=== PATIENT | female | born 1950 | race Caucasian/White ===

== ENCOUNTER 2016-06-09 18:19 | Inpatient (IN) | payer OTHER ==
[~2016-06-09] VITALS: Ht 152.4 cm; Wt 96.3 kg
[~2016-06-09 18:19] MED LIST: AMLO5TAB2 PO; CTP/1 PO; FERR325T51 PO; FURO-85 PO; GABA-113 PO; INSUINJ7 SC; INSUINJ8 SC; LOVA20TA4 PO; METO25TA3 PO; MULT-506 PO; POLYSOL21 OPB; PRLSR20 PO
[2016-06-09] MEDS ORDERED: MECLIZINE HCL 12.5 MG TAB PO STA (19:18)
[2016-06-09] MEDS ORDERED: SODIUM CHLORIDE 0.9% 1000ML 250 ML IV STA (19:18)
[2016-06-09] MEDS ORDERED: ACETAMINOPHEN 500 MG TAB PO STA (19:18)
[2016-06-09 19:27] LABS: BASO % 0.3 %; BASO ABS # 0.03 K/uL (0-0.2); COMPLETE YES; EOS % 4.6 %; HEMATOCRIT 28.9 % (37-47); IG% 0.9 %; LYMPH % 15.9 %; MEAN CELL VOLUME 85.5 fL (80-100); MEAN CORPUSCULAR HEMOGLOBIN 28.7 pg (25-34); MEAN CORPUSCULAR HGB CONC 33.6 g/dl (32-36); MONO % 3.1 %; NEUT % 75.2 %; PLATELET COUNT 266 K/uL (130-400); RED BLOOD COUNT 3.38 M/uL (4.2-5.4); WHITE BLOOD COUNT 11.34 K/uL (4.8-10.8)
--- NOTE | 2016-06-09 19:29 | EMERGENCY ROOM VISIT NOTE ---
History Report prepared by Kwame: Clifton Singh Under the Supervision of: Dr. Abe Palencia M.D. First contact with patient: 19:08 Chief Complaint: DIZZY Stated Complaint: DIZZINESS History of Present Illness The patient is a 65 year old female who presents to the Emergency Room with complaints of persistent dizziness beginning twelve hours prior to arrival. She currently rates her discomfort as an 8/10 in severity. She associates a headache , difficulty focusing her vision, and right arm numbness with today's symptoms. The patient states her dizziness worsens with movement and improves with rest. She notes the vision has appeared blurry since she woke up this morning. The patient states she has a history of vertigo. She notes her right shoulder began feeling numb three hours ago, and she states a history of a right shoulder replacement, as well. The patient denies recent falls or injury to her right shoulder. She states she did not experience these symptoms yesterday, but she did have a headache yesterday before she went to bed that was an 8/10. The patient denies taking anything for her headache yesterday. She notes she has a history of a stroke in November 2014, in which, she has muffled hearing in her left ear. The patient states she takes Aspirin. She denies nausea, vomiting, urinary symptoms, bloody or black stool, fever, abdominal pain, chest pain, numbness in the face, and change in speech. 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 A total of 10 systems reviewed and were otherwise negative. Past Medical & Surgical Medical Problems: (1) Anxiety (2) CAD (coronary artery disease) (3) CKD (chronic kidney disease) stage 3, GFR 30-59 ml/min (4) Depression (5) Diabetes (6) GERD (gastroesophageal reflux disease) (7) Hyperlipidemia (8) Hypertension (9) Interstitial lung disease (10) KUSHAL (obstructive sleep apnea) Surgical Problems: (1) Hx of shoulder surgery (2) Hx of total knee replacement Family History Diabetes mellitus FHx: gallbladder disease Hypertension Kidney disease Social History Smoking Status: Never Smoker Alcohol Use: none Drug Use: none Marital Status: Housing Status: lives with family Current/Historical Medications Scheduled Amlodipine Besylate (Amlodipine Besylate), 10 MG PO DAILY Aspirin (Aspirin Ec), 81 MG PO DAILY Calcium/Vitamin D ([place] 500 Plus D), 1 TAB PO DAILY Cholecalciferol (Vitamin D3), 1 TAB PO DAILY Docusate Sodium (Docusate Sodium), 1 CAP PO BID Ferrous Sulfate (Ferrous Sulfate), 325 MG PO BID Furosemide (Furosemide), 20 MG PO DAILY Insulin Isophane (Human) (Novolin N Relion), 55 UNITS SC Q12 Insulin Regular (Human) (Novolin R Relion), SQ ACHS Magnesium Oxide (Mag-Ox), 400 MG PO DAILY Metoprolol Tartrate (Lopressor), 12.5 MG PO BID Nystatin (Topical) (Nystatin), 1 APPLN TOP TID Pantoprazole Sodium (Protonix), 20 MG PO DAILY Simvastatin (Simvastatin), 10 MG PO DAILY Sumatriptan Succinate (Imitrex), 25 MG PO PRN UD Scheduled PRN Acetaminophen Tab (Tylenol), 650 MG PO Q6 PRN for Pain Meclizine Hcl (Meclizine Hcl), 25 MG PO TID PRN for Dizziness or Vertigo Allergies Coded Allergies: Codeine (Verified Allergy, Intermediate, hives, 09/23/15) Morphine (Verified Allergy, Mild, 09/23/15) Pioglitazone (Verified Adverse Reaction, Intermediate, Rash/Fluid retention, 09/23/15) RETAINS FLUID Physical Exam Vital Signs Date Time Temp Pulse Resp B/P Pulse Ox O2 Delivery O2 Flow Rate FiO2 06/09/16 20:25 59 26 138/61 97 Room Air 06/09/16 19:43 Room Air 06/09/16 19:21 53 06/09/16 18:56 36.6 67 18 114/59 94 Room Air Physical Exam GENERAL: Patient is in no acute distress. HEENT: No nystagmus. No acute trauma, normocephalic atraumatic, mucous membranes moist, no nasal congestion, no scleral icterus. NECK: No stridor, no adenopathy, no meningismus, trachea is midline. LUNGS: Clear to auscultation bilaterally, no wheeze, no rhonchi, breath sounds equal. HEART: Bradycardic with a regular rhythm, no murmurs. ABDOMEN: Soft, nontender, bowel sounds positive, no hernias, no peritonitis. EXTREMITIES: Mild bilateral pedal edema. No cyanosis, no signs for acute trauma. NEUROLOGIC: No speech slur or facial droop. Oriented X 3 and awake. No deficits to the lower extremities. Right upper extremity testing impossible due to previous right shoulder injury. SKIN: No rash, no jaundice, no diaphoresis. Medical Decision & Procedures ER Provider Diagnostic Interpretation: X ray results and stated below per my interpretation and radiologist interpretation. Other radiology results and stated below per my review and radiologist interpretation: SINGLE VIEW CHEST CLINICAL HISTORY: Weakness. Change in mental status. FINDINGS: An AP, portable, upright chest radiograph is compared to study dated 07/17/2015. The examination is degraded by portable technique, large body habitus, apical lordotic positioning, and patient rotation. The heart is enlarged and there is atherosclerotic calcification of the thoracic aorta. The pulmonary vasculature is noncongested. Chronic interstitial thickening is similar to previous. The lungs and pleural spaces are clear. No pneumothorax is seen. The skeletal structures are osteopenic. The bony thorax is grossly intact. A right shoulder arthroplasty is in place. IMPRESSION: Cardiomegaly with no acute cardiopulmonary abnormality. Electronically signed by: Abe Tanner M.D. 06/09/2016 8:[address] SCAN OF THE BRAIN WITHOUT IV CONTRAST CLINICAL HISTORY: Change in mental status. Weakness. COMPARISON STUDY: CT of the brain dated 07/17/2015. TECHNIQUE: Unenhanced axial CT scan of the brain is performed from the vertex to the skull base. CT DOSE: 537.48 mGy.cm FINDINGS: Brain parenchyma: There are age-related involutional changes noting minimal subcortical and periventricular microangiopathic change. There is no hemorrhage, mass effect, or evidence of acute territorial ischemia by CT criteria. Dang-white matter is preserved. No extra-axial fluid collection is seen. Ventricles, sulci, cisterns: Prominent secondary to involutional change. Intracranial vasculature: There is atherosclerotic calcification of the cavernous carotid and vertebral arteries. Calvarium: Unremarkable. Sinuses and mastoids: A retention cyst is partially imaged in the left maxillary antrum. Minimal secretions are seen within the sphenoid sinuses. The remaining visualized paranasal sinuses are clear. The mastoid air cells are well pneumatized. Orbits: The bony orbits are grossly intact. There are bilateral ocular lens implants. IMPRESSION: There is no hemorrhage, mass effect, or evidence of acute territorial ischemia by CT criteria. Electronically signed by: Abe Tanner M.D. 06/09/2016 8:13 PM Laboratory Results 06/09/16 19:10 Red Blood Count 3.38, Mean Corpuscular Volume 85.5, Mean Corpuscular Hemoglobin 28.7, Mean Corpuscular Hemoglobin Concent 33.6, Mean Platelet Volume 10.0, Neutrophils (%) (Auto) 75.2, Lymphocytes (%) (Auto) 15.9, Monocytes (%) (Auto) 3.1, Eosinophils (%) (Auto) 4.6, Basophils (%) (Auto) 0.3, Neutrophils # (Auto) 8.54, Lymphocytes # (Auto) 1.80, Monocytes # (Auto) 0.35, Eosinophils # (Auto) 0.52, Basophils # (Auto) 0.03 06/09/16 19:10 Test 06/09/16 19:10 06/09/16 19:23 06/09/16 19:40 White Blood Count 11.34 K/uL (4.8-10.8) Red Blood Count 3.38 M/uL (4.2-5.4) Hemoglobin 9.7 g/dL (12.0-16.0) Hematocrit 28.9 % (37-47) Mean Corpuscular Volume 85.5 fL (80-100) Mean Corpuscular Hemoglobin 28.7 pg (25-34) Mean Corpuscular Hemoglobin Concent 33.6 g/dl (32-36) Platelet Count 266 K/uL (130-400) Mean Platelet Volume 10.0 fL (7.4-10.4) Neutrophils (%) (Auto) 75.2 % Lymphocytes (%) (Auto) 15.9 % Monocytes (%) (Auto) 3.1 % Eosinophils (%) (Auto) 4.6 % Basophils (%) (Auto) 0.3 % Neutrophils # (Auto) 8.54 K/uL (1.4-6.5) Lymphocytes # (Auto) 1.80 K/uL (1.2-3.4) Monocytes # (Auto) 0.35 K/uL (0.11-0.59) Eosinophils # (Auto) 0.52 K/uL (0-0.5) Basophils # (Auto) 0.03 K/uL (0-0.2) RDW Standard Deviation 43.8 fL (36.4-46.3) RDW Coefficient of Variation 14.2 % (11.5-14.5) Immature Granulocyte % (Auto) 0.9 % Immature Granulocyte # (Auto) 0.10 K/uL (0.00-0.02) Prothrombin Time 10.0 SECONDS (9.0-12.0) Prothromb Time International Ratio 0.9 (0.9-1.1) Activated Partial Thromboplast Time 26.8 SECONDS (21.0-31.0) Partial Thromboplastin Ratio 1.0 Anion Gap 8.0 mmol/L (3-11) Est Creatinine Clear Calc Drug Dose 18.2 ml/min Estimated GFR () 17.3 Estimated GFR (Non- 14.9 BUN/Creatinine Ratio 15.2 (10-20) Calcium Level 8.4 mg/dl (8.5-10.1) Total Bilirubin 0.2 mg/dl (0.2-1) Aspartate Amino Transf (AST/SGOT) 11 U/L (15-37) Alanine Aminotransferase (ALT/SGPT) 21 U/L (12-78) Alkaline Phosphatase 82 U/L (45-117) Troponin I 0.024 ng/ml (0-0.045) Total Protein 6.4 gm/dl (6.4-8.2) Albumin 2.7 gm/dl (3.4-5.0) Globulin 3.7 gm/dl (2.5-4.0) Albumin/Globulin Ratio 0.7 (0.9-2) Thyroid Stimulating Hormone (TSH) 2.560 uIu/ml (0.300-4.500) Hepatitis C Antibody Screen NEG (NEG) Urine Color DK YELLOW Urine Appearance TURBID (CLEAR) Urine pH 5.0 (4.5-7.5) Urine Specific [place] 1.029 (1.000-1.030) Urine Protein 4+ (NEG) Urine Glucose (UA) 1+ (NEG) Urine Ketones TRACE (NEG) Urine Occult Blood 3+ (NEG) Urine Nitrite POS (NEG) Urine Bilirubin NEG (NEG) Urine Urobilinogen NEG (NEG) Urine Leukocyte Esterase MODERATE (NEG) Urine WBC (Auto) >30 /hpf (0-5) Urine RBC (Auto) >30 /hpf (0-4) Urine Hyaline Casts (Auto) 10-30 /lpf (0-5) Urine Epithelial Cells (Auto) >30 /lpf (0-5) Urine Bacteria (Auto) 2+ (NEG) Urine Pathogenic Casts /lpf (0) Urine Yeast (Auto) PRESENT (NONE PRSENT) Laboratory results reviewed by me. Medications Administered Medications (Trade) Dose Ordered Sig/Aleks Route Start Time Stop Time Status Last Admin Dose Admin Sodium Chloride (Nss 1000ml) 250 ml @ 999 mls/hr Q16M STAT IV 06/09/16 19:18 06/09/16 19:33 DC 06/09/16 20:21 999 MLS/HR Meclizine HCl (Antivert Tab) 12.5 mg NOW STAT PO 06/09/16 19:18 06/09/16 19:20 DC 06/09/16 20:20 12.5 MG Acetaminophen 1000 mg 1,000 mg NOW STAT PO 06/09/16 19:18 06/09/16 19:20 DC 06/09/16 20:20 1,000 MG Sodium Chloride (Nss 1000ml) 1,000 ml @ 125 mls/hr Q8H STAT IV 06/09/16 19:47 06/09/16 23:21 DC 06/09/16 20:21 125 MLS/HR Ceftriaxone Sodium (Rocephin Inj) 1 gm NOW STAT IV 06/09/16 20:24 06/09/16 20:25 DC 06/09/16 20:34 1 GM ECG Indication: other (dizziness) Rate (beats per minute): 54 Rhythm: sinus bradycardia Findings: no acute ischemic change, no ectopy, other (old anterior infarct) ED Course 1910: The patient was evaluated in room C9. A complete history and physical exam was performed. 1917: Ordered Tylenol Tab 1,000 mg PO, Antivert Tab 12.5 mg PO, Sodium Chloride 250 ml @ 999 mls/hr IV. 2027: Reevaluated and updated the patient at this time. 1946: Ordered Sodium Chloride 1,000 ml @ 125 mls/hr IV. 2023: Ordered Rocephin Inj 1 gm IV. 2058: I spoke to Carola Walsh PA-C, [facility] (Hospitalist) about the patient' s case, and she will follow the patient for further evaluation. Medical Decision The differential diagnoses include but are not limited to: vertigo, intracranial bleeding, stroke, worsening renal failure, electrolyte imbalance, anemia, infection, UTI. There is a mild leukocytosis which would be consistent with infection. The patient is somewhat anemic but this is baseline looking back at previous testing. Renal panel testing shows acute renal failure. There was no hepatitis. Urinalysis shows significant infection, urine culture is pending. Chest x-ray does not show pneumonia or CHF. EKG shows a sinus bradycardia, no acute ischemia. Brain CT shows no acute bleed or mass effect. The patient received IV saline, IV ceftriaxone. She received oral meclizine and oral Tylenol. The patient does feel somewhat improved. She is in acute renal failure, she has an acute UTI and a leukocytosis. I do think admission/observation is warranted. I spoke to the patient and to case management. The on-call hospitalist was consulted. Consults Time Called: 2025 Consulting Physician: Carola Walsh PA-C, [facility] (Hospitalist) Returned Call: [id number] I spoke to Carola Walsh PA-C, [facility] (Hospitalist) about the patient's case , and she will follow the patient for further evaluation. Impression Primary Impression: Acute renal failure Additional Impressions: UTI (urinary tract infection) Dizziness Scribe Attestation The scribe's documentation has been prepared under my direction and personally reviewed by me in its entirety. I confirm that the note above accurately reflects all work, treatment, procedures, and medical decision making performed by me. Departure Information Dispostion Being Evaluated By Hospitalist Referrals Yanet Golden M.D. (PCP) Problem Qualifiers
[2016-06-09 19:37] LABS: INR 0.9 (0.9-1.1)
[2016-06-09 19:42] LABS: BUN/CREATININE RATIO 15.2 (10-20); CALCIUM 8.4 mg/dl (8.5-10.1); CREATININE 3.1 mg/dl (0.60-1.20); POTASSIUM 4.9 mmol/L (3.5-5.1)
[2016-06-09] MEDS ORDERED: SODIUM CHLORIDE 0.9% 1000ML 1,000 ML IV STA (19:47)
[2016-06-09 19:56] LABS: ALB/GLOB RATIO 0.7 (0.9-2); THYROID STIMULATING HORMONE 2.56 uIu/ml (0.300-4.500)
[2016-06-09 20:11] LABS: URINE APPEARANCE TURBID (CLEAR); URINE COLOR DK YELLOW; URINE EPITHELIAL CELL AUTO >30 /lpf (0-5); URINE NITRITE POS (NEG); URINE SPECIFIC GRAVITY 1.029 (1.000-1.030); UROBILINOGEN NEG (NEG); ZZURINE CULT IF INDIC CATH YES
--- NOTE | 2016-06-09 20:14 | DIAGNOSTIC IMAGING REPORT ---
CT SCAN OF THE BRAIN WITHOUT IV CONTRAST CLINICAL HISTORY: Change in mental status. Weakness. COMPARISON STUDY: CT of the brain dated 07/17/2015. TECHNIQUE: Unenhanced axial CT scan of the brain is performed from the vertex to the skull base. CT DOSE: 537.48 mGy.cm FINDINGS: Brain parenchyma: There are age-related involutional changes noting minimal subcortical and periventricular microangiopathic change. There is no hemorrhage, mass effect, or evidence of acute territorial ischemia by CT criteria. Dang-white matter is preserved. No extra-axial fluid collection is seen. Ventricles, sulci, cisterns: Prominent secondary to involutional change. Intracranial vasculature: There is atherosclerotic calcification of the cavernous carotid and vertebral arteries. Calvarium: Unremarkable. Sinuses and mastoids: A retention cyst is partially imaged in the left maxillary antrum. Minimal secretions are seen within the sphenoid sinuses. The remaining visualized paranasal sinuses are clear. The mastoid air cells are well pneumatized. Orbits: The bony orbits are grossly intact. There are bilateral ocular lens implants. IMPRESSION: There is no hemorrhage, mass effect, or evidence of acute territorial ischemia by CT criteria. Electronically signed by: Abe Tanner M.D. 06/09/2016 8:13 PM Dictated Date/Time: 06/09/2016 8:11 PM
[2016-06-09 20:15] LABS: MANUAL MICROSCOPIC REQUIRED? NO; REVIEW REQ? YES; URINE BILIRUBIN NEG (NEG)
--- NOTE | 2016-06-09 20:21 | DIAGNOSTIC IMAGING REPORT ---
SINGLE VIEW CHEST CLINICAL HISTORY: Weakness. Change in mental status. FINDINGS: An AP, portable, upright chest radiograph is compared to study dated 07/17/2015. The examination is degraded by portable technique, large body habitus, apical lordotic positioning, and patient rotation. The heart is enlarged and there is atherosclerotic calcification of the thoracic aorta. The pulmonary vasculature is noncongested. Chronic interstitial thickening is similar to previous. The lungs and pleural spaces are clear. No pneumothorax is seen. The skeletal structures are osteopenic. The bony thorax is grossly intact. A right shoulder arthroplasty is in place. IMPRESSION: Cardiomegaly with no acute cardiopulmonary abnormality. Electronically signed by: Abe Tanner M.D. 06/09/2016 8:20 PM Dictated Date/Time: 06/09/2016 8:19 PM
[2016-06-09] MEDS ORDERED: CEFTRIAXONE SOD INJ 1 GM ADDVIAL IV STA (20:24)
[2016-06-09] MEDS ORDERED: LPR25 PO (20:28)
[2016-06-09] MEDS ORDERED: LSX20 PO (20:28)
[2016-06-09] MEDS ORDERED: INSDGI SQ (20:28)
[2016-06-09] MEDS ORDERED: ONDANSETRON INJ 2 MG/ML 2 ML VIAL IV PRN (21:30)
[2016-06-09] MEDS ORDERED: ACETAMINOPHEN 325 MG TAB PO PRN (21:30)
[2016-06-09] MEDS ORDERED: GLUCAGON FOR INJ 1 MG VIAL SQ PRN (21:45)
[2016-06-09] MEDS ORDERED: DEXTROSE 50% 50 ML SYR IV PRN (21:45)
[2016-06-09] MEDS ORDERED: GLUCOSE 10 TABS/TUBE PO PRN (21:45)
[2016-06-09] MEDS ORDERED: MECLIZINE HCL 12.5 MG TAB PO PRN (21:45)
[2016-06-09] MEDS ORDERED: GLUCOSE 40% GEL 15 GM TUBE PO PRN (21:45)
--- NOTE | 2016-06-09 22:02 | History and Physical ---
History & Physical Date & Time of Service: June 09, 2016 at 21:43 Chief Complaint: Dizziness Primary Care Physician: Yanet Golden M.D. History of Present Illness Source: patient, clinic records, hospital records Patient seen and examined. 65 year old female with PMHx of IDDM, CKD stage IV, KUSHAL, HLD, HTN and history of CVA presents to the ED complaining of dizziness x 1 day. Patient reports she has felt dizzy all day. She states it is worse with movement and describes it as "just not feeling right" She has an associated sharp frontal headache that she rates as a 7/10. She also reports blurry vision. She states that she was going to just wait it out but when she went to the bathroom she was too off balance to walk down the ac. So she came to the ED for further evaluation. She states that she has some rhinorrhea that she attributes to allergies. She also reports her left ear feels clogged but that this ear was effect by her stroke. She took antivert at home with minimal relief. She denies fevers, chills, chest pain, SOB, nausea, vomiting, diarrhea, dysuria, calf pain and edema. She is on insulin for diabetes, BSG is usually between 200-500, she took her insulin today. In the ED VS are stable. CT head is negative, WBC count is mildly elevated at 11K, UA shows infection. Crea is 3.1 from baseline of 1.8. BSG is 64. She received Rocephin and IVFs, and Antivert. She is resting comfortably. She will be admitted for further workup and treatment. Past Medical/Surgical History Medical Problems: (1) Anxiety Status: Chronic (2) CAD (coronary artery disease) Status: Chronic (3) CKD (chronic kidney disease) stage 3, GFR 30-59 ml/min Status: Chronic (4) Depression Status: Chronic (5) Diabetes Status: Chronic (6) GERD (gastroesophageal reflux disease) Status: Chronic (7) Hyperlipidemia Status: Chronic (8) Hypertension Status: Chronic (9) Interstitial lung disease Status: Chronic (10) KUSHAL (obstructive sleep apnea) Permanent Comment: CPAP HS Status: Chronic Surgical Problems: (1) Hx of shoulder surgery Status: Resolved (2) Hx of total knee replacement Status: Resolved Family History Diabetes mellitus FHx: gallbladder disease Hypertension Kidney disease Social History Smoking Status: Never Smoker Alcohol Use: none Drug Use: none Marital Status: Housing status: lives with family Immunizations History of Influenza Vaccine: No History of Tetanus Vaccine?: utd Tetanus Immunization Date: Feb 19, 2006 History of Pneumococcal: Yes History of Hepatitis B Vaccine: No Allergies Coded Allergies: Codeine (Verified Allergy, Intermediate, hives, 09/23/15) Morphine (Verified Allergy, Mild, 09/23/15) Pioglitazone (Verified Adverse Reaction, Intermediate, Rash/Fluid retention, 09/23/15) RETAINS FLUID Home Medications Scheduled Amlodipine Besylate (Amlodipine Besylate), 10 MG PO DAILY Aspirin (Aspirin Ec), 81 MG PO DAILY Calcium/Vitamin D (Os-George 500 Plus D), 1 TAB PO DAILY Cholecalciferol (Vitamin D3), 1 TAB PO DAILY Docusate Sodium (Docusate Sodium), 1 CAP PO BID Ferrous Sulfate (Ferrous Sulfate), 325 MG PO BID Furosemide (Furosemide), 20 MG PO DAILY Insulin Isophane (Human) (Novolin N Relion), 55 UNITS SC Q12 Insulin Regular (Human) (Novolin R Relion), SQ ACHS Magnesium Oxide (Mag-Ox), 400 MG PO DAILY Metoprolol Tartrate (Lopressor), 12.5 MG PO BID Nystatin (Topical) (Nystatin), 1 APPLN TOP TID Pantoprazole Sodium (Protonix), 20 MG PO DAILY Simvastatin (Simvastatin), 10 MG PO DAILY Sumatriptan Succinate (Imitrex), 25 MG PO PRN UD Scheduled PRN Acetaminophen Tab (Tylenol), 650 MG PO Q6 PRN for Pain Meclizine Hcl (Meclizine Hcl), 25 MG PO TID PRN for Dizziness or Vertigo Review of Systems Constitutional: No chills, No fever Eyes: + worsening of vision ENT: + nasal symptoms Respiratory: No cough, No shortness of breath Cardiovascular: No chest pain, No edema, No palpitations Abdomen: No constipation, No diarrhea, No nausea, No pain, No vomiting Musculoskeletal: No calf pain, No swelling Genitourinary - Female: No dysuria Neurologic: No numbness/tingling, No vertigo Psychiatric: No depression symptoms Endocrine: No fatigue Hematologic / Lymphatic: No abnormal bleeding/bruising, No clotting problems Integumentary: No itch, No rash Allergic / Immunologic: No environmental allergies Physical Exam Vital Signs Date Time Temp Pulse Resp B/P Pulse Ox O2 Delivery O2 Flow Rate FiO2 06/09/16 20:25 59 26 138/61 97 Room Air 06/09/16 19:43 Room Air 06/09/16 19:21 53 06/09/16 18:56 36.6 67 18 114/59 94 Room Air General Appearance: + pertinent finding (Pleasant obese 65 year old female who appears older than stated age lying in bed in NAD ) Head: normocephalic, atraumatic Eyes: PERRL, EOMI, sclerae normal ENT: hearing grossly normal, TMs normal, pharynx normal Neck: supple, no JVD Respiratory/Chest: chest non-tender, lungs clear, normal breath sounds, no respiratory distress, no accessory muscle use Cardiovascular: regular rate, rhythm, no edema, no gallop, no JVD, no murmur, normal peripheral pulses Abdomen/GI: normal bowel sounds, non tender, soft Back: normal inspection, no CVA tenderness, no muscle spasm Extremities/Musculoskelatal: no calf tenderness, normal capillary refill, no pedal edema Neurologic/Psych: alert, oriented x 3, + pertinent finding (decrease strength right arm secondary to shoulder surgery, otherwise no focal deficits ) Skin: normal color, warm/dry, no rash Lymphatic: no adenopathy Diagnostics Laboratory Results Results Past 24 Hours Test 06/09/16 19:10 06/09/16 19:40 Range/Units White Blood Count 11.34 4.8-10.8 K/uL Red Blood Count 3.38 4.2-5.4 M/uL Hemoglobin 9.7 12.0-16.0 g/dL Hematocrit 28.9 37-47 % Mean Corpuscular Volume 85.5 80-100 fL Mean Corpuscular Hemoglobin 28.7 25-34 pg Mean Corpuscular Hemoglobin Concent 33.6 32-36 g/dl Platelet Count 266 130-400 K/uL Mean Platelet Volume 10.0 7.4-10.4 fL Neutrophils (%) (Auto) 75.2 % Lymphocytes (%) (Auto) 15.9 % Monocytes (%) (Auto) 3.1 % Eosinophils (%) (Auto) 4.6 % Basophils (%) (Auto) 0.3 % Neutrophils # (Auto) 8.54 1.4-6.5 K/uL Lymphocytes # (Auto) 1.80 1.2-3.4 K/uL Monocytes # (Auto) 0.35 0.11-0.59 K/uL Eosinophils # (Auto) 0.52 0-0.5 K/uL Basophils # (Auto) 0.03 0-0.2 K/uL RDW Standard Deviation 43.8 36.4-46.3 fL RDW Coefficient of Variation 14.2 11.5-14.5 % Immature Granulocyte % (Auto) 0.9 % Immature Granulocyte # (Auto) 0.10 0.00-0.02 K/uL Prothrombin Time 10.0 9.0-12.0 SECONDS Prothromb Time International Ratio 0.9 0.9-1.1 Activated Partial Thromboplast Time 26.8 21.0-31.0 SECONDS Partial Thromboplastin Ratio 1.0 Sodium Level 144 136-145 mmol/L Potassium Level 4.9 3.5-5.1 mmol/L Chloride Level 114 98-107 mmol/L Carbon Dioxide Level 22 21-32 mmol/L Anion Gap 8.0 3-11 mmol/L Blood Urea Nitrogen 47 7-18 mg/dl Creatinine 3.10 0.60-1.20 mg/dl Est Creatinine Clear Calc Drug Dose 18.2 ml/min Estimated GFR () 17.3 Estimated GFR (Non- 14.9 BUN/Creatinine Ratio 15.2 10-20 Random Glucose 64 70-99 mg/dl Calcium Level 8.4 8.5-10.1 mg/dl Total Bilirubin 0.2 0.2-1 mg/dl Aspartate Amino Transf (AST/SGOT) 11 15-37 U/L Alanine Aminotransferase (ALT/SGPT) 21 12-78 U/L Alkaline Phosphatase 82 45-117 U/L Troponin I 0.024 0-0.045 ng/ml Total Protein 6.4 6.4-8.2 gm/dl Albumin 2.7 3.4-5.0 gm/dl Globulin 3.7 2.5-4.0 gm/dl Albumin/Globulin Ratio 0.7 0.9-2 Thyroid Stimulating Hormone (TSH) 2.560 0.300-4.500 uIu/ml Urine Color DK YELLOW Urine Appearance TURBID CLEAR Urine pH 5.0 4.5-7.5 Urine Specific Telephone 1.029 1.000-1.030 Urine Protein 4+ NEG Urine Glucose (UA) 1+ NEG Urine Ketones TRACE NEG Urine Occult Blood 3+ NEG Urine Nitrite POS NEG Urine Bilirubin NEG NEG Urine Urobilinogen NEG NEG Urine Leukocyte Esterase MODERATE NEG Urine WBC (Auto) >30 0-5 /hpf Urine RBC (Auto) >30 0-4 /hpf Urine Hyaline Casts (Auto) 10-30 0-5 /lpf Urine Epithelial Cells (Auto) >30 0-5 /lpf Urine Bacteria (Auto) 2+ NEG Urine Pathogenic Casts 0 /lpf Urine Yeast (Auto) PRESENT NONE PRSENT Microbiology Results 06/09/16 Urine Culture, Received Pending Diagnostic Radiology CXR Per radiologist read: IMPRESSION: Cardiomegaly with no acute cardiopulmonary abnormality. CT HEAD Per radiologist read: IMPRESSION: There is no hemorrhage, mass effect, or evidence of acute territorial ischemia by CT criteria. EKG Sinus Bradycardia 54 BPM, QTc 443 Impression Assessment and Plan 65 year old female presents to the ED complaining of dizziness, vision changes. URINARY TRACT INFECTION -Admit to tele -WBC count 11K, afebrile, VSS -Previous urine culture with multidrug resistant e.coli -Will empirically treat with ertapenem, pharmacy consulted for dosing d/t poor crea clearance -Gentle IVFs -urine culture pending -CBC, PRP, Mg in AM VERTIGO,VISION CHANGES -? cause differential diagnosis to include, hypoglycemia, CVA, labyrinthitis in setting of allergic rhinitis and other etiologies -BSG much lower than baseline usually runs between 200-500 at home, was 64 on arrival, will give orange juice -CT head negative for acute changes -Check MRI head, to r/o intracranial events -check carotid dopplers -monitor BSGs closely, pharmacy consulted for glycemic control -Antivert prn vertigo -neuro checks -monitor in tele ACUTE RENAL FAILURE on CKD stage IV -Crea 3.1 baseline 1.8 -likely secondary to diuretic use -hold Lasix -gentle IVF hydration -avoid other nephrotoxic agents as able -follow PRP IDDM -With hypoglycemia, BSG 65-75. States glucose at home is 200-500 -? if this is cause of patient's symptoms -[place] juice given -hold home insulin -SSI coverage -update A1c -pharmacy consult for glycemic management -check BSG q4h -consistent carb diet KUSHAL -continue CPAP HTN -stable -continue BB -hold Lasix for GARETH H/O CVA -continue aspirin, statin GERD -continue PPI DVT PROPHYLAXIS: Sq heparin CODE STATUS:FULL CODE DISPO:In my clinical judgment this beneficiary meets acute admission criteria, established by [facility], that includes being hospitalized through two midnights. Patient seen in collaboration with Dr. Hall Attending Note: Patient is a 65 yr old female with multiple comorbidities presents with history of dizziness, having balance issues secondary to dizziness, frontal headache, RUE numbness since 1 day duration. Patient also states her blood sugar levels have been labile. Also reports blurry vision which is chronic per patient. She noticed her urine to have afoul smell but denies any other urinary symptoms. Took Antivert at home without much relief. CT head showed no acute process. Physical Exam: Vitals signs as noted above General Appearance:+ Obese, no apparent distress Head: normocephalic, Atraumatic Eyes: normal inspection, EOMI, PERRL Neck: supple, Trachea midline Respiratory/Chest: Normal breath sounds, CTA, No accessory muscle use Cardiovascular: S1, S2, No murmur Abdomen/GI:Soft, Non tender, Bowel sounds present Extremities/Musculoskelatal:normal inspection, Trace edema Neurologic/Psych:AAOX3, grossly no focal neurological deficits. RUE limited exam Skin:normal color,warm Assessment and Plan: UTI: H/O multidrug resistant E.coli Start Ertapenem IV fluids Follow up cultures Stroke like symptoms: CT head/Carotid Doppler:No acute process check MRI GARETH on CKD IV Likely prerenal IV fluids Monitor renal function I personally reviewed the record. Patient is interviewed and examined at bedside. Patient's care is coordinated with Carola Walsh. Please refer to the documentation above for details of patient's presentation and for discussion of other issues. VTE Prophylaxis VTE Risk Assessment Done? Y/N: Yes Risk Level: Moderate
[2016-06-09] MEDS ORDERED: INVANZ~PHARMACY CONSULT IN PROGRESS PRN (22:33)
--- NOTE | 2016-06-09 22:39 | DIAGNOSTIC IMAGING REPORT ---
ULTRASOUND OF THE CAROTID ARTERIES CLINICAL HISTORY: Dizziness. COMPARISON STUDY: Carotid artery ultrasound dated 11/23/2014. TECHNIQUE: Real-time, grayscale, and color Doppler sonography of the carotid arteries is performed. Images are reviewed in the transverse and longitudinal planes. FINDINGS: Blood pressures were not assessed due to the presence of IV catheters. The carotid arteries are patent bilaterally and demonstrate antegrade flow. There is no significant atherosclerotic plaque identified. Normal doppler arterial waveforms are seen throughout. Velocity measurements are listed below. Common carotid peak systolic velocity (cm/sec): RIGHT: 75 LEFT: 84 ICA proximal peak systolic velocity (cm/sec): RIGHT: 61 LEFT: 66 ICA mid peak systolic velocity (cm/sec): RIGHT: 84 LEFT: 84 ICA distal peak systolic velocity (cm/sec): RIGHT: 79 LEFT: 85 ICA/CC peak systolic ratio: RIGHT: 1.1 LEFT: 1.0 Antegrade flow was shown in the vertebral arteries. The external carotid arteries are patent. IMPRESSION: 1. There is no sonographic evidence of hemodynamically significant stenosis in the right or left carotid arterial system. 2. Antegrade flow is shown in the vertebral arteries. Electronically signed by: Abe Tanner M.D. 06/09/2016 10:37 PM Dictated Date/Time: 06/09/2016 10:34 PM
[2016-06-09] MEDS ORDERED: PHARMACY GLYCEMIC MGMT CONSULT PRN (22:47)
--- NOTE | 2016-06-09 22:53 | Pharmacy Progress Note ---
Glycemic: Assessment & Plan Date of Service June 09, 2016. Assessment & Plan ASSESSMENT: * 65 y/o type 2 diabetic female well known to the pharmacy glycemic service * BSGs currently low, no major stressors other than current infection * Will hold basal insulin for now and utilize Novolog w/ overnight accuchecks in case BSGs start to rise * Based on previous admissions when not on steroids, insulin requirements were minimal PLAN FOR INPATIENT GLYCEMIC CONTROL: * Basal insulin: Hold for now - glycemic pharmacist to f/u in AM * Correctional Insulin: Novolog Correction per scale ACHS + 00,04 Goal Range: Low 100 mg/dL - High 140 mg/dL Correction Factor: 15 mg/dL/unit * Prandial insulin: Per carb ratio of 1 unit per 5 grams CHO consumed Pharmacy will continue to monitor patient daily and write orders per [facility] inpatient glycemic control protocol. Thanks. * Please note that the plan above was derived based on current level of insulin resistance and hospital stress. These recommendations are appropriate for inpatient admission only. Plan of care upon discharge will need to be reassessed to avoid potential outpatient hypo/hyperglycemia.
[2016-06-09 23:17] VITALS: BP 127/74; PULSE 54; TEMP 36.5; O2SAT 97; BMI 40.1
[2016-06-10] VITALS (14 sets, daily range): BP systolic 103–188; BP diastolic 54–78; PULSE 50–64; TEMP 36.4–36.6; O2SAT 94–99; Ht 152.4 cm; Wt 96.3 kg
[2016-06-10] MEDS: ERTAPENEM IV 500 MG in SODIUM CHLORIDE 0.9% 50 ML IV SCH ×2 (00:16→22:25)
[2016-06-10] MEDS: SODIUM CHLORIDE 0.9% 1000ML 1,000 ML IV SCH ×3 (00:16→20:13)
[2016-06-10] MEDS: INSULIN ASPART 100 UNITS/ML 3 ML PEN SC SCH ×6 (04:00→21:40)
[2016-06-10] MEDS: HEPARIN SOD 5000 UNIT/0.5 ML CARP SQ SCH ×3 (06:11→21:47)
[2016-06-10 07:19] LABS: HEMATOCRIT 26.4 % (37-47); MEAN CELL VOLUME 85.7 fL (80-100); MEAN CORPUSCULAR HEMOGLOBIN 29.2 pg (25-34); MEAN CORPUSCULAR HGB CONC 34.1 g/dl (32-36); MEAN PLATELET VOLUME 9.7 fL (7.4-10.4); PLATELET COUNT 208 K/uL (130-400); RED BLOOD COUNT 3.08 M/uL (4.2-5.4)
[2016-06-10 07:54] LABS: BUN/CREATININE RATIO 15.1 (10-20); MAGNESIUM 1.9 mg/dl (1.8-2.4); POTASSIUM 4.3 mmol/L (3.5-5.1)
[2016-06-10] MEDS: AMLODIPINE BESYLATE 5 MG TAB PO SCH (08:06)
[2016-06-10] MEDS: CHOLECALCIFEROL 1000 INTER.UNIT TAB PO SCH (08:06)
[2016-06-10] MEDS: PANTOprazole SOD 40 MG TAB PO SCH (08:06)
[2016-06-10] MEDS: CALCIUM 600MG + VIT D 400 IU TAB PO SCH (08:07)
[2016-06-10] MEDS: ASPIRIN 81 MG ECTAB PO SCH (08:07)
[2016-06-10] MEDS: FERROUS SULFATE 325 MG TAB PO SCH ×2 (08:07→20:15)
[2016-06-10] MEDS: MAGNESIUM OXIDE 400 MG TAB PO SCH (08:07)
[2016-06-10] MEDS: METOPROLOL TARTRATE 25 MG TAB PO SCH ×2 (08:07→20:15)
[2016-06-10] MEDS: NYSTATIN POWDER 15GM BTL EXT SCH ×3 (08:07→20:13)
[2016-06-10] MEDS: DOCUSATE SODIUM 100 MG CAP PO SCH ×2 (08:07→20:14)
[2016-06-10 08:34] LABS: ESTIMATED AVERAGE GLUCOSE 209 mg/dl; HA1C FLAG Normal (Normal)
--- NOTE | 2016-06-10 12:03 | DIAGNOSTIC IMAGING REPORT ---
MRI OF THE BRAIN WITHOUT IV CONTRAST CLINICAL HISTORY: Dizziness. Visual changes. COMPARISON STUDY: CT of the brain dated 06/09/2016. MRI of the brain dated 07/17/2015. TECHNIQUE: MRI of the brain was performed utilizing various T1 and T2-weighted sequences in the axial, sagittal, and coronal planes. IV contrast was not administered for this examination. The examination is modestly degraded by motion artifact. FINDINGS: Brain parenchyma: There are age-related involutional changes noting mild to moderate subcortical and periventricular microangiopathic disease. There is no hemorrhage or mass effect. Chronic lacunar infarcts are identified in the left cerebellar hemisphere and the drea. There is no restricted diffusion to suggest acute ischemia. Dang-white matter differentiation is preserved. No extra-axial fluid collection is seen. The cerebellar tonsils are normal in configuration. Ventricles, sulci, and cisterns: Prominent secondary to involutional change. Pituitary and sella: Partially empty sella is incidentally noted. Intracranial vasculature: Normal flow voids are maintained at the skull base. Orbits: The bony orbits are grossly intact. Orbital contents are normal in appearance noting bilateral ocular lens implants. Sinuses and mastoids: A retention cyst is noted in the left maxillary antrum. There is mild mucosal thickening and fluid within the left sphenoid sinus. The remaining paranasal sinuses and the mastoid air cells are clear. Calvarium: Unremarkable. Cervical cord: Partially visualized cervical spinal cord is normal in morphology and signal intensity. IMPRESSION: No acute intracranial abnormality. Electronically signed by: Abe Tanner M.D. 06/10/2016 12:01 PM Dictated Date/Time: 06/10/2016 11:58 AM
--- NOTE | 2016-06-10 12:53 | Pharmacy Progress Note ---
Glycemic Control Intl Consult Date of Service June 10, 2016. Scope Glycemic Pharmacist consulted by Carola Walsh on 06/09/2016 for glycemic control and to write orders per [facility] inpatient glycemic control protocol Objective Weight (Kilograms): 93.200 Accuchecks BSG (last 24hrs): Test 06/09/16 19:10 06/09/16 21:45 06/10/16 00:05 06/10/16 04:00 Random Glucose 64 mg/dl (70-99) Bedside Glucose 72 mg/dl (70-90) 98 mg/dl (70-90) 99 mg/dl (70-90) Test 06/10/16 06:36 06/10/16 06:51 Bedside Glucose 80 mg/dl (70-90) Random Glucose 79 mg/dl (70-99) Laboratory Data (last 24hrs) Test 06/09/16 19:10 06/10/16 06:51 Anion Gap 8.0 mmol/L 9.0 mmol/L BUN/Creatinine Ratio 15.2 15.1 Blood Urea Nitrogen 47 mg/dl 45 mg/dl Creatinine 3.10 mg/dl 3.00 mg/dl Potassium Level 4.9 mmol/L 4.3 mmol/L Sodium Level 144 mmol/L 144 mmol/L White Blood Count 11.34 K/uL 8.50 K/uL Red Blood Count 3.38 M/uL Hemoglobin 9.7 g/dL Hematocrit 28.9 % Mean Corpuscular Volume 85.5 fL Mean Corpuscular Hemoglobin 28.7 pg Mean Corpuscular Hemoglobin Concent 33.6 g/dl Platelet Count 266 K/uL Mean Platelet Volume 10.0 fL Neutrophils (%) (Auto) 75.2 % Lymphocytes (%) (Auto) 15.9 % Monocytes (%) (Auto) 3.1 % Eosinophils (%) (Auto) 4.6 % Basophils (%) (Auto) 0.3 % Neutrophils # (Auto) 8.54 K/uL Lymphocytes # (Auto) 1.80 K/uL Monocytes # (Auto) 0.35 K/uL Eosinophils # (Auto) 0.52 K/uL Basophils # (Auto) 0.03 K/uL Hemoglobin A1c 8.9 % HbA1c Test 06/10/16 06:51 Hemoglobin A1c 8.9 % (4.5-5.6) H Recent Pertinent Medications Outpatient Anti-diabetic Regimen: * Novolin N 55 units q12 plus Novolin R sliding scale The patient is currently receiving: * Basal insulin: ON HOLD * Correctional Insulin: Novolog Correction per scale ACHS Goal Range: Low 100 mg/dL - High 140 mg/dL Correction Factor: 15 mg/dL/unit * Prandial insulin: Per carb ratio of 1 unit per 5 grams CHO consumed Risk Factors for Insulin Resistance: * Infection: UTI currently on Invanz * Diet: type 2 diet Assessment & Plan ASSESSMENT: * ADA & AACE recommend a goal blood sugar range 140-180 mg/dl for the majority of critically ill & non-critically ill patients. However, more stringent targets may be selected in individual cases. Will utilize more stringent goal of 100-140mg/dl based on patient age & comorbidities. Additionally, tighter glycemic control is warranted to facilitate wound/infection healing. * Ms Urrutia is a 65 y/o F who is known to the glycemic service admitted with a UTI. She last took her insulin 06/09/2016 in the morning and took Novolin R 23 units and NPH 55 units. One admission her blood sugar was well controlled with all readings below 100 mg/dL. This may be attributed to her lack of PO intake and GARETH with a serum creatinine of 3.0 mg/dL (baseline = 2.0 mg/dl). Conservative treatment will be initiated. * Previous inpatient data indicates with lower blood sugars the patient eventually required Lantus but at reduced doses. Previously without the GARETH, a dose of Lantus 10 units x 1 SQ for blood sugar of 167 mg/dL led to a blood sugar of 88 mg/dL the day after. Therefore with GARETH and continued low blood sugars, a one time dose will only be given if blood sugar greater than 180 mg/ dL. An Accucheck overnight will provide greater information about the patient. PLAN FOR INPATIENT GLYCEMIC CONTROL: * Basal insulin with LANTUS 10 units x 1 if blood sugar > 180 mg/dL * Correctional Insulin with NOVOLOG per scale ACHS * Goal Range: Low 100 mg/dL - High 140 mg/dL * Correction Factor: 15 mg/dL/unit * Nutritional / Prandial insulin per carb ratio of 1 unit per 5 grams CHO consumed * Please note that the plan above was derived based on current level of insulin resistance and hospital stress. These recommendations are appropriate for inpatient admission only. Plan of care upon discharge will need to be reassessed to avoid potential outpatient hypo/hyperglycemia. Thank you.
--- NOTE | 2016-06-10 19:32 | Progress Note ---
Internal Med Progress Note Date of Service: June 10, 2016. Provider Documentation: SUBJECTIVE: feels much better , no weakness or paresthesia no fever or chills OBJECTIVE: Vital Signs-as noted below Exam: General-no sign of distress Eyes-sclera non icteric Lungs-CTA Heart-regular S1/S2 Abdomen-soft, non tender Extremities-no lower ext edema , no rash or deformity Neuro-AAO x3, no focal deficit Lab data as noted below. ASSESSMENT & PLAN: 65 year old female presents to the ED complaining of dizziness, vision changes. URINARY TRACT INFECTION -WBC count 11K, afebrile, VSS -Previous urine culture with multidrug resistant e.coli -Will empirically treat with ertapenem, pharmacy consulted for dosing d/t poor crea clearance -urine culture ordered -plan to adjust Abx once culture report is available VERTIGO,VISION CHANGES -no evidence of CVA symptom has resolved , MRI of brain negative for CVA -CT head negative for acute changes -Antivert prn vertigo -neuro checks -pt mentions of having chronic vertigo , visual disturbance of left eye after last stoke -Neurology consult requested -ordered for PT/OT ACUTE RENAL FAILURE on CKD stage IV -Crea 3.1 baseline 1.8 -likely secondary to diuretic use -hold Lasix -gentle IVF hydration cr gradually improving -avoid other nephrotoxic agents as able -follow PRP IDDM -With hypoglycemia, BSG 65-75. States glucose at home is 200-500 -possible causing presenting symptom of dizzy spell -hold home insulin -SSI coverage -update A1c -pharmacy consult for glycemic management -check BSG q4h -consistent carb diet KUSHAL -continue CPAP HTN -stable -continue BB -hold Lasix for GARETH H/O CVA -continue aspirin, statin GERD -continue PPI DVT PROPHYLAXIS: Sq heparin CODE STATUS:FULL CODE DISPOSITION discharge home when medically stable Vital Signs: Date Time Temp Pulse Resp B/P Pulse Ox O2 Delivery O2 Flow Rate FiO2 06/11/16 15:12 36.4 58 18 174/79 99 Room Air 06/11/16 12:00 95 Room Air 06/11/16 11:55 36.5 56 18 171/76 96 Room Air 06/11/16 08:21 36.9 59 20 185/80 95 Room Air 62 154/70 64 167/79 0 06/11/16 08:00 95 Room Air 06/11/16 04:17 36.6 63 20 180/79 94 Room Air 06/11/16 04:00 Room Air 06/11/16 00:00 Room Air 06/10/16 23:20 64 177/70 06/10/16 23:19 60 159/78 06/10/16 23:18 36.6 60 17 188/72 96 Room Air 06/10/16 20:00 99 Room Air 06/10/16 19:12 36.4 57 18 164/57 99 Room Air Lab Results: Results Past 24 Hours Test 06/10/16 16:15 06/10/16 20:38 06/11/16 01:55 06/11/16 06:59 Range/Units Bedside Glucose 140 125 94 168 70-90 mg/dl Test 06/11/16 07:07 06/11/16 10:13 06/11/16 11:27 Range/Units Sodium Level 141 136-145 mmol/L Potassium Level 5.2 3.5-5.1 mmol/L Chloride Level 113 98-107 mmol/L Carbon Dioxide Level 18 21-32 mmol/L Anion Gap 10.0 3-11 mmol/L Blood Urea Nitrogen 48 7-18 mg/dl Creatinine 3.10 0.60-1.20 mg/dl Est Creatinine Clear Calc Drug Dose 18.5 ml/min Estimated GFR () 17.3 Estimated GFR (Non- 14.9 BUN/Creatinine Ratio 15.5 10-20 Random Glucose 164 70-99 mg/dl Calcium Level 8.0 8.5-10.1 mg/dl Bedside Glucose 176 70-90 mg/dl
[2016-06-10] MEDS: SIMVASTATIN 10 MG TAB PO SCH (20:14)
[2016-06-10] MEDS ORDERED: INSULIN GLARGINE SOLOSTAR 100 UNITS/ML 3 ML PEN SC SCH (21:00)
[2016-06-11] VITALS (12 sets, daily range): BP systolic 118–185; BP diastolic 67–84; PULSE 0–118; TEMP 36.4–36.9; O2SAT 90–99
[2016-06-11] MEDS ORDERED: CARVEDILOL 3.125 MG TAB PO ONE (00:38)
--- NOTE | 2016-06-11 00:40 | Progress Note ---
Internal Med Progress Note Date of Service: June 11, 2016. Provider Documentation: Made aware by RN of consistently elevated BP after 7 PM SBP 160-188 equivocal orthostatic BP (BP drop on sitting, BP increase on standing up) change home Lopressor to Coreg for now. continue home Norvasc Will relay to AM provider. Vital Signs: Date Time Temp Pulse Resp B/P Pulse Ox O2 Delivery O2 Flow Rate FiO2 06/11/16 04:17 36.6 63 20 180/79 94 Room Air 06/11/16 04:00 Room Air 06/11/16 00:00 Room Air 06/10/16 23:20 64 177/70 06/10/16 23:19 60 159/78 06/10/16 23:18 36.6 60 17 188/72 96 Room Air 06/10/16 20:00 99 Room Air 06/10/16 19:12 36.4 57 18 164/57 99 Room Air 06/10/16 16:00 Room Air 06/10/16 15:36 36.5 55 18 103/65 97 Room Air 06/10/16 12:00 95 Room Air 06/10/16 10:56 36.4 52 16 138/54 98 Room Air 06/10/16 09:45 55 16 164/63 97 Room Air Lab Results: Results Past 24 Hours Test 06/10/16 11:14 06/10/16 16:15 06/10/16 20:38 06/11/16 01:55 Range/Units Bedside Glucose 89 140 125 94 70-90 mg/dl Test 06/11/16 07:07 Range/Units
[2016-06-11] MEDS ORDERED: INSULIN ASPART 100 UNITS/ML 3 ML PEN SC SCH (02:00)
[2016-06-11] MEDS: SODIUM CHLORIDE 0.9% 1000ML 1,000 ML IV SCH ×3 (03:37→23:22)
[2016-06-11] MEDS: AMLODIPINE BESYLATE 5 MG TAB PO SCH (04:29)
[2016-06-11] MEDS: HEPARIN SOD 5000 UNIT/0.5 ML CARP SQ SCH ×3 (06:20→22:06)
[2016-06-11] MEDS: INSULIN ASPART 100 UNITS/ML 3 ML PEN SC SCH ×4 (07:58→20:39)
[2016-06-11] MEDS: DOCUSATE SODIUM 100 MG CAP PO SCH ×2 (08:39→20:00)
[2016-06-11] MEDS: NYSTATIN POWDER 15GM BTL EXT SCH ×3 (08:40→20:00)
[2016-06-11] MEDS: CALCIUM 600MG + VIT D 400 IU TAB PO SCH (08:40)
[2016-06-11] MEDS: FERROUS SULFATE 325 MG TAB PO SCH ×2 (08:40→20:36)
[2016-06-11] MEDS: CARVEDILOL 3.125 MG TAB PO SCH ×2 (08:40→20:34)
[2016-06-11] MEDS: ASPIRIN 81 MG ECTAB PO SCH (08:40)
[2016-06-11] MEDS: PANTOprazole SOD 40 MG TAB PO SCH (08:41)
[2016-06-11] MEDS: MAGNESIUM OXIDE 400 MG TAB PO SCH (08:41)
[2016-06-11] MEDS: CHOLECALCIFEROL 1000 INTER.UNIT TAB PO SCH (08:41)
[2016-06-11 09:49] LABS: BLOOD UREA NITROGEN 48 mg/dl (7-18); BUN/CREATININE RATIO 15.5 (10-20); CARBON DIOXIDE 18 mmol/L (21-32); CHLORIDE 113 mmol/L (98-107); GLUCOSE 164 mg/dl (70-99); SODIUM 141 mmol/L (136-145)
--- NOTE | 2016-06-11 10:01 | Pharmacy Progress Note ---
Glycemic Control: Progress Nt Date of Service June 11, 2016. Scope Glycemic Pharmacist consulted by Carola Walsh PA-C on 06/09/16 for glycemic control and to write orders per [facility] inpatient glycemic control protocol. Objective Accuchecks BSG (last 24hrs): Test 06/10/16 11:14 06/10/16 16:15 06/10/16 20:38 06/11/16 01:55 Bedside Glucose 89 mg/dl (70-90) 140 mg/dl (70-90) 125 mg/dl (70-90) 94 mg/dl (70-90) Test 06/11/16 07:07 Random Glucose 164 mg/dl (70-99) Laboratory Data (last 24hrs) Test 06/11/16 07:07 06/11/16 09:48 Anion Gap 10.0 mmol/L BUN/Creatinine Ratio 15.5 Blood Urea Nitrogen 48 mg/dl Creatinine 3.10 mg/dl Potassium Level mmol/L Sodium Level 141 mmol/L HbA1c: Test 06/10/16 06:51 Hemoglobin A1c 8.9 % (4.5-5.6) H Recent Pertinent Medications Outpatient Anti-diabetic Regimen: * Novolin N 55 units q12 plus Novolin R sliding scale The patient is currently receiving: * Basal insulin: Give Lantus 10 units if BSG >180 mg/dL * Correctional Insulin: Novolog Correction per scale ACHS Goal Range: Low 120 mg/dL - High 140 mg/dL Correction Factor: 15 mg/dL/unit * Prandial insulin: Per carb ratio of 1 unit per 5 grams CHO consumed Risk Factors for Insulin Resistance: * Infection: UTI currently on Invanz * Diet: type 2 diet Assessment & Plan ASSESSMENT: 06/11/16 * 65 y/o diabetic F who is known to the glycemic service from prior admissions, currently admitted with a UTI * Previous inpatient data indicates with lower blood sugars the patient eventually required Lantus but at reduced doses * Last night, Lantus was to be given if BSG >180 mg/dL; HS BSG 125 mg/dL so Lantus held * Fasting BSG this AM 168 mg/dL, Scr remains elevated * Plan will be to remain conservative with insulin and initiate basal insulin when BSG >180 mg/dL * ADA & AACE recommend a goal blood sugar range 140-180 mg/dl for the majority of critically ill & non-critically ill patients. However, more stringent targets may be selected in individual cases. Will utilize more stringent goal of 100-140mg/dl based on patient age & comorbidities. Additionally, tighter glycemic control is warranted to facilitate wound/infection healing. PLAN FOR INPATIENT GLYCEMIC CONTROL: * Lunch BSG ~180 mg/dL, Give Lantus 10 units X 1 now * Continue Lantus dosing based on BSG * If BSG <140 mg/dL: HOLD LANTUS * If BSG 141-180 mg/dL: Lantus 10 units * If BSG > 181 mg/dL: Lantus 20 units * Correctional Insulin with NOVOLOG per scale ACHS * Goal Range: Low 100 mg/dL - High 140 mg/dL * Correction Factor: 15 mg/dL/unit * Nutritional / Prandial insulin per carb ratio of 1 unit per 5 grams CHO consumed * Please note that the plan above was derived based on current level of insulin resistance and hospital stress. These recommendations are appropriate for inpatient admission only. Plan of care upon discharge will need to be reassessed to avoid potential outpatient hypo/hyperglycemia. Thank you.
--- NOTE | 2016-06-11 10:14 | NEPHROLOGY CONSULTATION ---
DATE OF CONSULTATION: 06/11/2016 DATE OF CONSULTATION: 06/11/2016. ATTENDING OF RECORD: Dr. Onofre. REASON FOR CONSULTATION: GARETH. HISTORY OF PRESENT ILLNESS: This is a 65-year-old female who follows with me in outpatient clinic for CKD stage IV with underlying diabetes and hypertension with history of stroke in the past who presents with elevated blood sugars, decreased appetite with upset stomach, diarrhea and odor to urine and found to have elevated white count of 11,000, urinary tract infection with a creatinine up to 3.1 from baseline of 1.8. The patient was started on IV fluids and antibiotics and creatinine has improved from 3.1 to 3 yesterday. Today's labs are still pending. The patient is tolerating the fluids well. Urine with less of an odor. Trying to control the blood sugars much better now. Denies any fevers or chills. At baseline does not have a great appetite. REVIEW OF SYSTEMS: No fevers or chills. No flank pain. Positive urine odor which is improving. Positive diarrhea. Positive anorexia. Positive GI upset. No itching. No chest pain. Positive shortness of breath with exertion. No blurry vision, no dysphagia. No rash, no ulcers. All other review of systems otherwise negative. PAST MEDICAL HISTORY: CKD stage III-IV with baseline creatinine close to 2, heart disease, depression, diabetes, GERD, hyperlipidemia, hypertension, obstructive sleep apnea on CPAP. PAST SURGICAL HISTORY: Knee replacement as well as shoulder surgery. FAMILY HISTORY: Significant for kidney disease. SOCIAL HISTORY: No smoking, no alcohol, no drugs. Lives at home with family. CURRENT MEDICATIONS: Coreg 3.125 p.o. b.i.d., Zocor 10 mg at night, aspirin 81 mg daily, Caltrate 1 tab daily, Colace 100 mg p.o. b.i.d., magnesium 400 mg daily, Norvasc 10 mg daily, vitamin D 5000 units daily, iron 325 mg p.o. b.i.d., Protonix 40 mg daily, heparin 5000 units subQ q. 8, normal saline at 100 mL an hour, ertapenem daily. PHYSICAL EXAMINATION: VITAL SIGNS: Temperature 36.6, pulse in the 60s, blood pressure 118/67 this morning, negative orthostasis, output 500 mL yesterday and 300 mL so far today. GENERAL: Awake, alert, oriented x3. EYES: No scleral icterus. EARS, NOSE, THROAT: Moist mucous membranes. NECK: Supple. PULMONARY: Clear to auscultation. CARDIAC: Regular rate and rhythm. ABDOMEN: Bowel sounds positive, soft, nontender. EXTREMITIES: Mild edema. NEUROLOGICALLY: Nonfocal. DERMATOLOGIC: No rash or ulcers noted. LABORATORIES: Pending for today, white count was 11,000 on admission, was 8.5 yesterday. H\T\H 9 and 26, platelet count 208. Yesterday's labs, sodium level 144, potassium 4.3, chloride is 114, bicarbonate is 21, BUN is 45, creatinine is 3. Hemoglobin A1c of 8.9. Calcium is 8, mag is 1.98. UA showed a pH of 5, specific gravity 1.029, 4+, protein 1+, glucose, 3+ blood, positive nitrite, moderate leukocyte esterase, greater than 30 WBCs, greater than 30 RBCs, hep C negative. Urine culture positive for E. coli. Chest x-ray shows cardiomegaly with no acute cardiopulmonary abnormality. IMPRESSION AND PLAN: Acute kidney injury. Nonoliguric with urine output of 500 mL yesterday with creatinine of 3.1 in the setting of volume depletion and urinary tract infection, likely significant enough to cause ATN. Creatinine is only improved from 3.1 to 3, however today's labs are pending. Hopefully, creatinine continues to eventually improve back down to baseline of 1.8 to 2, however, does have history of diabetes and hypertension with chronic kidney disease. The patient though seems to be clinically improving. Blood sugars appear better controlled and tolerating the IV fluids currently. Would continue the current IV fluids, monitor for signs of volume overload. No indication for emergent dialysis at this time. Will follow along. Appreciate consultation. BORIS
[2016-06-11] MEDS ORDERED: INSULIN GLARGINE SOLOSTAR 100 UNITS/ML 3 ML PEN SC ONE (14:00)
--- NOTE | 2016-06-11 14:16 | Neurology Consultation ---
Neurology Consultation Date of Consultation: June 11, 2016. Attending Physician: Syeda Onofre M.D. Primary Care Physician: Yanet Golden M.D. Reason for Consultation: vertigo History of Present Illness Source: patient Sepideh is a 65 year old female with PMH - IDDM, CKD stage IV, KUSHAL, HLD, HTN and history of CVA and vertigo presents to the ED complaining of dizziness x 1 day. She states it is worse with movement and describes it as "just not feeling right" She states that she was going to just wait it out but when she went to the bathroom she was too off balance to walk down the ac. She states that she has some rhinorrhea that she attributes to allergies. She also reports her left ear feels clogged but that this ear was effect by her stroke. She took antivert at home with minimal relief. She denies fevers, chills, chest pain, SOB , nausea, vomiting, diarrhea, dysuria, calf pain and edema. She is on insulin for diabetes, BSG is usually between 200-500, She had a negative CT head is negative, WBC count is mildly elevated at 11K, UA shows infection. Crea is 3.1 from baseline of 1.8. BSG is 64. She is currently receiving antibiotics and states the vertigo has calmed down. She is sleep when coming into room. She has no complaints at this time. denies CP, SOB, abdominal pain, one sided weakness, numbness tingling, N, V. She does report some nausea with the vertigo but no vomiting. She state the last time she had this she went to and they did maneuvers with her head that stopped the vertigo. Past Medical/Surgical History Medical Problems: (1) Acute kidney injury Status: Acute (2) Acute renal failure Status: Acute (3) Altered mental status Status: Acute (4) Dizziness Status: Acute (5) Hypercalcemia Status: Acute (6) Hyperglycemia Status: Acute (7) UTI (urinary tract infection) Status: Acute Family History Father: cancer Mother: diabetes, pertinent history of Sibling(s): coronary artery disease, heart disease, diabetes Social History Smoking Status: Never smoker Alcohol Use: none Drug Use: none Marital Status: Housing Status: lives with family Allergies Coded Allergies: Codeine (Verified Allergy, Intermediate, hives, 09/23/15) Morphine (Verified Allergy, Mild, 09/23/15) Pioglitazone (Verified Adverse Reaction, Intermediate, Rash/Fluid retention, 09/23/15) RETAINS FLUID Current Inpatient Medications Current Inpatient Medications Medications (Trade) Dose Ordered Sig/Aleks Route Start Time Stop Time Status Last Admin Dose Admin Heparin Sodium (Porcine) (Heparin Sq 5000 Unit/0.5ml) 5,000 unit Q8 SQ 06/10/16 06:00 07/10/16 05:59 06/11/16 13:19 5,000 UNIT Acetaminophen (Tylenol Tab) 650 mg Q4H PRN PO 06/09/16 21:30 07/09/16 21:29 Ondansetron HCl (Zofran Inj) 4 mg Q6H PRN IV 06/09/16 21:30 07/09/16 21:29 Miscellaneous Information 1 ea 1 ea DAILY PRN N/A 06/09/16 22:33 07/09/16 22:32 Sodium Chloride (Nss 1000ml) 1,000 ml @ 100 mls/hr Q10H IV 06/09/16 23:15 07/09/16 23:14 06/11/16 13:17 100 MLS/HR Aspirin (Ecotrin Tab) 81 mg DAILY PO 06/10/16 09:00 07/10/16 08:59 06/11/16 08:40 81 MG Calcium/Vitamin D (Caltrate Plus Tab) 1 tab DAILY PO 06/10/16 09:00 07/10/16 08:59 06/11/16 08:40 1 TAB Docusate Sodium (coLACE CAP) 100 mg BID PO 06/10/16 09:00 07/10/16 08:59 06/10/16 20:14 100 MG Magnesium Oxide (Mag-Ox Tab) 400 mg DAILY PO 06/10/16 09:00 07/10/16 08:59 06/11/16 08:41 400 MG Meclizine HCl (Antivert Tab) 25 mg TID PRN PO 06/09/16 21:45 07/09/16 21:44 Nystatin (Mycostatin Powder) 1 appln TID EXT 06/10/16 09:00 07/10/16 08:59 06/11/16 13:18 1 APPLN Simvastatin (Zocor Tab) 10 mg PM PO 06/10/16 21:00 07/10/16 20:59 06/10/16 20:14 10 MG Amlodipine Besylate (Norvasc Tab) 10 mg DAILY PO 06/10/16 09:00 07/10/16 08:59 06/11/16 04:29 10 MG Cholecalciferol (Vitamin D Tab) 5,000 inter.unit DAILY PO 06/10/16 09:00 07/10/16 08:59 06/11/16 08:41 5,000 INTER.UNIT Ferrous Sulfate (Feosol Tab) 325 mg BID PO 06/10/16 09:00 07/10/16 08:59 06/11/16 08:40 325 MG Pantoprazole Sodium (Protonix Tab) 40 mg DAILY PO 06/10/16 09:00 07/10/16 08:59 06/11/16 08:41 40 MG Insulin Aspart (novoLOG ASPART) SLIDING SCALE If C... ACHS SC 06/10/16 07:00 07/10/16 06:59 06/11/16 11:44 7 UNITS Glucose (Glucose 40% Gel) 15-30 GRAMS 15 GRAMS... UD PRN PO 06/09/16 21:45 07/09/16 21:44 Glucose (Glucose Chew Tab) 4-8 Tablets 4 Tabl... UD PRN PO 06/09/16 21:45 07/09/16 21:44 Dextrose (Dextrose 50% 50ML Syringe) 25-50ML OF 50% DW IV FOR... UD PRN IV 06/09/16 21:45 07/09/16 21:44 Glucagon (Glucagon Inj) 1 mg UD PRN SQ 06/09/16 21:45 07/09/16 21:44 Miscellaneous Information 1 ea 1 ea UD PRN N/A 06/09/16 22:47 07/09/16 22:46 Ertapenem/Sodium Chloride (Invanz Iv/Nss 50ml) 55 ml @ 110 mls/hr DAILY@2300 IV 06/09/16 23:00 06/19/16 22:59 06/10/16 22:25 110 MLS/HR Carvedilol (Coreg Tab) 3.125 mg BID PO 06/11/16 09:00 07/11/16 08:59 06/11/16 08:40 3.125 MG Insulin Glargine (Lantus Solostar Pen) SEE PROTOCOL QPM FL 06/11/16 21:00 07/11/16 20:59 Insulin Aspart (novoLOG ASPART) SLIDING SCALE If C... 0200 FL 06/12/16 02:00 07/12/16 01:59 Physical Exam Vital Signs (Past 24 Hrs): Date Time Temp Pulse Resp B/P Pulse Ox O2 Delivery O2 Flow Rate FiO2 06/11/16 12:00 95 Room Air 06/11/16 11:55 36.5 56 18 171/76 96 Room Air 06/11/16 08:21 36.9 59 20 185/80 95 Room Air 62 154/70 64 167/79 0 06/11/16 08:00 95 Room Air 06/11/16 04:17 36.6 63 20 180/79 94 Room Air 06/11/16 04:00 Room Air 06/11/16 00:00 Room Air 06/10/16 23:20 64 177/70 06/10/16 23:19 60 159/78 06/10/16 23:18 36.6 60 17 188/72 96 Room Air 06/10/16 20:00 99 Room Air 06/10/16 19:12 36.4 57 18 164/57 99 Room Air 06/10/16 16:00 Room Air 06/10/16 15:36 36.5 55 18 103/65 97 Room Air Physical Exam: Constitutional: appearance nourished, healthy and obese Ears, Nose, Mouth and Throat: mucous membranes moist, no injection and skin normal, eyes normal Cardiovascular: normal S-1 and S-2 and regular rate and rhythm Respiratory: clear to auscultation (CTA) and no rales, rhonchi or wheeze Musculoskeletal: none pitting peripheral edema Skin: no stigmata of neurocutaneous disease noted and normal and intact Eyes: extraocular muscles intact (EOMI) and pupils equal, round and reactive to light (PERRL) NEUROLOGIC EXAMINATION: Mental status: Alert and interactive Oriented [facility] and [facility], she know she live with her and granddaughter in [place] Oriented to person Speech fluent with no evidence of aphasia Cranial Nerves smile and eye brow raise symmetric, tongue midline Coordination: finger to nose without bipass but unable to lift right arm to midline due to previous shoulder surgery Gait/Stance: Posture normal. Kamilah bedside no nystagmus or symptoms evoked Motor: unable to lift right arm to midline Strength: biceps triceps, hand p d driver 5/5 bilaterally, hip flex plantar flex ext 5/5 bilaterally Laboratory Results Past 24 Hours: 06/11/16 07:07 06/11/16 10:13 Test 06/11/16 07:07 06/11/16 11:27 Anion Gap 10.0 mmol/L (3-11) Est Creatinine Clear Calc Drug Dose 18.5 ml/min Estimated GFR () 17.3 Estimated GFR (Non- 14.9 BUN/Creatinine Ratio 15.5 (10-20) Calcium Level 8.0 mg/dl (8.5-10.1) Bedside Glucose 176 mg/dl (70-90) Imaging MRI brain with and without- no acute intra cranial abnormalities carotid Doppler- There is no sonographic evidence of hemodynamically significant stenosis in the right or left carotid arterial system. Antegrade flow is shown in the vertebral arteries. Impression 65 year old female dizziness with a history of vertigo -presents with UTI , uncontrolled DM Plan 1. patient was helped with Kamilah maneuvers in the past ordered PT to try bedside 2. UTI and kidney function may be contributing to the vertigo symptoms 3. antivert prn 4. MRI with no new CVA old infarcts noted 5. orthostatic blood pressures done with negative for orthostasis 6. PT/OT for evaluation of gait and use of walker to minimize falls 7. carotid doppler with no significant stenosis 8. further recommendations to follow I have seen and discussed above patient with Dr Vincenzo Izaguirre, neurology Patient seen and discussed the above with Ashley Castellano Images reviewed along with orthostatics. History suggests recurrent BPPV as does exam which produces brief duration subjective vertigo with head rotation in either direction horizontally but not so muc in vertical axis pt hopefully will be able to assist and rx again with kamilah as meclizine often adds no significant benefit assisted will follow up tomorrow but for nwo no need for further neurological intervention or testing Vincenzo Izaguirre MD
[2016-06-11] MEDS ORDERED: CARVEDILOL 6.25 MG TAB PO SCH (20:00)
[2016-06-11] MEDS: SIMVASTATIN 10 MG TAB PO SCH (20:35)
--- NOTE | 2016-06-11 20:47 | Progress Note ---
Internal Med Progress Note Date of Service: June 11, 2016. Provider Documentation: SUBJECTIVE: OBJECTIVE: Vital Signs-as noted below Exam: General-no sign of distress Eyes-sclera non icteric Lungs-CTA Heart-regular S1/S2 Abdomen-soft, non tender Extremities-no lower ext edema , no rash or deformity Neuro-AAO x3, no focal deficit Lab data as noted below. ASSESSMENT & PLAN: 65 year old female presents to the ED complaining of dizziness, vision changes. URINARY TRACT INFECTION -WBC count 11K, afebrile, VSS -Previous urine culture with multidrug resistant e.coli -Will empirically treat with ertapenem, pharmacy consulted for dosing d/t poor crea clearance -urine culture shows E Coli , multidrug resistant , sensitive to Invanz -cont IV Invanz -ID consult requested for recommendation of appropriate IV antibiotic and duration of tx on discharge VERTIGO,VISION CHANGES /BPPPV -no evidence of CVA symptom has resolved , MRI of brain negative for CVA -CT head negative for acute changes -Antivert prn vertigo -pt mentions of having chronic vertigo , visual disturbance of left eye after last stoke -Neurology consult requested -appreciate input prior hx of BPPV symptom improved after Vinny maneuver done at [facility] ordered for PT to do Vinny at bedside Cont PRN Meclizine no further neurological testing or intervention needed ACUTE RENAL FAILURE on CKD stage IV -Crea 3.1 baseline 1.8 -due to vol depletion .dehydration in setting of UTI -hold Lasix -cont IVF hydration cr gradually improving ~3 -avoid other nephrotoxic agents as able -follow PRP -appreciate input form Nephrology HYPERKALEMIA: due to above K 5.2 not on any K supplement, no ACEI /ARB Kayexalate not ordered as pt is already dehydrated ordered for insulin and dextrose X 1 cont IVF repeat PRP in evening 2200 IDDM presented with hypoglycemia, BSG 65-75. States glucose at home is 200-500 -updated HB A1c 8.9 -pharmacy consult for glycemic management appreciate input pt's out pt diabetic regimen : Novolin N 55 U Q 12 plus Novolin R sliding scale due to presentation with hypoglycemia a more conservative regimen is being used Basal insulin Lantus to be given only when BSG > 180 insulin SSI HTN -BP elevated with no orthostatic change - BB changed form Lopressor to Coreg will increase the dose to 6.25 BID PRN IV Hydralazine for SBP > 160 -Lasix on hold for GARETH KUSHAL -continue CPAP H/O CVA -continue aspirin, statin GERD -continue PPI DVT PROPHYLAXIS: Sq heparin CODE STATUS:FULL CODE DISPOSITION PT/OT eval requested discharge home when medically stable will benefit form home health visiting nurse social service consulted for discharge planning Vital Signs: Date Time Temp Pulse Resp B/P Pulse Ox O2 Delivery O2 Flow Rate FiO2 06/14/16 14:49 36.7 69 20 171/71 97 Room Air 06/14/16 08:00 Room Air 06/14/16 06:52 36.9 76 18 193/71 92 Room Air 06/14/16 00:50 83 154/87 06/14/16 00:18 Room Air 06/13/16 23:50 78 180/63 06/13/16 22:40 36.9 88 16 182/76 96 Room Air 06/13/16 20:30 Room Air Lab Results: Results Past 24 Hours Test 06/13/16 19:58 06/14/16 05:50 06/14/16 07:29 06/14/16 11:24 Range/Units Bedside Glucose 161 200 174 70-90 mg/dl Sodium Level 144 136-145 mmol/L Potassium Level 4.7 3.5-5.1 mmol/L Chloride Level 115 98-107 mmol/L Carbon Dioxide Level 19 21-32 mmol/L Anion Gap 10.0 3-11 mmol/L Blood Urea Nitrogen 49 7-18 mg/dl Creatinine 3.00 0.60-1.20 mg/dl Est Creatinine Clear Calc Drug Dose 18.9 ml/min Estimated GFR () 17.9 Estimated GFR (Non- 15.4 BUN/Creatinine Ratio 16.3 10-20 Random Glucose 187 70-99 mg/dl Calcium Level 8.1 8.5-10.1 mg/dl Test 06/14/16 16:40 Range/Units Bedside Glucose 83 70-90 mg/dl
[2016-06-11] MEDS ORDERED: INSULIN GLARGINE SOLOSTAR 100 UNITS/ML 3 ML PEN SC SCH (21:00)
[2016-06-11] MEDS ORDERED: DEXTROSE 50% 50 ML SYR IV STA (21:05)
[2016-06-11] MEDS ORDERED: CARVEDILOL 3.125 MG TAB PO STA (21:09)
[2016-06-11] MEDS ORDERED: INSULIN HUMAN REGULAR PER UNIT 10 UNITS in SYRINGE 9.9 ML IV SCH (21:15)
[2016-06-11] MEDS: ERTAPENEM IV 500 MG in SODIUM CHLORIDE 0.9% 50 ML IV SCH (23:22)
[2016-06-12] VITALS (8 sets, daily range): BP systolic 120–192; BP diastolic 51–76; PULSE 65–79; TEMP 36.3–36.8; O2SAT 93–99
[2016-06-12 01:15] LABS: BUN/CREATININE RATIO 16.4 (10-20); CALCIUM 7.6 mg/dl (8.5-10.1); CREATININE 2.9 mg/dl (0.60-1.20); POTASSIUM 4.8 mmol/L (3.5-5.1)
[2016-06-12] MEDS ORDERED: INSULIN ASPART 100 UNITS/ML 3 ML PEN SC SCH (02:00)
[2016-06-12] MEDS: HEPARIN SOD 5000 UNIT/0.5 ML CARP SQ SCH ×3 (05:58→21:25)
[2016-06-12 07:03] LABS: BUN/CREATININE RATIO 15.6 (10-20); CALCIUM 7.9 mg/dl (8.5-10.1); CREATININE 2.8 mg/dl (0.60-1.20); POTASSIUM 5.1 mmol/L (3.5-5.1)
[2016-06-12] MEDS ORDERED: CARVEDILOL 3.125 MG TAB PO SCH (08:00)
[2016-06-12] MEDS: MAGNESIUM OXIDE 400 MG TAB PO SCH (08:10)
[2016-06-12] MEDS: DOCUSATE SODIUM 100 MG CAP PO SCH ×2 (08:10→21:13)
[2016-06-12] MEDS: CALCIUM 600MG + VIT D 400 IU TAB PO SCH (08:10)
[2016-06-12] MEDS: FERROUS SULFATE 325 MG TAB PO SCH ×2 (08:10→21:14)
[2016-06-12] MEDS: CHOLECALCIFEROL 1000 INTER.UNIT TAB PO SCH (08:10)
[2016-06-12] MEDS: PANTOprazole SOD 40 MG TAB PO SCH (08:10)
[2016-06-12] MEDS: CARVEDILOL 6.25 MG TAB PO SCH ×2 (08:10→21:14)
[2016-06-12] MEDS: AMLODIPINE BESYLATE 5 MG TAB PO SCH (08:11)
[2016-06-12] MEDS: HydrALAZINE HCL 20 MG/ML VIAL IV. PRN ×2 (08:11→16:42)
[2016-06-12] MEDS: ASPIRIN 81 MG ECTAB PO SCH (08:11)
[2016-06-12] MEDS: NYSTATIN POWDER 15GM BTL EXT SCH ×3 (08:17→21:08)
[2016-06-12] MEDS: INSULIN ASPART 100 UNITS/ML 3 ML PEN SC SCH ×4 (08:37→21:24)
[2016-06-12] MEDS: INSULIN GLARGINE SOLOSTAR 100 UNITS/ML 3 ML PEN SC SCH ×2 (08:38→21:26)
--- NOTE | 2016-06-12 09:39 | Medical Consult ---
Consultation Date of Consultation: June 12, 2016. Attending Physician: Syeda Onofre M.D. Reason for Consultation: Multi-drug resistant UTI History of Present Illness Patient is a 65-year-old obese female with diabetes, CKD, and history of CVA who presents to the emergency department with complaints of dizziness. The patient had been feeling dizzy all day, and overall had been feeling poorly. She states that she was not having any nausea, vomiting, diarrhea, urinary symptoms, or fever at home that she knew of. Since admission, the patient did have a urine culture which is growing ESBL producing E coli sensitive to carbapenems, aminoglycosides, and Zosyn, but is otherwise resistance. Her white blood cell count on admission was 11.34. Her creatinine was elevated at 3.10. She did have a CT of the head which showed no hemorrhage, mass effect, or evidence of acute ischemia. Chest x-ray showed no acute cardiopulmonary disease. The patient did also have an MRI her brain due to dizziness and visual changes which also showed no acute intracranial abnormality. Patient states that overall since admission she is feeling slightly improved. She is currently on IV ertapenem. Past Medical/Surgical History Medical Problems: (1) Acute kidney injury Status: Acute (2) Acute renal failure Status: Acute (3) Altered mental status Status: Acute (4) Dizziness Status: Acute (5) Hypercalcemia Status: Acute (6) Hyperglycemia Status: Acute (7) UTI (urinary tract infection) Status: Acute Medical Problems: (1) Anxiety (2) CAD (coronary artery disease) (3) CKD (chronic kidney disease) stage 3, GFR 30-59 ml/min (4) Depression (5) Diabetes (6) GERD (gastroesophageal reflux disease) (7) Hyperlipidemia (8) Hypertension (9) Interstitial lung disease (10) KUSHAL (obstructive sleep apnea) Surgical Problems: (1) Hx of shoulder surgery (2) Hx of total knee replacement Family History Diabetes mellitus FHx: gallbladder disease Hypertension Kidney disease Noncontributory Social History Smoking Status: Never Smoker Alcohol Use: none Drug Use: none Marital Status: Housing Status: lives with family Allergies Coded Allergies: Codeine (Verified Allergy, Intermediate, hives, 09/23/15) Morphine (Verified Allergy, Mild, 09/23/15) Pioglitazone (Verified Adverse Reaction, Intermediate, Rash/Fluid retention, 09/23/15) RETAINS FLUID Home Medications Reported Home Medications Medications Dose Route/Sig Max Daily Dose Days Date Category Dose Instructions Novolin R Relion (Insulin Regular (Human)) 100 Unit/Ml Inj SQ ACHS 06/09/16 Reported PLUS SLIDING SCALE Tylenol (Acetaminophen) 325 Mg Tab 650 Mg PO Q6 PRN 06/09/16 Reported Docusate Sodium 100 Mg Cap 1 Cap PO BID 7 06/09/16 Reported Novolin N Relion (Insulin Isophane (Human)) 100 Unit/Ml Inj 55 Units SC Q12 06/09/16 Reported PLUS SLIDING SCALE Imitrex (Sumatriptan Succinate) 25 Mg Tab 25 Mg PO PRN UD 06/09/16 Reported Protonix (Pantoprazole Sodium) 20 Mg Tab 20 Mg PO DAILY 06/09/16 Reported Simvastatin 10 Mg Tab 10 Mg PO DAILY 06/09/16 Reported Meclizine Hcl 25 Mg Tab 25 Mg PO TID PRN 06/09/16 Reported Lopressor (Metoprolol Tartrate) 25 Mg Tab 12.5 Mg PO BID 06/09/16 Reported Furosemide 20 Mg Tab 20 Mg PO DAILY 06/09/16 Reported Ferrous Sulfate 325 Mg Tab 325 Mg PO BID 06/09/16 Reported Amlodipine Besylate 10 Mg Tab 10 Mg PO DAILY 06/09/16 Reported Nystatin (Nystatin (Topical)) 100,000 Unit/Gm Pow 1 Appln TOP TID 06/09/16 Reported Aspirin Ec (Aspirin) 81 Mg Tab 81 Mg PO DAILY 05/10/15 Reported Os-George 500 Plus D (Calcium/Vitamin D) Tab 1 Tab PO DAILY 05/10/15 Reported Vitamin D3 (Cholecalciferol) 5,000 Unit Tab 1 Tab PO DAILY 05/10/15 Reported Mag-Ox (Magnesium Oxide) 400 Mg Tab 400 Mg PO DAILY 05/10/15 Reported Current Inpatient Medications Current Inpatient Medications Medications (Trade) Dose Ordered Sig/Aleks Route Start Time Stop Time Status Last Admin Dose Admin Heparin Sodium (Porcine) (Heparin Sq 5000 Unit/0.5ml) 5,000 unit Q8 SQ 06/10/16 06:00 07/10/16 05:59 06/12/16 05:58 5,000 UNIT Acetaminophen (Tylenol Tab) 650 mg Q4H PRN PO 06/09/16 21:30 07/09/16 21:29 06/11/16 20:35 650 MG Ondansetron HCl (Zofran Inj) 4 mg Q6H PRN IV 06/09/16 21:30 07/09/16 21:29 Miscellaneous Information 1 ea 1 ea DAILY PRN N/A 06/09/16 22:33 07/09/16 22:32 Sodium Chloride (Nss 1000ml) 1,000 ml @ 100 mls/hr Q10H IV 06/09/16 23:15 07/09/16 23:14 06/11/16 23:22 100 MLS/HR Aspirin (Ecotrin Tab) 81 mg DAILY PO 06/10/16 09:00 07/10/16 08:59 06/12/16 08:11 81 MG Calcium/Vitamin D (Caltrate Plus Tab) 1 tab DAILY PO 06/10/16 09:00 07/10/16 08:59 06/12/16 08:10 1 TAB Docusate Sodium (coLACE CAP) 100 mg BID PO 06/10/16 09:00 07/10/16 08:59 06/12/16 08:10 100 MG Magnesium Oxide (Mag-Ox Tab) 400 mg DAILY PO 06/10/16 09:00 07/10/16 08:59 06/12/16 08:10 400 MG Meclizine HCl (Antivert Tab) 25 mg TID PRN PO 06/09/16 21:45 07/09/16 21:44 Nystatin (Mycostatin Powder) 1 appln TID EXT 06/10/16 09:00 07/10/16 08:59 06/12/16 08:17 1 APPLN Simvastatin (Zocor Tab) 10 mg PM PO 06/10/16 21:00 07/10/16 20:59 06/11/16 20:35 10 MG Amlodipine Besylate (Norvasc Tab) 10 mg DAILY PO 06/10/16 09:00 07/10/16 08:59 06/12/16 08:11 10 MG Cholecalciferol (Vitamin D Tab) 5,000 inter.unit DAILY PO 06/10/16 09:00 07/10/16 08:59 06/12/16 08:10 5,000 INTER.UNIT Ferrous Sulfate (Feosol Tab) 325 mg BID PO 06/10/16 09:00 07/10/16 08:59 06/12/16 08:10 325 MG Pantoprazole Sodium (Protonix Tab) 40 mg DAILY PO 06/10/16 09:00 07/10/16 08:59 06/12/16 08:10 40 MG Insulin Aspart (novoLOG ASPART) SLIDING SCALE If C... ACHS SC 06/10/16 07:00 07/10/16 06:59 06/12/16 08:37 10 UNITS Glucose (Glucose 40% Gel) 15-30 GRAMS 15 GRAMS... UD PRN PO 06/09/16 21:45 07/09/16 21:44 Glucose (Glucose Chew Tab) 4-8 Tablets 4 Tabl... UD PRN PO 06/09/16 21:45 07/09/16 21:44 Dextrose (Dextrose 50% 50ML Syringe) 25-50ML OF 50% DW IV FOR... UD PRN IV 06/09/16 21:45 07/09/16 21:44 Glucagon (Glucagon Inj) 1 mg UD PRN SQ 06/09/16 21:45 07/09/16 21:44 Miscellaneous Information 1 ea 1 ea UD PRN N/A 06/09/16 22:47 07/09/16 22:46 Ertapenem/Sodium Chloride (Invanz Iv/Nss 50ml) 55 ml @ 110 mls/hr DAILY@2300 IV 06/09/16 23:00 06/19/16 22:59 06/11/16 23:22 110 MLS/HR Insulin Aspart (novoLOG ASPART) SLIDING SCALE If C... 0200 SC 06/12/16 02:00 07/12/16 01:59 Hydralazine HCl (HydrALAZINE INJ) 10 mg Q8 PRN IV. 06/11/16 21:00 07/11/16 20:59 06/12/16 08:11 10 MG Carvedilol (Coreg Tab) 6.25 mg BID PO 06/12/16 08:00 07/12/16 07:59 06/12/16 08:10 6.25 MG Insulin Glargine (Lantus Solostar Pen) 10 unit BID SC 06/12/16 08:00 07/12/16 07:59 06/12/16 08:38 10 UNIT Review of Systems Constitutional: + fatigue, No chills, No fever, No sweats Eyes: No worsening of vision ENT: No hearing loss Respiratory: + dyspnea on exertion, + shortness of breath, No cough Cardiovascular: No chest pain Abdomen: + nausea (in the mornings), No diarrhea (loose stools for multiple weeks), No pain, No vomiting Musculoskeletal: No joint pain, No swelling Genitourinary - Female: No dysuria, No urinary frequency Neurologic: + problem reported (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) Integumentary: No itch, No rash Physical Exam Date Time Temp Pulse Resp B/P Pulse Ox O2 Delivery O2 Flow Rate FiO2 06/12/16 09:22 75 120/70 06/12/16 07:25 36.7 75 18 192/71 93 Room Air 06/12/16 00:34 36.3 65 19 161/76 93 Room Air 06/12/16 00:00 96 Room Air 06/11/16 21:28 66 185/84 06/11/16 20:00 96 Room Air 06/11/16 18:15 36.8 86 18 180/76 96 Room Air 06/11/16 17:31 36.4 58 18 95 06/11/16 16:00 95 Room Air 06/11/16 15:12 36.4 58 18 174/79 99 Room Air 06/11/16 12:00 95 Room Air 06/11/16 11:55 36.5 56 18 171/76 96 Room Air General Appearance: no apparent distress, + obese Head: normocephalic, atraumatic Eyes: normal inspection, sclerae normal ENT: hearing grossly normal Neck: supple, trachea midline Respiratory/Chest: chest non-tender, lungs clear, normal breath sounds, no respiratory distress, no accessory muscle use Cardiovascular: regular rate, rhythm, no murmur Abdomen/GI: normal bowel sounds, + tenderness (epigastric- mild), + distended Extremities/Musculoskelatal: normal inspection, + pertinent finding (trace bilateral LE edema) Neurologic/Psych: alert, normal mood/affect Skin: normal color, warm/dry, no rash Laboratory Results MRI OF THE BRAIN WITHOUT IV CONTRAST CLINICAL HISTORY: Dizziness. Visual changes. COMPARISON STUDY: CT of the brain dated 06/09/2016. MRI of the brain dated 07/17/2015. TECHNIQUE: MRI of the brain was performed utilizing various T1 and T2-weighted sequences in the axial, sagittal, and coronal planes. IV contrast was not administered for this examination. The examination is modestly degraded by motion artifact. FINDINGS: Brain parenchyma: There are age-related involutional changes noting mild to moderate subcortical and periventricular microangiopathic disease. There is no hemorrhage or mass effect. Chronic lacunar infarcts are identified in the left cerebellar hemisphere and the drea. There is no restricted diffusion to suggest acute ischemia. Dang-white matter differentiation is preserved. No extra-axial fluid collection is seen. The cerebellar tonsils are normal in configuration. Ventricles, sulci, and cisterns: Prominent secondary to involutional change. Pituitary and sella: Partially empty sella is incidentally noted. Intracranial vasculature: Normal flow voids are maintained at the skull base. Orbits: The bony orbits are grossly intact. Orbital contents are normal in appearance noting bilateral ocular lens implants. Sinuses and mastoids: A retention cyst is noted in the left maxillary antrum. There is mild mucosal thickening and fluid within the left sphenoid sinus. The remaining paranasal sinuses and the mastoid air cells are clear. Calvarium: Unremarkable. Cervical cord: Partially visualized cervical spinal cord is normal in morphology and signal intensity. IMPRESSION: No acute intracranial abnormality. RUN DATE: 06/11/16 [facility] LAB PAGE 1 RUN TIME: 929 Specimen Inquiry PATIENT: EDDY ARANGO LOC: [facility] # : [id number] AGE/SX: 65/F ROOM: [address] : 06/09/[address]: Syeda Onofre M.D. : 1950 BED: 2 DIS : STATUS: ADM IN TLOC: SPEC #: [id number] MARK: 06/09/16 STATUS: COMP REQ #: [id number] RECD: 06/09/[address]: Abe Palencia M.D. SOURCE: URINE CATH ENTR: 06/09/16-[address]: Yanet Golden M.D. [facility]: ORDERED: CULTURE UR CATH Procedure Result Verified Site URINE CULTURE Final 06/11/16-929 Organism 1 ESCHERICHIA COLI COLONY COUNT >100,000 CFU/ml SENS SENSITIVITY TO FOLLOW SENSITIVITY RESULT INDICATES AN ORGANISM WITH AN EXTENDED SPECTRUM BETA LACTAMASE.THIS IS CONSIDERED A MULTIDRUG RESISTANT ORGANISM.PHONED TO TEMI KRAUS ON 06/11/16 AT 0856 BY Liliana Blancas. Results were verbalized back to ISSA. RESULTS WERE ALSO CALLED TO [facility] INFECTION CONTROL BRIANA HAMILTON ON 06/11/16 BY ISSA. 1. ESCHERICHIA COLI Target Route Dose RX AB Cost M.I.C. IQ ------ ----- ------ -- ------ -------- - ------ TRIMET/SULFA R >2/38 AMPICILLIN R >16 AMPICILLIN/SUL R >16/8 CEFAZOLIN R >16 CEFOTAXIME R >32 CEFTRIAXONE R >32 CEFEPIME R >16 CEFUROXIME R >16 IMIPENEM S <=1 GENTAMICIN S <=4 TOBRAMYCIN S <=4 AMIKACIN S <=16 CIPROFLOXACIN R >2 LEVOFLOXACIN R >4 ERTAPENEM S <=1 NITROFURANTOIN S <=32 PIP/TAZO S <=16 S = SENSITIVE I = INTERMEDIATE R = RESISTANT Item Value Date Time Urine Culture - Final Complete 06/09/160 Urine,Catheterized Escherichia Coli Last 24 Hours Test 06/11/16 10:13 06/11/16 11:27 06/11/16 16:03 06/11/16 20:26 Potassium Level 5.2 mmol/L Bedside Glucose 176 mg/dl 117 mg/dl 84 mg/dl Test 06/11/16 21:25 06/12/16 00:31 06/12/16 01:49 06/12/16 05:59 Bedside Glucose 109 mg/dl 135 mg/dl Sodium Level 144 mmol/L 143 mmol/L Potassium Level 4.8 mmol/L 5.1 mmol/L Chloride Level 115 mmol/L 116 mmol/L Carbon Dioxide Level 23 mmol/L 19 mmol/L Anion Gap 6.0 mmol/L 8.0 mmol/L Blood Urea Nitrogen 48 mg/dl 44 mg/dl Creatinine 2.90 mg/dl 2.80 mg/dl Est Creatinine Clear Calc Drug Dose 19.6 ml/min 20.3 ml/min Estimated GFR () 18.6 19.4 Estimated GFR (Non- 16.1 16.8 BUN/Creatinine Ratio 16.4 15.6 Random Glucose 135 mg/dl 152 mg/dl Calcium Level 7.6 mg/dl 7.9 mg/dl Assessment & Plan Patient with ESBL producing E. Coli UTI and GARETH. She does have history of this same organism in urine last year. Recommend Renal U/S to evaluate for hydronephrosis/renal stones. With GARETH, nausea, and complaint of right sided flank pain (semi-chronic), question whether this patient could also have pyelonephritis. Recommend continued treatment on IV Ertapenem. She likely will need at least 7 days of IV therapy, but pending renal U/S may need up to 14. We will follow. PROVIDER ADDENDUM: Patient examined and reviewed with Ms. Wilson. Agree with above assessment.
[2016-06-12] MEDS: SODIUM CHLORIDE 0.9% 1000ML 1,000 ML IV SCH ×2 (11:19→21:08)
--- NOTE | 2016-06-12 11:40 | Pharmacy Progress Note ---
Glycemic Control: Progress Nt Date of Service June 12, 2016. Scope Glycemic Pharmacist consulted by Carola Walsh PA-C on 06/09/16 for glycemic control and to write orders per [facility] inpatient glycemic control protocol. Objective Accuchecks BSG (last 24hrs): Test 06/11/16 16:03 06/11/16 20:26 06/11/16 21:25 06/12/16 00:31 Bedside Glucose 117 mg/dl (70-90) 84 mg/dl (70-90) 109 mg/dl (70-90) Random Glucose 135 mg/dl (70-99) Test 06/12/16 01:49 06/12/16 05:59 06/12/16 07:39 Bedside Glucose 135 mg/dl (70-90) 161 mg/dl (70-90) Random Glucose 152 mg/dl (70-99) Laboratory Data (last 24hrs) Test 06/12/16 00:31 06/12/16 05:59 Anion Gap 6.0 mmol/L 8.0 mmol/L BUN/Creatinine Ratio 16.4 15.6 Blood Urea Nitrogen 48 mg/dl 44 mg/dl Creatinine 2.90 mg/dl 2.80 mg/dl Potassium Level 4.8 mmol/L 5.1 mmol/L Sodium Level 144 mmol/L 143 mmol/L HbA1c: Test 06/10/16 06:51 Hemoglobin A1c 8.9 % (4.5-5.6) H Recent Pertinent Medications Outpatient Anti-diabetic Regimen: * Novolin N 55 units q12 plus Novolin R sliding scale Risk Factors for Insulin Resistance: * Infection: UTI currently on Invanz * Diet: type 2 diet Assessment & Plan ASSESSMENT: * 65 y/o diabetic F who is known to the glycemic service from prior admissions, currently admitted with a UTI * Previous inpatient data indicates with lower blood sugars the patient eventually required Lantus but at reduced doses * Patient received a total of 46 units of insulin over the past 24 hours * 10 units of basal * 36 units of bolus * Fasting BSG this AM 161 mg/dL, Scr remains elevated * Plan will be to remain conservative with basal insulin and initiate small dose of scheduled Lantus BID * Lunch BSG elevated >200 mg/dL--> tighten CF/CR * Patient may be trending up but it is hard to tell what her basal needs are right now * Add 00,04 checks incase scheduled Lantus not enough * ADA & AACE recommend a goal blood sugar range 140-180 mg/dl for the majority of critically ill & non-critically ill patients. However, more stringent targets may be selected in individual cases. Will utilize more stringent goal of 100-140mg/dl based on patient age & comorbidities. Additionally, tighter glycemic control is warranted to facilitate wound/infection healing. PLAN FOR INPATIENT GLYCEMIC CONTROL: * Basal insulin with Lantus 10 units BID * Hold for BSG <100 mg/dL * Correctional Insulin with NOVOLOG per scale ACHS * Goal Range: Low 100 mg/dL - High 140 mg/dL * Correction Factor: 10 mg/dL/unit * Nutritional / Prandial insulin per carb ratio of 1 unit per 4 grams CHO consumed * Please note that the plan above was derived based on current level of insulin resistance and hospital stress. These recommendations are appropriate for inpatient admission only. Plan of care upon discharge will need to be reassessed to avoid potential outpatient hypo/hyperglycemia. Thank you.
--- NOTE | 2016-06-12 15:13 | Neurology Progress Notes ---
Neurology Progress Note Date of Service June 12, 2016. Brittany Bunn is a 65 year old female with PMH - IDDM, CKD stage IV, KUSHAL, HLD, HTN and history of CVA and vertigo presents to the ED complaining of dizziness x 1 day. She states it is worse with movement and describes it as "just not feeling right" She states that she was going to just wait it out but when she went to the bathroom she was too off balance to walk down the ac. She states that she has some rhinorrhea that she attributes to allergies. She also reports her left ear feels clogged but that this ear was effect by her stroke. She took antivert at home with minimal relief. She denies fevers, chills, chest pain, SOB , nausea, vomiting, diarrhea, dysuria, calf pain and edema. She is on insulin for diabetes, BSG is usually between 200-500, She had a negative CT head is negative, WBC count is mildly elevated at 11K, UA shows infection. Crea is 3.1 from baseline of 1.8. BSG is 64. She is currently receiving antibiotics and states the vertigo has calmed down. She is sleep when coming into room. She has no complaints at this time. denies CP, SOB, abdominal pain, one sided weakness, numbness tingling, N, V. She does report some nausea with the vertigo but no vomiting. She state the last time she had this she went to and they did maneuvers with her head that stopped the vertigo. She is currently walking to the bathroom without difficulty. She state she is still having some vertigo but the Kamilah maneuver PT did earlier did help. She is currently having some double vision again but it comes and goes Objective Date Time Temp Pulse Resp B/P Pulse Ox O2 Delivery O2 Flow Rate FiO2 06/12/16 09:22 75 120/70 06/12/16 08:00 Room Air 06/12/16 07:25 36.7 75 18 192/71 93 Room Air 06/12/16 00:34 36.3 65 19 161/76 93 Room Air 06/12/16 00:00 96 Room Air 06/11/16 21:28 66 185/84 06/11/16 20:00 96 Room Air 06/11/16 18:15 36.8 86 18 180/76 96 Room Air 06/11/16 17:31 36.4 58 18 95 06/11/16 16:00 95 Room Air 06/11/16 15:12 36.4 58 18 174/79 99 Room Air Last 24 Hours Test 06/11/16 16:03 06/11/16 20:26 06/11/16 21:25 06/12/16 00:31 Bedside Glucose 117 mg/dl 84 mg/dl 109 mg/dl Sodium Level 144 mmol/L Potassium Level 4.8 mmol/L Chloride Level 115 mmol/L Carbon Dioxide Level 23 mmol/L Anion Gap 6.0 mmol/L Blood Urea Nitrogen 48 mg/dl Creatinine 2.90 mg/dl Est Creatinine Clear Calc Drug Dose 19.6 ml/min Estimated GFR () 18.6 Estimated GFR (Non- 16.1 BUN/Creatinine Ratio 16.4 Random Glucose 135 mg/dl Calcium Level 7.6 mg/dl Test 06/12/16 01:49 06/12/16 05:59 06/12/16 07:39 Bedside Glucose 135 mg/dl 161 mg/dl Sodium Level 143 mmol/L Potassium Level 5.1 mmol/L Chloride Level 116 mmol/L Carbon Dioxide Level 19 mmol/L Anion Gap 8.0 mmol/L Blood Urea Nitrogen 44 mg/dl Creatinine 2.80 mg/dl Est Creatinine Clear Calc Drug Dose 20.3 ml/min Estimated GFR () 19.4 Estimated GFR (Non- 16.8 BUN/Creatinine Ratio 15.6 Random Glucose 152 mg/dl Calcium Level 7.9 mg/dl Imaging: no new imaging Exam: Physical Exam: Constitutional: appearance nourished, healthy and obese Ears, Nose, Mouth and Throat: mucous membranes moist, no injection and skin normal, eyes normal Cardiovascular: normal S-1 and S-2 and regular rate and rhythm Respiratory: clear to auscultation (CTA) and no rales, rhonchi or wheeze Skin: no stigmata of neurocutaneous disease noted and normal and intact Eyes: extraocular muscles intact (EOMI) and pupils equal, round and reactive to light (PERRL) NEUROLOGIC EXAMINATION: Mental status: Alert and interactive Oriented to full date and location Oriented to person Speech fluent with no evidence of aphasia Cranial Nerves facial symmetry Gait/Stance: Posture walking to bathroom without difficulty Current Inpatient Medications Medications (Trade) Dose Ordered Sig/Aleks Route Start Time Stop Time Status Last Admin Dose Admin Heparin Sodium (Porcine) (Heparin Sq 5000 Unit/0.5ml) 5,000 unit Q8 SQ 06/10/16 06:00 07/10/16 05:59 06/12/16 14:13 5,000 UNIT Acetaminophen (Tylenol Tab) 650 mg Q4H PRN PO 06/09/16 21:30 07/09/16 21:29 06/11/16 20:35 650 MG Ondansetron HCl (Zofran Inj) 4 mg Q6H PRN IV 06/09/16 21:30 07/09/16 21:29 Miscellaneous Information 1 ea 1 ea DAILY PRN N/A 06/09/16 22:33 07/09/16 22:32 Sodium Chloride (Nss 1000ml) 1,000 ml @ 100 mls/hr Q10H IV 06/09/16 23:15 07/09/16 23:14 06/12/16 11:19 100 MLS/HR Aspirin (Ecotrin Tab) 81 mg DAILY PO 06/10/16 09:00 07/10/16 08:59 06/12/16 08:11 81 MG Calcium/Vitamin D (Caltrate Plus Tab) 1 tab DAILY PO 06/10/16 09:00 07/10/16 08:59 06/12/16 08:10 1 TAB Docusate Sodium (coLACE CAP) 100 mg BID PO 06/10/16 09:00 07/10/16 08:59 06/12/16 08:10 100 MG Magnesium Oxide (Mag-Ox Tab) 400 mg DAILY PO 06/10/16 09:00 07/10/16 08:59 06/12/16 08:10 400 MG Meclizine HCl (Antivert Tab) 25 mg TID PRN PO 06/09/16 21:45 07/09/16 21:44 Nystatin (Mycostatin Powder) 1 appln TID EXT 06/10/16 09:00 07/10/16 08:59 06/12/16 14:14 1 APPLN Simvastatin (Zocor Tab) 10 mg PM PO 06/10/16 21:00 07/10/16 20:59 06/11/16 20:35 10 MG Amlodipine Besylate (Norvasc Tab) 10 mg DAILY PO 06/10/16 09:00 07/10/16 08:59 06/12/16 08:11 10 MG Cholecalciferol (Vitamin D Tab) 5,000 inter.unit DAILY PO 06/10/16 09:00 07/10/16 08:59 06/12/16 08:10 5,000 INTER.UNIT Ferrous Sulfate (Feosol Tab) 325 mg BID PO 06/10/16 09:00 07/10/16 08:59 06/12/16 08:10 325 MG Pantoprazole Sodium (Protonix Tab) 40 mg DAILY PO 06/10/16 09:00 07/10/16 08:59 06/12/16 08:10 40 MG Insulin Aspart (novoLOG ASPART) SLIDING SCALE If C... ACHS SC 06/10/16 07:00 07/10/16 06:59 06/12/16 12:27 18 UNITS Glucose (Glucose 40% Gel) 15-30 GRAMS 15 GRAMS... UD PRN PO 06/09/16 21:45 07/09/16 21:44 Glucose (Glucose Chew Tab) 4-8 Tablets 4 Tabl... UD PRN PO 06/09/16 21:45 07/09/16 21:44 Dextrose (Dextrose 50% 50ML Syringe) 25-50ML OF 50% DW IV FOR... UD PRN IV 06/09/16 21:45 07/09/16 21:44 Glucagon (Glucagon Inj) 1 mg UD PRN SQ 06/09/16 21:45 07/09/16 21:44 Miscellaneous Information 1 ea 1 ea UD PRN N/A 06/09/16 22:47 07/09/16 22:46 Ertapenem/Sodium Chloride (Invanz Iv/Nss 50ml) 55 ml @ 110 mls/hr DAILY@2300 IV 06/09/16 23:00 06/19/16 22:59 06/11/16 23:22 110 MLS/HR Hydralazine HCl (HydrALAZINE INJ) 10 mg Q8 PRN IV. 06/11/16 21:00 07/11/16 20:59 06/12/16 08:11 10 MG Carvedilol (Coreg Tab) 6.25 mg BID PO 06/12/16 08:00 07/12/16 07:59 06/12/16 08:10 6.25 MG Insulin Glargine (Lantus Solostar Pen) 10 unit BID SC 06/12/16 08:00 07/12/16 07:59 06/12/16 08:38 10 UNIT Insulin Aspart (novoLOG ASPART) SLIDING SCALE If C... 0000,0400 SC 06/13/16 00:00 07/13/16 00:00 Impression 65 year old female dizziness with a history of vertigo -presents with UTI , uncontrolled DM Plan 1. patient was helped with Kamilah maneuvers in the past ordered PT to try bedside - repeat did improve symptoms 2. UTI and kidney function may be contributing to the vertigo symptoms 3. antivert prn 4. MRI with no new CVA old infarcts noted 5. orthostatic blood pressures done with negative for orthostasis 6. PT/OT for evaluation of gait and use of walker to minimize falls 7. carotid doppler with no significant stenosis 8. follow up with ophthalmology as out patient for transit double vision I have seen and discussed above patient with Dr Vincenzo Izaguirre, neurology reviewed and patient interviewed and examined vertigo a bit improved may need anothe attempt at kamilah if symptoms remain the diplopia is transient oblique in nature and has been attributed to her "sugar " by her radiocommunications technician and retinal fitter type bar and segment in the past - mechanism unclear and could be retinal or crystalline lens in origin as she has never established whether the diplopia is monocular or binocular I have suggested she try to establish this by covering one and then the other eye during the events. If monocular then could easily be of retinal origin or lens In the future if this continues may need antiachr receptor antibody titers but will hold off for now Neurolpogy will follow up tomorrow Vincenzo Izaguirre MD
--- NOTE | 2016-06-12 17:55 | Progress Note ---
Internal Med Progress Note Date of Service: June 12, 2016. Provider Documentation: SUBJECTIVE: feels fine had diplopia earlier ,now better No dizzy spell at present , mentions had episode of dizzy spell while trying to go to bathroom at afternoon no complain of SOB no fever or chills OBJECTIVE: Vital Signs-as noted below Exam: General-no sign of distress Eyes-sclera non icteric Lungs-CTA Heart-regular S1/S2 Abdomen-soft, non tender Extremities-no lower ext edema , no rash or deformity Neuro-AAO x3, no focal deficit Lab data as noted below. ASSESSMENT & PLAN: 65 year old female presents to the ED complaining of dizziness, vision changes. URINARY TRACT INFECTION /ESBL E.COLI -WBC count 11K, afebrile, VSS -no evidence of sepsis -Previous urine culture with multidrug resistant e.coli -on admission empirically treated with ertapenem, pharmacy consulted for dosing d/t poor crea clearance -urine culture shows E Coli , multidrug resistant , sensitive to Invanz -on IV Invanz day 3 4 -ID consult appreciated Recommend Renal U/S to evaluate for hydronephrosis/renal stones. . Recommend continued treatment on IV Ertapenem. She likely will need at least 7 days of IV therapy, but pending renal U/S may need up to 14. -ordered for PICC line -pt lives locally -willing to come to [facility] for daily IV antibiotic tx VERTIGO,VISION CHANGES /BPPPV -no evidence of CVA , MRI of brain negative for CVA -having intermittent symptom -CT head negative for acute changes -Antivert ordered prn for vertigo -pt mentions of having chronic vertigo , visual disturbance of left eye after last stoke -Neurology consult requested -appreciate input prior hx of BPPV symptom improved after [facility] maneuver [facility] ordered for PT to do Vinny at bedside Cont PRN Meclizine no further neurological testing or intervention needed ACUTE RENAL FAILURE on CKD stage IV -Crea 3.1 baseline 1.8 -due to vol depletion .dehydration in setting of UTI -hold Lasix cr gradually improving ~3 -> 2.8 IV D/rosa -avoid other nephrotoxic agents as able -follow PRP -appreciate input form Nephrology HYPERKALEMIA: due to above K improved not on any K supplement, no ACEI /ARB low k diet monitor PRP IDDM presented with hypoglycemia, BSG 65-75. States glucose at home is 200-500 -updated HB A1c 8.9 -pharmacy consult for glycemic management appreciate input pt's out pt diabetic regimen : Novolin N 55 U Q 12 plus Novolin R sliding scale due to presentation with hypoglycemia more conservative regimen is being used Basal insulin Lantus to be given only when BSG > 180 insulin SSI HTN -BP persistently elevated - BB changed form Lopressor to Coreg will increase the dose to 6.25 BID IVF D/rosa Hydralazine 25 mg PO BID ordered PRN IV Hydralazine for SBP > 160 -Lasix on hold for GARETH KUSHAL -continue CPAP at night H/O CVA -continue aspirin, statin GERD -continue PPI DVT PROPHYLAXIS: Sq heparin CODE STATUS:FULL CODE DISPOSITION PT/OT eval requested possible discharge home tomorrow if medically stable /BP remains controlled will benefit form home health visiting nurse will need IV Abx as out pt -home vs [facility] PICC Line ordered social service consulted for discharge planning Vital Signs: Date Time Temp Pulse Resp B/P Pulse Ox O2 Delivery O2 Flow Rate FiO2 06/12/16 18:49 77 178/70 06/12/16 16:10 99 Room Air 06/12/16 15:07 36.4 72 18 186/51 99 Room Air 06/12/16 09:22 75 120/70 06/12/16 08:00 Room Air 06/12/16 07:25 36.7 75 18 192/71 93 Room Air 06/12/16 00:34 36.3 65 19 161/76 93 Room Air 06/12/16 00:00 96 Room Air Lab Results: Results Past 24 Hours Test 06/12/16 00:31 06/12/16 01:49 06/12/16 05:59 06/12/16 07:39 Range/Units Sodium Level 144 143 136-145 mmol/L Potassium Level 4.8 5.1 3.5-5.1 mmol/L Chloride Level 115 116 98-107 mmol/L Carbon Dioxide Level 23 19 21-32 mmol/L Anion Gap 6.0 8.0 3-11 mmol/L Blood Urea Nitrogen 48 44 7-18 mg/dl Creatinine 2.90 2.80 0.60-1.20 mg/dl Est Creatinine Clear Calc Drug Dose 19.6 20.3 ml/min Estimated GFR () 18.6 19.4 Estimated GFR (Non- 16.1 16.8 BUN/Creatinine Ratio 16.4 15.6 10-20 Random Glucose 135 152 70-99 mg/dl Calcium Level 7.6 7.9 8.5-10.1 mg/dl Bedside Glucose 135 161 70-90 mg/dl Test 06/12/16 11:21 06/12/16 16:25 06/12/16 20:23 Range/Units Bedside Glucose 236 223 226 70-90 mg/dl
[2016-06-12] MEDS: ERTAPENEM IV 500 MG in SODIUM CHLORIDE 0.9% 50 ML IV SCH (21:08)
[2016-06-12] MEDS: SIMVASTATIN 10 MG TAB PO SCH (21:13)
[2016-06-12] MEDS ORDERED: NURSING VERBAL MED ORDER ONE (21:30)
[2016-06-12] MEDS ORDERED: FUROSEMIDE INJ 40 MG in SYRINGE 0 ML IV STA (22:04)
[2016-06-12] MEDS ORDERED: ZOLPIDEM TARTRATE 5 MG TAB PO PRN (22:15)
[2016-06-13] MEDS: INSULIN ASPART 100 UNITS/ML 3 ML PEN SC SCH ×6 (04:00→22:36)
[2016-06-13] MEDS: HEPARIN SOD 5000 UNIT/0.5 ML CARP SQ SCH ×3 (06:12→22:37)
[2016-06-13 07:13] VITALS: BP 193/77; PULSE 73; TEMP 36.8; O2SAT 96
[2016-06-13 07:30] LABS: BUN/CREATININE RATIO 16.1 (10-20); CALCIUM 8.5 mg/dl (8.5-10.1); CREATININE 2.8 mg/dl (0.60-1.20); POTASSIUM 5.2 mmol/L (3.5-5.1)
--- NOTE | 2016-06-13 07:46 | DIAGNOSTIC IMAGING REPORT ---
CHEST ONE VIEW PORTABLE CLINICAL HISTORY: Congestive heart failure. COMPARISON STUDY: Chest radiograph June 09, 2016. FINDINGS: A right shoulder arthroplasty is incidentally noted. Moderate cardiomegaly is unchanged. There is no pneumothorax. There is a possible small right pleural effusion. There is no evidence of pulmonary edema. Minimal bibasilar opacities are present. IMPRESSION: 1. No evidence of pulmonary edema. 2. Minimal bibasilar opacities. 3. Possible small right pleural effusion. Electronically signed by: Raghu Beasley M.D. 06/13/2016 7:43 AM Dictated Date/Time: 06/13/2016 7:41 AM
--- NOTE | 2016-06-13 08:03 | DIAGNOSTIC IMAGING REPORT ---
RENAL ULTRASOUND CLINICAL HISTORY: Acute renal failure. Urinary tract infection. Evaluate for pyelonephritis. COMPARISON STUDY: Renal ultrasound November 28, 2014. TECHNIQUE: Sonography of the kidneys and the urinary bladder was performed. FINDINGS: The left kidney is partially obscured on this exam. There is no hydronephrosis. The right kidney measures 12.8 x 5.2 x 5.7 cm and the left measures 10.9 x 5.2 x 5.1 cm. There is mild to moderate renal cortical thinning. Both ureteral jets are identified. IMPRESSION: 1. No hydronephrosis. 2. Mild to moderate renal cortical thinning. 3. Left kidney partially obscured on this exam due to suboptimal penetration. No renal fluid collection identified by sonography. Pyelonephritis is difficult to assess for by sonography. Electronically signed by: Raghu Beasley M.D. 06/13/2016 8:02 AM Dictated Date/Time: 06/13/2016 7:59 AM
[2016-06-13] MEDS: AMLODIPINE BESYLATE 5 MG TAB PO SCH (08:37)
[2016-06-13] MEDS: CARVEDILOL 6.25 MG TAB PO SCH ×2 (08:37→20:30)
[2016-06-13] MEDS: MAGNESIUM OXIDE 400 MG TAB PO SCH (08:37)
[2016-06-13] MEDS: DOCUSATE SODIUM 100 MG CAP PO SCH ×2 (08:37→20:30)
[2016-06-13] MEDS: FERROUS SULFATE 325 MG TAB PO SCH ×2 (08:37→20:29)
[2016-06-13] MEDS: PANTOprazole SOD 40 MG TAB PO SCH (08:37)
[2016-06-13] MEDS: ASPIRIN 81 MG ECTAB PO SCH (08:37)
[2016-06-13] MEDS: CHOLECALCIFEROL 1000 INTER.UNIT TAB PO SCH (08:37)
[2016-06-13] MEDS: NYSTATIN POWDER 15GM BTL EXT SCH ×3 (08:38→20:30)
[2016-06-13] MEDS: CALCIUM 600MG + VIT D 400 IU TAB PO SCH (08:38)
[2016-06-13] MEDS: INSULIN GLARGINE SOLOSTAR 100 UNITS/ML 3 ML PEN SC SCH (08:41)
--- NOTE | 2016-06-13 11:00 | Infectious Disease Progress Nt ---
Progress Note Date of Service June 13, 2016. Subjective Pt evaluation today including: conversation w/ patient, conversation w/ family , physical exam, chart review, lab review, review of studies, conversation w/ telecommunications consultant (Dr. Onofre), review of inpatient medication list The patient overall is feeling slightly improved. She does continue to some dizziness when standing. Her creatinine today was 2.80. She did have a left upper extremity PICC line placed. She is anticipating discharge home on IV ertapenem. A renal ultrasound showed no hydronephrosis and mild moderate renal cortical thinning. All Other Systems: Reviewed and Negative Medications Current Inpatient Medications Medications (Trade) Dose Ordered Sig/Aleks Route Start Time Stop Time Status Last Admin Dose Admin Heparin Sodium (Porcine) (Heparin Sq 5000 Unit/0.5ml) 5,000 unit Q8 SQ 06/10/16 06:00 07/10/16 05:59 06/13/16 14:00 5,000 UNIT Acetaminophen (Tylenol Tab) 650 mg Q4H PRN PO 06/09/16 21:30 07/09/16 21:29 06/11/16 20:35 650 MG Ondansetron HCl (Zofran Inj) 4 mg Q6H PRN IV 06/09/16 21:30 07/09/16 21:29 Miscellaneous Information 1 ea DAILY PRN N/A 06/09/16 22:33 07/09/16 22:32 Aspirin (Ecotrin Tab) 81 mg DAILY PO 06/10/16 09:00 07/10/16 08:59 06/13/16 08:37 81 MG Calcium/Vitamin D (Caltrate Plus Tab) 1 tab DAILY PO 06/10/16 09:00 07/10/16 08:59 06/13/16 08:38 1 TAB Docusate Sodium (coLACE CAP) 100 mg BID PO 06/10/16 09:00 07/10/16 08:59 06/13/16 08:37 100 MG Magnesium Oxide (Mag-Ox Tab) 400 mg DAILY PO 06/10/16 09:00 07/10/16 08:59 06/13/16 08:37 400 MG Meclizine HCl (Antivert Tab) 25 mg TID PRN PO 06/09/16 21:45 07/09/16 21:44 Nystatin (Mycostatin Powder) 1 appln TID EXT 06/10/16 09:00 07/10/16 08:59 06/13/16 13:59 1 APPLN Simvastatin (Zocor Tab) 10 mg PM PO 06/10/16 21:00 07/10/16 20:59 06/12/16 21:13 10 MG Amlodipine Besylate (Norvasc Tab) 10 mg DAILY PO 06/10/16 09:00 07/10/16 08:59 06/13/16 08:37 10 MG Cholecalciferol (Vitamin D Tab) 5,000 inter.unit DAILY PO 06/10/16 09:00 07/10/16 08:59 06/13/16 08:37 5,000 INTER.UNIT Ferrous Sulfate (Feosol Tab) 325 mg BID PO 06/10/16 09:00 07/10/16 08:59 06/13/16 08:37 325 MG Pantoprazole Sodium (Protonix Tab) 40 mg DAILY PO 06/10/16 09:00 07/10/16 08:59 06/13/16 08:37 40 MG Insulin Aspart (novoLOG ASPART) SLIDING SCALE If C... ACHS SC 06/10/16 07:00 07/10/16 06:59 06/13/16 12:31 8 UNITS Glucose (Glucose 40% Gel) 15-30 GRAMS 15 GRAMS... UD PRN PO 06/09/16 21:45 07/09/16 21:44 Glucose (Glucose Chew Tab) 4-8 Tablets 4 Tabl... UD PRN PO 06/09/16 21:45 07/09/16 21:44 Dextrose (Dextrose 50% 50ML Syringe) 25-50ML OF 50% DW IV FOR... UD PRN IV 06/09/16 21:45 07/09/16 21:44 Glucagon (Glucagon Inj) 1 mg UD PRN SQ 06/09/16 21:45 07/09/16 21:44 Miscellaneous Information 1 ea 1 ea UD PRN N/A 06/09/16 22:47 07/09/16 22:46 Ertapenem/Sodium Chloride (Invanz Iv/Nss 50ml) 55 ml @ 110 mls/hr DAILY@2300 IV 06/09/16 23:00 06/19/16 22:59 06/12/16 21:08 110 MLS/HR Hydralazine HCl (HydrALAZINE INJ) 10 mg Q8 PRN IV. 06/11/16 21:00 07/11/16 20:59 06/12/16 16:42 10 MG Carvedilol (Coreg Tab) 6.25 mg BID PO 06/12/16 08:00 07/12/16 07:59 06/13/16 08:37 6.25 MG Hydralazine HCl (Apresoline Tab) 25 mg BID PO 06/13/16 08:00 07/13/16 07:59 06/13/16 08:37 25 MG Zolpidem Tartrate (Ambien Tab) 5 mg HS PRN PO 06/12/16 22:15 07/12/16 22:14 Insulin Glargine (Lantus Solostar Pen) 20 unit BID SC 06/13/16 17:00 07/13/16 16:59 Objective Vital Signs Date Time Temp Pulse Resp B/P Pulse Ox O2 Delivery O2 Flow Rate FiO2 06/13/16 08:00 Room Air 06/13/16 07:13 36.8 73 20 193/77 96 Room Air 06/13/16 00:00 Room Air 06/12/16 23:59 36.8 79 20 167/74 96 Room Air 06/12/16 18:49 77 178/70 06/12/16 16:10 99 Room Air 06/12/16 15:07 36.4 72 18 186/51 99 Room Air Physical Exam General Appearance: no apparent distress, + obese Eyes: normal inspection, sclerae normal ENT: hearing grossly normal Neck: supple, trachea midline Respiratory/Chest: no respiratory distress, no accessory muscle use Cardiovascular: regular rate, rhythm Extremities: + pertinent finding (LUE PICC line, C/D/I) Neurologic/Psychiatric: alert, normal mood/affect Skin: normal color, warm/dry, no rash Laboratory Results RENAL ULTRASOUND CLINICAL HISTORY: Acute renal failure. Urinary tract infection. Evaluate for pyelonephritis. COMPARISON STUDY: Renal ultrasound November 28, 2014. TECHNIQUE: Sonography of the kidneys and the urinary bladder was performed. FINDINGS: The left kidney is partially obscured on this exam. There is no hydronephrosis. The right kidney measures 12.8 x 5.2 x 5.7 cm and the left measures 10.9 x 5.2 x 5.1 cm. There is mild to moderate renal cortical thinning. Both ureteral jets are identified. IMPRESSION: 1. No hydronephrosis. 2. Mild to moderate renal cortical thinning. 3. Left kidney partially obscured on this exam due to suboptimal penetration. No renal fluid collection identified by sonography. Pyelonephritis is difficult to assess for by sonography. Item Value Date Time Urine Culture - Final Complete 06/09/161939 Urine,Catheterized Escherichia Coli Last 24 Hours Test 06/12/16 11:21 06/12/16 16:25 06/12/16 20:23 06/13/16 06:30 Bedside Glucose 236 mg/dl 223 mg/dl 226 mg/dl Sodium Level 143 mmol/L Potassium Level 5.2 mmol/L Chloride Level 116 mmol/L Carbon Dioxide Level 20 mmol/L Anion Gap 7.0 mmol/L Blood Urea Nitrogen 45 mg/dl Creatinine 2.80 mg/dl Est Creatinine Clear Calc Drug Dose 20.3 ml/min Estimated GFR () 19.4 Estimated GFR (Non- 16.8 BUN/Creatinine Ratio 16.1 Random Glucose 199 mg/dl Calcium Level 8.5 mg/dl Test 06/13/16 08:06 Bedside Glucose 198 mg/dl Assessment and Plan Patient with ESBL producing E. Coli UTI and GARETH. Renal U/S showed no evidence of hydronephrosis. Patient has PICC line in place in RUE today. Recommend continued treatment with IV Ertapenem to complete 10 days. We will follow up as outpatient. OK for D/C from ID perspective otherwise. Thanks PROVIDER ADDENDUM: Patient reviewed with Ms. Wilson. Agree with above assessment.
--- NOTE | 2016-06-13 11:26 | Pharmacy Progress Note ---
Glycemic Control: Progress Nt Date of Service June 13, 2016. Scope Glycemic Pharmacist consulted by Carola Walsh PA-C on 06/09/16 for glycemic control and to write orders per [facility] inpatient glycemic control protocol. Objective Accuchecks BSG (last 24hrs): Test 06/12/16 11:21 06/12/16 16:25 06/12/16 20:23 06/13/16 06:30 Bedside Glucose 236 mg/dl (70-90) 223 mg/dl (70-90) 226 mg/dl (70-90) Random Glucose 199 mg/dl (70-99) Test 06/13/16 08:06 Bedside Glucose 198 mg/dl (70-90) Laboratory Data (last 24hrs) HbA1c: Test 06/10/16 06:51 Hemoglobin A1c 8.9 % (4.5-5.6) H Recent Pertinent Medications Outpatient Anti-diabetic Regimen: * Novolin NPH 55 units SQ Q12hrs * Novolin Regular insulin SSI * Total daily outpatient dose ~ 110 units/day The patient is currently receiving: * Basal insulin: Lantus 10 units every 12 hours * Correctional Insulin: Novolog Correction per scale ACHS Goal Range: Low 120 mg/dL - High 140 mg/dL Correction Factor: 10 mg/dL/unit * Prandial insulin: Per carb ratio of 1 unit per 4 grams CHO consumed Risk Factors for Insulin Resistance: * Infection * Diet * Baseline insulin resistance and large outpatient doses of insulin Assessment & Plan ASSESSMENT: * 65 y/o diabetic F who is known to the glycemic service from prior admissions, currently admitted with a UTI * Previous inpatient data illustrates that when admitted with "lower" BSGs pt requires very little basal insulin but eventually returns to her severe insulin resistant state quickly * Scr is elevated as compared to baseline --> pharmacodynamic changes occur with renal impairment which leads to increased response to given doses of insulin. This could be another contributing factor to why pt is requiring little insulin as compared to outpatient dosing * Total daily dose of insulin is increasing daily as renal function improves * 25 units on 06/10 --> 46 units on 06/11 --> 81 units on 06/12. * Expect total daily dose to continue to increase as this is consistent with previous admissions and Scr is improving to baseline. PO intake is adequate. OK to continue titrating insulin regimen. * Fasting BSG this AM 198 mg/dL, basal insulin needs increased * Will change regimen based on an estimated total daily dose of 100 units/day * ADA & AACE recommend a goal blood sugar range 140-180 mg/dl for the majority of critically ill & non-critically ill patients. However, more stringent targets may be selected in individual cases. Will utilize more stringent goal of 120-140mg/dl based on patient age & comorbidities. Additionally, tighter glycemic control is warranted to facilitate wound/infection healing. Higher "low " end of the goal range to help prevent hypoglycemia with changing insulin needs. PLAN FOR INPATIENT GLYCEMIC CONTROL: Change regimen based off of an estimated total daily dose of ~100 units/day * Basal insulin * Increase Lantus to 20 units SQ BID. Give first dose early with dinner and then resume BID @ tomorrow * Bolus Insulin * NovoLog per scale ACHS or Q6hrs while NPO * Goal Range: Low 120 mg/dL - High 140 mg/dL * Correction Factor: 10 mg/dL/unit --> will loosen to 15 once increased Lantus orders in effect * Nutritional / Prandial insulin per carb ratio of 1 unit per 4 grams CHO consumed --> will loosen to 5 once new Lantus orders in effect * Continue to titrate insulin regimen daily based on BSG trends and risk factors for: insulin resistance, hypoglycemia * Please note that the plan above was derived based on current level of insulin resistance and hospital stress. These recommendations are appropriate for inpatient admission only. Plan of care upon discharge will need to be reassessed to avoid potential outpatient hypo/hyperglycemia. Thank you.
[2016-06-13 14:22] VITALS: BP 160/64
--- NOTE | 2016-06-13 14:26 | Neurology Progress Notes ---
Neurology Progress Note Date of Service June 13, 2016. Brittany Bunn is a 65 year old female with PMH - IDDM, CKD stage IV, KUSHAL, HLD, HTN and history of CVA and vertigo presents to the ED complaining of dizziness x 1 day. She states it is worse with movement and describes it as "just not feeling right" She states that she was going to just wait it out but when she went to the bathroom she was too off balance to walk down the ac. She states that she has some rhinorrhea that she attributes to allergies. She also reports her left ear feels clogged but that this ear was effect by her stroke. She took antivert at home with minimal relief. She denies fevers, chills, chest pain, SOB , nausea, vomiting, diarrhea, dysuria, calf pain and edema. She is on insulin for diabetes, BSG is usually between 200-500, She had a negative CT head is negative, WBC count is mildly elevated at 11K, UA shows infection. Crea is 3.1 from baseline of 1.8. BSG is 64. She is currently receiving antibiotics and states the vertigo has calmed down. She is sleep when coming into room. She has no complaints at this time. denies CP, SOB, abdominal pain, one sided weakness, numbness tingling, N, V. She does report some nausea with the vertigo but no vomiting. She state the last time she had this she went to and they did maneuvers with her head that stopped the vertigo. She states she may go home today. Her vertigo is improved with Vinny and Antivert Objective Date Time Temp Pulse Resp B/P Pulse Ox O2 Delivery O2 Flow Rate FiO2 06/13/16 08:00 Room Air 06/13/16 07:13 36.8 73 20 193/77 96 Room Air 06/13/16 00:00 Room Air 06/12/16 23:59 36.8 79 20 167/74 96 Room Air 06/12/16 18:49 77 178/70 06/12/16 16:10 99 Room Air 06/12/16 15:07 36.4 72 18 186/51 99 Room Air Last 24 Hours Test 06/12/16 16:25 06/12/16 20:23 06/13/16 06:30 06/13/16 08:06 Bedside Glucose 223 mg/dl 226 mg/dl 198 mg/dl Sodium Level 143 mmol/L Potassium Level 5.2 mmol/L Chloride Level 116 mmol/L Carbon Dioxide Level 20 mmol/L Anion Gap 7.0 mmol/L Blood Urea Nitrogen 45 mg/dl Creatinine 2.80 mg/dl Est Creatinine Clear Calc Drug Dose 20.3 ml/min Estimated GFR () 19.4 Estimated GFR (Non- 16.8 BUN/Creatinine Ratio 16.1 Random Glucose 199 mg/dl Calcium Level 8.5 mg/dl Test 06/13/16 11:40 Bedside Glucose 94 mg/dl Imaging: no new imaging Exam: Physical Exam: Constitutional: appearance nourished, obese pale Ears, Nose, Mouth and Throat: mucous membranes moist, no injection and skin normal, eyes normal Cardiovascular: normal S-1 and S-2 and regular rate and rhythm Respiratory: normal respiratory effort Musculoskeletal: no peripheral edema and good distal pulses Skin: no stigmata of neurocutaneous disease noted and normal and intact Eyes: extraocular muscles intact (EOMI) and pupils equal, round and reactive to light (PERRL) NEUROLOGIC EXAMINATION: Mental status: Alert and interactive Oriented to person Speech fluent with no evidence of aphasia Cranial Nerves facial symmetric Coordination: heel to mckeon bilaterally intact Gait/Stance: Posture sitting up in bed Motor: Negative for pronator drift of out stretched arms with eyes closed. Strength: moving spontaneously and with direction Current Inpatient Medications Medications (Trade) Dose Ordered Sig/Aleks Route Start Time Stop Time Status Last Admin Dose Admin Heparin Sodium (Porcine) (Heparin Sq 5000 Unit/0.5ml) 5,000 unit Q8 SQ 06/10/16 06:00 07/10/16 05:59 06/13/16 14:00 5,000 UNIT Acetaminophen (Tylenol Tab) 650 mg Q4H PRN PO 06/09/16 21:30 07/09/16 21:29 06/11/16 20:35 650 MG Ondansetron HCl (Zofran Inj) 4 mg Q6H PRN IV 06/09/16 21:30 07/09/16 21:29 Miscellaneous Information 1 ea DAILY PRN N/A 06/09/16 22:33 07/09/16 22:32 Aspirin (Ecotrin Tab) 81 mg DAILY PO 06/10/16 09:00 07/10/16 08:59 06/13/16 08:37 81 MG Calcium/Vitamin D (Caltrate Plus Tab) 1 tab DAILY PO 06/10/16 09:00 07/10/16 08:59 06/13/16 08:38 1 TAB Docusate Sodium (coLACE CAP) 100 mg BID PO 06/10/16 09:00 07/10/16 08:59 06/13/16 08:37 100 MG Magnesium Oxide (Mag-Ox Tab) 400 mg DAILY PO 06/10/16 09:00 07/10/16 08:59 06/13/16 08:37 400 MG Meclizine HCl (Antivert Tab) 25 mg TID PRN PO 06/09/16 21:45 07/09/16 21:44 Nystatin (Mycostatin Powder) 1 appln TID EXT 06/10/16 09:00 07/10/16 08:59 06/13/16 13:59 1 APPLN Simvastatin (Zocor Tab) 10 mg PM PO 06/10/16 21:00 07/10/16 20:59 06/12/16 21:13 10 MG Amlodipine Besylate (Norvasc Tab) 10 mg DAILY PO 06/10/16 09:00 07/10/16 08:59 06/13/16 08:37 10 MG Cholecalciferol (Vitamin D Tab) 5,000 inter.unit DAILY PO 06/10/16 09:00 07/10/16 08:59 06/13/16 08:37 5,000 INTER.UNIT Ferrous Sulfate (Feosol Tab) 325 mg BID PO 06/10/16 09:00 07/10/16 08:59 06/13/16 08:37 325 MG Pantoprazole Sodium (Protonix Tab) 40 mg DAILY PO 06/10/16 09:00 07/10/16 08:59 06/13/16 08:37 40 MG Insulin Aspart (novoLOG ASPART) SLIDING SCALE If C... ACHS SC 06/10/16 07:00 07/10/16 06:59 06/13/16 12:31 8 UNITS Glucose (Glucose 40% Gel) 15-30 GRAMS 15 GRAMS... UD PRN PO 06/09/16 21:45 07/09/16 21:44 Glucose (Glucose Chew Tab) 4-8 Tablets 4 Tabl... UD PRN PO 06/09/16 21:45 07/09/16 21:44 Dextrose (Dextrose 50% 50ML Syringe) 25-50ML OF 50% DW IV FOR... UD PRN IV 06/09/16 21:45 07/09/16 21:44 Glucagon (Glucagon Inj) 1 mg UD PRN SQ 06/09/16 21:45 07/09/16 21:44 Miscellaneous Information 1 ea 1 ea UD PRN N/A 06/09/16 22:47 07/09/16 22:46 Ertapenem/Sodium Chloride (Invanz Iv/Nss 50ml) 55 ml @ 110 mls/hr DAILY@2300 IV 06/09/16 23:00 06/19/16 22:59 06/12/16 21:08 110 MLS/HR Hydralazine HCl (HydrALAZINE INJ) 10 mg Q8 PRN IV. 06/11/16 21:00 07/11/16 20:59 06/12/16 16:42 10 MG Carvedilol (Coreg Tab) 6.25 mg BID PO 06/12/16 08:00 07/12/16 07:59 06/13/16 08:37 6.25 MG Hydralazine HCl (Apresoline Tab) 25 mg BID PO 06/13/16 08:00 07/13/16 07:59 06/13/16 08:37 25 MG Zolpidem Tartrate (Ambien Tab) 5 mg HS PRN PO 06/12/16 22:15 07/12/16 22:14 Insulin Glargine (Lantus Solostar Pen) 20 unit BID SC 06/13/16 17:00 07/13/16 16:59 Impression 65 year old female dizziness with a history of vertigo -presents with UTI , uncontrolled DM Plan 1. patient was helped with Vinny maneuvers in the past ordered PT to try bedside - repeat did improve symptoms 2. UTI and kidney function may be contributing to the vertigo symptoms 3. antivert prn 4. MRI with no new CVA old infarcts noted 5. orthostatic blood pressures done with negative for orthostasis 6. PT/OT for evaluation of gait and use of walker to minimize falls 7. carotid doppler with no significant stenosis 8. follow up with ophthalmology as out patient for transit double vision I have seen and discussed above patient with Dr Ashley Ramos neurology Pt seen and discussed, likely peripheral vertigo given hx,and prior episodes. Will sign off, XIOMARA Ramos MD
[2016-06-13 14:51] VITALS: BP 148/65; PULSE 70; TEMP 36.7; O2SAT 96
[2016-06-13 16:10] VITALS: O2SAT 99
[2016-06-13] MEDS ORDERED: INSULIN GLARGINE SOLOSTAR 100 UNITS/ML 3 ML PEN SC SCH (17:00)
--- NOTE | 2016-06-13 19:10 | Progress Note ---
Internal Med Progress Note Date of Service: June 13, 2016. Provider Documentation: SUBJECTIVE: feels dizzy with movement of head , diplopia has improved, feels fine otherwise OBJECTIVE: Vital Signs-as noted below Exam: General-no sign of distress Eyes-sclera non icteric Lungs-CTA Heart-regular S1/S2 Abdomen-soft, non tender Extremities-no lower ext edema , no rash or deformity Neuro-AAO x3, no focal deficit Lab data as noted below. ASSESSMENT & PLAN: 65 year old female presents to the ED complaining of dizziness, vision changes. URINARY TRACT INFECTION /ESBL E.COLI -no evidence of sepsis -Previous urine culture with multidrug resistant e.coli -on admission empirically treated with ertapenem, pharmacy consulted for dosing d/t poor crea clearance -urine culture shows E Coli , multidrug resistant , sensitive to Invanz -on IV Invanz day # 5 -ID consult appreciated renal ultrasound showed no hydronephrosis and mild moderate renal cortical thinning. . Recommend continued treatment on IV Ertapenem. for total 10 IV therapy, -had PICC line placed -pt lives locally -willing to come [facility] for daily IV antibiotic tx follow up with ID as out patient -before completion of antibiotic tx VERTIGO,VISION CHANGES /BPPPV -no evidence of CVA , MRI of brain negative for CVA -having intermittent symptom -CT head negative for acute changes -Antivert ordered prn for vertigo -pt mentions of having chronic vertigo , visual disturbance of left eye after last stoke -Neurology consult requested -appreciate input prior hx of BPPV symptom improved after Vinny maneuver done at [facility] ordered for PT to do Vinny at bedside Cont PRN Meclizine no further neurological testing or intervention needed out pt ophthalmology follow up for transient diplopia ACUTE RENAL FAILURE on CKD stage IV -Crea 3.1 baseline 1.8 -due to vol depletion .dehydration in setting of UTI -hold Lasix cr gradually improving ~3 -> 2.8 off IVF -avoid other nephrotoxic agents as able -follow PRP -appreciate input form Nephrology HYPERKALEMIA: due to above K improved not on any K supplement, no ACEI /ARB low k diet monitor PRP IDDM presented with hypoglycemia, BSG 65-75. States glucose at home is 200-500 -updated HB A1c 8.9 -pharmacy consult for glycemic management appreciate input pt's out pt diabetic regimen : Novolin N 55 U Q 12 plus Novolin R sliding scale due to presentation with hypoglycemia more conservative regimen is being used Basal insulin Lantus to be given only when BSG > 180 insulin SSI HTN -BP persistently elevated - BB changed form Lopressor to Coreg will increase the dose to 6.25 BID IVF D/rosa Hydralazine 25 mg PO BID ordered PRN IV Hydralazine for SBP > 160 -Lasix on hold for GARETH KUSHAL -continue CPAP at night H/O CVA -continue aspirin, statin GERD -continue PPI DVT PROPHYLAXIS: Sq heparin CODE STATUS:FULL CODE DISPOSITION PT/OT eval requested possible discharge home will benefit form home health visiting nurse will need IV Abx as out pt -home vs [facility] pt is willing to come to [facility] daily for IV Abx PICC Line placed social service consulted for discharge planning Vital Signs: Date Time Temp Pulse Resp B/P Pulse Ox O2 Delivery O2 Flow Rate FiO2 06/13/16 16:10 99 Room Air 06/13/16 14:51 36.7 70 20 148/65 96 Room Air 06/13/16 14:22 160/64 06/13/16 08:00 Room Air 06/13/16 07:13 36.8 73 20 193/77 96 Room Air 06/13/16 00:00 Room Air 06/12/16 23:59 36.8 79 20 167/74 96 Room Air Lab Results: Results Past 24 Hours Test 06/13/16 06:30 06/13/16 08:06 06/13/16 11:40 06/13/16 16:27 Range/Units Sodium Level 143 136-145 mmol/L Potassium Level 5.2 3.5-5.1 mmol/L Chloride Level 116 98-107 mmol/L Carbon Dioxide Level 20 21-32 mmol/L Anion Gap 7.0 3-11 mmol/L Blood Urea Nitrogen 45 7-18 mg/dl Creatinine 2.80 0.60-1.20 mg/dl Est Creatinine Clear Calc Drug Dose 20.3 ml/min Estimated GFR () 19.4 Estimated GFR (Non- 16.8 BUN/Creatinine Ratio 16.1 10-20 Random Glucose 199 70-99 mg/dl Calcium Level 8.5 8.5-10.1 mg/dl Bedside Glucose 198 94 85 70-90 mg/dl Test 5/5/17 19:58 Range/Units Bedside Glucose 161 70-90 mg/dl
[2016-06-13] MEDS: SIMVASTATIN 10 MG TAB PO SCH (20:31)
[2016-06-13 22:40] VITALS: BP 182/76; PULSE 88; TEMP 36.9; O2SAT 96
[2016-06-13 23:50] VITALS: BP 180/63; PULSE 78
[2016-06-13] MEDS: ERTAPENEM IV 500 MG in SODIUM CHLORIDE 0.9% 50 ML IV SCH (23:57)
[2016-06-14] MEDS: HydrALAZINE HCL 20 MG/ML VIAL IV. PRN ×2 (00:01→22:40)
[2016-06-14 00:50] VITALS: BP 154/87; PULSE 83
[2016-06-14 06:36] LABS: BUN/CREATININE RATIO 16.3 (10-20); CALCIUM 8.1 mg/dl (8.5-10.1); POTASSIUM 4.7 mmol/L (3.5-5.1)
[2016-06-14] MEDS: HEPARIN SOD 5000 UNIT/0.5 ML CARP SQ SCH ×3 (06:38→22:14)
[2016-06-14 06:52] VITALS: BP 193/71; PULSE 76; TEMP 36.9; O2SAT 92
[2016-06-14] MEDS: MAGNESIUM OXIDE 400 MG TAB PO SCH (07:32)
[2016-06-14] MEDS: PANTOprazole SOD 40 MG TAB PO SCH (07:32)
[2016-06-14] MEDS: ASPIRIN 81 MG ECTAB PO SCH (07:32)
[2016-06-14] MEDS: CALCIUM 600MG + VIT D 400 IU TAB PO SCH (07:32)
[2016-06-14] MEDS: AMLODIPINE BESYLATE 5 MG TAB PO SCH (07:32)
[2016-06-14] MEDS: NYSTATIN POWDER 15GM BTL EXT SCH ×3 (07:33→21:58)
[2016-06-14] MEDS: DOCUSATE SODIUM 100 MG CAP PO SCH ×2 (07:33→21:54)
[2016-06-14] MEDS: CARVEDILOL 6.25 MG TAB PO SCH ×2 (07:33→21:54)
[2016-06-14] MEDS: FERROUS SULFATE 325 MG TAB PO SCH ×2 (07:33→21:54)
[2016-06-14] MEDS: CHOLECALCIFEROL 1000 INTER.UNIT TAB PO SCH (07:33)
[2016-06-14] MEDS: INSULIN ASPART 100 UNITS/ML 3 ML PEN SC SCH ×4 (08:55→22:15)
[2016-06-14] MEDS: INSULIN GLARGINE SOLOSTAR 100 UNITS/ML 3 ML PEN SC SCH ×2 (08:56→22:13)
--- NOTE | 2016-06-14 10:26 | Pharmacy Progress Note ---
Glycemic Control: Progress Nt Date of Service June 14, 2016. Scope Glycemic Pharmacist consulted by Carola Walsh PA-C on 06/09/16 for glycemic control and to write orders per [facility] inpatient glycemic control protocol. Objective Accuchecks BSG (last 24hrs): Test 06/13/16 11:40 06/13/16 16:27 06/13/16 19:58 06/14/16 05:50 Bedside Glucose 94 mg/dl (70-90) 85 mg/dl (70-90) 161 mg/dl (70-90) Random Glucose 187 mg/dl (70-99) Test 06/14/16 07:29 Bedside Glucose 200 mg/dl (70-90) Laboratory Data (last 24hrs) HbA1c: Test 06/10/16 06:51 Hemoglobin A1c 8.9 % (4.5-5.6) H Recent Pertinent Medications Outpatient Anti-diabetic Regimen: * Novolin NPH 55 units SQ Q12hrs * Novolin Regular insulin SSI * Total daily outpatient dose ~ 110 units/day The patient is currently receiving: * Basal insulin: Lantus 20 units every 12 hours * Correctional Insulin: Novolog Correction per scale ACHS Goal Range: Low 120 mg/dL - High 140 mg/dL Correction Factor: 15 mg/dL/unit * Prandial insulin: Per carb ratio of 1 unit per 5 grams CHO consumed Risk Factors for Insulin Resistance: * Infection * Diet * Baseline insulin resistance and large outpatient doses of insulin Assessment & Plan ASSESSMENT: Initial: * 65 y/o diabetic F who is known to the glycemic service from prior admissions, currently admitted with a UTI * Previous inpatient data illustrates that when admitted with "lower" BSGs pt requires very little basal insulin but eventually returns to her severe insulin resistant state quickly around day 4-5 of admission (Pt uses 100+ units/day per previous admissions glycemic data ) * Scr is elevated as compared to baseline --> pharmacodynamic changes occur with renal impairment which leads to increased response to given doses of insulin. This could be another contributing factor to why pt is requiring little insulin as compared to outpatient dosing 06/14/16: * Pt is following glycemic pattern consistent with previous admissions. Total daily dose of insulin is increasing daily as renal function & condition improves * 25 units on 06/10 --> 46 units on 06/11 --> 81 units on 06/12 --> 72 units on 06/13 {probably would have received more insulin on 06/13 but CHO coverage was "subtracted off" for lunch & dinner d/t below goal range BSGs} * Expect total daily dose to continue to increase as this is consistent with previous admissions and Scr is improving to baseline. PO intake is adequate. OK to continue titrating insulin regimen. Pt uses 100+ units/day per previous admissions glycemic data * Fasting BSG this AM 200 mg/dL, basal insulin needs increased * Will change regimen based on an estimated total daily dose of 100 units/day PLAN FOR INPATIENT GLYCEMIC CONTROL: Change regimen based off of an estimated total daily dose of ~100 units/day * Basal insulin * Increase Lantus to 25 units SQ BID * Bolus Insulin * NovoLog per scale ACHS or Q6hrs while NPO * Goal Range: Low 120 mg/dL - High 140 mg/dL (more stringent goal range based on age/co-morbidities & to facilitate infection healing) * Correction Factor: 15 mg/dL/unit * Nutritional / Prandial insulin per carb ratio of 1 unit per 5 grams CHO consumed * Continue to titrate insulin regimen daily based on BSG trends and risk factors for: insulin resistance, hypoglycemia * Please note that the plan above was derived based on current level of insulin resistance and hospital stress. These recommendations are appropriate for inpatient admission only. Plan of care upon discharge will need to be reassessed to avoid potential outpatient hypo/hyperglycemia. Thank you.
[2016-06-14 14:49] VITALS: BP 171/71; PULSE 69; TEMP 36.7; O2SAT 97
[2016-06-14 16:20] VITALS: O2SAT 99
--- NOTE | 2016-06-14 16:53 | Progress Note ---
Internal Med Progress Note Date of Service: June 14, 2016. Provider Documentation: SUBJECTIVE: Dizzy spell much better today no fever or chills BP remains persistently elevated no complain of SOB or chest discomfort OBJECTIVE: Vital Signs-as noted below Exam: General-no sign of distress Eyes-sclera non icteric Lungs-CTA Heart-regular S1/S2 Abdomen-soft, non tender Extremities-no lower ext edema , no rash or deformity Neuro-AAO x3, no focal deficit Lab data as noted below. ASSESSMENT & PLAN: 65 year old female presents to the ED complaining of dizziness, vision changes. URINARY TRACT INFECTION /ESBL E.COLI -no evidence of sepsis -Previous urine culture with multidrug resistant e.coli -on admission empirically treated with ertapenem, pharmacy consulted for dosing d/t poor crea clearance -urine culture shows E Coli , multidrug resistant , sensitive to Invanz -on IV Invanz day # 6 -ID consult appreciated renal ultrasound showed no hydronephrosis and mild moderate renal cortical thinning. . Recommend continued treatment on IV Ertapenem. for total 10 IV therapy, -had PICC line placed -pt lives locally -willing to come [facility] for daily IV antibiotic tx follow up with ID as out patient -before completion of antibiotic tx VERTIGO,VISION CHANGES /BPPPV -no evidence of CVA , MRI of brain negative for CVA -having intermittent symptom -CT head negative for acute changes -Antivert ordered prn for vertigo -pt mentions of having chronic vertigo , visual disturbance of left eye after last stoke -Neurology consult requested -appreciate input prior hx of BPPV symptom improved after Vinny maneuver done at [facility] ordered for PT to do Vinny at bedside Cont PRN Meclizine no further neurological testing or intervention needed out pt ophthalmology follow up for transient diplopia ACUTE RENAL FAILURE on CKD stage IV -Crea 3.1 baseline 1.8 -due to vol depletion .dehydration in setting of UTI -hold Lasix cr gradually improving ~3 -> 2.8 off IVF -avoid other nephrotoxic agents as able -follow PRP -appreciate input form Nephrology HYPERKALEMIA: due to above K improved not on any K supplement, no ACEI /ARB low k diet monitor PRP IDDM presented with hypoglycemia, BSG 65-75. States glucose at home is 200-500 -updated HB A1c 8.9 -pharmacy consult for glycemic management appreciate input pt's out pt diabetic regimen : Novolin N 55 U Q 12 plus Novolin R sliding scale due to presentation with hypoglycemia more conservative regimen is being used Basal insulin Lantus to be given only when BSG > 180 insulin SSI HTN -BP persistently elevated - BB changed form Lopressor to Coreg on Coreg to 6.25 BID Hydralazine dose increased 50 mg PO BID PRN IV Hydralazine for SBP > 160 -Lasix on hold for GARETH KUSHAL -continue CPAP at night H/O CVA -continue aspirin, statin GERD -continue PPI DVT PROPHYLAXIS: Sq heparin CODE STATUS:FULL CODE DISPOSITION possible discharge home tomorrow will need IV Abx for # 4 more days pt is willing to come [facility] daily for IV Abx PICC Line placed social service consulted for discharge planning Vital Signs: Date Time Temp Pulse Resp B/P Pulse Ox O2 Delivery O2 Flow Rate FiO2 06/14/16 21:48 36.8 79 18 193/77 93 Room Air 06/14/16 16:20 99 Room Air 06/14/16 14:49 36.7 69 20 171/71 97 Room Air 06/14/16 08:00 Room Air 06/14/16 06:52 36.9 76 18 193/71 92 Room Air 06/14/16 00:50 83 154/87 06/14/16 00:18 Room Air 06/13/16 23:50 78 180/63 06/13/16 22:40 36.9 88 16 182/76 96 Room Air Lab Results: Results Past 24 Hours Test 06/14/16 05:50 06/14/16 07:29 06/14/16 11:24 06/14/16 16:40 Range/Units Sodium Level 144 136-145 mmol/L Potassium Level 4.7 3.5-5.1 mmol/L Chloride Level 115 98-107 mmol/L Carbon Dioxide Level 19 21-32 mmol/L Anion Gap 10.0 3-11 mmol/L Blood Urea Nitrogen 49 7-18 mg/dl Creatinine 3.00 0.60-1.20 mg/dl Est Creatinine Clear Calc Drug Dose 18.9 ml/min Estimated GFR () 17.9 Estimated GFR (Non- 15.4 BUN/Creatinine Ratio 16.3 10-20 Random Glucose 187 70-99 mg/dl Calcium Level 8.1 8.5-10.1 mg/dl Bedside Glucose 200 174 83 70-90 mg/dl Test 06/14/16 20:09 Range/Units Bedside Glucose 170 70-90 mg/dl
[2016-06-14 21:48] VITALS: BP 193/77; PULSE 79; TEMP 36.8; O2SAT 93
[2016-06-14] MEDS: SIMVASTATIN 10 MG TAB PO SCH (21:57)
[2016-06-14] MEDS ORDERED: CRG625 PO (22:26)
[2016-06-14] MEDS ORDERED: AMB5 PO (22:26)
[2016-06-14] MEDS ORDERED: HYDR-4717 PO (22:27)
--- NOTE | 2016-06-14 22:28 | Discharge Instructions ---
Discharge Instructions Date of Service June 14, 2016. Admission Reason for Admission: Acute Renal Failure, Dizziness, Uti Discharge Discharge Diagnosis / Problem: ACUTE RENAL FAILURE /DIZZY SPELL /URINARY TRACT INFECTION Discharge Goals Goal(s): Decrease discomfort, Increase independence, Diagnostic testing, Therapeutic intervention Activity Recommendations Activity Limitations: resume your previous activity . Instructions / Follow-Up Instructions / Follow-Up HOSPITAL FOLLOW UP ON 06/19/2016 @ 2:[address] Yanet Golden MD General Internal Medicine [facility] LAB WORK : BASIC METABOLIC PANEL ON 06/19/16 FOLLOW UP WITH SLEEP MEDICINE ON 06/26/2016 @ 9:[address] Александр Fulelr MD Sleep Disorders, [facility] INFECTIOUS DISEASE FOLLOW UP IN A WEEK , AFTER COMPLETION OF IV ANTIBIOTIC PLEASE CALL OFFICE OF FREDERIC DOLAN PA-C TO SCHEDULE APPOINTMENT PLEASE FOLLOW UP WITH YOUR TRIM AND BURR OPERATOR FOR VISION PROBLEM DO NOT TAKE ADVIL , MOTRIN , ALEVE , IBUPROFEN , NAPROXEN -AVOID NSAID'S WILL CAUSE MORE DAMAGE TO YOUR KIDNEYS YOU NEED TO COME TO [facility] ) EVERY DAY FOR NEST 3 DAYS FOR IV ANTIBIOTIC FOR URINARY TRACT INFECTION YOU PICC LINE WILL BE REMOVED AFTER IV ANTIBIOTIC TREATMENT IS COMPLETED Current Hospital Diet Patient's current hospital diet: AHA Diet (Heart Healthy), Diabetes Type 2 Diet , Low Potassium Diet (2g K) Discharge Diet Recommended Diet: AHA Diet (Heart Healthy), Diabetes Type 2 Diet, Low Potassium Diet (2g K) Pending Studies Studies pending at discharge: yes List of pending studies: BASIC METABOLIC PANEL ON 06/19/16 Laboratory Results Hemoglobin A1c Test 06/10/16 06:51 Range/Units Estimated Average Glucose 209 mg/dl Hemoglobin A1c 8.9 H 4.5-5.6 % Medical Emergencies . Who to Call and When: Medical Emergencies: If at any time you feel your situation is an emergency, please call 911 immediately. . Non-Emergent Contact Non-Emergency issues call your: Primary Care Provider . . "Provider Documentation" section prepared by Syeda Onofre. . VTE Core Measure Inpt VTE Proph given/why not?: Enoxaparin (Lovenox)SQ
[2016-06-14 23:24] VITALS: BP 170/67; PULSE 78
[2016-06-14] MEDS: ERTAPENEM IV 500 MG in SODIUM CHLORIDE 0.9% 50 ML IV SCH (23:26)
[2016-06-15 00:12] VITALS: BP 164/64; PULSE 81
[2016-06-15 04:29] VITALS: BP 153/64; PULSE 74
[2016-06-15] MEDS: HEPARIN SOD 5000 UNIT/0.5 ML CARP SQ SCH ×2 (06:03→14:06)
[2016-06-15 06:36] LABS: CREATININE 3.1 mg/dl (0.60-1.20)
[2016-06-15 06:37] LABS: BUN/CREATININE RATIO 17.4 (10-20); CALCIUM 8.3 mg/dl (8.5-10.1); POTASSIUM 4.6 mmol/L (3.5-5.1)
[2016-06-15 06:48] VITALS: BP 168/52; PULSE 76; TEMP 36.9; O2SAT 94
[2016-06-15] MEDS: AMLODIPINE BESYLATE 5 MG TAB PO SCH (07:59)
[2016-06-15] MEDS: PANTOprazole SOD 40 MG TAB PO SCH (07:59)
[2016-06-15] MEDS: CHOLECALCIFEROL 1000 INTER.UNIT TAB PO SCH (07:59)
[2016-06-15] MEDS: MAGNESIUM OXIDE 400 MG TAB PO SCH (07:59)
[2016-06-15] MEDS: FERROUS SULFATE 325 MG TAB PO SCH (07:59)
[2016-06-15] MEDS: CALCIUM 600MG + VIT D 400 IU TAB PO SCH (07:59)
[2016-06-15] MEDS: DOCUSATE SODIUM 100 MG CAP PO SCH (07:59)
[2016-06-15] MEDS: CARVEDILOL 6.25 MG TAB PO SCH (07:59)
[2016-06-15] MEDS: NYSTATIN POWDER 15GM BTL EXT SCH ×2 (07:59→14:07)
[2016-06-15] MEDS: ASPIRIN 81 MG ECTAB PO SCH (07:59)
[2016-06-15] MEDS ORDERED: INSULIN GLARGINE SOLOSTAR 100 UNITS/ML 3 ML PEN SC SCH (08:00)
[2016-06-15] MEDS: INSULIN ASPART 100 UNITS/ML 3 ML PEN SC SCH ×2 (09:15→12:37)
[2016-06-15] MEDS ORDERED: ANT25 PO (14:56)
--- NOTE | 2016-06-15 14:56 | NEPHROLOGY PROGRESS NOTE ---
DATE: 06/15/2016 DATE: 06/15/2016. SUBJECTIVE: No new issues overnight. She denies any nausea, vomiting, chest pain, shortness of breath. She is eating and drinking perfectly normal. She is much less dizzy today than on admission. No fever, no chills. Blood pressure if anything is high. She is now without IV fluids. OBJECTIVE: VITAL SIGNS: Blood pressure 168/52 and 94% on room air, pulse rate 76 per minute, temperature 36.9. HEAD, EYES, EARS, NOSE, AND THROAT: Mucous membrane is moist. NECK: Supple. No jugular venous distention. CHEST: Bilateral clear to auscultation. CARDIOVASCULAR: Regular S1 and S2, distant heart sounds. ABDOMEN: Soft, nontender, obese. EXTREMITIES: Shows trace edema. NEUROLOGIC: Awake, alert, oriented x3, no focal deficit. LABORATORY TESTS: This morning hemoglobin is 9.0, WBC count 8.5, platelet count 208. Sodium 144, potassium 4.6, BUN 54, creatinine 3.1. ASSESSMENT AND PLAN: Acute kidney injury on chronic kidney disease stage IV, creatinine is 1.8 at baseline. She came in with a creatinine of 3.1, which seems to be stable. After 2 days of IV fluid I do not think she needs more IV fluid, but the creatinine is still around the same, but given her blood pressure and her completely normal oral intake of both solids and liquids I do not think she needs fluids. I did explain to her that her creatinine has not got better nor worse. She does not need dialysis at this time. Given her underlying chronic kidney disease stage IV and longstanding diabetes, renal function does not always recover right away. She will have to be seen by nephrology within 1 week of discharge to monitor her renal recovery. Here blood pressure is somewhat high, but given her acute renal failure and her acute illness I am not in a hurry to bring her blood pressure down further. Continue same. MTDD
[2016-06-15] MEDS ORDERED: ERTAPENEM IV 500 MG in SODIUM CHLORIDE 0.9% 50 ML IV ONE (15:15)
[2016-06-15 15:16] VITALS: BP 168/52; PULSE 76; TEMP 36.9; O2SAT 94
--- NOTE | 2016-06-15 15:38 | Discharge Summary ---
Discharge Summary Date of Service June 15, 2016. Discharge Summary Admission Date: June 09, 2016 at 21:31 Discharge Date: June 15, 2016 Discharge Disposition: Home with services Principal Diagnosis: ACUTE RENAL FAILURE /DIZZY SPELL /URINARY TRACT INFECTION Consultations: NEPHROLOGY DR HUANG NEUROLOGY ID Pending Studies/Follow-Up: LAB WORK : BASIC METABOLIC PANEL ON 06/19/16 Medication Reconciliation New Medications: Hydralazine Hcl (Apresoline) 50 Mg Tab 1 TAB PO BID for 60 Days, #120 TAB 3 Refills Meclizine HCl (Meclizine HCl) 25 Mg Tab 1 TAB PO TID PRN for Dizziness or Vertigo, #60 TABS 2 Refills Carvedilol (Carvedilol) 6.25 Mg Tab 6.25 MG PO BID for 30 Days, #60 TAB 1 Refill Zolpidem Tartrate (Zolpidem Tartrate) 5 Mg Tab 5 MG PO HS PRN for Sleep for 30 Days, #30 TAB Continued Medications: Acetaminophen Tab (Tylenol) 325 Mg Tab 650 MG PO Q6 PRN for Pain, TAB Amlodipine Besylate (Amlodipine Besylate) 10 Mg Tab 10 MG PO DAILY, #90 Aspirin (Aspirin Ec) 81 Mg Tab 81 MG PO DAILY Calcium/Vitamin D (Os-George 500 Plus D) Tab 1 TAB PO DAILY, TAB Cholecalciferol (Vitamin D3) 5,000 Unit Tab 1 TAB PO DAILY Docusate Sodium (Docusate Sodium) 100 Mg Cap 1 CAP PO BID for 7 Days, #14 CAP Ferrous Sulfate (Ferrous Sulfate) 325 Mg Tab 325 MG PO BID, #180 Insulin Isophane (Human) (Novolin N Relion) 100 Unit/Ml Inj 55 UNITS SC Q12, #20 PLUS SLIDING SCALE Insulin Regular (Human) (Novolin R Relion) 100 Unit/Ml Inj SQ ACHS, #20 PLUS SLIDING SCALE Magnesium Oxide (Mag-Ox) 400 Mg Tab 400 MG PO DAILY, TAB Meclizine Hcl (Meclizine Hcl) 25 Mg Tab 25 MG PO TID PRN for Dizziness or Vertigo, #180 Nystatin (Topical) (Nystatin) 100,000 Unit/Gm Pow 1 APPLN TOP TID, #60 Pantoprazole Sodium (Protonix) 20 Mg Tab 20 MG PO DAILY, #90 Simvastatin (Simvastatin) 10 Mg Tab 10 MG PO DAILY, #90 Sumatriptan Succinate (Imitrex) 25 Mg Tab 25 MG PO PRN UD, #18 Discontinued Medications: Furosemide (Furosemide) 20 Mg Tab 20 MG PO DAILY, #90 Metoprolol Tartrate (Lopressor) 25 Mg Tab 12.5 MG PO BID, #45 Referrals At Discharge Follow up Referrals: Infectious Disease - Within 1-2 Weeks with Layla Dolan .ANAM Admission Information HPI (per Admitting provider): Patient seen and examined. 65 year old female with PMHx of IDDM, CKD stage IV, KUSHAL, HLD, HTN and history of CVA presents to the ED complaining of dizziness x 1 day. Patient reports she has felt dizzy all day. She states it is worse with movement and describes it as "just not feeling right" She has an associated sharp frontal headache that she rates as a 7/10. She also reports blurry vision. She states that she was going to just wait it out but when she went to the bathroom she was too off balance to walk down the ac. So she came to the ED for further evaluation. She states that she has some rhinorrhea that she attributes to allergies. She also reports her left ear feels clogged but that this ear was effect by her stroke. She took antivert at home with minimal relief. She denies fevers, chills, chest pain, SOB, nausea, vomiting, diarrhea, dysuria, calf pain and edema. She is on insulin for diabetes, BSG is usually between 200-500, she took her insulin today. In the ED VS are stable. CT head is negative, WBC count is mildly elevated at 11K, UA shows infection. Crea is 3.1 from baseline of 1.8. BSG is 64. She received Rocephin and IVFs, and Antivert. She is resting comfortably. She will be admitted for further workup and treatment. Physical Exam (per Admitting): General Appearance: + pertinent finding (Pleasant obese 65 year old female who appears older than stated age lying in bed in NAD ) Head: normocephalic, atraumatic Eyes: PERRL, EOMI, sclerae normal ENT: hearing grossly normal, TMs normal, pharynx normal Neck: supple, no JVD Respiratory/Chest: chest non-tender, lungs clear, normal breath sounds, no respiratory distress, no accessory muscle use Cardiovascular: regular rate, rhythm, no edema, no gallop, no JVD, no murmur , normal peripheral pulses Abdomen/GI: normal bowel sounds, non tender, soft Back: normal inspection, no CVA tenderness, no muscle spasm Extremities/Musculoskelatal: no calf tenderness, normal capillary refill, no pedal edema Neurologic/Psych: alert, oriented x 3, + pertinent finding (decrease strength right arm secondary to shoulder surgery, otherwise no focal deficits ) Skin: normal color, warm/dry, no rash Lymphatic: no adenopathy Hospital Course 65 year old female presents to the ED complaining of dizziness, vision changes. feels fine today . dizzy spell has improved , no fever or chills feels well enough to be discharged home P/E: GEN ; no sign of distress HEENT ; sclera non icteric HT ; regular S1/S2 LUNGS; no rales or wheeze ABDOMEN: soft,non tender EXT : no rash or deformity NEURO: no focal deficit A.P URINARY TRACT INFECTION /ESBL E.COLI -no evidence of sepsis -Previous urine culture with multidrug resistant e.coli -on admission empirically treated with ertapenem, pharmacy consulted for dosing d/t poor crea clearance -urine culture shows E Coli , multidrug resistant , sensitive to Invanz -on IV Invanz day # 7 ( needs 3 more days of tx -at [facility]) -ID consult appreciated renal ultrasound showed no hydronephrosis and mild moderate renal cortical thinning. . Recommend continued treatment on IV Ertapenem. for total 10 IV therapy, -has PICC line placed -pt lives locally -willing to come to [facility] for daily IV antibiotic tx stable to be discharged home today follow up with ID as out patient VERTIGO,VISION CHANGES /BPPPV -no evidence of CVA , MRI of brain negative for CVA -having intermittent symptom -CT head negative for acute changes -Antivert ordered prn for vertigo -pt mentions of having chronic vertigo , visual disturbance of left eye after last stoke -Neurology consult requested -appreciate input prior hx of BPPV symptom improved after Vinny maneuver done at [facility] ordered for PT to do Vinny at bedside Cont PRN Meclizine no further neurological testing or intervention needed out pt ophthalmology follow up for transient diplopia ; pt has yearly diabetic eye exam coming up in few months with Dr Webster /Dr Acevedo at [facility] ophthalmology clinic ACUTE RENAL FAILURE on CKD stage IV -Crea 3.1 baseline 1.8 -due to vol depletion .dehydration in setting of UTI -hold Lasix cr gradually improving ~3 -> 2.8 -> 3 off IVF -avoid other nephrotoxic agents as able -follow PRP -appreciate input form Nephrology stable to be discharged home out pt follow up with Dr Huang in 1-2 weeks script given for lab work BMP check on 06/19/16 pt is asked not take Lasix till lab work is checked asked to avoid NSAID's for chronic pain HYPERKALEMIA: due to above K improved not on any K supplement, no ACEI /ARB low k diet out pt BMP ordered pt is given instruction for low K diet IDDM presented with hypoglycemia, BSG 65-75. States glucose at home is 200-500 -updated HB A1c 8.9 -pharmacy consult for glycemic management appreciate input pt's out pt diabetic regimen : Novolin N 55 U Q 12 plus Novolin R sliding scale due to presentation with hypoglycemia more conservative regimen is being used Basal insulin Lantus to be given only when BSG > 180 insulin SSI HTN -BP improved - BB changed form Lopressor to Coreg discharged on Coreg to 6.25 BID Hydralazine 50 mg PO BID -Lasix on hold for GARETH KUSHAL -continue CPAP at night have follow up appointment with sleep medicine on 06/26/16 H/O CVA -continue aspirin, statin GERD -continue PPI DVT PROPHYLAXIS: Sq heparin CODE STATUS:FULL CODE DISPOSITION possible discharge home today will need IV Abx for # 3 more days pt will come to [facility] form tomorrow for daily IV invanz dose script given to CM to schedule the time for infusion PICC line will be discontinued after IV Antibiotic is completed pt is requesting to have home health visiting nurse to assist her to arrange pills at home and also needs periodic blood pressure check sow manager updated Total time spent on discharge = 40 mins This includes examination of the patient, discharge planning, medication reconciliation, and communication with other providers. Discharge Instructions Discharge Instructions Date of Service June 14, 2016. Admission Reason for Admission: Acute Renal Failure, Dizziness, Uti Discharge Discharge Diagnosis / Problem: ACUTE RENAL FAILURE /DIZZY SPELL /URINARY TRACT INFECTION Discharge Goals Goal(s): Decrease discomfort, Increase independence, Diagnostic testing, Therapeutic intervention Activity Recommendations Activity Limitations: resume your previous activity . Instructions / Follow-Up Instructions / Follow-Up HOSPITAL FOLLOW UP ON 06/19/2016 @ 2:[address] Yanet Golden MD General Internal Medicine [facility] LAB WORK : BASIC METABOLIC PANEL ON 06/19/16 FOLLOW UP WITH SLEEP MEDICINE ON 06/26/2016 @ 9:[address] Александр Fuller MD Sleep Disorders, [facility] INFECTIOUS DISEASE FOLLOW UP IN A WEEK , AFTER COMPLETION OF IV ANTIBIOTIC PLEASE CALL OFFICE OF FREDERIC DOLAN PA-C TO SCHEDULE APPOINTMENT PLEASE FOLLOW UP WITH YOUR UNLOADING CHECKER FOR VISION PROBLEM DO NOT TAKE ADVIL , MOTRIN , ALEVE , IBUPROFEN , NAPROXEN -AVOID NSAID'S WILL CAUSE MORE DAMAGE TO YOUR KIDNEYS YOU NEED TO COME TO [facility] ( [facility] ) EVERY DAY FOR NEST 3 DAYS FOR IV ANTIBIOTIC FOR URINARY TRACT INFECTION YOU PICC LINE WILL BE REMOVED AFTER IV ANTIBIOTIC TREATMENT IS COMPLETED Current Hospital Diet Patient's current hospital diet: AHA Diet (Heart Healthy), Diabetes Type 2 Diet , Low Potassium Diet (2g K) Discharge Diet Recommended Diet: AHA Diet (Heart Healthy), Diabetes Type 2 Diet, Low Potassium Diet (2g K) Pending Studies Studies pending at discharge: yes List of pending studies: BASIC METABOLIC PANEL ON 06/19/16 Laboratory Results Hemoglobin A1c Test 06/10/16 06:51 Range/Units Estimated Average Glucose 209 mg/dl Hemoglobin A1c 8.9 H 4.5-5.6 % Medical Emergencies . Who to Call and When: Medical Emergencies: If at any time you feel your situation is an emergency, please call 911 immediately. . Non-Emergent Contact Non-Emergency issues call your: Primary Care Provider . . "Provider Documentation" section prepared by Syeda Onofre. . VTE Core Measure Inpt VTE Proph given/why not?: Enoxaparin (Lovenox)SQ Additional Copies To Yanet Golden M.D. Rukhsana Huang I., DO
[2016-08-08] MEDS ORDERED: NRV5 PO (11:54)
[2016-08-08] MEDS ORDERED: insulin N SQ (11:54)
[2016-08-08] MEDS ORDERED: INSULIN REG SC (11:54)
[2016-08-19] MEDS ORDERED: TRAM-10 PO (10:53)
[2016-09-08] MEDS ORDERED: PLV75 PO (12:26)
[2016-09-08] MEDS ORDERED: LSX40 PO (12:27)
[2016-09-08] MEDS ORDERED: LPT40 PO (12:27)
[2016-09-08] MEDS ORDERED: APR50 PO (12:27)
[2017-01-07] MEDS ORDERED: EPGI2M SQ (10:34)
[2017-01-07] MEDS ORDERED: AMLO2.5T PO (10:34)
[2017-01-07] MEDS ORDERED: MULT-506 PO (11:54)
[2017-01-07] MEDS ORDERED: CALC500C70 PO (17:41)
[2017-01-07] MEDS ORDERED: ASPI81TA28 PO (17:41)
[2017-01-07] MEDS ORDERED: MAGN400T6 PO (17:41)
== END 2016-06-15 16:40 | disposition home health service (06) | DRG 683 ==
LOC: ENRESERVDT → ENRESERVTM → C.EDB 18:20 → C.2T 21:31 → C.MS4W 06-11 17:53
PROVIDERS: ADMIT Internal Medicine; ATTEND Hospitalist
PROC: 05HY33Z Insertion of Infusion Device into Upper Vein, Percutaneous Approach (ICD-10-PCS; principal; 2016-06-13)
DX: N17.9 Acute kidney failure, unspecified (principal); N39.0 Urinary tract infection, site not specified; N18.4 Chronic kidney disease, stage 4 (severe); I12.9 Hypertensive chronic kidney disease with stage 1 through stage 4 chronic kidney disease, or unspecified chronic kidney disease; F41.9 Anxiety disorder, unspecified; I25.10 Atherosclerotic heart disease of native coronary artery without angina pectoris; K21.9 Gastro-esophageal reflux disease without esophagitis; E78.5 Hyperlipidemia, unspecified; G47.33 Obstructive sleep apnea (adult) (pediatric); Z96.653 Presence of artificial knee joint, bilateral; I51.7 Cardiomegaly; E11.649 Type 2 diabetes mellitus with hypoglycemia without coma; A49.8 Other bacterial infections of unspecified site; Z79.82 Long term (current) use of aspirin; Z79.4 Long term (current) use of insulin

== ENCOUNTER 2016-06-24 15:56 | Inpatient (IN) | payer OTHER ==
[~2016-06-24] VITALS: Ht 152.4 cm; Wt 95.8 kg
[~2016-06-24 15:56] MED LIST changes: +AMB5 PO; -AMLO5TAB2 PO; +CRG625 PO; -CTP/1 PO; -FERR325T51 PO; -FURO-85 PO; -GABA-113 PO; +HYDR-4717 PO; -INSUINJ7 SC; -INSUINJ8 SC; -LOVA20TA4 PO; -METO25TA3 PO; -MULT-506 PO; -POLYSOL21 OPB; -PRLSR20 PO
--- NOTE | 2016-06-24 16:24 | EMERGENCY ROOM VISIT NOTE ---
History Report prepared by Kwame: Jillian Beltre Under the Supervision of: Dr. Amy Nuñez M.D. First contact with patient: 16:06 Chief Complaint: SHORTNESS OF BREATH Stated Complaint: SOB, WHEEZING History of Present Illness The patient is a 66 year old female who presents to the Emergency Room with complaints of worsening shortness of breath beginning 2 days prior to arrival. She is experiencing trouble breathing and wheezing. She notes that exertion worsens her symptoms. The patient also notes swelling to her lower extremities but does states that she has been off her Lasix due to her kidney function. The patient is a diabetic. She denies known cardiac issues, prior blood clots, recent antibiotic use, or urinary symptoms. Source of History: patient Onset: [address] RECORDER Position: other (global) Quality: other (shortness of breath) Timing: worsening Modifying Factors (Worsening): exertion Associated Symptoms: No urinary symptoms Note: The patient is experiencing trouble breathing, wheezing and swelling to her lower extremities. Review of Systems See HPI for pertinent positives & negatives. A total of 10 systems reviewed and were otherwise negative. Past Medical & Surgical Medical Problems: (1) Anxiety (2) CAD (coronary artery disease) (3) CKD (chronic kidney disease) stage 3, GFR 30-59 ml/min (4) Depression (5) Diabetes (6) GERD (gastroesophageal reflux disease) (7) Hyperlipidemia (8) Hypertension (9) Interstitial lung disease (10) KUSHAL (obstructive sleep apnea) Surgical Problems: (1) Hx of shoulder surgery (2) Hx of total knee replacement Family History Diabetes mellitus FHx: gallbladder disease Hypertension Kidney disease Social History Smoking Status: Never Smoker Alcohol Use: none Drug Use: none Marital Status: Housing Status: lives with family Current/Historical Medications Scheduled Amlodipine Besylate (Amlodipine Besylate), 10 MG PO DAILY Aspirin (Aspirin Ec), 81 MG PO DAILY Calcium/Vitamin D (Os-George 500 Plus D), 1 TAB PO DAILY Carvedilol (Coreg), 6.25 MG PO BID Cholecalciferol (Vitamin D3), 1 TAB PO DAILY Docusate Sodium (Docusate Sodium), 1 CAP PO BID Ferrous Sulfate (Ferrous Sulfate), 325 MG PO BID Hydralazine Hcl (Apresoline), 50 MG PO BID Insulin Isophane (Human) (Novolin N Relion), 55 UNITS SC Q12 Insulin Regular (Human) (Novolin R Relion), SQ ACHS Magnesium Oxide (Mag-Ox), 400 MG PO DAILY Metoprolol Tartrate (Lopressor), 12.5 MG PO DAILY Nystatin (Topical) (Nystatin), 1 APPLN TOP TID Pantoprazole Sodium (Protonix), 20 MG PO DAILY Simvastatin (Simvastatin), 10 MG PO DAILY Sumatriptan Succinate (Imitrex), 25 MG PO PRN UD Scheduled PRN Acetaminophen Tab (Tylenol), 650 MG PO Q6 PRN for Pain Meclizine Hcl (Meclizine Hcl), 25 MG PO TID PRN for Dizziness or Vertigo Zolpidem Tartrate (Zolpidem Tartrate), 5 MG PO HS PRN for Sleep Allergies Coded Allergies: Codeine (Verified Allergy, Intermediate, hives, 06/24/16) Pioglitazone (Unverified Allergy, Intermediate, Rash/Fluid retention, 06/24) RETAINS FLUID Morphine (Verified Allergy, Mild, 06/24/16) Physical Exam Vital Signs Date Time Temp Pulse Resp B/P Pulse Ox O2 Delivery O2 Flow Rate FiO2 06/24/16 17:26 81 16 97 06/24/16 17:01 220/85 06/24/16 16:57 82 22 228/82 98 Room Air 06/24/16 16:56 83 19 99 06/24/16 16:52 87 06/24/16 16:49 228/82 06/24/16 16:11 98 Room Air 06/24/16 16:02 36.8 84 22 222/103 98 Room Air Physical Exam Vital signs reviewed. General: Well-appearing female, in no significant distress. HEENT: No scleral icterus, PERRLA, neck supple. Atraumatic. Cardiovascular: Regular rate and rhythm, no extra sounds. Pulmonary: Clear to auscultation bilaterally, increased work of breathing. Abdomen: Obese, soft, nontender, nondistended, positive bowel sounds. Musculoskeletal: Atraumatic,1-2+ pitting edema bilaterally to lower extremities. Neurologic: Patient awake alert and oriented x 3, full strength in all 4 extremities. Cranial nerves 2 through 12 grossly intact. Skin: Warm, dry, no rash. Medical Decision & Procedures ER Provider Diagnostic Interpretation: Radiology results as stated below per my review and radiologist interpretation: CHEST ONE VIEW PORTABLE CLINICAL HISTORY: SOB COMPARISON STUDY: 06/13/2016 FINDINGS: The heart is borderline enlarged. There are right basal airspace opacities. There is improving aeration the left lung base. There is a suspected tiny right pleural effusion. There is mild central vascular prominence without evidence of overt failure. There is a right shoulder arthroplasty.[ IMPRESSION: 1. Persistent right basilar airspace opacities. 2. Improving aeration left lower lobe 3. Suspected small right pleural effusion Electronically signed by: Zack Estrada M.D. 06/24/2016 4:41 PM Dictated Date/Time: 06/24/2016 4:40 PM ULTRASOUND VENOUS DOPPLER LWR EXT BILA CLINICAL HISTORY: Shortness of breath, bilateral lower extremity leg swelling. COMPARISON STUDY: 07/23/2015 FINDINGS: Real-time and color flow Doppler imaging were performed. Flow was seen within the femoral, popliteal and calf veins with no intraluminal thrombus demonstrated. The saphenous vein is patent. Evaluation of the calf veins was limited due to the patient's body habitus and lower extremity swelling. IMPRESSION: No evidence of lower extremity DVT. Electronically signed by: Zack Estrada M.D. 06/24/2016 6:38 PM Dictated Date/Time: 06/24/2016 6:37 PM Laboratory Results 06/24/16 16:30 Red Blood Count 3.02, Mean Corpuscular Volume 88.7, Mean Corpuscular Hemoglobin 28.1, Mean Corpuscular Hemoglobin Concent 31.7, Mean Platelet Volume 9.8, Neutrophils (%) (Auto) 70.9, Lymphocytes (%) (Auto) 17.4, Monocytes (%) (Auto) 5.4, Eosinophils (%) (Auto) 5.9, Basophils (%) (Auto) 0.2, Neutrophils # (Auto) 5.74, Lymphocytes # (Auto) 1.41, Monocytes # (Auto) 0.44, Eosinophils # (Auto) 0.48, Basophils # (Auto) 0.02 06/24/16 16:30 Test 06/24/16 16:30 06/24/16 16:38 06/24/16 16:50 White Blood Count 8.11 K/uL (4.8-10.8) Red Blood Count 3.02 M/uL (4.2-5.4) Hemoglobin 8.5 g/dL (12.0-16.0) Hematocrit 26.8 % (37-47) Mean Corpuscular Volume 88.7 fL (80-100) Mean Corpuscular Hemoglobin 28.1 pg (25-34) Mean Corpuscular Hemoglobin Concent 31.7 g/dl (32-36) Platelet Count 235 K/uL (130-400) Mean Platelet Volume 9.8 fL (7.4-10.4) Neutrophils (%) (Auto) 70.9 % Lymphocytes (%) (Auto) 17.4 % Monocytes (%) (Auto) 5.4 % Eosinophils (%) (Auto) 5.9 % Basophils (%) (Auto) 0.2 % Neutrophils # (Auto) 5.74 K/uL (1.4-6.5) Lymphocytes # (Auto) 1.41 K/uL (1.2-3.4) Monocytes # (Auto) 0.44 K/uL (0.11-0.59) Eosinophils # (Auto) 0.48 K/uL (0-0.5) Basophils # (Auto) 0.02 K/uL (0-0.2) RDW Standard Deviation 48.1 fL (36.4-46.3) RDW Coefficient of Variation 14.8 % (11.5-14.5) Immature Granulocyte % (Auto) 0.2 % Immature Granulocyte # (Auto) 0.02 K/uL (0.00-0.02) Red Blood Cell Morphology Unremarkable Anion Gap 7.0 mmol/L (3-11) Est Creatinine Clear Calc Drug Dose 19.8 ml/min Estimated GFR () 18.6 Estimated GFR (Non- 16.1 BUN/Creatinine Ratio 13.6 (10-20) Calcium Level 8.2 mg/dl (8.5-10.1) Total Bilirubin 0.2 mg/dl (0.2-1) Direct Bilirubin < 0.1 mg/dl (0-0.2) Aspartate Amino Transf (AST/SGOT) 17 U/L (15-37) Alanine Aminotransferase (ALT/SGPT) 44 U/L (12-78) Alkaline Phosphatase 101 U/L (45-117) Total Creatine Kinase 107 U/L (26-192) Creatine Kinase MB 3.7 ng/ml (0.5-3.6) Creatine Kinase MB Ratio 3.5 (0-3.0) Total Protein 6.9 gm/dl (6.4-8.2) Albumin 2.7 gm/dl (3.4-5.0) Bedside D-Dimer > 450 ng/mlFEU (0-450) Bedside Troponin I 0.000 ng/ml (0-0.045) ZD-Svo-S-Type Natriuretic Peptide 2544 pg/ml (0-900) Urine Color YELLOW Urine Appearance CLEAR (CLEAR) Urine pH 5.0 (4.5-7.5) Urine Specific [place] 1.018 (1.000-1.030) Urine Protein 3+ (NEG) Urine Glucose (UA) 1+ (NEG) Urine Ketones NEG (NEG) Urine Occult Blood NEG (NEG) Urine Nitrite NEG (NEG) Urine Bilirubin NEG (NEG) Urine Urobilinogen NEG (NEG) Urine Leukocyte Esterase NEG (NEG) Urine WBC (Auto) 1-5 /hpf (0-5) Urine RBC (Auto) 0-4 /hpf (0-4) Urine Hyaline Casts (Auto) 1-5 /lpf (0-5) Urine Epithelial Cells (Auto) >30 /lpf (0-5) Urine Bacteria (Auto) 1+ (NEG) Urine Renal Epithelial Cells /lpf (0-5) Laboratory results per my review. ECG Indication: SOB/dyspnea Rate (beats per minute): 83 Rhythm: normal sinus Findings: no acute ischemic change, no ectopy, other (previous inferior and anterior infarct) ED Course 161: Past medical records reviewed. The patient was evaluated in room B10. A complete history and physical examination was performed. 1810: Lasix Inj 40 mg IV. 1816: The patient was seen in the office today as saw the Cardiology PA. The PA wanted her admitted, Dr. Escoto also wanted her admitted. All think her diagnosis is diastolic heart failure. 1829: Hydralazine Inj 10 mg IV. 185: I reviewed the patient's case with Dr. Gurpreet Garcia. Dr Gurpreet Garcia will evaluate the patient for further management. Medical Decision The patient is a 66 year old female who presents to the ED with complaints of shortness of breath. Differentials include infections, reactive airway disease , pneumonia, pneumothorax, COPD, CHF, cardiac ischemia, pulmonary embolism, musculoskeletal, gastrointestinal, as well as others were entertained. This patient was evaluated and appeared to be in no significant distress. Patient is old piece but has a diffuse bilateral lower extremities. Lung sounds are generally clear. Chest x-ray was obtained and is significant for bilateral basilar opacities and a small pleural effusion. Laboratory work reveals negative cardiac enzymes, elevated d-dimer. Patient has chronic renal insufficiency. She was apparently seen by both cardiology and nephrology today. They have recommended IV diuresis for heart failure. The patient was given 40 mg of IV Lasix. Ultrasound of bilateral lower extremities are negative for DVT. The case has been discussed with the hospitalist service, Dr. Vázquez who will evaluate the patient for admission and further management. Consults Time Called: 1853 Consulting Physician: Dr. Gurpreet Garcia Returned Call: 1855 I reviewed the patient's case with Dr. Gurpreet Garcia. Dr Gurpreet Garcia will evaluate the patient for further management. Impression Primary Impression: Heart failure Additional Impressions: Fluid overload Chronic renal failure Scribe Attestation The scribe's documentation has been prepared under my direction and personally reviewed by me in its entirety. I confirm that the note above accurately reflects all work, treatment, procedures, and medical decision making performed by me. Departure Information Dispostion Being Evaluated By Hospitalist Referrals Yanet Golden M.D. (PCP) Problem Qualifiers
[2016-06-24] MEDS ORDERED: HYDR-4717 PO (16:33)
[2016-06-24] MEDS ORDERED: ZOLP5TAB6 PO (16:33)
[2016-06-24] MEDS ORDERED: CARV6.252 PO (16:33)
[2016-06-24] MEDS ORDERED: LPR25 PO (16:33)
[2016-06-24 16:41] LABS: BASO % 0.2 %; BASO ABS # 0.02 K/uL (0-0.2); EOS % 5.9 %; HEMATOCRIT 26.8 % (37-47); IG% 0.2 %; LYMPH % 17.4 %; LYMPH ABS # 1.41 K/uL (1.2-3.4); MEAN CELL VOLUME 88.7 fL (80-100); MEAN CORPUSCULAR HEMOGLOBIN 28.1 pg (25-34); MEAN CORPUSCULAR HGB CONC 31.7 g/dl (32-36); MEAN PLATELET VOLUME 9.8 fL (7.4-10.4); MONO % 5.4 %; NEUT % 70.9 %; PLATELET COUNT 235 K/uL (130-400); RED BLOOD COUNT 3.02 M/uL (4.2-5.4); WHITE BLOOD COUNT 8.11 K/uL (4.8-10.8)
--- NOTE | 2016-06-24 16:43 | DIAGNOSTIC IMAGING REPORT ---
CHEST ONE VIEW PORTABLE CLINICAL HISTORY: SOB COMPARISON STUDY: 06/13/2016 FINDINGS: The heart is borderline enlarged. There are right basal airspace opacities. There is improving aeration the left lung base. There is a suspected tiny right pleural effusion. There is mild central vascular prominence without evidence of overt failure. There is a right shoulder arthroplasty.[ IMPRESSION: 1. Persistent right basilar airspace opacities. 2. Improving aeration left lower lobe 3. Suspected small right pleural effusion Electronically signed by: Zack Estrada M.D. 06/24/2016 4:41 PM Dictated Date/Time: 06/24/2016 4:40 PM
[2016-06-24 16:59] LABS: ALT/SGPT 44 U/L (12-78); AST/SGOT 17 U/L (15-37); BLOOD UREA NITROGEN 39 mg/dl (7-18); BUN/CREATININE RATIO 13.6 (10-20); CALCIUM 8.2 mg/dl (8.5-10.1); CARBON DIOXIDE 21 mmol/L (21-32); CHLORIDE 119 mmol/L (98-107); GLUCOSE 203 mg/dl (70-99); POTASSIUM 5.1 mmol/L (3.5-5.1); SODIUM 147 mmol/L (136-145)
[2016-06-24 17:02] LABS: POINT OF CARE PRO-BNP 2544 pg/ml (0-900)
[2016-06-24 17:04] LABS: ALKALINE PHOSPHATASE 101 U/L (45-117); CKMB/CK RATIO 3.5 (0-3.0)
[2016-06-24 17:10] LABS: URINE APPEARANCE CLEAR (CLEAR); URINE BILIRUBIN NEG (NEG); URINE COLOR YELLOW; URINE EPITHELIAL CELL AUTO >30 /lpf (0-5); URINE NITRITE NEG (NEG); URINE SPECIFIC GRAVITY 1.018 (1.000-1.030); UROBILINOGEN NEG (NEG)
[2016-06-24 17:11] LABS: MANUAL MICROSCOPIC REQUIRED? NO; REVIEW REQ? YES
[2016-06-24 17:13] LABS: COMPLETE YES
[2016-06-24 17:20] LABS: ZZURINE CULT IF INDIC CATH YES
[2016-06-24] MEDS ORDERED: CHOL1TAB46 PO (17:41)
[2016-06-24] MEDS ORDERED: FUROSEMIDE 40 MG/4 ML VIAL IV STA (18:11)
[2016-06-24] MEDS ORDERED: HydrALAZINE HCL 20 MG/ML VIAL IV. STA (18:30)
--- NOTE | 2016-06-24 18:39 | DIAGNOSTIC IMAGING REPORT ---
ULTRASOUND VENOUS DOPPLER LWR EXT BILA CLINICAL HISTORY: Shortness of breath, bilateral lower extremity leg swelling. COMPARISON STUDY: 07/23/2015 FINDINGS: Real-time and color flow Doppler imaging were performed. Flow was seen within the femoral, popliteal and calf veins with no intraluminal thrombus demonstrated. The saphenous vein is patent. Evaluation of the calf veins was limited due to the patient's body habitus and lower extremity swelling. IMPRESSION: No evidence of lower extremity DVT. Electronically signed by: Zack Estrada M.D. 06/24/2016 6:38 PM Dictated Date/Time: 06/24/2016 6:37 PM
--- NOTE | 2016-06-24 19:26 | History and Physical ---
History & Physical Date & Time of Service: June 24, 2016 at 19:26 . Chief Complaint: shortness of breath . Primary Care Physician: Yanet Golden M.D. . History of Present Illness Source: patient, clinic records, hospital records 66 YO female followed by Dr. Yanet Golden for Internal Medicine and Dr. Escoto for Nephrology. History of hypertension, CKD IV, DM type 2, and other problems noted below. Hospitalized at [facility] 06/09/16 with acute kidney injury superimposed on CKD. Creatinine was 3.1 at the time of admission. Furosemide was held and IV fluids were administered. However, there was no improvement of renal function and creatinine day of discharge was 3.1. Patient was instructed to continue to hold furosemide. Experiencing increasing dyspnea on exertion over last 2 days. No fever. Rare nonproductive cough. Had an episode of chest pressure radiating to her back 2 days prior to admission ; none since. No pleuritic chest pain. No orthopnea. No change of chronic dependent edema. Seen in clinic and referred to ED for further management. . Past Medical/Surgical History Chronic and Resolved Medical Problems: (1) Anxiety Status: Chronic (2) CKD (chronic kidney disease), stage IV Status: Chronic (3) Depression Status: Chronic (4) Diabetes mellitus, type 2 Status: Chronic (5) GERD (gastroesophageal reflux disease) Status: Chronic (6) Hyperlipidemia Status: Chronic (7) Hypertension Status: Chronic (8) Interstitial lung disease Status: Chronic (9) KUSHAL (obstructive sleep apnea) Permanent Comment: CPAP HS Status: Chronic Surgical Problems: (1) Hx of shoulder surgery Status: Chronic (2) Hx of total knee replacement Status: Chronic . Family History FATHER Cancer (? gastric primary) MOTHER Kidney disease Dementia Diabetes mellitus BROTHER Diabetes mellitus Myocardial infarction BROTHER Diabetes mellitus Myocardial infarction Social History Smoking Status: Never Smoker Alcohol Use: none Drug Use: none Marital Status: Housing status: lives with family Immunizations History of Influenza Vaccine: Yes History of Tetanus Vaccine?: utd Tetanus Immunization Date: Feb 19, 2006 History of Pneumococcal: Yes History of Hepatitis B Vaccine: No Allergies Coded Allergies: Codeine (Verified Allergy, Intermediate, hives, 06/24/16) Pioglitazone (Unverified Allergy, Intermediate, Rash/Fluid retention, 06/24) RETAINS FLUID Morphine (Verified Allergy, Mild, 06/24/16) Home Medications Scheduled Amlodipine Besylate (Amlodipine Besylate), 10 MG PO DAILY Aspirin (Aspirin Ec), 81 MG PO DAILY Calcium/Vitamin D ([place]-George 500 Plus D), 1 TAB PO DAILY Carvedilol (Coreg), 6.25 MG PO BID Cholecalciferol (Vitamin D3), 1 TAB PO DAILY Docusate Sodium (Docusate Sodium), 1 CAP PO BID Ferrous Sulfate (Ferrous Sulfate), 325 MG PO BID Hydralazine Hcl (Apresoline), 50 MG PO BID Insulin Isophane (Human) (Novolin N Relion), 55 UNITS SC Q12 Insulin Regular (Human) (Novolin R Relion), SQ ACHS Magnesium Oxide (Mag-Ox), 400 MG PO DAILY Nystatin (Topical) (Nystatin), 1 APPLN TOP TID Pantoprazole Sodium (Protonix), 20 MG PO DAILY Simvastatin (Simvastatin), 10 MG PO DAILY Sumatriptan Succinate (Imitrex), 25 MG PO PRN UD Scheduled PRN Acetaminophen Tab (Tylenol), 650 MG PO Q6 PRN for Pain Meclizine Hcl (Meclizine Hcl), 25 MG PO TID PRN for Dizziness or Vertigo Zolpidem Tartrate (Zolpidem Tartrate), 5 MG PO HS PRN for Sleep Review of Systems Constitutional: No fever, No weight loss Eyes: + problem reported (intermittent blurred vision attributed to elevated blood sugars) ENT: + problem reported (chronic intermittent vertigo), + sore throat (mild), No hearing loss, No nasal symptoms Respiratory: + problem reported (as noted in HPI) Cardiovascular: + problem reported (as noted in HPI) Abdomen: + problem reported (dark stools), No diarrhea, No nausea, No pain, No vomiting Musculoskeletal: + joint pain (knees and hands) Genitourinary - Female: No dysuria, No hematuria Neurologic: + problem reported (occasional falls; chronic headaches) Endocrine: + fatigue, + problem reported (blood sugars fluctuate) Hematologic / Lymphatic: + abnormal bleeding/bruising Integumentary: No new/changing skin lesions, No rash Physical Exam Vital Signs Date Time Temp Pulse Resp B/P Pulse Ox O2 Delivery O2 Flow Rate FiO2 06/24/16 19:24 83 16 214/95 97 Room Air 06/24/16 17:26 81 16 97 06/24/16 17:01 220/85 06/24/16 16:57 82 22 228/82 98 Room Air 06/24/16 16:56 83 19 99 06/24/16 16:52 87 06/24/16 16:49 228/82 06/24/16 16:11 98 Room Air 06/24/16 16:02 36.8 84 22 222/103 98 Room Air General Appearance: WD/WN, no apparent distress Head: normocephalic, atraumatic Eyes: normal inspection, PERRL, EOMI, sclerae normal (conjunctivae pink) ENT: normal ENT inspection, hearing grossly normal, pharynx normal Neck: supple, no adenopathy, thyroid normal, no JVD, trachea midline Respiratory/Chest: lungs clear, no respiratory distress, no accessory muscle use Cardiovascular: regular rate, rhythm, normal peripheral pulses, + JVD, + systolic murmur (I/ sys murmur at base), + gallop/S4, + pertinent finding (1+ pretibial edema; capillary refill toes 1-2 sec) Abdomen/GI: normal bowel sounds, non tender, soft, no organomegaly, no pulsatile mass Extremities/Musculoskelatal: no calf tenderness, normal capillary refill, + swelling (1+ pretibial edema) Neurologic/Psych: 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 as tested (PERRL, EOMI, no facial palsy, no dysarthria), no motor/sensory deficits (motor strength upper and lower extremities 5/5), alert, normal mood/affect, oriented x 3 Skin: normal color, warm/dry, no rash Lymphatic: no adenopathy (cervical, axillary) Diagnostics Laboratory Results Results Past 24 Hours Test 06/24/16 16:30 06/24/16 16:38 06/24/16 16:50 Range/Units White Blood Count 8.11 4.8-10.8 K/uL Red Blood Count 3.02 4.2-5.4 M/uL Hemoglobin 8.5 12.0-16.0 g/dL Hematocrit 26.8 37-47 % Mean Corpuscular Volume 88.7 80-100 fL Mean Corpuscular Hemoglobin 28.1 25-34 pg Mean Corpuscular Hemoglobin Concent 31.7 32-36 g/dl Platelet Count 235 130-400 K/uL Mean Platelet Volume 9.8 7.4-10.4 fL Neutrophils (%) (Auto) 70.9 % Lymphocytes (%) (Auto) 17.4 % Monocytes (%) (Auto) 5.4 % Eosinophils (%) (Auto) 5.9 % Basophils (%) (Auto) 0.2 % Neutrophils # (Auto) 5.74 1.4-6.5 K/uL Lymphocytes # (Auto) 1.41 1.2-3.4 K/uL Monocytes # (Auto) 0.44 0.11-0.59 K/uL Eosinophils # (Auto) 0.48 0-0.5 K/uL Basophils # (Auto) 0.02 0-0.2 K/uL RDW Standard Deviation 48.1 36.4-46.3 fL RDW Coefficient of Variation 14.8 11.5-14.5 % Immature Granulocyte % (Auto) 0.2 % Immature Granulocyte # (Auto) 0.02 0.00-0.02 K/uL Red Blood Cell Morphology Unremarkable Sodium Level 147 136-145 mmol/L Potassium Level 5.1 3.5-5.1 mmol/L Chloride Level 119 98-107 mmol/L Carbon Dioxide Level 21 21-32 mmol/L Anion Gap 7.0 3-11 mmol/L Blood Urea Nitrogen 39 7-18 mg/dl Creatinine 2.90 0.60-1.20 mg/dl Est Creatinine Clear Calc Drug Dose 19.8 ml/min Estimated GFR () 18.6 Estimated GFR (Non- 16.1 BUN/Creatinine Ratio 13.6 10-20 Random Glucose 203 70-99 mg/dl Calcium Level 8.2 8.5-10.1 mg/dl Total Bilirubin 0.2 0.2-1 mg/dl Direct Bilirubin < 0.1 0-0.2 mg/dl Aspartate Amino Transf (AST/SGOT) 17 15-37 U/L Alanine Aminotransferase (ALT/SGPT) 44 12-78 U/L Alkaline Phosphatase 101 45-117 U/L Total Creatine Kinase 107 26-192 U/L Creatine Kinase MB 3.7 0.5-3.6 ng/ml Creatine Kinase MB Ratio 3.5 0-3.0 Total Protein 6.9 6.4-8.2 gm/dl Albumin 2.7 3.4-5.0 gm/dl Bedside D-Dimer > 450 0-450 ng/mlFEU Bedside Troponin I 0.000 0-0.045 ng/ml MU-Vmh-O-Type Natriuretic Peptide 2544 0-900 pg/ml Urine Color YELLOW Urine Appearance CLEAR CLEAR Urine pH 5.0 4.5-7.5 Urine Specific [place] 1.018 1.000-1.030 Urine Protein 3+ NEG Urine Glucose (UA) 1+ NEG Urine Ketones NEG NEG Urine Occult Blood NEG NEG Urine Nitrite NEG NEG Urine Bilirubin NEG NEG Urine Urobilinogen NEG NEG Urine Leukocyte Esterase NEG NEG Urine WBC (Auto) 1-5 0-5 /hpf Urine RBC (Auto) 0-4 0-4 /hpf Urine Hyaline Casts (Auto) 1-5 0-5 /lpf Urine Epithelial Cells (Auto) >30 0-5 /lpf Urine Bacteria (Auto) 1+ NEG Urine Renal Epithelial Cells 0-5 /lpf Microbiology Results 06/24/16 Urine Culture, Received Pending Diagnostic Radiology CHEST ONE VIEW PORTABLE FINDINGS: The heart is borderline enlarged. There are right basal airspace opacities. There is improving aeration the left lung base. There is a suspected tiny right pleural effusion. There is mild central vascular prominence without evidence of overt failure. There is a right shoulder arthroplasty.[ IMPRESSION: 1. Persistent right basilar airspace opacities. 2. Improving aeration left lower lobe 3. Suspected small right pleural effusion Electronically signed by: Zack Estrada M.D. 06/24/2016 4:41 PM Dictated Date/Time: 06/24/2016 4:40 PM ULTRASOUND VENOUS DOPPLER LWR EXT BILA FINDINGS: Real-time and color flow Doppler imaging were performed. Flow was seen within the femoral, popliteal and calf veins with no intraluminal thrombus demonstrated. The saphenous vein is patent. Evaluation of the calf veins was limited due to the patient's body habitus and lower extremity swelling. IMPRESSION: No evidence of lower extremity DVT. Electronically signed by: Zack Estrada M.D. 06/24/2016 6:38 PM Dictated Date/Time: 06/24/2016 6:37 PM . EKG EKG performed at 16:12 reviewed and demonstrated NSR at 83 / minute, baseline artifact, poor R-wave progression, no acute ST or T-wave abnormalities. No significant change compared to 06/11/16. . Impression Assessment and Plan CHF Furosemide recently held due to worsening renal function. Probable acute on chronic left ventricular diastolic heart failure. BNP elevated. Chest x-ray does not show overt pulmonary edema, but pulmonary vasculature is prominent and small right pleural effusion noted. Echo 11/23/14 demonstrated LVEF 55-60%, no segmental wall motion abnormalities. Resume furosemide. Consult Cardiology. ELEVATED D-DIMER At risk for VTE due to recent hospitalization. D-dimer in ED elevated. Venous duplex negative for DVT. Cannot do CTA because of CKD. Check V/Q. HYPERTENSION BP elevated in ED. Continue carvedilol, amlodipine, hydralazine. Follow and titrate Rx. CKD IV Serum creatinine 2.9 compared to 3.1 last week. Follow labs, volume status. Avoid potential nephrotoxins when able. DM TYPE 2 Continue usual dose of Novolin N. Substitute Novolin R with NovoLog during hospital stay. REPORTED DARK STOOLS May be secondary to Fe. Check stools for OB. VTE PROPHYLAXIS Moderate risk for VTE. SQ heparin. Ambulate. RESUSCITATION STATUS Discussed with patient. She does not have a living will, but has discussed her wishes with her spouse. She would like resuscitation attempted in the event of a cardiopulmonary arrest if there is a reasonable chance of a meaningful recovery, but does not want prolonged extraordinary measures if prognosis is poor. Therefore, code status = "Level 1" (full resuscitation). DISPOSITION Admit to Telemetry Unit. Expected discharge to home. Internal Medicine follow-up with Dr. Yanet Golden. Cardiology follow-up with Radha Harden PA-C. Nephrology follow-up with Dr. Escoto. . VTE Prophylaxis Risk Level: Moderate Given or contraindicated: Unfractionated heparin SQ
[2016-06-24] MEDS ORDERED: ACETAMINOPHEN 325 MG TAB PO PRN ×2 (19:30→21:00)
[2016-06-24] MEDS ORDERED: NITROGLYCERIN 0.4 MG SL PER TAB CHARGE SL PRN (19:30)
[2016-06-24 19:45] LABS: INR 0.9 (0.9-1.1); PARTIAL THROMBOPLASTIN RATIO 1.1
[2016-06-24] MEDS ORDERED: INSU0.01 SC (20:28)
[2016-06-24] MEDS ORDERED: SIMV-150 PO (20:28)
[2016-06-24] MEDS ORDERED: DOCU100C31 PO (20:28)
[2016-06-24] MEDS ORDERED: FERR1TAB62 PO (20:28)
[2016-06-24] MEDS ORDERED: NRV/10 PO (20:28)
[2016-06-24] MEDS ORDERED: ZOLPIDEM TARTRATE 5 MG TAB PO PRN (21:00)
[2016-06-24] MEDS ORDERED: MECLIZINE HCL 25 MG TAB PO PRN (21:00)
[2016-06-24] MEDS ORDERED: INSU1INJ16 SQ (21:05)
[2016-06-24 21:07] VITALS: BP_SYST 203; BP_SYST 217; BP_DIAS 73; BP_DIAS 74; PULSE 91; TEMP 36.7; O2SAT 96; BMI 42.0
[2016-06-24] MEDS: CARVEDILOL 6.25 MG TAB PO SCH (21:46)
[2016-06-24] MEDS: DOCUSATE SODIUM 100 MG CAP PO SCH (22:06)
[2016-06-24] MEDS: INSULIN ASPART 100 UNITS/ML 3 ML PEN SC SCH (22:16)
[2016-06-24] MEDS: INSULIN HUMAN NPH SC SCH (22:16)
[2016-06-24] MEDS: HEPARIN SOD 5000 UNIT/0.5 ML CARP SQ SCH (22:17)
[2016-06-24 23:41] VITALS: BP 153/69; PULSE 87; TEMP 36.9; O2SAT 94
[2016-06-25] VITALS (9 sets, daily range): BP systolic 132–185; BP diastolic 63–72; PULSE 68–72; TEMP 36.7–37; O2SAT 93–95
[2016-06-25] MEDS: INSULIN ASPART 100 UNITS/ML 3 ML PEN SC SCH ×4 (07:00→20:24)
[2016-06-25] MEDS: CALCIUM 600MG + VIT D 400 IU TAB PO SCH (09:17)
[2016-06-25] MEDS: AMLODIPINE BESYLATE 5 MG TAB PO SCH (09:17)
[2016-06-25] MEDS: ASPIRIN 81 MG ECTAB PO SCH (09:18)
[2016-06-25] MEDS: MAGNESIUM OXIDE 400 MG TAB PO SCH (09:18)
[2016-06-25] MEDS: PANTOprazole SOD 40 MG TAB PO SCH (09:19)
[2016-06-25] MEDS: SIMVASTATIN 10 MG TAB PO SCH (09:19)
[2016-06-25] MEDS: DOCUSATE SODIUM 100 MG CAP PO SCH ×2 (09:20→20:29)
[2016-06-25] MEDS: CARVEDILOL 6.25 MG TAB PO SCH ×2 (09:24→20:34)
[2016-06-25] MEDS: INSULIN HUMAN NPH SC SCH ×2 (09:27→20:31)
[2016-06-25] MEDS: HEPARIN SOD 5000 UNIT/0.5 ML CARP SQ SCH ×2 (09:28→20:32)
--- NOTE | 2016-06-25 10:09 | NEPHROLOGY CONSULTATION ---
DATE OF CONSULTATION: 06/25/2016 ATTENDING OF RECORD: Dr. Vázquez. REASON FOR CONSULTATION: Volume overload and CKD. HISTORY OF PRESENT ILLNESS: This is a 66-year-old female, followed by me in my outpatient clinic for CKD stage IV with underlying diabetes and hypertension. The patient was recently in the hospital, in the beginning of June, for GARETH on CKD, where we held Lasix and gave fluids and was discharged off diuretics. The patient, though, has had worsening shortness of breath over the last several days and was brought back into the Emergency Room and subsequently admitted. The patient was given a dose of Lasix last night, still having difficulty with breathing with exertion, is tired, has a decreased appetite and is noticing worsening abdominal distention. PAST MEDICAL HISTORY: CKD stage IV, type 2 diabetes, hyperlipidemia, hypertension, obstructive sleep apnea, on CPAP. PAST SURGICAL HISTORY: A knee replacement in the past. FAMILY HISTORY: Significant for kidney disease in mother. SOCIAL HISTORY: No smoking, no alcohol, no drugs. Lives at home with . CURRENT MEDICATIONS: Aspirin 81 mg a day, Caltrate 1 tab daily, magnesium 400 mg daily, Zocor 10 mg daily, Norvasc 10 mg daily, Protonix 40 mg daily, heparin 5,000 units subQ q.12h., Coreg 6.25 mg p.o. b.i.d., Colace 100 mg p.o. b.i.d., hydralazine 50 mg p.o. b.i.d., NPH 55 units subQ q. 12h., sliding scale insulin. REVIEW OF SYSTEMS: Denies any fevers or chills. Does suffer from chronic headaches. Does have blurry vision when having blood sugar issues. No dysphagia. No chest pain. No nausea, vomiting, no diarrhea or constipation, no dysuria or hematuria. Does have shortness of breath with exertion as well as worsening abdominal distention. No rash or itching. All other review of systems, otherwise, negative. PHYSICAL EXAMINATION: VITAL SIGNS: Temperature 36.7, pulse 70, respiratory rate 19, blood pressure 146/63, satting 93% on room air. I's and O's 400 in, 1000 out. GENERAL: Awake, alert, oriented x3, obese. EYES: No scleral icterus. ENT: Moist mucous membranes. NECK: Supple. PULMONARY: Clear to auscultation. CARDIAC: Distant heart sounds. ABDOMEN: Distended; however, still soft, nontender, good bowel sounds. EXTREMITIES: No significant clubbing, cyanosis or edema. NEUROLOGICALLY: Nonfocal. DERM: No rash or ulcers noted. LABORATORY DATA: Sodium was 147, potassium 5.1, chloride is 19, bicarbonate is 21, BUN is 39, creatinine is 2.9, glucose 203, calcium is 8.2. ProBNP elevated at 2544, albumin is 2.7. White count is 8.1, H\T\H 8.5 and 26.8, platelet count is 235. INR is 0.9. UA with pH of 5, specific gravity 1.018, 3+ protein, 1+ glucose. Urine culture is pending. Chest x-ray showed a small right pleural effusion, persistent right basilar airspace opacities and venous Dopplers were negative. ASSESSMENT AND PLAN: Acute kidney injury on chronic kidney disease stage IV. Baseline creatinine was in the low 2s and presented during last hospitalization in the low 3s and is still in the low 3s, despite holding diuretics. It appears to be at a new baseline. The patient does have underlying diabetes and hypertension; however, no tobacco, no NSAIDs. Renal ultrasound from 2013 showed a right kidney of 13.2 cm and left kidney of 11.3 cm with normal size and echogenicity. A renal ultrasound done this month showed a right kidney of 12.8 cm, a left kidney of 10.9 cm with [id number] renal cortical thinning. The patient did have an echo in 2014. I feel worthwhile to repeat the echo screening for pulmonary hypertension. Does have obstructive sleep apnea, on CPAP already and has been noticing worsening abdominal distention, which I feel is contributing to patient's shortness of breath. The patient's albumin levels are below 3 and hemoglobin levels are below 10, both of which could be dilutional in nature. I feel worthwhile to repeat the echo and continue albumin with Lasix to try to help mobilize the third space fluid. Given the patient's obesity, one should always be concerned for nonalcoholic steatohepatitis and we will follow liver enzymes. For now, would continue diuretics and follow kidney function. No role for emergent dialysis at this time. The patient's potassium levels are elevated and we will make sure patient is on a renal diet and hopefully, with the Lasix, potassium levels start to trend down. Appreciate consultation. BORIS
--- NOTE | 2016-06-25 10:41 | ECHOCARDIOGRAM REPORT ---
*NOTICE TO RECEIVING [employer] This information is strictly Confidential and protected under [place] law. [place] law prohibits you from making any further disclosure of this information unless further disclosure is expressly permitted by the written consent of the person to whom it pertains or is authorized by law. A general authorization for the release of medical or other information is not sufficient for this purpose. Hospital accepts no responsibility if the information is made available to any other person, INCLUDING THE PATIENT. Interpretation Summary * Name: EDDY ARANGO Study Date: 06/25/2016 09:09 AM BP: 146/63 mmHg * Patient Location: C.2T\S\S244\S\1 HR: 71 * : 1950 (M/d/yyyy) Gender: Female Height: 60 in * Age: 66 yrs Ethnicity: CA Weight: 213 lb * Ordering Physician: Rukhsana Escoto * Referring Physician: Rukhsana Escoto I. * Performed By: Rina Finn RCS * * Reason For Study: CHF / SCREEN FOR PULMONARY HTN * BSA: 1.9 m2 * -- Conclusions -- * Normal LV chamber size with moderate concentric LVH. * Normal LV systolic function, EF 60-65%. * No segmental left ventricular wall motion abnormalities are noted. * Grade I diastolic dysfunction. * Aortic valve sclerosis mild, without significant aortic valvular stenosis. * Calcified mitral apparatus. There is severe mitral annular calcification. There is no mitral regurgitation noted. * There is no mitral valve stenosis. * MIld tricuspid regurgitation. * Pulmonary hypertension is present with a PASP of 44 mmHg assuming a RA pressure of 3 mmHg. * Moderate left atrial enlargement. Procedure Details * A complete two-dimensional transthoracic echocardiogram was performed (2D, M-mode, Doppler and color flow Doppler). Left Ventricle * The left ventricle is normal in size. * There is moderate concentric left ventricular hypertrophy. * Ejection Fraction = 60-65%. * Left ventricular systolic function is normal. * No segmental left ventricular wall motion abnormalities are noted. * The left ventricular wall motion is normal. Right Ventricle * The right ventricular cavity size is normal (basal dimension <4.2 cm in right ventricular apical 4-chamber view). * The right ventricular systolic function is normal as assessed by tricuspid annular plane systolic excursion (TAPSE) (normal >1.5 cm). Atria * The left atrium is moderately dilated. * Right atrial size is normal. * No ASD detected; PFO is not assessed. Mitral Valve * Calcified mitral apparatus. * There is severe mitral annular calcification. * There is no mitral valve stenosis. * There is no mitral regurgitation noted. Tricuspid Valve * The tricuspid valve anatomy is normal. * There is no tricuspid stenosis. * There is mild tricuspid regurgitation. Aortic Valve * The aortic valve is trileaflet. * Aortic valve sclerosis mild, without significant aortic valvular stenosis. * No hemodynamically significant valvular aortic stenosis. * There is no significant aortic regurgitation. Pulmonic Valve * The pulmonary valve is not well seen, but the Doppler examination is normal without significant regurgitation or stenosis. Great Vessels * The aortic root is normal size. Pericardium/Pleural * There is no pericardial effusion. Left Ventricular Diastolic Function * Grade I diastolic dysfunction, (abnormal relaxation pattern). MMode 2D Measurements and Calculations IVSd 1.6 cm IVSs 1.7 cm LVIDd 5.1 cm LVIDs 3.4 cm LVPWd 1.4 cm LVPWs 1.9 cm IVS/LVPW 1.1 FS 34.0 % EDV(Teich) 125.4 ml ESV(Teich) 46.9 ml EF(Teich) 62.6 % EDV(cubed) 134.8 ml ESV(cubed) 38.8 ml EF(cubed) 71.2 % % IVS thick 1.3 % % LVPW thick 28.5 % LV mass(C)d 350.6 grams LV mass(C)dI 182.9 grams/m\S\2 LV mass(C)s 243.0 grams LV mass(C)sI 126.8 grams/m\S\2 SV(Teich) 78.4 ml SI(Teich) 40.9 ml/m\S\2 SV(cubed) 96.0 ml SI(cubed) 50.1 ml/m\S\2 Ao root diam 2.9 cm Ao root area 6.7 cm\S\2 ACS 1.7 cm LA dimension 3.8 cm LA/Ao 1.3 LVAd ap4 25.6 cm\S\2 LVLd ap4 7.5 cm EDV(MOD-sp4) 70.9 ml EDV(sp4-el) 73.5 ml LVAs ap4 16.5 cm\S\2 LVLs ap4 6.8 cm ESV(MOD-sp4) 33.7 ml ESV(sp4-el) 34.1 ml EF(MOD-sp4) 52.5 % EF(sp4-el) 53.7 % LVAd ap2 29.2 cm\S\2 LVLd ap2 7.4 cm EDV(MOD-sp2) 91.1 ml EDV(sp2-el) 97.4 ml LVAs ap2 18.7 cm\S\2 LVLs ap2 6.3 cm ESV(MOD-sp2) 44.6 ml ESV(sp2-el) 47.0 ml EF(MOD-sp2) 51.1 % EF(sp2-el) 51.8 % LVLd %diff -1.54 % EDV(MOD-bp) 80.6 ml LVLs %diff -7.48 % ESV(MOD-bp) 37.0 ml EF(MOD-bp) 54.1 % SV(MOD-sp4) 37.2 ml SI(MOD-sp4) 19.4 ml/m\S\2 SV(MOD-sp2) 46.6 ml SI(MOD-sp2) 24.3 ml/m\S\2 SV(MOD-bp) 43.6 ml SI(MOD-bp) 22.8 ml/m\S\2 SV(sp4-el) 39.4 ml SI(sp4-el) 20.6 ml/m\S\2 SV(sp2-el) 50.4 ml SI(sp2-el) 26.3 ml/m\S\2 Doppler Measurements and Calculations MV E max janet 134.8 cm/sec MV A max janet 165.0 cm/sec MV E/A 0.82 MV P1/2t max janet 147.1 cm/sec MV P1/2t 68.3 msec MVA(P1/2t) 3.2 cm\S\2 MV dec slope 630.5 cm/sec\S\2 MV dec time 0.24 sec Ao V2 max 216.6 cm/sec Ao max PG 18.8 mmHg Ao max PG (full) 10.0 mmHg LV V1 max PG 8.7 mmHg LV V1 max 147.8 cm/sec PA V2 max 127.1 cm/sec PA max PG 6.5 mmHg TR max janet 320.2 cm/sec
[2016-06-25 12:09] LABS: HEMATOCRIT 24.7 % (37-47); MEAN CELL VOLUME 88.5 fL (80-100); MEAN CORPUSCULAR HEMOGLOBIN 29.7 pg (25-34); MEAN CORPUSCULAR HGB CONC 33.6 g/dl (32-36); MEAN PLATELET VOLUME 10.1 fL (7.4-10.4); PLATELET COUNT 222 K/uL (130-400); RED BLOOD COUNT 2.79 M/uL (4.2-5.4); WHITE BLOOD COUNT 7.75 K/uL (4.8-10.8)
[2016-06-25] MEDS: ALBUMIN 25% 50 ML with FUROSEMIDE INJ 40 MG IV SCH ×4 (12:26→20:33)
[2016-06-25 12:51] LABS: BUN/CREATININE RATIO 15.3 (10-20); CALCIUM 8.2 mg/dl (8.5-10.1); CREATININE 2.6 mg/dl (0.60-1.20); POTASSIUM 5.2 mmol/L (3.5-5.1)
--- NOTE | 2016-06-25 16:14 | CARDIOLOGY CONSULTATION ---
DATE OF CONSULTATION: 06/25/2016 CONSULTATION REQUESTED BY: Dr. Vázquez. REASON FOR CONSULTATION: Volume overload. HISTORY OF PRESENT ILLNESS: Ms. Urrutia is a very pleasant 66-year-old woman who presented to [facility] on 06/24/2016 with a complain of dyspnea on exertion. The patient states that for the last 2 days, she has been getting very winded even with the most minimal exertion. She states that with walking across the floor to the bathroom would make her very short of breath and she would feel herself start to wheeze. She has also noticed some increase in abdominal girth and she notes a 5-pound weight gain in the last 2 days. Upon presentation, she was given IV diuretics with significant diuresis. Of note, the patient does have a longstanding history of chronic kidney disease and her standard diuretic regimen was recently held after urinary tract infection caused acute on chronic renal failure. PAST SURGICAL HISTORY: 1. Bilateral total knee replacements. 2. . 3. Multiple colonoscopies. 4. Eye injections. 5. Cataract surgeries. 6. Shoulder surgery. 7. Hysterectomy. 8. Laparoscopic cholecystectomy. MEDICAL ILLNESSES: 1. Stage IV chronic kidney disease. 2. Obesity. 3. Obstructive sleep apnea. 4. Diabetes. 5. Interstitial lung disease. 6. Hypertension. FAMILY HISTORY: Noncontributory. SOCIAL HISTORY: The patient denies any alcohol, tobacco or recreational drug use. She lives at home with her . REVIEW OF SYSTEMS: As per HPI, all other review of systems were reviewed and negative at this time. ALLERGIES: 1. MORPHINE. 2. CODEINE COUGH SYRUP. 3. ACTOS. MEDICATIONS AN OUTPATIENT: 1. Aspirin 81 mg daily. 2. Zocor 10 mg daily. 3. Lasix 20 mg as needed. 4. Amlodipine 10 mg daily. 5. Hydralazine 50 mg three times a day. 6. Magnesium oxide daily. 7. Insulin as directed. 8. Protonix daily. 9. Iron daily. 10. Imitrex as needed. 11. Coreg 6.25 mg p.o. b.i.d. PHYSICAL EXAMINATION: VITALS: Temperature 37, pulse 72, respiratory rate 12, and blood pressure 166/72. GENERAL: Awake, alert, and oriented x3, in no acute distress. HEENT: Normocephalic and atraumatic. Pupils equal, round, and reactive to light and accommodation. Extraocular muscles are intact. Anicteric sclerae. Moist mucous membranes. NECK: No JVD and no bruit. CARDIOVASCULAR: Regular, but distant. Unable to appreciate murmurs, rubs or gallops. PULMONARY: Clear to auscultation bilaterally. No rales, rhonchi, or wheezing. ABDOMEN: Distended, bowel sounds x4. No rebound, guarding, or tenderness. No organomegaly. EXTREMITIES: No clubbing, cyanosis or edema. +2 pedal pulses bilaterally. SKIN: Warm and dry. TEST RESULTS: 2D echocardiogram performed today, was read as normal LV chamber size with moderate concentric LVH, normal LV systolic function, EF 60%-65%. No segmental left ventricular wall motion abnormalities were noted. Grade 1 diastolic dysfunction, mild aortic valve sclerosis without stenosis, calcified mitral apparatus, severe mitral annular calcification without stenosis or regurgitation, mild tricuspid regurgitation, pulmonary hypertension is present with a pulmonary artery systolic pressure of 44 mmHg assuming a right atrial pressure of 3 mmHg, and moderate left atrial enlargement. IMPRESSION: 1. Volume overload. 2. Diastolic dysfunction. 3. Stage IV chronic kidney disease. 4. Obesity. 5. Pulmonary hypertension with likely obesity hypoventilation. 6. Obstructive sleep apnea. 7. Hypertension. 8. Calcified valvular heart disease. RECOMMENDATIONS: It was my pleasure to see Mrs. Urrutia in consultation today. Given the patient is volume overload, I believe it is most likely due to her being off her diuretics for a while, but there could also be a diastolic component to it. I believe the most prudent course of action is for aggressive diuresis, which has been undertaken by our nephrology colleagues and I will actually leave this to their discretion. Otherwise, should her shortness of breath not improve with diuresis, then we could consider inpatient ischemic evaluation; however, should it resolve, then I believe an outpatient 2-day Lexiscan nuclear stress test would be appropriate given her multiple risk factors for coronary artery disease. Otherwise, no other medication changes will be made at this time. Thank you very much for allowing me to participate in the care of your patient. BORIS
--- NOTE | 2016-06-25 22:54 | Progress Note ---
Internal Med Progress Note Date of Service: June 25, 2016. Provider Documentation: SUBJECTIVE: on CPAP mention of having continued SOB and MENDOZA today symptom mildly improved since yesterday OBJECTIVE: Vital Signs-as noted below Exam: General-no sign of distress, pleasant ENT-on CPAP Lungs-diminished, rales at base Heart-regular S1/S2 Abdomen-soft, non tender Extremities-+ 1 bilateral lower ext edema Neuro-AAO x3, no focal deficit Lab data as noted below. ASSESSMENT & PLAN: ACUTE CHF WITH DIASTOLIC DYSFUNCTION -presented with SOB , MENDOZA , evidence of vol overload Lasix was recently held due to worsening renal function. Probable acute on chronic left ventricular diastolic heart failure. BNP elevated. repeat ECHO : Normal LV chamber size with moderate concentric LVH. * Normal LV systolic function, EF 60-65%. * No segmental left ventricular wall motion abnormalities are noted. * Grade I diastolic dysfunction. symptom improved with IV Lasix Cardiology input appreciated HYPERTENSION Continue carvedilol, amlodipine, hydralazine. getting IV Lasix Follow and titrate Rx. CKD IV Serum creatinine 2.9 compared to 3.1 last week. monitor PRP closely while getting diuresis nephrology consulted DM TYPE 2 Continue usual dose of Novolin N. Substitute Novolin R with NovoLog during hospital stay. recent hb A1c 8.9 VTE PROPHYLAXIS Moderate risk for VTE. SQ heparin. Ambulate. RESUSCITATION STATUS , code status = "Level 1" (full resuscitation). DISPOSITION Expected discharge to home. PT/OT eval prior to discharge home Internal Medicine follow-up with Dr. Yanet Gloden. Cardiology follow-up with Radha Harden PA-C. Nephrology follow-up with Dr. Escoto. DVT PROPHYLAXIS [] DISPOSITION [] Vital Signs: Date Time Temp Pulse Resp B/P Pulse Ox O2 Delivery O2 Flow Rate FiO2 06/26/16 19:54 36.7 70 20 171/77 95 Room Air 06/26/16 16:00 Room Air 06/26/16 16:00 36.6 64 20 152/70 96 Room Air 06/26/16 12:00 97 Room Air 21 06/26/16 11:20 36.5 59 20 149/66 96 Room Air 06/26/16 08:00 97 Room Air 21 06/26/16 07:47 36.8 65 20 172/73 97 Room Air 06/26/16 04:00 CPAP 06/26/16 03:40 36.8 62 20 152/73 95 CPAP 06/26/16 00:00 Room Air 06/25/16 23:10 72 95 21 06/25/16 22:59 36.9 70 18 159/68 93 Room Air Lab Results: Results Past 24 Hours Test 06/26/16 00:00 06/26/16 05:50 06/26/16 06:44 06/26/16 11:20 Range/Units Stool Occult Blood NEGATIVE NEGATIVE White Blood Count 7.75 4.8-10.8 K/uL Red Blood Count 2.71 4.2-5.4 M/uL Hemoglobin 8.0 12.0-16.0 g/dL Hematocrit 24.0 37-47 % Mean Corpuscular Volume 88.6 80-100 fL Mean Corpuscular Hemoglobin 29.5 25-34 pg Mean Corpuscular Hemoglobin Concent 33.3 32-36 g/dl RDW Standard Deviation 47.7 36.4-46.3 fL RDW Coefficient of Variation 14.9 11.5-14.5 % Platelet Count 242 130-400 K/uL Mean Platelet Volume 9.9 7.4-10.4 fL Sodium Level 145 136-145 mmol/L Potassium Level 4.7 3.5-5.1 mmol/L Chloride Level 115 98-107 mmol/L Carbon Dioxide Level 21 21-32 mmol/L Anion Gap 9.0 3-11 mmol/L Blood Urea Nitrogen 43 7-18 mg/dl Creatinine 3.10 0.60-1.20 mg/dl Est Creatinine Clear Calc Drug Dose 18.4 ml/min Estimated GFR () 17.2 Estimated GFR (Non- 14.8 BUN/Creatinine Ratio 13.9 10-20 Random Glucose 80 70-99 mg/dl Calcium Level 8.3 8.5-10.1 mg/dl Bedside Glucose 73 54 70-90 mg/dl Test 06/26/16 12:44 06/26/16 16:40 06/26/16 20:07 Range/Units Bedside Glucose 83 98 110 70-90 mg/dl
[2016-06-26] VITALS (7 sets, daily range): BP systolic 149–172; BP diastolic 66–77; PULSE 59–70; TEMP 36.5–36.8; O2SAT 95–97; BMI 41.8
[2016-06-26 06:25] LABS: MEAN CELL VOLUME 88.6 fL (80-100); MEAN CORPUSCULAR HEMOGLOBIN 29.5 pg (25-34); MEAN CORPUSCULAR HGB CONC 33.3 g/dl (32-36); MEAN PLATELET VOLUME 9.9 fL (7.4-10.4); PLATELET COUNT 242 K/uL (130-400); RED BLOOD COUNT 2.71 M/uL (4.2-5.4); WHITE BLOOD COUNT 7.75 K/uL (4.8-10.8)
[2016-06-26 06:55] LABS: BUN/CREATININE RATIO 13.9 (10-20); CALCIUM 8.3 mg/dl (8.5-10.1); CREATININE 3.1 mg/dl (0.60-1.20); POTASSIUM 4.7 mmol/L (3.5-5.1)
[2016-06-26] MEDS: INSULIN ASPART 100 UNITS/ML 3 ML PEN SC SCH ×4 (07:00→21:00)
[2016-06-26] MEDS: ASPIRIN 81 MG ECTAB PO SCH (08:29)
[2016-06-26] MEDS: CARVEDILOL 6.25 MG TAB PO SCH ×2 (08:29→20:03)
[2016-06-26] MEDS: AMLODIPINE BESYLATE 5 MG TAB PO SCH (08:29)
[2016-06-26] MEDS: DOCUSATE SODIUM 100 MG CAP PO SCH ×2 (08:30→20:03)
[2016-06-26] MEDS: MAGNESIUM OXIDE 400 MG TAB PO SCH (08:30)
[2016-06-26] MEDS: PANTOprazole SOD 40 MG TAB PO SCH (08:31)
[2016-06-26] MEDS: SIMVASTATIN 10 MG TAB PO SCH (08:31)
[2016-06-26] MEDS: CALCIUM 600MG + VIT D 400 IU TAB PO SCH (08:31)
[2016-06-26] MEDS: HEPARIN SOD 5000 UNIT/0.5 ML CARP SQ SCH ×2 (08:38→21:14)
[2016-06-26] MEDS: INSULIN HUMAN NPH SC SCH (08:39)
[2016-06-26] MEDS: ALBUMIN 25% 50 ML with FUROSEMIDE INJ 40 MG IV SCH ×4 (08:40→21:10)
[2016-06-26] MEDS ORDERED: ISOSORBIDE MONONITRATE 30 MG TABCR PO ONE (09:15)
[2016-06-26] MEDS ORDERED: PHARMACY GLYCEMIC MGMT CONSULT PRN (12:44)
--- NOTE | 2016-06-26 13:50 | Pharmacy Progress Note ---
Glycemic Control Intl Consult Date of Service June 26, 2016. Scope Glycemic Pharmacist consulted for glycemic control and to write orders per [facility] inpatient glycemic control protocol Objective Weight (Kilograms): 97.100 Accuchecks BSG (last 24hrs): Test 06/25/16 16:08 06/25/16 20:14 06/26/16 05:50 06/26/16 06:44 Bedside Glucose 91 mg/dl (70-90) 139 mg/dl (70-90) 73 mg/dl (70-90) Random Glucose 80 mg/dl (70-99) Test 06/26/16 11:20 06/26/16 12:44 Bedside Glucose 54 mg/dl (70-90) 83 mg/dl (70-90) Laboratory Data (last 24hrs) Test 06/26/16 05:50 Anion Gap 9.0 mmol/L BUN/Creatinine Ratio 13.9 Blood Urea Nitrogen 43 mg/dl Creatinine 3.10 mg/dl Potassium Level 4.7 mmol/L Sodium Level 145 mmol/L White Blood Count 7.75 K/uL Recent Pertinent Medications Outpatient Anti-diabetic Regimen: * Novolin N 55 units SC q12 * Novolin R ACHS * A1c = 8.9 % on 06/10/16 The patient is currently receiving: * Basal insulin: NPH 55 units every 12 hours * Correctional Insulin: Novolog Correction per scale ACHS Goal Range: Low 140 mg/dL - High 180 mg/dL Correction Factor: 20 mg/dL/unit * Prandial insulin: Per carb ratio of 1 unit per 10 grams CHO consumed Risk Factors for Insulin Resistance: * Diet: T2DM/renal Assessment & Plan ASSESSMENT: * ADA & AACE recommend a goal blood sugar range 140-180 mg/dl for the majority of critically ill & non-critically ill patients. However, more stringent targets may be selected in individual cases. 06/26/16 * 66 yo F well-known to our service admitted 06/24 for CHF exacerbation. Pharmacy consulted for glycemic management 06/26 2nd hypoglycemia. * Hypoglycemia due to regimen weighted heavily towards basal. Minimal Novolog administered while inpatient. None since 06/25 with dinner. * NPH also not best for inpatient management. Multiple previous admissions where patient has been on Lantus instead. * Will significantly decrease basal (starting tonight) and switch from NPH to Lantus * Will significantly tighten CHO ratio (starting tomorrow) to compensate for less basal insulin PLAN FOR INPATIENT GLYCEMIC CONTROL: * Basal insulin with LANTUS 25 units SQ BID (15 units for BSG < 100 mg/dL) * Correctional Insulin with NOVOLOG per scale ACHS or Q6hrs while NPO * Goal Range: Low 120 mg/dL - High 150 mg/dL * Correction Factor: 15 mg/dL/unit * Nutritional / Prandial insulin per carb ratio of 1 unit per 5 grams CHO consumed * Please note that the plan above was derived based on current level of insulin resistance and hospital stress. These recommendations are appropriate for inpatient admission only. Plan of care upon discharge will need to be reassessed to avoid potential outpatient hypo/hyperglycemia. Thank you.
[2016-06-26] MEDS: INSULIN GLARGINE SOLOSTAR 100 UNITS/ML 3 ML PEN SC SCH (21:13)
--- NOTE | 2016-06-26 21:59 | Progress Note ---
Internal Med Progress Note Date of Service: June 26, 2016. Provider Documentation: SUBJECTIVE: feels much better today minimum SOB /MENDOZA , no orthopnea bilat lower ext edema improved OBJECTIVE: Vital Signs-as noted below Exam: General-no sign of distress, pleasant ENT-on CPAP Lungs-diminished, rales at base Heart-regular S1/S2 Abdomen-soft, non tender Extremities-+ 1 bilateral lower ext edema Neuro-AAO x3, no focal deficit Lab data as noted below. ASSESSMENT & PLAN: ACUTE CHF WITH DIASTOLIC DYSFUNCTION -improved after Diuresis with IV Lasix pt is negative balance of approx ~2 L -presented with SOB , MENDOZA , evidence of vol overload Lasix was recently held due to worsening renal function. acute on chronic left ventricular diastolic heart failure. BNP elevated. repeat ECHO : Normal LV chamber size with moderate concentric LVH. * Normal LV systolic function, EF 60-65%. * No segmental left ventricular wall motion abnormalities are noted. * Grade I diastolic dysfunction. symptom improved with IV Lasix Cardiology input appreciated pt will be continued with Lasix plan to transition to PO tomorrow need to be discharged on Oral Lasix out pt follow up with Cardiology and possible Lexiscan Nc stress test to assess for CAD HYPERTENSION Continue carvedilol, amlodipine, hydralazine. getting IV Lasix Follow and titrate Rx. CKD IV Cr remains in ~3 possible baseline monitor PRP closely while getting diuresis nephrology consulted -appreciate input DM TYPE 2 having episodes of hypoglycemia in AM appreciate Pharmacy consult for glycemic control NPH changed to Lantus for better titration Basal dose reduced to prevent AM hypoglycemia cont to monitor BSG on insulin SSI recent hb A1c 8.9 VTE PROPHYLAXIS Moderate risk for VTE. SQ heparin. Ambulate. RESUSCITATION STATUS , code status = "Level 1" (full resuscitation). DISPOSITION possible discharge home tomorrow after cardiology and Nephrology eval . already has home health arrangement through [facility] Internal Medicine follow-up with Dr. Yanet Golden. Cardiology follow-up with Radha Harden PA-C. Nephrology follow-up with Dr. Escoto. Vital Signs: Date Time Temp Pulse Resp B/P Pulse Ox O2 Delivery O2 Flow Rate FiO2 06/26/16 19:54 36.7 70 20 171/77 95 Room Air 06/26/16 16:00 Room Air 06/26/16 16:00 36.6 64 20 152/70 96 Room Air 06/26/16 12:00 97 Room Air 21 06/26/16 11:20 36.5 59 20 149/66 96 Room Air 06/26/16 08:00 97 Room Air 21 06/26/16 07:47 36.8 65 20 172/73 97 Room Air 06/26/16 04:00 CPAP 06/26/16 03:40 36.8 62 20 152/73 95 CPAP 06/26/16 00:00 Room Air 06/25/16 23:10 72 95 21 06/25/16 22:59 36.9 70 18 159/68 93 Room Air Lab Results: Results Past 24 Hours Test 06/26/16 00:00 06/26/16 05:50 06/26/16 06:44 06/26/16 11:20 Range/Units Stool Occult Blood NEGATIVE NEGATIVE White Blood Count 7.75 4.8-10.8 K/uL Red Blood Count 2.71 4.2-5.4 M/uL Hemoglobin 8.0 12.0-16.0 g/dL Hematocrit 24.0 37-47 % Mean Corpuscular Volume 88.6 80-100 fL Mean Corpuscular Hemoglobin 29.5 25-34 pg Mean Corpuscular Hemoglobin Concent 33.3 32-36 g/dl RDW Standard Deviation 47.7 36.4-46.3 fL RDW Coefficient of Variation 14.9 11.5-14.5 % Platelet Count 242 130-400 K/uL Mean Platelet Volume 9.9 7.4-10.4 fL Sodium Level 145 136-145 mmol/L Potassium Level 4.7 3.5-5.1 mmol/L Chloride Level 115 98-107 mmol/L Carbon Dioxide Level 21 21-32 mmol/L Anion Gap 9.0 3-11 mmol/L Blood Urea Nitrogen 43 7-18 mg/dl Creatinine 3.10 0.60-1.20 mg/dl Est Creatinine Clear Calc Drug Dose 18.4 ml/min Estimated GFR () 17.2 Estimated GFR (Non- 14.8 BUN/Creatinine Ratio 13.9 10-20 Random Glucose 80 70-99 mg/dl Calcium Level 8.3 8.5-10.1 mg/dl Bedside Glucose 73 54 70-90 mg/dl Test 06/26/16 12:44 06/26/16 16:40 06/26/16 20:07 Range/Units Bedside Glucose 83 98 110 70-90 mg/dl
--- NOTE | 2016-06-26 22:02 | Discharge Instructions ---
Discharge Instructions Date of Service June 26, 2016. Admission Reason for Admission: Diastolic Chf, Acute On Chronic Discharge Discharge Diagnosis / Problem: ACUTE ON CHRONIC DIASTOLIC HEART FAILURE /CKD STAGE 4 Discharge Goals Goal(s): Decrease discomfort, Increase independence, Diagnostic testing, Therapeutic intervention Activity Recommendations Activity Limitations: resume your previous activity . Instructions / Follow-Up Instructions / Follow-Up HOSPITAL FOLLOW UP ON 07/03/2016 @ 11:[address] Yanet Golden MD General Internal Medicine [facility] NEPHROLOGY FOLLOW UP ON 07/17/2016 @ 1:[address] Rukhsana Escoto DO Nephrology, [facility] CARDIOLOGY FOLLOW UP ON 07/01/2016 @ 12:45 PM WITH Radha Harden PA-C Cardiology, [facility] WILL NEED TO HAVE 2 DAYS LEXISCAN /CARDIAC NUCLEAR STRESS TEST , CARDIOLOGY OFFICE WILL SCHEDULE YOU ARE STARTED ON LASIX 40 MG TWICE DAILY . INSULIN DOSE : YOUR INSULIN HAS BEEN CHANGED DO NOT TAKE NPH YOU ARE STARTED ON INSULIN LANTUS SOLOSTAR PEN TAKE 10 UNITS TWICE DAILY ( IN MORNING BEFORE BREAKFAST AND BEFORE DINNER ) PLEASE CHECK YOU BLOOD SUGAR AT 4 TIMES DAILY FASTING ( BEFORE BREAKFAST ) /BEFORE LUNCH /BEFORE DINNER /BEFORE BEDTIME DO NOT GIVE YOURSELF INSULIN IF BLOOD SUGAR LESS THAN 100 KEEP LOG AND BRING IT WITH YOUR NEXT PHYSICIAN APPOINTMENT Call your Primary Care doctor if any of the following symptoms or problems start or get worse: * Shortness of breath or difficulty breathing * Wake up at night short of breath * Chest pain * Cough * Swelling of your hands, feet, or legs * More fatigued or tired with your normal activity * Palpitations - sudden fast heart beats WEIGHT * Weigh yourself every morning after using the bathroom. * Use the same scale. * Wear the same amount of clothing. * Write your weight down on a chart. * Call your Primary Care doctor if you gain more than 2-3 pounds in 1-2 days. MEDICATIONS * Use this discharge instruction sheet for medication instructions. * Take your medications at the time your doctor ordered. * Do not skip a dose of your medicines. * If you miss a dose of medicine, take it as soon as possible, but DO NOT DOUBLE A DOSE. * Read your medicine information when you get home. * Know all of the side effects of your medicine. If in doubt, ask your pharmacist * Call your Primary Care doctor's office if you have any side effects. * Be sure all of your doctors know what medicine and herbs you take (including cold, flu, and herbal medicine). Take the following with you to your follow-up doctor appointments: * Weight Chart * Medication List * List of questions Do not drink excessive alcohol, beer or wine. Current Hospital Diet Patient's current hospital diet: Renal Diet, Diabetes Type 2 Diet Discharge Diet Recommended Diet: AHA Diet (Heart Healthy), Diabetes Type 2 Diet Pending Studies Studies pending at discharge: yes List of pending studies: BASIC METABOLIC PANEL ON Thursday07/01/16 Laboratory Results Hemoglobin A1c Test 06/10/16 06:51 Range/Units Estimated Average Glucose 209 mg/dl Hemoglobin A1c 8.9 H 4.5-5.6 % Medical Emergencies . Who to Call and When: Call 911 or go to the Emergency Room if: * If at any time you feel your situation is an emergency * You have tightness or pain in your chest that does not go away with rest or Nitroglycerin * You are very short of breath even with rest . Non-Emergent Contact Non-Emergency issues call your: Primary Care Provider . . "Provider Documentation" section prepared by Syeda Onofre. . VTE Core Measure Inpt VTE Proph given/why not?: Unfractionated heparin SQ [place] Drug Monitoring Program Search Results: no issues identified
[2016-06-26] MEDS ORDERED: FURO40TA3 PO (22:03)
[2016-06-27] VITALS (9 sets, daily range): BP systolic 126–165; BP diastolic 55–99; PULSE 64–66; TEMP 36.2–36.8; O2SAT 94–98; Ht 152.4 cm; Wt 95.8 kg
[2016-06-27] MEDS: INSULIN ASPART 100 UNITS/ML 3 ML PEN SC SCH ×3 (07:00→17:27)
[2016-06-27 07:05] LABS: HEMATOCRIT 23.6 % (37-47); MEAN CELL VOLUME 87.4 fL (80-100); MEAN CORPUSCULAR HEMOGLOBIN 28.9 pg (25-34); MEAN CORPUSCULAR HGB CONC 33.1 g/dl (32-36); MEAN PLATELET VOLUME 9.8 fL (7.4-10.4); PLATELET COUNT 233 K/uL (130-400); WHITE BLOOD COUNT 8.82 K/uL (4.8-10.8)
[2016-06-27 07:42] LABS: BUN/CREATININE RATIO 15.2 (10-20); CALCIUM 8.1 mg/dl (8.5-10.1); CREATININE 3.6 mg/dl (0.60-1.20); POTASSIUM 4.5 mmol/L (3.5-5.1)
[2016-06-27] MEDS: SIMVASTATIN 10 MG TAB PO SCH (08:47)
[2016-06-27] MEDS: DOCUSATE SODIUM 100 MG CAP PO SCH (08:47)
[2016-06-27] MEDS: CARVEDILOL 6.25 MG TAB PO SCH (08:48)
[2016-06-27] MEDS: MAGNESIUM OXIDE 400 MG TAB PO SCH (08:48)
[2016-06-27] MEDS: ASPIRIN 81 MG ECTAB PO SCH (08:48)
[2016-06-27] MEDS: AMLODIPINE BESYLATE 5 MG TAB PO SCH (08:48)
--- NOTE | 2016-06-27 08:48 | Cardiology Follow-Up ---
Subjective Subjective Date of Service: June 27, 2016. Pt evaluation today including: conversation w/ patient, physical exam, chart review, lab review, review of studies, review of inpatient medication list Additional Details: Pt seen and examined, states that she's breathing better. Denies cp, palpitations, lightheadedness or dizziness. tele reviewed: sinus rhythm without arrhythmia. Problem List Medical Problems: (1) Acute kidney injury Status: Acute (2) Acute renal failure Status: Acute (3) Altered mental status Status: Acute (4) Chronic renal failure Status: Acute (5) Dizziness Status: Acute (6) Fluid overload Status: Acute (7) Heart failure Status: Acute (8) Hypercalcemia Status: Acute (9) Hyperglycemia Status: Acute (10) UTI (urinary tract infection) Status: Acute Review of Systems Respiratory: No cough, No dyspnea at rest, No dyspnea on exertion, No hemoptysis, No problem reported, No see HPI, No shortness of breath, No sputum, No wheezing Cardiac: No PND, No chest pain, No claudication, No edema, No orthopnea, No palpitations, No problem reported, No see HPI Objective Vital Signs Last Vital Signs Documentation Date Time Temp Pulse Resp B/P Pulse Ox O2 Delivery O2 Flow Rate FiO2 06/27/16 04:33 36.8 66 22 155/64 94 Room Air 06/26/16 12:00 21 Physical Exam: General Appearance: no apparent distress, + obese Eyes: bilateral eyes EOMI, bilateral eyes PERRL, bilateral eyes normal inspection ENT: normal ENT inspection, hearing grossly normal, pharynx normal Neck: supple, no adenopathy, thyroid normal, no JVD, no carotid bruits, trachea midline Respiratory/Chest: chest non-tender, lungs clear, normal breath sounds, no respiratory distress, no accessory muscle use Cardiovascular: regular rate, rhythm, + pertinent finding (regular but distant) Abdomen: normal bowel sounds, non tender, no organomegaly, no pulsatile mass, + distended Extremities: normal range of motion, non-tender, normal inspection, no pedal edema, no calf tenderness, + pertinent finding Neurologic/Psychiatric: trim die maker II-XII nml as tested, no motor/sensory deficits, alert, normal mood/affect, oriented x 3 Skin: normal color, warm/dry, no rash Lymphatic: no adenopathy Assessment and Plan 1. sob secondary to volume overload and abdominal bloating lungs clear echocardiogram with normal wall motion and pulmonary hypertension, likely secondary to obesity hypoventilation and glory agree with diuretics as per our nephrology colleagues no further cardiac testing or intervention would perform 2 day Lexiscan nuclear stress as outpatient for completeness sake 2. HTN improved with addition of long acting nitrates to hydralazine ok to d/c from cardiac standpoint.
[2016-06-27] MEDS: PANTOprazole SOD 40 MG TAB PO SCH (08:50)
[2016-06-27] MEDS: CALCIUM 600MG + VIT D 400 IU TAB PO SCH (08:50)
[2016-06-27] MEDS ORDERED: ISOSORBIDE MONONITRATE 30 MG TABCR PO SCH (09:00)
[2016-06-27] MEDS: INSULIN GLARGINE SOLOSTAR 100 UNITS/ML 3 ML PEN SC SCH (09:12)
[2016-06-27] MEDS: HEPARIN SOD 5000 UNIT/0.5 ML CARP SQ SCH (09:12)
[2016-06-27] MEDS: ALBUMIN 25% 50 ML with FUROSEMIDE INJ 40 MG IV SCH ×2 (09:17)
--- NOTE | 2016-06-27 10:08 | Pharmacy Progress Note ---
Glycemic Control: Progress Nt Date of Service June 27, 2016. Scope Glycemic Pharmacist consulted for glycemic control and to write orders per [facility] inpatient glycemic control protocol. Objective Accuchecks BSG (last 24hrs): Test 06/26/16 11:20 06/26/16 12:04 06/26/16 12:44 06/26/16 16:40 Bedside Glucose 54 mg/dl (70-90) 69 mg/dl (70-90) 83 mg/dl (70-90) 98 mg/dl (70-90) Test 06/26/16 20:07 06/27/16 00:32 06/27/16 00:49 06/27/16 01:07 Bedside Glucose 110 mg/dl (70-90) 51 mg/dl (70-90) 55 mg/dl (70-90) 75 mg/dl (70-90) Test 06/27/16 06:43 06/27/16 06:44 Random Glucose 77 mg/dl (70-99) Bedside Glucose 79 mg/dl (70-90) Laboratory Data (last 24hrs) Test 06/27/16 06:43 Anion Gap 10.0 mmol/L BUN/Creatinine Ratio 15.2 Blood Urea Nitrogen 55 mg/dl Creatinine 3.60 mg/dl Potassium Level 4.5 mmol/L Sodium Level 142 mmol/L White Blood Count 8.82 K/uL Recent Pertinent Medications Outpatient Anti-diabetic Regimen: * Novolin N 55 units SC q12 * Novolin R ACHS * A1c = 8.9 % on 06/10/16 The patient is currently receiving: * Basal insulin: Lantus 25 units every 12 hours (15 units for BSG < 100 mg/dL) * Correctional Insulin: Novolog Correction per scale ACHS Goal Range: Low 140 mg/dL - High 180 mg/dL Correction Factor: 20 mg/dL/unit * Prandial insulin: Per carb ratio of 1 unit per 10 grams CHO consumed Risk Factors for Insulin Resistance: * Diet: T2DM/renal Assessment & Plan ASSESSMENT: * ADA & AACE recommend a goal blood sugar range 140-180 mg/dl for the majority of critically ill & non-critically ill patients. However, more stringent targets may be selected in individual cases. 06/26/16 * 66 yo F well-known to our service admitted 06/24 for CHF exacerbation. Pharmacy consulted for glycemic management 06/26 2nd hypoglycemia. * Hypoglycemia due to regimen weighted heavily towards basal. Minimal Novolog administered while inpatient. None since 06/25 with dinner. * NPH also not best for inpatient management. Multiple previous admissions where patient has been on Lantus instead. * Will significantly decrease basal (starting tonight) and switch from NPH to Lantus * Will significantly tighten CHO ratio (starting tomorrow) to compensate for less basal insulin 06/27/16 * Persistent hypoglycemia despite significantly less aggressive regimen as compared to previous admissions. Etiology is likely increased insulin sensitivity 2nd GARETH * AM fasting BSG slightly low today. Will decrease Lantus. * Lunch BSG also low. Will decrease PM Lantus further * Will adjust Novolog sliding scale by increasing goal range and loosening both CF and CR PLAN FOR INPATIENT GLYCEMIC CONTROL: * Basal insulin with LANTUS 10 units SQ BID (0 units for BSG < 100 mg/dL, 5 units for BSG 100-119mg/dL) * Correctional Insulin with NOVOLOG per scale ACHS or Q6hrs while NPO * Goal Range: Low 140 mg/dL - High 180 mg/dL * Correction Factor: 25 mg/dL/unit * Nutritional / Prandial insulin per carb ratio of 1 unit per 10 grams CHO consumed * Please note that the plan above was derived based on current level of insulin resistance and hospital stress. These recommendations are appropriate for inpatient admission only. Plan of care upon discharge will need to be reassessed to avoid potential outpatient hypo/hyperglycemia. Thank you.
[2016-06-27] MEDS ORDERED: INSDGIPEN SC (17:53)
--- NOTE | 2016-06-27 18:09 | Progress Note ---
Internal Med Progress Note Date of Service: June 27, 2016. Provider Documentation: SUBJECTIVE: no complain of SOB , or MENDOZA, no cough able to walk in room with out any discomfort lower ext edema has improved no orthopnea evaluated by cardiology earlier pt diuresed > 4 L since hospitalization stable to be discharged today with PO Lasix 40 mg twice daily OBJECTIVE: Vital Signs-as noted below Exam: General-no sign of distress, pleasant ENT-on CPAP Lungs-diminished, rales at base Heart-regular S1/S2 Abdomen-soft, non tender Extremities-improved lower ext edema Neuro-AAO x3, no focal deficit Lab data as noted below. ASSESSMENT & PLAN: ACUTE CHF WITH DIASTOLIC DYSFUNCTION -improved after Diuresis with IV Lasix pt is negative balance of approx ~4 L -presented with SOB , MENDOZA , evidence of vol overload Lasix was recently held due to worsening renal function. acute on chronic left ventricular diastolic heart failure. BNP elevated. repeat ECHO : Normal LV chamber size with moderate concentric LVH. * Normal LV systolic function, EF 60-65%. * No segmental left ventricular wall motion abnormalities are noted. * Grade I diastolic dysfunction. Cardiology input appreciated pt will be continued with Lasix 40 mg PO BID lab work BMP on 07/01/16 have Cardiology follow up scheduled on Thursday07/01/16 out pt follow up with Cardiology and possible Lexiscan Nc stress test to assess for CAD HYPERTENSION Continue carvedilol, amlodipine, hydralazine. added PO Lasix 40 BID Follow and titrate Rx. CKD IV Cr remains in ~3 possible baseline nephrology consulted -appreciate input pt will be discharged with PO Lasix 40 mg BID repeat BMP next week pt is asked to avoid -Motrin, Aleve, naproxen , Advil DM TYPE 2 having episodes of hypoglycemia in AM appreciate Pharmacy consult for glycemic control NPH changed to Lantus for better titration Basal dose reduced to prevent AM hypoglycemia cont to monitor BSG on insulin SSI recent hb A1c 8.9 pt will be discharged with Lower dose of basal insulin Lantus 10 U bid prior insulin regimen NPH 55 U BID D/rosa pt is asked to check BSG at home 4 Xtimes and keep log will need continued follow up with Family physician VTE PROPHYLAXIS Moderate risk for VTE. SQ heparin. Ambulate. RESUSCITATION STATUS , code status = "Level 1" (full resuscitation). DISPOSITION discharge home today already has home health arrangement through [facility] Internal Medicine follow-up with Dr. Yanet Golden on 07/03/16 Cardiology follow-up with Radha Harden PA-C on 07/01/16 Nephrology follow-up with Dr. Escoto on 07/17/16 Vital Signs: Date Time Temp Pulse Resp B/P Pulse Ox O2 Delivery O2 Flow Rate FiO2 06/27/16 16:00 Room Air 06/27/16 15:58 36.5 64 20 126/61 96 Room Air 06/27/16 13:54 66 98 06/27/16 12:15 36.2 66 20 148/99 98 Room Air 06/27/16 12:00 98 Room Air 06/27/16 08:42 36.6 65 18 165/70 96 Room Air 06/27/16 08:00 94 Room Air 06/27/16 04:33 36.8 66 22 155/64 94 Room Air 06/27/16 04:00 Room Air 06/27/16 00:05 36.8 65 18 137/55 95 CPAP 06/26/16 23:59 Room Air 06/26/16 20:00 Room Air 06/26/16 19:54 36.7 70 20 171/77 95 Room Air Lab Results: Results Past 24 Hours Test 06/26/16 20:07 06/27/16 00:32 06/27/16 00:49 06/27/16 01:07 Range/Units Bedside Glucose 110 51 55 75 70-90 mg/dl Test 06/27/16 06:43 06/27/16 06:44 06/27/16 11:54 06/27/16 12:25 Range/Units White Blood Count 8.82 4.8-10.8 K/uL Red Blood Count 2.70 4.2-5.4 M/uL Hemoglobin 7.8 12.0-16.0 g/dL Hematocrit 23.6 37-47 % Mean Corpuscular Volume 87.4 80-100 fL Mean Corpuscular Hemoglobin 28.9 25-34 pg Mean Corpuscular Hemoglobin Concent 33.1 32-36 g/dl RDW Standard Deviation 46.3 36.4-46.3 fL RDW Coefficient of Variation 14.6 11.5-14.5 % Platelet Count 233 130-400 K/uL Mean Platelet Volume 9.8 7.4-10.4 fL Sodium Level 142 136-145 mmol/L Potassium Level 4.5 3.5-5.1 mmol/L Chloride Level 111 98-107 mmol/L Carbon Dioxide Level 21 21-32 mmol/L Anion Gap 10.0 3-11 mmol/L Blood Urea Nitrogen 55 7-18 mg/dl Creatinine 3.60 0.60-1.20 mg/dl Est Creatinine Clear Calc Drug Dose 15.7 ml/min Estimated GFR () 14.3 Estimated GFR (Non- 12.4 BUN/Creatinine Ratio 15.2 10-20 Random Glucose 77 70-99 mg/dl Calcium Level 8.1 8.5-10.1 mg/dl Bedside Glucose 79 50 85 70-90 mg/dl Test 06/27/16 16:29 Range/Units Bedside Glucose 146 70-90 mg/dl
--- NOTE | 2016-06-27 18:12 | Discharge Summary ---
Discharge Summary Date of Service June 27, 2016. Discharge Summary Admission Date: June 24, 2016 at 19:28 Discharge Date: June 27, 2016 Discharge Disposition: Home with services Principal Diagnosis: ACUTE ON CHRONIC DIASTOLIC HEART FAILURE /CKD STAGE 4 Secondary Diagnoses/Problems: Medical Problems: (1) Anxiety Status: Chronic (2) CKD (chronic kidney disease), stage IV Status: Chronic (3) Depression Status: Chronic (4) Diabetes mellitus, type 2 Status: Chronic (5) GERD (gastroesophageal reflux disease) Status: Chronic (6) Hyperlipidemia Status: Chronic (7) Hypertension Status: Chronic (8) Interstitial lung disease Status: Chronic (9) KUSHAL (obstructive sleep apnea) Permanent Comment: CPAP HS Status: Chronic Surgical Problems: (1) Hx of shoulder surgery Status: Chronic (2) Hx of total knee replacement Status: Chronic Procedures: ECHO : * Normal LV chamber size with moderate concentric LVH. * Normal LV systolic function, EF 60-65%. * No segmental left ventricular wall motion abnormalities are noted. * Grade I diastolic dysfunction. * Aortic valve sclerosis mild, without significant aortic valvular stenosis. * Calcified mitral apparatus. There is severe mitral annular calcification. There is no mitral regurgitation noted. * There is no mitral valve stenosis. Consultations: [facility] DR SONNY CRAFT NEPHROLGY ONCSujey Medication Reconciliation New Medications: Furosemide (Lasix) 40 Mg Tab 40 MG PO BID for 30 Days, #60 TAB 2 Refills Insulin Glargine (Lantus Solostar) 100 Unit/Ml Inj 10 UNITS SC AMPM for 30 Days, #5 PEN 3 Refills Continued Medications: Acetaminophen Tab (Tylenol) 325 Mg Tab 650 MG PO Q6 PRN for Pain, TAB Amlodipine Besylate (Amlodipine Besylate) 10 Mg Tab 10 MG PO DAILY, #90 Aspirin (Aspirin Ec) 81 Mg Tab 81 MG PO DAILY Calcium/Vitamin D (Os-George 500 Plus D) Tab 1 TAB PO DAILY, TAB Carvedilol (Coreg) 6.25 Mg Tab 6.25 MG PO BID, TAB Cholecalciferol (Vitamin D3) 5,000 Unit Tab 1 TAB PO DAILY Docusate Sodium (Docusate Sodium) 100 Mg Cap 1 CAP PO BID for 7 Days, #14 CAP Ferrous Sulfate (Ferrous Sulfate) 325 Mg Tab 325 MG PO BID, #180 Hydralazine Hcl (Apresoline) 50 Mg Tab 50 MG PO BID, TAB Insulin Regular (Human) (Novolin R Relion) 100 Unit/Ml Inj SQ ACHS, #20 PLUS SLIDING SCALE Magnesium Oxide (Mag-Ox) 400 Mg Tab 400 MG PO DAILY, TAB Meclizine Hcl (Meclizine Hcl) 25 Mg Tab 25 MG PO TID PRN for Dizziness or Vertigo, #180 Nystatin (Topical) (Nystatin) 100,000 Unit/Gm Pow 1 APPLN TOP TID, #60 Pantoprazole Sodium (Protonix) 20 Mg Tab 20 MG PO DAILY, #90 Simvastatin (Simvastatin) 10 Mg Tab 10 MG PO DAILY, #90 Sumatriptan Succinate (Imitrex) 25 Mg Tab 25 MG PO PRN UD, #18 Zolpidem Tartrate (Zolpidem Tartrate) 5 Mg Tab 5 MG PO HS PRN for Sleep, #30 Discontinued Medications: Insulin Isophane (Human) (Novolin N Relion) 100 Unit/Ml Inj 55 UNITS SC Q12, #20 PLUS SLIDING SCALE Referrals At Discharge Follow up Referrals: [facility] Referral - 07/17/16 with Rukhsana Escoto I., DO Physician Referral - 07/03/16 with Yanet Golden M.D. Admission Information HPI (per Admitting provider): 66 YO female followed by Dr. Yanet Golden for Internal Medicine and Dr. Escoto for Nephrology. History of hypertension, CKD IV, DM type 2, and other problems noted below. Hospitalized at [facility] 06/09/16 with acute kidney injury superimposed on CKD. Creatinine was 3.1 at the time of admission. Furosemide was held and IV fluids were administered. However, there was no improvement of renal function and creatinine day of discharge was 3.1. Patient was instructed to continue to hold furosemide. Experiencing increasing dyspnea on exertion over last 2 days. No fever. Rare nonproductive cough. Had an episode of chest pressure radiating to her back 2 days prior to admission ; none since. No pleuritic chest pain. No orthopnea. No change of chronic dependent edema. Seen in clinic and referred to ED for further management. . Physical Exam (per Admitting): General Appearance: WD/WN, no apparent distress Head: normocephalic, atraumatic Eyes: normal inspection, PERRL, EOMI, sclerae normal (conjunctivae pink) ENT: normal ENT inspection, hearing grossly normal, pharynx normal Neck: supple, no adenopathy, thyroid normal, no JVD, trachea midline Respiratory/Chest: lungs clear, no respiratory distress, no accessory muscle use Cardiovascular: regular rate, rhythm, normal peripheral pulses, + JVD, + systolic murmur (I/ sys murmur at base), + gallop/S4, + pertinent finding (1+ pretibial edema; capillary refill toes 1-2 sec) Abdomen/GI: normal bowel sounds, non tender, soft, no organomegaly, no pulsatile mass Extremities/Musculoskelatal: no calf tenderness, normal capillary refill, + swelling (1+ pretibial edema) Neurologic/Psych: 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 acute on chronic left ventricular diastolic heart failure. BNP elevated. repeat ECHO : Normal LV chamber size with moderate concentric LVH. * Normal LV systolic function, EF 60-65%. * No segmental left ventricular wall motion abnormalities are noted. * Grade I diastolic dysfunction. Cardiology input appreciated pt will be continued with Lasix 40 mg PO BID lab work BMP on 07/01/16 have Cardiology follow up scheduled on Thursday07/01/16 out pt follow up with Cardiology and possible Lexiscan Nc stress test to assess for CAD HYPERTENSION Continue carvedilol, amlodipine, hydralazine. added PO Lasix 40 BID Follow and titrate Rx. CKD IV Cr remains in ~3 possible baseline nephrology consulted -appreciate input pt will be discharged with PO Lasix 40 mg BID repeat BMP next week pt is asked to avoid -Motrin, Aleve, naproxen , Advil DM TYPE 2 having episodes of hypoglycemia in AM appreciate Pharmacy consult for glycemic control NPH changed to Lantus for better titration Basal dose reduced to prevent AM hypoglycemia cont to monitor BSG on insulin SSI recent hb A1c 8.9 pt will be discharged with Lower dose of basal insulin Lantus 10 U bid prior insulin regimen NPH 55 U BID D/rosa pt is asked to check BSG at home 4 Xtimes and keep log will need continued follow up with Family physician VTE PROPHYLAXIS Moderate risk for VTE. SQ heparin. Ambulate. RESUSCITATION STATUS , code status = "Level 1" (full resuscitation). DISPOSITION discharge home today already has home health arrangement through [facility] Internal Medicine follow-up with Dr. Yanet Golden on 07/03/16 Cardiology follow-up with Radha Harden PA-C on 07/01/16 Nephrology follow-up with Dr. Escoto on 07/17/16 Total time spent on discharge = 40 mins This includes examination of the patient, discharge planning, medication reconciliation, and communication with other providers. Discharge Instructions Discharge Instructions Date of Service June 26, 2016. Admission Reason for Admission: Diastolic Chf, Acute On Chronic Discharge Discharge Diagnosis / Problem: ACUTE ON CHRONIC DIASTOLIC HEART FAILURE /CKD STAGE 4 Discharge Goals Goal(s): Decrease discomfort, Increase independence, Diagnostic testing, Therapeutic intervention Activity Recommendations Activity Limitations: resume your previous activity . Instructions / Follow-Up Instructions / Follow-Up HOSPITAL FOLLOW UP ON 07/03/2016 @ 11:[address] Yanet Golden MD General Internal Medicine [facility] NEPHROLOGY FOLLOW UP ON 07/17/2016 @ 1:[address] Rukhsana Escoto DO Nephrology, [facility] CARDIOLOGY FOLLOW UP ON 07/01/2016 @ 12:45 PM WITH Radha Harden PA-C Cardiology, [facility] WILL NEED TO HAVE 2 DAYS LEXISCAN /CARDIAC NUCLEAR STRESS TEST , CARDIOLOGY OFFICE WILL SCHEDULE YOU ARE STARTED ON LASIX 40 MG TWICE DAILY . INSULIN DOSE : YOUR INSULIN HAS BEEN CHANGED DO NOT TAKE NPH YOU ARE STARTED ON INSULIN LANTUS SOLOSTAR PEN TAKE 10 UNITS TWICE DAILY ( IN MORNING BEFORE BREAKFAST AND BEFORE DINNER ) PLEASE CHECK YOU BLOOD SUGAR AT 4 TIMES DAILY FASTING ( BEFORE BREAKFAST ) /BEFORE LUNCH /BEFORE DINNER /BEFORE BEDTIME DO NOT GIVE YOURSELF INSULIN IF BLOOD SUGAR LESS THAN 100 KEEP LOG AND BRING IT WITH YOUR NEXT PHYSICIAN APPOINTMENT Call your Primary Care doctor if any of the following symptoms or problems start or get worse: * Shortness of breath or difficulty breathing * Wake up at night short of breath * Chest pain * Cough * Swelling of your hands, feet, or legs * More fatigued or tired with your normal activity * Palpitations - sudden fast heart beats WEIGHT * Weigh yourself every morning after using the bathroom. * Use the same scale. * Wear the same amount of clothing. * Write your weight down on a chart. * Call your Primary Care doctor if you gain more than 2-3 pounds in 1-2 days. MEDICATIONS * Use this discharge instruction sheet for medication instructions. * Take your medications at the time your doctor ordered. * Do not skip a dose of your medicines. * If you miss a dose of medicine, take it as soon as possible, but DO NOT DOUBLE A DOSE. * Read your medicine information when you get home. * Know all of the side effects of your medicine. If in doubt, ask your pharmacist * Call your Primary Care doctor's office if you have any side effects. * Be sure all of your doctors know what medicine and herbs you take (including cold, flu, and herbal medicine). Take the following with you to your follow-up doctor appointments: * Weight Chart * Medication List * List of questions Do not drink excessive alcohol, beer or wine. Current Hospital Diet Patient's current hospital diet: Renal Diet, Diabetes Type 2 Diet Discharge Diet Recommended Diet: AHA Diet (Heart Healthy), Diabetes Type 2 Diet Pending Studies Studies pending at discharge: yes List of pending studies: BASIC METABOLIC PANEL ON Thursday07/01/16 Laboratory Results Hemoglobin A1c Test 06/10/16 06:51 Range/Units Estimated Average Glucose 209 mg/dl Hemoglobin A1c 8.9 H 4.5-5.6 % Medical Emergencies . Who to Call and When: Call 911 or go to the Emergency Room if: * If at any time you feel your situation is an emergency * You have tightness or pain in your chest that does not go away with rest or Nitroglycerin * You are very short of breath even with rest . Non-Emergent Contact Non-Emergency issues call your: Primary Care Provider . . "Provider Documentation" section prepared by Syeda Onofre. . VTE Core Measure Inpt VTE Proph given/why not?: Unfractionated heparin SQ [place] Drug Monitoring Program Search Results: no issues identified Additional Copies To Golden,YanetLeticia Gómez Kerim I., DO
[2016-06-27] MEDS ORDERED: HYDR-4717 PO (18:41)
[2016-06-27] MEDS ORDERED: CARV6.252 PO (18:41)
[2016-06-27] MEDS ORDERED: NRV/10 PO (18:46)
[2016-06-27] MEDS ORDERED: INSU0.01 SC (18:46)
[2016-08-08] MEDS ORDERED: INSULIN REG SC (11:54)
[2016-08-08] MEDS ORDERED: insulin N SQ (11:54)
[2016-08-08] MEDS ORDERED: NRV5 PO (11:54)
[2016-08-19] MEDS ORDERED: TRAM-10 PO (10:53)
[2016-09-08] MEDS ORDERED: PLV75 PO (12:26)
[2016-09-08] MEDS ORDERED: APR50 PO (12:27)
[2016-09-08] MEDS ORDERED: LSX40 PO (12:27)
[2016-09-08] MEDS ORDERED: LPT40 PO (12:27)
[2017-01-07] MEDS ORDERED: EPGI2M SQ (10:34)
[2017-01-07] MEDS ORDERED: AMLO2.5T PO (10:34)
[2017-01-07] MEDS ORDERED: MULT-506 PO (11:54)
[2017-01-07] MEDS ORDERED: CALC500C70 PO (17:41)
[2017-01-07] MEDS ORDERED: ASPI81TA28 PO (17:41)
[2017-01-07] MEDS ORDERED: MAGN400T6 PO (17:41)
== END 2016-06-27 19:27 | disposition home health service (06) | DRG 291 ==
LOC: ENRESERVTM → ENRESERVDT → C.EDB 15:58 → C.2T 19:28
PROVIDERS: ADMIT Hospitalist; ATTEND Hospitalist
DX: I13.0 Hypertensive heart and chronic kidney disease with heart failure and stage 1 through stage 4 chronic kidney disease, or unspecified chronic kidney disease (principal); I50.33 Acute on chronic diastolic (congestive) heart failure; N18.4 Chronic kidney disease, stage 4 (severe); Z68.41 Body mass index [BMI] 40.0-44.9, adult; N17.9 Acute kidney failure, unspecified; J84.9 Interstitial pulmonary disease, unspecified; E66.2 Morbid (severe) obesity with alveolar hypoventilation; I38 Endocarditis, valve unspecified; F41.9 Anxiety disorder, unspecified; F32.9 Major depressive disorder, single episode, unspecified; E11.22 Type 2 diabetes mellitus with diabetic chronic kidney disease; E11.649 Type 2 diabetes mellitus with hypoglycemia without coma; K21.9 Gastro-esophageal reflux disease without esophagitis; E78.5 Hyperlipidemia, unspecified; R79.1 Abnormal coagulation profile; I25.10 Atherosclerotic heart disease of native coronary artery without angina pectoris; Z96.653 Presence of artificial knee joint, bilateral; R79.89 Other specified abnormal findings of blood chemistry; E87.70 Fluid overload, unspecified; I27.2 Other secondary pulmonary hypertension; Z79.82 Long term (current) use of aspirin; Z79.4 Long term (current) use of insulin; Z99.89 Dependence on other enabling machines and devices; Z79.899 Other long term (current) drug therapy; Z84.1 Family history of disorders of kidney and ureter; Z82.49 Family history of ischemic heart disease and other diseases of the circulatory system

== ENCOUNTER 2016-08-19 07:48 | Day surgery (SDC) | payer OTHER ==
[2016-08-08 11:23] VITALS: BMI 40.0
--- NOTE | 2016-08-08 12:15 | PAT Medication Instructions ---
Service Date Aug 08, 2016. Current Home Medication List Acetaminophen Tab (Tylenol), 650 MG PO Q6 PRN for Pain Amlodipine Besylate (Amlodipine Besylate), 5 MG PO QAM Aspirin (Aspirin Ec), 81 MG PO QPM Calcium/Vitamin D (Os-George 500 Plus D), 1 TAB PO BID Carvedilol (Coreg), 6.25 MG PO BID Cholecalciferol (Vitamin D3), 1 TAB PO QAM Docusate Sodium (Docusate Sodium), 1 CAP PO BID PRN for Constipation Ferrous Sulfate (Ferrous Sulfate), 325 MG PO BID Furosemide (Lasix), 40 MG PO BID Hydralazine Hcl (Apresoline), 50 MG PO BID Magnesium Oxide (Mag-Ox), 400 MG PO QAM Meclizine Hcl (Meclizine Hcl), 25 MG PO TID PRN for Dizziness or Vertigo Multivitamin (Multivitamin), 1 TAB PO QAM Nystatin (Topical) (Nystatin), 1 APPLN TOP TID PRN for Affected Skin Folds Pantoprazole Sodium (Protonix), 20 MG PO QAM Simvastatin (Simvastatin), 10 MG PO QPM Sumatriptan Succinate (Imitrex), 25 MG PO PRN UD Zolpidem Tartrate (Zolpidem Tartrate), 5 MG PO HS PRN for Sleep [Insulin reg], 15 UNITS SC QID PRN for sliding scale [insulin N], 25 UNITS SQ QAM Medication Instructions For Your Scheduled Surgery - Hold the following medications 24 hours prior to surgery: Nystatin (Topical) (Nystatin), 1 APPLN TOP TID PRN for Affected Skin Folds - Hold the following medications the morning of surgery: Magnesium Oxide (Mag-Ox), 400 MG PO QAM Cholecalciferol (Vitamin D3), 1 TAB PO QAM Furosemide (Lasix), 40 MG PO BID [Insulin reg], 15 UNITS SC QID PRN for sliding scale Calcium/Vitamin D (Os-George 500 Plus D), 1 TAB PO BID Docusate Sodium (Docusate Sodium), 1 CAP PO BID PRN for Constipation Ferrous Sulfate (Ferrous Sulfate), 325 MG PO BID Multivitamin (Multivitamin), 1 TAB PO QAM - Take the following medications the morning of surgery with a sip of water OTHERWISE NOTHING TO EAT OR DRINK AFTER MIDNIGHT: Carvedilol (Coreg), 6.25 MG PO BID Hydralazine Hcl (Apresoline), 50 MG PO BID Meclizine Hcl (Meclizine Hcl), 25 MG PO TID PRN for Dizziness or Vertigo Pantoprazole Sodium (Protonix), 20 MG PO QAM Amlodipine Besylate (Amlodipine Besylate), 5 MG PO QAM Sumatriptan Succinate (Imitrex), 25 MG PO PRN UD (if needed) Acetaminophen Tab (Tylenol), 650 MG PO Q6 PRN for Pain (may take if needed up to 4 hours prior to surgery) - For Insulin Dependent Diabetic patients: Test blood sugar A.M. of surgery. - If Blood Sugar is GREATER THAN 150, take HALF of your regular dose of: [ insulin N] - If Blood Sugar is LESS THAN 150, do not take any: [insulin N] - Take the following medications as scheduled the night before surgery: Carvedilol (Coreg), 6.25 MG PO BID Aspirin (Aspirin Ec), 81 MG PO QPM Furosemide (Lasix), 40 MG PO BID Hydralazine Hcl (Apresoline), 50 MG PO BID [Insulin reg], 15 UNITS SC QID PRN for sliding scale Meclizine Hcl (Meclizine Hcl), 25 MG PO TID PRN for Dizziness or Vertigo Calcium/Vitamin D (Os-George 500 Plus D), 1 TAB PO BID Docusate Sodium (Docusate Sodium), 1 CAP PO BID PRN for Constipation Ferrous Sulfate (Ferrous Sulfate), 325 MG PO BID Simvastatin (Simvastatin), 10 MG PO QPM Zolpidem Tartrate (Zolpidem Tartrate), 5 MG PO HS PRN for Sleep Sumatriptan Succinate (Imitrex), 25 MG PO PRN UD (if needed) Acetaminophen Tab (Tylenol), 650 MG PO Q6 PRN for Pain If you have any questions please call us at [phone] or [phone] or [phone]
--- NOTE | 2016-08-08 12:38 | DIAGNOSTIC IMAGING REPORT ---
CHEST 2 VIEWS ROUTINE CLINICAL HISTORY: pat preoperative evaluation COMPARISON STUDY: 06/24/2016 FINDINGS: The bones soft tissues and hemidiaphragms are normal. The cardiomediastinal silhouette is normal. The lungs are clear. The pulmonary vasculature is normal. IMPRESSION: Negative chest. Electronically signed by: Ismael Hull M.D. 08/08/2016 12:37 PM Dictated Date/Time: 08/08/2016 12:36 PM
[2016-08-08 12:48] LABS: BASO % 0.3 %; BASO ABS # 0.02 K/uL (0-0.2); EOS % 4.9 %; HEMATOCRIT 26.4 % (37-47); IG% 0.3 %; LYMPH % 20.7 %; LYMPH ABS # 1.58 K/uL (1.2-3.4); MEAN CELL VOLUME 89.2 fL (80-100); MEAN CORPUSCULAR HEMOGLOBIN 28.7 pg (25-34); MEAN CORPUSCULAR HGB CONC 32.2 g/dl (32-36); MEAN PLATELET VOLUME 10.2 fL (7.4-10.4); MONO % 4.2 %; NEUT % 69.6 %; PLATELET COUNT 222 K/uL (130-400); RED BLOOD COUNT 2.96 M/uL (4.2-5.4); WHITE BLOOD COUNT 7.62 K/uL (4.8-10.8)
[2016-08-08 13:07] LABS: INR 0.9 (0.9-1.1); PROTHROMBIN TIME (PATIENT) 10.1 SECONDS (9.0-12.0)
[2016-08-08 13:10] LABS: BUN/CREATININE RATIO 21.1 (10-20); CALCIUM 8.9 mg/dl (8.5-10.1); CREATININE 3.2 mg/dl (0.60-1.20); POTASSIUM 4.6 mmol/L (3.5-5.1)
[2016-08-08 13:24] LABS: ANISOCYTOSIS PRESENT; COMPLETE YES; HYPOCHROMIA PRESENT
[~2016-08-19] VITALS: Ht 152.4 cm; Wt 92.8 kg
--- NOTE | 2016-08-19 06:27 | History and Physical ---
History & Physical Date of Service Aug 19, 2016. History & Physical CC: End stage renal disease HPI: Mrs. Urrutia is in chronic kidney disease, stage V, and will likely require hemodialysis at some point in the future. She had been recommended to undergo AV fistula creation and is in the office to discuss this today. She did have vein mapping prior to today's appointment, which demonstrates usable cephalic veins in her bilateral upper extremities. Patient denies any complaints at this time including headaches, fevers, chills, dizziness, chest pain, shortness breath, abdominal pain, nausea, vomiting, diarrhea, constipation , dysuria, hematuria, rest pain, claudication, nonhealing wounds or ulcers, or other complaints. HER ALLERGIES INCLUDE ACTOS, GG/CODEINE, MORPHINE SULFATE. Her home medications are reconciled in the chart and include the following: Amlodipine, aspirin, calcium gluconate, carvedilol, cholecalciferol, Colace, Feosol, furosemide, hydralazine, regular insulin, magnesium oxide, meclizine, multivitamin, Novolin N, nystatin, pantoprazole, simvastatin, sumatriptan, Tylenol, and zolpidem. 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 Her surgical history is positive for abdominal hysterectomy, section, breast biopsy, cholecystectomy, and right shoulder replacement. Her family history is positive for stomach cancer in her father, heart attack and kidney disease in her brother, hypertension and type 2 diabetes in her mother. Social history is negative for tobacco, alcohol, or drug use. Review of systems is negative for fatigue, fevers, sweats, weight loss, exercise intolerance, abnormal moles or rashes, vision changes or photophobia, ear pain, sinus problems, sore throat, cough, shortness of breath, hemoptysis, wheezing, chest pain, palpitations, or syncope. She does have trace edema of her lower extremities. She denies abdominal pain, nausea, vomiting, diarrhea, constipation, muscle weakness, headaches, dizziness, numbness, or seizures. She does admit inability to utilize her right shoulder since her right shoulder replacement, which was performed due to a severe dislocation and chronic shoulder pain. On physical exam, her vital signs today are as follows: Blood pressure 152/66 in the right arm, 156/62 in the left, heart rate of 71, oxygen saturation 97% on room air. Patient is 152 cm tall and weighs 94.2 kg. Constitutional: In general, patient is a chronically ill-appearing, middle-aged female, in no acute distress. She ambulates slowly. She is active, alert, and oriented x4 with normal recent and remote memory. Head is normocephalic and atraumatic. Eyes are EOMI. ENMT exam demonstrates no hearing loss, rhinorrhea, or pharyngeal erythema. Neck is supple, nontender with a midline trachea without masses or crepitus. Her lung exam demonstrates decreased breath sounds throughout, but clear. Cardiovascular exam demonstrates a nondisplaced apical impulse with a regular rate and rhythm, without any murmurs. Her peripheral pulses are full and equal. Specifically, there are normal carotid, brachial, radial, and femoral pulses. Her lower extremity distal pulses are +1. She has brisk capillary refill and no signs of distal ischemia. Abdomen is soft and nontender with normoactive bowel sounds in all 4 quadrants. No guarding or rebound. There is no flank or CVA tenderness. Musculoskeletal exam demonstrates normal tone and strength for age, although she does have decreased range of motion of her right shoulder. Neurologically, the patient has grossly intact cranial nerves and grossly intact sensation. ASSESSMENT: End-stage renal disease, not yet on hemodialysis. PLAN: Patient is admitted for a left upper extremity cephalic vein fistula creation. I have discussed the risks options and benefits of the procedure with the patient. The patient understands the risks options and benefits and agrees to the procedure.
[~2016-08-19 07:48] MED LIST changes: +ACET325T96 PO; -AMB5 PO; +ASPI81TA28 PO; +CALC500C70 PO; +CARV6.252 PO; +CEFAZOLIN 2000 MG/60 ML D5W 60 ML IV SCH; +CHOL1TAB46 PO; -CRG625 PO; +DOCU100C31 PO; +FERR325T PO; +FURO40TA3 PO; +INSULIN REG SC; +MAGN400T6 PO; +MECL1TAB42 PO; +MULT-506 PO; +NRV5 PO; +NYST100033 TOP; +PANT20TA PO; +SIMV-150 PO; +SODIUM CHLORIDE 0.9% 1000ML 1,000 ML IV SCH; +SUMA25TA12 PO; +ZOLP5TAB6 PO; +insulin N SQ
[2016-08-19] MEDS ORDERED: EpHEDrine SULFATE INJ 50 MG/ML AMP IV PRN (08:30)
[2016-08-19] MEDS ORDERED: ATROPINE SULFATE 0.1 MG/ML 5ML SYR IV PRN (08:30)
[2016-08-19] MEDS ORDERED: FENTANYL CITRATE INJ 50 MCG/1 ML 2 ML VIAL IV PRN (08:30)
[2016-08-19] MEDS ORDERED: ONDANSETRON INJ 2 MG/ML 2 ML VIAL IV PRN (08:30)
[2016-08-19 08:37] VITALS: BP 153/55; PULSE 68; TEMP 36.7; O2SAT 98; Ht 152.4 cm; Wt 92.8 kg
[2016-08-19] MEDS ORDERED: FENTANYL CITRATE INJ 50 MCG/1 ML 2 ML VIAL ONE (08:45)
[2016-08-19] MEDS ORDERED: MIDAZOLAM HCL 1 MG/ML 2ML VIAL ONE (08:45)
[2016-08-19] MEDS ORDERED: PROPOFOL IV EMULSION 10 MG/ML 20 ML VIAL IV ONE (08:45)
[2016-08-19] MEDS ORDERED: LIDOCAINE HCL 2% 2 ML VIAL (20MG/ML) ONE (08:45)
[2016-08-19 09:02] LABS: BUN/CREATININE RATIO 21.1 (10-20); CALCIUM 9.1 mg/dl (8.5-10.1); CREATININE 3.5 mg/dl (0.60-1.20); POTASSIUM 4.4 mmol/L (3.5-5.1)
[2016-08-19] MEDS ORDERED: THROMBIN FOR SOLN 20000 UNIT KIT ONE (09:36)
[2016-08-19] MEDS ORDERED: GELATIN SPONGE 12-7MM ONE (09:36)
[2016-08-19] MEDS ORDERED: LIDOCAINE HCL 1% 20 ML VIAL ONE (09:36)
[2016-08-19] MEDS ORDERED: HEPARIN SOD (PORCINE) 1000 UNIT/ML 10 ML VIAL ONE (09:37)
[2016-08-19] MEDS ORDERED: BUPIVACAINE/EPINEPHRINE 0.5% MPF 1:200,000 10 ML VIAL ONE (09:37)
--- NOTE | 2016-08-19 09:44 | History & Physical Bridge Note ---
H&P Re-Evaluation Bridge Note: I have examined the patient, reviewed the History & Physical and in the interval since the performance of the History & Physical I have noted the following changes of clinical significance: No changes noted
--- NOTE | 2016-08-19 10:48 | [facility] Post Operative Brief Note ---
Immediate Operative Summary Operative Date Aug 19, 2016. Pre-Operative Diagnosis End Stage Renal Disease Post-Operative Diagnosis same Procedure(s) Performed Left Upper Extremity Cephalic Vein Arteriovenous Fistula Surgeon Dr. Chambers Legal Administrative Assistant Surgeon(s) Jossie Florez PA-C Estimated Blood Loss 5 ML Findings good thrill Specimens none per surgeon Anesthesia MAC Complication(s) None Disposition Recovery Room / PACU
--- NOTE | 2016-08-19 10:52 | Discharge Instructions ---
Discharge Instructions Date of Service Aug 19, 2016. Visit Reason for Visit: End Stage Renal Disease Discharge Discharge Diagnosis / Problem: End stage renal disease Discharge Goals Goal(s): Therapeutic intervention Activity Recommendations Activity Limitations: per Instructions/Follow-up section Lifting Limitations: no more than 25 pounds Exercise/Sports Limitations: rest today, gradually increase as tolerated Shower/Bathe: tomorrow Driving or Machine Use: resume 3 days after discharge Anesthesia . Post Anesthesia Instructions: If you have had General Anesthesia or IV Sedation: * Do not drive today. * Resume driving when surgeon permits. * Do not make important decisions or sign legal documents today. * Call surgeon for: 1. Temperature elevations greater than 101 degrees F. 2. Uncontrollable pain. 3. Excessive bleeding. 4. Persistent nausea and vomiting. 5. Medication intolerance (nausea, vomiting or rash). * For nausea and vomiting use only clear liquids such as: tea, soda, bouillon until nausea subsides, then gradually increase diet as tolerated. * If you have any concerns or questions, call your surgeon's office. If physician is unavailable and it is an emergency, call 911 or go to the nearest emergency room. . Instructions / Follow-Up Instructions / Follow-Up Call [phone] to schedule a follow up appointment if one not already scheduled. ACTIVITY RECOMMENDATIONS: See Above SPECIAL CARE INSTRUCTIONS: Call your doctor if: * Temperature above 101 degrees * Pain not relieved by pain medicine ordered * There is increased drainage or redness from any incision * You have any unanswered questions or concerns. Diet Recommendations Recommended Home Diet: resume previous diet Procedures Procedures Performed: Left Upper Extremity Cephalic Vein Arteriovenous Fistula Pending Studies Studies pending at discharge: no Medical Emergencies . Who to Call and When: Medical Emergencies: If at any time you feel your situation is an emergency, please call 911 immediately. . Non-Emergent Contact Non-Emergency issues call your: Surgeon . . "Provider Documentation" section prepared by Gregory Chambers. .
[2016-08-19] MEDS ORDERED: TRAM-10 PO (10:53)
--- NOTE | 2016-08-19 11:09 | [facility] Operative Report ---
Operative Report Operative Date Aug 19, 2016. Pre-Operative Diagnosis End Stage Renal Disease Post-Operative Diagnosis same Procedure(s) Performed Left Upper Extremity Cephalic Vein Arteriovenous Fistula Surgeon Dr. Chambers Regulatory Compliance Manager Surgeon(s) Jossie Florez PA-C Estimated Blood Loss 5 ML Findings good thrill Specimens none per surgeon Anesthesia MAC Complication(s) None Disposition Recovery Room / PACU Indications This is a 66-year-old white female with renal failure in need of a permanent access for dialysis. a left antecubital cephalic vein fistula was recommende. She understood the risks options and benefits and agreed to go ahead with this procedure. Description of Procedure The patient was taken to the operating and placed in the supine position. After the left arm was prepped and draped in a sterile manner, local anesthetic was administered. A transverse incision was made just below the antecubital crease. Dissection was carried down until the brachial artery is identified. It was found to be of good caliber. It was dissected free proximally and distally to the bifurcation of the brachial artery into the RADIAL AND ULNAR ARTERIES. The CEPHALIC VEIN THAT WAS IDENTIFIED IN THE ANTECUBITAL FOSSA ALSO APPEARED TO BE OF GOOD CALIBER. THIS WAS FREED UP FOR A SHORT DISTANCE. IT WAS THEN LIGATED DISTALLY AND DIVIDED. THE BRACHIAL ARTERY WAS THEN CLAMPED PROXIMAL DISTALLY. A LONGITUDINAL ARTERIOTOMY WAS PERFORMED. THE SURFACE OF THE BRACHIAL ARTERY WAS SMOOTH WITHOUT ANY EVIDENCE OF ATHEROSCLEROTIC CHANGES. THE VEIN WAS THEN TRIMMED AND BEVELED. AN END-TO-SIDE ANASTOMOSIS WAS PERFORMED BETWEEN THE CEPHALIC VEIN AND THE BRACHIAL ARTERY USING A RUNNING 6-0 PROLENE SUTURE. THIS WAS DONE IN THE USUAL VASCULAR FASHION. PRIOR TO COMPLETING THE CLOSURE BACKBLEEDING AND FORE BLEEDING WAS ALLOWED TO OCCUR. THE FINAL FEW SUTURES WERE PLACED AND SECURELY TIED. CLAMPS WERE REMOVED OFF THE BRACHIAL ARTERY AND THE CEPHALIC VEIN. GOOD FLOW WAS SEEN IN THE CEPHALIC VEIN. A GOOD THRILL WAS FELT IN THE FISTULA THAT TIME.. THE WOUND WAS THEN CLOSED IN THE USUAL FASHION USING A RUNNING 3-0 VICRYL SUTURE FOR THE SUBCUTANEOUS LAYER. A 4-0 VICRYL SUBCUTICULAR SUTURE WAS USED FOR THE SKIN EDGES. DERMABOND WAS USED FOR A DRESSING. THERE WAS GOOD FLOW TO HER HANDS WITH QUICK BRISK CAPILLARY REFILL OF THE FINGERS. PATIENT LEFT THE OPERATING ROOM IN SATISFACTORY CONDITION AND TOLERATED PROCEDURE WELL. NEEDLE SPONGE AND INSTRUMENT COUNT WERE CORRECT AT THE END OF THE CASE. Jossie Florez Pac assisted due to lack of resident availability and was necessary for prepping, draping, retraction, wound closure defects, subQ and skin closure and was necessary for the case. I attest to the content of the Intraoperative Record and any orders documented therein. Any exceptions are noted below.
--- NOTE | 2016-08-19 11:30 | Anesthesiology Progress Note ---
Anesthesia Post Op Note Date & Time Aug 19, 2016 at 11:30 Vital Signs Pain Intensity: 0 Vital Signs Past 12 Hours Date Time Temp Pulse Resp B/P (MAP) Pulse Ox O2 Delivery O2 Flow Rate FiO2 08/19/16 11:22 62 16 100 08/19/16 11:22 62 16 08/19/16 11:21 173/74 08/19/16 11:17 62 17 99 08/19/16 11:17 63 17 08/19/16 11:16 152/72 08/19/16 11:12 62 17 100 08/19/16 11:12 61 17 08/19/16 11:11 166/64 08/19/16 11:07 62 14 171/70 98 08/19/16 11:07 36.5 61 16 171/70 100 Mask 10 08/19/16 11:07 58 14 08/19/16 08:37 36.7 68 20 153/55 (87) 98 Room Air Notes Mental Status: alert / awake / arousable, participated in evaluation Pt Amnestic to Procedure: Yes Nausea / Vomiting: adequately controlled Pain: adequately controlled Airway Patency, RR, SpO2: stable & adequate BP & HR: stable & adequate Hydration State: stable & adequate Anesthetic Complications: no major complications apparent
[2016-08-19 11:55] VITALS: BP 187/69; PULSE 63; TEMP 36.8; O2SAT 98
[2016-08-19 12:25] VITALS: BP 181/70; PULSE 62; O2SAT 98
[2016-08-19 12:55] VITALS: BP 192/78; PULSE 62; TEMP 36.8; O2SAT 98
--- NOTE | 2016-08-19 15:39 | Progress Note ---
Progress Note Date of Service Aug 19, 2016. Progress Note I assisted Dr Chambers with Sepideh Urrutia's Left Upper Extremity Cephalic Vein Arteriovenous Fistula on 08/19/16, d/t lack of resident availability.
[2016-09-08] MEDS ORDERED: PLV75 PO (12:26)
[2016-09-08] MEDS ORDERED: APR50 PO (12:27)
[2016-09-08] MEDS ORDERED: LSX40 PO (12:27)
[2016-09-08] MEDS ORDERED: LPT40 PO (12:27)
== END 2016-08-19 12:55 | disposition home or self-care (01) ==
LOC: C.ACU 07:48
PROVIDERS: ATTEND Surgery Vascular Surgery
DX: N18.6 End stage renal disease (principal); I50.32 Chronic diastolic (congestive) heart failure; I13.2 Hypertensive heart and chronic kidney disease with heart failure and with stage 5 chronic kidney disease, or end stage renal disease; D63.1 Anemia in chronic kidney disease; E78.5 Hyperlipidemia, unspecified; Z79.82 Long term (current) use of aspirin; E66.01 Morbid (severe) obesity due to excess calories; G47.33 Obstructive sleep apnea (adult) (pediatric); E11.9 Type 2 diabetes mellitus without complications; Z90.710 Acquired absence of both cervix and uterus; Z90.49 Acquired absence of other specified parts of digestive tract; Z82.49 Family history of ischemic heart disease and other diseases of the circulatory system; Z83.3 Family history of diabetes mellitus

== ENCOUNTER 2016-09-01 09:31 | Inpatient (IN) | payer OTHER ==
[~2016-09-01] VITALS: Ht 152.4 cm; Wt 90.4 kg
[~2016-09-01 09:31] MED LIST changes: -CEFAZOLIN 2000 MG/60 ML D5W 60 ML IV SCH; -SODIUM CHLORIDE 0.9% 1000ML 1,000 ML IV SCH; +TRAM-10 PO
--- NOTE | 2016-09-01 10:03 | EMERGENCY ROOM VISIT NOTE ---
History Report prepared by Kwame: Elvira Del Rosario Under the Supervision of: Dr. Tereso Perez M.D. First contact with patient: 09:45 Chief Complaint: CHEST PAIN Stated Complaint: HEAVINESS ON CHEST,WEAKNESS ON LEFT LEG AND ARM History of Present Illness The patient is a 66 year old female who presents to the Emergency Room with complaints of intermittent chest pain for the past two days. She describes her pain as a heaviness and states that it is located in the center of her chest. She reports, "It feels like someone is sitting on my chest." The patient rates her pain as a 2/10 in severity. She also notes shortness of breath that is worsened with exertion. When she woke up this morning, she felt very weak on the left side of her body. She was unable to sit up and her had to help her. The patient recently had surgery to place a catheter for dialysis. Dr. Chambers performed this surgery. She has not been scheduled to start dialysis yet. Source of History: patient Onset: two days ago Position: chest Symptom Intensity: 2/10 Quality: other (heaviness) Timing: intermittent Modifying Factors (Worsening): exertion Associated Symptoms: + SOB, + weakness (left sided) Review of Systems See HPI for pertinent positives & negatives. A total of 10 systems reviewed and were otherwise negative. Past Medical & Surgical Medical Problems: (1) Anxiety (2) Chronic anemia (3) CKD (chronic kidney disease), stage IV (4) Depression (5) Diabetes mellitus, type 2 (6) Diastolic CHF (7) GERD (gastroesophageal reflux disease) (8) Hx of migraines (9) Hyperlipidemia (10) Hypertension (11) Interstitial lung disease (12) KUSHAL (obstructive sleep apnea) Surgical Problems: (1) Hx of shoulder surgery (2) Hx of total knee replacement Family History Cancer FATHER (? gastric primary) Dementia MOTHER Diabetes mellitus MOTHER BROTHER BROTHER Kidney disease MOTHER Myocardial infarction BROTHER BROTHER Social History Smoking Status: Never Smoker Alcohol Use: none Drug Use: none Marital Status: Housing Status: lives with family Current/Historical Medications Scheduled Amlodipine (Norvasc), 2.5 MG PO DAILY Aspirin (Aspirin Ec), 81 MG PO QPM Calcium/Vitamin D (Os-George 500 Plus D), 1 TAB PO BID Carvedilol (Coreg), 1 TAB PO BID Cholecalciferol (Vitamin D3), 1 TAB PO QAM Epoetin Oleg (Procrit), 10,000 UNITS SQ UD Ferrous Sulfate (Ferrous Sulfate), 325 MG PO BID Furosemide (Lasix), 40 MG PO BID Hydralazine Hcl (Apresoline), 50 MG PO BID Magnesium Oxide (Mag-Ox), 400 MG PO QAM Multivitamin (Multivitamin), 1 TAB PO QAM Pantoprazole Sodium (Protonix), 20 MG PO QAM Simvastatin (Simvastatin), 10 MG PO QPM Sumatriptan Succinate (Imitrex), 25 MG PO PRN UD [insulin N], 26 UNITS SQ QAM Scheduled PRN Acetaminophen Tab (Tylenol), 650 MG PO Q6 PRN for Pain Docusate Sodium (Docusate Sodium), 1 CAP PO BID PRN for Constipation Meclizine Hcl (Meclizine Hcl), 25 MG PO TID PRN for Dizziness or Vertigo Nystatin (Topical) (Nystatin), 1 APPLN TOP TID PRN for Affected Skin Folds [Insulin reg], 15 UNITS SC QID PRN for sliding scale Allergies Coded Allergies: Codeine (Verified Allergy, Intermediate, hives, 08/08/16) Pioglitazone (Unverified Allergy, Intermediate, Rash/Fluid retention, 08/08) RETAINS FLUID Morphine (Verified Allergy, Mild, 08/08/16) Physical Exam Vital Signs Date Time Temp Pulse Resp B/P (MAP) Pulse Ox O2 Delivery O2 Flow Rate FiO2 09/01/16 10:56 64 18 148/90 100 Room Air 09/01/16 10:16 95 Room Air 09/01/16 09:56 59 09/01/16 09:41 94 Room Air 09/01/16 09:41 95 Room Air 09/01/16 09:34 36.8 57 18 131/59 97 Room Air Physical Exam GENERAL: Patient is a healthy-appearing well-nourished 66 year old female HEAD: Normocephalic atraumatic EYES: Ocular movements intact pupils equal and react to light OROPHARYNX mucous membranes are moist no exudates present no erythema or edema present NECK: Supple no nuchal rigidity CHEST: Good equal expansion LUNGS: Clear and equal to auscultation CARDIAC: Grade 2/6 systolic murmur. Normal S1 and S2 ABDOMEN: Soft nontender no guarding BACK: No CVA tenderness EXTREMITIES: No pain upon palpation normal muscle strength in all groups no clubbing cyanosis or edema NEURO: Patient is following commands and answering questions appropriately. Alert and oriented x3 Cranial Nerves 2-12 grossly intact Medical Decision & Procedures ER Provider Diagnostic Interpretation: Radiology results as stated below per my review and radiologist interpretation: CHEST ONE VIEW PORTABLE CLINICAL HISTORY: CHEST PAIN dyspnea COMPARISON STUDY: 08/08/2016 FINDINGS: Mild stable cardiomegaly. Calcification of the mitral annulus. Lungs are clear. IMPRESSION: Mild stable cardiomegaly. Otherwise negative study. The above report was generated using voice recognition software. It may contain grammatical, syntax or spelling errors. Electronically signed by: Ismael Hull M.D. 09/01/2016 10:20 AM Dictated Date/Time: 09/01/2016 10:19 AM Laboratory Results 09/01/16 10:17 Red Blood Count 3.08, Mean Corpuscular Volume 89.6, Mean Corpuscular Hemoglobin 28.6, Mean Corpuscular Hemoglobin Concent 31.9, Mean Platelet Volume 10.9, Neutrophils (%) (Auto) 73.3, Lymphocytes (%) (Auto) 16.8, Monocytes (%) (Auto) 5.5, Eosinophils (%) (Auto) 3.8, Basophils (%) (Auto) 0.3, Neutrophils # (Auto) 6.59, Lymphocytes # (Auto) 1.51, Monocytes # (Auto) 0.49, Eosinophils # (Auto) 0.34, Basophils # (Auto) 0.03 09/01/16 09:59 Test 09/01/16 09:59 09/01/16 10:10 09/01/16 10:17 Est Creatinine Clear Calc Drug Dose 14.6 ml/min Estimated GFR () 13.4 Estimated GFR (Non- 11.6 BUN/Creatinine Ratio 23.8 (10-20) Calcium Level 8.7 mg/dl (8.5-10.1) Total Bilirubin 0.2 mg/dl (0.2-1) Direct Bilirubin < 0.1 mg/dl (0-0.2) Aspartate Amino Transf (AST/SGOT) 19 U/L (15-37) Alanine Aminotransferase (ALT/SGPT) 25 U/L (12-78) Alkaline Phosphatase 70 U/L (45-117) Total Creatine Kinase 82 U/L (26-192) Pro-B-Type Natriuretic Peptide 1340 pg/ml (0-900) Total Protein 6.6 gm/dl (6.4-8.2) Albumin 2.9 gm/dl (3.4-5.0) Lipase 142 U/L (73-393) Bedside Hemoglobin 8.2 g/dl (12.0-16.0) Bedside Hematocrit 24 % (37-47) Bedside Sodium 140 mEq/L (135-144) Bedside Potassium 4.7 mEq/L (3.3-5.0) Bedside Chloride 108 mEq/L (101-112) Bedside Total CO2 21 mEq/l (24-31) Anion Gap 17.0 mmol/L (16-25) Bedside Blood Urea Nitrogen 95 mg/dl (7-18) Bedside Creatinine 4.0 mg/dl (0.6-1.3) Bedside Glucose (other) 127 mg/dl (70-99) Bedside Ionized Calcium (Lucinda) 1.08 mmol/l (1.12-1.32) White Blood Count 8.99 K/uL (4.8-10.8) Red Blood Count 3.08 M/uL (4.2-5.4) Hemoglobin 8.8 g/dL (12.0-16.0) Hematocrit 27.6 % (37-47) Mean Corpuscular Volume 89.6 fL (80-100) Mean Corpuscular Hemoglobin 28.6 pg (25-34) Mean Corpuscular Hemoglobin Concent 31.9 g/dl (32-36) Platelet Count 211 K/uL (130-400) Mean Platelet Volume 10.9 fL (7.4-10.4) Neutrophils (%) (Auto) 73.3 % Lymphocytes (%) (Auto) 16.8 % Monocytes (%) (Auto) 5.5 % Eosinophils (%) (Auto) 3.8 % Basophils (%) (Auto) 0.3 % Neutrophils # (Auto) 6.59 K/uL (1.4-6.5) Lymphocytes # (Auto) 1.51 K/uL (1.2-3.4) Monocytes # (Auto) 0.49 K/uL (0.11-0.59) Eosinophils # (Auto) 0.34 K/uL (0-0.5) Basophils # (Auto) 0.03 K/uL (0-0.2) RDW Standard Deviation 47.9 fL (36.4-46.3) RDW Coefficient of Variation 14.7 % (11.5-14.5) Immature Granulocyte % (Auto) 0.3 % Immature Granulocyte # (Auto) 0.03 K/uL (0.00-0.02) Red Blood Cell Morphology Unremarkable Labs reviewed by ED physician. Medications Administered Medications (Trade) Dose Ordered Sig/Aleks Route Start Time Stop Time Status Last Admin Dose Admin Aspirin (Aspirin Chew) 324 mg NOW STAT PO 09/01/16 10:54 09/01/16 10:55 DC 09/01/16 11:24 324 MG ECG Indication: chest pain Rate (beats per minute): 60 Rhythm: normal sinus Findings: no acute ischemic change, no ectopy, other (old anterior infarct) ED Course 0945: Past medical records reviewed. The patient was evaluated in room A11B. A complete history and physical examination was performed. 1054: Aspirin 324 mg PO 1057: I reassessed the patient at this time. She is doing well. I discussed the results and treatment plan with the patient. I answered all pertaining questions that she had. She expressed understanding and verbalized agreement. 1100: Nitroglycerin 0.4 mg SL - PRN 1103: I spoke with SHARA Nevarez . We discussed the patients case. The patient will be evaluated by the [facility] for further management. Medical Decision Etiologies such as cardiac ischemia, aortic dissection, pulmonary embolism, pneumonia, pneumothorax, musculoskeletal, infections, pericarditis, myocarditis , esophageal rupture, gastrointestinal, as well as others were entertained. This is a 66-year-old female who presents emergency department complaining of chest pain. The patient was given 3 and 24 mg of aspirin in the emergency department as well as nitroglycerin. Repeat examination revealed improvement the patient's symptoms. The patient has not yet started dialysis yet has a history of diabetes. I did discuss the case with the hospitalist service who agreed to admit the patient. Patient was in agreement with the treatment plan. Medication Reconcilliation Current Medication List: was personally reviewed by me Blood Pressure Screening Patient's blood pressure: Elevated blood pressure Blood pressure disposition: Referred to PCP Consults Time Called: 1101 Consulting Physician: SHARA Nevarez Returned Call: 1103 I spoke with SHARA Nevarez . We discussed the patients case. [facility]. Impression Primary Impression: Precordial chest pain Scribe Attestation The scribe's documentation has been prepared under my direction and personally reviewed by me in its entirety. I confirm that the note above accurately reflects all work, treatment, procedures, and medical decision making performed by me. Departure Information Dispostion Being Evaluated By Hospitalist Referrals Yanet Golden M.D. (PCP) Patient Instructions My [facility]
--- NOTE | 2016-09-01 10:21 | DIAGNOSTIC IMAGING REPORT ---
CHEST ONE VIEW PORTABLE CLINICAL HISTORY: CHEST PAIN dyspnea COMPARISON STUDY: 08/08/2016 FINDINGS: Mild stable cardiomegaly. Calcification of the mitral annulus. Lungs are clear. IMPRESSION: Mild stable cardiomegaly. Otherwise negative study. The above report was generated using voice recognition software. It may contain grammatical, syntax or spelling errors. Electronically signed by: Ismael Hull M.D. 09/01/2016 10:20 AM Dictated Date/Time: 09/01/2016 10:19 AM
[2016-09-01 10:25] LABS: BASO % 0.3 %; BASO ABS # 0.03 K/uL (0-0.2); EOS % 3.8 %; HEMATOCRIT 27.6 % (37-47); IG% 0.3 %; LYMPH % 16.8 %; LYMPH ABS # 1.51 K/uL (1.2-3.4); MEAN CELL VOLUME 89.6 fL (80-100); MEAN CORPUSCULAR HEMOGLOBIN 28.6 pg (25-34); MEAN CORPUSCULAR HGB CONC 31.9 g/dl (32-36); MEAN PLATELET VOLUME 10.9 fL (7.4-10.4); MONO % 5.5 %; NEUT % 73.3 %; PLATELET COUNT 211 K/uL (130-400); RED BLOOD COUNT 3.08 M/uL (4.2-5.4); WHITE BLOOD COUNT 8.99 K/uL (4.8-10.8)
[2016-09-01 10:34] LABS: ISTAT HEMOGLOBIN 8.2 g/dl (12.0-16.0); ISTAT IONIZED CALCIUM 1.08 mmol/l (1.12-1.32)
[2016-09-01] MEDS ORDERED: AMLO2.5T PO (10:34)
[2016-09-01] MEDS ORDERED: EPGI2M SQ (10:34)
[2016-09-01 10:40] LABS: ALT/SGPT 25 U/L (12-78); BLOOD UREA NITROGEN 91 mg/dl (7-18); BUN/CREATININE RATIO 23.8 (10-20); CALCIUM 8.7 mg/dl (8.5-10.1); CARBON DIOXIDE 22 mmol/L (21-32); CHLORIDE 110 mmol/L (98-107); GLUCOSE 125 mg/dl (70-99); POTASSIUM 4.5 mmol/L (3.5-5.1); SODIUM 143 mmol/L (136-145)
[2016-09-01 10:46] LABS: ALKALINE PHOSPHATASE 70 U/L (45-117); AST/SGOT 19 U/L (15-37); CKMB/CK RATIO 2.2 (0-3.0)
[2016-09-01] MEDS ORDERED: ASPIRIN 81 MG CHEW PO STA (10:54)
[2016-09-01 10:58] LABS: COMPLETE YES
[2016-09-01] MEDS ORDERED: NITROGLYCERIN 0.4 MG SL PER TAB CHARGE SL PRN ×2 (11:00→12:15)
[2016-09-01 12:10] VITALS: O2SAT 100; Ht 152.4 cm; Wt 90.4 kg
[2016-09-01] MEDS ORDERED: ONDANSETRON INJ 2 MG/ML 2 ML VIAL IV PRN (12:15)
[2016-09-01] MEDS ORDERED: IV FLUIDS COMPLETED PRN (12:15)
[2016-09-01] MEDS ORDERED: MECLIZINE HCL 25 MG TAB PO PRN (12:30)
[2016-09-01] MEDS ORDERED: NYSTATIN POWDER 15GM BTL EXT PRN (12:30)
[2016-09-01] MEDS ORDERED: INSULIN REGULAR SC PRN (12:30)
[2016-09-01] MEDS ORDERED: DOCUSATE SODIUM 100 MG CAP PO PRN (12:30)
[2016-09-01] MEDS ORDERED: SUMATRIPTAN SUCCINATE 25 MG TAB PO PRN (12:30)
[2016-09-01] MEDS ORDERED: CARV12.52 PO (12:34)
[2016-09-01] MEDS ORDERED: GLUCOSE 40% GEL 15 GM TUBE PO PRN (12:45)
[2016-09-01] MEDS ORDERED: GLUCOSE 10 TABS/TUBE PO PRN (12:45)
[2016-09-01] MEDS ORDERED: DEXTROSE 50% 50 ML SYR IV PRN (12:45)
[2016-09-01] MEDS ORDERED: GLUCAGON FOR INJ 1 MG VIAL SQ PRN (12:45)
[2016-09-01] MEDS ORDERED: PHARMACY GLYCEMIC MGMT CONSULT PRN (13:19)
--- NOTE | 2016-09-01 13:44 | History and Physical ---
History & Physical Date & Time of Service: Sep 01, 2016 at 13:34 Chief Complaint: Heaviness On Chest,Weakness On Left Leg And Arm Primary Care Physician: Yanet Golden M.D. History of Present Illness Source: patient This is a 66yo F with PMH of diastolic CHF (EF: 60-64%), DM II, CKD IV, HTN, HLD and chronic anemia who presents with chest pain and left sided weakness x 2 days. States that yesterday, she started to experience chest tightness that felt like "an elephant sitting on my chest". Pain was intermittent, non- radiating and exacerbated with exertion, like walking from one room to another in her home. Alleviated with rest. Also states that she started to feel weakness in her L side yesterday but was still able to ambulate by walker as usual. This morning, patient woke up with a similar chest pain as well as worsening L-sided weakness and required her 's help to sit up in bed. Was still able to ambulate by walker in house but then switched to wheelchair before presenting to ED. In ED, chest pain was relieved with nitro. Endorses associated SOB, but states that SOB has been her baseline for the past few months. Of note, had dialysis fistula placed in L arm two weeks ago by Dr. Chambers. Plans to start dialysis in 1.5 months. Denies any dizziness, confusion, diaphoresis, cough, orthopnea, PND , nausea, vomiting or MSK pain. Denies any history of CAD but sees Dr. Wang in clinic for management of diastolic CHF. Past Medical/Surgical History Medical Problems: (1) Anxiety Status: Chronic (2) Chronic anemia Status: Chronic (3) CKD (chronic kidney disease), stage IV Status: Chronic (4) Depression Status: Chronic (5) Diabetes mellitus, type 2 Status: Chronic (6) Diastolic CHF Status: Chronic (7) GERD (gastroesophageal reflux disease) Status: Chronic (8) Hx of migraines Status: Chronic (9) Hyperlipidemia Status: Chronic (10) Hypertension Status: Chronic (11) Interstitial lung disease Status: Chronic (12) KUSHAL (obstructive sleep apnea) Permanent Comment: CPAP HS Status: Chronic Surgical Problems: (1) Hx of shoulder surgery Status: Chronic (2) Hx of total knee replacement Status: Chronic Family History Cancer FATHER (? gastric primary) Dementia MOTHER Diabetes mellitus MOTHER BROTHER BROTHER Kidney disease MOTHER Myocardial infarction BROTHER BROTHER Social History Smoking Status: Never Smoker Alcohol Use: none Drug Use: none Marital Status: Housing status: lives with family Immunizations History of Influenza Vaccine: Yes History of Tetanus Vaccine?: utd Tetanus Immunization Date: Feb 19, 2006 History of Pneumococcal: Yes History of Hepatitis B Vaccine: No Allergies Coded Allergies: Codeine (Verified Allergy, Intermediate, hives, 08/08/16) Pioglitazone (Unverified Allergy, Intermediate, Rash/Fluid retention, 08/08) RETAINS FLUID Morphine (Verified Allergy, Mild, 08/08/16) Home Medications Scheduled Amlodipine (Norvasc), 2.5 MG PO DAILY Aspirin (Aspirin Ec), 81 MG PO QPM Calcium/Vitamin D (Os-George 500 Plus D), 1 TAB PO BID Carvedilol (Coreg), 1 TAB PO BID Cholecalciferol (Vitamin D3), 1 TAB PO QAM Epoetin Oleg (Procrit), 10,000 UNITS SQ UD Ferrous Sulfate (Ferrous Sulfate), 325 MG PO BID Furosemide (Lasix), 40 MG PO BID Hydralazine Hcl (Apresoline), 50 MG PO BID Magnesium Oxide (Mag-Ox), 400 MG PO QAM Multivitamin (Multivitamin), 1 TAB PO QAM Pantoprazole Sodium (Protonix), 20 MG PO QAM Simvastatin (Simvastatin), 10 MG PO QPM Sumatriptan Succinate (Imitrex), 25 MG PO PRN UD [insulin N], 26 UNITS SQ QAM Scheduled PRN Acetaminophen Tab (Tylenol), 650 MG PO Q6 PRN for Pain Docusate Sodium (Docusate Sodium), 1 CAP PO BID PRN for Constipation Meclizine Hcl (Meclizine Hcl), 25 MG PO TID PRN for Dizziness or Vertigo Nystatin (Topical) (Nystatin), 1 APPLN TOP TID PRN for Affected Skin Folds [Insulin reg], 15 UNITS SC QID PRN for sliding scale Review of Systems Ten systems reviewed and negative except as noted in the HPI. Physical Exam Vital Signs Date Time Temp Pulse Resp B/P (MAP) Pulse Ox O2 Delivery O2 Flow Rate FiO2 09/01/16 13:05 62 18 161/63 100 09/01/16 12:17 64 20 161/63 100 Room Air 09/01/16 12:10 100 Room Air 09/01/16 10:56 64 18 148/90 100 Room Air 09/01/16 10:16 95 Room Air 09/01/16 09:56 59 09/01/16 09:41 94 Room Air 09/01/16 09:41 95 Room Air 09/01/16 09:34 36.8 57 18 131/59 97 Room Air General Appearance: WD/WN, no apparent distress, + obese Head: normocephalic, atraumatic Eyes: normal inspection, EOMI (Chronic decreased visual acuity in both eyes.) ENT: normal ENT inspection Neck: supple, no adenopathy, thyroid normal Respiratory/Chest: chest non-tender, lungs clear, normal breath sounds, no respiratory distress, no accessory muscle use Cardiovascular: regular rate, rhythm, normal peripheral pulses, + systolic murmur Abdomen/GI: normal bowel sounds, non tender, soft, no organomegaly Back: normal inspection, no CVA tenderness Extremities/Musculoskelatal: no calf tenderness, + pedal edema (L>R. ), + pertinent finding (Presence of a healing fisula on L forearm with some associated bruising) Neurologic/Psych: car chaser II-XII nml as tested, no motor/sensory deficits (Normal ROM and 5/5 SAMMY in all 4 extremities.), alert, normal mood/affect, oriented x 3 Skin: normal color, warm/dry, no rash Lymphatic: no adenopathy Diagnostics Laboratory Results Results Past 24 Hours Test 09/01/16 09:59 09/01/16 10:10 09/01/16 10:17 Range/Units Sodium Level 143 136-145 mmol/L Potassium Level 4.5 3.5-5.1 mmol/L Chloride Level 110 98-107 mmol/L Carbon Dioxide Level 22 21-32 mmol/L Anion Gap 11.0 17.0 16-25 mmol/L Blood Urea Nitrogen 91 7-18 mg/dl Creatinine 3.80 0.60-1.20 mg/dl Est Creatinine Clear Calc Drug Dose 14.6 ml/min Estimated GFR () 13.4 Estimated GFR (Non- 11.6 BUN/Creatinine Ratio 23.8 10-20 Random Glucose 125 70-99 mg/dl Calcium Level 8.7 8.5-10.1 mg/dl Total Bilirubin 0.2 0.2-1 mg/dl Direct Bilirubin < 0.1 0-0.2 mg/dl Aspartate Amino Transf (AST/SGOT) 19 15-37 U/L Alanine Aminotransferase (ALT/SGPT) 25 12-78 U/L Alkaline Phosphatase 70 45-117 U/L Total Creatine Kinase 82 26-192 U/L Creatine Kinase MB 1.8 0.5-3.6 ng/ml Creatine Kinase MB Ratio 2.2 0-3.0 Troponin I < 0.015 0-0.045 ng/ml Pro-B-Type Natriuretic Peptide 1340 0-900 pg/ml Total Protein 6.6 6.4-8.2 gm/dl Albumin 2.9 3.4-5.0 gm/dl Lipase 142 73-393 U/L Bedside Hemoglobin 8.2 12.0-16.0 g/dl Bedside Hematocrit 24 37-47 % Bedside Sodium 140 135-144 mEq/L Bedside Potassium 4.7 3.3-5.0 mEq/L Bedside Chloride 108 101-112 mEq/L Bedside Total CO2 21 24-31 mEq/l Bedside Blood Urea Nitrogen 95 7-18 mg/dl Bedside Creatinine 4.0 0.6-1.3 mg/dl Bedside Glucose (other) 127 70-99 mg/dl Bedside Ionized Calcium (Lucinda) 1.08 1.12-1.32 mmol/l White Blood Count 8.99 4.8-10.8 K/uL Red Blood Count 3.08 4.2-5.4 M/uL Hemoglobin 8.8 12.0-16.0 g/dL Hematocrit 27.6 37-47 % Mean Corpuscular Volume 89.6 80-100 fL Mean Corpuscular Hemoglobin 28.6 25-34 pg Mean Corpuscular Hemoglobin Concent 31.9 32-36 g/dl Platelet Count 211 130-400 K/uL Mean Platelet Volume 10.9 7.4-10.4 fL Neutrophils (%) (Auto) 73.3 % Lymphocytes (%) (Auto) 16.8 % Monocytes (%) (Auto) 5.5 % Eosinophils (%) (Auto) 3.8 % Basophils (%) (Auto) 0.3 % Neutrophils # (Auto) 6.59 1.4-6.5 K/uL Lymphocytes # (Auto) 1.51 1.2-3.4 K/uL Monocytes # (Auto) 0.49 0.11-0.59 K/uL Eosinophils # (Auto) 0.34 0-0.5 K/uL Basophils # (Auto) 0.03 0-0.2 K/uL RDW Standard Deviation 47.9 36.4-46.3 fL RDW Coefficient of Variation 14.7 11.5-14.5 % Immature Granulocyte % (Auto) 0.3 % Immature Granulocyte # (Auto) 0.03 0.00-0.02 K/uL Red Blood Cell Morphology Unremarkable Diagnostic Radiology CXR (09/01/16): Mild stable cardiomegaly. Lungs are clear. EKG Normal sinus rhythm. Anterior infarct (cited on or before 11-JUN-2016) Impression Assessment and Plan This is a 66yo F with PMH of diastolic CHF (EF: 60-64%), DM II, CKD IV, HTN, HLD and chronic anemia who presents with chest pain and left sided weakness x 2 days. Chest pain/tightness: -Typical angina, relieved with nitro. -R/o ACS; risk factors include DM II, HTN, HLD, obesity -Stress echo (11/23) without wall abnormalities or inducible ischemia. Resting echo performed in 06/25 with EF: 60-64%. -Initial troponin: negative. -EKG-normal sinus rhythm with evidence of an old anterior infarct. -CXR- mild stable cardiomegaly. Lungs are clear. -Continue home meds. -Trend serial cardiac enzymes. -Follow up on resting echo. -Repeat EKG in am. -Consulted cardiology for additional recs. L Sided Weakness: -No objective weakness on exam. Full ROM and SAMMY in all 4 extremities. -Per hx, was able to ambulate normally with walker despite L sided weakness. -Will continue to monitor and will get a head CT if any focal deficits are observed. -Reports hx of a CVA in 2016 but is unclear about resulting diagnosis. Nothing noted in chart review. Diastolic CHF: -No evidence to support an acute exacerbation. -Denies any SOB or edema above baseline. -Has been taking BP meds and Lasix at home as scheduled. -No fluid in lungs on CXR and normal breath sounds on exam. -Continue home meds. Chronic anemia: -Hgb 8.8 currently, which is slightly above baseline. -Receives Procrit injections every 2 weeks. Is due today so will receive injection in-patient. -Continue iron supplement. -Monitor H&H. CKD IV: -Dialysis fistula placed in L forearm by Dr. Chambers 2 weeks ago. -Plan to start dialysis in 1.5 months. -Cr 3.8 today; is on the high end of new baseline. -Cr has trended between 2.8-3.8 in 2017. DM II: -Last hgb a1c of 9.5 in 04/25. Ordered another. -SSI while in-patient. Placed glycemic control consult with pharm. -Diabetic retinopathy stable. HTN: -Slightly elevated at 161/63. Will monitor and make necessary adjustments. -Continue home meds. KUSHAL; -Stable -Will bring CPAP from home. Depression/anxiety: -Stable. Not on home meds per review. DVT Ppx: Heparin Code status: FULL PCP: Dr. Golden Dispo: Telemetry obs Attending Addendum Pt was seen examined. Agreed with Rose MENDIETA physical exam, assessment and plan. 66 yo female with PMH of diastolic heart failure, CKD stage 4, HTN , DMII came to the ER for chest pain like pressure that has been going for about 2 days. Pt said that this morning she had left upper extremities weakness. she said the chest pain is located in the mid sternal General- no acute distress Head- atraumatic Eyes- PERRL, EOMI ENT- oropharynx clear Neck- supple, no JVD Lungs- clear to auscultation and percussion Heart- regular rhythm; +murmur A/P Chest pain R/O ACS EKG showed no ischemic changes 1st troponin negative follow up CM repeat EKG in am cardiology consulted tele monitor Left side weakness Symptoms improved No neuro focal deficit on exam Continue monitor Pt If symptoms reoccur will get a CT head continue monitor closely. Lab, EKG and imaging reviewed Please refer to Rose MENDIETA documentation for other problems. Rosalino Freitas MD Level of Care Telemetry Advanced Directives Existing Living Will: No Existing Power of Weight Clerk: No VTE Prophylaxis VTE Risk Assessment Done? Y/N: Yes Risk Level: Moderate Given or contraindicated: Unfractionated heparin SQ
[2016-09-01 13:45] VITALS: BP 155/80; PULSE 56; TEMP 36.9; O2SAT 96
[2016-09-01] MEDS ORDERED: MICONAZOLE NITRATE POWDER 43 GM EXT PRN (15:15)
--- NOTE | 2016-09-01 15:35 | Pharmacy Progress Note ---
Glycemic Control Intl Consult Date of Service Sep 01, 2016. Scope Glycemic Pharmacist consulted by Shira Stokes PA-C on 09/01/16 for glycemic control and to write orders per [facility] inpatient glycemic control protocol Objective Weight (Kilograms): 92.750 Accuchecks BSG (last 24hrs): Test 09/01/16 09:59 Random Glucose 125 mg/dl (70-99) Laboratory Data (last 24hrs) Test 09/01/16 09:59 09/01/16 10:10 09/01/16 10:17 Anion Gap 11.0 mmol/L 17.0 mmol/L BUN/Creatinine Ratio 23.8 Blood Urea Nitrogen 91 mg/dl Creatinine 3.80 mg/dl Potassium Level 4.5 mmol/L Sodium Level 143 mmol/L White Blood Count 8.99 K/uL Red Blood Count 3.08 M/uL Hemoglobin 8.8 g/dL Hematocrit 27.6 % Mean Corpuscular Volume 89.6 fL Mean Corpuscular Hemoglobin 28.6 pg Mean Corpuscular Hemoglobin Concent 31.9 g/dl Platelet Count 211 K/uL Mean Platelet Volume 10.9 fL Neutrophils (%) (Auto) 73.3 % Lymphocytes (%) (Auto) 16.8 % Monocytes (%) (Auto) 5.5 % Eosinophils (%) (Auto) 3.8 % Basophils (%) (Auto) 0.3 % Neutrophils # (Auto) 6.59 K/uL Lymphocytes # (Auto) 1.51 K/uL Monocytes # (Auto) 0.49 K/uL Eosinophils # (Auto) 0.34 K/uL Basophils # (Auto) 0.03 K/uL Recent Pertinent Medications Outpatient Anti-diabetic Regimen: * NPH 26 units qAM and 22 units qPM + Regular insulin ACHS (avg. 15 units per dose) * A1c = 8.9 % 06/10/16 Assessment & Plan ASSESSMENT: * 66 yr old female admitted with chest pain, r/o ACS. Patient is well known to the glycemic service. * pt uses around 108 units of insulin per day as outpatient * during previous admissions she has required 70 -100 units per day * spoke with patient's who reports patient rarely has hypoglycemia at home * during last admission patient was changed to Lantus, however, family resumed NPH due to cost * Will initiate SQ basal/bolus insulin regimen and titrate based on BSG results - split home anticipated need of ~ 100 units per day 50/50 basal/bolus * ADA & AACE recommend a goal blood sugar range 140-180 mg/dl for the majority of critically ill & non-critically ill patients. However, more stringent targets may be selected in individual cases. May tighten range once inpatient needs are determined. PLAN FOR INPATIENT GLYCEMIC CONTROL: * Basal insulin with LANTUS SQ BID per scale * 10 units for BSG less than 140 * 15 units for BSG 140 - 180 * 25 units for BSG greater than 180 * Correctional Insulin with NOVOLOG scale ACHS or Q6hrs while NPO * Goal Range: Low 140 mg/dL - High 180 mg/dL * Correction Factor: 20 mg/dL/unit * Nutritional / Prandial insulin per carb ratio of 1 unit per 7 grams CHO consumed * Please note that the plan above was derived based on current level of insulin resistance and hospital stress. These recommendations are appropriate for inpatient admission only. Plan of care upon discharge will need to be reassessed to avoid potential outpatient hypo/hyperglycemia. Thank you.
[2016-09-01 15:53] VITALS: BP 130/65; PULSE 82; TEMP 36.4; O2SAT 98
[2016-09-01] MEDS ORDERED: EPOETIN ALFA 10,000 UNITS/ML VIAL SQ SCH (16:00)
--- NOTE | 2016-09-01 16:10 | ECHOCARDIOGRAM REPORT ---
*NOTICE TO RECEIVING [employer] This information is strictly Confidential and protected under [place] law. [place] law prohibits you from making any further disclosure of this information unless further disclosure is expressly permitted by the written consent of the person to whom it pertains or is authorized by law. A general authorization for the release of medical or other information is not sufficient for this purpose. Hospital accepts no responsibility if the information is made available to any other person, INCLUDING THE PATIENT. Interpretation Summary * Name: EDDY ARANGO Study Date: 09/01/2016 02:28 PM BP: 161/63 mmHg * Patient Location: [facility] HR: 62 * : 1950 (M/d/yyyy) Gender: Female Height: 60 in * Age: 66 yrs Ethnicity: CA Weight: 204 lb * Ordering Physician: Shira Stokes * Referring Physician: Self, Referred * Performed By: Kamryn Montaño RDCS * * Reason For Study: Chest pain * BSA: 1.9 m2 * -- Conclusions -- * The left ventricle is normal in size. * There is moderate concentric left ventricular hypertrophy. * The left ventricular wall motion is normal. * Left ventricular systolic function is normal. * Ejection Fraction = 65-70%. * Aortic valve sclerosis mild, without significant aortic valvular stenosis. * There is a heavily calcified posterior annulus and mitral apparatus without stenosis or regurgitation. * There is no mitral valve stenosis. * There is trace mitral regurgitation. * There is trace tricuspid regurgitation. Procedure Details * A complete two-dimensional transthoracic echocardiogram was performed (2D, M-mode, Doppler and color flow Doppler). Left Ventricle * The left ventricle is normal in size. * There is moderate concentric left ventricular hypertrophy. * Left ventricular systolic function is normal. * Ejection Fraction = 65-70%. * The left ventricular wall motion is normal. Right Ventricle * The right ventricle is normal in size and function. Atria * The left atrial size is normal. * Right atrial size is normal. * No ASD detected; PFO is not assessed. Mitral Valve * There is a heavily calcified posterior annulus and mitral apparatus without stenosis or regurgitation. * There is no mitral valve stenosis. * There is trace mitral regurgitation. Tricuspid Valve * The tricuspid valve anatomy is normal. * There is no tricuspid stenosis. * There is trace tricuspid regurgitation. Aortic Valve * The aortic valve is trileaflet. * Aortic valve sclerosis mild, without significant aortic valvular stenosis. * No hemodynamically significant valvular aortic stenosis. * No aortic regurgitation is present. Pulmonic Valve * The pulmonic valve is not well visualized. Great Vessels * The aortic root is normal size. Pericardium/Pleural * There is no pericardial effusion. Great Vessels * Normal inferior vena cava diameter and respiratory variation suggests normal central venous pressure. MMode 2D Measurements and Calculations IVSd 1.2 cm LVIDd 3.5 cm LVIDs 2.2 cm LVPWd 1.5 cm IVS/LVPW 0.83 FS 36.4 % EDV(Teich) 51.7 ml ESV(Teich) 16.9 ml EF(Teich) 67.2 % EDV(cubed) 43.7 ml ESV(cubed) 11.2 ml EF(cubed) 74.3 % LV mass(C)d 164.1 grams LV mass(C)dI 87.2 grams/m\S\2 SV(Teich) 34.7 ml SI(Teich) 18.5 ml/m\S\2 SV(cubed) 32.5 ml SI(cubed) 17.3 ml/m\S\2 Ao root diam 3.2 cm Ao root area 8.2 cm\S\2 ACS 1.7 cm LA dimension 3.3 cm asc Aorta Diam 3.0 cm LA/Ao 1.0 LVOT diam 1.8 cm LVOT area 2.6 cm\S\2 LVAd ap4 20.2 cm\S\2 LVLd ap4 6.2 cm EDV(MOD-sp4) 53.2 ml EDV(sp4-el) 56.1 ml LVAs ap4 10.3 cm\S\2 LVLs ap4 5.0 cm ESV(MOD-sp4) 17.8 ml ESV(sp4-el) 17.9 ml EF(MOD-sp4) 66.6 % EF(sp4-el) 68.1 % LVAd ap2 15.7 cm\S\2 LVLd ap2 6.2 cm EDV(MOD-sp2) 32.0 ml EDV(sp2-el) 33.4 ml LVAs ap2 6.6 cm\S\2 LVLs ap2 4.7 cm ESV(MOD-sp2) 8.5 ml ESV(sp2-el) 8.0 ml EF(MOD-sp2) 73.6 % EF(sp2-el) 76.1 % LVLd %diff 0.99 % EDV(MOD-bp) 41.5 ml LVLs %diff -7.92 % ESV(MOD-bp) 12.7 ml EF(MOD-bp) 69.5 % SV(MOD-sp4) 35.5 ml SI(MOD-sp4) 18.8 ml/m\S\2 SV(MOD-sp2) 23.6 ml SI(MOD-sp2) 12.5 ml/m\S\2 SV(MOD-bp) 28.8 ml SI(MOD-bp) 15.3 ml/m\S\2 SV(sp4-el) 38.2 ml SI(sp4-el) 20.3 ml/m\S\2 SV(sp2-el) 25.4 ml SI(sp2-el) 13.5 ml/m\S\2 Doppler Measurements and Calculations MV E max janet 147.5 cm/sec MV A max janet 163.7 cm/sec MV E/A 0.90 MV dec time 0.35 sec Ao V2 max 191.4 cm/sec Ao max PG 14.7 mmHg Ao max PG (full) 10.0 mmHg CHINA(V,A) 1.5 cm\S\2 [place](V,D) 1.5 cm\S\2 LV V1 max PG 4.6 mmHg LV V1 max 107.6 cm/sec PA V2 max 130.3 cm/sec PA max PG 6.8 mmHg PA acc slope 799.5 cm/sec\S\2 PA acc time 0.11 sec TR max janet 247.0 cm/sec PA pr(Accel) 29.9 mmHg
[2016-09-01] MEDS: FERROUS SULFATE 325 MG TAB PO SCH (17:12)
[2016-09-01] MEDS: INSULIN ASPART 100 UNITS/ML 3 ML PEN SC SCH ×2 (18:14→20:53)
[2016-09-01 19:40] VITALS: BP 154/71; PULSE 64; TEMP 36.8; O2SAT 97
[2016-09-01] MEDS: SIMVASTATIN 10 MG TAB PO SCH (20:53)
[2016-09-01] MEDS: CALCIUM 600MG + VIT D 400 IU TAB PO SCH (20:54)
[2016-09-01] MEDS: CARVEDILOL 12.5 MG TAB PO SCH (20:54)
[2016-09-01] MEDS: FUROSEMIDE 40 MG TAB PO SCH (20:54)
[2016-09-01] MEDS: INSULIN GLARGINE SOLOSTAR 100 UNITS/ML 3 ML PEN SC SCH (20:55)
[2016-09-01] MEDS: HEPARIN SOD 5000 UNIT/0.5 ML CARP SQ SCH (20:56)
[2016-09-01 23:34] VITALS: BP 146/53; PULSE 63; TEMP 36.4; O2SAT 97
[2016-09-02] VITALS (7 sets, daily range): BP systolic 144–179; BP diastolic 56–71; PULSE 57–61; TEMP 36.5–36.9; O2SAT 96–98
--- NOTE | 2016-09-02 00:05 | CARDIOLOGY CONSULTATION ---
DATE OF CONSULTATION: 09/01/2016 REFERRING: Dr. Golden. PRIMARY CARE PHYSICIAN: Dr. Yanet Golden. INDICATIONS: Left-sided weakness and chest heaviness. HISTORY OF PRESENT ILLNESS: The patient is a 66-year-old female whose history is notable for: 1. Longstanding type 2 diabetes mellitus. 2. Diabetic nephropathy with stage IV renal insufficiency. 3. Hypertension with past diastolic dysfunction and heart failure. 4. Chronic obstructive sleep apnea, on CPAP supplementation. The patient presents this admission, noting yesterday having been fatigued after a day spent running around with her . This morning when she attempted to get up out of bed, she felt that she was profoundly weak on the left side with a sense of heaviness across her chest. No pain, no shortness of breath. Does note some mild exertional dyspnea over the past several months. Notes no acute weight loss or gain. Notes no signs or symptoms of worsening edema per patient, above baseline. She has been recently hospitalized for diastolic and renal insufficiency associated heart failure in June of 2016 and was referred and underwent AV fistula in the left arm on 08/19/2016. The patient is currently comfortable. She notes no fevers, chills or productive cough. Notes no overt bleeding. Notes no melena, hematochezia, dysuria or hematuria. Does get Procrit shots routinely for chronic anemia. REVIEW OF SYSTEMS: Otherwise negative. ALLERGIES: CODEINE, MORPHINE, AND ACTOS. MEDICATIONS: Prior to hospitalization, amlodipine 2.5 mg per day, aspirin 81 mg per day, Os-George 500 plus D 1 tablet b.i.d., Coreg 12.5 b.i.d., docusate 100 mg b.i.d., Procrit 10,000 units every 14 days, ferrous sulfate 325 b.i.d., furosemide 40 mg b.i.d., hydralazine 50 b.i.d., Mag-Ox 400 mg p.o. q. day, meclizine p.r.n. vertigo, Protonix 20 mg p.o. q. day, simvastatin 10 mg q.p.m., insulin, and Imitrex p.r.n. PAST SURGICAL HISTORY: Notable for bilateral knee replacements, remote , cholecystectomy, cataract surgery, eye surgeries, right shoulder replacement in 1999. As noted, recent AV fistula formation 08/19/2016. FAMILY HISTORY: Positive for diabetes and coronary artery disease in a brother. SOCIAL HISTORY: The patient is a nonsmoker, nondrinker. She lives with her . PHYSICAL EXAMINATION: VITAL SIGNS: Heart rate is 60, blood pressure is 130/65. Initial blood pressure on presentation was 131/59. Blood pressures are equal and obtained via right arm. HEENT: Normocephalic, atraumatic. Nares without discharge. Throat was clear. NECK: Supple without thyromegaly or lymphadenopathy. There are no carotid bruits audible. LUNGS: Reveal mildly diminished breath sounds, but no rhonchi, rale or wheeze. CARDIOVASCULAR: Regular with a less than grade 1/6 systolic murmur. There is no diastolic murmur. ABDOMEN: Obese, soft, nontender. EXTREMITIES: Reveal trace left ankle edema with healing incision over left AV fistula insertion site in the left brachial fossa. NEUROLOGIC: The patient is answering questions, moving extremities without focal deficit. LABORATORY DATA: Hemoglobin is 8.8, white cell count is 8.9. Sodium is 143, potassium is 4.5, chloride is 110, bicarb is 22, BUN is 91, creatinine is 3.8. AST and ALT are normal. Albumin is 2.9. EKG reveals sinus rhythm with poor R-wave progression across the anterior precordial leads consistent with echocardiogram today demonstrating preserved LV systolic function, no pericardial effusion, heavy valvular calcification of the mitral valve annulus, and aortic sclerosis but no stenosis. IMPRESSION: A 66-year-old female with history of stage IV renal insufficiency, presented today having developed acute left-sided weakness as well as chest pressure discomfort this morning when attempting to rise from bed. Notes marked fatigue over the past 2 days, intermittent exertional dyspnea. Blood pressures per patient have generally been controlled. RECOMMENDATIONS: The patient will be referred for inpatient management of acute myocardial injury though initial troponins are negative x2. EKGs demonstrate no evolutionary changes. Echocardiogram demonstrates normal to hyperdynamic LV function. PLAN: Will be attempt to treat medically from a cardiac standpoint, given concerns regarding risk of dye administration at this time, though with the signs or symptoms of acute instability, we will proceed. May consider dobutamine stress testing as part of workup and initiation. We will need to follow closely for signs or symptoms of acute left-sided weakness, question TIA. Carotid duplex will be ordered in addition. We will follow patient in the hospital.
[2016-09-02] MEDS ORDERED: INSULIN ASPART 100 UNITS/ML 3 ML PEN SC SCH (06:00)
[2016-09-02 06:16] LABS: HEMATOCRIT 25.4 % (37-47); MEAN CELL VOLUME 90.1 fL (80-100); MEAN CORPUSCULAR HEMOGLOBIN 29.4 pg (25-34); MEAN CORPUSCULAR HGB CONC 32.7 g/dl (32-36); MEAN PLATELET VOLUME 10.3 fL (7.4-10.4); PLATELET COUNT 189 K/uL (130-400); RED BLOOD COUNT 2.82 M/uL (4.2-5.4); WHITE BLOOD COUNT 7.67 K/uL (4.8-10.8)
[2016-09-02 06:46] LABS: BUN/CREATININE RATIO 22.6 (10-20); CALCIUM 8.7 mg/dl (8.5-10.1); POTASSIUM 4.6 mmol/L (3.5-5.1)
[2016-09-02] MEDS ORDERED: NVLNI SC ×2 (07:37)
[2016-09-02] MEDS ORDERED: NVLRPUC SC (07:37)
[2016-09-02] MEDS: AMLODIPINE BESYLATE 5 MG TAB PO SCH (07:47)
[2016-09-02] MEDS: MAGNESIUM OXIDE 400 MG TAB PO SCH (07:47)
[2016-09-02] MEDS: PANTOprazole SOD 40 MG TAB PO SCH (07:47)
[2016-09-02] MEDS: FUROSEMIDE 40 MG TAB PO SCH ×2 (07:47→17:11)
[2016-09-02] MEDS: FERROUS SULFATE 325 MG TAB PO SCH ×2 (07:47→17:10)
[2016-09-02] MEDS: MULTIVITAMIN TAB PO SCH (07:47)
[2016-09-02] MEDS: CALCIUM 600MG + VIT D 400 IU TAB PO SCH ×2 (07:47→21:24)
[2016-09-02] MEDS: CARVEDILOL 12.5 MG TAB PO SCH ×2 (07:47→21:24)
[2016-09-02] MEDS: CHOLECALCIFEROL 1000 INTER.UNIT TAB PO SCH (07:48)
[2016-09-02 07:52] LABS: ESTIMATED AVERAGE GLUCOSE 134 mg/dl; HA1C FLAG Normal (Normal)
[2016-09-02] MEDS: HEPARIN SOD 5000 UNIT/0.5 ML CARP SQ SCH ×2 (07:52→21:26)
[2016-09-02] MEDS: INSULIN GLARGINE SOLOSTAR 100 UNITS/ML 3 ML PEN SC SCH ×2 (07:53→21:26)
--- NOTE | 2016-09-02 08:59 | Pharmacy Progress Note ---
Glycemic Control Progress Note Date of Service Sep 02, 2016. Scope Glycemic Pharmacist consulted for glycemic control to write orders per [facility] inpatient glycemic control protocol. Objective Accuchecks BSG (last 24hrs): Test 09/01/16 09:59 09/01/16 16:18 09/01/16 20:18 09/02/16 05:40 Random Glucose 125 mg/dl (70-99) 143 mg/dl (70-99) Bedside Glucose 92 mg/dl (70-90) 131 mg/dl (70-90) Test 09/02/16 06:06 09/02/16 07:17 Bedside Glucose 157 mg/dl (70-90) 154 mg/dl (70-90) HbA1c: Test 09/02/16 05:40 Hemoglobin A1c 6.3 % (4.5-5.6) H Recent Pertinent Medications Basal insulin with LANTUS SQ BID per scale (10-25 units) Bolus Insulin with NOVOLOG scale ACHS or Q6hrs while NPO * Goal Range: Low 140 mg/dL - High 180 mg/dL * Correction Factor: 20 mg/dL/unit * Nutritional / Prandial insulin per carb ratio of 1 unit per 7 grams CHO consumed Outpatient Anti-Diabetic Meds Basal Insulin * NPH 26 units qAM and 22 units qPM Bolus Insulin * Regular insulin ACHS (average 15 units per dose) Per discussion with patient's , she rarely has hypoglycemia at home. During last admission to [facility] she was changed from NPH to Lantus, however, family resumed NPH due to cost of insulin. Assessment & Plan ASSESSMENT: * 66 yr old female admitted with chest pain, r/o ACS. Patient is well known to the glycemic service. See note from 09/01 for background. * Recent improvement in A1c from 8.9 % to 6.3 %. * Initial inpatient regimen was based of off anticipated need of ~ 100 units per day split 50% basal and 50% bolus with slight reduction due to patient being NPO and euglycemic on admission. * Pt has received 12 units of insulin since admission (not indicative of 24 hour needs) with BSGs ranging from 92 to 157 mg/dL * Changes needed to insulin regimen: * Fasting BSG = 157 mg/dL. This is slightly above goal for patient based on age and co-morbidities. Will increase Lantus dose. * Post prandial BSG are in range. Patient was NPO overnight. Advanced to clears today - will tighten CF/CR starting with dinner. During past admissions, patient has required tighter bolus insulin. PLAN FOR INPATIENT GLYCEMIC CONTROL: * Basal insulin with LANTUS SQ BID per scale * 15 units for BSG less than 180 * 20 units for BSG greater than 180 * Correctional Insulin with NOVOLOG scale ACHS or Q6hrs * Change to Goal Range: Low 120 mg/dL - High 140 mg/dL * Correction Factor: 15 mg/dL/unit * Nutritional / Prandial insulin per carb ratio of 1 unit per 5 grams CHO consumed DISCHARGE RECOMMENDATIONS: * Adequate outpatient glycemic control evidenced by A1c of 6.3 % (09/02/16) * Recommend continuing current home regimen on discharge * NPH 26 units SQ qAM, 22 units SQ qPM * Regular insulin SQ ACHS per sliding scale * Please note that the plan above was derived based on current level of insulin resistance and hospital stress. These recommendations are appropriate for inpatient admission only. Plan of care upon discharge will need to be reassessed to avoid potential outpatient hypo/hyperglycemia. Thank you.
[2016-09-02] MEDS ORDERED: INSULIN N SQ SCH (09:00)
[2016-09-02] MEDS ORDERED: NURSING VERBAL MED ORDER ONE (10:30)
[2016-09-02] MEDS: INSULIN ASPART 100 UNITS/ML 3 ML PEN SC SCH ×3 (11:56→21:00)
--- NOTE | 2016-09-02 15:24 | DIAGNOSTIC IMAGING REPORT ---
CT OF THE HEAD WITHOUT CONTRAST CLINICAL HISTORY: Left sided weakness since yesterday am. COMPARISON STUDY: Head CT June 09, 2016 and MRI of the brain June 10, 2016. CT DOSE: 537.48 mGy.cm TECHNIQUE: Helical axial images of the head were obtained without IV contrast. Automated exposure control was utilized for the study. A dose lowering technique was utilized adhering to the principles of ALARA. FINDINGS: No acute intracranial hemorrhage, midline shift or mass effect is present. Ventricular system is stable. Basilar cisterns are patent. There are no extra-axial collections. 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 There are no CT findings to suggest acute dural sinus thrombosis or acute territorial infarct. There are no significant calvarial abnormalities. Visualized portions of the sinuses and mastoid air cells are clear. IMPRESSION: No acute intracranial findings. Electronically signed by: Raghu Beasley M.D. 09/02/2016 3:23 PM Dictated Date/Time: 09/02/2016 3:17 PM
--- NOTE | 2016-09-02 15:39 | Neurology Consultation ---
Neurology Consultation Date of Consultation: Sep 02, 2016. Attending Physician: Samantha Valdez DO Primary Care Physician: Yanet Golden M.D. Reason for Consultation: new onset left sided weakness and numbness of left hand History of Present Illness Source: patient Sepideh is a 66 year old female with PMH of diastolic CHF (EF: 60-64%), DM II, CKD IV, HTN, HLD and chronic anemia who presents with chest pain and left sided weakness x 2 days. she had chest tightness that felt like "an elephant sitting on my chest". It was intermittent, non-radiating and exacerbated with exertion but was relieved by rest. Also states that she started to feel weakness in her L side yesterday but was still able to ambulate by walker as usual. She states in the am she woke with L-sided weakness and required her 's help to sit up in bed. Was still able to ambulate by walker in house but then switched to wheelchair before presenting to ED. She states she was laying on the left side over night but that is normal for her. denies slurred speech, swallowing issues, current CP, SOB, abdominal pain, falls, head injury, vision change other than her chronic issues, N, V. Past Medical/Surgical History Medical Problems: (1) Acute kidney injury Status: Acute (2) Acute renal failure Status: Acute (3) Altered mental status Status: Acute (4) Chronic renal failure Status: Acute (5) Dizziness Status: Acute (6) Fluid overload Status: Acute (7) Heart failure Status: Acute (8) Hypercalcemia Status: Acute (9) Hyperglycemia Status: Acute (10) Precordial chest pain Status: Acute (11) UTI (urinary tract infection) Status: Acute Family History Father: cancer Mother: diabetes, pertinent history of Sibling(s): coronary artery disease, heart disease, diabetes Social History Smoking Status: Never smoker Alcohol Use: none Drug Use: none Marital Status: Housing Status: lives with family Allergies Coded Allergies: Codeine (Verified Allergy, Intermediate, hives, 08/08/16) Pioglitazone (Unverified Allergy, Intermediate, Rash/Fluid retention, 08/08) RETAINS FLUID Morphine (Verified Allergy, Mild, 08/08/16) Current Inpatient Medications Current Inpatient Medications Medications (Trade) Dose Ordered Sig/Aleks Route Start Time Stop Time Status Last Admin Dose Admin Miscellaneous (Iv Fluids Completed) 1 ea PRN PRN N/A 09/01/16 12:15 09/01/17 12:14 Heparin Sodium (Porcine) (Heparin Sq 5000 Unit/0.5ml) 5,000 unit Q12 SQ 09/01/16 21:00 10/01/16 20:59 09/02/16 07:52 5,000 UNIT Acetaminophen (Tylenol Tab) 650 mg Q4H PRN PO 09/01/16 12:15 10/01/16 12:14 Ondansetron HCl (Zofran Inj) 4 mg Q6H PRN IV 09/01/16 12:15 10/01/16 12:14 Nitroglycerin (Nitrostat Tab) 0.4 mg UD PRN SL 09/01/16 12:15 10/01/16 12:14 Amlodipine Besylate (Norvasc Tab) 2.5 mg DAILY PO 09/02/16 09:00 10/02/16 08:59 09/02/16 07:47 2.5 MG Aspirin (Ecotrin Tab) 81 mg QPM PO 09/02/16 21:00 10/02/16 20:59 Calcium/Vitamin D (Caltrate Plus Tab) 1 tab BID PO 09/01/16 21:00 10/01/16 20:59 09/02/16 07:47 1 TAB Carvedilol (Coreg Tab) 12.5 mg BID PO 09/01/16 21:00 10/01/16 20:59 09/02/16 07:47 12.5 MG Docusate Sodium (coLACE CAP) 100 mg BID PRN PO 09/01/16 12:30 10/01/16 12:29 Furosemide (Lasix Tab) 40 mg BID17 PO 09/01/16 21:00 10/01/16 20:59 09/02/16 07:47 40 MG Hydralazine HCl (Apresoline Tab) 50 mg BID PO 09/01/16 21:00 10/01/16 20:59 09/02/16 07:47 50 MG Magnesium Oxide (Mag-Ox Tab) 400 mg QAM PO 09/02/16 09:00 10/02/16 08:59 09/02/16 07:47 400 MG Meclizine HCl (Antivert Tab) 25 mg TID PRN PO 09/01/16 12:30 10/01/16 12:29 Multivitamins (Multivitamin Tab) 1 tab QAM PO 09/02/16 09:00 10/02/16 08:59 09/02/16 07:47 1 TAB Nystatin (Mycostatin Powder) 1 appln TID PRN EXT 09/01/16 12:30 10/01/16 12:29 Simvastatin (Zocor Tab) 10 mg QPM PO 09/01/16 21:00 10/01/16 20:59 09/01/16 20:53 10 MG Sumatriptan Succinate (Imitrex Tab) 25 mg UD PRN PO 09/01/16 12:30 10/01/16 12:29 Cholecalciferol (Vitamin D Tab) 5,000 inter.unit QAM PO 09/02/16 09:00 10/02/16 08:59 09/02/16 07:48 5,000 INTER.UNIT Ferrous Sulfate (Feosol Tab) 325 mg BIDM PO 09/01/16 17:00 10/01/16 17:59 09/02/16 07:47 325 MG Pantoprazole Sodium (Protonix Tab) 40 mg QAM PO 09/02/16 09:00 10/02/16 08:59 09/02/16 07:47 40 MG Glucose (Glucose 40% Gel) 15-30 GRAMS 15 GRAMS... UD PRN PO 09/01/16 12:45 10/01/16 12:44 Glucose (Glucose Chew Tab) 4-8 Tablets 4 Tabl... UD PRN PO 09/01/16 12:45 10/01/16 12:44 Dextrose (Dextrose 50% 50ML Syringe) 25-50ML OF 50% DW IV FOR... UD PRN IV 09/01/16 12:45 10/01/16 12:44 Glucagon (Glucagon Inj) 1 mg UD PRN SQ 09/01/16 12:45 10/01/16 12:44 Miscellaneous Information (Consult Glycemic Management Pharmacy) 1 ea UD PRN N/A 09/01/16 13:19 10/01/16 13:18 Miconazole Nitrate (Desenex Powder) 1 appln PRN PRN EXT 09/01/16 15:15 10/01/16 15:14 Insulin Glargine (Lantus Solostar Pen) see protocol text BID ID 09/01/16 21:00 10/01/16 20:59 09/02/16 07:53 15 UNITS Insulin Aspart (novoLOG ASPART) SLIDING SCALE If C... ACHS ID 09/02/16 11:00 10/02/16 10:59 09/02/16 11:56 1 UNITS Physical Exam Vital Signs (Past 24 Hrs): Date Time Temp Pulse Resp B/P (MAP) Pulse Ox O2 Delivery O2 Flow Rate FiO2 09/02/16 12:30 Room Air 09/02/16 11:06 36.5 57 18 144/56 (85) 98 Room Air 09/02/16 07:45 Room Air 09/02/16 07:17 36.9 61 18 163/71 (101) 98 Room Air 09/02/16 04:17 36.5 60 16 152/66 (94) 96 Room Air 09/02/16 04:00 Room Air 09/02/16 00:00 Room Air 09/01/16 23:34 36.4 63 16 146/53 (84) 97 Room Air 09/01/16 20:00 Room Air 09/01/16 19:40 36.8 64 20 154/71 (98) 97 Room Air 09/01/16 16:00 Room Air 09/01/16 15:53 36.4 82 20 130/65 (86) 98 Room Air Physical Exam: Constitutional: appearance nourished, healthy and obese Ears, Nose, Mouth and Throat: mucous membranes moist, no injection and skin normal, eyes normal Cardiovascular: normal S-1 and S-2 and regular rate and rhythm Respiratory: clear to auscultation (CTA) and no rales, rhonchi or wheeze Musculoskeletal: decreased distal pulses Skin: no stigmata of neurocutaneous disease noted and normal and intact Eyes: extraocular muscles intact (EOMI) and pupils equal, round and reactive to light (PERRL) NEUROLOGIC EXAMINATION: Mental status: Alert and interactive Oriented to full date and location Oriented to person Speech fluent with no evidence of aphasia Cranial Nerves smile eye brow raise symmetric, tongue midline Reflexes: Deep tendon reflexes were symmetrical and graded 2/5. Sensory: decreased to light touch, cool touch, GT proprioception absent bilaterally Coordination: finger to nose without bi pass Gait/Stance: Posture normal. sitting in bedside chair Strength: bicep triceps hand web application dev specialist left 4+/5, right biceps triceps frozen shoulder 5/5, hip flex bilaterally 5/5 Laboratory Results Past 24 Hours: 09/02/16 05:40 09/02/16 05:40 Test 09/01/16 21:58 09/02/16 05:40 09/02/16 11:35 Creatine Kinase MB 2.2 ng/ml (0.5-3.6) Creatine Kinase MB Ratio (0-3.0) Troponin I < 0.015 ng/ml (0-0.045) Red Blood Count 2.82 M/uL (4.2-5.4) Mean Corpuscular Volume 90.1 fL (80-100) Mean Corpuscular Hemoglobin 29.4 pg (25-34) Mean Corpuscular Hemoglobin Concent 32.7 g/dl (32-36) RDW Standard Deviation 48.2 fL (36.4-46.3) RDW Coefficient of Variation 14.6 % (11.5-14.5) Mean Platelet Volume 10.3 fL (7.4-10.4) Anion Gap 9.0 mmol/L (3-11) Est Creatinine Clear Calc Drug Dose 13.8 ml/min Estimated GFR () 12.6 Estimated GFR (Non- 10.9 BUN/Creatinine Ratio 22.6 (10-20) Estimated Average Glucose 134 mg/dl Hemoglobin A1c 6.3 % (4.5-5.6) Calcium Level 8.7 mg/dl (8.5-10.1) Bedside Glucose 190 mg/dl (70-90) Imaging no imaging available -pending TTE- * The left ventricle is normal in size. * There is moderate concentric left ventricular hypertrophy. * The left ventricular wall motion is normal. * Left ventricular systolic function is normal. * Ejection Fraction = 65-70%. * Aortic valve sclerosis mild, without significant aortic valvular stenosis. * There is a heavily calcified posterior annulus and mitral apparatus without stenosis or regurgitation. * There is no mitral valve stenosis. * There is trace mitral regurgitation. * There is trace tricuspid regurgitation. * NO ASD Impression 66 year old with left sided weakness, and hand numbness Plan 1. MRI without contrast due to renal function 2. carotid doppler- for any vascular issues from new event 3. already on aspirin 81 mg 4. echo -cardiology consulted for medical management 5. optimize DL, DM, HTN 6. further recommendations once imaging is available 7. PT/OT speech I have seen and discussed above patient with Dr Vincenzo Izaguirre, neurology
--- NOTE | 2016-09-02 16:13 | CARDIOLOGY PROGRESS NOTE ---
DATE: 09/02/2016 DATE: 09/02/2016. The patient seen and examined. Chart, medications, telemetry reviewed. SUBJECTIVE: The patient notes no chest pressure or pain this last evening. Does continue to complain of a sense of weakness in both left arm and leg. Notes no headache or visual changes. Notes no tachypalpitations. Telemetry reveals no arrhythmias. She notes no worsening edema. Notes no bleeding difficulties. ALLERGIES: MEDICATIONS: PHYSICAL EXAMINATION: VITAL SIGNS: Heart rate is 60, blood pressure is 163/71 this morning, 143/56 afternoon. HEAD, EYES, EARS, NOSE, AND THROAT EXAMINATION: Normocephalic, atraumatic. NECK: Thick. There is no distinct jugular venous distention. LUNGS: Clear to auscultation. CARDIOVASCULAR: Regular. There is grade 1/6 systolic murmur. There is no diastolic murmur. ABDOMEN: Soft, nontender. There is no palpable hepatosplenomegaly. EXTREMITIES: Without cyanosis or clubbing. There is trivial pedal edema only. There is a functioning fistula in the left forearm with audible bruit. DATA: EKG revealed sinus rhythm/sinus bradycardia, rate 61 with occasional ventricular ectopic beats. No ST segment abnormalities or Q-waves. Echocardiogram since admission has demonstrated normal to hyperdynamic LV function, cardiac enzymes despite renal insufficiency demonstrate normal troponins. IMPRESSION: A 66-year-old female presented with symptoms of simultaneous complaints of heaviness and chest pressure as well as diffuse weakness, left arm and left leg, inability to move in bed. Despite symptom severity and length overall cardiac enzymes, EKGs and echo have not reflected myocardial injury or ischemia. She continues to have residual left arm and leg weakness by description. Neurologic evaluation is ongoing. From a cardiac standpoint blood pressure is controlled. Heart rate is controlled with the patient on appropriate medical therapy. Will intensify statin as clinical course progresses.
--- NOTE | 2016-09-02 16:31 | Neurology Consultation ---
Neurology Consultation Date of Service Sep 02, 2016. Neurology Consultation I have seen this woman with Ashely Castellano and examined her in addition to reviewing her history I suspect that she has had a small right hemisphere cva possibly deep with a mild left hemiparesis manifested by clumsiness of gait with reduced facility of rapid repetetive movements and an equivocal left toe sign She is certainly at risk with her multiple vascular and renal issues We are going to check a non contrast MRI and will follow up tomorrow if positive for cva will recommend the usual dual antiplatelet rx and maintaining her current vascular risk factor reductions per her pcp and the cardiology and renal services Vincenzo Izaguirre MD
--- NOTE | 2016-09-02 18:43 | Progress Note ---
Medicine Progress Note Date & Time of Visit: Sep 02, 2016 at 13:55. Subjective This is a 66yo F with PMH of diastolic CHF, DM II, CKD IV, HTN, HLD and chronic anemia who presents with chest pain and left sided weakness x 2 days. -pt reports chest heaviness for the past 3 days intermittent, started while in [facility], never had before, seemed to be worse with hunching over -CP assoc with "not being able to let air out" --reports new L whole hand numbness, L arm and L leg weakness. -denies headache, facial drooping, drooling, difficulty speaking or swallowing, new visual changes (chronic blurry vision present) -typically ambulates with a walker -reports not being able to walk at this time because she can't walk straight-- has poor balance at baseline -feeling very weak overall Objective Last 8 Hrs Date Time Temp Pulse Resp B/P (MAP) Pulse Ox O2 Delivery O2 Flow Rate FiO2 09/02/16 12:30 Room Air 09/02/16 11:06 36.5 57 18 144/56 (85) 98 Room Air 09/02/16 07:45 Room Air 09/02/16 07:17 36.9 61 18 163/71 (101) 98 Room Air Physical Exam: GEN: obese, in no acute distress, alert and appropriate, sitting in bedside chair HEENT: NC/AT, PERRL, normal sclerae, MMM CARDIO: reg rate, S1/2 heard without m/g/r, no edema LUNGS: CTA bilaterally, no crackles, rales or wheezes, good diaphragmatic excursion ABD: soft, non-tender, non-distended but protuberant, no rebound or guarding +BS EXTREMITY: RP and DP palpable 2+ bilat, no LE swelling or edema, extremities are warm and well-perfused NEURO: CN 2-12 intact x low hearing in L ear (known prior hearing loss), sensation intact throughout, reflexes could not be elicited. Gait was not assessed as she was a fall risk. MUSC: 5/5 strength on the right with some guarding of her RUE and inability to straighten her RUE out in front. LUE and LLE have 4/5 strength throughout. Finger spread is weak in the L hand compared to the right SKIN: warm and dry Laboratory Results: 09/02/16 05:40 09/02/16 05:40 Test 09/01/16 09:59 09/01/16 10:10 09/01/16 10:17 09/01/16 21:58 Total Bilirubin 0.2 mg/dl (0.2-1) Direct Bilirubin < 0.1 mg/dl (0-0.2) Aspartate Amino Transf (AST/SGOT) 19 U/L (15-37) Alanine Aminotransferase (ALT/SGPT) 25 U/L (12-78) Alkaline Phosphatase 70 U/L (45-117) Total Creatine Kinase 82 U/L (26-192) Pro-B-Type Natriuretic Peptide 1340 pg/ml (0-900) Total Protein 6.6 gm/dl (6.4-8.2) Albumin 2.9 gm/dl (3.4-5.0) Lipase 142 U/L (73-393) Bedside Hemoglobin 8.2 g/dl (12.0-16.0) Bedside Hematocrit 24 % (37-47) Bedside Sodium 140 mEq/L (135-144) Bedside Potassium 4.7 mEq/L (3.3-5.0) Bedside Chloride 108 mEq/L (101-112) Bedside Total CO2 21 mEq/l (24-31) Bedside Blood Urea Nitrogen 95 mg/dl (7-18) Bedside Creatinine 4.0 mg/dl (0.6-1.3) Bedside Glucose (other) 127 mg/dl (70-99) Bedside Ionized Calcium (Lucinda) 1.08 mmol/l (1.12-1.32) Immature Granulocyte % (Auto) 0.3 % White Blood Count 8.99 K/uL (4.8-10.8) Red Blood Count 3.08 M/uL (4.2-5.4) Hemoglobin 8.8 g/dL (12.0-16.0) Hematocrit 27.6 % (37-47) Mean Corpuscular Volume 89.6 fL (80-100) Mean Corpuscular Hemoglobin 28.6 pg (25-34) Mean Corpuscular Hemoglobin Concent 31.9 g/dl (32-36) Platelet Count 211 K/uL (130-400) Mean Platelet Volume 10.9 fL (7.4-10.4) Neutrophils (%) (Auto) 73.3 % Lymphocytes (%) (Auto) 16.8 % Monocytes (%) (Auto) 5.5 % Eosinophils (%) (Auto) 3.8 % Basophils (%) (Auto) 0.3 % Neutrophils # (Auto) 6.59 K/uL (1.4-6.5) Lymphocytes # (Auto) 1.51 K/uL (1.2-3.4) Monocytes # (Auto) 0.49 K/uL (0.11-0.59) Eosinophils # (Auto) 0.34 K/uL (0-0.5) Basophils # (Auto) 0.03 K/uL (0-0.2) Immature Granulocyte # (Auto) 0.03 K/uL (0.00-0.02) Red Blood Cell Morphology Unremarkable Creatine Kinase MB 2.2 ng/ml (0.5-3.6) Creatine Kinase MB Ratio (0-3.0) Troponin I < 0.015 ng/ml (0-0.045) Test 09/02/16 05:40 09/02/16 20:20 Red Blood Count 2.82 M/uL (4.2-5.4) Mean Corpuscular Volume 90.1 fL (80-100) Mean Corpuscular Hemoglobin 29.4 pg (25-34) Mean Corpuscular Hemoglobin Concent 32.7 g/dl (32-36) RDW Standard Deviation 48.2 fL (36.4-46.3) RDW Coefficient of Variation 14.6 % (11.5-14.5) Mean Platelet Volume 10.3 fL (7.4-10.4) Anion Gap 9.0 mmol/L (3-11) Est Creatinine Clear Calc Drug Dose 13.8 ml/min Estimated GFR () 12.6 Estimated GFR (Non- 10.9 BUN/Creatinine Ratio 22.6 (10-20) Estimated Average Glucose 134 mg/dl Hemoglobin A1c 6.3 % (4.5-5.6) Calcium Level 8.7 mg/dl (8.5-10.1) Bedside Glucose 99 mg/dl (70-90) Last 24 Hours Test 09/01/16 16:00 09/01/16 16:18 09/01/16 16:24 09/01/16 20:18 Creatine Kinase MB Ratio Bedside Glucose 92 mg/dl 131 mg/dl Creatine Kinase MB 2.1 ng/ml Troponin I < 0.015 ng/ml Test 09/01/16 21:58 09/02/16 05:40 09/02/16 06:06 09/02/16 07:17 Creatine Kinase MB 2.2 ng/ml Creatine Kinase MB Ratio Troponin I < 0.015 ng/ml White Blood Count 7.67 K/uL Red Blood Count 2.82 M/uL Hemoglobin 8.3 g/dL Hematocrit 25.4 % Mean Corpuscular Volume 90.1 fL Mean Corpuscular Hemoglobin 29.4 pg Mean Corpuscular Hemoglobin Concent 32.7 g/dl RDW Standard Deviation 48.2 fL RDW Coefficient of Variation 14.6 % Platelet Count 189 K/uL Mean Platelet Volume 10.3 fL Sodium Level 143 mmol/L Potassium Level 4.6 mmol/L Chloride Level 110 mmol/L Carbon Dioxide Level 24 mmol/L Anion Gap 9.0 mmol/L Blood Urea Nitrogen 91 mg/dl Creatinine 4.00 mg/dl Est Creatinine Clear Calc Drug Dose 13.8 ml/min Estimated GFR () 12.6 Estimated GFR (Non- 10.9 BUN/Creatinine Ratio 22.6 Random Glucose 143 mg/dl Estimated Average Glucose 134 mg/dl Hemoglobin A1c 6.3 % Calcium Level 8.7 mg/dl Bedside Glucose 157 mg/dl 154 mg/dl Test 09/02/16 11:35 Bedside Glucose 190 mg/dl Assessment & Plan This is a 66yo F with PMH of diastolic CHF, DM II, CKD IV, HTN, HLD and chronic anemia who presents with chest pain and left sided weakness x 2 days. 1. Atypical chest tightness--monitored on telemetry with no events overnight. Serial cardiac enzymes were checked and negative. Cardiology evaluated her and with no evidence of ischemia on EKG or echo, he opted for optimizing BP management while weakness is being worked up from a Neurology perspective. Tightness has resolved at this time. Defer to Cards for recommending ideal risk stratification test if required. Multiple risk factors for cardiovascular disease 2. L Sided Weakness/numbness in L hand/tongue: uncertain cause-poss CVA, pt does have carpal tunnel syndrome in both wrists and denies wearing wrist guards. CT head reveals no acute stroke. Pt compliant with ASA 81 at home and h /o ?able stroke with no residual deficits in 2016 based on imaging. Interestingly though she has some chronic word-finding difficulty and chronic balance issues. Neuro consulted and is working this up further with an MRI 3. Diastolic CHF: chronic, no acute exacerbation at this time. Cont medical management and good BP control efforts. 4. Chronic anemia: -Hgb 8.8 currently, which is slightly above baseline. -recent iron levels reviewed as outpatient. Cont Fe supplementation -Receives Procrit injections every 2 weeks-received on admission -Monitor H&H. 5. CKD IV: -Dialysis fistula placed in L forearm by Dr. Chambers 2 weeks ago. -Plan to start dialysis if needed moving forward. She has a creatinine of 4 with a baseline of 3. -appreciate Nephro recs. 6. DM II: A1C 6.3 reflecting excellent control; SSI while in-patient. Placed glycemic control consult with pharm. 7. HTN: controlled, cont home meds for management 8. KUSHAL-nightly CPAP DVT Ppx: Heparin Code status: FULL PCP: Dr. Golden Dispo: Likely to home in 1-2 days. Samantha Valdez DO [facility] Hospitalist ADDENDUM: MRI reveals new acute stroke in the R cerebellar peduncle. Plavix added to ASA 81. Cont simvastatin. Lipids ordered and will increase statin to higher intensity based on results and tolerance. Consultants: Cardiology-Dr. Wang Neurology-Dr. Izaguirre Nephrology-Dr. Kessler Current Inpatient Medications: Current Inpatient Medications Medications (Trade) Dose Ordered Sig/Aleks Route Start Time Stop Time Status Last Admin Dose Admin Miscellaneous (Iv Fluids Completed) 1 ea PRN PRN N/A 09/01/16 12:15 09/01/17 12:14 Heparin Sodium (Porcine) (Heparin Sq 5000 Unit/0.5ml) 5,000 unit Q12 SQ 09/01/16 21:00 10/01/16 20:59 09/02/16 07:52 5,000 UNIT Acetaminophen (Tylenol Tab) 650 mg Q4H PRN PO 09/01/16 12:15 10/01/16 12:14 Ondansetron HCl (Zofran Inj) 4 mg Q6H PRN IV 09/01/16 12:15 10/01/16 12:14 Nitroglycerin (Nitrostat Tab) 0.4 mg UD PRN SL 09/01/16 12:15 10/01/16 12:14 Amlodipine Besylate (Norvasc Tab) 2.5 mg DAILY PO 09/02/16 09:00 10/02/16 08:59 09/02/16 07:47 2.5 MG Aspirin (Ecotrin Tab) 81 mg QPM PO 09/02/16 21:00 10/02/16 20:59 Calcium/Vitamin D (Caltrate Plus Tab) 1 tab BID PO 09/01/16 21:00 10/01/16 20:59 09/02/16 07:47 1 TAB Carvedilol (Coreg Tab) 12.5 mg BID PO 09/01/16 21:00 10/01/16 20:59 09/02/16 07:47 12.5 MG Docusate Sodium (coLACE CAP) 100 mg BID PRN PO 09/01/16 12:30 10/01/16 12:29 Furosemide (Lasix Tab) 40 mg BID17 PO 09/01/16 21:00 10/01/16 20:59 09/02/16 07:47 40 MG Hydralazine HCl (Apresoline Tab) 50 mg BID PO 09/01/16 21:00 10/01/16 20:59 09/02/16 07:47 50 MG Magnesium Oxide (Mag-Ox Tab) 400 mg QAM PO 09/02/16 09:00 10/02/16 08:59 09/02/16 07:47 400 MG Meclizine HCl (Antivert Tab) 25 mg TID PRN PO 09/01/16 12:30 10/01/16 12:29 Multivitamins (Multivitamin Tab) 1 tab QAM PO 09/02/16 09:00 10/02/16 08:59 09/02/16 07:47 1 TAB Nystatin (Mycostatin Powder) 1 appln TID PRN EXT 09/01/16 12:30 10/01/16 12:29 Simvastatin (Zocor Tab) 10 mg QPM PO 09/01/16 21:00 10/01/16 20:59 09/01/16 20:53 10 MG Sumatriptan Succinate (Imitrex Tab) 25 mg UD PRN PO 09/01/16 12:30 10/01/16 12:29 Cholecalciferol (Vitamin D Tab) 5,000 inter.unit QAM PO 7/25/17 09:00 10/02/16 08:59 09/02/16 07:48 5,000 INTER.UNIT Ferrous Sulfate (Feosol Tab) 325 mg BIDM PO 09/01/16 17:00 10/01/16 17:59 09/02/16 07:47 325 MG Pantoprazole Sodium (Protonix Tab) 40 mg QAM PO 09/02/16 09:00 10/02/16 08:59 09/02/16 07:47 40 MG Glucose (Glucose 40% Gel) 15-30 GRAMS 15 GRAMS... UD PRN PO 09/01/16 12:45 10/01/16 12:44 Glucose (Glucose Chew Tab) 4-8 Tablets 4 Tabl... UD PRN PO 09/01/16 12:45 10/01/16 12:44 Dextrose (Dextrose 50% 50ML Syringe) 25-50ML OF 50% DW IV FOR... UD PRN IV 09/01/16 12:45 10/01/16 12:44 Glucagon (Glucagon Inj) 1 mg UD PRN SQ 09/01/16 12:45 10/01/16 12:44 Miscellaneous Information (Consult Glycemic Management Pharmacy) 1 ea UD PRN N/A 09/01/16 13:19 10/01/16 13:18 Miconazole Nitrate (Desenex Powder) 1 appln PRN PRN EXT 09/01/16 15:15 10/01/16 15:14 Insulin Glargine (Lantus Solostar Pen) see protocol text BID SC 09/01/16 21:00 10/01/16 20:59 09/02/16 07:53 15 UNITS Insulin Aspart (novoLOG ASPART) SLIDING SCALE If C... ACHS SC 09/02/16 11:00 10/02/16 10:59 09/02/16 11:56 1 UNITS
--- NOTE | 2016-09-02 19:22 | DIAGNOSTIC IMAGING REPORT ---
BRAIN WITHOUT CONTRAST CLINICAL HISTORY: 66 years-old Female presenting with left-sided weakness for one to 2 days, history of TIAs, blurred vision, no headache, no trauma. TECHNIQUE: Multisequence, multiplanar MR imaging of the brain was performed without the use of intravenous contrast. IV contrast: None. COMPARISON: CT head from 09/02/2016 and MR brain from 06/10/2016. FINDINGS: Ventricles and sulci normal in size. Few multiple lacunar infarcts noted in the drea and left frontal lobe. Additional old infarct in the right occipital lobe. Small left cerebellar hemisphere infarct. No mass effect or midline shift. Restricted diffusion in the right cerebellar peduncle consistent with acute infarct. Associated T2 hyperintensity within this region. No extra-axial fluid collection. Paranasal sinuses and mastoid air cells clear. Calvarium intact. IMPRESSION: 1. Acute infarct in the right cerebellar peduncle, which is likely greater than 6 hours old given the presence of hyperintensity on T2-weighted imaging. 2. Multifocal chronic infarcts unchanged from prior exam in June 28, 2016. The report will be called/faxed according to standard departmental protocol. Electronically signed by: Amadeo George M.D. 09/02/2016 7:21 PM Dictated Date/Time: 09/02/2016 7:14 PM
--- NOTE | 2016-09-02 19:45 | DIAGNOSTIC IMAGING REPORT ---
CAROTID DOPPLER NECK ART CLINICAL HISTORY: 66 years-old Female presenting with stroke like symptoms left sided weakness. TECHNIQUE: Real-time grayscale and color and spectral Doppler ultrasound imaging of the bilateral carotid arteries was performed. NASCET criteria was used in evaluating this study. COMPARISON: 06/09/2016. FINDINGS: Right: Common carotid: Atherosclerotic plaque noted immediately proximal to the carotid bulb. Peak systolic velocity 82 cm/s. Internal carotid artery: Atherosclerotic plaque along the proximal ICA. Peak systolic velocity 93 cm/s. External carotid artery: Patent. Peak systolic velocity 74 cm/s. Systolic ratio: 1.1. Left: Common carotid: Atherosclerotic plaque immediately proximal to and at the level of the carotid bulb. Peak systolic velocity 79 cm/s. Internal carotid artery: Atherosclerosis along the proximal ICA. Peak systolic velocity 71 cm/s. External carotid artery: Patent. Peak systolic velocity 76 cm/s. Systolic ratio: 0.9. Bilateral antegrade flow within the vertebral arteries. Reference ranges: Normal ICA peak systolic velocity less than 125 cm/s. Normal ICA peak systolic velocity to common carotid artery velocity ratio is less than 2: less than 2 equates to less than 50% stenosis, 2-4 equates to 50-69% stenosis, greater than 4 equates to greater than or equal to 70% stenosis. Normal ICA end-diastolic velocity less than 40. Blood pressure Not performed. IMPRESSION: Atherosclerosis without evidence of hemodynamically significant stenosis. Electronically signed by: Amadeo George M.D. 09/02/2016 7:44 PM Dictated Date/Time: 09/02/2016 7:41 PM
[2016-09-02] MEDS: ASPIRIN 81 MG ECTAB PO SCH (21:24)
[2016-09-02] MEDS: SIMVASTATIN 10 MG TAB PO SCH (21:24)
[2016-09-02] MEDS ORDERED: CLOPIDOGREL BISULFATE 75 MG TAB PO STA (22:00)
[2016-09-03] MEDS ORDERED: INSULIN ASPART 100 UNITS/ML 3 ML PEN SC SCH
[2016-09-03 00:36] VITALS: BP 129/69; PULSE 57; TEMP 36.4; O2SAT 96
[2016-09-03] MEDS: ACETAMINOPHEN 325 MG TAB PO PRN ×2 (02:03→08:00)
[2016-09-03 04:04] VITALS: BP 113/61; PULSE 57; TEMP 36.7; O2SAT 96
[2016-09-03 06:09] LABS: HEMATOCRIT 24.8 % (37-47); MEAN CELL VOLUME 87.9 fL (80-100); MEAN CORPUSCULAR HEMOGLOBIN 29.4 pg (25-34); MEAN CORPUSCULAR HGB CONC 33.5 g/dl (32-36); MEAN PLATELET VOLUME 10.3 fL (7.4-10.4); PLATELET COUNT 192 K/uL (130-400); RED BLOOD COUNT 2.82 M/uL (4.2-5.4); WHITE BLOOD COUNT 7.59 K/uL (4.8-10.8)
--- NOTE | 2016-09-03 06:58 | Clinical Documentation Query ---
WILEY Prado : CLINICAL DOCUMENTATION QUERIES QUERY 1 OF 2 Patient is a 66 year old female admitted with chest pain and left sided weakness. Initial head CT without acute intracranial findings. MRI the calendar day after admission read to include "Acute infarct in the right cerebellar peduncle, which is likely greater than 6 hours old given the presence of hyperintensity on T2-weighted imaging". As appropriate, consider documentation as suggested below as this impacts severity of illness, risk of mortality, DRG assignment, and EMR integrity. In your clinical opinion is this patient being managed for: ( ) Left cerebellar infarction, Present on Admission ( x ) Other explanation of clinical findings -R cerebellar infarction ( ) Unable to determine (Please Define) ( ) Need to Discuss ( ) Not Agree The medical record reflects the following clinical findings, treatment, and risk factors. Clinical Indicators: As above Treatment: Plavix and ASA. Neurologic consultation, risk factor modification. Risk Factors: Age, CKD, hyperlipidemia, obesity, physical inactivity, diabetes, hypertension QUERY 2 OF 2 Documentation includes CKD stage 4. BUN, creatinine, and estimated GFR of 91 mg/dl, 3.80 mg/dl, and 12 ml//min. Documentation includes CKD stage 4 with plans to start dialysis. Estimated GFR range consistent with that of CKD stage 5 or CKD stage 4 with acute renal failure. Please clarify as clinically appropriate. Thank you. In your clinical opinion is this patient being managed for: (x ) Acute kidney failure on CKD stage 4 ( ) CKD stage 5 ( ) Other explanation of clinical findings (Please Explain) ( ) Unable to determine (Please Define) ( ) Need to Discuss ( ) Not Agree The medical record reflects the following clinical findings, treatment, and risk factors. Clinical Indicators: As above Treatment: Serial chemistries, plan for hemodialysis in 1.5 months. Maturing fistula Risk Factors: Age, hypertension, diabetes, diastolic CHF Please clarify and document your clinical opinion in the progress notes and discharge summary. Terms such as "probable", "suspected", "likely", "questionable", "possible", or "still to be ruled out" are acceptable. IF IN AGREEMENT, YOU MUST DOCUMENT ABOVE DIAGNOSTIC STATEMENT IN DAILY PROGRESS NOTES AND DISCHARGE SUMMARY. This document is not part of the patient's record. Thank You, Eliel Pelayo, SHAYLEE [phone]
[2016-09-03 07:21] VITALS: BP 147/70; PULSE 57; TEMP 36.6; O2SAT 96
[2016-09-03 07:42] LABS: BUN/CREATININE RATIO 23.4 (10-20); CALCIUM 9.3 mg/dl (8.5-10.1); CHOLESTEROL/HDL RATIO 4.2; CREATININE 3.7 mg/dl (0.60-1.20); MAGNESIUM 2.1 mg/dl (1.8-2.4); PHOSPHORUS 5.1 mg/dl (2.5-4.9); POTASSIUM 3.9 mmol/L (3.5-5.1)
[2016-09-03] MEDS: CLOPIDOGREL BISULFATE 75 MG TAB PO SCH (08:00)
[2016-09-03] MEDS: INSULIN ASPART 100 UNITS/ML 3 ML PEN SC SCH ×4 (08:01→21:00)
[2016-09-03] MEDS: CALCIUM 600MG + VIT D 400 IU TAB PO SCH ×2 (08:02→20:54)
[2016-09-03] MEDS: MULTIVITAMIN TAB PO SCH (08:02)
[2016-09-03] MEDS: MAGNESIUM OXIDE 400 MG TAB PO SCH (08:02)
[2016-09-03] MEDS: FUROSEMIDE 40 MG TAB PO SCH ×2 (08:02→18:00)
[2016-09-03] MEDS: CHOLECALCIFEROL 1000 INTER.UNIT TAB PO SCH (08:02)
[2016-09-03] MEDS: PANTOprazole SOD 40 MG TAB PO SCH (08:03)
[2016-09-03] MEDS: FERROUS SULFATE 325 MG TAB PO SCH ×2 (08:03→18:00)
[2016-09-03] MEDS: CARVEDILOL 12.5 MG TAB PO SCH ×2 (08:04→20:52)
[2016-09-03] MEDS: AMLODIPINE BESYLATE 5 MG TAB PO SCH (08:05)
[2016-09-03] MEDS: HEPARIN SOD 5000 UNIT/0.5 ML CARP SQ SCH ×2 (08:09→21:00)
[2016-09-03] MEDS: INSULIN GLARGINE SOLOSTAR 100 UNITS/ML 3 ML PEN SC SCH ×2 (08:09→21:00)
[2016-09-03] MEDS ORDERED: PHARMACIST DISCHARGE MED REC CONSULT PRN (08:45)
--- NOTE | 2016-09-03 10:38 | Pharmacy Progress Note ---
Glycemic Control Progress Note Date of Service Sep 03, 2016. Scope Glycemic Pharmacist consulted for glycemic control to write orders per [facility] inpatient glycemic control protocol. Objective Accuchecks BSG (last 24hrs): Test 09/02/16 11:35 09/02/16 16:11 09/02/16 20:20 09/02/16 23:52 Bedside Glucose 190 mg/dl (70-90) 151 mg/dl (70-90) 99 mg/dl (70-90) 87 mg/dl (70-90) Test 09/03/16 05:39 09/03/16 07:36 Random Glucose 79 mg/dl (70-99) Bedside Glucose 101 mg/dl (70-90) HbA1c: Test 09/02/16 05:40 Hemoglobin A1c 6.3 % (4.5-5.6) H Recent Pertinent Medications The patient is currently receiving: * Basal insulin: Lantus 15 units every 12 hours * Correctional Insulin: Novolog Correction per scale ACHS Goal Range: Low 120 mg/dL - High 140 mg/dL Correction Factor: 15 mg/dL/unit * Prandial insulin: Per carb ratio of 1 unit per 5 grams CHO consumed Outpatient Anti-Diabetic Meds Basal Insulin * NPH 26 units qAM and 22 units qPM Bolus Insulin * Regular insulin ACHS (average 15 units per dose) Per discussion with patient's , she rarely has hypoglycemia at home. During last admission to [facility] she was changed from NPH to Lantus, however, family resumed NPH due to cost of insulin. Assessment & Plan ASSESSMENT: * 66 yr old female admitted with chest pain, r/o ACS. Patient is well known to the glycemic service. See note from 09/01 for background. * Recent improvement in A1c from 8.9 % in June 2016 to 6.3 % in August 2016 * Initial inpatient regimen was based of off anticipated need of ~ 100 units per day split 50% basal and 50% bolus with slight reduction due to patient being NPO and euglycemic on admission. * Changes needed to insulin regimen: * Fasting BSG = 101 mg/dL. This is slightly below goal for patient based on age and co-morbidities. Diet advancing but pt with with reduced PO intake, will decrease Lantus dose but keep a parameters for a slightly higher dose if rebound hyperglycemia occurs from reduced dosing. Per previous admissions, pt is admitted with "low" BSGs and basal insulin doses are decreased significantly but then this causes rebound hyperglycemia. * Post prandial BSG are in range. No changes needed to bolus insulin parameters PLAN FOR INPATIENT GLYCEMIC CONTROL: * Basal insulin: Decrease dosing * Lantus SQ BID - dosing based on BSG * BSG 140mg/dl or below --> 12 units * BSG 141mg/dl or above --> 15 units * Bolus insulin: No change * NovoLog per scale ACHS or Q6hrs while NPO * Goal Range: Low 120 mg/dL - High 140 mg/dL * Correction Factor: 15 mg/dL/unit * Nutritional / Prandial insulin per carb ratio of 1 unit per 6 grams CHO consumed DISCHARGE RECOMMENDATIONS: * Adequate outpatient glycemic control evidenced by A1c of 6.3 % (09/02/16) * Recommend continuing current home regimen on discharge * NPH 26 units SQ qAM, 22 units SQ qPM * Regular insulin SQ ACHS per sliding scale * Please note that the plan above was derived based on current level of insulin resistance and hospital stress. These recommendations are appropriate for inpatient admission only. Plan of care upon discharge will need to be reassessed to avoid potential outpatient hypo/hyperglycemia. Thank you.
[2016-09-03 11:33] VITALS: BP 137/57; PULSE 54; TEMP 36.8; O2SAT 97
--- NOTE | 2016-09-03 11:36 | CARDIOLOGY PROGRESS NOTE ---
DATE: 09/03/2016 DATE: 09/03/2016. The patient seen and examined. Chart, medications, telemetry reviewed. SUBJECTIVE: The patient denies any chest pains or discomfort continues to have weakness, left arm and leg. Notes no dizziness or lightheadedness. Notes no syncope or near syncope. Notes no tachypalpitations. Has been up to the bedside yesterday. Anticipates doing later on today. Physical therapy per patient has been ordered. OBJECTIVE: VITAL SIGNS: Heart rate is 57, blood pressure is 147/70. NECK: Thick. There is no distinct jugular venous distention. LUNGS: Clear. CARDIOVASCULAR EXAMINATION: Regular. There is no S3 gallop. ABDOMEN: Soft, nontender. EXTREMITIES: Without cyanosis or clubbing. There is no peripheral edema. She has a functioning fistula with audible bruit in the left forearm. LABORATORY DATA: White cell count 7.5, hemoglobin is 8.3. Sodium is 140, potassium is 3.9, chloride is 107, bicarbonate 25, BUN 87, creatinine is 3.7. Cholesterol is 114, LDL is 51, and HDL is 27. IMPRESSION: A 66-year-old female admitted with left-sided weakness and chest pressure. Findings by MRI notable for acute right cerebellar stroke. RECOMMENDATIONS: Per neurology noted. The patient is begun on increased antiplatelet therapy with aspirin and clopidogrel. Will intensify statin dosing though simvastatin very low dosing has lipids are very well managed. Would intensify to atorvastatin 40 mg per day with reduction from maximal dosing of 80 to 40 due to underlying medical issues, renal insufficiency and age. This may ultimately need to be reduced in the future though would continue high dose statin for at least 30 days. Will follow patient in the hospital.
--- NOTE | 2016-09-03 13:18 | Nephrology Consultation ---
Nephrology Consultation Date of Consultation: Sep 03, 2016. Attending Physician: Dr Valdez Requesting Physician: Dr Valdez Reason for Consultation: GARETH on CKD History of Present Illness 66 year old female admitted yesterday for acute R cerebellar stroke after presenting w/ numbness/weakness in L hand/tongue and atypical chest tightness. PMH includes CKD 4 nearing dialysis baseline creatinine mid 3s, DM on insulin, HTN, chronic diastolic HF, KUSHAL on CPAP. On presentation 09/01, her creatinine was 3.8; peaked at 4.0 yesterday; down to 3.7 today. K in 3's or 4's this admission. Pt c/o ongoing L sided weakness. No dyspnea; no change in voiding habits; no edema. no n/v but having trouble getting enough po b/c unable to feed herself. denies metallic taste to foods. her vision is stable. Past Medical/Surgical History Medical Problems: (1) Acute kidney injury Status: Acute (2) Acute renal failure Status: Acute (3) Altered mental status Status: Acute (4) Chronic renal failure Status: Acute (5) Dizziness Status: Acute (6) Fluid overload Status: Acute (7) Heart failure Status: Acute (8) Hypercalcemia Status: Acute (9) Hyperglycemia Status: Acute (10) Precordial chest pain Status: Acute (11) UTI (urinary tract infection) Status: Acute -as above -CKD 5 w/ 5 gm proteinuria under care of Dr. Escoto s/p AVF creation by Dr hCambers approx 08/18; baseline creatinine 3.3-3.5 06/2016 as outpt -anemia of chronic disease > on outpt epo -admission here 06/2016 for acute on chronic diastolic HF -migraines on triptan -DM w/ retinopathy -chronically diminished visual acuity -R shoulder replacement 1999 c/b diminished use of R arm/hand Family History Cancer FATHER (? gastric primary) Dementia MOTHER Diabetes mellitus MOTHER BROTHER BROTHER Kidney disease MOTHER Myocardial infarction BROTHER BROTHER Social History Smoking Status: Never Smoker Alcohol Use: none Drug Use: none Marital Status: Housing Status: lives with family Allergies Coded Allergies: Codeine (Verified Allergy, Intermediate, hives, 08/08/16) Pioglitazone (Unverified Allergy, Intermediate, Rash/Fluid retention, 08/08) RETAINS FLUID Morphine (Verified Allergy, Mild, 08/08/16) Medications Current Inpatient Medications Medications (Trade) Dose Ordered Sig/Aleks Route Start Time Stop Time Status Last Admin Dose Admin Miscellaneous (Iv Fluids Completed) 1 ea PRN PRN N/A 09/01/16 12:15 09/01/17 12:14 Heparin Sodium (Porcine) (Heparin Sq 5000 Unit/0.5ml) 5,000 unit Q12 SQ 09/01/16 21:00 10/01/16 20:59 09/03/16 08:09 5,000 UNIT Acetaminophen (Tylenol Tab) 650 mg Q4H PRN PO 09/01/16 12:15 10/01/16 12:14 09/03/16 08:00 650 MG Ondansetron HCl (Zofran Inj) 4 mg Q6H PRN IV 09/01/16 12:15 10/01/16 12:14 Nitroglycerin (Nitrostat Tab) 0.4 mg UD PRN SL 09/01/16 12:15 10/01/16 12:14 Amlodipine Besylate (Norvasc Tab) 2.5 mg DAILY PO 09/02/16 09:00 10/02/16 08:59 09/03/16 08:05 2.5 MG Aspirin (Ecotrin Tab) 81 mg QPM PO 09/02/16 21:00 10/02/16 20:59 09/02/16 21:24 81 MG Calcium/Vitamin D (Caltrate Plus Tab) 1 tab BID PO 09/01/16 21:00 10/01/16 20:59 09/03/16 08:02 1 TAB Carvedilol (Coreg Tab) 12.5 mg BID PO 09/01/16 21:00 10/01/16 20:59 09/02/16 21:24 12.5 MG Docusate Sodium (coLACE CAP) 100 mg BID PRN PO 09/01/16 12:30 10/01/16 12:29 Furosemide (Lasix Tab) 40 mg BID17 PO 09/01/16 21:00 10/01/16 20:59 09/03/16 08:02 40 MG Hydralazine HCl (Apresoline Tab) 50 mg BID PO 09/01/16 21:00 10/01/16 20:59 09/03/16 08:03 50 MG Magnesium Oxide (Mag-Ox Tab) 400 mg QAM PO 09/02/16 09:00 10/02/16 08:59 09/03/16 08:02 400 MG Meclizine HCl (Antivert Tab) 25 mg TID PRN PO 09/01/16 12:30 10/01/16 12:29 Multivitamins (Multivitamin Tab) 1 tab QAM PO 09/02/16 09:00 10/02/16 08:59 09/03/16 08:02 1 TAB Nystatin (Mycostatin Powder) 1 appln TID PRN EXT 09/01/16 12:30 10/01/16 12:29 09/02/16 20:07 1 APPLN Simvastatin (Zocor Tab) 10 mg QPM PO 09/01/16 21:00 10/01/16 20:59 09/02/16 21:24 10 MG Sumatriptan Succinate (Imitrex Tab) 25 mg UD PRN PO 09/01/16 12:30 10/01/16 12:29 Cholecalciferol (Vitamin D Tab) 5,000 inter.unit QAM PO 09/02/16 09:00 10/02/16 08:59 09/03/16 08:02 5,000 INTER.UNIT Ferrous Sulfate (Feosol Tab) 325 mg BIDM PO 09/01/16 17:00 10/01/16 17:59 09/03/16 08:03 325 MG Pantoprazole Sodium (Protonix Tab) 40 mg QAM PO 09/02/16 09:00 10/02/16 08:59 09/03/16 08:03 40 MG Glucose (Glucose 40% Gel) 15-30 GRAMS 15 GRAMS... UD PRN PO 09/01/16 12:45 10/01/16 12:44 Glucose (Glucose Chew Tab) 4-8 Tablets 4 Tabl... UD PRN PO 09/01/16 12:45 10/01/16 12:44 Dextrose (Dextrose 50% 50ML Syringe) 25-50ML OF 50% DW IV FOR... UD PRN IV 09/01/16 12:45 10/01/16 12:44 Glucagon (Glucagon Inj) 1 mg UD PRN SQ 09/01/16 12:45 10/01/16 12:44 Miscellaneous Information (Consult Glycemic Management Pharmacy) 1 ea UD PRN N/A 09/01/16 13:19 10/01/16 13:18 Miconazole Nitrate (Desenex Powder) 1 appln PRN PRN EXT 09/01/16 15:15 10/01/16 15:14 Insulin Glargine (Lantus Solostar Pen) see protocol text BID SC 09/01/16 21:00 10/01/16 20:59 09/03/16 08:09 15 UNITS Insulin Aspart (novoLOG ASPART) SLIDING SCALE If C... ACHS SC 09/02/16 11:00 10/02/16 10:59 09/02/16 17:22 10 UNITS Clopidogrel Bisulfate (plAVix TAB) 75 mg QAM PO 09/03/16 09:00 10/03/16 08:59 09/03/16 08:00 75 MG Miscellaneous Information (Pharmacist Discharge Med Rec Consult) 1 ea UD PRN N/A 09/03/16 08:45 10/03/16 08:44 Home Meds and Scripts Medications Dose Route/Sig Max Daily Dose Days Date Category Dose Instructions Novolin R (Insulin Human Regular) 100 Units/1 Ml Inj 15 Units SC ACHS 09/02/16 Reported PRN sliding scale Novolin N (Insulin Human NPH) 100 Units/Ml Susp 22 Units SC QDD 09/02/16 Reported Novolin N (Insulin Human NPH) 100 Units/Ml Susp 26 Units SC QDB 09/02/16 Reported Coreg (Carvedilol) 12.5 Mg Tab 1 Tab PO BID 90 09/01/16 Reported Procrit (Epoetin Oleg) 2,000 Units Inj 10,000 Units SQ UD 09/01/16 Reported Every 14 days. Norvasc (Amlodipine Besylate) 2.5 Mg Tab 2.5 Mg PO DAILY 09/01/16 Reported Multivitamin (Multivitamins) Tab 1 Tab PO QAM 08/08/16 Reported Apresoline (Hydralazine Hcl) 50 Mg Tab 50 Mg PO BID 30 06/27/16 Rx Lasix (Furosemide) 40 Mg Tab 40 Mg PO BID 30 06/26/16 Rx Tylenol (Acetaminophen) 325 Mg Tab 650 Mg PO Q6 PRN 06/09/16 Reported Docusate Sodium 100 Mg Cap 1 Cap PO BID PRN 7 06/09/16 Reported Imitrex (Sumatriptan Succinate) 25 Mg Tab 25 Mg PO PRN UD 06/09/16 Reported Protonix (Pantoprazole Sodium) 20 Mg Tab 20 Mg PO QAM 06/09/16 Reported Simvastatin 10 Mg Tab 10 Mg PO QPM 06/09/16 Reported Meclizine Hcl 25 Mg Tab 25 Mg PO TID PRN 06/09/16 Reported Ferrous Sulfate 325 Mg Tab 325 Mg PO BID 06/09/16 Reported Nystatin (Nystatin (Topical)) 100,000 Unit/Gm Pow 1 Appln TOP TID PRN 06/09/16 Reported Aspirin Ec (Aspirin) 81 Mg Tab 81 Mg PO QPM 05/10/15 Reported Os-George 500 Plus D (Calcium/Vitamin D) Tab 1 Tab PO BID 05/10/15 Reported Vitamin D3 (Cholecalciferol) 5,000 Unit Tab 1 Tab PO QAM 05/10/15 Reported Mag-Ox (Magnesium Oxide) 400 Mg Tab 400 Mg PO QAM 05/10/15 Reported Review of Systems Constitutional: + see HPI, + weakness, No fever Eyes: No worsening of vision ENT: No hearing loss Respiratory: No cough, No shortness of breath Cardiac: + see HPI, + chest pain, No orthopnea, No edema, No palpitations Abdomen: + problem reported (challenge getting po intake), No pain, No nausea, No vomiting, No diarrhea Musculoskeletal: + problem reported (c/o tingling pain L hand pins/needles) Female : + problem reported (no change to chronic voiding sx) Neuro: + see HPI, + weakness, + numbness/tingling, + balance problems Psych: No depression symptoms, No anxiety Heme: No abnormal bleeding/bruising Endo: + fatigue Skin: No rash Physical Exam Date Time Temp Pulse Resp B/P (MAP) Pulse Ox O2 Delivery O2 Flow Rate FiO2 09/03/16 08:00 Room Air 09/03/16 07:21 36.6 57 16 147/70 (95) 96 Room Air 09/03/16 04:04 36.7 57 18 113/61 (78) 96 Room Air 09/03/16 04:00 CPAP 09/03/16 00:36 36.4 57 20 129/69 (89) 96 Room Air 09/03/16 00:00 CPAP 09/02/16 21:19 61 176/58 (97) 09/02/16 20:43 36.6 61 18 179/57 (97) 98 Room Air 09/02/16 20:00 98 Room Air CPAP 09/02/16 16:00 98 Room Air CPAP 09/02/16 12:30 Room Air 09/02/16 11:06 36.5 57 18 144/56 (85) 98 Room Air General Appearance: WD/WN, no apparent distress, + obese (on RA nad) Eyes: EOMI ENT: hearing grossly normal Neck: supple Respiratory/Chest: lungs clear, normal breath sounds, + decreased breath sounds Cardiovascular: regular rate, rhythm, no edema Abdomen: normal bowel sounds, non tender, soft, + pertinent finding (no teague) Extremities: no pedal edema, + pertinent finding (AVF L A-C + t/b) Neurologic/Psych: alert, normal mood/affect, oriented x 3 Skin: no jaundice, warm/dry, no rash Diagnostics Last 24 Hours Test 09/02/16 11:35 09/02/16 16:11 09/02/16 20:20 09/02/16 23:52 Bedside Glucose 190 mg/dl 151 mg/dl 99 mg/dl 87 mg/dl Test 09/03/16 05:39 09/03/16 07:36 White Blood Count 7.59 K/uL Red Blood Count 2.82 M/uL Hemoglobin 8.3 g/dL Hematocrit 24.8 % Mean Corpuscular Volume 87.9 fL Mean Corpuscular Hemoglobin 29.4 pg Mean Corpuscular Hemoglobin Concent 33.5 g/dl RDW Standard Deviation 47.2 fL RDW Coefficient of Variation 14.5 % Platelet Count 192 K/uL Mean Platelet Volume 10.3 fL Sodium Level 140 mmol/L Potassium Level 3.9 mmol/L Chloride Level 107 mmol/L Carbon Dioxide Level 25 mmol/L Anion Gap 8.0 mmol/L Blood Urea Nitrogen 87 mg/dl Creatinine 3.70 mg/dl Est Creatinine Clear Calc Drug Dose 14.9 ml/min Estimated GFR () 13.9 Estimated GFR (Non- 12.0 BUN/Creatinine Ratio 23.4 Random Glucose 79 mg/dl Calcium Level 9.3 mg/dl Phosphorus Level 5.1 mg/dl Magnesium Level 2.1 mg/dl Triglycerides Level 180 mg/dl Cholesterol Level 114 mg/dl HDL Cholesterol 27 mg/dl LDL Cholesterol, Calculated 51 mg/dl VLDL Cholesterol, Calculated 36 mg/dl Cholesterol/HDL Ratio 4.2 Vitamin B12 Level 427 pg/mL 25-Hydroxy Vitamin D Total 38.1 ng/ml Folate > 24.00 ng/mL Bedside Glucose 101 mg/dl Diagnostic Radiology: brain mri non con > acute r cerebellar infarct likely > 6h old (09/02 study @1900 ); multiple chronic infarcts stable from 06/[address] no acute i-c process CXR no acute c-p process TTE 09/01/2016 EF 65%; aortic sclerosis; moderate [facility] Assessment & Plan 66 y/o F w/ chronic diastolic HF, 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 Found to have R cerebellar acute ischemic stroke. No evidence of myocardial ischemia or infarction. ESRD not on dialysis -no indication for acute dialysis but will follow closely -baseline creatinine mid 3's -s/p AVF creation 08/19/16 -pls cont strict I/O -daily bmp, fluid limit 1.5L, <2 gm daily Na diet and low K diet recommended Acute ischemic stroke -liberal BP targets as per neurology; from renal standpoint, goal sbp < 140-150 -on plavix; neuro following Anemia of chronic disease -on outpt procrit; monitor cbc daily Appreciate consultation; will follow with you.
--- NOTE | 2016-09-03 15:07 | Neurology Progress Notes ---
Neurology Progress Note Date of Service Sep 03, 2016. Subjective Source: patient Sepideh is a 66 year old female with PMH of diastolic CHF (EF: 60-64%), DM II, CKD IV, HTN, HLD and chronic anemia who presents with chest pain and left sided weakness x 2 days. she had chest tightness that felt like "an elephant sitting on my chest". It was intermittent, non-radiating and exacerbated with exertion but was relieved by rest. Also states that she started to feel weakness in her L side yesterday but was still able to ambulate by walker as usual. She states in the am she woke with L-sided weakness and required her 's help to sit up in bed. Was still able to ambulate by walker in house but then switched to wheelchair before presenting to ED. She states she was laying on the left side over night but that is normal for her. She has been up to the bathroom with assistance. still having some gripping issues with her hand. She states her knee is giving out on her but this has been an ongoing since her knee replacement. understands she had a stroke and plavix has been added to her medication list. denies slurred speech, swallowing issues, current CP, SOB, abdominal pain, falls, head injury, vision change other than her chronic issues, N, V. Objective Date Time Temp Pulse Resp B/P (MAP) Pulse Ox O2 Delivery O2 Flow Rate FiO2 09/03/16 12:00 Room Air 09/03/16 11:33 36.8 54 16 137/57 (83) 97 Room Air 09/03/16 08:00 Room Air 09/03/16 07:21 36.6 57 16 147/70 (95) 96 Room Air 09/03/16 04:04 36.7 57 18 113/61 (78) 96 Room Air 09/03/16 04:00 CPAP 09/03/16 00:36 36.4 57 20 129/69 (89) 96 Room Air 09/03/16 00:00 CPAP 09/02/16 21:19 61 176/58 (97) 09/02/16 20:43 36.6 61 18 179/57 (97) 98 Room Air 09/02/16 20:00 98 Room Air CPAP 09/02/16 16:00 98 Room Air CPAP Last 24 Hours Test 09/02/16 16:11 09/02/16 20:20 09/02/16 23:52 09/03/16 05:39 Bedside Glucose 151 mg/dl 99 mg/dl 87 mg/dl White Blood Count 7.59 K/uL Red Blood Count 2.82 M/uL Hemoglobin 8.3 g/dL Hematocrit 24.8 % Mean Corpuscular Volume 87.9 fL Mean Corpuscular Hemoglobin 29.4 pg Mean Corpuscular Hemoglobin Concent 33.5 g/dl RDW Standard Deviation 47.2 fL RDW Coefficient of Variation 14.5 % Platelet Count 192 K/uL Mean Platelet Volume 10.3 fL Sodium Level 140 mmol/L Potassium Level 3.9 mmol/L Chloride Level 107 mmol/L Carbon Dioxide Level 25 mmol/L Anion Gap 8.0 mmol/L Blood Urea Nitrogen 87 mg/dl Creatinine 3.70 mg/dl Est Creatinine Clear Calc Drug Dose 14.9 ml/min Estimated GFR () 13.9 Estimated GFR (Non- 12.0 BUN/Creatinine Ratio 23.4 Random Glucose 79 mg/dl Calcium Level 9.3 mg/dl Phosphorus Level 5.1 mg/dl Magnesium Level 2.1 mg/dl Triglycerides Level 180 mg/dl Cholesterol Level 114 mg/dl HDL Cholesterol 27 mg/dl LDL Cholesterol, Calculated 51 mg/dl VLDL Cholesterol, Calculated 36 mg/dl Cholesterol/HDL Ratio 4.2 Vitamin B12 Level 427 pg/mL 25-Hydroxy Vitamin D Total 38.1 ng/ml Folate > 24.00 ng/mL Test 09/03/16 07:36 09/03/16 11:33 Bedside Glucose 101 mg/dl 114 mg/dl Imaging: MRI without contrast-. Acute infarct in the right cerebellar peduncle, which is likely greater than 6 hours old given the presence of hyperintensity on T2- weighted imaging. Multifocal chronic infarcts unchanged from prior exam in June 28, 2016. carotid doppler- Atherosclerosis without evidence of hemodynamically significant stenosis. Exam: Physical Exam: Constitutional: appearance nourished, healthy and obese Ears, Nose, Mouth and Throat: mucous membranes moist, no injection and skin normal, eyes normal Cardiovascular: normal S-1 and S-2 and regular rate and rhythm Respiratory: clear to auscultation (CTA) and no rales, rhonchi or wheeze Musculoskeletal: non pitting peripheral edema Skin: no stigmata of neurocutaneous disease noted and normal and intact Eyes: extraocular muscles intact (EOMI) and pupils equal, round and reactive to light (PERRL) NEUROLOGIC EXAMINATION: Mental status: Alert and interactive Oriented to full date and location Oriented to person Speech fluent with no evidence of aphasia Cranial Nerves smile eye brow raise symmetric, tongue midline Coordination: finger to nose with out bi pass Gait/Stance: Posture normal. sitting in bed side chair Strength: bicep triceps hand ship fitter 5/5 right biceps triceps hand ship fitter intrinsics 4/5, hip flex plantar flex ext 5/5 bilaterally Current Inpatient Medications Medications (Trade) Dose Ordered Sig/Aleks Route Start Time Stop Time Status Last Admin Dose Admin Miscellaneous (Iv Fluids Completed) 1 ea PRN PRN N/A 09/01/16 12:15 09/01/17 12:14 Heparin Sodium (Porcine) (Heparin Sq 5000 Unit/0.5ml) 5,000 unit Q12 SQ 09/01/16 21:00 10/01/16 20:59 09/03/16 08:09 5,000 UNIT Acetaminophen (Tylenol Tab) 650 mg Q4H PRN PO 09/01/16 12:15 10/01/16 12:14 09/03/16 08:00 650 MG Ondansetron HCl (Zofran Inj) 4 mg Q6H PRN IV 09/01/16 12:15 10/01/16 12:14 Nitroglycerin (Nitrostat Tab) 0.4 mg UD PRN SL 09/01/16 12:15 10/01/16 12:14 Amlodipine Besylate (Norvasc Tab) 2.5 mg DAILY PO 09/02/16 09:00 10/02/16 08:59 09/03/16 08:05 2.5 MG Aspirin (Ecotrin Tab) 81 mg QPM PO 09/02/16 21:00 10/02/16 20:59 09/02/16 21:24 81 MG Calcium/Vitamin D (Caltrate Plus Tab) 1 tab BID PO 09/01/16 21:00 10/01/16 20:59 09/03/16 08:02 1 TAB Carvedilol (Coreg Tab) 12.5 mg BID PO 09/01/16 21:00 10/01/16 20:59 09/02/16 21:24 12.5 MG Docusate Sodium (coLACE CAP) 100 mg BID PRN PO 09/01/16 12:30 10/01/16 12:29 Furosemide (Lasix Tab) 40 mg BID17 PO 09/01/16 21:00 10/01/16 20:59 09/03/16 08:02 40 MG Hydralazine HCl (Apresoline Tab) 50 mg BID PO 09/01/16 21:00 10/01/16 20:59 09/03/16 08:03 50 MG Magnesium Oxide (Mag-Ox Tab) 400 mg QAM PO 09/02/16 09:00 10/02/16 08:59 09/03/16 08:02 400 MG Meclizine HCl (Antivert Tab) 25 mg TID PRN PO 09/01/16 12:30 10/01/16 12:29 Multivitamins (Multivitamin Tab) 1 tab QAM PO 09/02/16 09:00 10/02/16 08:59 09/03/16 08:02 1 TAB Nystatin (Mycostatin Powder) 1 appln TID PRN EXT 09/01/16 12:30 10/01/16 12:29 09/02/16 20:07 1 APPLN Sumatriptan Succinate (Imitrex Tab) 25 mg UD PRN PO 09/01/16 12:30 10/01/16 12:29 Cholecalciferol (Vitamin D Tab) 5,000 inter.unit QAM PO 09/02/16 09:00 10/02/16 08:59 09/03/16 08:02 5,000 INTER.UNIT Ferrous Sulfate (Feosol Tab) 325 mg BIDM PO 09/01/16 17:00 10/01/16 17:59 09/03/16 08:03 325 MG Pantoprazole Sodium (Protonix Tab) 40 mg QAM PO 09/02/16 09:00 10/02/16 08:59 09/03/16 08:03 40 MG Glucose (Glucose 40% Gel) 15-30 GRAMS 15 GRAMS... UD PRN PO 09/01/16 12:45 10/01/16 12:44 Glucose (Glucose Chew Tab) 4-8 Tablets 4 Tabl... UD PRN PO 09/01/16 12:45 10/01/16 12:44 Dextrose (Dextrose 50% 50ML Syringe) 25-50ML OF 50% DW IV FOR... UD PRN IV 09/01/16 12:45 10/01/16 12:44 Glucagon (Glucagon Inj) 1 mg UD PRN SQ 09/01/16 12:45 10/01/16 12:44 Miscellaneous Information (Consult Glycemic Management Pharmacy) 1 ea UD PRN N/A 09/01/16 13:19 10/01/16 13:18 Miconazole Nitrate (Desenex Powder) 1 appln PRN PRN EXT 09/01/16 15:15 10/01/16 15:14 Insulin Glargine (Lantus Solostar Pen) see protocol text BID SC 09/01/16 21:00 10/01/16 20:59 09/03/16 08:09 15 UNITS Insulin Aspart (novoLOG ASPART) SLIDING SCALE If C... ACHS SC 09/02/16 11:00 10/02/16 10:59 09/02/16 17:22 10 UNITS Clopidogrel Bisulfate (plAVix TAB) 75 mg QAM PO 09/03/16 09:00 10/03/16 08:59 09/03/16 08:00 75 MG Miscellaneous Information (Pharmacist Discharge Med Rec Consult) 1 ea UD PRN N/A 09/03/16 08:45 10/03/16 08:44 Atorvastatin Calcium (Lipitor Tab) 40 mg PM PO 09/03/16 21:00 10/03/16 20:59 Impression 66 year old with left sided weakness, and hand numbness- right cerebellar peduncle Plan 1. MRI without contrast due to renal function- new stroke right cerebellar peduncle 2. carotid doppler- for any vascular issues from new event- no new occlusion or stenosis 3. already on aspirin 81 mg, plavix 75 mg x 3 months duel therapy then stop aspirin and plavix 75 mg for life 4. echo -cardiology consulted for medical management 5. optimize DL, DM, HTN. permissive for now but then controlled per renal criteria, DL <70 6. PT/OT speech for discharge needs 7. 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
[2016-09-03 15:29] VITALS: BP 130/75; PULSE 62; TEMP 36.5; O2SAT 100
[2016-09-03 20:10] VITALS: BP 133/79; PULSE 63; TEMP 36.4; O2SAT 99
[2016-09-03] MEDS: ASPIRIN 81 MG ECTAB PO SCH (20:52)
[2016-09-03] MEDS: ATORVASTATIN 40 MG TAB PO SCH (20:53)
--- NOTE | 2016-09-03 21:55 | Progress Note ---
Medicine Progress Note Date & Time of Visit: Sep 03, 2016 at 14:00. Subjective This is a 66yo F with PMH of diastolic CHF, DM II, CKD IV, HTN, HLD and chronic anemia who presents with chest pain and left sided weakness x 2 days. Found to have R cerebellar stroke. -numbness improved in her L hand but still little function and some weakness is present -she states there is no problems with swallowing. -ambulating some to the bathroom with assist and almost fell-still wobbly on her feet -feels weakness may be somewhat better today -family present at bedside. Objective Last 8 Hrs Date Time Temp Pulse Resp B/P (MAP) Pulse Ox O2 Delivery O2 Flow Rate FiO2 09/03/16 16:00 Room Air 09/03/16 15:29 36.5 62 16 130/75 (93) 100 Room Air 09/03/16 12:00 Room Air 09/03/16 11:33 36.8 54 16 137/57 (83) 97 Room Air Physical Exam: GEN: obese, in no acute distress, alert and appropriate, sitting in bedside chair HEENT: NC/AT, PERRL, normal sclerae, MMM CARDIO: reg rate, S1/2 heard without m/g/r, no edema LUNGS: CTA bilaterally, no crackles, rales or wheezes, good diaphragmatic excursion ABD: soft, non-tender, non-distended but protuberant, no rebound or guarding +BS EXTREMITY: RP and DP palpable 2+ bilat, no LE swelling or edema, extremities are warm and well-perfused NEURO: CN 2-12 intact, sensation intact throughout, Gait was not assessed as she was a fall risk. MUSC: 5/5 strength on the right with some guarding of her RUE/R shoulder. LUE and LLE have 4/5 strength throughout. Finger spread is weak in the L hand compared to the right. [employer]ender strength intact bilaterally and is equal. SKIN: warm and dry Laboratory Results: 09/03/16 05:39 09/03/16 05:39 Test 09/01/16 09:59 09/01/16 10:10 09/01/16 10:17 09/01/16 21:58 Total Bilirubin 0.2 mg/dl (0.2-1) Direct Bilirubin < 0.1 mg/dl (0-0.2) Aspartate Amino Transf (AST/SGOT) 19 U/L (15-37) Alanine Aminotransferase (ALT/SGPT) 25 U/L (12-78) Alkaline Phosphatase 70 U/L (45-117) Total Creatine Kinase 82 U/L (26-192) Pro-B-Type Natriuretic Peptide 1340 pg/ml (0-900) Total Protein 6.6 gm/dl (6.4-8.2) Albumin 2.9 gm/dl (3.4-5.0) Lipase 142 U/L (73-393) Bedside Hemoglobin 8.2 g/dl (12.0-16.0) Bedside Hematocrit 24 % (37-47) Bedside Sodium 140 mEq/L (135-144) Bedside Potassium 4.7 mEq/L (3.3-5.0) Bedside Chloride 108 mEq/L (101-112) Bedside Total CO2 21 mEq/l (24-31) Bedside Blood Urea Nitrogen 95 mg/dl (7-18) Bedside Creatinine 4.0 mg/dl (0.6-1.3) Bedside Glucose (other) 127 mg/dl (70-99) Bedside Ionized Calcium (Lucinda) 1.08 mmol/l (1.12-1.32) Immature Granulocyte % (Auto) 0.3 % White Blood Count 8.99 K/uL (4.8-10.8) Red Blood Count 3.08 M/uL (4.2-5.4) Hemoglobin 8.8 g/dL (12.0-16.0) Hematocrit 27.6 % (37-47) Mean Corpuscular Volume 89.6 fL (80-100) Mean Corpuscular Hemoglobin 28.6 pg (25-34) Mean Corpuscular Hemoglobin Concent 31.9 g/dl (32-36) Platelet Count 211 K/uL (130-400) Mean Platelet Volume 10.9 fL (7.4-10.4) Neutrophils (%) (Auto) 73.3 % Lymphocytes (%) (Auto) 16.8 % Monocytes (%) (Auto) 5.5 % Eosinophils (%) (Auto) 3.8 % Basophils (%) (Auto) 0.3 % Neutrophils # (Auto) 6.59 K/uL (1.4-6.5) Lymphocytes # (Auto) 1.51 K/uL (1.2-3.4) Monocytes # (Auto) 0.49 K/uL (0.11-0.59) Eosinophils # (Auto) 0.34 K/uL (0-0.5) Basophils # (Auto) 0.03 K/uL (0-0.2) Immature Granulocyte # (Auto) 0.03 K/uL (0.00-0.02) Red Blood Cell Morphology Unremarkable Creatine Kinase MB 2.2 ng/ml (0.5-3.6) Creatine Kinase MB Ratio (0-3.0) Troponin I < 0.015 ng/ml (0-0.045) Test 09/02/16 05:40 09/03/16 05:39 09/03/16 20:43 Estimated Average Glucose 134 mg/dl Hemoglobin A1c 6.3 % (4.5-5.6) Red Blood Count 2.82 M/uL (4.2-5.4) Mean Corpuscular Volume 87.9 fL (80-100) Mean Corpuscular Hemoglobin 29.4 pg (25-34) Mean Corpuscular Hemoglobin Concent 33.5 g/dl (32-36) RDW Standard Deviation 47.2 fL (36.4-46.3) RDW Coefficient of Variation 14.5 % (11.5-14.5) Mean Platelet Volume 10.3 fL (7.4-10.4) Anion Gap 8.0 mmol/L (3-11) Est Creatinine Clear Calc Drug Dose 14.9 ml/min Estimated GFR () 13.9 Estimated GFR (Non- 12.0 BUN/Creatinine Ratio 23.4 (10-20) Calcium Level 9.3 mg/dl (8.5-10.1) Phosphorus Level 5.1 mg/dl (2.5-4.9) Magnesium Level 2.1 mg/dl (1.8-2.4) Triglycerides Level 180 mg/dl (0-150) Cholesterol Level 114 mg/dl (0-200) HDL Cholesterol 27 mg/dl LDL Cholesterol, Calculated 51 mg/dl VLDL Cholesterol, Calculated 36 mg/dl Cholesterol/HDL Ratio 4.2 Vitamin B12 Level 427 pg/mL (211-911) 25-Hydroxy Vitamin D Total 38.1 ng/ml (30-100) Folate > 24.00 ng/mL (>5.38) Bedside Glucose 135 mg/dl (70-90) Last 24 Hours Test 09/02/16 20:20 09/02/16 23:52 09/03/16 05:39 09/03/16 07:36 Bedside Glucose 99 mg/dl 87 mg/dl 101 mg/dl White Blood Count 7.59 K/uL Red Blood Count 2.82 M/uL Hemoglobin 8.3 g/dL Hematocrit 24.8 % Mean Corpuscular Volume 87.9 fL Mean Corpuscular Hemoglobin 29.4 pg Mean Corpuscular Hemoglobin Concent 33.5 g/dl RDW Standard Deviation 47.2 fL RDW Coefficient of Variation 14.5 % Platelet Count 192 K/uL Mean Platelet Volume 10.3 fL Sodium Level 140 mmol/L Potassium Level 3.9 mmol/L Chloride Level 107 mmol/L Carbon Dioxide Level 25 mmol/L Anion Gap 8.0 mmol/L Blood Urea Nitrogen 87 mg/dl Creatinine 3.70 mg/dl Est Creatinine Clear Calc Drug Dose 14.9 ml/min Estimated GFR () 13.9 Estimated GFR (Non- 12.0 BUN/Creatinine Ratio 23.4 Random Glucose 79 mg/dl Calcium Level 9.3 mg/dl Phosphorus Level 5.1 mg/dl Magnesium Level 2.1 mg/dl Triglycerides Level 180 mg/dl Cholesterol Level 114 mg/dl HDL Cholesterol 27 mg/dl LDL Cholesterol, Calculated 51 mg/dl VLDL Cholesterol, Calculated 36 mg/dl Cholesterol/HDL Ratio 4.2 Vitamin B12 Level 427 pg/mL 25-Hydroxy Vitamin D Total 38.1 ng/ml Folate > 24.00 ng/mL Test 09/03/16 11:33 09/03/16 16:44 Bedside Glucose 114 mg/dl 189 mg/dl Assessment & Plan This is a 66yo F with PMH of diastolic CHF, DM II, CKD IV, HTN, HLD and chronic anemia who presents with chest pain and left sided weakness x 2 days. 1. R Cerebellar infarction (CVA): based on clinical findings and MRI last night. Plavix was added to ASA and will cont for 3 months, and then Plavix indef per Neuro. PT/OT to suggest appropriate dispo-awaiting eval.No issues with swallowing or dysphagia. Statin was changed to Lipitor for plaque stabilization. 2. Atypical chest tightness--monitored on telemetry with no events overnight. Serial cardiac enzymes were checked and negative. Cardiology evaluated her and with no evidence of ischemia on EKG or echo. Tightness has resolved at this time. Multiple risk factors for cardiovascular disease and she will eventually require a stress test. However, with recent stroke and poor kidney function this is not ideal and heart catheterization, if needed, may bring on the need for dialysis. Will delay 1-2 months and then have patient follow-up with Cardiology as outpatient to discuss. 3. Diastolic CHF: chronic, no acute exacerbation at this time. Cont medical management and good BP control efforts. 4. Chronic anemia: -Hgb 8.3 currently, which is slightly above baseline. -recent iron levels reviewed as outpatient. Cont Fe supplementation -Receives Procrit injections every 2 weeks-received on admission -Monitor H&H. No indication for transfusion at this time. 5. CKD IV: -Dialysis fistula placed in L forearm by Dr. Chambers 2 weeks ago. -Plan to start dialysis if needed moving forward. She has a creatinine of 4 with a baseline of 3. -appreciate Nephro recs. 6. DM II: A1C 6.3 reflecting excellent control; SSI while in-patient. Placed glycemic control consult with pharm. 7. HTN: controlled, cont home meds for management 8. KUSHAL-nightly CPAP DVT Ppx: Heparin Code status: FULL PCP: Dr. Golden Dispo:pending PT/OT eval and recs. Samantha Valdez DO [facility] Hospitalist Consultants: Cardiology-Dr. Wang Neurology-Dr. Izaguirre Nephrology-Dr. Kessler Current Inpatient Medications: Current Inpatient Medications Medications (Trade) Dose Ordered Sig/Aleks Route Start Time Stop Time Status Last Admin Dose Admin Miscellaneous (Iv Fluids Completed) 1 ea PRN PRN N/A 09/01/16 12:15 09/01/17 12:14 Heparin Sodium (Porcine) (Heparin Sq 5000 Unit/0.5ml) 5,000 unit Q12 SQ 09/01/16 21:00 10/01/16 20:59 09/03/16 08:09 5,000 UNIT Acetaminophen (Tylenol Tab) 650 mg Q4H PRN PO 09/01/16 12:15 10/01/16 12:14 09/03/16 08:00 650 MG Ondansetron HCl (Zofran Inj) 4 mg Q6H PRN IV 09/01/16 12:15 10/01/16 12:14 Nitroglycerin (Nitrostat Tab) 0.4 mg UD PRN SL 09/01/16 12:15 10/01/16 12:14 Amlodipine Besylate (Norvasc Tab) 2.5 mg DAILY PO 09/02/16 09:00 10/02/16 08:59 09/03/16 08:05 2.5 MG Aspirin (Ecotrin Tab) 81 mg QPM PO 09/02/16 21:00 10/02/16 20:59 09/02/16 21:24 81 MG Calcium/Vitamin D (Caltrate Plus Tab) 1 tab BID PO 09/01/16 21:00 10/01/16 20:59 09/03/16 08:02 1 TAB Carvedilol (Coreg Tab) 12.5 mg BID PO 09/01/16 21:00 10/01/16 20:59 09/02/16 21:24 12.5 MG Docusate Sodium (coLACE CAP) 100 mg BID PRN PO 09/01/16 12:30 10/01/16 12:29 Furosemide (Lasix Tab) 40 mg BID17 PO 09/01/16 21:00 10/01/16 20:59 09/03/16 08:02 40 MG Hydralazine HCl (Apresoline Tab) 50 mg BID PO 09/01/16 21:00 10/01/16 20:59 09/03/16 08:03 50 MG Magnesium Oxide (Mag-Ox Tab) 400 mg QAM PO 09/02/16 09:00 10/02/16 08:59 09/03/16 08:02 400 MG Meclizine HCl (Antivert Tab) 25 mg TID PRN PO 09/01/16 12:30 10/01/16 12:29 Multivitamins (Multivitamin Tab) 1 tab QAM PO 09/02/16 09:00 10/02/16 08:59 09/03/16 08:02 1 TAB Nystatin (Mycostatin Powder) 1 appln TID PRN EXT 09/01/16 12:30 10/01/16 12:29 09/02/16 20:07 1 APPLN Sumatriptan Succinate (Imitrex Tab) 25 mg UD PRN PO 09/01/16 12:30 10/01/16 12:29 Cholecalciferol (Vitamin D Tab) 5,000 inter.unit QAM PO 09/02/16 09:00 10/02/16 08:59 09/03/16 08:02 5,000 INTER.UNIT Ferrous Sulfate (Feosol Tab) 325 mg BIDM PO 09/01/16 17:00 10/01/16 17:59 09/03/16 08:03 325 MG Pantoprazole Sodium (Protonix Tab) 40 mg QAM PO 09/02/16 09:00 10/02/16 08:59 09/03/16 08:03 40 MG Glucose (Glucose 40% Gel) 15-30 GRAMS 15 GRAMS... UD PRN PO 09/01/16 12:45 10/01/16 12:44 Glucose (Glucose Chew Tab) 4-8 Tablets 4 Tabl... UD PRN PO 09/01/16 12:45 10/01/16 12:44 Dextrose (Dextrose 50% 50ML Syringe) 25-50ML OF 50% DW IV FOR... UD PRN IV 09/01/16 12:45 10/01/16 12:44 Glucagon (Glucagon Inj) 1 mg UD PRN SQ 09/01/16 12:45 10/01/16 12:44 Miscellaneous Information (Consult Glycemic Management Pharmacy) 1 ea UD PRN N/A 09/01/16 13:19 10/01/16 13:18 Miconazole Nitrate (Desenex Powder) 1 appln PRN PRN EXT 09/01/16 15:15 10/01/16 15:14 Insulin Glargine (Lantus Solostar Pen) see protocol text BID SC 09/01/16 21:00 10/01/16 20:59 09/03/16 08:09 15 UNITS Insulin Aspart (novoLOG ASPART) SLIDING SCALE If C... ACHS SC 09/02/16 11:00 10/02/16 10:59 09/02/16 17:22 10 UNITS Clopidogrel Bisulfate (plAVix TAB) 75 mg QAM PO 09/03/16 09:00 10/03/16 08:59 09/03/16 08:00 75 MG Miscellaneous Information (Pharmacist Discharge Med Rec Consult) 1 ea UD PRN N/A 09/03/16 08:45 10/03/16 08:44 Atorvastatin Calcium (Lipitor Tab) 40 mg PM PO 09/03/16 21:00 10/03/16 20:59
[2016-09-04] VITALS (8 sets, daily range): BP systolic 136–182; BP diastolic 53–69; PULSE 57–64; TEMP 36.5–36.9; O2SAT 90–99
[2016-09-04 06:17] LABS: HEMATOCRIT 26.9 % (37-47); MEAN CELL VOLUME 88.2 fL (80-100); MEAN CORPUSCULAR HEMOGLOBIN 28.5 pg (25-34); MEAN CORPUSCULAR HGB CONC 32.3 g/dl (32-36); MEAN PLATELET VOLUME 10.1 fL (7.4-10.4); PLATELET COUNT 207 K/uL (130-400); RED BLOOD COUNT 3.05 M/uL (4.2-5.4); WHITE BLOOD COUNT 7.82 K/uL (4.8-10.8)
[2016-09-04 06:43] LABS: BUN/CREATININE RATIO 20.4 (10-20); CALCIUM 8.9 mg/dl (8.5-10.1); CREATININE 4.1 mg/dl (0.60-1.20); POTASSIUM 4.2 mmol/L (3.5-5.1)
[2016-09-04] MEDS: CALCIUM 600MG + VIT D 400 IU TAB PO SCH ×2 (07:42→22:06)
[2016-09-04] MEDS: MAGNESIUM OXIDE 400 MG TAB PO SCH (07:42)
[2016-09-04] MEDS: MULTIVITAMIN TAB PO SCH (07:42)
[2016-09-04] MEDS: CARVEDILOL 12.5 MG TAB PO SCH ×2 (07:42→22:07)
[2016-09-04] MEDS: FUROSEMIDE 40 MG TAB PO SCH ×2 (07:42→18:33)
[2016-09-04] MEDS: FERROUS SULFATE 325 MG TAB PO SCH ×2 (07:42→18:34)
[2016-09-04] MEDS: CHOLECALCIFEROL 1000 INTER.UNIT TAB PO SCH (07:43)
[2016-09-04] MEDS: PANTOprazole SOD 40 MG TAB PO SCH (07:43)
[2016-09-04] MEDS: CLOPIDOGREL BISULFATE 75 MG TAB PO SCH (07:43)
[2016-09-04] MEDS: AMLODIPINE BESYLATE 5 MG TAB PO SCH (07:43)
[2016-09-04] MEDS: HEPARIN SOD 5000 UNIT/0.5 ML CARP SQ SCH ×2 (07:49→22:01)
[2016-09-04] MEDS: INSULIN ASPART 100 UNITS/ML 3 ML PEN SC SCH ×4 (07:59→21:00)
[2016-09-04] MEDS ORDERED: INSULIN GLARGINE SOLOSTAR 100 UNITS/ML 3 ML PEN SC SCH ×3 (09:00→21:00)
--- NOTE | 2016-09-04 10:19 | Nephrology Progress Note ---
Nephrology Progress Note Date of Service: Sep 04, 2016. Subjective sitting up in chair; unable to feed herself reliably; otherwise no complaints. no pain; still w/ focal numbness/L weakness Objective Date Time Temp Pulse Resp B/P (MAP) Pulse Ox O2 Delivery O2 Flow Rate FiO2 09/04/16 07:37 36.8 64 18 182/66 (104) 96 Room Air 09/04/16 04:00 Room Air 09/04/16 03:38 36.9 64 18 150/53 (85) 90 Room Air 09/04/16 00:02 36.9 64 20 136/69 (91) 95 Room Air 09/04/16 00:00 Room Air 09/03/16 20:10 36.4 63 16 133/79 (97) 99 Room Air 09/03/16 20:00 Room Air 09/03/16 16:00 Room Air 09/03/16 15:29 36.5 62 16 130/75 (93) 100 Room Air 09/03/16 12:00 Room Air 09/03/16 11:33 36.8 54 16 137/57 (83) 97 Room Air Physical Exam: General Appearance: WD/WN, no apparent distress, + obese (on RA nad), up in chair Eyes: EOMI ENT: hearing grossly normal Neck: supple Respiratory/Chest: lungs clear, normal breath sounds, + decreased breath sounds Cardiovascular: regular rate, rhythm, no edema Abdomen: normal bowel sounds, non tender, soft, + pertinent finding (no teague) Extremities: no pedal edema, + pertinent finding (AVF L A-C + t/b) Neurologic/Psych: alert, normal mood/affect, oriented x 3 Skin: no jaundice, warm/dry, no rash Current Inpatient Medications Medications (Trade) Dose Ordered Sig/Aleks Route Start Time Stop Time Status Last Admin Dose Admin Miscellaneous (Iv Fluids Completed) 1 ea PRN PRN N/A 09/01/16 12:15 09/01/17 12:14 Heparin Sodium (Porcine) (Heparin Sq 5000 Unit/0.5ml) 5,000 unit Q12 SQ 09/01/16 21:00 10/01/16 20:59 09/04/16 07:49 5,000 UNIT Acetaminophen (Tylenol Tab) 650 mg Q4H PRN PO 09/01/16 12:15 10/01/16 12:14 09/03/16 08:00 650 MG Ondansetron HCl (Zofran Inj) 4 mg Q6H PRN IV 09/01/16 12:15 10/01/16 12:14 Nitroglycerin (Nitrostat Tab) 0.4 mg UD PRN SL 09/01/16 12:15 10/01/16 12:14 Amlodipine Besylate (Norvasc Tab) 2.5 mg DAILY PO 09/02/16 09:00 10/02/16 08:59 09/04/16 07:43 2.5 MG Aspirin (Ecotrin Tab) 81 mg QPM PO 09/02/16 21:00 10/02/16 20:59 09/03/16 20:52 81 MG Calcium/Vitamin D (Caltrate Plus Tab) 1 tab BID PO 09/01/16 21:00 10/01/16 20:59 09/04/16 07:42 1 TAB Carvedilol (Coreg Tab) 12.5 mg BID PO 09/01/16 21:00 10/01/16 20:59 09/04/16 07:42 12.5 MG Docusate Sodium (coLACE CAP) 100 mg BID PRN PO 09/01/16 12:30 10/01/16 12:29 Furosemide (Lasix Tab) 40 mg BID17 PO 09/01/16 21:00 10/01/16 20:59 09/04/16 07:42 40 MG Magnesium Oxide (Mag-Ox Tab) 400 mg QAM PO 09/02/16 09:00 10/02/16 08:59 09/04/16 07:42 400 MG Meclizine HCl (Antivert Tab) 25 mg TID PRN PO 09/01/16 12:30 10/01/16 12:29 Multivitamins (Multivitamin Tab) 1 tab QAM PO 09/02/16 09:00 10/02/16 08:59 09/04/16 07:42 1 TAB Nystatin (Mycostatin Powder) 1 appln TID PRN EXT 09/01/16 12:30 10/01/16 12:29 09/02/16 20:07 1 APPLN Sumatriptan Succinate (Imitrex Tab) 25 mg UD PRN PO 09/01/16 12:30 10/01/16 12:29 Cholecalciferol (Vitamin D Tab) 5,000 inter.unit QAM PO 09/02/16 09:00 10/02/16 08:59 09/04/16 07:43 5,000 INTER.UNIT Ferrous Sulfate (Feosol Tab) 325 mg BIDM PO 09/01/16 17:00 10/01/16 17:59 09/04/16 07:42 325 MG Pantoprazole Sodium (Protonix Tab) 40 mg QAM PO 09/02/16 09:00 10/02/16 08:59 09/04/16 07:43 40 MG Glucose (Glucose 40% Gel) 15-30 GRAMS 15 GRAMS... UD PRN PO 09/01/16 12:45 10/01/16 12:44 Glucose (Glucose Chew Tab) 4-8 Tablets 4 Tabl... UD PRN PO 09/01/16 12:45 10/01/16 12:44 Dextrose (Dextrose 50% 50ML Syringe) 25-50ML OF 50% DW IV FOR... UD PRN IV 09/01/16 12:45 10/01/16 12:44 Glucagon (Glucagon Inj) 1 mg UD PRN SQ 09/01/16 12:45 10/01/16 12:44 Miscellaneous Information (Consult Glycemic Management Pharmacy) 1 ea UD PRN N/A 09/01/16 13:19 10/01/16 13:18 Miconazole Nitrate (Desenex Powder) 1 appln PRN PRN EXT 09/01/16 15:15 10/01/16 15:14 Insulin Aspart (novoLOG ASPART) SLIDING SCALE If C... ACHS SC 09/02/16 11:00 10/02/16 10:59 09/04/16 07:59 10 UNITS Clopidogrel Bisulfate (plAVix TAB) 75 mg QAM PO 09/03/16 09:00 10/03/16 08:59 09/04/16 07:43 75 MG Miscellaneous Information (Pharmacist Discharge Med Rec Consult) 1 ea UD PRN N/A 09/03/16 08:45 10/03/16 08:44 Atorvastatin Calcium (Lipitor Tab) 40 mg PM PO 09/03/16 21:00 10/03/16 20:59 09/03/16 20:53 40 MG Hydralazine HCl (Apresoline Tab) 25 mg BID PO 09/04/16 09:00 10/04/16 08:59 09/04/16 07:52 25 MG Insulin Glargine (Lantus Solostar Pen) 15 units QAM SC 09/04/16 09:00 10/04/16 08:59 09/04/16 08:00 15 UNITS Insulin Glargine (Lantus Solostar Pen) 12 units PM SC 09/04/16 21:00 10/04/16 20:59 Last 24 Hours Test 09/03/16 11:33 09/03/16 16:44 09/03/16 20:43 09/04/16 05:59 Bedside Glucose 114 mg/dl 189 mg/dl 135 mg/dl White Blood Count 7.82 K/uL Red Blood Count 3.05 M/uL Hemoglobin 8.7 g/dL Hematocrit 26.9 % Mean Corpuscular Volume 88.2 fL Mean Corpuscular Hemoglobin 28.5 pg Mean Corpuscular Hemoglobin Concent 32.3 g/dl RDW Standard Deviation 46.8 fL RDW Coefficient of Variation 14.4 % Platelet Count 207 K/uL Mean Platelet Volume 10.1 fL Sodium Level 140 mmol/L Potassium Level 4.2 mmol/L Chloride Level 107 mmol/L Carbon Dioxide Level 25 mmol/L Anion Gap 8.0 mmol/L Blood Urea Nitrogen 84 mg/dl Creatinine 4.10 mg/dl Est Creatinine Clear Calc Drug Dose 13.5 ml/min Estimated GFR () 12.3 Estimated GFR (Non- 10.6 BUN/Creatinine Ratio 20.4 Random Glucose 125 mg/dl Calcium Level 8.9 mg/dl Test 09/04/16 07:42 Bedside Glucose 137 mg/dl Assessment & Plan 66 y/o F w/ chronic diastolic HF, 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 Found to have R cerebellar acute ischemic stroke. No evidence of myocardial ischemia or infarction. ESRD not on dialysis -no indication for acute dialysis today but will follow closely -baseline creatinine mid 3's>above baseline currently -s/p AVF creation 08/19/16 -pls cont strict I/O -daily bmp, fluid limit 1.5L, <2 gm daily Na diet and low K diet recommended Acute ischemic stroke w/ permissive HTN per neurology -liberal BP targets as per neurology; from renal standpoint, goal sbp < 140-150 after d/c -on plavix; neuro following >>>probably needs to be fed Anemia of chronic disease -on outpt procrit; monitor cbc daily Appreciate consultation; will follow with you.
--- NOTE | 2016-09-04 11:44 | Pharmacy Progress Note ---
Glycemic Control Progress Note Date of Service Sep 04, 2016. Scope Glycemic Pharmacist consulted for glycemic control to write orders per [facility] inpatient glycemic control protocol. Objective Accuchecks BSG (last 24hrs): Test 09/03/16 16:44 09/03/16 20:43 09/04/16 05:59 09/04/16 07:42 Bedside Glucose 189 mg/dl (70-90) 135 mg/dl (70-90) 137 mg/dl (70-90) Random Glucose 125 mg/dl (70-99) HbA1c: Test 09/02/16 05:40 Hemoglobin A1c 6.3 % (4.5-5.6) H * However, this result is likely somewhat unreliable in ESRD patients d/t interactions between the A1c analyzing technique and high levels of urea in ESRD , reduced RBC life span, iron deficiency anemia, and EPO administration. HbA1c > 7.5% in ESRD patient may overestimate the extent of hyperglycemia in ESRD patients. Recent Pertinent Medications The patient is currently receiving: * Basal insulin: Lantus 15 units every morning and 12 units in the evening * Correctional Insulin: Novolog Correction per scale ACHS Goal Range: Low 120 mg/dL - High 140 mg/dL Correction Factor: 15 mg/dL/unit * Prandial insulin: Per carb ratio of 1 unit per 6 grams CHO consumed Outpatient Anti-Diabetic Meds Basal Insulin * NPH 26 units SQ AM + 22 units SQ HS Bolus Insulin * Regular insulin ACHS SSI ~ 15 units Total daily outpatient dose ~ 108 units/day Assessment & Plan ASSESSMENT: * 66 yr old female admitted with chest pain, r/o ACS. Patient is well known to the glycemic service. See note from 09/01 for background. * Recent improvement in A1c from 8.9 % in June 2016 to 6.3 % in August 2016, however, this could be somewhat unreliable d/t anemia, CKD, and altered RBC turnover rate. Regardless, BSGs from June 2016 admission and this admission reflect good glycemic control. Outpatient insulin doses were tapered down after last admission. * Changes needed to insulin regimen: * Fasting BSG = 137 mg/dL. This is in goal for patient based on age and co- morbidities. Diet continues to advance. Current basal insulin dosing is reduced for NPO/clear liquid/minimal PO intake. Start tapering up towards outpatient dosing cautiously. * Post prandial BSG are in range. No changes needed to bolus insulin parameters * Scr continues to rise. Renal impairment can lead to increased response to given doses of insulin. Will titrate insulin regimen cautiously. PLAN FOR INPATIENT GLYCEMIC CONTROL: * Basal insulin: increase dose, start tapering back up to outpatient dosing for resumed full PO intake * Lantus 20 units SQ BID * Bolus insulin: No change * NovoLog per scale ACHS or Q6hrs while NPO * Goal Range: Low 120 mg/dL - High 140 mg/dL * Correction Factor: 15 mg/dL/unit * Nutritional / Prandial insulin per carb ratio of 1 unit per 6 grams CHO consumed DISCHARGE RECOMMENDATIONS: * Adequate outpatient glycemic control evidenced by A1c of 6.3 % (09/02/16) * Recommend continuing current home regimen on discharge * NPH 26 units SQ qAM, 22 units SQ qPM * Regular insulin SQ ACHS per sliding scale * Please note that the plan above was derived based on current level of insulin resistance and hospital stress. These recommendations are appropriate for inpatient admission only. Plan of care upon discharge will need to be reassessed to avoid potential outpatient hypo/hyperglycemia. Thank you.
--- NOTE | 2016-09-04 16:50 | PROGRESS NOTE ---
DATE: 09/04/2016 Sepideh looks about the same. She has a mild left upper motor neuron facial paresis, mild weakness and clumsiness in the left arm which is actually a little better today than it was and some clumsiness in the left leg. Is able to ambulate with a walker and has only mild dysarthria, no real significant dysphagia. She thinks she is off to [facility], but I am not sure when this is going to occur. 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 Fortunately, this did not extend further and produce a 6th nerve palsy or Tipton's syndrome which can occur in these affairs. 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 She is going to need some rehab time and we are simply going to continue her on her antiplatelet therapy at this point. This should continue for about 3 months. We are going to see her in neurology clinic in 3-6 weeks after her from whatever rehabilitation facility she enters. Ashley Zimmerman PA-C and I will take a look at her tomorrow if she is still here. Otherwise, plans are as outlined. BORIS
[2016-09-04] MEDS: ATORVASTATIN 40 MG TAB PO SCH (22:08)
[2016-09-04] MEDS: ASPIRIN 81 MG ECTAB PO SCH (22:08)
[2016-09-04] MEDS: ACETAMINOPHEN 325 MG TAB PO PRN (22:32)
--- NOTE | 2016-09-04 23:26 | Progress Note ---
Medicine Progress Note Date & Time of Visit: Sep 04, 2016 at 16:29. Subjective This is a 66yo F with PMH of diastolic CHF, DM II, CKD IV, HTN, HLD and chronic anemia who presents with chest pain and left sided weakness x 2 days. -no changes today -she has been ambulating with assist and lightheadedness is improved. -denies cp/sob/n/v. etc -L hand numbness resolving. -L side weakness is improved. Objective Last 8 Hrs Date Time Temp Pulse Resp B/P (MAP) Pulse Ox O2 Delivery O2 Flow Rate FiO2 09/04/16 15:53 36.5 57 18 148/62 (90) 99 Room Air 09/04/16 12:00 Room Air 09/04/16 11:43 36.5 59 16 139/55 (83) 97 Room Air Physical Exam: GEN: obese, in no acute distress, alert and appropriate, sitting in bedside chair HEENT: NC/AT, normal sclerae, MMM CARDIO: reg rate, S1/2 heard without m/g/r, no edema LUNGS: CTA bilaterally, no crackles, rales or wheezes, good diaphragmatic excursion ABD: soft, non-tender, non-distended but protuberant, no rebound or guarding +BS EXTREMITY: RP and DP palpable 2+ bilat, no LE swelling or edema, extremities are warm and well-perfused NEURO: CN 2-12 intact, sensation intact throughout, Gait was not assessed as she was a fall risk. MUSC: 5/5 strength on the right with some guarding of her RUE/R shoulder. LUE and LLE have 4/5 strength throughout. Finger spread is weak in the L hand compared to the right. Die Stamper strength intact bilaterally and is equal. SKIN: warm and dry Laboratory Results: 09/04/16 05:59 09/04/16 05:59 Test 09/01/16 09:59 09/01/16 10:10 09/01/16 10:17 09/01/16 21:58 Total Bilirubin 0.2 mg/dl (0.2-1) Direct Bilirubin < 0.1 mg/dl (0-0.2) Aspartate Amino Transf (AST/SGOT) 19 U/L (15-37) Alanine Aminotransferase (ALT/SGPT) 25 U/L (12-78) Alkaline Phosphatase 70 U/L (45-117) Total Creatine Kinase 82 U/L (26-192) Pro-B-Type Natriuretic Peptide 1340 pg/ml (0-900) Total Protein 6.6 gm/dl (6.4-8.2) Albumin 2.9 gm/dl (3.4-5.0) Lipase 142 U/L (73-393) Bedside Hemoglobin 8.2 g/dl (12.0-16.0) Bedside Hematocrit 24 % (37-47) Bedside Sodium 140 mEq/L (135-144) Bedside Potassium 4.7 mEq/L (3.3-5.0) Bedside Chloride 108 mEq/L (101-112) Bedside Total CO2 21 mEq/l (24-31) Bedside Blood Urea Nitrogen 95 mg/dl (7-18) Bedside Creatinine 4.0 mg/dl (0.6-1.3) Bedside Glucose (other) 127 mg/dl (70-99) Bedside Ionized Calcium (Lucinda) 1.08 mmol/l (1.12-1.32) Immature Granulocyte % (Auto) 0.3 % White Blood Count 8.99 K/uL (4.8-10.8) Red Blood Count 3.08 M/uL (4.2-5.4) Hemoglobin 8.8 g/dL (12.0-16.0) Hematocrit 27.6 % (37-47) Mean Corpuscular Volume 89.6 fL (80-100) Mean Corpuscular Hemoglobin 28.6 pg (25-34) Mean Corpuscular Hemoglobin Concent 31.9 g/dl (32-36) Platelet Count 211 K/uL (130-400) Mean Platelet Volume 10.9 fL (7.4-10.4) Neutrophils (%) (Auto) 73.3 % Lymphocytes (%) (Auto) 16.8 % Monocytes (%) (Auto) 5.5 % Eosinophils (%) (Auto) 3.8 % Basophils (%) (Auto) 0.3 % Neutrophils # (Auto) 6.59 K/uL (1.4-6.5) Lymphocytes # (Auto) 1.51 K/uL (1.2-3.4) Monocytes # (Auto) 0.49 K/uL (0.11-0.59) Eosinophils # (Auto) 0.34 K/uL (0-0.5) Basophils # (Auto) 0.03 K/uL (0-0.2) Immature Granulocyte # (Auto) 0.03 K/uL (0.00-0.02) Red Blood Cell Morphology Unremarkable Creatine Kinase MB 2.2 ng/ml (0.5-3.6) Creatine Kinase MB Ratio (0-3.0) Troponin I < 0.015 ng/ml (0-0.045) Test 09/02/16 05:40 09/03/16 05:39 09/04/16 05:59 09/04/16 20:28 Estimated Average Glucose 134 mg/dl Hemoglobin A1c 6.3 % (4.5-5.6) Phosphorus Level 5.1 mg/dl (2.5-4.9) Magnesium Level 2.1 mg/dl (1.8-2.4) Triglycerides Level 180 mg/dl (0-150) Cholesterol Level 114 mg/dl (0-200) HDL Cholesterol 27 mg/dl LDL Cholesterol, Calculated 51 mg/dl VLDL Cholesterol, Calculated 36 mg/dl Cholesterol/HDL Ratio 4.2 Vitamin B12 Level 427 pg/mL (211-911) 25-Hydroxy Vitamin D Total 38.1 ng/ml (30-100) Folate > 24.00 ng/mL (>5.38) Red Blood Count 3.05 M/uL (4.2-5.4) Mean Corpuscular Volume 88.2 fL (80-100) Mean Corpuscular Hemoglobin 28.5 pg (25-34) Mean Corpuscular Hemoglobin Concent 32.3 g/dl (32-36) RDW Standard Deviation 46.8 fL (36.4-46.3) RDW Coefficient of Variation 14.4 % (11.5-14.5) Mean Platelet Volume 10.1 fL (7.4-10.4) Anion Gap 8.0 mmol/L (3-11) Est Creatinine Clear Calc Drug Dose 13.5 ml/min Estimated GFR () 12.3 Estimated GFR (Non- 10.6 BUN/Creatinine Ratio 20.4 (10-20) Calcium Level 8.9 mg/dl (8.5-10.1) Bedside Glucose 126 mg/dl (70-90) Last 24 Hours Test 09/03/16 16:44 09/03/16 20:43 09/04/16 05:59 7/27/17 07:42 Bedside Glucose 189 mg/dl 135 mg/dl 137 mg/dl White Blood Count 7.82 K/uL Red Blood Count 3.05 M/uL Hemoglobin 8.7 g/dL Hematocrit 26.9 % Mean Corpuscular Volume 88.2 fL Mean Corpuscular Hemoglobin 28.5 pg Mean Corpuscular Hemoglobin Concent 32.3 g/dl RDW Standard Deviation 46.8 fL RDW Coefficient of Variation 14.4 % Platelet Count 207 K/uL Mean Platelet Volume 10.1 fL Sodium Level 140 mmol/L Potassium Level 4.2 mmol/L Chloride Level 107 mmol/L Carbon Dioxide Level 25 mmol/L Anion Gap 8.0 mmol/L Blood Urea Nitrogen 84 mg/dl Creatinine 4.10 mg/dl Est Creatinine Clear Calc Drug Dose 13.5 ml/min Estimated GFR () 12.3 Estimated GFR (Non- 10.6 BUN/Creatinine Ratio 20.4 Random Glucose 125 mg/dl Calcium Level 8.9 mg/dl Test 09/04/16 11:38 Bedside Glucose 164 mg/dl Assessment & Plan This is a 66yo F with PMH of diastolic CHF, DM II, CKD IV, HTN, HLD and chronic anemia who presents with chest pain and left sided weakness x 2 days. 1. R Cerebellar infarction (CVA): based on clinical findings and MRI last night. Plavix was added to ASA and will cont for 3 months, and then Plavix indef per Neuro. Will require inpatient rehab. No issues with swallowing or dysphagia. Cont Lipitor. 2. Atypical chest tightness--resolved and will need stress test down the road. Will delay 1-2 months and then have patient follow-up with Cardiology as outpatient to discuss. 3. Diastolic CHF: chronic, no acute exacerbation at this time. Cont medical management and good BP control efforts. 4. Chronic anemia: -Improved to 8.7 today, above baseline. -recent iron levels reviewed as outpatient. Cont Fe supplementation -Receives Procrit injections every 2 weeks-received on admission -Monitor H&H. No indication for transfusion at this time. 5. Saravanan in setting of CKD IV: -Dialysis fistula placed in L forearm by Dr. Chambers 2 weeks ago. -Plan to start dialysis if needed moving forward. She has a creatinine of 4 with a baseline of 3. -Neprho following peripherally-currently no indication for acute HD. 6. DM II: A1C 6.3 reflecting excellent control; SSI while in-patient. Placed glycemic control consult with pharm. At goal. 7. HTN: controlled, cont home meds for management 8. KUSHAL-nightly CPAP DVT Ppx: Heparin Code status: FULL PCP: Dr. Golden Dispo: [facility] Consultants: Cardiology-Dr. Wang Neurology-Dr. Izaguirre Nephrology-Dr. Kessler Current Inpatient Medications: Current Inpatient Medications Medications (Trade) Dose Ordered Sig/Aleks Route Start Time Stop Time Status Last Admin Dose Admin Miscellaneous (Iv Fluids Completed) 1 ea PRN PRN N/A 09/01/16 12:15 09/01/17 12:14 Heparin Sodium (Porcine) (Heparin Sq 5000 Unit/0.5ml) 5,000 unit Q12 SQ 09/01/16 21:00 10/01/16 20:59 09/04/16 07:49 5,000 UNIT Acetaminophen (Tylenol Tab) 650 mg Q4H PRN PO 09/01/16 12:15 10/01/16 12:14 09/03/16 08:00 650 MG Ondansetron HCl (Zofran Inj) 4 mg Q6H PRN IV 09/01/16 12:15 10/01/16 12:14 Nitroglycerin (Nitrostat Tab) 0.4 mg UD PRN SL 09/01/16 12:15 10/01/16 12:14 Amlodipine Besylate (Norvasc Tab) 2.5 mg DAILY PO 09/02/16 09:00 10/02/16 08:59 09/04/16 07:43 2.5 MG Aspirin (Ecotrin Tab) 81 mg QPM PO 09/02/16 21:00 10/02/16 20:59 09/03/16 20:52 81 MG Calcium/Vitamin D (Caltrate Plus Tab) 1 tab BID PO 09/01/16 21:00 10/01/16 20:59 09/04/16 07:42 1 TAB Carvedilol (Coreg Tab) 12.5 mg BID PO 09/01/16 21:00 10/01/16 20:59 09/04/16 07:42 12.5 MG Docusate Sodium (coLACE CAP) 100 mg BID PRN PO 09/01/16 12:30 10/01/16 12:29 Furosemide (Lasix Tab) 40 mg BID17 PO 09/01/16 21:00 10/01/16 20:59 09/04/16 07:42 40 MG Magnesium Oxide (Mag-Ox Tab) 400 mg QAM PO 09/02/16 09:00 10/02/16 08:59 09/04/16 07:42 400 MG Meclizine HCl (Antivert Tab) 25 mg TID PRN PO 09/01/16 12:30 10/01/16 12:29 Multivitamins (Multivitamin Tab) 1 tab QAM PO 09/02/16 09:00 10/02/16 08:59 09/04/16 07:42 1 TAB Nystatin (Mycostatin Powder) 1 appln TID PRN EXT 09/01/16 12:30 10/01/16 12:29 09/02/16 20:07 1 APPLN Sumatriptan Succinate (Imitrex Tab) 25 mg UD PRN PO 09/01/16 12:30 10/01/16 12:29 Cholecalciferol (Vitamin D Tab) 5,000 inter.unit QAM PO 09/02/16 09:00 10/02/16 08:59 09/04/16 07:43 5,000 INTER.UNIT Ferrous Sulfate (Feosol Tab) 325 mg BIDM PO 09/01/16 17:00 10/01/16 17:59 09/04/16 07:42 325 MG Pantoprazole Sodium (Protonix Tab) 40 mg QAM PO 09/02/16 09:00 10/02/16 08:59 09/04/16 07:43 40 MG Glucose (Glucose 40% Gel) 15-30 GRAMS 15 GRAMS... UD PRN PO 09/01/16 12:45 10/01/16 12:44 Glucose (Glucose Chew Tab) 4-8 Tablets 4 Tabl... UD PRN PO 09/01/16 12:45 10/01/16 12:44 Dextrose (Dextrose 50% 50ML Syringe) 25-50ML OF 50% DW IV FOR... UD PRN IV 09/01/16 12:45 10/01/16 12:44 Glucagon (Glucagon Inj) 1 mg UD PRN SQ 09/01/16 12:45 10/01/16 12:44 Miscellaneous Information (Consult Glycemic Management Pharmacy) 1 ea UD PRN N/A 09/01/16 13:19 10/01/16 13:18 Miconazole Nitrate (Desenex Powder) 1 appln PRN PRN EXT 09/01/16 15:15 10/01/16 15:14 Insulin Aspart (novoLOG ASPART) SLIDING SCALE If C... ACHS SC 09/02/16 11:00 10/02/16 10:59 09/04/16 12:07 9 UNITS Clopidogrel Bisulfate (plAVix TAB) 75 mg QAM PO 09/03/16 09:00 10/03/16 08:59 09/04/16 07:43 75 MG Miscellaneous Information (Pharmacist Discharge Med Rec Consult) 1 ea UD PRN N/A 09/03/16 08:45 10/03/16 08:44 Atorvastatin Calcium (Lipitor Tab) 40 mg PM PO 09/03/16 21:00 10/03/16 20:59 09/03/16 20:53 40 MG Hydralazine HCl (Apresoline Tab) 25 mg BID PO 09/04/16 09:00 10/04/16 08:59 09/04/16 07:52 25 MG Insulin Glargine (Lantus Solostar Pen) 20 units BID SC 09/04/16 21:00 10/04/16 20:59
[2016-09-05] VITALS (8 sets, daily range): BP systolic 135–164; BP diastolic 57–78; PULSE 58–64; TEMP 36.5–36.8; O2SAT 94–98
[2016-09-05 06:35] LABS: BUN/CREATININE RATIO 20.6 (10-20); CALCIUM 8.8 mg/dl (8.5-10.1); CREATININE 4.4 mg/dl (0.60-1.20); POTASSIUM 3.9 mmol/L (3.5-5.1)
[2016-09-05] MEDS: CHOLECALCIFEROL 1000 INTER.UNIT TAB PO SCH (08:18)
[2016-09-05] MEDS: CLOPIDOGREL BISULFATE 75 MG TAB PO SCH (08:19)
[2016-09-05] MEDS: FERROUS SULFATE 325 MG TAB PO SCH ×2 (08:19→17:46)
[2016-09-05] MEDS: CARVEDILOL 12.5 MG TAB PO SCH ×2 (08:19→20:35)
[2016-09-05] MEDS: AMLODIPINE BESYLATE 5 MG TAB PO SCH (08:21)
[2016-09-05] MEDS: PANTOprazole SOD 40 MG TAB PO SCH (08:21)
[2016-09-05] MEDS: CALCIUM 600MG + VIT D 400 IU TAB PO SCH ×2 (08:22→20:35)
[2016-09-05] MEDS: MULTIVITAMIN TAB PO SCH (08:23)
[2016-09-05] MEDS: HEPARIN SOD 5000 UNIT/0.5 ML CARP SQ SCH ×2 (08:26→20:55)
[2016-09-05] MEDS: INSULIN ASPART 100 UNITS/ML 3 ML PEN SC SCH ×4 (08:28→20:54)
[2016-09-05] MEDS: INSULIN GLARGINE SOLOSTAR 100 UNITS/ML 3 ML PEN SC SCH ×2 (08:30→20:55)
--- NOTE | 2016-09-05 08:59 | Nephrology Progress Note ---
Nephrology Progress Note Date of Service: Sep 05, 2016. 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 no pain except LLE hyperesthesia; voiding well lost weight on standing scale Objective Date Time Temp Pulse Resp B/P (MAP) Pulse Ox O2 Delivery O2 Flow Rate FiO2 09/05/16 04:00 Room Air 09/05/16 04:00 36.8 62 18 149/60 (89) 95 Room Air 09/05/16 00:00 36.7 63 18 154/60 (91) 94 Room Air 09/05/16 00:00 Room Air 09/04/16 20:00 99 Room Air 09/04/16 19:36 36.8 64 18 171/53 (92) 95 Room Air 09/04/16 16:00 99 Room Air 09/04/16 15:53 36.5 57 18 148/62 (90) 99 Room Air 09/04/16 12:00 Room Air 09/04/16 11:43 36.5 59 16 139/55 (83) 97 Room Air 09/04/16 07:45 Room Air 09/04/16 07:37 36.8 64 18 182/66 (104) 96 Room Air Physical Exam: General Appearance: WD/WN, no apparent distress, + obese (on RA nad) Eyes: EOMI ENT: hearing grossly normal Neck: supple Respiratory/Chest: lungs clear, normal breath sounds, + decreased breath sounds Cardiovascular: regular rate, rhythm, no edema Abdomen: normal bowel sounds, non tender, soft, + pertinent finding (no teague) Extremities: no pedal edema, + pertinent finding (AVF L A-C + t/b) Neurologic/Psych: alert, normal mood/affect, oriented x 3 Skin: no jaundice, warm/dry, no rash Current Inpatient Medications Medications (Trade) Dose Ordered Sig/Aleks Route Start Time Stop Time Status Last Admin Dose Admin Miscellaneous (Iv Fluids Completed) 1 ea PRN PRN N/A 09/01/16 12:15 09/01/17 12:14 Heparin Sodium (Porcine) (Heparin Sq 5000 Unit/0.5ml) 5,000 unit Q12 SQ 09/01/16 21:00 10/01/16 20:59 09/04/16 22:01 5,000 UNIT Acetaminophen (Tylenol Tab) 650 mg Q4H PRN PO 09/01/16 12:15 10/01/16 12:14 09/04/16 22:32 650 MG Ondansetron HCl (Zofran Inj) 4 mg Q6H PRN IV 09/01/16 12:15 10/01/16 12:14 Nitroglycerin (Nitrostat Tab) 0.4 mg UD PRN SL 09/01/16 12:15 10/01/16 12:14 Amlodipine Besylate (Norvasc Tab) 2.5 mg DAILY PO 09/02/16 09:00 10/02/16 08:59 09/04/16 07:43 2.5 MG Aspirin (Ecotrin Tab) 81 mg QPM PO 09/02/16 21:00 10/02/16 20:59 09/04/16 22:08 81 MG Calcium/Vitamin D (Caltrate Plus Tab) 1 tab BID PO 09/01/16 21:00 10/01/16 20:59 09/04/16 22:06 1 TAB Carvedilol (Coreg Tab) 12.5 mg BID PO 09/01/16 21:00 10/01/16 20:59 09/04/16 22:07 12.5 MG Docusate Sodium (coLACE CAP) 100 mg BID PRN PO 09/01/16 12:30 10/01/16 12:29 Furosemide (Lasix Tab) 40 mg BID17 PO 09/01/16 21:00 10/01/16 20:59 09/04/16 18:33 40 MG Magnesium Oxide (Mag-Ox Tab) 400 mg QAM PO 09/02/16 09:00 10/02/16 08:59 09/04/16 07:42 400 MG Meclizine HCl (Antivert Tab) 25 mg TID PRN PO 09/01/16 12:30 10/01/16 12:29 Multivitamins (Multivitamin Tab) 1 tab QAM PO 09/02/16 09:00 10/02/16 08:59 09/04/16 07:42 1 TAB Nystatin (Mycostatin Powder) 1 appln TID PRN EXT 09/01/16 12:30 10/01/16 12:29 09/02/16 20:07 1 APPLN Sumatriptan Succinate (Imitrex Tab) 25 mg UD PRN PO 09/01/16 12:30 10/01/16 12:29 Cholecalciferol (Vitamin D Tab) 5,000 inter.unit QAM PO 09/02/16 09:00 10/02/16 08:59 09/04/16 07:43 5,000 INTER.UNIT Ferrous Sulfate (Feosol Tab) 325 mg BIDM PO 09/01/16 17:00 10/01/16 17:59 09/04/16 18:34 325 MG Pantoprazole Sodium (Protonix Tab) 40 mg QAM PO 09/02/16 09:00 10/02/16 08:59 09/04/16 07:43 40 MG Glucose (Glucose 40% Gel) 15-30 GRAMS 15 GRAMS... UD PRN PO 09/01/16 12:45 10/01/16 12:44 Glucose (Glucose Chew Tab) 4-8 Tablets 4 Tabl... UD PRN PO 09/01/16 12:45 10/01/16 12:44 Dextrose (Dextrose 50% 50ML Syringe) 25-50ML OF 50% DW IV FOR... UD PRN IV 09/01/16 12:45 10/01/16 12:44 Glucagon (Glucagon Inj) 1 mg UD PRN SQ 09/01/16 12:45 10/01/16 12:44 Miscellaneous Information (Consult Glycemic Management Pharmacy) 1 ea UD PRN N/A 09/01/16 13:19 10/01/16 13:18 Miconazole Nitrate (Desenex Powder) 1 appln PRN PRN EXT 09/01/16 15:15 10/01/16 15:14 Insulin Aspart (novoLOG ASPART) SLIDING SCALE If C... ACHS SC 09/02/16 11:00 10/02/16 10:59 09/04/16 18:35 5 UNITS Clopidogrel Bisulfate (plAVix TAB) 75 mg QAM PO 09/03/16 09:00 10/03/16 08:59 09/04/16 07:43 75 MG Miscellaneous Information (Pharmacist Discharge Med Rec Consult) 1 ea UD PRN N/A 09/03/16 08:45 10/03/16 08:44 Atorvastatin Calcium (Lipitor Tab) 40 mg PM PO 09/03/16 21:00 10/03/16 20:59 7/27/17 22:08 40 MG Hydralazine HCl (Apresoline Tab) 25 mg BID PO 09/04/16 09:00 10/04/16 08:59 09/04/16 22:06 25 MG Insulin Glargine (Lantus Solostar Pen) 20 units BID SC 09/04/16 21:00 10/04/16 20:59 09/04/16 22:00 20 UNITS Last 24 Hours Test 09/04/16 07:42 09/04/16 11:38 09/04/16 16:38 09/04/16 20:28 Bedside Glucose 137 mg/dl 164 mg/dl 136 mg/dl 126 mg/dl Test 09/05/16 05:47 Sodium Level 141 mmol/L Potassium Level 3.9 mmol/L Chloride Level 107 mmol/L Carbon Dioxide Level 22 mmol/L Anion Gap 12.0 mmol/L Blood Urea Nitrogen 91 mg/dl Creatinine 4.40 mg/dl Est Creatinine Clear Calc Drug Dose 12.6 ml/min Estimated GFR () 11.3 Estimated GFR (Non- 9.7 BUN/Creatinine Ratio 20.6 Random Glucose 118 mg/dl Calcium Level 8.8 mg/dl Assessment & Plan 66 y/o F w/ chronic diastolic HF, 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 Found to have R cerebellar acute ischemic stroke. No evidence of myocardial ischemia or infarction. ESRD not on dialysis -no indication for acute dialysis today but will follow closely -baseline creatinine mid 3's>above baseline currently w/ creat worse today (not a trend yet) but chemistries/ volume status acceptable; her weight is trending down -s/p AVF creation 08/19/16 -pls cont strict I/O -daily bmp, fluid limit 1.5L, <2 gm daily Na diet and low K diet recommended >>stopped lasix this am given worsening renal function and decreasing wts; ok to use prn resp distress however -stopped mag supplement; ordered mag level for am Acute ischemic stroke w/ permissive HTN per neurology -liberal BP targets as per neurology; from renal standpoint, goal sbp < 140- 150s after d/c -on plavix; neuro following >>>cont to monitor her ability to success w/ feeding self and chaparro w/ drinking water closely << 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
--- NOTE | 2016-09-05 09:29 | Pharmacy Progress Note ---
Glycemic Control Progress Note Date of Service Sep 05, 2016. Scope Glycemic Pharmacist consulted for glycemic control to write orders per [facility] inpatient glycemic control protocol. Objective Accuchecks BSG (last 24hrs): Test 09/04/16 11:38 09/04/16 16:38 09/04/16 20:28 09/05/16 05:47 Bedside Glucose 164 mg/dl (70-90) 136 mg/dl (70-90) 126 mg/dl (70-90) Random Glucose 118 mg/dl (70-99) Test 09/05/16 07:40 Bedside Glucose 137 mg/dl (70-90) HbA1c: Test 09/02/16 05:40 Hemoglobin A1c 6.3 % (4.5-5.6) H Recent Pertinent Medications The patient is currently receiving: * Basal insulin: Lantus 15 units in AM and 20 units in PM * Correctional Insulin: Novolog Correction per scale ACHS Goal Range: Low 120 mg/dL - High 140 mg/dL Correction Factor: 15 mg/dL/unit * Prandial insulin: Per carb ratio of 1 unit per 6 grams CHO consumed Outpatient Anti-Diabetic Meds Basal Insulin Bolus Insulin Total daily dose ~ 108 units Assessment & Plan ASSESSMENT: * 66 yr old female admitted with chest pain, r/o ACS. Patient is well known to the glycemic service. See note from 09/01 for background. * Recent improvement in A1c from 8.9 % in June 2016 to 6.3 % in August 2016, however, this could be somewhat unreliable d/t anemia, CKD, and altered RBC turnover rate. Regardless, BSGs from June 2016 admission and this admission reflect good glycemic control. Outpatient insulin doses were tapered down after last admission. * Changes needed to insulin regimen: * Fasting BSG = 118, 137 mg/dL. This is in goal for patient based on age and co -morbidities. Pt received 35 units of basal yesterday. Will re-distribute dosing evenly. * Post prandial BSG are in range @ 164, 136, 129 mg/dl. No changes needed to bolus insulin parameters * Scr continues to rise. Renal impairment can lead to increased response to given doses of insulin. Will titrate insulin regimen cautiously. PLAN FOR INPATIENT GLYCEMIC CONTROL: * Basal insulin: * Lantus 17 units SQ BID * Bolus insulin: No change * NovoLog per scale ACHS or Q6hrs while NPO * Goal Range: Low 120 mg/dL - High 140 mg/dL * Correction Factor: 15 mg/dL/unit * Nutritional / Prandial insulin per carb ratio of 1 unit per 6 grams CHO consumed DISCHARGE RECOMMENDATIONS: * Adequate outpatient glycemic control evidenced by A1c of 6.3 % (09/02/16) * Recommend continuing current home regimen on discharge * NPH 26 units SQ qAM, 22 units SQ qPM * Regular insulin SQ ACHS per sliding scale * Please note that the plan above was derived based on current level of insulin resistance and hospital stress. These recommendations are appropriate for inpatient admission only. Plan of care upon discharge will need to be reassessed to avoid potential outpatient hypo/hyperglycemia. Thank you.
--- NOTE | 2016-09-05 14:29 | Neurology Progress Notes ---
Neurology Progress Note Date of Service Sep 05, 2016. Brittany Bunn is a 66 year old female with PMH of diastolic CHF (EF: 60-64%), DM II, CKD IV, HTN, HLD and chronic anemia who presents with chest pain and left sided weakness x 2 days. she had chest tightness that felt like "an elephant sitting on my chest". It was intermittent, non-radiating and exacerbated with exertion but was relieved by rest. Also states that she started to feel weakness in her L side yesterday but was still able to ambulate by walker as usual. She states in the am she woke with L-sided weakness and required her 's help to sit up in bed. Was still able to ambulate by walker in house but then switched to wheelchair before presenting to ED. She states she was laying on the left side over night but that is normal for her. She has been up to the bathroom with assistance. still having some gripping issues with her hand. but was able to walk with her walker today. She states her knee is giving out on her but this has been an ongoing since her knee replacement. understands she had a stroke and plavix has been added to her medication list. denies slurred speech, swallowing issues, current CP, SOB, abdominal pain, falls, head injury, vision change other than her chronic issues , N, V. Objective Date Time Temp Pulse Resp B/P (MAP) Pulse Ox O2 Delivery O2 Flow Rate FiO2 09/05/16 12:00 Room Air 09/05/16 11:40 36.6 58 16 164/63 (96) 97 Room Air 09/05/16 08:00 Room Air 09/05/16 07:31 36.8 62 16 161/61 (94) 98 Room Air 09/05/16 04:00 Room Air 09/05/16 04:00 36.8 62 18 149/60 (89) 95 Room Air 09/05/16 00:00 36.7 63 18 154/60 (91) 94 Room Air 09/05/16 00:00 Room Air 09/04/16 20:00 99 Room Air 09/04/16 19:36 36.8 64 18 171/53 (92) 95 Room Air 09/04/16 16:00 99 Room Air 09/04/16 15:53 36.5 57 18 148/62 (90) 99 Room Air Last 24 Hours Test 09/04/16 16:38 09/04/16 20:28 09/05/16 05:47 09/05/16 07:40 Bedside Glucose 136 mg/dl 126 mg/dl 137 mg/dl Sodium Level 141 mmol/L Potassium Level 3.9 mmol/L Chloride Level 107 mmol/L Carbon Dioxide Level 22 mmol/L Anion Gap 12.0 mmol/L Blood Urea Nitrogen 91 mg/dl Creatinine 4.40 mg/dl Est Creatinine Clear Calc Drug Dose 12.6 ml/min Estimated GFR () 11.3 Estimated GFR (Non- 9.7 BUN/Creatinine Ratio 20.6 Random Glucose 118 mg/dl Calcium Level 8.8 mg/dl Test 09/05/16 11:30 Bedside Glucose 175 mg/dl Imaging: no new imaging Exam: Physical Exam: Constitutional: appearance nourished, healthy and obese Ears, Nose, Mouth and Throat: mucous membranes moist, no injection and skin normal, eyes normal Cardiovascular: normal S-1 and S-2 and regular rate and rhythm Respiratory: clear to auscultation (CTA) and no rales, rhonchi or wheeze Musculoskeletal: moderate peripheral edema Skin: no stigmata of neurocutaneous disease noted and normal and intact Eyes: extraocular muscles intact (EOMI) and pupils equal, round and reactive to light (PERRL) NEUROLOGIC EXAMINATION: Mental status: Alert and interactive Oriented to full date and location Oriented to person Speech fluent with no evidence of aphasia Cranial Nerves smile eye brow raise symmetric Coordination: finger to nose without bipass but unable to raise right arm above breast level Gait/Stance: sitting in bedside chair Strength: 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 biceps triceps right 5/5, left 4/5, hip flex 5/5 bilaterally Current Inpatient Medications Medications (Trade) Dose Ordered Sig/Aleks Route Start Time Stop Time Status Last Admin Dose Admin Miscellaneous (Iv Fluids Completed) 1 ea PRN PRN N/A 09/01/16 12:15 09/01/17 12:14 Heparin Sodium (Porcine) (Heparin Sq 5000 Unit/0.5ml) 5,000 unit Q12 SQ 09/01/16 21:00 10/01/16 20:59 09/05/16 08:26 5,000 UNIT Acetaminophen (Tylenol Tab) 650 mg Q4H PRN PO 09/01/16 12:15 10/01/16 12:14 09/04/16 22:32 650 MG Ondansetron HCl (Zofran Inj) 4 mg Q6H PRN IV 09/01/16 12:15 10/01/16 12:14 Nitroglycerin (Nitrostat Tab) 0.4 mg UD PRN SL 09/01/16 12:15 10/01/16 12:14 Amlodipine Besylate (Norvasc Tab) 2.5 mg DAILY PO 09/02/16 09:00 10/02/16 08:59 09/05/16 08:21 2.5 MG Aspirin (Ecotrin Tab) 81 mg QPM PO 09/02/16 21:00 10/02/16 20:59 09/04/16 22:08 81 MG Calcium/Vitamin D (Caltrate Plus Tab) 1 tab BID PO 09/01/16 21:00 10/01/16 20:59 09/05/16 08:22 1 TAB Carvedilol (Coreg Tab) 12.5 mg BID PO 09/01/16 21:00 10/01/16 20:59 09/05/16 08:19 12.5 MG Docusate Sodium (coLACE CAP) 100 mg BID PRN PO 09/01/16 12:30 10/01/16 12:29 Meclizine HCl (Antivert Tab) 25 mg TID PRN PO 09/01/16 12:30 10/01/16 12:29 Multivitamins (Multivitamin Tab) 1 tab QAM PO 09/02/16 09:00 10/02/16 08:59 09/05/16 08:23 1 TAB Nystatin (Mycostatin Powder) 1 appln TID PRN EXT 09/01/16 12:30 10/01/16 12:29 09/02/16 20:07 1 APPLN Sumatriptan Succinate (Imitrex Tab) 25 mg UD PRN PO 09/01/16 12:30 10/01/16 12:29 Cholecalciferol (Vitamin D Tab) 5,000 inter.unit QAM PO 09/02/16 09:00 10/02/16 08:59 09/05/16 08:18 5,000 INTER.UNIT Ferrous Sulfate (Feosol Tab) 325 mg BIDM PO 09/01/16 17:00 10/01/16 17:59 09/05/16 08:19 325 MG Pantoprazole Sodium (Protonix Tab) 40 mg QAM PO 09/02/16 09:00 10/02/16 08:59 09/05/16 08:21 40 MG Glucose (Glucose 40% Gel) 15-30 GRAMS 15 GRAMS... UD PRN PO 09/01/16 12:45 10/01/16 12:44 Glucose (Glucose Chew Tab) 4-8 Tablets 4 Tabl... UD PRN PO 09/01/16 12:45 10/01/16 12:44 Dextrose (Dextrose 50% 50ML Syringe) 25-50ML OF 50% DW IV FOR... UD PRN IV 09/01/16 12:45 10/01/16 12:44 Glucagon (Glucagon Inj) 1 mg UD PRN SQ 09/01/16 12:45 10/01/16 12:44 Miscellaneous Information (Consult Glycemic Management Pharmacy) 1 ea UD PRN N/A 09/01/16 13:19 10/01/16 13:18 Miconazole Nitrate (Desenex Powder) 1 appln PRN PRN EXT 09/01/16 15:15 10/01/16 15:14 Insulin Aspart (novoLOG ASPART) SLIDING SCALE If C... ACHS SC 09/02/16 11:00 10/02/16 10:59 09/05/16 12:20 12 UNITS Clopidogrel Bisulfate (plAVix TAB) 75 mg QAM PO 09/03/16 09:00 10/03/16 08:59 09/05/16 08:19 75 MG Miscellaneous Information (Pharmacist Discharge Med Rec Consult) 1 UD PRN N/A 09/03/16 08:45 10/03/16 08:44 Atorvastatin Calcium (Lipitor Tab) 40 mg PM PO 09/03/16 21:00 10/03/16 20:59 09/04/16 22:08 40 MG Hydralazine HCl (Apresoline Tab) 25 mg BID PO 09/04/16 09:00 10/04/16 08:59 09/05/16 08:21 25 MG Insulin Glargine (Lantus Solostar Pen) 17 units BID SC 09/05/16 09:00 10/05/16 08:59 09/05/16 08:30 17 UNITS Impression 66 year old with left sided weakness, and hand numbness- right cerebellar peduncle Plan 1. MRI without contrast due to renal function- new stroke right cerebellar peduncle 2. carotid Doppler- for any vascular issues from new event- no new occlusion or stenosis 3. already on aspirin 81 mg, Plavix 75 mg x 3 months duel therapy then stop aspirin and Plavix 75 mg for life 4. echo -cardiology consulted for medical management 5. optimize DL, DM, HTN. permissive for now but then controlled per renal criteria, DL <70 6. PT/OT speech for discharge needs 7. will see in office 1 month from rehab 8. will likely be here over the week end due to renal function I have seen and discussed above patient with Dr Vincenzo Izaguirre, neurology see my dictated note above reviewed with Ashley Izaguirre MD
--- NOTE | 2016-09-05 15:26 | PROGRESS NOTE ---
DATE: 09/05/2016 I saw Sepideh today, reviewed her case with Ashley Zimmerman PA-C and performed examination. She is largely the same. There is a very soft left upper motor neuron facial asymmetry, mild dysarthria of speech, clumsy left hand and a clumsy left leg. She is being held because of her renal dysfunction but once it stabilizes, then she probably needs to go to [facility] or an equivalent rehabilitation facility. We need to have her on aspirin and Plavix as per the prior notations. We need to see her in the office 4-6 weeks post-discharge from the rehabilitation facility she eventually enters [facility]
--- NOTE | 2016-09-05 17:48 | Progress Note ---
Medicine Progress Note Date & Time of Visit: Sep 05, 2016 at 17:36. Subjective This is a 66yo F with PMH of diastolic CHF, DM II, CKD IV, HTN, HLD and chronic anemia who presents with chest pain and left sided weakness x 2 days. -pt reports that she is eating without difficulty -she is ambulating better today-she has a left foot turnout that is chronic, and likely contributes to ambulatory dysfunction and use of walker -pt states that she has little to no numbness in her LUE/L hand, however "it feels weird"-she states that having it elevated on a pillow helps -denies any further chest pain. -will transfer off telemetry. Objective Last 8 Hrs Date Time Temp Pulse Resp B/P (MAP) Pulse Ox O2 Delivery O2 Flow Rate FiO2 09/05/16 16:00 Room Air 09/05/16 15:10 36.6 58 16 152/78 (102) 94 Room Air 09/05/16 12:00 Room Air 09/05/16 11:40 36.6 58 16 164/63 (96) 97 Room Air Physical Exam: GEN: obese, in no acute distress, alert and appropriate, sitting in bedside chair HEENT: NC/AT, normal sclerae, MMM CARDIO: reg rate, S1/2 heard without m/g/r, no edema LUNGS: CTA bilaterally, no crackles, rales or wheezes, good diaphragmatic excursion ABD: soft, non-tender, non-distended but protuberant, no rebound or guarding +BS EXTREMITY: RP and DP palpable 2+ bilat, no LE swelling or edema, extremities are warm and well-perfused NEURO: Positive [id number], neg Romberg, neg Adonay with hands, CN 2-12 intact , sensation intact throughout, Gait was not assessed as she was a fall risk. MUSC: 5/5 strength on the right with some guarding of her RUE/R shoulder. LUE and LLE have 5/5 strength throughout except finger spread is weak in the L hand compared to the right. Residential Program Worker strength intact bilaterally and is equal. SKIN: warm and dry Laboratory Results: 09/04/16 05:59 09/05/16 05:47 Test 09/01/16 09:59 09/01/16 10:10 09/01/16 10:17 09/01/16 21:58 Total Bilirubin 0.2 mg/dl (0.2-1) Direct Bilirubin < 0.1 mg/dl (0-0.2) Aspartate Amino Transf (AST/SGOT) 19 U/L (15-37) Alanine Aminotransferase (ALT/SGPT) 25 U/L (12-78) Alkaline Phosphatase 70 U/L (45-117) Total Creatine Kinase 82 U/L (26-192) Pro-B-Type Natriuretic Peptide 1340 pg/ml (0-900) Total Protein 6.6 gm/dl (6.4-8.2) Albumin 2.9 gm/dl (3.4-5.0) Lipase 142 U/L (73-393) Bedside Hemoglobin 8.2 g/dl (12.0-16.0) Bedside Hematocrit 24 % (37-47) Bedside Sodium 140 mEq/L (135-144) Bedside Potassium 4.7 mEq/L (3.3-5.0) Bedside Chloride 108 mEq/L (101-112) Bedside Total CO2 21 mEq/l (24-31) Bedside Blood Urea Nitrogen 95 mg/dl (7-18) Bedside Creatinine 4.0 mg/dl (0.6-1.3) Bedside Glucose (other) 127 mg/dl (70-99) Bedside Ionized Calcium (Lucinda) 1.08 mmol/l (1.12-1.32) Immature Granulocyte % (Auto) 0.3 % White Blood Count 8.99 K/uL (4.8-10.8) Red Blood Count 3.08 M/uL (4.2-5.4) Hemoglobin 8.8 g/dL (12.0-16.0) Hematocrit 27.6 % (37-47) Mean Corpuscular Volume 89.6 fL (80-100) Mean Corpuscular Hemoglobin 28.6 pg (25-34) Mean Corpuscular Hemoglobin Concent 31.9 g/dl (32-36) Platelet Count 211 K/uL (130-400) Mean Platelet Volume 10.9 fL (7.4-10.4) Neutrophils (%) (Auto) 73.3 % Lymphocytes (%) (Auto) 16.8 % Monocytes (%) (Auto) 5.5 % Eosinophils (%) (Auto) 3.8 % Basophils (%) (Auto) 0.3 % Neutrophils # (Auto) 6.59 K/uL (1.4-6.5) Lymphocytes # (Auto) 1.51 K/uL (1.2-3.4) Monocytes # (Auto) 0.49 K/uL (0.11-0.59) Eosinophils # (Auto) 0.34 K/uL (0-0.5) Basophils # (Auto) 0.03 K/uL (0-0.2) Immature Granulocyte # (Auto) 0.03 K/uL (0.00-0.02) Red Blood Cell Morphology Unremarkable Creatine Kinase MB 2.2 ng/ml (0.5-3.6) Creatine Kinase MB Ratio (0-3.0) Troponin I < 0.015 ng/ml (0-0.045) Test 09/02/16 05:40 09/03/16 05:39 09/04/16 05:59 09/05/16 05:47 Estimated Average Glucose 134 mg/dl Hemoglobin A1c 6.3 % (4.5-5.6) Phosphorus Level 5.1 mg/dl (2.5-4.9) Magnesium Level 2.1 mg/dl (1.8-2.4) Triglycerides Level 180 mg/dl (0-150) Cholesterol Level 114 mg/dl (0-200) HDL Cholesterol 27 mg/dl LDL Cholesterol, Calculated 51 mg/dl VLDL Cholesterol, Calculated 36 mg/dl Cholesterol/HDL Ratio 4.2 Vitamin B12 Level 427 pg/mL (211-911) 25-Hydroxy Vitamin D Total 38.1 ng/ml (30-100) Folate > 24.00 ng/mL (>5.38) Red Blood Count 3.05 M/uL (4.2-5.4) Mean Corpuscular Volume 88.2 fL (80-100) Mean Corpuscular Hemoglobin 28.5 pg (25-34) Mean Corpuscular Hemoglobin Concent 32.3 g/dl (32-36) RDW Standard Deviation 46.8 fL (36.4-46.3) RDW Coefficient of Variation 14.4 % (11.5-14.5) Mean Platelet Volume 10.1 fL (7.4-10.4) Anion Gap 12.0 mmol/L (3-11) Est Creatinine Clear Calc Drug Dose 12.6 ml/min Estimated GFR () 11.3 Estimated GFR (Non- 9.7 BUN/Creatinine Ratio 20.6 (10-20) Calcium Level 8.8 mg/dl (8.5-10.1) Test 09/05/16 16:40 Bedside Glucose 122 mg/dl (70-90) Last 24 Hours Test 09/04/16 20:28 09/05/16 05:47 09/05/16 07:40 09/05/16 11:30 Bedside Glucose 126 mg/dl 137 mg/dl 175 mg/dl Sodium Level 141 mmol/L Potassium Level 3.9 mmol/L Chloride Level 107 mmol/L Carbon Dioxide Level 22 mmol/L Anion Gap 12.0 mmol/L Blood Urea Nitrogen 91 mg/dl Creatinine 4.40 mg/dl Est Creatinine Clear Calc Drug Dose 12.6 ml/min Estimated GFR () 11.3 Estimated GFR (Non- 9.7 BUN/Creatinine Ratio 20.6 Random Glucose 118 mg/dl Calcium Level 8.8 mg/dl Test 09/05/16 16:40 Bedside Glucose 122 mg/dl Assessment & Plan This is a 66yo F with PMH of diastolic CHF, DM II, CKD IV, HTN, HLD and chronic anemia who presents with chest pain and left sided weakness x 2 days. 1. GARETH in setting of CKD IV: Dialysis fistula placed in L forearm by Dr. Chambers 2 weeks ago. Plan to start dialysis if needed moving forward. She has a creatinine of 4.4 today with a baseline of 3. Trend has been increasing since admission. Nephro following peripherally-currently no indication for acute HD. Dr. Holder holding Lasix. Pt reports PO intake is good at this time. Fluid restric to 1500mls daily with strict I/Os. Daily bmp,<2 gm daily Na diet and low K diet. 2. R Cerebellar infarction (CVA): based on clinical findings and MRI. Plavix was added to ASA and will cont for 3 months, and then Plavix indef per Neuro. Will require inpatient rehab. No issues with swallowing or dysphagia. Cont Lipitor. 3. Atypical chest tightness--resolved and will need stress test down the road. Will delay 1-2 months and then have patient follow-up with Cardiology as outpatient to discuss. 4. Diastolic CHF: chronic, no acute exacerbation at this time. Cont medical management and good BP control efforts. 5. Chronic anemia 2/2 iron deficiency and CKD. Cont iron supplementation and procrit per Nephrology recs. No indication for transfusion at this time. 6. DM II: A1C 6.3 reflecting excellent control; SSI while in-patient. Placed glycemic control consult with pharm. At goal. 7. HTN: controlled, cont home meds for management 8. KUSHAL-nightly CPAP DVT PPx: Heparin Code status: FULL PCP: Dr. Golden Dispo: hold discharge for a few days until kidney function levels out or improves. Likely reconsider dc to rehab on Thursday DO Jose Garcia Hospitalist Consultants: Cardiology-Dr. Wang Neurology-Dr. Izaguirre Nephrology-Dr. Kessler Current Inpatient Medications: Current Inpatient Medications Medications (Trade) Dose Ordered Sig/Aleks Route Start Time Stop Time Status Last Admin Dose Admin Miscellaneous (Iv Fluids Completed) 1 ea PRN PRN N/A 09/01/16 12:15 09/01/17 12:14 Heparin Sodium (Porcine) (Heparin Sq 5000 Unit/0.5ml) 5,000 unit Q12 SQ 09/01/16 21:00 10/01/16 20:59 09/05/16 08:26 5,000 UNIT Acetaminophen (Tylenol Tab) 650 mg Q4H PRN PO 09/01/16 12:15 10/01/16 12:14 09/04/16 22:32 650 MG Ondansetron HCl (Zofran Inj) 4 mg Q6H PRN IV 09/01/16 12:15 10/01/16 12:14 Nitroglycerin (Nitrostat Tab) 0.4 mg UD PRN SL 09/01/16 12:15 10/01/16 12:14 Amlodipine Besylate (Norvasc Tab) 2.5 mg DAILY PO 09/02/16 09:00 10/02/16 08:59 09/05/16 08:21 2.5 MG Aspirin (Ecotrin Tab) 81 mg QPM PO 09/02/16 21:00 10/02/16 20:59 09/04/16 22:08 81 MG Calcium/Vitamin D (Caltrate Plus Tab) 1 tab BID PO 09/01/16 21:00 10/01/16 20:59 09/05/16 08:22 1 TAB Carvedilol (Coreg Tab) 12.5 mg BID PO 09/01/16 21:00 10/01/16 20:59 09/05/16 08:19 12.5 MG Docusate Sodium (coLACE CAP) 100 mg BID PRN PO 09/01/16 12:30 10/01/16 12:29 Meclizine HCl (Antivert Tab) 25 mg TID PRN PO 09/01/16 12:30 10/01/16 12:29 Multivitamins (Multivitamin Tab) 1 tab QAM PO 09/02/16 09:00 10/02/16 08:59 09/05/16 08:23 1 TAB Nystatin (Mycostatin Powder) 1 appln TID PRN EXT 09/01/16 12:30 10/01/16 12:29 09/02/16 20:07 1 APPLN Sumatriptan Succinate (Imitrex Tab) 25 mg UD PRN PO 09/01/16 12:30 10/01/16 12:29 Cholecalciferol (Vitamin D Tab) 5,000 inter.unit QAM PO 09/02/16 09:00 10/02/16 08:59 09/05/16 08:18 5,000 INTER.UNIT Ferrous Sulfate (Feosol Tab) 325 mg BIDM PO 09/01/16 17:00 10/01/16 17:59 09/05/16 08:19 325 MG Pantoprazole Sodium (Protonix Tab) 40 mg QAM PO 09/02/16 09:00 10/02/16 08:59 09/05/16 08:21 40 MG Glucose (Glucose 40% Gel) 15-30 GRAMS 15 GRAMS... UD PRN PO 09/01/16 12:45 10/01/16 12:44 Glucose (Glucose Chew Tab) 4-8 Tablets 4 Tabl... UD PRN PO 09/01/16 12:45 10/01/16 12:44 Dextrose (Dextrose 50% 50ML Syringe) 25-50ML OF 50% DW IV FOR... UD PRN IV 09/01/16 12:45 10/01/16 12:44 Glucagon (Glucagon Inj) 1 mg UD PRN SQ 09/01/16 12:45 10/01/16 12:44 Miscellaneous Information (Consult Glycemic Management Pharmacy) 1 ea UD PRN N/A 09/01/16 13:19 8/23/17 13:18 Miconazole Nitrate (Desenex Powder) 1 appln PRN PRN EXT 09/01/16 15:15 10/01/16 15:14 Insulin Aspart (novoLOG ASPART) SLIDING SCALE If C... ACHS SC 09/02/16 11:00 10/02/16 10:59 09/05/16 12:20 12 UNITS Clopidogrel Bisulfate (plAVix TAB) 75 mg QAM PO 09/03/16 09:00 10/03/16 08:59 09/05/16 08:19 75 MG Miscellaneous Information (Pharmacist Discharge Med Rec Consult) 1 ea UD PRN N/A 09/03/16 08:45 10/03/16 08:44 Atorvastatin Calcium (Lipitor Tab) 40 mg PM PO 09/03/16 21:00 10/03/16 20:59 09/04/16 22:08 40 MG Hydralazine HCl (Apresoline Tab) 25 mg BID PO 09/04/16 09:00 10/04/16 08:59 09/05/16 08:21 25 MG Insulin Glargine (Lantus Solostar Pen) 17 units BID SC 09/05/16 09:00 10/05/16 08:59 09/05/16 08:30 17 UNITS
[2016-09-05] MEDS: ASPIRIN 81 MG ECTAB PO SCH (20:35)
[2016-09-05] MEDS: ATORVASTATIN 40 MG TAB PO SCH (20:35)
[2016-09-05] MEDS: ACETAMINOPHEN 325 MG TAB PO PRN (20:58)
[2016-09-06 04:25] VITALS: BP 144/60; PULSE 57; TEMP 36.5; O2SAT 97
[2016-09-06 07:17] LABS: HEMATOCRIT 26.2 % (37-47); MEAN CELL VOLUME 87.9 fL (80-100); MEAN CORPUSCULAR HEMOGLOBIN 29.2 pg (25-34); MEAN CORPUSCULAR HGB CONC 33.2 g/dl (32-36); MEAN PLATELET VOLUME 11.2 fL (7.4-10.4); PLATELET COUNT 191 K/uL (130-400); RED BLOOD COUNT 2.98 M/uL (4.2-5.4); WHITE BLOOD COUNT 8.08 K/uL (4.8-10.8)
[2016-09-06 07:43] VITALS: BP 162/71; PULSE 61; TEMP 36.7; O2SAT 97
[2016-09-06 07:54] LABS: BUN/CREATININE RATIO 21.3 (10-20); CREATININE 4.5 mg/dl (0.60-1.20); MAGNESIUM 2.1 mg/dl (1.8-2.4); POTASSIUM 4.2 mmol/L (3.5-5.1)
[2016-09-06 07:56] VITALS: BP 150/64; PULSE 63
[2016-09-06] MEDS: FERROUS SULFATE 325 MG TAB PO SCH ×2 (07:58→18:04)
[2016-09-06] MEDS: CLOPIDOGREL BISULFATE 75 MG TAB PO SCH (07:58)
[2016-09-06] MEDS: PANTOprazole SOD 40 MG TAB PO SCH (07:58)
[2016-09-06] MEDS: CHOLECALCIFEROL 1000 INTER.UNIT TAB PO SCH (07:59)
[2016-09-06] MEDS: AMLODIPINE BESYLATE 5 MG TAB PO SCH (07:59)
[2016-09-06] MEDS: CARVEDILOL 12.5 MG TAB PO SCH ×2 (07:59→21:00)
[2016-09-06] MEDS: MULTIVITAMIN TAB PO SCH (08:00)
[2016-09-06] MEDS: CALCIUM 600MG + VIT D 400 IU TAB PO SCH ×2 (08:00→21:00)
[2016-09-06] MEDS: HEPARIN SOD 5000 UNIT/0.5 ML CARP SQ SCH ×2 (08:44→21:04)
[2016-09-06] MEDS: INSULIN ASPART 100 UNITS/ML 3 ML PEN SC SCH ×4 (08:45→21:03)
[2016-09-06] MEDS: INSULIN GLARGINE SOLOSTAR 100 UNITS/ML 3 ML PEN SC SCH ×2 (08:45→21:03)
[2016-09-06 11:26] VITALS: BP 131/68; PULSE 64; TEMP 36.7; O2SAT 97
--- NOTE | 2016-09-06 14:42 | PROGRESS NOTE ---
DATE: 09/06/2016 DATE: 09/06/2016 Sepideh was beginning to look better. Her left upper motor neuron facial paresis is improved. Her speech is much clearer, nearly baseline I suspect. Left arm clumsiness is improving but it is still there and the left leg is still a little clumsy. Apparently she is cleared for transfer to [facility] on Thursday. As per our prior notes, she should remain on aspirin and Plavix for about 3 months. We need to see her in neurologic followup in 3-6 weeks after her discharge from [facility]. At this point then I am going to sign off the case. We will obviously be willing to see her again tomorrow before she leaves if there are some mitigating circumstances, but I do not think we are offering any more in terms of her short term or hospital liaison care at this time.
[2016-09-06 14:52] VITALS: BP 151/66; PULSE 62; TEMP 36.6; O2SAT 95
[2016-09-06 19:27] VITALS: BP 171/71; PULSE 67; TEMP 36.4; O2SAT 98
[2016-09-06] MEDS: ATORVASTATIN 40 MG TAB PO SCH (21:00)
[2016-09-06] MEDS: ASPIRIN 81 MG ECTAB PO SCH (21:00)
--- NOTE | 2016-09-06 21:55 | Progress Note ---
Medicine Progress Note Date & Time of Visit: Sep 06, 2016 at 15:55. Subjective This is a 66yo F with PMH of diastolic CHF, DM II, CKD IV, HTN, HLD and chronic anemia who presents with chest pain and left sided weakness x 2 days. -tolerating PO -ambulating with some issues -BALBIR feels numb and weak. Objective Last 8 Hrs Date Time Temp Pulse Resp B/P (MAP) Pulse Ox O2 Delivery O2 Flow Rate FiO2 09/06/16 14:52 36.6 62 20 151/66 (94) 95 Room Air 09/06/16 12:00 Room Air 09/06/16 11:26 36.7 64 20 131/68 (89) 97 09/06/16 08:00 Room Air 09/06/16 07:56 63 150/64 (92) Physical Exam: GEN: obese, in no acute distress, alert and appropriate, sitting in bedside chair HEENT: NC/AT, normal sclerae, MMM CARDIO: reg rate, S1/2 heard without m/g/r, no edema LUNGS: CTA bilaterally, no crackles, rales or wheezes, good diaphragmatic excursion ABD: soft, non-tender, non-distended but protuberant, no rebound or guarding +BS EXTREMITY: extremities are warm and well-perfused, no LE edema NEURO: Positive [id number], neg Romberg, neg Adonay with hands, CN 2-12 intact , sensation intact throughout, Gait was not assessed as she was a fall risk. MUSC: 5/5 strength on the right with some guarding of her RUE/R shoulder. LUE and LLE have 5/5 strength throughout except finger spread is weak in the L hand compared to the right. Rn Perioperative strength intact bilaterally and is equal. SKIN: warm and dry Laboratory Results: 09/06/16 06:29 09/06/16 06:29 Test 09/01/16 09:59 09/01/16 10:10 09/01/16 10:17 09/01/16 21:58 Total Bilirubin 0.2 mg/dl (0.2-1) Direct Bilirubin < 0.1 mg/dl (0-0.2) Aspartate Amino Transf (AST/SGOT) 19 U/L (15-37) Alanine Aminotransferase (ALT/SGPT) 25 U/L (12-78) Alkaline Phosphatase 70 U/L (45-117) Total Creatine Kinase 82 U/L (26-192) Pro-B-Type Natriuretic Peptide 1340 pg/ml (0-900) Total Protein 6.6 gm/dl (6.4-8.2) Albumin 2.9 gm/dl (3.4-5.0) Lipase 142 U/L (73-393) Bedside Hemoglobin 8.2 g/dl (12.0-16.0) Bedside Hematocrit 24 % (37-47) Bedside Sodium 140 mEq/L (135-144) Bedside Potassium 4.7 mEq/L (3.3-5.0) Bedside Chloride 108 mEq/L (101-112) Bedside Total CO2 21 mEq/l (24-31) Bedside Blood Urea Nitrogen 95 mg/dl (7-18) Bedside Creatinine 4.0 mg/dl (0.6-1.3) Bedside Glucose (other) 127 mg/dl (70-99) Bedside Ionized Calcium (Lucinda) 1.08 mmol/l (1.12-1.32) Immature Granulocyte % (Auto) 0.3 % White Blood Count 8.99 K/uL (4.8-10.8) Red Blood Count 3.08 M/uL (4.2-5.4) Hemoglobin 8.8 g/dL (12.0-16.0) Hematocrit 27.6 % (37-47) Mean Corpuscular Volume 89.6 fL (80-100) Mean Corpuscular Hemoglobin 28.6 pg (25-34) Mean Corpuscular Hemoglobin Concent 31.9 g/dl (32-36) Platelet Count 211 K/uL (130-400) Mean Platelet Volume 10.9 fL (7.4-10.4) Neutrophils (%) (Auto) 73.3 % Lymphocytes (%) (Auto) 16.8 % Monocytes (%) (Auto) 5.5 % Eosinophils (%) (Auto) 3.8 % Basophils (%) (Auto) 0.3 % Neutrophils # (Auto) 6.59 K/uL (1.4-6.5) Lymphocytes # (Auto) 1.51 K/uL (1.2-3.4) Monocytes # (Auto) 0.49 K/uL (0.11-0.59) Eosinophils # (Auto) 0.34 K/uL (0-0.5) Basophils # (Auto) 0.03 K/uL (0-0.2) Immature Granulocyte # (Auto) 0.03 K/uL (0.00-0.02) Red Blood Cell Morphology Unremarkable Creatine Kinase MB 2.2 ng/ml (0.5-3.6) Creatine Kinase MB Ratio (0-3.0) Troponin I < 0.015 ng/ml (0-0.045) Test 09/02/16 05:40 09/03/16 05:39 09/06/16 06:29 09/06/16 19:41 Estimated Average Glucose 134 mg/dl Hemoglobin A1c 6.3 % (4.5-5.6) Phosphorus Level 5.1 mg/dl (2.5-4.9) Triglycerides Level 180 mg/dl (0-150) Cholesterol Level 114 mg/dl (0-200) HDL Cholesterol 27 mg/dl LDL Cholesterol, Calculated 51 mg/dl VLDL Cholesterol, Calculated 36 mg/dl Cholesterol/HDL Ratio 4.2 Vitamin B12 Level 427 pg/mL (211-911) 25-Hydroxy Vitamin D Total 38.1 ng/ml (30-100) Folate > 24.00 ng/mL (>5.38) Red Blood Count 2.98 M/uL (4.2-5.4) Mean Corpuscular Volume 87.9 fL (80-100) Mean Corpuscular Hemoglobin 29.2 pg (25-34) Mean Corpuscular Hemoglobin Concent 33.2 g/dl (32-36) RDW Standard Deviation 46.5 fL (36.4-46.3) RDW Coefficient of Variation 14.6 % (11.5-14.5) Mean Platelet Volume 11.2 fL (7.4-10.4) Anion Gap 10.0 mmol/L (3-11) Est Creatinine Clear Calc Drug Dose 12.1 ml/min Estimated GFR () 11.0 Estimated GFR (Non- 9.5 BUN/Creatinine Ratio 21.3 (10-20) Calcium Level 9.0 mg/dl (8.5-10.1) Magnesium Level 2.1 mg/dl (1.8-2.4) Bedside Glucose 229 mg/dl (70-90) Last 24 Hours Test 09/05/16 16:40 09/05/16 20:45 09/06/16 06:29 09/06/16 07:27 Bedside Glucose 122 mg/dl 230 mg/dl 136 mg/dl White Blood Count 8.08 K/uL Red Blood Count 2.98 M/uL Hemoglobin 8.7 g/dL Hematocrit 26.2 % Mean Corpuscular Volume 87.9 fL Mean Corpuscular Hemoglobin 29.2 pg Mean Corpuscular Hemoglobin Concent 33.2 g/dl RDW Standard Deviation 46.5 fL RDW Coefficient of Variation 14.6 % Platelet Count 191 K/uL Mean Platelet Volume 11.2 fL Sodium Level 140 mmol/L Potassium Level 4.2 mmol/L Chloride Level 108 mmol/L Carbon Dioxide Level 22 mmol/L Anion Gap 10.0 mmol/L Blood Urea Nitrogen 96 mg/dl Creatinine 4.50 mg/dl Est Creatinine Clear Calc Drug Dose 12.1 ml/min Estimated GFR () 11.0 Estimated GFR (Non- 9.5 BUN/Creatinine Ratio 21.3 Random Glucose 117 mg/dl Calcium Level 9.0 mg/dl Magnesium Level 2.1 mg/dl Test 09/06/16 12:02 Bedside Glucose 216 mg/dl Assessment & Plan This is a 66yo F with PMH of diastolic CHF, DM II, CKD IV, HTN, HLD and chronic anemia who presents with chest pain and left sided weakness x 2 days. 1. GARETH in setting of CKD IV: Dialysis fistula placed in L forearm by Dr. Chambers 08/19/16. Plan to start dialysis if needed moving forward. She has a creatinine of 4.5 today with a baseline of 3. Trend has been increasing since admission. Nephro following; no indication for acute HD. Dr. Holder holding Lasix since 09/05. Pt reports PO intake is good at this time. Fluid restric to 1500mls daily with strict I/Os. Daily bmp,<2 gm daily Na diet and low K diet. Apprec continued Nephro recs. 2. R Cerebellar infarction (CVA): based on clinical findings and MRI. Plavix was added to ASA and will cont for 3 months, and then Plavix indef per Neuro. Will require inpatient rehab. No issues with swallowing or dysphagia. Cont Lipitor, ASA and Plavix 3. Atypical chest tightness--resolved and will need stress test down the road. Will delay 1-2 months and then have patient follow-up with Cardiology as outpatient to discuss. 4. Diastolic CHF: chronic, no acute exacerbation at this time. Cont medical management and good BP control efforts. 5. Chronic anemia 2/2 iron deficiency and CKD. Cont iron supplementation and procrit per Nephrology recs. No indication for transfusion at this time. 6. DM II: A1C 6.3 reflecting excellent control; SSI while in-patient. Placed glycemic control consult with pharm. At goal. 7. HTN: controlled, cont home meds for management 8. KUSHAL-nightly CPAP DVT PPx: Heparin Code status: FULL PCP: Dr. Golden Dispo: hold discharge for a few days until kidney function levels out or improves. Likely reconsider dc to rehab on Thursday DO Jose Garcia Hospitalist Consultants: Cardiology-Dr. Wang Neurology-Dr. Izaguirre Nephrology-Dr. Kessler Current Inpatient Medications: Current Inpatient Medications Medications (Trade) Dose Ordered Sig/Aleks Route Start Time Stop Time Status Last Admin Dose Admin Miscellaneous (Iv Fluids Completed) 1 ea PRN PRN N/A 09/01/16 12:15 09/01/17 12:14 Heparin Sodium (Porcine) (Heparin Sq 5000 Unit/0.5ml) 5,000 unit Q12 SQ 09/01/16 21:00 10/01/16 20:59 09/06/16 08:44 5,000 UNIT Acetaminophen (Tylenol Tab) 650 mg Q4H PRN PO 09/01/16 12:15 10/01/16 12:14 09/05/16 20:58 650 MG Ondansetron HCl (Zofran Inj) 4 mg Q6H PRN IV 09/01/16 12:15 10/01/16 12:14 Nitroglycerin (Nitrostat Tab) 0.4 mg UD PRN SL 09/01/16 12:15 10/01/16 12:14 Amlodipine Besylate (Norvasc Tab) 2.5 mg DAILY PO 09/02/16 09:00 10/02/16 08:59 09/06/16 07:59 2.5 MG Aspirin (Ecotrin Tab) 81 mg QPM PO 09/02/16 21:00 10/02/16 20:59 09/05/16 20:35 81 MG Calcium/Vitamin D (Caltrate Plus Tab) 1 tab BID PO 09/01/16 21:00 10/01/16 20:59 09/06/16 08:00 1 TAB Carvedilol (Coreg Tab) 12.5 mg BID PO 09/01/16 21:00 10/01/16 20:59 09/06/16 07:59 12.5 MG Docusate Sodium (coLACE CAP) 100 mg BID PRN PO 09/01/16 12:30 10/01/16 12:29 Meclizine HCl (Antivert Tab) 25 mg TID PRN PO 09/01/16 12:30 10/01/16 12:29 Multivitamins (Multivitamin Tab) 1 tab QAM PO 09/02/16 09:00 10/02/16 08:59 09/06/16 08:00 1 TAB Nystatin (Mycostatin Powder) 1 appln TID PRN EXT 09/01/16 12:30 10/01/16 12:29 09/02/16 20:07 1 APPLN Sumatriptan Succinate (Imitrex Tab) 25 mg UD PRN PO 09/01/16 12:30 10/01/16 12:29 Cholecalciferol (Vitamin D Tab) 5,000 inter.unit QAM PO 09/02/16 09:00 10/02/16 08:59 09/06/16 07:59 5,000 INTER.UNIT Ferrous Sulfate (Feosol Tab) 325 mg BIDM PO 09/01/16 17:00 10/01/16 17:59 09/06/16 07:58 325 MG Pantoprazole Sodium (Protonix Tab) 40 mg QAM PO 09/02/16 09:00 10/02/16 08:59 09/06/16 07:58 40 MG Glucose (Glucose 40% Gel) 15-30 GRAMS 15 GRAMS... UD PRN PO 09/01/16 12:45 10/01/16 12:44 Glucose (Glucose Chew Tab) 4-8 Tablets 4 Tabl... UD PRN PO 09/01/16 12:45 10/01/16 12:44 Dextrose (Dextrose 50% 50ML Syringe) 25-50ML OF 50% DW IV FOR... UD PRN IV 09/01/16 12:45 10/01/16 12:44 Glucagon (Glucagon Inj) 1 mg UD PRN SQ 09/01/16 12:45 10/01/16 12:44 Miscellaneous Information (Consult Glycemic Management Pharmacy) 1 ea UD PRN N/A 09/01/16 13:19 10/01/16 13:18 Miconazole Nitrate (Desenex Powder) 1 appln PRN PRN EXT 09/01/16 15:15 10/01/16 15:14 Insulin Aspart (novoLOG ASPART) SLIDING SCALE If C... ACHS SC 09/02/16 11:00 10/02/16 10:59 09/06/16 13:11 8 UNITS Clopidogrel Bisulfate (plAVix TAB) 75 mg QAM PO 09/03/16 09:00 10/03/16 08:59 09/06/16 07:58 75 MG Miscellaneous Information (Pharmacist Discharge Med Rec Consult) 1 ea UD PRN N/A 09/03/16 08:45 10/03/16 08:44 Atorvastatin Calcium (Lipitor Tab) 40 mg PM PO 09/03/16 21:00 10/03/16 20:59 09/05/16 20:35 40 MG Hydralazine HCl (Apresoline Tab) 25 mg BID PO 09/04/16 09:00 10/04/16 08:59 09/06/16 07:58 25 MG Insulin Glargine (Lantus Solostar Pen) 17 units BID SC 09/05/16 09:00 10/05/16 08:59 09/06/16 08:45 17 UNITS
[2016-09-06] MEDS: ACETAMINOPHEN 325 MG TAB PO PRN (23:31)
[2016-09-07] VITALS (7 sets, daily range): BP systolic 145–197; BP diastolic 57–78; PULSE 60–70; TEMP 36.4–36.8; O2SAT 95–99
[2016-09-07] MEDS: FERROUS SULFATE 325 MG TAB PO SCH ×2 (07:45→17:18)
[2016-09-07] MEDS: CLOPIDOGREL BISULFATE 75 MG TAB PO SCH (07:45)
[2016-09-07] MEDS: CARVEDILOL 12.5 MG TAB PO SCH ×2 (07:47→21:28)
[2016-09-07] MEDS: PANTOprazole SOD 40 MG TAB PO SCH (07:48)
[2016-09-07] MEDS: AMLODIPINE BESYLATE 5 MG TAB PO SCH (07:48)
[2016-09-07] MEDS: CHOLECALCIFEROL 1000 INTER.UNIT TAB PO SCH (07:49)
[2016-09-07] MEDS: MULTIVITAMIN TAB PO SCH (07:51)
[2016-09-07] MEDS: CALCIUM 600MG + VIT D 400 IU TAB PO SCH ×2 (07:53→21:28)
[2016-09-07] MEDS: INSULIN ASPART 100 UNITS/ML 3 ML PEN SC SCH ×4 (08:36→21:00)
[2016-09-07] MEDS: INSULIN GLARGINE SOLOSTAR 100 UNITS/ML 3 ML PEN SC SCH ×2 (08:37→21:30)
[2016-09-07] MEDS: HEPARIN SOD 5000 UNIT/0.5 ML CARP SQ SCH ×2 (08:37→21:30)
[2016-09-07 08:57] LABS: HEMATOCRIT 26.7 % (37-47); MEAN CELL VOLUME 88.7 fL (80-100); MEAN CORPUSCULAR HEMOGLOBIN 29.2 pg (25-34); MEAN PLATELET VOLUME 10.4 fL (7.4-10.4); PLATELET COUNT 222 K/uL (130-400); RED BLOOD COUNT 3.01 M/uL (4.2-5.4); WHITE BLOOD COUNT 8.23 K/uL (4.8-10.8)
[2016-09-07 09:34] LABS: BUN/CREATININE RATIO 23.9 (10-20); CALCIUM 8.9 mg/dl (8.5-10.1); CREATININE 4.3 mg/dl (0.60-1.20); MAGNESIUM 2.1 mg/dl (1.8-2.4); POTASSIUM 3.9 mmol/L (3.5-5.1)
--- NOTE | 2016-09-07 13:17 | Pharmacy Progress Note ---
Glycemic Control Progress Note Date of Service Sep 07, 2016. Scope Glycemic Pharmacist consulted for glycemic control to write orders per [facility] inpatient glycemic control protocol. Objective Accuchecks BSG (last 24hrs): Test 09/06/16 16:10 09/06/16 19:41 09/07/16 07:36 09/07/16 08:14 Bedside Glucose 279 mg/dl (70-90) 229 mg/dl (70-90) 135 mg/dl (70-90) Random Glucose 127 mg/dl (70-99) Test 09/07/16 11:19 Bedside Glucose 215 mg/dl (70-90) HbA1c: Test 09/02/16 05:40 Hemoglobin A1c 6.3 % (4.5-5.6) H Recent Pertinent Medications The patient is currently receiving: * Basal insulin: Lantus 17 units every 12 hours * Correctional Insulin: Novolog Correction per scale ACHS Goal Range: Low 120 mg/dL - High 140 mg/dL Correction Factor: 15 mg/dL/unit * Prandial insulin: Per carb ratio of 1 unit per 6 grams CHO consumed Outpatient Anti-Diabetic Meds Basal Insulin Bolus Insulin Total daily dose ~ 108 units Assessment & Plan ASSESSMENT: * 66 yr old female admitted with chest pain, r/o ACS. Patient is well known to the glycemic service. See note from 09/01 for background. * Recent improvement in A1c from 8.9 % in June 2016 to 6.3 % in August 2016, however, this could be somewhat unreliable d/t anemia, CKD, and altered RBC turnover rate. Regardless, BSGs from June 2016 admission and this admission reflect good glycemic control. Outpatient insulin doses were tapered down after last admission. * Changes needed to insulin regimen: * Fasting BSG = 135 mg/dL; however prandial BSGs all > 200 over the past 24 hours * Pt received a total of 76 units yesterday and I estimate now she could tolerate 90-100 units. * Overall tightening of regimen is warranted. Will revaluate tomorrow. PLAN FOR INPATIENT GLYCEMIC CONTROL: * Basal insulin: Increase * Lantus 22 units SQ BID * Bolus insulin: Tighten * NovoLog per scale ACHS or Q6hrs while NPO * Goal Range: Low 120 mg/dL - High 140 mg/dL * Correction Factor: 15 mg/dL/unit * Nutritional / Prandial insulin per carb ratio of 1 unit per 4 grams CHO consumed DISCHARGE RECOMMENDATIONS: * Adequate outpatient glycemic control evidenced by A1c of 6.3 % (09/02/16) * Recommend continuing current home regimen on discharge * NPH 26 units SQ qAM, 22 units SQ qPM * Regular insulin SQ ACHS per sliding scale * Please note that the plan above was derived based on current level of insulin resistance and hospital stress. These recommendations are appropriate for inpatient admission only. Plan of care upon discharge will need to be reassessed to avoid potential outpatient hypo/hyperglycemia. Thank you.
--- NOTE | 2016-09-07 14:35 | Nephrology Progress Note ---
Nephrology Progress Note Date of Service: Sep 07, 2016. Subjective feels cold. Some orthopnea and SOB at night. Objective Date Time Temp Pulse Resp B/P (MAP) Pulse Ox O2 Delivery O2 Flow Rate FiO2 09/07/16 12:00 Room Air 09/07/16 11:13 36.4 60 20 145/57 (86) 98 09/07/16 08:00 Room Air 09/07/16 07:39 36.5 62 20 178/78 (111) 98 09/07/16 04:21 36.4 64 18 155/68 (97) 98 Room Air 09/07/16 04:07 Room Air 09/07/16 00:06 Room Air 09/07/16 00:06 36.7 70 18 178/61 (100) 95 Room Air 09/06/16 20:16 Room Air 09/06/16 19:27 36.4 67 20 171/71 (104) 98 Room Air 09/06/16 16:00 Room Air 09/06/16 14:52 36.6 62 20 151/66 (94) 95 Room Air Physical Exam: General-[No distress.] Neck-[short obese neck] Lungs-[Clear.] Heart-[S1 and s2] Abdomen-[Obese] Extremities-[Trace edema.] Neuro-[AAox3] Current Inpatient Medications Medications (Trade) Dose Ordered Sig/Aleks Route Start Time Stop Time Status Last Admin Dose Admin Miscellaneous (Iv Fluids Completed) 1 ea PRN PRN N/A 09/01/16 12:15 09/01/17 12:14 Heparin Sodium (Porcine) (Heparin Sq 5000 Unit/0.5ml) 5,000 unit Q12 SQ 09/01/16 21:00 10/01/16 20:59 09/07/16 08:37 5,000 UNIT Acetaminophen (Tylenol Tab) 650 mg Q4H PRN PO 09/01/16 12:15 10/01/16 12:14 09/06/16 23:31 650 MG Ondansetron HCl (Zofran Inj) 4 mg Q6H PRN IV 09/01/16 12:15 10/01/16 12:14 Nitroglycerin (Nitrostat Tab) 0.4 mg UD PRN SL 09/01/16 12:15 10/01/16 12:14 Amlodipine Besylate (Norvasc Tab) 2.5 mg DAILY PO 09/02/16 09:00 10/02/16 08:59 09/07/16 07:48 2.5 MG Aspirin (Ecotrin Tab) 81 mg QPM PO 09/02/16 21:00 10/02/16 20:59 09/06/16 21:00 81 MG Calcium/Vitamin D (Caltrate Plus Tab) 1 tab BID PO 09/01/16 21:00 10/01/16 20:59 09/07/16 07:53 1 TAB Carvedilol (Coreg Tab) 12.5 mg BID PO 09/01/16 21:00 10/01/16 20:59 09/07/16 07:47 12.5 MG Docusate Sodium (coLACE CAP) 100 mg BID PRN PO 09/01/16 12:30 10/01/16 12:29 Meclizine HCl (Antivert Tab) 25 mg TID PRN PO 09/01/16 12:30 10/01/16 12:29 Multivitamins (Multivitamin Tab) 1 tab QAM PO 09/02/16 09:00 10/02/16 08:59 09/07/16 07:51 1 TAB Nystatin (Mycostatin Powder) 1 appln TID PRN EXT 09/01/16 12:30 10/01/16 12:29 09/02/16 20:07 1 APPLN Sumatriptan Succinate (Imitrex Tab) 25 mg UD PRN PO 09/01/16 12:30 10/01/16 12:29 Cholecalciferol (Vitamin D Tab) 5,000 inter.unit QAM PO 09/02/16 09:00 10/02/16 08:59 09/07/16 07:49 5,000 INTER.UNIT Ferrous Sulfate (Feosol Tab) 325 mg BIDM PO 09/01/16 17:00 10/01/16 17:59 09/07/16 07:45 325 MG Pantoprazole Sodium (Protonix Tab) 40 mg QAM PO 09/02/16 09:00 10/02/16 08:59 09/07/16 07:48 40 MG Glucose (Glucose 40% Gel) 15-30 GRAMS 15 GRAMS... UD PRN PO 09/01/16 12:45 10/01/16 12:44 Glucose (Glucose Chew Tab) 4-8 Tablets 4 Tabl... UD PRN PO 09/01/16 12:45 10/01/16 12:44 Dextrose (Dextrose 50% 50ML Syringe) 25-50ML OF 50% DW IV FOR... UD PRN IV 09/01/16 12:45 10/01/16 12:44 Glucagon (Glucagon Inj) 1 mg UD PRN SQ 09/01/16 12:45 10/01/16 12:44 Miscellaneous Information (Consult Glycemic Management Pharmacy) 1 ea UD PRN N/A 09/01/16 13:19 10/01/16 13:18 Miconazole Nitrate (Desenex Powder) 1 appln PRN PRN EXT 09/01/16 15:15 10/01/16 15:14 Insulin Aspart (novoLOG ASPART) SLIDING SCALE If C... ACHS SC 09/02/16 11:00 10/02/16 10:59 09/07/16 13:18 18 UNITS Clopidogrel Bisulfate (plAVix TAB) 75 mg QAM PO 09/03/16 09:00 10/03/16 08:59 09/07/16 07:45 75 MG Miscellaneous Information (Pharmacist Discharge Med Rec Consult) 1 ea UD PRN N/A 09/03/16 08:45 10/03/16 08:44 Atorvastatin Calcium (Lipitor Tab) 40 mg PM PO 09/03/16 21:00 10/03/16 20:59 09/06/16 21:00 40 MG Insulin Glargine (Lantus Solostar Pen) 22 units BID SC 09/07/16 09:00 10/07/16 08:59 09/07/16 08:37 22 UNITS Hydralazine HCl (Apresoline Tab) 50 mg BID PO 09/07/16 21:00 10/04/16 20:59 Last 24 Hours Test 09/06/16 16:10 09/06/16 19:41 09/07/16 07:36 09/07/16 08:14 Bedside Glucose 279 mg/dl 229 mg/dl 135 mg/dl White Blood Count 8.23 K/uL Red Blood Count 3.01 M/uL Hemoglobin 8.8 g/dL Hematocrit 26.7 % Mean Corpuscular Volume 88.7 fL Mean Corpuscular Hemoglobin 29.2 pg Mean Corpuscular Hemoglobin Concent 33.0 g/dl RDW Standard Deviation 47.8 fL RDW Coefficient of Variation 14.8 % Platelet Count 222 K/uL Mean Platelet Volume 10.4 fL Sodium Level 141 mmol/L Potassium Level 3.9 mmol/L Chloride Level 108 mmol/L Carbon Dioxide Level 22 mmol/L Anion Gap 11.0 mmol/L Blood Urea Nitrogen 103 mg/dl Creatinine 4.30 mg/dl Est Creatinine Clear Calc Drug Dose 12.7 ml/min Estimated GFR () 11.6 Estimated GFR (Non- 10.0 BUN/Creatinine Ratio 23.9 Random Glucose 127 mg/dl Calcium Level 8.9 mg/dl Magnesium Level 2.1 mg/dl Test 09/07/16 11:19 Bedside Glucose 215 mg/dl Assessment & Plan 66 y/o F w/ chronic diastolic HF, 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 Found to have R cerebellar acute ischemic stroke. No evidence of myocardial ischemia or infarction. CKD 5 not on dialysis -no indication for acute dialysis today but will follow closely -baseline creatinine mid 3's>above baseline currently but stable for few days now. No improvement even though lasix held for last few days. She needs some lasix--almost all CKD 5 patients need it. This is her new baseline creat. will use lasix 40 daily--was on 40 bid before. -s/p AVF creation 08/19/16 -pls cont strict I/O -daily bmp, fluid limit 1.5L, <2 gm daily Na diet and low K diet recommended Anemia of chronic disease -on outpt procrit; monitor cbc daily. hgb below goal will give 6000 units sub q today
[2016-09-07] MEDS: FUROSEMIDE 40 MG TAB PO SCH (15:04)
--- NOTE | 2016-09-07 16:25 | Progress Note ---
Medicine Progress Note Date & Time of Visit: Sep 07, 2016 at 11:59. Subjective This is a 66yo F with PMH of diastolic CHF, DM II, CKD IV, HTN, HLD and chronic anemia who presents with chest pain and left sided weakness x 2 days. Found to have cerebellar stroke after chest pain workup was unrevealing and L-sided weakness persisted. Started on Plavix and statin, and continued on ASA. Accepted at [facility] for rehab when medically stable from a kidney standpoint. Objective Last 8 Hrs Date Time Temp Pulse Resp B/P (MAP) Pulse Ox O2 Delivery O2 Flow Rate FiO2 09/07/16 11:13 36.4 60 20 145/57 (86) 98 09/07/16 08:00 Room Air 09/07/16 07:39 36.5 62 20 178/78 (111) 98 09/07/16 04:21 36.4 64 18 155/68 (97) 98 Room Air 09/07/16 04:07 Room Air Physical Exam: GEN: obese, in no acute distress, alert and appropriate, sitting in bedside chair HEENT: NC/AT, normal sclerae, MMM, EOMI CARDIO: reg rate, S1/2 heard without m/g/r, no edema LUNGS: CTA bilaterally, no crackles, rales or wheezes, good diaphragmatic excursion ABD: soft, non-tender, non-distended but protuberant, no rebound or guarding +BS EXTREMITY: extremities are warm and well-perfused, no LE edema NEURO: director quality systems strength intact, strength 5/5 throughout, no sensation deficits. MUSC: 5/5 strength on the right with some guarding of her RUE/R shoulder. LUE and LLE have 5/5 strength throughout except finger spread is weak in the L hand compared to the right. Gambling Counsellor strength intact bilaterally and is equal. SKIN: warm and dry Laboratory Results: 09/07/16 08:14 09/07/16 08:14 Test 09/01/16 09:59 09/01/16 10:10 09/01/16 10:17 09/01/16 21:58 Total Bilirubin 0.2 mg/dl (0.2-1) Direct Bilirubin < 0.1 mg/dl (0-0.2) Aspartate Amino Transf (AST/SGOT) 19 U/L (15-37) Alanine Aminotransferase (ALT/SGPT) 25 U/L (12-78) Alkaline Phosphatase 70 U/L (45-117) Total Creatine Kinase 82 U/L (26-192) Pro-B-Type Natriuretic Peptide 1340 pg/ml (0-900) Total Protein 6.6 gm/dl (6.4-8.2) Albumin 2.9 gm/dl (3.4-5.0) Lipase 142 U/L (73-393) Bedside Hemoglobin 8.2 g/dl (12.0-16.0) Bedside Hematocrit 24 % (37-47) Bedside Sodium 140 mEq/L (135-144) Bedside Potassium 4.7 mEq/L (3.3-5.0) Bedside Chloride 108 mEq/L (101-112) Bedside Total CO2 21 mEq/l (24-31) Bedside Blood Urea Nitrogen 95 mg/dl (7-18) Bedside Creatinine 4.0 mg/dl (0.6-1.3) Bedside Glucose (other) 127 mg/dl (70-99) Bedside Ionized Calcium (Lucinda) 1.08 mmol/l (1.12-1.32) Immature Granulocyte % (Auto) 0.3 % White Blood Count 8.99 K/uL (4.8-10.8) Red Blood Count 3.08 M/uL (4.2-5.4) Hemoglobin 8.8 g/dL (12.0-16.0) Hematocrit 27.6 % (37-47) Mean Corpuscular Volume 89.6 fL (80-100) Mean Corpuscular Hemoglobin 28.6 pg (25-34) Mean Corpuscular Hemoglobin Concent 31.9 g/dl (32-36) Platelet Count 211 K/uL (130-400) Mean Platelet Volume 10.9 fL (7.4-10.4) Neutrophils (%) (Auto) 73.3 % Lymphocytes (%) (Auto) 16.8 % Monocytes (%) (Auto) 5.5 % Eosinophils (%) (Auto) 3.8 % Basophils (%) (Auto) 0.3 % Neutrophils # (Auto) 6.59 K/uL (1.4-6.5) Lymphocytes # (Auto) 1.51 K/uL (1.2-3.4) Monocytes # (Auto) 0.49 K/uL (0.11-0.59) Eosinophils # (Auto) 0.34 K/uL (0-0.5) Basophils # (Auto) 0.03 K/uL (0-0.2) Immature Granulocyte # (Auto) 0.03 K/uL (0.00-0.02) Red Blood Cell Morphology Unremarkable Creatine Kinase MB 2.2 ng/ml (0.5-3.6) Creatine Kinase MB Ratio (0-3.0) Troponin I < 0.015 ng/ml (0-0.045) Test 09/02/16 05:40 09/03/16 05:39 09/07/16 08:14 09/07/16 16:02 Estimated Average Glucose 134 mg/dl Hemoglobin A1c 6.3 % (4.5-5.6) Phosphorus Level 5.1 mg/dl (2.5-4.9) Triglycerides Level 180 mg/dl (0-150) Cholesterol Level 114 mg/dl (0-200) HDL Cholesterol 27 mg/dl LDL Cholesterol, Calculated 51 mg/dl VLDL Cholesterol, Calculated 36 mg/dl Cholesterol/HDL Ratio 4.2 Vitamin B12 Level 427 pg/mL (211-911) 25-Hydroxy Vitamin D Total 38.1 ng/ml (30-100) Folate > 24.00 ng/mL (>5.38) Red Blood Count 3.01 M/uL (4.2-5.4) Mean Corpuscular Volume 88.7 fL (80-100) Mean Corpuscular Hemoglobin 29.2 pg (25-34) Mean Corpuscular Hemoglobin Concent 33.0 g/dl (32-36) RDW Standard Deviation 47.8 fL (36.4-46.3) RDW Coefficient of Variation 14.8 % (11.5-14.5) Mean Platelet Volume 10.4 fL (7.4-10.4) Anion Gap 11.0 mmol/L (3-11) Est Creatinine Clear Calc Drug Dose 12.7 ml/min Estimated GFR () 11.6 Estimated GFR (Non- 10.0 BUN/Creatinine Ratio 23.9 (10-20) Calcium Level 8.9 mg/dl (8.5-10.1) Magnesium Level 2.1 mg/dl (1.8-2.4) Bedside Glucose 154 mg/dl (70-90) Last 24 Hours Test 09/06/16 12:02 09/06/16 16:10 09/06/16 19:41 09/07/16 07:36 Bedside Glucose 216 mg/dl 279 mg/dl 229 mg/dl 135 mg/dl Test 09/07/16 08:14 09/07/16 11:19 White Blood Count 8.23 K/uL Red Blood Count 3.01 M/uL Hemoglobin 8.8 g/dL Hematocrit 26.7 % Mean Corpuscular Volume 88.7 fL Mean Corpuscular Hemoglobin 29.2 pg Mean Corpuscular Hemoglobin Concent 33.0 g/dl RDW Standard Deviation 47.8 fL RDW Coefficient of Variation 14.8 % Platelet Count 222 K/uL Mean Platelet Volume 10.4 fL Sodium Level 141 mmol/L Potassium Level 3.9 mmol/L Chloride Level 108 mmol/L Carbon Dioxide Level 22 mmol/L Anion Gap 11.0 mmol/L Blood Urea Nitrogen 103 mg/dl Creatinine 4.30 mg/dl Est Creatinine Clear Calc Drug Dose 12.7 ml/min Estimated GFR () 11.6 Estimated GFR (Non- 10.0 BUN/Creatinine Ratio 23.9 Random Glucose 127 mg/dl Calcium Level 8.9 mg/dl Magnesium Level 2.1 mg/dl Bedside Glucose 215 mg/dl Assessment & Plan This is a 66yo F with PMH of diastolic CHF, DM II, CKD IV, HTN, HLD and chronic anemia who presents with chest pain and left sided weakness x 2 days. Found to have cerebellar stroke after chest pain workup was unrevealing and L-sided weakness persisted. Started on Plavix and statin, and continued on ASA. Accepted at [facility] for rehab when medically stable from a kidney standpoint. 1. GARETH in setting of CKD IV: Dialysis fistula placed in L forearm by Dr. Chambers 08/19/16. Plan to start dialysis if needed moving forward. She has a creatinine of 4.3 today, down from 4.5 yesterday, with a baseline of 3. Nephro following; no indication for acute HD. Dr. Holder holding Lasix since 09/05. Pt reports PO intake is good at this time. Fluid restric to 1500mls daily with strict I/Os. Daily bmp,<2 gm daily Na diet and low K diet. Apprec continued Nephro recs. 2. R Cerebellar infarction (CVA): based on clinical findings and MRI. Plavix was added to ASA and will cont for 3 months, and then Plavix indef per Neuro. Will require inpatient rehab. No issues with swallowing or dysphagia. Cont Lipitor, ASA and Plavix. Continues to improve from a functional standpoint. 3. Atypical chest tightness--resolved and will need stress test down the road. Will delay 1-2 months and then have patient follow-up with Cardiology as outpatient to discuss. 4. Diastolic CHF: chronic, no acute exacerbation at this time. Cont medical management and good BP control efforts. 5. Chronic anemia 2/2 iron deficiency and CKD. Cont iron supplementation and procrit per Nephrology recs. No indication for transfusion at this time. 6. DM II: A1C 6.3 reflecting excellent control; SSI while in-patient. Placed glycemic control consult with pharm. At goal. 7. HTN: controlled, cont home meds for management 8. KUSHAL-nightly CPAP DVT PPx: Heparin Code status: FULL PCP: Dr. Golden Dispo: hold discharge for a few days until kidney function levels out or improves. Likely reconsider dc to rehab on Thursday. NOTE TO CASE MANAGEMENT: Pt and are very concerned about the cost of dialysis. They are in the process of being forced from their home because the landlord is selling. They have custody of their 11 year old daughter and are in a custody atkins with both parents who are in nearby towns. They are strapped financially and would like to discuss options--she has Medicare as well as supplemental insurance. Thank you for any help/guidance you can provide them on the process. Samantha Valdez DO [facility] Hospitalist Consultants: Cardiology-Dr. Wang Neurology-Dr. Izaguirre Nephrology-Dr. Kessler Current Inpatient Medications: Current Inpatient Medications Medications (Trade) Dose Ordered Sig/Aleks Route Start Time Stop Time Status Last Admin Dose Admin Miscellaneous (Iv Fluids Completed) 1 ea PRN PRN N/A 09/01/16 12:15 09/01/17 12:14 Heparin Sodium (Porcine) (Heparin Sq 5000 Unit/0.5ml) 5,000 unit Q12 SQ 09/01/16 21:00 10/01/16 20:59 09/07/16 08:37 5,000 UNIT Acetaminophen (Tylenol Tab) 650 mg Q4H PRN PO 09/01/16 12:15 10/01/16 12:14 09/06/16 23:31 650 MG Ondansetron HCl (Zofran Inj) 4 mg Q6H PRN IV 09/01/16 12:15 10/01/16 12:14 Nitroglycerin (Nitrostat Tab) 0.4 mg UD PRN SL 09/01/16 12:15 10/01/16 12:14 Amlodipine Besylate (Norvasc Tab) 2.5 mg DAILY PO 09/02/16 09:00 10/02/16 08:59 09/07/16 07:48 2.5 MG Aspirin (Ecotrin Tab) 81 mg QPM PO 09/02/16 21:00 10/02/16 20:59 09/06/16 21:00 81 MG Calcium/Vitamin D (Caltrate Plus Tab) 1 tab BID PO 09/01/16 21:00 10/01/16 20:59 09/07/16 07:53 1 TAB Carvedilol (Coreg Tab) 12.5 mg BID PO 09/01/16 21:00 10/01/16 20:59 09/07/16 07:47 12.5 MG Docusate Sodium (coLACE CAP) 100 mg BID PRN PO 09/01/16 12:30 10/01/16 12:29 Meclizine HCl (Antivert Tab) 25 mg TID PRN PO 09/01/16 12:30 10/01/16 12:29 Multivitamins (Multivitamin Tab) 1 tab QAM PO 09/02/16 09:00 10/02/16 08:59 09/07/16 07:51 1 TAB Nystatin (Mycostatin Powder) 1 appln TID PRN EXT 09/01/16 12:30 10/01/16 12:29 09/02/16 20:07 1 APPLN Sumatriptan Succinate (Imitrex Tab) 25 mg UD PRN PO 09/01/16 12:30 10/01/16 12:29 Cholecalciferol (Vitamin D Tab) 5,000 inter.unit QAM PO 09/02/16 09:00 10/02/16 08:59 09/07/16 07:49 5,000 INTER.UNIT Ferrous Sulfate (Feosol Tab) 325 mg BIDM PO 09/01/16 17:00 10/01/16 17:59 09/07/16 07:45 325 MG Pantoprazole Sodium (Protonix Tab) 40 mg QAM PO 09/02/16 09:00 10/02/16 08:59 09/07/16 07:48 40 MG Glucose (Glucose 40% Gel) 15-30 GRAMS 15 GRAMS... UD PRN PO 09/01/16 12:45 10/01/16 12:44 Glucose (Glucose Chew Tab) 4-8 Tablets 4 Tabl... UD PRN PO 09/01/16 12:45 10/01/16 12:44 Dextrose (Dextrose 50% 50ML Syringe) 25-50ML OF 50% DW IV FOR... UD PRN IV 09/01/16 12:45 10/01/16 12:44 Glucagon (Glucagon Inj) 1 mg UD PRN SQ 09/01/16 12:45 10/01/16 12:44 Miscellaneous Information (Consult Glycemic Management Pharmacy) 1 UD PRN N/A 09/01/16 13:19 10/01/16 13:18 Miconazole Nitrate (Desenex Powder) 1 appln PRN PRN EXT 09/01/16 15:15 10/01/16 15:14 Insulin Aspart (novoLOG ASPART) SLIDING SCALE If C... ACHS SC 09/02/16 11:00 10/02/16 10:59 09/07/16 08:36 14 UNITS Clopidogrel Bisulfate (plAVix TAB) 75 mg QAM PO 09/03/16 09:00 10/03/16 08:59 09/07/16 07:45 75 MG Miscellaneous Information (Pharmacist Discharge Med Rec Consult) 1 UD PRN N/A 09/03/16 08:45 10/03/16 08:44 Atorvastatin Calcium (Lipitor Tab) 40 mg PM PO 09/03/16 21:00 10/03/16 20:59 09/06/16 21:00 40 MG Insulin Glargine (Lantus Solostar Pen) 22 units BID SC 09/07/16 09:00 10/07/16 08:59 09/07/16 08:37 22 UNITS Hydralazine HCl (Apresoline Tab) 50 mg BID PO 09/07/16 21:00 10/04/16 20:59
[2016-09-07] MEDS: ASPIRIN 81 MG ECTAB PO SCH (21:28)
[2016-09-07] MEDS: ATORVASTATIN 40 MG TAB PO SCH (21:28)
[2016-09-08 07:46] VITALS: BP 157/63; PULSE 65; TEMP 36.6; O2SAT 98
[2016-09-08] MEDS: FERROUS SULFATE 325 MG TAB PO SCH (08:16)
[2016-09-08] MEDS: CHOLECALCIFEROL 1000 INTER.UNIT TAB PO SCH (08:17)
[2016-09-08] MEDS: AMLODIPINE BESYLATE 5 MG TAB PO SCH (08:17)
[2016-09-08] MEDS: CLOPIDOGREL BISULFATE 75 MG TAB PO SCH (08:17)
[2016-09-08] MEDS: CARVEDILOL 12.5 MG TAB PO SCH (08:17)
[2016-09-08] MEDS: CALCIUM 600MG + VIT D 400 IU TAB PO SCH (08:17)
[2016-09-08] MEDS: MULTIVITAMIN TAB PO SCH (08:17)
[2016-09-08] MEDS: PANTOprazole SOD 40 MG TAB PO SCH (08:17)
[2016-09-08] MEDS: FUROSEMIDE 40 MG TAB PO SCH (08:17)
[2016-09-08] MEDS: INSULIN GLARGINE SOLOSTAR 100 UNITS/ML 3 ML PEN SC SCH (08:27)
[2016-09-08] MEDS: INSULIN ASPART 100 UNITS/ML 3 ML PEN SC SCH ×2 (08:27→13:01)
[2016-09-08] MEDS: HEPARIN SOD 5000 UNIT/0.5 ML CARP SQ SCH (08:27)
[2016-09-08 09:59] LABS: HEMATOCRIT 27.9 % (37-47); MEAN CELL VOLUME 88.6 fL (80-100); MEAN CORPUSCULAR HEMOGLOBIN 28.9 pg (25-34); MEAN PLATELET VOLUME 10.3 fL (7.4-10.4); PLATELET COUNT 254 K/uL (130-400); RED BLOOD COUNT 3.15 M/uL (4.2-5.4)
[2016-09-08 10:17] LABS: BUN/CREATININE RATIO 25.8 (10-20); CALCIUM 8.9 mg/dl (8.5-10.1); POTASSIUM 4.3 mmol/L (3.5-5.1)
[2016-09-08 10:18] LABS: MEAN CORPUSCULAR HGB CONC 32.6 g/dl (32-36)
[2016-09-08] MEDS ORDERED: PLV75 PO (12:26)
[2016-09-08] MEDS ORDERED: APR50 PO (12:27)
[2016-09-08] MEDS ORDERED: LPT40 PO (12:27)
[2016-09-08] MEDS ORDERED: LSX40 PO (12:27)
--- NOTE | 2016-09-08 12:37 | Discharge Instructions ---
Discharge Instructions Date of Service Sep 08, 2016. Admission Reason for Admission: Chest Pain Discharge Discharge Diagnosis / Problem: Acute R cerebellar stroke, CKD Stage V Discharge Goals Goal(s): Prevent Disease Progression Activity Recommendations Activity Limitations: per Instructions/Follow-up section . Instructions / Follow-Up Instructions / Follow-Up Risk Factors for Stroke: You can reduce your chances of stroke by working with your medical provider to adopt a healthy lifestyle. Some specific ways to lower your chance of stroke are: * If you are a smoker, now is the time to stop smoking cigarettes * If you are diabetic, improve the control of your blood sugars * Avoid excessive amounts of alcohol * Control high blood pressure * Lose weight if you are overweight * Be sure to lead an active lifestyle * Eat a healthy diet low in salt, cholesterol and fat You should know about other risk factors for stroke that you are unable to control. These include: * Age 55 years or older * Male gender * Certain racial groups: , or / * Family History of Stroke, Mini stroke or Heart Attack * Sickle Cell Disease Follow Up: It is important for you to keep your follow up appointments with your medical provider. ADDITIONAL PROVIDER INSTRUCTIONS: -Please take all medications as instructed. Note multiple medication changes. Paper scripts were provided for your new medications at discharge. -Your Lasix (furosemide) was decreased to 40mg daily. You will need repeat non- fasting bloodwork in 1 week to monitor. A lab script was provided to you at discharge. The results need to be sent to Dr. Rukhsana Escoto (Nephrology with [facility]) -You have a follow-up appointment scheduled with Dr. Escoto on Sep 24 @2pm. -You will need an outpatient stress test in 1 month. Please contact [facility] Cardiology to set this up. -You will need to follow-up with your primary care physician within one week of discharge from [facility] for follow-up from this hospitalization. It was a pleasure taking care of you! Call if you have any questions or problems. You can reach a [facility] hospitalist on duty at [facility] 24 hours a day by calling [phone]. Take care of yourself. Samantha Valdez, [facility] Hospitalist Current Hospital Diet Patient's current hospital diet: Renal Diet, Diabetes Type 2 Diet Discharge Diet Recommended Diet: Diabetes Type 2 Diet, Renal Diet, Low Potassium Diet (2g K) Fluid Restriction: 1500 ml (6 cups) Pending Studies Studies pending at discharge: no Laboratory Results Hemoglobin A1c Test 09/02/16 05:40 Range/Units Estimated Average Glucose 134 mg/dl Hemoglobin A1c 6.3 H 4.5-5.6 % Lipid Panel Test 09/03/16 05:39 Range/Units Triglycerides Level 180 H 0-150 mg/dl Cholesterol Level 114 0-200 mg/dl HDL Cholesterol 27 mg/dl Cholesterol/HDL Ratio 4.2 LDL Cholesterol, Calculated 51 mg/dl Medical Emergencies . Who to Call and When: Medical Emergencies: Call 911 immediately if you experience any of the following warning signs and symptoms of Stroke: * Sudden numbness or weakness of the face, arm or leg, especially on one side of the body * Sudden confusion, trouble speaking or understanding * Sudden trouble seeing in one or both eyes * Sudden trouble walking, dizziness, loss of balance or coordination * Sudden severe headache with no cause Do not delay calling 911 if you experience any warning signs or symptoms of a stroke. Delay in seeking medical attention may affect what treatments can be given to you. . Non-Emergent Contact Non-Emergency issues call your: Primary Care Provider . . "Provider Documentation" section prepared by Samantha Valdez. . Stroke Core Measures Reason no t-PA for Stroke: Contraindicated Reason no antithrom by day 2: Treatment provided - N/A Reason no antithrom at D/C: Treatment provided - N/A Reason no statin at D/C: Treatment provided - N/A Reason no anticoag w/a fib: Treatment not indicated VTE Core Measure Inpt VTE Proph given/why not?: Unfractionated heparin SQ
--- NOTE | 2016-09-08 12:41 | Discharge Summary ---
Discharge Summary Date of Service Sep 08, 2016. Discharge Summary Admission Date: Sep 01, 2016 at 18:44 Discharge Date: Sep 08, 2016 Discharge Disposition: Rehab Principal Diagnosis: Acute R cerebellar stroke CKD-Stage V Atypical chest pain Diastolic CHF Chronic anemia 2/2 chronic kidney disease and iron deficiency DMII HTN KUSHAL Obesity Procedures: TTE (09/01): * The left ventricle is normal in size. * There is moderate concentric left ventricular hypertrophy. * The left ventricular wall motion is normal. * Left ventricular systolic function is normal. * Ejection Fraction = 65-70%. * Aortic valve sclerosis mild, without significant aortic valvular stenosis. * There is a heavily calcified posterior annulus and mitral apparatus without stenosis or regurgitation. * There is no mitral valve stenosis. * There is trace mitral regurgitation. * There is trace tricuspid regurgitation. Vaccinations: None. Consultations: Cardiology-Dr. Wang Neurology-Dr. Izaguirre Nephrology-Dr. Kessler Pending Studies/Follow-Up: see instructions below Medication Reconciliation New Medications: Atorvastatin (Atorvastatin Calcium) 40 Mg Tab 40 MG PO PM for 30 Days, #30 TAB 3 Refills Clopidogrel Bisulfate (Clopidogrel) 75 Mg Tab 75 MG PO QAM for 30 Days, #30 TAB 3 Refills Furosemide (Furosemide) 40 Mg Tab 40 MG PO QAM for 30 Days, #30 TAB 0 Refills Hydralazine HCl (Hydralazine HCl) 50 Mg Tab 50 MG PO TID for 30 Days, #90 TAB 3 Refills Continued Medications: Acetaminophen Tab (Tylenol) 325 Mg Tab 650 MG PO Q6 PRN for Pain, TAB Amlodipine (Norvasc) 2.5 Mg Tab 2.5 MG PO DAILY, TAB Aspirin (Aspirin Ec) 81 Mg Tab 81 MG PO QPM Calcium/Vitamin D (Os-George 500 Plus D) Tab 1 TAB PO BID, TAB Carvedilol (Coreg) 12.5 Mg Tab 1 TAB PO BID for 90 Days, #180 TAB 1 Refill Cholecalciferol (Vitamin D3) 5,000 Unit Tab 1 TAB PO QAM Docusate Sodium (Docusate Sodium) 100 Mg Cap 1 CAP PO BID PRN for Constipation for 7 Days, #14 CAP Epoetin Oleg (Procrit) 2,000 Units Inj 55196 UNITS SQ UD Every 14 days. Ferrous Sulfate (Ferrous Sulfate) 325 Mg Tab 325 MG PO BID, #180 Insulin Human NPH (Novolin N) 100 Units/Ml Susp 26 UNITS SC QDB Insulin Human NPH (Novolin N) 100 Units/Ml Susp 22 UNITS SC QDD Insulin Human Regular (Novolin R) 100 Units/1 Ml Inj 15 UNITS SC ACHS PRN sliding scale Magnesium Oxide (Mag-Ox) 400 Mg Tab 400 MG PO QAM, TAB Meclizine Hcl (Meclizine Hcl) 25 Mg Tab 25 MG PO TID PRN for Dizziness or Vertigo, #180 Multivitamin (Multivitamin) Tab 1 TAB PO QAM, TAB Nystatin (Topical) (Nystatin) 100,000 Unit/Gm Pow 1 APPLN TOP TID PRN for Affected Skin Folds, #60 Pantoprazole Sodium (Protonix) 20 Mg Tab 20 MG PO QAM, #90 Sumatriptan Succinate (Imitrex) 25 Mg Tab 25 MG PO PRN UD, #18 Discontinued Medications: Furosemide (Lasix) 40 Mg Tab 40 MG PO BID for 30 Days, #60 TAB 2 Refills Hydralazine Hcl (Apresoline) 50 Mg Tab 50 MG PO BID for 30 Days, #60 TAB 3 Refills Simvastatin (Simvastatin) 10 Mg Tab 10 MG PO QPM, #90 Admission Information HPI (per Admitting provider): This is a 66yo F with PMH of diastolic CHF (EF: 60-64%), DM II, CKD IV, HTN, HLD and chronic anemia who presents with chest pain and left sided weakness x 2 days. States that yesterday, she started to experience chest tightness that felt like "an elephant sitting on my chest". Pain was intermittent, non- radiating and exacerbated with exertion, like walking from one room to another in her home. Alleviated with rest. Also states that she started to feel weakness in her L side yesterday but was still able to ambulate by walker as usual. This morning, patient woke up with a similar chest pain as well as worsening L-sided weakness and required her 's help to sit up in bed. Was still able to ambulate by walker in house but then switched to wheelchair before presenting to ED. In ED, chest pain was relieved with nitro. Endorses associated SOB, but states that SOB has been her baseline for the past few months. Of note, had dialysis fistula placed in L arm two weeks ago by Dr. Chambers. Plans to start dialysis in 1.5 months. Denies any dizziness, confusion, diaphoresis, cough, orthopnea, PND , nausea, vomiting or MSK pain. Denies any history of CAD but sees Dr. Wang in clinic for management of diastolic CHF. Physical Exam (per Admitting): General Appearance: WD/WN, no apparent distress, + obese Head: normocephalic, atraumatic Eyes: normal inspection, EOMI (Chronic decreased visual acuity in both eyes. ) ENT: normal ENT inspection Neck: supple, no adenopathy, thyroid normal Respiratory/Chest: chest non-tender, lungs clear, normal breath sounds, no respiratory distress, no accessory muscle use Cardiovascular: regular rate, rhythm, normal peripheral pulses, + systolic murmur Abdomen/GI: normal bowel sounds, non tender, soft, no organomegaly Back: normal inspection, no CVA tenderness Extremities/Musculoskelatal: no calf tenderness, + pedal edema (L>R. ), + pertinent finding (Presence of a healing fisula on L forearm with some associated bruising) Neurologic/Psych: intelligence group supervisor II-XII nml as tested, no motor/sensory deficits ( Normal ROM and 5/5 SAMMY in all 4 extremities.), alert, normal mood/affect, oriented x 3 Skin: normal color, warm/dry, no rash Lymphatic: no adenopathy Hospital Course This is a 66yo F with PMH of diastolic CHF, DM II, CKD IV, HTN, HLD and chronic anemia who presents with chest pain and left sided weakness x 2 days. Found to have cerebellar stroke after chest pain workup was unrevealing and L-sided weakness persisted. Started on Plavix and statin, and continued on ASA. Accepted at [facility] for rehab when medically stable from a kidney standpoint. 1. GARETH in setting of CKD IV: Dialysis fistula placed in L forearm by Dr. Chambers 08/19/16. Plan to start dialysis if needed moving forward. She has a creatinine of 4.3 today, down from 4.5 yesterday, with a baseline of 3. Nephro following; no indication for acute HD. Dr. Holder holding Lasix since 09/05. Pt reports PO intake is good at this time. Fluid restric to 1500mls daily with strict I/Os. Daily bmp,<2 gm daily Na diet and low K diet. Apprec continued Nephro recs. 2. R Cerebellar infarction (CVA): based on clinical findings and MRI. Plavix was added to ASA and will cont for 3 months, and then Plavix indef per Neuro. Will require inpatient rehab. No issues with swallowing or dysphagia. Cont Lipitor, ASA and Plavix. Continues to improve from a functional standpoint. 3. Atypical chest tightness--resolved and will need stress test down the road. Will delay 1-2 months and then have patient follow-up with Cardiology as outpatient to discuss. 4. Diastolic CHF: chronic, no acute exacerbation at this time. Cont medical management and good BP control efforts. 5. Chronic anemia 2/2 iron deficiency and CKD. Cont iron supplementation and procrit per Nephrology recs. No indication for transfusion at this time. 6. DM II: A1C 6.3 reflecting excellent control; SSI while in-patient. Placed glycemic control consult with pharm. At goal. 7. HTN: controlled, cont home meds for management 8. KUSHAL-nightly CPAP On day of discharge, patient was hemodynamically stable and afebrile. She was tolerating PO and mentating at baseline. It was cleared with Nephrology that she has no acute indication for dialysis at this time and that this may be her new baseline. She was sent is stable condition to acute rehab at [facility]. Total time spent on discharge = 60 minutes This includes examination of the patient, discharge planning, medication reconciliation, and communication with other providers. Discharge Instructions Discharge Instructions Date of Service Sep 08, 2016. Admission Reason for Admission: Chest Pain Discharge Discharge Diagnosis / Problem: Acute R cerebellar stroke, CKD Stage V Discharge Goals Goal(s): Prevent Disease Progression Activity Recommendations Activity Limitations: per Instructions/Follow-up section . Instructions / Follow-Up Instructions / Follow-Up Risk Factors for Stroke: You can reduce your chances of stroke by working with your medical provider to adopt a healthy lifestyle. Some specific ways to lower your chance of stroke are: * If you are a smoker, now is the time to stop smoking cigarettes * If you are diabetic, improve the control of your blood sugars * Avoid excessive amounts of alcohol * Control high blood pressure * Lose weight if you are overweight * Be sure to lead an active lifestyle * Eat a healthy diet low in salt, cholesterol and fat You should know about other risk factors for stroke that you are unable to control. These include: * Age 55 years or older * Male gender * Certain racial groups: , or / * Family History of Stroke, Mini stroke or Heart Attack * Sickle Cell Disease Follow Up: It is important for you to keep your follow up appointments with your medical provider. ADDITIONAL PROVIDER INSTRUCTIONS: -Please take all medications as instructed. Note multiple medication changes. Paper scripts were provided for your new medications at discharge. -Your Lasix (furosemide) was decreased to 40mg daily. You will need repeat non- fasting bloodwork in 1 week to monitor. A lab script was provided to you at discharge. The results need to be sent to Dr. Rukhsana Escoto (Nephrology with [facility]) -You have a follow-up appointment scheduled with Dr. Escoto on Sep 24 @2pm. -You will need an outpatient stress test in 1 month. Please contact [facility] Cardiology to set this up. -You will need to follow-up with your primary care physician within one week of discharge from [facility] for follow-up from this hospitalization. It was a pleasure taking care of you! Call if you have any questions or problems. You can reach a [facility] hospitalist on duty at [facility] 24 hours a day by calling [phone]. Take care of yourself. Samantha Valdez, [facility] Hospitalist Current Hospital Diet Patient's current hospital diet: Renal Diet, Diabetes Type 2 Diet Discharge Diet Recommended Diet: Diabetes Type 2 Diet, Renal Diet, Low Potassium Diet (2g K) Fluid Restriction: 1500 ml (6 cups) Pending Studies Studies pending at discharge: no Laboratory Results Hemoglobin A1c Test 09/02/16 05:40 Range/Units Estimated Average Glucose 134 mg/dl Hemoglobin A1c 6.3 H 4.5-5.6 % Lipid Panel Test 09/03/16 05:39 Range/Units Triglycerides Level 180 H 0-150 mg/dl Cholesterol Level 114 0-200 mg/dl HDL Cholesterol 27 mg/dl Cholesterol/HDL Ratio 4.2 LDL Cholesterol, Calculated 51 mg/dl Medical Emergencies . Who to Call and When: Medical Emergencies: Call 911 immediately if you experience any of the following warning signs and symptoms of Stroke: * Sudden numbness or weakness of the face, arm or leg, especially on one side of the body * Sudden confusion, trouble speaking or understanding * Sudden trouble seeing in one or both eyes * Sudden trouble walking, dizziness, loss of balance or coordination * Sudden severe headache with no cause Do not delay calling 911 if you experience any warning signs or symptoms of a stroke. Delay in seeking medical attention may affect what treatments can be given to you. . Non-Emergent Contact Non-Emergency issues call your: Primary Care Provider . . "Provider Documentation" section prepared by Samantha Valdez. . Stroke Core Measures Reason no t-PA for Stroke: Contraindicated Reason no antithrom by day 2: Treatment provided - N/A Reason no antithrom at D/C: Treatment provided - N/A Reason no statin at D/C: Treatment provided - N/A Reason no anticoag w/a fib: Treatment not indicated VTE Core Measure Inpt VTE Proph given/why not?: Unfractionated heparin SQ Additional Copies To Rukhsana Escoto DO; Yanet Golden M.D.
[2016-09-08 13:15] VITALS: BP 157/63; PULSE 65; TEMP 36.6; O2SAT 98
== END 2016-09-08 15:35 | DRG 64 ==
LOC: C.EDB 09:33 → UNDOADMOB 12:03 → C.MED 12:03 → ENRESERV 12:35 → OBSVTOIN 18:44 → INTOOBSV 18:44 → C.MED 09-02 18:44 → OBSVTOIN 09-02 18:44 → C.MED 09-07 19:23 → UNDODISIN 09-08 15:35
PROVIDERS: ADMIT Internal Medicine; ATTEND Hospitalist
DX: I63.8 Other cerebral infarction (principal); N18.6 End stage renal disease; I50.32 Chronic diastolic (congestive) heart failure; I13.2 Hypertensive heart and chronic kidney disease with heart failure and with stage 5 chronic kidney disease, or end stage renal disease; I69.354 Hemiplegia and hemiparesis following cerebral infarction affecting left non-dominant side; N17.9 Acute kidney failure, unspecified; R07.2 Precordial pain; E11.21 Type 2 diabetes mellitus with diabetic nephropathy; E11.22 Type 2 diabetes mellitus with diabetic chronic kidney disease; D63.1 Anemia in chronic kidney disease; D50.9 Iron deficiency anemia, unspecified; K21.9 Gastro-esophageal reflux disease without esophagitis; E78.5 Hyperlipidemia, unspecified; G47.33 Obstructive sleep apnea (adult) (pediatric); E66.9 Obesity, unspecified; Z79.82 Long term (current) use of aspirin; Z79.899 Other long term (current) drug therapy; Z83.3 Family history of diabetes mellitus

== ENCOUNTER → 2016-10-24 | Day surgery (SDC) | payer OTHER ==
[~2016-10-24] MED LIST changes: +AMLO2.5T PO; +APR50 PO; +CARV12.52 PO; -CARV6.252 PO; +CEFAZOLIN 2000 MG/60 ML D5W 60 ML IV SCH; +D5W AND 1/4NSS 1,000 ML IV SCH; +EPGI2M SQ; +FENTANYL CITRATE INJ 50 MCG/1 ML 2 ML VIAL ONE; -FURO40TA3 PO; -HYDR-4717 PO; -INSULIN REG SC; +LPT40 PO; +LSX40 PO; +MIDAZOLAM HCL 1 MG/ML 2ML VIAL ONE; -NRV5 PO; +NVLNI SC; +NVLRPUC SC; +PLV75 PO; -SIMV-150 PO; -TRAM-10 PO; -ZOLP5TAB6 PO; -insulin N SQ
--- NOTE | 2016-10-24 06:03 | History and Physical ---
History & Physical Date of Service Oct 24, 2016. History & Physical CC: End stage renal disease HPI: Mrs. Urrutia is in chronic kidney disease, stage V, and will require hemodialysis at this time. She had a left upper arm fistula created which still can not be used by the dialysis unit. She is admitted for a permcath placement. Patient denies any complaints at this time including headaches, fevers, chills, dizziness, chest pain, shortness breath, abdominal pain, nausea , vomiting, diarrhea, constipation, dysuria, hematuria, rest pain, claudication , nonhealing wounds or ulcers, or other complaints. HER ALLERGIES INCLUDE ACTOS, GG/CODEINE, MORPHINE SULFATE. Her home medications are reconciled in the chart and include the following: Amlodipine, aspirin, calcium gluconate, carvedilol, cholecalciferol, Colace, Feosol, furosemide, hydralazine, regular insulin, magnesium oxide, meclizine, multivitamin, Novolin N, nystatin, pantoprazole, simvastatin, sumatriptan, Tylenol, and zolpidem. 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 Her surgical history is positive for abdominal hysterectomy, section, breast biopsy, cholecystectomy, and right shoulder replacement. Her family history is positive for stomach cancer in her father, heart attack and kidney disease in her brother, hypertension and type 2 diabetes in her mother. Social history is negative for tobacco, alcohol, or drug use. Review of systems is negative for fatigue, fevers, sweats, weight loss, exercise intolerance, abnormal moles or rashes, vision changes or photophobia, ear pain, sinus problems, sore throat, cough, shortness of breath, hemoptysis, wheezing, chest pain, palpitations, or syncope. She does have trace edema of her lower extremities. She denies abdominal pain, nausea, vomiting, diarrhea, constipation, muscle weakness, headaches, dizziness, numbness, or seizures. She does admit inability to utilize her right shoulder since her right shoulder replacement, which was performed due to a severe dislocation and chronic shoulder pain. On physical exam, her vital signs today are as follows: Blood pressure 152/66 in the right arm, 156/62 in the left, heart rate of 71, oxygen saturation 97% on room air. Patient is 152 cm tall and weighs 94.2 kg. Constitutional: In general, patient is a chronically ill-appearing, middle-aged female, in no acute distress. She ambulates slowly. She is active, alert, and oriented x4 with normal recent and remote memory. Head is normocephalic and atraumatic. Eyes are EOMI. ENMT exam demonstrates no hearing loss, rhinorrhea, or pharyngeal erythema. Neck is supple, nontender with a midline trachea without masses or crepitus. Her lung exam demonstrates decreased breath sounds throughout, but clear. Cardiovascular exam demonstrates a nondisplaced apical impulse with a regular rate and rhythm, without any murmurs. Her peripheral pulses are full and equal. Specifically, there are normal carotid, brachial, radial, and femoral pulses. Her lower extremity distal pulses are +1. She has brisk capillary refill and no signs of distal ischemia. Abdomen is soft and nontender with normoactive bowel sounds in all 4 quadrants. No guarding or rebound. There is no flank or CVA tenderness. Musculoskeletal exam demonstrates normal tone and strength for age, although she does have decreased range of motion of her right shoulder. Good thrill in michell fistula. Neurologically, the patient has grossly intact cranial nerves and grossly intact sensation. ASSESSMENT: End-stage renal disease, not yet on hemodialysis. PLAN: Patient is admitted for a permcath insertion. I have discussed the risks options and benefits of the procedure with the patient. The patient understands the risks options and benefits and agrees to the procedure.
[2016-10-24 06:55] VITALS: BP 135/54; PULSE 71; TEMP 36.9; O2SAT 100
--- NOTE | 2016-10-24 07:40 | Progress Note ---
Progress Note Date of Service Oct 24, 2016. Progress Note Case cancelled. Dialysis will try the fistula first. Patient understands and agrees.
== END | disposition home or self-care (01) ==
LOC: C.ACU 06:17
PROVIDERS: ATTEND Surgery Vascular Surgery
DX: N18.6 End stage renal disease (principal); I50.32 Chronic diastolic (congestive) heart failure; E11.22 Type 2 diabetes mellitus with diabetic chronic kidney disease; I13.2 Hypertensive heart and chronic kidney disease with heart failure and with stage 5 chronic kidney disease, or end stage renal disease; E78.5 Hyperlipidemia, unspecified; D63.1 Anemia in chronic kidney disease; E66.01 Morbid (severe) obesity due to excess calories; G47.33 Obstructive sleep apnea (adult) (pediatric); Z90.710 Acquired absence of both cervix and uterus; J84.9 Interstitial pulmonary disease, unspecified; Z84.1 Family history of disorders of kidney and ureter; Z82.49 Family history of ischemic heart disease and other diseases of the circulatory system; Z79.899 Other long term (current) drug therapy; Z79.4 Long term (current) use of insulin; Z79.82 Long term (current) use of aspirin; Z80.0 Family history of malignant neoplasm of digestive organs; Z53.8 Procedure and treatment not carried out for other reasons

== ENCOUNTER 2017-01-07 20:08 | Emergency (ER) | payer OTHER ==
[~2017-01-07] VITALS: Ht 152.4 cm; Wt 89.9 kg
[~2017-01-07 20:08] MED LIST changes: -ACET325T96 PO; -CEFAZOLIN 2000 MG/60 ML D5W 60 ML IV SCH; -D5W AND 1/4NSS 1,000 ML IV SCH; -FENTANYL CITRATE INJ 50 MCG/1 ML 2 ML VIAL ONE; +FERR1TAB62 PO; -FERR325T PO; -MECL1TAB42 PO; -MIDAZOLAM HCL 1 MG/ML 2ML VIAL ONE; -NYST100033 TOP; -PANT20TA PO; -SUMA25TA12 PO
[2017-01-07 20:21] VITALS: TEMP 36.7; Ht 152.4 cm; Wt 89.9 kg
[2017-01-07] MEDS ORDERED: ACET325T96 PO (20:28)
[2017-01-07] MEDS ORDERED: PANT20TA2 PO (20:28)
[2017-01-07] MEDS ORDERED: NYST100033 TOP (20:28)
[2017-01-07] MEDS ORDERED: MECL1TAB42 PO (20:28)
[2017-01-07] MEDS ORDERED: SUMA25TA12 PO (20:28)
[2017-01-07] MEDS ORDERED: RANI150T2 PO (21:31)
[2017-01-07] MEDS ORDERED: FLX10 PO (21:31)
[2017-01-07] MEDS ORDERED: ULT50 PO (21:31)
--- NOTE | 2017-01-07 21:38 | EMERGENCY ROOM VISIT NOTE ---
History Report prepared by Kwame: Riky Romeo Under the Supervision of: Dr. Amy Nuñez M.D. First contact with patient: 21:15 Chief Complaint: CONFUSION Stated Complaint: CONFUSION, AMS Nursing Triage Summary: Pt brought BLS from home, pt c/o feeling "just not right" and confused since after dialysis at 16:00 today. EMS report pt having difficulty walking and hx of stroke. VSS, [place] stroke scale negative. Pt denies chest pain, SOB, h/a, dizziness. History of Present Illness The patient is a 66 year old diabetic female who presents to the Emergency Room via BLS with persistent confusion that started earlier this afternoon. Per the patient's , the patient was brought home from dialysis around 5 hours ago , and the patient was complaining of left arm pain, but was having a hard time describing the pain. She was noted to have difficulty walking into the house and was afraid of falling, and seemed a bit incoherent. The patient states that her "arms and legs are not working well", and that she was completely fine before the dialysis. The patient states that her head only hurts a little bit, and denies any shortness of breath, chest pain, vomiting, or diarrhea today. She does state however that she does not know why she is here right now. Per the patient's , the patient has a history of a stroke, which has affected her left side, but she states that her weakness currently is a bit worse than normal. She notes no history of liver issues. The patient says that she takes Aspirin daily. Source of History: patient, family Onset: Earlier this afternoon Position: other (global - confusion) Quality: other (a bit incoherent) Timing: other (persistent) Associated Symptoms: + headache (mild), + weakness, No chest pain, No SOB, No vomiting, No diarrhea Note: Associated symptoms: Left arm pain. Arms and legs not working well. Hard time walking. Review of Systems See HPI for pertinent positives & negatives. A total of 10 systems reviewed and were otherwise negative. Past Medical & Surgical Medical Problems: (1) Anxiety (2) Chronic anemia (3) CKD (chronic kidney disease), stage IV (4) Depression (5) Diabetes mellitus, type 2 (6) Diastolic CHF (7) GERD (gastroesophageal reflux disease) (8) Hx of migraines (9) Hyperlipidemia (10) Hypertension (11) Interstitial lung disease (12) KUSHAL (obstructive sleep apnea) (13) Weakness Surgical Problems: (1) Hx of shoulder surgery (2) Hx of total knee replacement Family History Cancer FATHER (? gastric primary) Dementia MOTHER Diabetes mellitus MOTHER BROTHER BROTHER Kidney disease MOTHER Myocardial infarction BROTHER BROTHER Social History Smoking Status: Never Smoker Alcohol Use: none Drug Use: none Marital Status: Housing Status: lives with family Current/Historical Medications Scheduled Aflibercept (Eylea), 2 MG INJ PRN Amlodipine (Norvasc), 2.5 MG PO DAILY Aspirin (Aspirin Ec), 81 MG PO QPM Atorvastatin (Lipitor), 40 MG PO DAILY Calcium Acetate (Phosphate Bin (Phoslo 667 Mg), 667 MG PO TIDM Calcium/Vitamin D (Os-George 500 Plus D), 1 TAB PO BID Carvedilol (Carvedilol), 12.5 MG PO BID Cholecalciferol (Vitamin D), 5,000 UNITS PO DAILY Clopidogrel (Plavix), 75 MG PO DAILY Cyclobenzaprine HCl (Cyclobenzaprine HCl), 10 MG PO PRN UD Hydralazine Hcl (Apresoline), 50 MG PO TID Insulin Human NPH (Novolin N), 24 UNITS SC QAM Insulin Human NPH (Novolin N), 20 UNITS SC QPM Insulin Human Regular (Novolin R), 15-20 UNITS SC ACHS Lidocaine Hcl (Local Anesth.) (Lidocaine Hcl), 6 MG INJ UD Magnesium Oxide (Mag-Ox), 400 MG PO QAM Nitroglycerin (Nitrostat), 0.4 MG UT PRN Pantoprazole Sodium (Protonix), 20 MG PO QAM Ranitidine HCl (Ranitidine HCl), 150 MG PO DAILY Sumatriptan Succinate (Imitrex), 25 MG PO PRN UD Vitamin B Cmplx/Vitc/Folic Ac (Nephrocaps), 1 CAP PO DAILY Scheduled PRN Acetaminophen Tab (Tylenol), 650 MG PO Q6 PRN for Pain Meclizine Hcl (Meclizine Hcl), 25 MG PO TID PRN for Dizziness or Vertigo Nystatin (Nystatin Cream), 1 APPLN TOP BID PRN for Nystatin (Topical) (Nystatin), 1 APPLN TOP TID PRN for Affected Skin Folds Tramadol HCl (Tramadol HCl), 100 MG PO BID PRN for Pain Allergies Coded Allergies: Codeine (Verified Allergy, Intermediate, hives, 10/24/16) Pioglitazone (Unverified Allergy, Intermediate, Rash/Fluid retention, 10/24) RETAINS FLUID Morphine (Verified Allergy, Mild, 10/24/16) Physical Exam Vital Signs Date Time Temp Pulse Resp B/P (MAP) Pulse Ox O2 Delivery O2 Flow Rate FiO2 01/08/17 00:03 69 20 159/84 96 01/07/17 22:25 67 20 178/58 96 Room Air 01/07/17 21:13 66 20 95 Room Air 01/07/17 20:54 67 01/07/17 20:21 36.7 72 20 155/57 100 Room Air Physical Exam Vital signs reviewed. General: Obese, chronically ill-appearing 66 year old female, in no significant distress. HEENT: No scleral icterus, PERRLA, neck supple. Atraumatic. Cardiovascular: Regular rate and rhythm, no extra sounds. Pulmonary: Clear to auscultation bilaterally, normal work of breathing. Abdomen: Soft, nontender, nondistended, positive bowel sounds. Musculoskeletal: Atraumatic, no peripheral edema. Fistula in left upper extremity. Neurologic: Patient awake alert and oriented x 3, full strength in all 4 extremities. Cranial nerves 2 through 12 grossly intact. Skin: Warm, dry, no rash Medical Decision & Procedures ER Provider Diagnostic Interpretation: Radiology results as stated below per my review and radiologist interpretation: HEAD WITHOUT CONTRAST (CT) CLINICAL HISTORY: 66 years-old Female with AMS, weakness. Acute altered mental status with weakness TECHNIQUE: Multiple axial CT images of the head were obtained without contrast. A dose lowering technique was utilized adhering to the principles of ALARA. CT DOSE: 537.48 mGy.cm COMPARISON: CT head 09/02/2016, MRI brain 09/02/2016. FINDINGS: No acute intracranial hemorrhage, midline shift, mass, large territorial ischemia or abnormal extra-axial collection. Mild atrophy with chronic microvascular ischemic changes. Encephalomalacia related to remote infarction of the right occipital lobe redemonstrated. The calvarium is intact. The mastoid air cells, and middle ear cavities are clear. Moderate mucosal thickening of the sphenoid sinuses. IMPRESSION: Chronic changes without acute intracranial abnormal. The above report was generated using voice recognition software. It may contain grammatical, syntax or spelling errors. Electronically signed by: Steven Ramos M.D. 01/07/2017 10:15 PM Dictated Date/Time: 01/07/2017 10:12 PM CHEST ONE VIEW PORTABLE HISTORY: 66 years-old Female AMS acute altered mental status COMPARISON: Chest radiograph 09/01/2016 TECHNIQUE: Portable upright AP view of the chest FINDINGS: Moderate enlargement of the cardiac silhouette. There is atherosclerosis of the aorta. No pneumothorax, pleural effusion, focal airspace consolidation or overt pulmonary edema. Right shoulder arthroplasty noted. Degenerative changes of the shoulders and spine are seen. IMPRESSION: Cardiomegaly without overt pulmonary edema. The above report was generated using voice recognition software. It may contain grammatical, syntax or spelling errors. Electronically signed by: Steven Ramos M.D. 01/07/2017 10:25 PM Dictated Date/Time: 01/07/2017 10:25 PM Laboratory Results 01/07/17 20:30 Red Blood Count 2.83, Mean Corpuscular Volume 92.2, Mean Corpuscular Hemoglobin 29.7, Mean Corpuscular Hemoglobin Concent 32.2, Mean Platelet Volume 9.2, Neutrophils (%) (Auto) 79.4, Lymphocytes (%) (Auto) 11.0, Monocytes (%) (Auto) 6.2, Eosinophils (%) (Auto) 2.6, Basophils (%) (Auto) 0.1, Neutrophils # (Auto) 7.83, Lymphocytes # (Auto) 1.09, Monocytes # (Auto) 0.61, Eosinophils # (Auto) 0.26, Basophils # (Auto) 0.01 01/07/17 20:30 Test 01/07/17 20:30 01/07/17 21:25 01/07/17 22:03 White Blood Count 9.87 K/uL (4.8-10.8) Red Blood Count 2.83 M/uL (4.2-5.4) Hemoglobin 8.4 g/dL (12.0-16.0) Hematocrit 26.1 % (37-47) Mean Corpuscular Volume 92.2 fL (80-100) Mean Corpuscular Hemoglobin 29.7 pg (25-34) Mean Corpuscular Hemoglobin Concent 32.2 g/dl (32-36) Platelet Count 293 K/uL (130-400) Mean Platelet Volume 9.2 fL (7.4-10.4) Neutrophils (%) (Auto) 79.4 % Lymphocytes (%) (Auto) 11.0 % Monocytes (%) (Auto) 6.2 % Eosinophils (%) (Auto) 2.6 % Basophils (%) (Auto) 0.1 % Neutrophils # (Auto) 7.83 K/uL (1.4-6.5) Lymphocytes # (Auto) 1.09 K/uL (1.2-3.4) Monocytes # (Auto) 0.61 K/uL (0.11-0.59) Eosinophils # (Auto) 0.26 K/uL (0-0.5) Basophils # (Auto) 0.01 K/uL (0-0.2) RDW Standard Deviation 52.5 fL (36.4-46.3) RDW Coefficient of Variation 15.7 % (11.5-14.5) Immature Granulocyte % (Auto) 0.7 % Immature Granulocyte # (Auto) 0.07 K/uL (0.00-0.02) Polychromasia 1+ Anion Gap 7.0 mmol/L (3-11) Est Creatinine Clear Calc Drug Dose 23.3 ml/min Estimated GFR () 24.2 Estimated GFR (Non- 20.8 BUN/Creatinine Ratio 7.0 (10-20) Calcium Level 9.2 mg/dl (8.5-10.1) Magnesium Level 2.0 mg/dl (1.8-2.4) Total Bilirubin 0.5 mg/dl (0.2-1) Direct Bilirubin 0.2 mg/dl (0-0.2) Aspartate Amino Transf (AST/SGOT) 19 U/L (15-37) Alanine Aminotransferase (ALT/SGPT) 24 U/L (12-78) Alkaline Phosphatase 84 U/L (45-117) Total Creatine Kinase 63 U/L (26-192) Creatine Kinase MB 1.7 ng/ml (0.5-3.6) Creatine Kinase MB Ratio 2.7 (0-3.0) Total Protein 7.2 gm/dl (6.4-8.2) Albumin 3.2 gm/dl (3.4-5.0) Thyroid Stimulating Hormone (TSH) 1.530 uIu/ml (0.300-4.500) Bedside Glucose 129 mg/dl (70-90) Bedside Troponin I < 0.030 ng/ml (0-0.045) Laboratory results per my review. Medications Administered Medications (Trade) Dose Ordered Sig/Aleks Route Start Time Stop Time Status Last Admin Dose Admin Sodium Chloride 250 ml @ 999 mls/hr Q16M STAT IV 01/07/17 22:37 01/07/17 22:52 DC 01/07/17 23:09 999 MLS/HR ECG Indication: altered mental status Rate (beats per minute): 70 Rhythm: normal sinus Findings: no acute ischemic change, other (previous inferior and anterior infarct) ED Course 2129: Past medical records reviewed. The patient was evaluated in room C1B. A complete history and physical examination was performed. 2236: Ordered NSS 250 ml @ 999 mls/hr IV. 2344: Upon reevaluation, the patient appeared to have improvement of her symptoms. I discussed findings with her and her family. They verbalized agreement of the treatment plan. The patient was discharged home. Medical Decision Differential diagnosis: Etiologies such as metabolic, infection, hypo/hyperglycemia, electrolyte abnormalities, cardiac sources, intracerebral event, toxicologic, neurologic, as well as others were entertained. This pt was evaluated and appeared to be in no distress. IV access was obtained and lab work was drawn. Lab work is fairly unrevealing. Pt VSS, EKG reveals previous inferior and anterior infarcts, no acute ischemia. Pt was given 250 ml bolus of NSS. She passed and ambulatory trial with minimal assist. Pt has a walker at home. She was d/c to f/u with her PCP or parquetry floor layer KACI if symptoms do not improve. She will return to the ED for worsening of symptoms or any medical concerns. Medication Reconcilliation Current Medication List: was personally reviewed by me Blood Pressure Screening Patient's blood pressure: Elevated blood pressure Blood pressure disposition: Referred to PCP Impression Primary Impression: Weakness Scribe Attestation The scribe's documentation has been prepared under my direction and personally reviewed by me in its entirety. I confirm that the note above accurately reflects all work, treatment, procedures, and medical decision making performed by me. Departure Information Dispostion Home / Self-Care Referrals Yanet Golden M.D. (PCP) Forms HOME CARE DOCUMENTATION FORM, IMPORTANT VISIT INFORMATION, WORK / SCHOOL INSTRUCTIONS Patient Instructions My [facility] Additional Instructions Diagnosis: Weakness Continue your medications as prescribed. Walk with your walker. Follow-up with your doctor as soon as possible. Return to the emergency department for worsening of symptoms or any medical concerns.
[2017-01-07 21:43] LABS: BASO % 0.1 %; BASO ABS # 0.01 K/uL (0-0.2); EOS % 2.6 %; HEMATOCRIT 26.1 % (37-47); IG% 0.7 %; LYMPH ABS # 1.09 K/uL (1.2-3.4); MEAN CELL VOLUME 92.2 fL (80-100); MEAN CORPUSCULAR HEMOGLOBIN 29.7 pg (25-34); MEAN CORPUSCULAR HGB CONC 32.2 g/dl (32-36); MEAN PLATELET VOLUME 9.2 fL (7.4-10.4); MONO % 6.2 %; NEUT % 79.4 %; PLATELET COUNT 293 K/uL (130-400); RED BLOOD COUNT 2.83 M/uL (4.2-5.4); WHITE BLOOD COUNT 9.87 K/uL (4.8-10.8)
[2017-01-07] MEDS ORDERED: NYSCR30 TOP (21:47)
[2017-01-07] MEDS ORDERED: CRG125 PO (21:47)
[2017-01-07] MEDS ORDERED: HYDR-4717 PO (21:47)
[2017-01-07] MEDS ORDERED: EPGI10M SQ (21:47)
[2017-01-07] MEDS ORDERED: CALC667C PO (21:47)
[2017-01-07] MEDS ORDERED: NTRGSL/4 UT (21:47)
[2017-01-07] MEDS ORDERED: [UNRECOGNIZED DRUG - CODE] INJ (21:47)
[2017-01-07] MEDS ORDERED: B-CO1CAP17 PO (21:47)
[2017-01-07] MEDS ORDERED: AFLI2INJ INJ (21:47)
[2017-01-07] MEDS ORDERED: CHOL1TAB42 PO (21:47)
[2017-01-07] MEDS ORDERED: CLOP1TAB15 PO (21:47)
[2017-01-07] MEDS ORDERED: ATOR-24 PO (21:47)
[2017-01-07 21:51] LABS: CALCIUM 9.2 mg/dl (8.5-10.1); CREATININE 2.34 mg/dl (0.60-1.20); POTASSIUM 3.5 mmol/L (3.5-5.1)
[2017-01-07 22:02] LABS: CKMB/CK RATIO 2.7 (0-3.0); THYROID STIMULATING HORMONE 1.53 uIu/ml (0.300-4.500)
--- NOTE | 2017-01-07 22:17 | DIAGNOSTIC IMAGING REPORT ---
HEAD WITHOUT CONTRAST (CT) CLINICAL HISTORY: 66 years-old Female with AMS, weakness. Acute altered mental status with weakness TECHNIQUE: Multiple axial CT images of the head were obtained without contrast. A dose lowering technique was utilized adhering to the principles of ALARA. CT DOSE: 537.48 mGy.cm COMPARISON: CT head 09/02/2016, MRI brain 09/02/2016. FINDINGS: No acute intracranial hemorrhage, midline shift, mass, large territorial ischemia or abnormal extra-axial collection. Mild atrophy with chronic microvascular ischemic changes. Encephalomalacia related to remote infarction of the right occipital lobe redemonstrated. The calvarium is intact. The mastoid air cells, and middle ear cavities are clear. Moderate mucosal thickening of the sphenoid sinuses. IMPRESSION: Chronic changes without acute intracranial abnormal. The above report was generated using voice recognition software. It may contain grammatical, syntax or spelling errors. Electronically signed by: Steven Ramos M.D. 01/07/2017 10:15 PM Dictated Date/Time: 01/07/2017 10:12 PM
[2017-01-07 22:27] LABS: COMPLETE YES; POLYCHROMASIA 1+
--- NOTE | 2017-01-07 22:27 | DIAGNOSTIC IMAGING REPORT ---
CHEST ONE VIEW PORTABLE HISTORY: 66 years-old Female AMS acute altered mental status COMPARISON: Chest radiograph 09/01/2016 TECHNIQUE: Portable upright AP view of the chest FINDINGS: Moderate enlargement of the cardiac silhouette. There is atherosclerosis of the aorta. No pneumothorax, pleural effusion, focal airspace consolidation or overt pulmonary edema. Right shoulder arthroplasty noted. Degenerative changes of the shoulders and spine are seen. IMPRESSION: Cardiomegaly without overt pulmonary edema. The above report was generated using voice recognition software. It may contain grammatical, syntax or spelling errors. Electronically signed by: Steven Ramos M.D. 01/07/2017 10:25 PM Dictated Date/Time: 01/07/2017 10:25 PM
[2017-01-07] MEDS ORDERED: SODIUM CHLORIDE 0.9% 250ML 250 ML IV STA (22:37)
[2017-01-08 00:03] VITALS: BP 159/84; PULSE 69; O2SAT 96
== END 2017-01-08 00:03 | disposition home or self-care (01) ==
LOC: EDBD 20:12 → C.EDC 20:14
DX: R53.1 Weakness (principal); I12.9 Hypertensive chronic kidney disease with stage 1 through stage 4 chronic kidney disease, or unspecified chronic kidney disease; N18.4 Chronic kidney disease, stage 4 (severe); E11.9 Type 2 diabetes mellitus without complications; E78.5 Hyperlipidemia, unspecified; I50.32 Chronic diastolic (congestive) heart failure; K21.9 Gastro-esophageal reflux disease without esophagitis; D64.9 Anemia, unspecified; F41.9 Anxiety disorder, unspecified; F32.9 Major depressive disorder, single episode, unspecified; G47.33 Obstructive sleep apnea (adult) (pediatric); Z96.659 Presence of unspecified artificial knee joint; Z98.890 Other specified postprocedural states; Z79.82 Long term (current) use of aspirin; Z79.4 Long term (current) use of insulin; Z79.899 Other long term (current) drug therapy; Z88.5 Allergy status to narcotic agent; Z88.8 Allergy status to other drugs, medicaments and biological substances; Z80.9 Family history of malignant neoplasm, unspecified; Z83.3 Family history of diabetes mellitus; Z84.1 Family history of disorders of kidney and ureter; Z82.49 Family history of ischemic heart disease and other diseases of the circulatory system

== ENCOUNTER → 2017-02-23 | Day surgery (SDC) | payer OTHER ==
[2017-02-19 09:15] VITALS: Ht 152.4 cm; Wt 91.8 kg
[~2017-02-23] VITALS: Ht 152.4 cm; Wt 91.8 kg
[~2017-02-23] MED LIST changes: +500ML BSSPLUS 0.5ML EPI1:1000 IRRIG ONE; +ACET325T96 PO; +ACETAMINOPHEN 325 MG TAB PO PRN; +AMLO-114 PO; -AMLO2.5T PO; -APR50 PO; +ATOR-24 PO; +ATROPINE SULFATE 0.1 MG/ML 5ML SYR IV PRN; +ATROPINE SULFATE 1% OP OINT PER APPLICATION CHARGE ONE; +ATROPINE SULFATE 1% OP SOLN 2 ML BTL ONE; +B-COCAP28 PO; +BSS FLUSH ONE; +BUPIVACAINE HCL 0.75% 10 ML AMP/VIAL ONE; -CALC500C70 PO; +CALC667C PO; -CARV12.52 PO; +CEFAZOLIN SOD 1 GM VIAL ONE; -CHOL1TAB46 PO; +CLOP1TAB15 PO; +CRG125 PO; +DEXAMETHASONE SOD INJ 4 MG/ML VIAL ONE; +DEXTROSE 5% 50ML 50 ML IV SCH; -DOCU100C31 PO; -EPGI2M SQ; +EpHEDrine SULFATE INJ 50 MG/ML AMP IV PRN; +EpINEphrine INJ 1MG/ML AMP 1 MG/ML AMP ONE; +FENTANYL CITRATE INJ 50 MCG/1 ML 2 ML VIAL IV PRN; +FENTANYL CITRATE INJ 50 MCG/1 ML 2 ML VIAL ONE; -FERR1TAB62 PO; +HYALURONIDASE HUMAN 150 UNIT/ML INJ ONE; +HYDR-4717 PO; +INDOCYANINE GREEN 25 MG/10 ML ONE; +INSP SC; +LACTATED RINGER'S 1000ML 500 ML IV SCH; +LIDOCAINE HCL 2% 2 ML VIAL (20MG/ML) ONE; -LPT40 PO; -LSX40 PO; +MIDAZOLAM HCL 1 MG/ML 2ML VIAL ONE; -MULT-506 PO; +NEOMYCIN/POLYMYX/DEXAMETH OP OINT PER APP CHARGE ONE; +NURSING VERBAL MED ORDER ONE; -NVLRPUC SC; +OCUCOAT 1 ML SOLN IO ONE; +ONDANSETRON INJ 2 MG/ML 2 ML VIAL IV PRN; -PLV75 PO; +POVIDONE-IODINE OP SOLN (SURGERY CNTR CHARGING ONLY) ONE; +PROPARACAINE 0.5% OP SOLN PER DROP CHARGE OPL SCH; +PROPOFOL IV EMULSION 10 MG/ML 20 ML VIAL IV ONE; +RANI150T2 PO; +SODIUM CHLORIDE 0.9% 500ML 500 ML IV SCH; +TIMOLOL MALEATE 0.5% OP SOLN PER DROP CHARGE ONE; +TRIAMCINOLONE ACETONIDE OPHTH 40 MG/ML VIAL STERILE IO ONE; +VITAMIN D3 PO
--- NOTE | 2017-02-23 09:42 | History & Physical Bridge - SC ---
H&P Re-Evaluation Bridge Note: Pt has diabetic retinopathy with nonclearing vitreous hemorrhage in left eye and is having vitrectomy left eye. I have examined the patient, reviewed the History & Physical and in the interval since the performance of the History & Physical I have noted the following changes of clinical significance: No changes noted
[2017-02-23] MEDS: PHENYLEPHRINE HCL 2.5% OP SOLN PER DROP CHARGE OPL SCH ×2 (09:58→10:04)
[2017-02-23] MEDS: TROPICAMIDE 1% OP SOLN PER DROP CHARGE OPL SCH ×2 (09:59→10:05)
--- NOTE | 2017-02-23 11:59 | [facility] Operative Report ---
Operative Report Date of Service Feb 23, 2017. Operative Report PREOPERATIVE DIAGNOSIS: Proliferative diabetic retinopathy with vitreous hemorrhage, left eye ICD 10: H43.12 POSTOPERATIVE DIAGNOSIS: same. PROCEDURE: 1. Pars plana vitrectomy, 23 gauge. 2. Endolaser panretinal photocoagulation. All to the left eye. CPT CODE: 60608 SURGEON: Hudson Renteria D.O. COMPLICATIONS: None. ESTIMATED BLOOD LOSS: None. SPECIMENS: None. ANESTHESIA: Retrobulbar block and MAC INDICATIONS FOR PROCEDURE: Surgery is indicated to decrease risk of vision loss and potentially improve vision. CONSENT: The risks, benefits and alternatives were discussed with the patient including but not limited to decreased visual acuity, failure to achieve desired results, loss of the eye, infection, pain, glaucoma, lens changes, retinal tears, retinal detachment, the need for more procedures, drooping of the eyelid, blindness, and double vision. The patient is aware of risks and consents to the surgery. Consent is signed and on the chart. OPERATION AND FINDINGS: The patient was brought to the operating room where the patient was identified by name, date, and medical record number. The surgical site was confirmed with the informed written consent. The patient was sedated by the anesthesiology team after which a 50:50 mixture of 2% lidocaine and 0.75% bupivacaine with hyaluronidase was administered in a standard retrobulbar fashion. A total of 4 ml was administered without difficulty. The patient was then prepped and draped in the usual sterile manner for retinal surgery. A wire lid speculum was placed and an Rodney 23-gauge trocar cannula system was employed. The inferior temporal trocar cannula was first placed in an angled fashion 3.75mm posterior to the surgical limbus and the infusion cannula was inserted into this cannula after which the intravitreal position was verified prior to turning the infusion on. Two more trocar cannulas were then inserted in an angled fashion, one in the superior temporal, and one in the superior nasal quadrant both 3.75mm posterior to the surgical limbus. A light pipe and vitrector were then introduced into the eye and the BIOM wide angle viewing system was brought into place. Posterior inspection revealed proliferative diabetic retinopathy with nonclearing vitreous hemorrhage. Standard core vitrectomy was performed. The vitreous was insured to be totally detached from the posterior pole with the aid of the vitrector. Endolaser was used to perform ruiz retinal photocoagulation. At this point scleral depression was performed for 360 degrees and no retinal tears or detachments were noted. The trocar cannulas were then removed and found to be water tight. The intraocular pressure was found to be within normal limits by palpation and subconjunctival injections of Kefzol and dexamethasone were administered inferiorly and superiorly. The wire lid speculum was removed. Maxitrol and Atropine ointments were applied to the surface of the eye. A light patch and shield were taped over the surface of the eye and the patient left the Operating Room in stable condition having tolerated the procedure well. DISPOSITION: The patient has an appointment the following morning in the Ophthalmology Clinic. The patient is to call immediately if there are any problems overnight. I attest to the content of the Intraoperative Record and any orders documented therein. Any exceptions are noted below.
[2017-02-23 12:00] VITALS: TEMP 37
--- NOTE | 2017-02-23 12:00 | Discharge Instructions-SurgCtr ---
Discharge Instructions Date of Service Feb 23, 2017. Visit Reason for Visit: Left Eye Diabetic Retinopathy Discharge Discharge Diagnosis / Problem: same Discharge Goals Goal(s): Improve function Activity Recommendations Activity Limitations: per Instructions/Follow-up section Anesthesia . Post Anesthesia Instructions: If you have had General Anesthesia or IV Sedation: * Do not drive today. * Resume driving when surgeon permits. * Do not make important decisions or sign legal documents today. * Call surgeon for: 1. Temperature elevations greater than 101 degrees F. 2. Uncontrollable pain. 3. Excessive bleeding. 4. Persistent nausea and vomiting. 5. Medication intolerance (nausea, vomiting or rash). * For nausea and vomiting use only clear liquids such as: tea, soda, bouillon until nausea subsides, then gradually increase diet as tolerated. * If you have any concerns or questions, call your surgeon's office. If physician is unavailable and it is an emergency, call 911 or go to the nearest emergency room. . Instructions / Follow-Up Instructions / Follow-Up * May take Tylenol if needed for discomfort. * Do NOT remove eye shield. * NO straining, heavy lifting (>15 pounds) or bending below waist. * Avoid getting water or soap directly into operative eye. * Do NOT rub eye. If you experience increasing eye pain not relieved by medication, please contact us immediately at [phone]. If you are unable to reach someone at the above number, call [phone] and ask to speak with the EYE DOCTOR PATTERN DRUM MAKER. Inform them that you are a Dr. Renteria patient who had recent surgery. Diet Recommendations Home Diet: resume previous diet Procedures Procedures Performed: Left Eye 23 Gauge Vitrectomy, Endolaser Pending Studies Studies pending at discharge: no Medical Emergencies . Who to Call and When: Medical Emergencies: If at any time you feel your situation is an emergency, please call 911 immediately. . Non-Emergent Contact Non-Emergency issues call your: [facility] . . "Provider Documentation" section prepared by Hudson Renteria. .
[2017-02-23 12:23] VITALS: BP 133/56; PULSE 66; O2SAT 95
--- NOTE | 2017-02-23 12:30 | Anesthesia Progress Nt - [facility] ---
Anesthesia Post Op Note Date & Time Feb 23, 2017 at 12:30 Vital Signs Pain Intensity: 0 Vital Signs Past 12 Hours Date Time Temp Pulse Resp B/P (MAP) Pulse Ox O2 Delivery O2 Flow Rate FiO2 02/23/17 12:23 66 18 133/56 (81) 95 Room Air 02/23/17 12:00 37.0 73 16 155/54 (87) 96 Room Air 02/23/17 09:41 36.8 61 16 138/66 (90) 97 Room Air Notes Mental Status: alert / awake / arousable, participated in evaluation Pt Amnestic to Procedure: Yes Nausea / Vomiting: adequately controlled Pain: adequately controlled Airway Patency, RR, SpO2: stable & adequate BP & HR: stable & adequate Hydration State: stable & adequate Anesthetic Complications: no major complications apparent
== END | disposition home or self-care (01) ==
LOC: X.SURG 09:02
PROVIDERS: ATTEND Ophthalmology
DX: H43.12 Vitreous hemorrhage, left eye (principal); E11.22 Type 2 diabetes mellitus with diabetic chronic kidney disease; E11.311 Type 2 diabetes mellitus with unspecified diabetic retinopathy with macular edema; I13.2 Hypertensive heart and chronic kidney disease with heart failure and with stage 5 chronic kidney disease, or end stage renal disease; I50.32 Chronic diastolic (congestive) heart failure; N18.5 Chronic kidney disease, stage 5; Z99.2 Dependence on renal dialysis; Z79.4 Long term (current) use of insulin; I25.10 Atherosclerotic heart disease of native coronary artery without angina pectoris; E78.5 Hyperlipidemia, unspecified; G47.33 Obstructive sleep apnea (adult) (pediatric); J84.9 Interstitial pulmonary disease, unspecified; D64.9 Anemia, unspecified; F41.9 Anxiety disorder, unspecified; F32.9 Major depressive disorder, single episode, unspecified; M19.90 Unspecified osteoarthritis, unspecified site; M13.0 Polyarthritis, unspecified; Z79.02 Long term (current) use of antithrombotics/antiplatelets; Z79.899 Other long term (current) drug therapy

== ENCOUNTER 2017-07-01 08:30 | Emergency (ER) | payer OTHER ==
[~2017-07-01] VITALS: Ht 152.4 cm; Wt 92.4 kg
[~2017-07-01 08:30] MED LIST changes: -500ML BSSPLUS 0.5ML EPI1:1000 IRRIG ONE; +ACET-1693 PO; -ACET325T96 PO; -ACETAMINOPHEN 325 MG TAB PO PRN; -ATROPINE SULFATE 0.1 MG/ML 5ML SYR IV PRN; -ATROPINE SULFATE 1% OP OINT PER APPLICATION CHARGE ONE; -ATROPINE SULFATE 1% OP SOLN 2 ML BTL ONE; -BSS FLUSH ONE; -BUPIVACAINE HCL 0.75% 10 ML AMP/VIAL ONE; -CEFAZOLIN SOD 1 GM VIAL ONE; -DEXAMETHASONE SOD INJ 4 MG/ML VIAL ONE; -DEXTROSE 5% 50ML 50 ML IV SCH; -EpHEDrine SULFATE INJ 50 MG/ML AMP IV PRN; -EpINEphrine INJ 1MG/ML AMP 1 MG/ML AMP ONE; -FENTANYL CITRATE INJ 50 MCG/1 ML 2 ML VIAL IV PRN; -FENTANYL CITRATE INJ 50 MCG/1 ML 2 ML VIAL ONE; -HYALURONIDASE HUMAN 150 UNIT/ML INJ ONE; -INDOCYANINE GREEN 25 MG/10 ML ONE; -LACTATED RINGER'S 1000ML 500 ML IV SCH; -LIDOCAINE HCL 2% 2 ML VIAL (20MG/ML) ONE; -MIDAZOLAM HCL 1 MG/ML 2ML VIAL ONE; -NEOMYCIN/POLYMYX/DEXAMETH OP OINT PER APP CHARGE ONE; -NURSING VERBAL MED ORDER ONE; -OCUCOAT 1 ML SOLN IO ONE; -ONDANSETRON INJ 2 MG/ML 2 ML VIAL IV PRN; -POVIDONE-IODINE OP SOLN (SURGERY CNTR CHARGING ONLY) ONE; -PROPARACAINE 0.5% OP SOLN PER DROP CHARGE OPL SCH; -PROPOFOL IV EMULSION 10 MG/ML 20 ML VIAL IV ONE; -SODIUM CHLORIDE 0.9% 500ML 500 ML IV SCH; -TIMOLOL MALEATE 0.5% OP SOLN PER DROP CHARGE ONE; -TRIAMCINOLONE ACETONIDE OPHTH 40 MG/ML VIAL STERILE IO ONE
[2017-07-01 08:33] VITALS: TEMP 37; Ht 152.4 cm; Wt 92.4 kg
[2017-07-01] MEDS ORDERED: HYDROCODONE/ACETAMIN 5/325MG TAB PO STA (09:01)
--- NOTE | 2017-07-01 09:10 | EMERGENCY ROOM VISIT NOTE ---
History Report prepared by Kwame: Joe Tavera Under the Supervision of: Dr. Amy Nuñez M.D. First contact with patient: 08:48 Chief Complaint: HIP PAIN Stated Complaint: PAIN IN RT LEG & HIP History of Present Illness The patient is a 67 year old female who presents to the Emergency Room with complaints of worsening pain in her right hip that began 1 week ago. The pain is worsened with any movement/ROM of the right hip/leg. The patient states that she was walking when her pain began and has not fallen since an episode in April. She denies any history of complications with the right hip. She is currently receiving dialysis treatments and was supposed to receive a treatment this morning. She did not go because she "knew she wouldn't be able to get into the dialysis chair." She is on Aspirin as a blood thinner. The patient adds that she does have diarrhea every once in a while. Source of History: patient Onset: 1 week ago Position: leg (right hip) Timing: worsening Modifying Factors (Worsening): movement (/ROM of the right leg) Associated Symptoms: + diarrhea Note: No falls since April Review of Systems See HPI for pertinent positives & negatives. A total of 10 systems reviewed and were otherwise negative. Past Medical & Surgical Medical Problems: (1) Anxiety (2) Chronic anemia (3) CKD (chronic kidney disease), stage IV (4) Depression (5) Diabetes mellitus, type 2 (6) Diastolic CHF (7) GERD (gastroesophageal reflux disease) (8) Hx of migraines (9) Hyperlipidemia (10) Hypertension (11) Interstitial lung disease (12) KUSHAL (obstructive sleep apnea) (13) Weakness Surgical Problems: (1) Hx of shoulder surgery (2) Hx of total knee replacement Family History Cancer FATHER (? gastric primary) Dementia MOTHER Diabetes mellitus MOTHER BROTHER BROTHER Kidney disease MOTHER Myocardial infarction BROTHER BROTHER Social History Smoking Status: Never Smoker Alcohol Use: none Drug Use: none Marital Status: Housing Status: lives with family Current/Historical Medications Scheduled Amlodipine (Norvasc), 10 MG PO DAILY Atorvastatin (Lipitor), 40 MG PO QAM B-Complex W/ C & Folic Acid (Triphrocaps), 1 CAP PO DAILY Calcium Acetate (Phosphate Bin (Phoslo 667 Mg), 2 CAP PO TIDM Carvedilol (Carvedilol), 12.5 MG PO BID Cholecalciferol (Vitamin D3), 5,000 UNITS PO DAILY Clopidogrel (Plavix), 75 MG PO QAM Hydralazine Hcl (Apresoline), 50 MG PO TID Insulin Human NPH (Novolin N), 26 UNITS SC QAM Insulin Human NPH (Novolin N), 20 UNITS SC QPM Insulin Human Regular (Novolin R), 1 DOSE SC AC Magnesium Oxide (Mag-Ox), 400 MG PO QAM Nitroglycerin (Nitrostat), 1 DOSE SL UD Ranitidine HCl (Ranitidine HCl), 150 MG PO DAILY Scheduled PRN Acetaminophen Tab (Tylenol), 650 MG PO Q6 PRN for Pain Meclizine HCl (Meclizine 25), 25 MG PO TID PRN for Dizziness or Vertigo Tramadol (Ultram), 100 MG PO BID PRN for Pain Allergies Coded Allergies: Codeine (Verified Allergy, Intermediate, hives, 07/01/17) Pioglitazone (Unverified Allergy, Intermediate, Rash/Fluid retention, 07/01) RETAINS FLUID Morphine (Verified Allergy, Mild, HIVES, 07/01/17) Physical Exam Vital Signs Date Time Temp Pulse Resp B/P (MAP) Pulse Ox O2 Delivery O2 Flow Rate FiO2 07/01/17 11:45 72 20 153/50 95 07/01/17 10:36 70 16 138/61 97 Room Air 07/01/17 08:33 37.0 71 18 132/54 97 Room Air Physical Exam Vital signs reviewed. General: Well-appearing obese female, in no significant distress. HEENT: No scleral icterus, PERRLA, neck supple. Atraumatic. Cardiovascular: Regular rate and rhythm, no extra sounds. Pulmonary: Clear to auscultation bilaterally, normal work of breathing. Abdomen: Soft, nontender, obese, nondistended, positive bowel sounds. Musculoskeletal: Atraumatic, no peripheral edema. Tender to right hip. Pain with any ROM of the right leg. Lumbar spine without step-off. Neurologic: Patient awake alert and oriented x 3, diffusely weak but equal strength in all 4 extremities. Cranial nerves 2 through 12 grossly intact. Skin: Warm, dry, no rash Medical Decision & Procedures ER Provider Diagnostic Interpretation: Radiology results as stated below per my review and radiologist interpretation: R HIP UNILATERAL 2 VIEWS HISTORY: 67 years-old Female RIGHT HIP PAIN acute right hip pain COMPARISON: None available TECHNIQUE: 2 views of the right hip FINDINGS: Moderate right femoral acetabular osteoarthritis. The bones appear at least mildly demineralized. There is no acute fracture or dislocation identified. Degenerative changes about the right SI joint and pubic symphysis also noted with pubic symphysis chondrocalcinosis. Extensive peripheral arterial calcifications. No opaque foreign body. IMPRESSION: No acute fracture or dislocation. The above report was generated using voice recognition software. It may contain grammatical, syntax or spelling errors. Electronically signed by: Steven Ramos M.D. 07/01/2017 9:38 AM Dictated Date/Time: 07/01/2017 9:36 AM LUMBAR SPINE 5 VIEWS HISTORY: LOW BACK-> RIGHT HIP PAIN COMPARISON: None. FINDINGS: There is no fracture. No subluxation. Mild facet degenerative changes within the lower lumbar spine. Abnormal alignment in the distal sacrum which appears to be displaced anteriorly by approximately 9 mm. However, the edges appear well corticated. Therefore, this favors an old fracture. Mild disc space narrowing L5-S1. Small endplate osteophytes throughout the lumbar spine. IMPRESSION: 1. No acute fracture or subluxation within the lumbar spine. 2. Mild degenerative changes within the lower lumbar spine as described above. 3. Deformity/displacement the distal sacrum which favors an old, healed fracture. Electronically signed by: Manny Reza M.D. 07/01/2017 9:46 AM Dictated Date/Time: 07/01/2017 9:38 AM Medications Administered Medications (Trade) Dose Ordered Sig/Aleks Route Start Time Stop Time Status Last Admin Dose Admin Acetaminophen/ Hydrocodone Bitart ([place] 5/325 Tab) 1 tab NOW STAT PO 07/01/17 09:01 07/01/17 09:04 DC 07/01/17 09:12 1 TAB ED Course 0900: Past medical records reviewed. The patient was evaluated in room B7. A complete history and physical examination was performed. 0901: Ordered Hydrocodone 1 tablet PO. 1129: Upon reevaluation, the patient appeared to have improvement of her symptoms. I discussed findings with her. She verbalized agreement of the treatment plan. The patient was discharged home. Medical Decision Differential diagnosis: Etiologies such as fracture, dislocation, neurovascular compromise, compartment syndrome, soft tissue injury, as well as others were entertained. This patient was evaluated and appeared to be in no significant distress. X- ray of the right hip and lumbar spine were performed and reveals chronic changes , and old healed sacral fracture, but no acute bony pathology. Patient was given [place] tablet prior to x-ray which seemed to alleviate some of her discomforts. Patient was discharged to the care of her family. She will follow -up with her PCP and continue Tylenol as needed for pain. Patient was advised to seek her dialysis treatment as soon as possible. She will return to the ED for worsening symptoms or any medical concerns. Medication Reconcilliation Current Medication List: was personally reviewed by me Blood Pressure Screening Patient's blood pressure: Normal blood pressure Impression Primary Impression: Strain of right hip Scribe Attestation The scribe's documentation has been prepared under my direction and personally reviewed by me in its entirety. I confirm that the note above accurately reflects all work, treatment, procedures, and medical decision making performed by me. Departure Information Dispostion Home / Self-Care Referrals Yanet Golden M.D. (PCP) Forms HOME CARE DOCUMENTATION FORM, IMPORTANT VISIT INFORMATION, WORK / SCHOOL INSTRUCTIONS Patient Instructions My [facility] Additional Instructions Tylenol 650 mg every 6 hours as needed for pain. Follow-up with your primary care physician for reevaluation of your pain if it continues. Return to the ER for worsening of symptoms or any medical concerns.
--- NOTE | 2017-07-01 09:40 | DIAGNOSTIC IMAGING REPORT ---
R HIP UNILATERAL 2 VIEWS HISTORY: 67 years-old Female RIGHT HIP PAIN acute right hip pain COMPARISON: None available TECHNIQUE: 2 views of the right hip FINDINGS: Moderate right femoral acetabular osteoarthritis. The bones appear at least mildly demineralized. There is no acute fracture or dislocation identified. Degenerative changes about the right SI joint and pubic symphysis also noted with pubic symphysis chondrocalcinosis. Extensive peripheral arterial calcifications. No opaque foreign body. IMPRESSION: No acute fracture or dislocation. The above report was generated using voice recognition software. It may contain grammatical, syntax or spelling errors. Electronically signed by: Steven Ramos M.D. 07/01/2017 9:38 AM Dictated Date/Time: 07/01/2017 9:36 AM
--- NOTE | 2017-07-01 09:47 | DIAGNOSTIC IMAGING REPORT ---
LUMBAR SPINE 5 VIEWS HISTORY: LOW BACK-> RIGHT HIP PAIN COMPARISON: None. FINDINGS: There is no fracture. No subluxation. Mild facet degenerative changes within the lower lumbar spine. Abnormal alignment in the distal sacrum which appears to be displaced anteriorly by approximately 9 mm. However, the edges appear well corticated. Therefore, this favors an old fracture. Mild disc space narrowing L5-S1. Small endplate osteophytes throughout the lumbar spine. IMPRESSION: 1. No acute fracture or subluxation within the lumbar spine. 2. Mild degenerative changes within the lower lumbar spine as described above. 3. Deformity/displacement the distal sacrum which favors an old, healed fracture. Electronically signed by: Manny Reza M.D. 07/01/2017 9:46 AM Dictated Date/Time: 07/01/2017 9:38 AM
[2017-07-01] MEDS ORDERED: MECL-91 PO (10:28)
[2017-07-01] MEDS ORDERED: NTRGSL/4 SL (10:28)
[2017-07-01] MEDS ORDERED: TRAM-10 PO (10:28)
[2017-07-01] MEDS ORDERED: CHOLCAP5 PO (10:28)
[2017-07-01] MEDS ORDERED: B-COCAP28 PO (10:28)
[2017-07-01 11:45] VITALS: BP 153/50; PULSE 72; O2SAT 95
== END 2017-07-01 11:59 | disposition home or self-care (01) ==
LOC: C.EDB 08:32
DX: S76.011A Strain of muscle, fascia and tendon of right hip, initial encounter (principal); X58.XXXA Exposure to other specified factors, initial encounter; R53.1 Weakness; E66.9 Obesity, unspecified; Z99.2 Dependence on renal dialysis; Z87.828 Personal history of other (healed) physical injury and trauma; I13.0 Hypertensive heart and chronic kidney disease with heart failure and stage 1 through stage 4 chronic kidney disease, or unspecified chronic kidney disease; I50.30 Unspecified diastolic (congestive) heart failure; E11.22 Type 2 diabetes mellitus with diabetic chronic kidney disease; Z79.4 Long term (current) use of insulin; N18.4 Chronic kidney disease, stage 4 (severe); Z79.02 Long term (current) use of antithrombotics/antiplatelets; D64.9 Anemia, unspecified; K21.9 Gastro-esophageal reflux disease without esophagitis; Z96.659 Presence of unspecified artificial knee joint; Z88.6 Allergy status to analgesic agent; Z88.8 Allergy status to other drugs, medicaments and biological substances

== ENCOUNTER 2017-07-03 11:56 | Emergency (ER) | payer OTHER ==
[~2017-07-03] VITALS: Ht 152.4 cm; Wt 92.0 kg
[~2017-07-03 11:56] MED LIST changes: +CHOLCAP5 PO; +MECL-91 PO; +NTRGSL/4 SL; +TRAM-10 PO
[2017-07-03 12:06] VITALS: TEMP 36.7; Ht 152.4 cm; Wt 92.0 kg
[2017-07-03] MEDS ORDERED: HYDROCODONE/ACETAMIN 5/325MG TAB PO STA (12:48)
[2017-07-03] MEDS ORDERED: HYDR-5688 PO (13:07)
[2017-07-03] MEDS ORDERED: CYCL10TA6 PO (13:07)
--- NOTE | 2017-07-03 13:08 | EMERGENCY ROOM VISIT NOTE ---
ED Visit Note First contact with patient: 12:10 CHIEF COMPLAINT: Ongoing right hip pain into the right leg 1 week HISTORY OF PRESENT ILLNESS: Patient is a 67-year-old female who returns the emergency department for ongoing right hip and right leg pain. She has had symptoms for about a week. She was seen and evaluated here 2 days ago with negative right hip and lumbar spine x-rays. She reports that she was not prescribed any medication for pain upon discharge. Today, she states that she was crying while at dialysis and Dr. Escoto advised that she get something stronger for pain. She called her primary care doctor's office, Dr. Golden, and they referred her to the emergency department, stating that she "might need an MRI." Patient notes ongoing right groin pain, and states that the pain radiates down the front of her right thigh and stops at her knee. She has also had some numbness in the right thigh distribution that started in the last day. She has some chronic low back pain. She has been taking Tylenol for discomfort, and is on tramadol 50 mg 1-2 times daily for right hand pain which is presently being evaluated by her PCP. She has testing to evaluate for carpal tunnel syndrome next week. She has hand pain, typically after dialysis. The patient denies any change in her bowel or bladder habits. She does admit that she does not make that much urine. She has not had any bowel or bladder incontinence however. No weakness of the lower extremities. She is ambulatory with a walker in her home, and uses a wheelchair when she is out. She has chronic swelling in her lower legs and denies any changes in this. REVIEW OF SYSTEMS: Review of systems as per HPI. All other systems reviewed were negative. 10 systems reviewed. PMH: Electronic medical records are reviewed and summarized as above/below. See Problem List. SOCIAL HISTORY: Patient lives at home with her . Non-smoker. PHYSICAL EXAM: Vital Signs: Reviewed Nurse's notes. CONSTITUTIONAL: Patient is an obese 67-year-old female who is awake and alert and laying on the gurney and mild distress due to her stated complaint. There is moderate discomfort with position changes. CARDIOVASCULAR: Regular rate and rhythm. Peripheral pulses easily palpable. RESPIRATORY: Breath sounds equal and clear to auscultation. Full and equal chest expansion without accessory muscle use or retractions. ABDOMEN: Bowel sounds are present. Abdomen is soft, nontender and nondistended. RECTAL EXAM: No masses or tenderness, good rectal tone noted. INTEGUMENTARY: No lesions or rash, normal skin turgor. LYMPH: No lymphadenopathy. SPINE: Examination of the patient's back does not demonstrate any ecchymosis, abrasions or outward signs of trauma. No erythema, increased warmth or induration. Patient has midline discomfort to palpation over the low lumbar spine, primarily on the right. There is no pain over the SI joint or the sciatic notch. She has increased pain with range of motion including rotation and flexion. EXTREMITIES: Leg lengths are symmetrical. Trace pitting edema noted in the pretibial area. Negative logroll bilaterally. Normal strength including dorsi- flexion and plantar flexion of the great toes and ankles and flexion and extension of the knees and flexion of the hips. The patient has pain with straight leg raise in the right groin, no radicular pain down the right leg. Negative left-sided straight leg raise testing. She has pain with hip internal and external rotation. Lower extremity DTRs are equal and symmetrical bilaterally. Distal pulses are easily palpable. Sensation light touch is intact over the lower extremities bilaterally. EMERGENCY DEPARTMENT COURSE: The patient was seen and assessed as above. Her old records were reviewed, specifically her ED visit from 2 days ago. Diagnostic imaging study results were also reviewed at that time. The patient was given 2 [place] tablets orally. History and presentation were reviewed with attending physician. She does have pain in the right hip, low back and radiating down the right leg slightly which could be radicular in the lumbar spine. She does not have any leg weakness, and no findings consistent with a acute cord compression or cauda equina syndrome. Pain management regimen was discussed with her. Patient reports that she had had some Flexeril from a prior rib injury which had helped slightly. She was also provided a prescription for [place] to use for pain in place of the tramadol and Tylenol. She may require an MRI, but it was not felt that it needed to be performed emergently here today. This was discussed with the patient and her and they expressed understanding and were in agreement. The patient was discharged home with instructions to follow-up with her primary care provider next week. Patient history and presentation were reviewed with attending physician who also independently evaluated the patient Medication reconciliation: I attest that I have personally reviewed the patient' s current medication list. Blood pressure screening : Patient was found to have normal blood pressure on screening and does not require follow-up. Patient was reviewed in the [facility] Prescription Drug Monitoring Program, and there were no red flags noted. (Adrienne Barrios,CLARIBEL) First contact with patient: 12:10 The patient was seen and examined with ky. I agree with the history, physical and findings. Please see the note for disposition and details. (Jorge Millan M.D.) Problem List Medical Problems: (1) Anxiety Status: Chronic (2) Chronic anemia Status: Chronic (3) CKD (chronic kidney disease), stage IV Status: Chronic (4) Depression Status: Chronic (5) Diabetes mellitus, type 2 Status: Chronic (6) Diastolic CHF Status: Chronic (7) GERD (gastroesophageal reflux disease) Status: Chronic (8) Hx of migraines Status: Chronic (9) Hyperlipidemia Status: Chronic (10) Hypertension Status: Chronic (11) Interstitial lung disease Status: Chronic (12) KUSHAL (obstructive sleep apnea) Permanent Comment: CPAP HS Status: Chronic Surgical Problems: (1) Hx of shoulder surgery Status: Chronic (2) Hx of total knee replacement Status: Chronic (Jorge Millan M.D.) Current/Historical Medications Scheduled Amlodipine (Norvasc), 10 MG PO DAILY Atorvastatin (Lipitor), 40 MG PO QAM B-Complex W/ C & Folic Acid (Triphrocaps), 1 CAP PO DAILY Calcium Acetate (Phosphate Bin (Phoslo 667 Mg), 2 CAP PO TIDM Carvedilol (Carvedilol), 12.5 MG PO BID Cholecalciferol (Vitamin D3), 5,000 UNITS PO DAILY Clopidogrel (Plavix), 75 MG PO QAM Hydralazine Hcl (Apresoline), 50 MG PO TID Insulin Human NPH (Novolin N), 26 UNITS SC QAM Insulin Human NPH (Novolin N), 20 UNITS SC QPM Insulin Human Regular (Novolin R), 1 DOSE SC AC Magnesium Oxide (Mag-Ox), 400 MG PO QAM Nitroglycerin (Nitrostat), 1 DOSE SL UD Ranitidine HCl (Ranitidine HCl), 150 MG PO DAILY Scheduled PRN Acetaminophen Tab (Tylenol), 650 MG PO Q6 PRN for Pain Cyclobenzaprine Hcl (Flexeril), 10 MG PO TID PRN for Muscle Spasms Hydrocodone/Acetaminophen 5MG/325MG ([place] 5MG/325MG), 1-2 TABLETS PO Q4 PRN for Pain Meclizine HCl (Meclizine 25), 25 MG PO TID PRN for Dizziness or Vertigo Tramadol (Ultram), 100 MG PO BID PRN for Pain Allergies Coded Allergies: Codeine (Verified Allergy, Intermediate, hives, 07/03/17) Pioglitazone (Unverified Allergy, Intermediate, Rash/Fluid retention, 07/03) RETAINS FLUID Morphine (Verified Allergy, Mild, HIVES, 07/03/17) Vital Signs Date Time Temp Pulse Resp B/P (MAP) Pulse Ox O2 Delivery O2 Flow Rate FiO2 07/03/17 13:30 68 16 122/60 96 07/03/17 12:06 36.7 75 20 132/49 97 Room Air (Jorge Millan M.D.) Medications Administered Medications (Trade) Dose Ordered Sig/Aleks Route Start Time Stop Time Status Last Admin Dose Admin Acetaminophen/ Hydrocodone Bitart ([place] 5/325 Tab) 2 tab NOW STAT PO 07/03/17 12:48 07/03/17 12:49 DC 07/03/17 13:10 2 TAB (Jorge Millan M.D.) Departure Information Impression Primary Impression: Leg pain, right Prescriptions Cyclobenzaprine Hcl (FLEXERIL) 10 Mg Tab 10 MG PO TID Y for Muscle Spasms, #30 TAB Prov: Adrienne Barrios PA 07/03/17 Hydrocodone/Acetaminophen 5MG/325MG ([place] 5MG/325MG) Tab 1-2 TABLETS PO Q4 Y for Pain, #25 TAB For Initial Treatment Prov: Adrienne Barrios PA 07/03/17 Referrals OncuRukhsana DO (PCP) Patient Instructions My [facility] Additional Instructions DO NOT drive, drink alcohol, operate machinery, or perform dangerous activities today. You were given medications in the ER that can affect your ability to safely function or operate a vehicle. Hydrocodone/Acetaminophen ([place]) 5/325 mg: Take 1-2 pills every four hours for breakthrough pain. Avoid alcohol, operating machinery or dangerous equipment, working on ladders or roofs, DRIVING, or situations where being under the influence may be dangerous. It is recommended to use an [id number] stool softener such as Colace, 100mg twice daily while taking this medication to avoid constipation. Cyclobenzaprine (Flexeril) 10 mg: Take 1 pills 3 times daily as needed for muscle spasms.. Avoid alcohol, operating machinery or dangerous equipment, working on ladders or roofs, DRIVING, or situations where being under the influence may be dangerous. Stop Tramadol while using [place]. Rest and avoid heavy lifting until your symptoms resolve and then gradually return to full activity. A good rule of thumb is if it hurts your back to perform a certain activity, then it should be avoided until you are healthy again. A heating pad, warm compresses, or a hot shower may help with tight muscles and can be done several times a day as needed. Continue current medications. Return to the ER immediately for any leg weakness, severe pain, loss of control of your bowels or bladder, inability to walk, or as needed. Follow up with your primary care physician within 3-5 days for a recheck of your current condition.
[2017-07-03 13:30] VITALS: BP 122/60; PULSE 68; O2SAT 96
== END 2017-07-03 13:31 | disposition home or self-care (01) ==
LOC: C.EDB 11:59 → C.EDD 13:31
DX: M79.604 Pain in right leg (principal); F41.9 Anxiety disorder, unspecified; D64.9 Anemia, unspecified; N18.4 Chronic kidney disease, stage 4 (severe); F32.9 Major depressive disorder, single episode, unspecified; E11.9 Type 2 diabetes mellitus without complications; I50.30 Unspecified diastolic (congestive) heart failure; K21.9 Gastro-esophageal reflux disease without esophagitis; E78.5 Hyperlipidemia, unspecified; I10 Essential (primary) hypertension; G47.33 Obstructive sleep apnea (adult) (pediatric); Z79.4 Long term (current) use of insulin; Z88.5 Allergy status to narcotic agent

== ENCOUNTER 2018-05-04 14:35 | Inpatient (IN) ==
[2018-05-04 15:42] LABS: Basophils # (auto) 0.01 K/uL (0-0.2); Basophils % (auto) 0.1 %; Eosinophils # (auto) 0.33 K/uL (0-0.5); Eosinophils % (auto) 4.9 %; Hematocrit (blood only) 30.3 % (37-47); Hemoglobin 9.6 g/dL (12.0-16.0); Immature Granulocytes # (auto) 0.03 K/uL (0.00-0.02); Immature Granulocytes % (auto) 0.4 %; Lymphocytes # (auto) 1.57 K/uL (1.2-3.4); Lymphocytes % (auto) 23.1 %; Mean Corpuscular Hgb Conc 31.7 g/dL (32-36); Mean Corpuscular Volume 100.7 fL (80-100); Mean Platelet Volume 9.9 fL (7.4-10.4); Monocytes # (auto) 0.73 K/uL (0.11-0.59); Monocytes % (auto) 10.8 %; Neutrophils # (auto) 4.12 K/uL (1.4-6.5); Neutrophils % (auto) 60.7 %; Platelet Count 198 K/uL (130-400); RDW Coefficient of Variation 18.1 % (11.5-14.5); Red Blood Count 3.01 M/uL (4.2-5.4); White Blood Count 6.79 K/uL (4.8-10.8)
--- NOTE | 2018-05-04 15:50 | XRay Report ---
XR chest 1V portable CLINICAL HISTORY: weakness dyspnea COMPARISON STUDY: 10/28/2017 FINDINGS: Mild stable cardiomegaly. Calcification of the mitral annulus. Lungs are clear. Diaphragms are smooth. Right shoulder arthroplasty. IMPRESSION: No acute process. The above report was generated using voice recognition software. It may contain grammatical, syntax or spelling errors. Electronically signed by: Ismael Hull M.D. 05/04/2018 3:48 PM
[2018-05-04 16:10] LABS: Albumin Globulin Ratio 0.7 (0.9-2); Albumin Level 2.8 gm/dl (3.4-5.0); BUN Creatinine Ratio 8.2 (10-20); Bilirubin,Total 0.4 mg/dl (0.2-1); Calcium 8.9 mg/dl (8.5-10.1); Creatinine Clr Calc Pharmacy 8.4 ml/min; Est GFR (African American) 6.6; Est GFR (Non-African American) 5.7; Globulin 3.8 gm/dl (2.5-4.0); Magnesium 2.2 mg/dl (1.8-2.4); Potassium 4.4 mmol/L (3.5-5.1); Total Protein 6.6 gm/dl (6.4-8.2); Troponin I 0.016 ng/ml (0-0.045)
--- NOTE | 2018-05-04 16:23 | CT Scan Report ---
HEAD CT NONCONTRAST CT DOSE: 729.78 mGycm HISTORY: Altered mental status TECHNIQUE: Multiaxial CT images of the head were performed without the use of intravenous contrast. A utomated exposure control was utilized for this study. A dose lowering technique was utilized adheri ng to the principles of ALARA. Comparison: Head CT 01/07/2017. Findings: A 1.4 cm retention cyst within the left maxillary sinus. Small fluid levels within the sphe noid sinuses. The mastoid air cells are clear. The calvarium and skull base are intact. There is no m ass, hematoma, midline shift, acute infarct. White matter hypodensity is nonspecific but suggestive o f microvascular ischemic change. The ventricles and sulci demonstrate mild age-related involutional c hanges. Old small right posterior parietal, posterior occipital, right basal ganglia, and right thala gallo infarcts. This remains unchanged. Impression: 1. No acute intracranial abnormality. 2. 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 3. Mild sinus disease as described above. Electronically signed by: Manny Reza M.D. 05/04/2018 4:22 PM
[2018-05-04] MEDS ORDERED: PHARMACY GLYCEMIC MGMT CONSULT STA (20:49)
--- NOTE | 2018-05-04 21:09 | History & Physical Report ---
Date of Service May 04, 2018 Assessment & Plan (1) Ambulatory dysfunction: (2) Generalized weakness: This is a 67-year-old female who has a significant past medical history of CAD with history of stent to LAD in 2017, end-stage renal disease on hemodialysis MWF, HTN, HLD, KUSHAL on CPAP, chronic diastolic CHF, T2DM with neuropathy, retinopathy and nephropathy, history of CVA/TIA, interstitial lung disease who presents to [facility] ED secondary to difficulty ambulating and weakness x1 day. In ED pt noted to be significantly hypertensive, H/H stable at 9.6 and 30.3, afebrile and wbc 6.79, Bun 55, Cr 6.78, electrolytes otherwise okay CXR w/o acute abnormality ECG NSR with 1st degree AV block Staff unable to ambulate patient given weakness; initial thought per ED was to discharge patient to rehab but they had no beds available therefore will admit patient for further evaluation -admit to med/surg telemetry -check urinalysis given pt hx of UTI to r/o infectious process -Obtain echocardiogram -trend troponin to rule out acute cardiac process -follow cbc, bmp -consult nephrology for HD -consult PT/OT to eval for rehab (3) ESRD (end stage renal disease) on dialysis: -HD MWF -consult nephrology (4) CAD (coronary artery disease): -no chest pain/sob but does complain of chest heaviness and chronic MENDOZA -initial troponin negative, will trend q6hr x 2 -repeat echocardiogram -continue ASA, Statin, plavix, coreg (5) Diabetes mellitus, type 2: -insulin dependent, takes novolin R and N at home -will consult pharmacy for glycemic management (6) Diastolic CHF: -EF 2017 55-60%, failed stress echo at time -underwent left heart cath and received 1 stent to LAD -continue ASA, statin, plavix, coreg -HD for volume management -daily weights, strict I and O -fluid restriction (7) Hypertension: -blood pressure uncontrolled while in ED, last -continue coreg, does not appear to be on any other hypertensives per -will add hydralazine 25mg po q6h prn -monitor and titrate accordingly (8) Hyperlipidemia: -continue statin (9) History of CVA (cerebrovascular accident): -Hx of right sided thalamic, basal ganglia, posterior parietal and occipital infarct -continue ASA, statin, plavix (10) Chronic anemia: -Hemoglobin and hematocrit stable at 9.6 and 30.3 -Receives Procrit -Monitor CBC (11) Interstitial lung disease: -no acute exac -encourage incentive spirometry (12) KUSHAL (obstructive sleep apnea): -CPAP at HS (13) GERD (gastroesophageal reflux disease): -continue ranitidine (14) Prolonged Q-T interval on ECG: -QTC 480ms on ecg -monitor and avoid qt prolonging agents if possible (15) DVT prophylaxis: -heparin 5,000 units SQ q8hrs Disposition: Likely d/c to rehab given ambulatory dysfunction, consult case management Follow up: PCP Dr. Golden upon discharge and continue with HD MWF Patient was seen and examined in collaboration with Dr. Phan, please see addendum Starting 05/05/18 pt will be under the care of Dr. Collier History of Present Illness Chief Complaint: Difficulty walking and weakness x 1 day. Primary Care Provider: Yanet Golden MD This is a 67-year-old female who has a significant past medical history of CAD with history of stent to LAD in 2017, end-stage renal disease on hemodialysis MWF, HTN, HLD, KUSHAL on CPAP, chronic diastolic CHF, T2DM with neuropathy, retinopathy and nephropathy, history of CVA/TIA, interstitial lung disease who presents to [facility] ED secondary to difficulty ambulating and weakness x1 day. Patient's and granddaughter are at bedside. Patient notes symptoms started yesterday morning whenever she was going to dialysis at approximately 7 AM. She had difficulty going down her stairs secondary to leg weakness, unable to hold up patient therefore she was placed on the ground. She did not fall. EMS was called to get patient into car to be transported to hemodialysis. Patient had full treatment of hemodialysis on 05/05; however, continued to have overall generalized weakness and difficulty walking. According to epic records has been reported increased shaking, dizziness, disorientation and was concerned about possible mini stroke due to her history. Patient also notes when she was admitted to [facility] in 10/2017 she had a urinary tract infection which also presented similar. She denies any recent fever but always feels cold, denies any lightheadedness, presyncopal symptoms, upper respiratory symptoms, chest pain, palpitations, shortness of breath at rest. She does elicit to overall chest heaviness over the past 2 to 3 days, "feels like a pressure like something is sitting on my chest, increases with exertion, improves with rest." She denies any libra cough or hemoptysis, nausea, vomiting, abdominal pain, diarrhea. She is mostly anuric but does occasionally urinate. She denies any dysuria or hematuria. Her appetite is, "too good." Denies any significant weight gain. Does not occasionally get swelling but usually improves with dialysis. Does not notice any increased swelling of her bilateral lower extremities. No sick contacts. Allergies Allergy/AdvReac Type Severity Reaction Status Date / Time codeine Allergy Intermediate hives Verified 07/03/17 12:49 pioglitazone Allergy Intermediate Rash/Fluid Unverified 07/03/17 12:49 retention morphine Allergy Mild HIVES Verified 07/03/17 12:49 Home Medications Home Medications Medication Instructions Recorded Confirmed Type Novolin N NPH U-100 Insulin 22 unit SUBCUT PM 10/29/17 05/04/18 History Novolin N NPH U-100 Insulin 26 unit SUBCUT QAM 10/29/17 05/04/18 History Triphrocaps 1 cap PO DAILY 10/29/17 05/04/18 History aspirin 81 mg PO DAILY 10/29/17 05/04/18 History atorvastatin 40 mg PO DAILY 10/29/17 05/04/18 History carvedilol 12.5 mg PO BID 10/29/17 05/04/18 History cholecalciferol (vitamin D3) 5,000 unit PO DAILY 10/29/17 05/04/18 History [Vitamin D3] clopidogrel [Plavix] 75 mg PO DAILY 10/29/17 05/04/18 History gabapentin 300 mg PO DAILY 10/29/17 05/04/18 History magnesium oxide 400 mg PO DAILY 10/29/17 05/04/18 History meclizine 25 mg PO TID PRN 10/29/17 05/04/18 History nitroglycerin [Nitrostat] 0.4 mg SUBLINGUAL UD PRN 10/29/17 05/04/18 History ranitidine HCl 150 mg PO DAILY 10/29/17 05/04/18 History acetaminophen [Tylenol] 650 mg PO QID PRN 05/04/18 05/04/18 History amino ac-protein hydr-whey pro 30 ml PO BID 05/04/18 05/04/18 History [Liquacel] insulin regular human [Novolin R 15 - 30 unit SUBCUT UD 05/04/18 05/04/18 History Regular U-100 Insuln] sevelamer carbonate [Renvela] 3 tab PO TID 05/04/18 05/04/18 History Past Med/Surg History Medical History CAD (coronary artery disease) (Chronic) LAD x 1 11/2016 Diabetic peripheral neuropathy (Chronic) Diabetes mellitus with neuropathy (Chronic) AV fistula (Chronic) ESRD (end stage renal disease) on dialysis (Chronic) Hyperlipidemia (Chronic) Hypertension (Chronic) Interstitial lung disease (Chronic) Depression (Chronic) Anxiety (Chronic) KUSHAL (obstructive sleep apnea) (Chronic) "CPAP HS" GERD (gastroesophageal reflux disease) (Chronic) Diastolic CHF (Chronic) Hx of migraines (Chronic) Chronic anemia (Chronic) Diabetes mellitus, type 2 (Chronic) CKD (chronic kidney disease), stage IV (Chronic) Callus (Acute) Hallux abducto valgus, bilateral (Acute) Surgical History History of coronary artery stent placement (Chronic) History of (Chronic) History of cholecystectomy (Chronic) Status post laser trabeculoplasty of eye (Chronic) History of bilateral cataract extraction (Chronic) Hx of total knee replacement (Chronic) Hx of shoulder surgery (Chronic) Social History Preferred Language: Belgian Communication Ability: Effective Marine Oiler Required: No Beliefs That Will Affect Care: Druze marital status: Current Living Situation: Spouse Other Information That Helps Us Care for You: No Feels Safe at Home: Yes Safety Concerns: Feels Safe At This Time Smoking Status: Never smoker Hx Alcohol Use: No Hx Substance Use: No Review of Systems All systems reviewed & are unremarkable except as noted in HPI & below Physical Exam Vital Signs (Past 24 Hours): Last Vital Signs Temp 36.9 C 05/04/18 14:37 Pulse 74 05/04/18 20:31 Resp 16 05/04/18 20:31 BP 182/60 H 05/04/18 20:31 Pulse Ox 100 05/04/18 20:31 Physical Exam: Gen: WD/WN, morbidly obese, female, NAD, sitting up in bed, pleasant, conversing easily Head: Normocephalic, Atraumatic Eyes: Sclera normal, no conjunctival injection, PERRLA, EOMI ENT: Gross hearing intact, normal pharynx, mucous membranes moist Neck: supple, no adenopathy, No JVD, no bruit, Resp: Clear to auscultation b/l, no wheeze, rales, rhonchi. Normal insp/exp effort, no accessory muscle use CV: Regular rate, regular rhythm, occasional ectopy but no murmur, rub, gallop Abd: Obese abdomen +BS x 4, soft, nontender, nondistended Musculoskeletal: moves extremities active rom x 2 upper extremities, difficult active range of motion to bilateral lower extremities, strength intact 4/5 upper ext, 3/5 lower ext, good surgical technician strength, no clonus Extremities: +1 edema bilaterally, no erythema or warmth, LUE AV Fistula intact Skin: warm, moist, no rash, negative turgor, cap refill < 2sec Neuro: Alert and oriented x 3, speech normal, good mood/affect, cran nerve 2-12 intact grossly : deferred Results & Data Laboratory Results Short CBC 05/04/18 Range/Units 15:30 WBC 6.79 (4.8-10.8) K/uL Hgb 9.6 L (12.0-16.0) g/dL Hct 30.3 L (37-47) % Plt Count 198 (130-400) K/uL BMP 05/04/18 15:30 Sodium 138 Potassium 4.4 Chloride 101 Carbon Dioxide 32 BUN 55 H Creatinine 6.78 H* Glucose 96 Calcium 8.9 Cardiac Enzymes 05/04/18 Range/Units 15:30 Troponin I 0.016 (0-0.045) ng/ml Liver Function 05/04/18 Range/Units 15:30 Total Bilirubin 0.4 (0.2-1) mg/dl AST 15 (15-37) U/L ALT 18 (12-78) U/L Alkaline Phosphatase 66 (45-117) U/L Albumin 2.8 L (3.4-5.0) gm/dl Diagnostic Findings Head CT: Impression: 1. No acute intracranial abnormality. 2. 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 3. Mild sinus disease as described above. CXR: FINDINGS: Mild stable cardiomegaly. Calcification of the mitral annulus. Lungs are clear. Diaphragms are smooth. Right shoulder arthroplasty. IMPRESSION: No acute process. ECG Rate (beats per minute): 69 Rhythm: normal sinus Findings: + 1st degree AV block and + prolonged QT (480ms) Supervising Physician Co-Signing Physician Notes Care coordinated with Juliana huerta PA-C. Agree with above note. Patient seen and examined. Please refer to her notes for full details. Vital signs reviewed. Physical exam: General exam: Alert and oriented. Not in acute distress. CVS: S1 and S2 heard, regular rate and rhythm, no murmurs. RS: Clear to auscultation, no wheezing or crackles. ABD: Soft, bowel sounds present, nontender, no distention. MANAGEMENT ADVISOR: Nonfocal. EXT: No edema, no erythema. Labs: Reviewed. Assessment and plan: Generalized weakness ambulatory dysfunction chest pain on and off serial ce and echo pt/ot possible placement ESRd on HD. CAd home emds Other diagnosis and plan of care as per []. Jassi martines MD. 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 transplanted heart: [place] heart Qualified Code(s): I25.10 - Atherosclerotic heart disease of [place] coronary artery without angina pectoris (4) Hyperlipidemia Hyperlipidemia type: unspecified Qualified Code(s): E78.5 - Hyperlipidemia, unspecified (5) Hypertension Hypertension type: essential hypertension Qualified Code(s): I10 - Essential (primary) hypertension
--- NOTE | 2018-05-04 22:14 | Emergency Department Note ---
Entered by Linsey Eisenberg acting as a scribe for History of Present Illness General Chief complaint: Weakness Stated complaint: WEAKNESS,CHEST PRESSURE,SHAKEY Source: patient Mode of arrival: ambulatory Limitations: no limitations History of Present Illness Provider complaint: weakness Onset (ago): day(s) (yesterday) Location: lower extremity Radiation: extremity (bilateral upper) Pain Consistency: + other (persistent) Quality: + other (weakness) Associated symptoms: + denies other symptoms (hematochezia), + chest pain, + shortness of breath and + other (diarrhea); no confusion, no fever/chills, no loss of appetite and no nausea/vomiting The patient is a 67 year old female who presents to the Emergency Room with complaints of a persistent weakness that began yesterday. The patient reports that she has been experiencing bilateral hand and leg weakness and explains she has had difficulty ambulating with her walker. She states that she has been shaky but denies any fevers. She also notes she has had some shortness of breath and chest pain. She describes the pain as a pressure explaining that it feels as if someone were sitting in her chest. She denies experiencing a loss of appetite or vomiting but reports she has been having diarrhea for some time. She states that she is being evaluated by her PCP for this. She also denies any hematochezia or confusion. Per , the patient has had difficulty getting what she wants to say out and notes this is similar to her history of mini-strokes. She reports that she is a dialysis patient. Home Medications Home Medications Medication Instructions Recorded Confirmed Type Novolin N NPH U-100 Insulin 22 unit SUBCUT PM 10/29/17 05/04/18 History Novolin N NPH U-100 Insulin 26 unit SUBCUT QAM 10/29/17 05/04/18 History Triphrocaps 1 cap PO DAILY 10/29/17 05/04/18 History aspirin 81 mg PO DAILY 10/29/17 05/04/18 History atorvastatin 40 mg PO DAILY 10/29/17 05/04/18 History carvedilol 12.5 mg PO BID 10/29/17 05/04/18 History cholecalciferol (vitamin D3) 5,000 unit PO DAILY 10/29/17 05/04/18 History [Vitamin D3] clopidogrel [Plavix] 75 mg PO DAILY 10/29/17 05/04/18 History gabapentin 300 mg PO DAILY 10/29/17 05/04/18 History magnesium oxide 400 mg PO DAILY 10/29/17 05/04/18 History meclizine 25 mg PO TID PRN 10/29/17 05/04/18 History nitroglycerin [Nitrostat] 0.4 mg SUBLINGUAL UD PRN 10/29/17 05/04/18 History ranitidine HCl 150 mg PO DAILY 10/29/17 05/04/18 History acetaminophen [Tylenol] 650 mg PO QID PRN 05/04/18 05/04/18 History amino ac-protein hydr-whey pro 30 ml PO BID 05/04/18 05/04/18 History [Liquacel] insulin regular human [Novolin R 15 - 30 unit SUBCUT UD 05/04/18 05/04/18 History Regular U-100 Insuln] sevelamer carbonate [Renvela] 3 tab PO TID 05/04/18 05/04/18 History Allergies Allergy/AdvReac Type Severity Reaction Status Date / Time codeine Allergy Intermediate hives Verified 07/03/17 12:49 pioglitazone Allergy Intermediate Rash/Fluid Unverified 07/03/17 12:49 retention morphine Allergy Mild HIVES Verified 07/03/17 12:49 Past Med/Surg History Medical History CAD (coronary artery disease) (Chronic) LAD x 1 11/2016 Diabetic peripheral neuropathy (Chronic) Diabetes mellitus with neuropathy (Chronic) AV fistula (Chronic) ESRD (end stage renal disease) on dialysis (Chronic) Hyperlipidemia (Chronic) Hypertension (Chronic) Interstitial lung disease (Chronic) Depression (Chronic) Anxiety (Chronic) KUSHAL (obstructive sleep apnea) (Chronic) "CPAP HS" GERD (gastroesophageal reflux disease) (Chronic) Diastolic CHF (Chronic) Hx of migraines (Chronic) Chronic anemia (Chronic) Diabetes mellitus, type 2 (Chronic) CKD (chronic kidney disease), stage IV (Chronic) Callus (Acute) Hallux abducto valgus, bilateral (Acute) Surgical History History of coronary artery stent placement (Chronic) History of (Chronic) History of cholecystectomy (Chronic) Status post laser trabeculoplasty of eye (Chronic) History of bilateral cataract extraction (Chronic) Hx of total knee replacement (Chronic) Hx of shoulder surgery (Chronic) Social History Preferred Language: Tamazight Communication Ability: Effective Asbestos Wire Finisher Required: No Beliefs That Will Affect Care: Gnosticist marital status: Current Living Situation: Spouse Other Information That Helps Us Care for You: No Feels Safe at Home: Yes Safety Concerns: Feels Safe At This Time Smoking Status: Never smoker Hx Alcohol Use: No Hx Substance Use: No Review of Systems See HPI for pertinent positives & negatives. and A total of 10 systems reviewed and were otherwise negative Physical Exam Vital Signs Vital Signs - 24 hr 05/04/18 14:37 05/04/18 15:05 05/04/18 15:07 Temperature 36.9 C Temperature Source Oral Sepsis Recent Fever Within 48 Hours No Sepsis New/Unexplained Change in Mental Status No Sepsis Action Taken by Nursing No Action Required Pulse Rate 79 Pulse Rate [Apical] 70 Pulse Rate from SpO2 Sensor Respiratory Rate 22 21 Respiratory Effort / Characteristics Non-Labored Spontaneous Respiratory Depth Normal Normal Respiratory Pattern Regular Blood Pressure 150/66 H Blood Pressure [Right Arm] 158/48 H Blood Pressure Mean 94 Blood Pressure Mean [Right Arm] 84 Pulse Oximetry 95 97 96 Oxygen Delivery Method Room Air Room Air Room Air Oxygen Flow Rate 05/04/18 15:20 05/04/18 15:22 05/04/18 15:30 Temperature Temperature Source Sepsis Recent Fever Within 48 Hours Sepsis New/Unexplained Change in Mental Status Sepsis Action Taken by Nursing Pulse Rate 71 71 Pulse Rate [Apical] Pulse Rate from SpO2 Sensor 72 71 Respiratory Rate 17 16 Respiratory Effort / Characteristics Respiratory Depth Respiratory Pattern Blood Pressure 158/48 H Blood Pressure [Right Arm] Blood Pressure Mean 84 Blood Pressure Mean [Right Arm] Pulse Oximetry 97 96 96 Oxygen Delivery Method Room Air Room Air Room Air Oxygen Flow Rate 05/04/18 16:00 05/04/18 16:21 05/04/18 16:31 Temperature Temperature Source Sepsis Recent Fever Within 48 Hours Sepsis New/Unexplained Change in Mental Status Sepsis Action Taken by Nursing Pulse Rate 70 71 69 Pulse Rate [Apical] Pulse Rate from SpO2 Sensor 70 69 Respiratory Rate 18 12 16 Respiratory Effort / Characteristics Respiratory Depth Respiratory Pattern Blood Pressure 188/70 H 192/72 H Blood Pressure [Right Arm] Blood Pressure Mean 109 112 Blood Pressure Mean [Right Arm] Pulse Oximetry 96 97 Oxygen Delivery Method Room Air Room Air Oxygen Flow Rate 05/04/18 17:01 05/04/18 17:31 05/04/18 18:01 Temperature Temperature Source Sepsis Recent Fever Within 48 Hours Sepsis New/Unexplained Change in Mental Status Sepsis Action Taken by Nursing Pulse Rate 69 73 73 Pulse Rate [Apical] Pulse Rate from SpO2 Sensor 69 74 Respiratory Rate 13 24 16 Respiratory Effort / Characteristics Respiratory Depth Respiratory Pattern Blood Pressure 197/84 H 183/62 H 201/69 H Blood Pressure [Right Arm] Blood Pressure Mean 121 102 113 Blood Pressure Mean [Right Arm] Pulse Oximetry 97 97 93 Oxygen Delivery Method Room Air Room Air Oxygen Flow Rate 05/04/18 18:31 05/04/18 19:01 05/04/18 19:13 Temperature Temperature Source Sepsis Recent Fever Within 48 Hours Sepsis New/Unexplained Change in Mental Status Sepsis Action Taken by Nursing Pulse Rate 72 73 73 Pulse Rate [Apical] 73 Pulse Rate from SpO2 Sensor 73 Respiratory Rate 16 18 20 Respiratory Effort / Characteristics Respiratory Depth Respiratory Pattern Blood Pressure 212/79 H 224/87 H 202/67 H Blood Pressure [Right Arm] 202/67 H Blood Pressure Mean 123 132 112 Blood Pressure Mean [Right Arm] 112 Pulse Oximetry 95 Oxygen Delivery Method Room Air Oxygen Flow Rate 05/04/18 19:31 05/04/18 20:00 05/04/18 20:01 Temperature Temperature Source Sepsis Recent Fever Within 48 Hours Sepsis New/Unexplained Change in Mental Status Sepsis Action Taken by Nursing Pulse Rate 73 74 74 Pulse Rate [Apical] Pulse Rate from SpO2 Sensor 73 72 Respiratory Rate 21 17 18 Respiratory Effort / Characteristics Respiratory Depth Respiratory Pattern Blood Pressure 173/69 H 183/57 H Blood Pressure [Right Arm] Blood Pressure Mean 103 99 Blood Pressure Mean [Right Arm] Pulse Oximetry 95 93 Oxygen Delivery Method Oxygen Flow Rate 05/04/18 20:21 05/04/18 20:23 05/04/18 20:30 Temperature Temperature Source Sepsis Recent Fever Within 48 Hours Sepsis New/Unexplained Change in Mental Status Sepsis Action Taken by Nursing Pulse Rate 73 Pulse Rate [Apical] Pulse Rate from SpO2 Sensor 73 Respiratory Rate 18 Respiratory Effort / Characteristics Respiratory Depth Respiratory Pattern Blood Pressure Blood Pressure [Right Arm] Blood Pressure Mean Blood Pressure Mean [Right Arm] Pulse Oximetry 88 L 98 99 Oxygen Delivery Method Room Air Nasal Cannula Oxygen Flow Rate 3 05/04/18 20:31 05/04/18 21:31 05/04/18 21:43 Temperature Temperature Source Sepsis Recent Fever Within 48 Hours Sepsis New/Unexplained Change in Mental Status Sepsis Action Taken by Nursing Pulse Rate 74 73 Pulse Rate [Apical] Pulse Rate from SpO2 Sensor 74 74 Respiratory Rate 16 Respiratory Effort / Characteristics Non-Labored Spontaneous Respiratory Depth Normal Respiratory Pattern Regular Blood Pressure 182/60 H 184/59 H Blood Pressure [Right Arm] Blood Pressure Mean 100 100 Blood Pressure Mean [Right Arm] Pulse Oximetry 100 99 Oxygen Delivery Method Nasal Cannula Nasal Cannula Oxygen Flow Rate 3 3 05/04/18 22:01 05/04/18 22:31 Temperature Temperature Source Sepsis Recent Fever Within 48 Hours Sepsis New/Unexplained Change in Mental Status Sepsis Action Taken by Nursing Pulse Rate 74 Pulse Rate [Apical] 77 Pulse Rate from SpO2 Sensor 74 Respiratory Rate 16 27 H Respiratory Effort / Characteristics Respiratory Depth Respiratory Pattern Blood Pressure 190/54 H Blood Pressure [Right Arm] 195/63 H Blood Pressure Mean 99 Blood Pressure Mean [Right Arm] 107 Pulse Oximetry 100 100 Oxygen Delivery Method Nasal Cannula Nasal Cannula Oxygen Flow Rate 3 3 Vital signs reviewed. General: Chronically ill-appearing, obese, in no significant distress. HEENT: No scleral icterus, PERRLA, neck supple. Atraumatic. Cardiovascular: Regular rate and rhythm, no extra sounds. Pulmonary: Clear to auscultation bilaterally, normal work of breathing. Abdomen: Soft, nontender, nondistended, positive bowel sounds. Musculoskeletal: Atraumatic, no peripheral edema. Neurologic: Patient awake alert and oriented x 3, equal strength in all 4 extremities. Cranial nerves 2 through 12 grossly intact. Skin: Warm, dry, no rash Course 1512: Past medical records reviewed. The patient was evaluated in room C12B, and a complete history and physical examination were performed. 2001: The patient failed ambulatory trial. 2017: I reviewed the patient's case with Juliana Luciano PA-C - [facility] Hospitalist. She will evaluate the patient for further management. Administered Medications Medical Decision Making Differential Diagnosis Differential Diagnosis includes but is not limited to: dehydration, stroke, anemia, hypoglycemia, hyponatremia, hypernatremia, urinary tract infection, pneumonia, bronchitis, sepsis, gastroenteritis, additional abdominal pathology, metabolic abnormalities and infections. Medical Records Attestation: I reviewed the patient's medical records. Home Medications Current Medication List: was personally reviewed by me Laboratory Data Attestation: I reviewed the patient's lab results. Result diagrams: 05/04/18 15:30 05/04/18 15:30 Lab Results 05/04/18 05/04/18 05/04/18 Range/Units 15:30 15:30 22:29 WBC 6.79 (4.8-10.8) K/uL RBC 3.01 L (4.2-5.4) M/uL Hgb 9.6 L (12.0-16.0) g/dL Hct 30.3 L (37-47) % MCV 100.7 H (80-100) fL MCH 31.9 (25-34) pg MCHC 31.7 L (32-36) g/dL RDW Std Deviation 66.0 H (36.4-46.3) fL RDW Coeff of Cori 18.1 H (11.5-14.5) % Plt Count 198 (130-400) K/uL MPV 9.9 (7.4-10.4) fL Immature Gran % (Auto) 0.4 % Neut % (Auto) 60.7 % Lymph % (Auto) 23.1 % Stafford % (Auto) 10.8 % Eos % (Auto) 4.9 % Baso % (Auto) 0.1 % Immature Gran # (Auto) 0.03 H (0.00-0.02) K/uL Neut # (Auto) 4.12 (1.4-6.5) K/uL Lymph # (Auto) 1.57 (1.2-3.4) K/uL Stafford # (Auto) 0.73 H (0.11-0.59) K/uL Eos # (Auto) 0.33 (0-0.5) K/uL Baso # (Auto) 0.01 (0-0.2) K/uL Sodium 138 (136-145) mmol/L Potassium 4.4 (3.5-5.1) mmol/L Chloride 101 (98-107) mmol/L Carbon Dioxide 32 (21-32) mmol/L Anion Gap 5.0 (3-11) BUN 55 H (7-18) mg/dl Creatinine 6.78 H* (0.6-1.2) mg/dl Est Cr Clr Drug Dosing 8.4 ml/min Est GFR ( Amer) 6.6 Est GFR (Non-Af Amer) 5.7 BUN/Creatinine Ratio 8.2 L (10-20) Glucose 96 (70-99) mg/dl Calcium 8.9 (8.5-10.1) mg/dl Magnesium 2.2 (1.8-2.4) mg/dl Total Bilirubin 0.4 (0.2-1) mg/dl AST 15 (15-37) U/L ALT 18 (12-78) U/L Alkaline Phosphatase 66 (45-117) U/L Troponin I 0.016 < 0.015 (0-0.045) ng/ml Total Protein 6.6 (6.4-8.2) gm/dl Albumin 2.8 L (3.4-5.0) gm/dl Globulin 3.8 (2.5-4.0) gm/dl Albumin/Globulin Ratio 0.7 L (0.9-2) TSH 2.340 (0.300-4.500) uIu/ml Imaging Data Radiologist's Impression: Radiology results as stated below per my review and t he radiologist's interpretation: XR chest 1V portable CLINICAL HISTORY: weakness dyspnea COMPARISON STUDY: 10/28/2017 FINDINGS: Mild stable cardiomegaly. Calcification of the mitral annulus. Lungs are clear. Diaphragms are smooth. Right shoulder arthroplasty. IMPRESSION: No acute process. The above report was generated using voice recognition software. It may contain grammatical, syntax or spelling errors. Electronically signed by: Ismael Hull M.D. 05/04/2018 3:[address] NON[address]AST CT DOSE: 729.78 mGycm HISTORY: Altered mental status TECHNIQUE: Multiaxial CT images of the head were performed without the use of intravenous contrast. Automated exposure control was utilized for this study. A dose lowering technique was utilized adhering to the principles of ALARA. Comparison: Head CT 01/07/2017. Findings: A 1.4 cm retention cyst within the left maxillary sinus. Small fluid levels within the sphenoid sinuses. The mastoid air cells are clear. The calvarium and skull base are intact. There is no mass, hematoma, midline shift, acute infarct. White matter hypodensity is nonspecific but suggestive of micro vascular ischemic change. The ventricles and sulci demonstrate mild age-related involutional changes. Old small right posterior parietal, posterior occipital, right basal ganglia, and right thalamic infarcts. This remains unchanged. Impression: 1. No acute intracranial abnormality. 2. 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 3. Mild sinus disease as described above. Electronically signed by: Manny Reza M.D. 05/04/2018 4:22 PM ECG Data Attestation: I personally reviewed and interpreted this ECG as follows: Indication: weakness Rate (beats per minute): 69 Rhythm: sinus rhythm Findings: + 1st degree AV block; no acute ischemic change and no ectopy Blood Pressure Blood Pressure Findings: Elevated blood pressure Blood Pressure Disposition: further management by hospitalist MDM Narrative This patient was evaluated and appeared to be in no significant distress. IV access was obtained and lab work was drawn. The patient was placed on the quality assurance monitor final. EKG reveals a sinus rhythm with a first-degree AV block. Laboratory work is fairly reassuring. Patient's creatinine is elevated however she has end-stage renal disease on dialysis. Head CT is negative. Patient states she does not make urine. Ambulatory trial was performed and patient had great difficulty. Nursing staff states she was unsteady and only able to amb ulate approximately 10 steps. The rehabilitation center was consulted and they are full, unable to accept any referrals. Patient is not felt to be safe at home. She was discussed with the hospitalist service and will be evaluated for further management. Patient and family are aware of this plan and agree. Impression & Plan Generalized weakness, End stage renal disease, Dialysis patient Discharge Plan Visit Data *Final* Discharge Date/Time: 05/04/18 22:34 Chief Complaint: Weakness Stated Complaint: WEAKNESS,CHEST PRESSURE,SHAKEY ED Provider: Amy Nuñez Discharge Problem: Generalized weakness, End stage renal disease, Dialysis patient Patient Disposition: Admitted As Inpatient Discharge Instructions Interventions: ED Discharge Assessment Last Done: 05/04/18 22:34 The scribe's documentation has been prepared under my direction and personally reviewed by me in its entirety. I confirm that the note above accurately reflects all work, treatment, procedures, and medical decision making performed by me.
[2018-05-04] MEDS ORDERED: GLUCOSE 40% GEL 15 GM TUBE PO PRN (23:01)
[2018-05-04] MEDS ORDERED: GLUCOSE 10 TABS/TUBE PO PRN (23:01)
[2018-05-04] MEDS ORDERED: CARBOHYDRATES FOR HYPOGLYCEMIA PO PRN (23:01)
[2018-05-04] MEDS ORDERED: MECLIZINE HCL 25 MG TAB PO PRN (23:01)
[2018-05-04] MEDS ORDERED: GLUCAGON FOR INJ 1 MG VIAL SQ PRN (23:01)
[2018-05-04] MEDS ORDERED: AMINO AC PROTEIN HYDR WHEY PRO PO SCH (23:01)
[2018-05-04] MEDS ORDERED: DEXTROSE 50% 50 ML SYRINGE IV PRN (23:01)
[2018-05-05] MEDS ORDERED: PHARMACY GLYCEMIC MGMT CONSULT PRN (00:37)
[2018-05-05] MEDS ORDERED: INSULIN GLARGINE SOLOSTAR 100 UNITS/ML 3 ML PEN SC ONE (01:00)
[2018-05-05] MEDS: CARVEDILOL 12.5 MG TAB PO SCH ×3 (01:17→20:50)
[2018-05-05] MEDS: INSULIN ASPART 100 UNITS/ML 3 ML PEN SC SCH ×5 (01:19→20:51)
[2018-05-05 06:10] LABS: Hematocrit (blood only) 27.1 % (37-47); Hemoglobin 8.5 g/dL (12.0-16.0); Mean Corpuscular Hgb Conc 31.4 g/dL (32-36); Mean Corpuscular Volume 99.3 fL (80-100); Mean Platelet Volume 9.4 fL (7.4-10.4); Nucleated RBC # (auto) 0.02 K/uL (0-0); Nucleated RBC % (auto) 0.3 %; Platelet Count 210 K/uL (130-400); RDW Coefficient of Variation 18.2 % (11.5-14.5); RDW Standard Deviation 65.6 fL (36.4-46.3); Red Blood Count 2.73 M/uL (4.2-5.4); White Blood Count 7.15 K/uL (4.8-10.8)
[2018-05-05 06:26] LABS: Prothrombin Time 10.6 Seconds (9.0-12.0)
[2018-05-05 06:37] LABS: Estimated Average Glucose 120 mg/dl; Hemoglobin A1C 5.8 % (4.5-5.6)
[2018-05-05 06:58] LABS: Blood Urea Nitrogen 62 mg/dl (7-18); Calcium 8.9 mg/dl (8.5-10.1); Carbon Dioxide 27 mmol/L (21-32); Chloride 104 mmol/L (98-107); Creatinine Clr Calc Pharmacy 7.3 ml/min; Est GFR (African American) 5.5; Est GFR (Non-African American) 4.8; Glucose 117 mg/dl (70-99); Potassium 4.9 mmol/L (3.5-5.1); Sodium 139 mmol/L (136-145); Troponin I < 0.015 ng/ml (0-0.045)
[2018-05-05] MEDS ORDERED: PERFLUTREN LIPID MICROSPHERE (DEFINITY) IV ONE (07:14)
[2018-05-05] MEDS: CLOPIDOGREL BISULFATE 75 MG TAB PO SCH (08:08)
[2018-05-05] MEDS: ATORVASTATIN 40 MG TAB PO SCH (08:08)
[2018-05-05] MEDS: NEPHROCAPS PO SCH (08:08)
[2018-05-05] MEDS: SEVELAMER HCL 800 MG TABLET PO SCH ×3 (08:08→18:25)
[2018-05-05] MEDS: GABAPENTIN 300 MG CAP PO SCH (08:08)
[2018-05-05] MEDS: ASPIRIN 81 MG ECTAB PO SCH (08:08)
[2018-05-05] MEDS: MAGNESIUM OXIDE 400 MG TAB PO SCH (08:08)
[2018-05-05] MEDS: CHOLECALCIFEROL 1,000 UNITS TAB PO SCH (08:09)
[2018-05-05] MEDS ORDERED: EPOETIN ALFA 10,000 UNITS/ML VIAL IV ONE (08:49)
[2018-05-05] MEDS ORDERED: SODIUM CHLORIDE 0.9% 1000ML 1,000 ML IV PRN (08:49)
[2018-05-05] MEDS: INSULIN GLARGINE SOLOSTAR 100 UNITS/ML 3 ML PEN SC SCH ×2 (09:24→20:50)
[2018-05-05] MEDS: HEPARIN SOD 5,000 UNIT/0.5 ML VIAL SQ SCH ×3 (09:25→20:54)
--- NOTE | 2018-05-05 10:47 | Pharmacy Report ---
Pharmacy Glycemic Short Note 2 - Date of Service May 05, 2018 - Glycemic Short BSG Results (Last 24 hours): 05/04/18 05/05/18 05/05/18 15:30 01:15 05:36 Glucose 96 117 H POC Glucose 94 05/05/18 07:29 Glucose POC Glucose 115 H OUTPATIENT ANTIDIABETIC REGIMEN: * NPH 26 units qAM, 22 units qPM * Novolin-R sliding scale (15-30 units with meals) * LmA5r=6.8% ASSESSMENT: * Pt appears to be a well controlled type 2 diabetic with ESRD, HLD, HTN, and history of CVA. She is on HD MWF. * Patient's A1c = 5.8% today. * However, this result is likely somewhat unreliable in ESRD patients d/t interactions between the A1c analyzing technique and high levels of urea in ESRD, reduced RBC life span, iron deficiency anemia, and EPO administration. HbA1c > 7.5% in ESRD patient may overestimate the extent of hyperglycemia in ESRD patients. * Admitted 05/04 for weakness and ambulatory dysfunction. * FBS of 117 this morning within goal range. * Based on past glycemic management data, will initiate basal bolus regimen. * Pt not on steroids or antibiotics at this time. PLAN FOR INPATIENT GLYCEMIC CONTROL: * Hold outpatient oral diabetes medications * Basal insulin * Lantus 15 units SQ BID * Bolus insulin * NovoLog per scale ACHS or Q6hrs while NPO * Goal Range: Low 110 mg/dL - High 140 mg/dL * Correction Factor: 25 mg/dL/unit * Nutritional / Prandial insulin per carb ratio of 1 unit per 8 grams CHO consumed PLAN FOR DISCHARGE: * Pt will most likely be able to resume home regimen upon discharge.
--- NOTE | 2018-05-05 13:54 | Nephrology Consultation ---
Date of Consultation May 05, 2018 Assessment & Plan (1) ESRD (end stage renal disease) on dialysis: Patient with ESRD on HD MWF. Last HD was on Thursday. She is now admitted with weakness. Elcetrolytes are stable. Will dialyse her today for 4hrs, QB 400, QD 600 and target UF 2.5 litres. next HD will be thursday (2) Hypertension: Her BP is controlled on current regimen which will continue. Hold Coreg in the morning pre HD (3) Secondary hyperparathyroidism (of renal origin): Patient should take renvela 3 tabs tid with meals and 1 tab with snacks and vitamin D daily. (4) Anemia, chronic renal failure: She will get Epogen 10,000 units with dialysis History of Present Illness Reason for Consultation: ESRD complicated by weakness Requesting Physician: Sinai Collier MD Attending Physician: Sinai Collier MD History of Present Illness This is a 67-year-old female who has a significant past medical history of CAD with history of stent to LAD in 2017, end-stage renal disease on hemodialysis MWF, HTN, HLD, KUSHAL on CPAP, chronic diastolic CHF, T2DM with neuropathy, retinopathy and nephropathy, history of CVA/TIA, and interstitial lung disease who was admitted on 05/04/18 with weakness and unable to ambulate. She is on HD MWF under care of Dr. Kessler. She has been on HD since October 2017. last HD was thursday. She reports problems with hypotension during HD. She denies any SOB. No vomiting or diarrheoa. her BP was high on admission but now controlled. I have been asked to evaluate her regarding ESRD and provide dialysis support. Allergies Allergy/AdvReac Type Severity Reaction Status Date / Time codeine Allergy Intermediate hives Verified 07/03/17 12:49 pioglitazone Allergy Intermediate Rash/Fluid Unverified 07/03/17 12:49 retention morphine Allergy Mild HIVES Verified 07/03/17 12:49 Home Medications Home Medications Medication Instructions Recorded Confirmed Type Novolin N NPH U-100 Insulin 22 unit SUBCUT PM 10/29/17 05/04/18 History Novolin N NPH U-100 Insulin 26 unit SUBCUT QAM 10/29/17 05/04/18 History Triphrocaps 1 cap PO DAILY 10/29/17 05/04/18 History aspirin 81 mg PO DAILY 10/29/17 05/04/18 History atorvastatin 40 mg PO DAILY 10/29/17 05/04/18 History carvedilol 12.5 mg PO BID 10/29/17 05/04/18 History cholecalciferol (vitamin D3) 5,000 unit PO DAILY 10/29/17 05/04/18 History [Vitamin D3] clopidogrel [Plavix] 75 mg PO DAILY 10/29/17 05/04/18 History gabapentin 300 mg PO DAILY 10/29/17 05/04/18 History magnesium oxide 400 mg PO DAILY 10/29/17 05/04/18 History meclizine 25 mg PO TID PRN 10/29/17 05/04/18 History nitroglycerin [Nitrostat] 0.4 mg SUBLINGUAL UD PRN 10/29/17 05/04/18 History ranitidine HCl 150 mg PO DAILY 10/29/17 05/04/18 History acetaminophen [Tylenol] 650 mg PO QID PRN 05/04/18 05/04/18 History amino ac-protein hydr-whey pro 30 ml PO BID 05/04/18 05/04/18 History [Liquacel] insulin regular human [Novolin R 15 - 30 unit SUBCUT UD 05/04/18 05/04/18 History Regular U-100 Insuln] sevelamer carbonate [Renvela] 3 tab PO TID 05/04/18 05/04/18 History Patient History Medical History Anemia, chronic renal failure Secondary hyperparathyroidism (of renal origin) CAD (coronary artery disease) (Chronic) LAD x 1 11/2016 Diabetic peripheral neuropathy (Chronic) Diabetes mellitus with neuropathy (Chronic) AV fistula (Chronic) ESRD (end stage renal disease) on dialysis (Chronic) Hyperlipidemia (Chronic) Hypertension (Chronic) Interstitial lung disease (Chronic) Depression (Chronic) Anxiety (Chronic) KUSHAL (obstructive sleep apnea) (Chronic) "CPAP HS" GERD (gastroesophageal reflux disease) (Chronic) Diastolic CHF (Chronic) Hx of migraines (Chronic) Chronic anemia (Chronic) Diabetes mellitus, type 2 (Chronic) CKD (chronic kidney disease), stage IV (Chronic) Callus (Acute) Hallux abducto valgus, bilateral (Acute) Surgical History History of coronary artery stent placement (Chronic) History of (Chronic) History of cholecystectomy (Chronic) Status post laser trabeculoplasty of eye (Chronic) History of bilateral cataract extraction (Chronic) Hx of total knee replacement (Chronic) Hx of shoulder surgery (Chronic) Social History Preferred Language: Nepalese Communication Ability: Effective Neurophysiologist Required: No Beliefs That Will Affect Care: Scientology marital status: Current Living Situation: Spouse Other Information That Helps Us Care for You: No Feels Safe at Home: Yes Safety Concerns: Feels Safe At This Time Smoking Status: Never smoker Hx Alcohol Use: No Hx Substance Use: No Review of Systems Constitutional: + weakness; no fever and no anorexia Eyes: no problem reported Ear, Nose, Mouth, Throat: no problem reported Cardiovascular: no chest pain with activity, no dyspnea at rest, no paroxysmal nocturnal dyspnea and no edema Gastrointestinal: no nausea, no vomiting and no change in stools Integumentary: no rash Neurologic: + unsteadiness, + generalized weakness and + dizziness; no tremor(s) Endocrine: + fatigue Physical Exam Vital Signs (Past 24 Hours): Last Vital Signs Temp 37.2 C 05/05/18 09:37 Pulse 66 05/05/18 11:40 Resp 18 05/05/18 08:07 BP 147/56 H 05/05/18 11:40 Pulse Ox 96 05/05/18 08:07 Physical Exam: General exam: Appears comfortable, no acute distress HEENT: Pupils are equal and reactive to light Neck: No JVD, neck is supple trachea is midline Respiratory system: Clear breath sounds bilaterally. Gastrointestinal: Abdomen is soft, non distended, non tender, bowel sounds are present CVS: Regular rate and rhythm. No murmurs, rubs or gallops Musculoskeletal: No joint or muscle tenderness Extremities: Non tender, no edema, peripheral pulses are present Neuro: Oriented, no tremors, no focal neurological deficits Skin: No rashes Access: Left UA AVF, good bruit Results & Data Laboratory Results k 4.9, cr 7.8 (1) Hypertension Hypertension type: essential hypertension Qualified Code(s): I10 - Essential (primary) hypertension
--- NOTE | 2018-05-05 14:08 | Hospitalist Progress Note ---
Date of Service May 05, 2018 Assessment & Plan (1) Ambulatory dysfunction: (2) Generalized weakness: This is a 67-year-old female who has a significant past medical history of CAD with history of stent to LAD in 2017, end-stage renal disease on hemodialysis MWF, HTN, HLD, KUSHAL on CPAP, chronic diastolic CHF, T2DM with neuropathy, retinopathy and nephropathy, history of CVA/TIA, interstitial lung disease who presents to [facility] ED secondary to difficulty ambulating and weakness x1 day. -admit to med/surg telemetry -check urinalysis given pt hx of UTI to r/o infectious process-pending -Obtain echocardiogram-pending -trend troponin to rule out acute cardiac process-negative for any ACS -consult nephrology for HD-appreciate input -consult PT/OT to eval for rehab (3) ESRD (end stage renal disease) on dialysis: -HD MWF -consult nephrology (4) CAD (coronary artery disease): -no chest pain/sob but does complain of chest heaviness and chronic MENDOZA -initial troponin negative, will trend q6hr x 2 -repeat echocardiogram -continue ASA, Statin, plavix, coreg -No acute cardiac symptoms (5) Diabetes mellitus, type 2: -insulin dependent, takes novolin R and N at home -will consult pharmacy for glycemic management (6) Diastolic CHF: -EF 2017 55-60%, failed stress echo at time -underwent left heart cath and received 1 stent to LAD -continue ASA, statin, plavix, coreg -daily weights, strict I and O -Continue hemodialysis -Restrict oral fluid to 1200 mls daily (7) Hypertension: -blood pressure uncontrolled while in ED, last -continue coreg, does not appear to be on any other hypertensives per -will add hydralazine 25mg po q6h prn -monitor and titrate accordingly (8) Hyperlipidemia: -continue statin (9) History of CVA (cerebrovascular accident): -Hx of right sided thalamic, basal ganglia, posterior parietal and occipital infarct -continue ASA, statin, plavix (10) Chronic anemia: -Hemoglobin and hematocrit stable at 9.6 and 30.3 -Receives Procrit -Monitor CBC (11) Interstitial lung disease: -no acute exac -encourage incentive spirometry (12) KUSHAL (obstructive sleep apnea): -CPAP at HS (13) GERD (gastroesophageal reflux disease): -continue ranitidine (14) Prolonged Q-T interval on ECG: -QTC 480ms on ecg -monitor and avoid qt prolonging agents if possible (15) DVT prophylaxis: -heparin 5,000 units SQ q8hrs Disposition: Likely d/c to rehab given ambulatory dysfunction, consult case management Follow up: PCP Dr. Golden upon discharge and continue with HD MWF Subjective 05/05 The patient was seen and examined in medical telemetry unit This is a 67-year-old female who has a significant past medical history of CAD with history of stent to LAD in 2017, end-stage renal disease on hemodialysis MWF, HTN, HLD, KUSHAL on CPAP, chronic diastolic CHF, T2DM with neuropathy, retinopathy and nephropathy, history of CVA/TIA, interstitial lung disease who presents to [facility] ED secondary to difficulty ambulating and weakness x1 day. She is a status post hemodialysis today Feels a lot better Denies any chest tightness and/or shortness of breath Constitutional: + weakness; no fever and no anorexia Neurologic: + unsteadiness, + generalized weakness and + dizziness; no tremor(s) Endocrine: + fatigue Physical Exam Vital Signs (Past 24 Hours): Last Vital Signs Temp 37.2 C 05/05/18 09:37 Pulse 66 05/05/18 11:40 Resp 18 05/05/18 08:07 BP 147/56 H 05/05/18 11:40 Pulse Ox 96 05/05/18 08:07 Physical Exam: Lying in bed comfortably Constitutional: WD/WN, vitals as above Eyes: PERRL, conjunctivae normal, anicteric sclerae ENMT: external ear and nose normal, oropharynx normal Neck: trachea midline, no thyromegaly Respiratory: normal respiratory effort Auscultation: + diminished lung sounds Cardiovascular: Rate/Rhythm: regular rate and regular rhythm Heart Sounds: normal S1 and normal S2 Gastrointestinal (Abdomen): Inspection/Auscultation: abdomen normal to inspection and normal bowel sounds Percussion/Palpation: abdomen soft; abdome n nontender Neurologic: Alert, awake and oriented x3. Generally weak and no focal neuro deficit Results & Data Laboratory Results Short CBC 05/04/18 05/05/18 Range/Units 15:30 05:36 WBC 6.79 7.15 (4.8-10.8) K/uL Hgb 9.6 L 8.5 L (12.0-16.0) g/dL Hct 30.3 L 27.1 L (37-47) % Plt Count 198 210 (130-400) K/uL BMP 05/04/18 05/05/18 15:30 05:36 Sodium 138 139 Potassium 4.4 4.9 Chloride 101 104 Carbon Dioxide 32 27 BUN 55 H 62 H Creatinine 6.78 H* 7.87 H* D Glucose 96 117 H Calcium 8.9 8.9 Cardiac Enzymes 05/04/18 05/04/18 05/05/18 Range/Units 15:30 22:29 05:36 Troponin I 0.016 < 0.015 < 0.015 (0-0.045) ng/ml Liver Function 05/04/18 Range/Units 15:30 Total Bilirubin 0.4 (0.2-1) mg/dl AST 15 (15-37) U/L ALT 18 (12-78) U/L Alkaline Phosphatase 66 (45-117) U/L Albumin 2.8 L (3.4-5.0) gm/dl Medications Administered Current Inpatient Medications Acetaminophen (Tylenol) 650 mg PO Q4H PRN PRN Reason: Pain or Fever Stop: 06/03/18 23:00 Aspirin (Ecotrin Ectab) 81 mg PO DAILY [facility] Stop: 06/04/18 08:59 Last Admin: 05/05/18 08:08 Dose: 81 mg Documented by: Atorvastatin Calcium (Lipitor) 40 mg PO DAILY [facility] Stop: 06/04/18 08:59 Last Admin: 05/05/18 08:08 Dose: 40 mg Documented by: Carvedilol (Coreg) 12.5 mg PO BID [facility]O Stop: 06/03/18 23:00 Last Admin: 05/05/18 08:09 Dose: 12.5 mg Documented by: Clopidogrel Bisulfate (Plavix) 75 mg PO DAILY [facility] Stop: 06/04/18 08:59 Last Admin: 05/05/18 08:08 Dose: 75 mg Documented by: Dextrose (Dextrose 50%) 25 - 50 ml IV UD PRN; Protocol PRN Reason: Hypoglycemia Protocol Stop: 06/03/18 23:00 Gabapentin (Neurontin) 300 mg PO DAILY [facility] Stop: 06/04/18 08:59 Last Admin: 05/05/18 08:08 Dose: 300 mg Documented by: Glucagon (Glucagen) 1 mg SQ UD PRN; Protocol PRN Reason: Hypoglycemia Protocol Stop: 06/03/18 23:00 Glucose (Glucose 40%) 15 - 30 gm PO UD PRN; Protocol PRN Reason: Hypoglycemia Protocol Stop: 06/03/18 23:00 Glucose (Dex4 Glucose) 4 - 8 tabs PO UD PRN; Protocol PRN Reason: Hypoglycemia Protocol Stop: 06/03/18 23:00 Heparin Sodium (Porcine) (Heparin Sodium (Porcine)) 5,000 units SQ Q8 [facility]O Stop: 06/04/18 07:59 Last Admin: 05/05/18 14:02 Dose: Not Given Documented by: Hydralazine HCl (Apresoline) 25 mg PO Q6H PRN PRN Reason: Hypertension Stop: 06/03/18 23:00 Last Admin: 05/05/18 01:18 Dose: 25 mg Documented by: Sodium Chloride (Nss 1000ml) 1,000 mls @ 0 mls/hr IV .Q0M PRN PRN Reason: For Hemodialysis Use ONLY Stop: 05/05/18 14:48 Insulin Aspart (Novolog Flexpen) 0 units SC ACHS [facility] Stop: 06/04/18 00:59 Last Admin: 05/05/18 09:24 Dose: 4 units Documented by: Insulin Glargine (Lantus Solostar Pen) 15 units SC BID [facility]; Protocol Stop: 06/04/18 08:59 Last Admin: 05/05/18 09:24 Dose: 15 units Documented by: Magnesium Oxide (Mag-Ox) 400 mg PO DAILY [facility] Stop: 06/04/18 08:59 Last Admin: 05/05/18 08:08 Dose: 400 mg Documented by: Meclizine HCl (Antivert) 25 mg PO TID PRN PRN Reason: Vertigo Stop: 06/03/18 23:00 Miscellaneous (Carbohydrates For Hypoglycemia) 15 - 30 gm PO UD PRN PRN Reason: Hypoglycemia Treatment Stop: 06/03/18 23:00 Miscellaneous Information (Consult Glycemic Management Pharmacy) 1 ea N/A UD PRN; Protocol PRN Reason: Consult Stop: 06/04/18 00:36 Ranitidine HCl (Zantac) 150 mg PO DAILY [facility] Stop: 06/04/18 08:59 Last Admin: 03/27/19 08:08 Dose: 150 mg Documented by: Sevelamer HCl (Renagel) 2,400 mg PO TIDM [facility] Stop: 06/04/18 07:59 Last Admin: 05/05/18 08:08 Dose: 2,400 mg Documented by: Vitamin B Complex/Folic Acid (Nephrocaps) 1 cap PO DAILY [facility] Stop: 06/04/18 08:59 Last Admin: 05/05/18 08:08 Dose: 1 cap Documented by: Vitamin D (Vitamin D3) 5,000 units PO DAILY [facility] Stop: 06/04/18 08:59 Last Admin: 05/05/18 08:09 Dose: 5,000 units Documented by: (1) CAD (coronary artery disease) Coronary Disease-Associated Artery/Lesion type: [place] artery [place] vs. 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 use: with local company intermodal truck driver use Diabetes mellitus complication status: with kidney complications Diabetes mellitus complication detail: with chronic kidney disease Chronic kidney disease stage: on chronic dialysis Qualified Code(s): E11.22 - Type 2 diabetes mellitus with diabetic chronic kidney disease; N18.6 - End stage renal disease; Z79.4 - 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
[2018-05-05] MEDS: ACETAMINOPHEN 325 MG TAB PO PRN (21:00)
[2018-05-06] MEDS: HEPARIN SOD 5,000 UNIT/0.5 ML VIAL SQ SCH ×3 (06:33→20:14)
[2018-05-06] MEDS ORDERED: INSULIN GLARGINE SOLOSTAR 100 UNITS/ML 3 ML PEN SC ONE (09:00)
[2018-05-06] MEDS: INSULIN ASPART 100 UNITS/ML 3 ML PEN SC SCH ×4 (09:52→20:14)
[2018-05-06] MEDS: SEVELAMER HCL 800 MG TABLET PO SCH ×3 (09:53→18:20)
[2018-05-06] MEDS: CARVEDILOL 12.5 MG TAB PO SCH ×2 (09:53→20:12)
[2018-05-06] MEDS: ASPIRIN 81 MG ECTAB PO SCH (09:54)
[2018-05-06] MEDS: NEPHROCAPS PO SCH (09:55)
[2018-05-06] MEDS: MAGNESIUM OXIDE 400 MG TAB PO SCH (09:55)
[2018-05-06] MEDS: CHOLECALCIFEROL 1,000 UNITS TAB PO SCH (09:55)
[2018-05-06] MEDS: ATORVASTATIN 40 MG TAB PO SCH (09:55)
[2018-05-06] MEDS: GABAPENTIN 300 MG CAP PO SCH (09:56)
[2018-05-06] MEDS: CLOPIDOGREL BISULFATE 75 MG TAB PO SCH (09:56)
--- NOTE | 2018-05-06 11:36 | Nephrology Progress Note ---
Date of Service May 06, 2018 Assessment & Plan (1) ESRD (end stage renal disease) on dialysis: Patient with ESRD on HD MWF. Tolerated HD yesterday for net loss of 2.5litres. Elcetrolytes are stable. Will dialyse her tomorrow for 4hrs, QB 400, QD 600 and target UF 2.5 litres. (2) Hypertension: Her BP is controlled on current regimen which will continue. Hold Coreg in the morning pre HD (3) Secondary hyperparathyroidism (of renal origin): Patient should take renvela 3 tabs tid with meals and 1 tab with snacks and vitamin D daily. (4) Anemia, chronic renal failure: She will get Epogen 10,000 units with dialysis Subjective ESRD patient seen in follow up. She had HD yesterday for net loss of 2.5litres. No SOB today. She is complaining of right shoulder pain. She was able to go to commode. Not walked yet Review of Systems All systems reviewed & are unremarkable except as noted in HPI & below Physical Exam Vital Signs (Past 24 Hours): Last Vital Signs Temp 36.9 C 05/06/18 07:30 Pulse 75 05/06/18 07:30 Resp 18 05/06/18 07:30 BP 179/65 H 05/06/18 07:30 Pulse Ox 92 05/06/18 07:30 Physical Exam: General exam: Appears comfortable, no acute distress HEENT: Pupils are equal and reactive to light Neck: No JVD, neck is supple trachea is midline Respiratory system: Clear breath sounds bilaterally. Gastrointestinal: Abdomen is soft, non distended, non tender, bowel sounds are present CVS: Regular rate and rhythm. No murmurs, rubs or gallops Musculoskeletal: No joint or muscle tenderness. Extremities: Non tender, no edema, peripheral pulses are present Neuro: Oriented, no tremors, no focal neurological deficits Skin: No rashes Access: left UA AVF good bruit Results & Data Laboratory Results reviewed (1) Hypertension Hypertension type: essential hypertension Qualified Code(s): I10 - Essential (primary) hypertension
--- NOTE | 2018-05-06 12:43 | Pharmacy Report ---
Pharmacy Glycemic Short Note 2 - Date of Service May 06, 2018 - Glycemic Short BSG Results (Last 24 hours): 05/05/18 05/05/18 05/05/18 14:05 16:18 20:25 POC Glucose 128 H 228 H 218 H 05/06/18 05/06/18 07:46 12:01 POC Glucose 175 H 205 H OUTPATIENT ANTIDIABETIC REGIMEN: * NPH 26 units qAM, 22 units qPM * Novolin-R sliding scale (15-30 units with meals) * TzX0j=9.8% ASSESSMENT: 05/06: * Patient received 47 units of insulin yesterday, 30 units of which were basal (Lantus). * Fasting BSG this AM = 175 which is higher than yesterday. Also lunch BSG today was 205. * Increased Lantus for better fasting BSG and tightened Novolog CF and CR as well. * Patient has a history of admissions here, so current orders were also based off of what has worked previously for her. PLAN FOR INPATIENT GLYCEMIC CONTROL: * Hold outpatient oral diabetes medications * Basal insulin: increased * Lantus 20 units SQ BID * Bolus insulin: tightened CF & CR * NovoLog per scale ACHS or Q6hrs while NPO * Goal Range: Low 110 mg/dL - High 140 mg/dL * Correction Factor: 20 mg/dL/unit * Nutritional / Prandial insulin per carb ratio of 1 unit per 6 grams CHO consumed PLAN FOR DISCHARGE: * Patient can most likely be able to resume home regimen upon discharge since her HbA1c of 5.8% indicates well-controlled diabetes.
--- NOTE | 2018-05-06 13:54 | Hospitalist Progress Note ---
Date of Service May 06, 2018 Assessment & Plan (1) Ambulatory dysfunction: (2) Generalized weakness: This is a 67-year-old female who has a significant past medical history of CAD with history of stent to LAD in 2017, end-stage renal disease on hemodialysis MWF, HTN, HLD, KUSHAL on CPAP, chronic diastolic CHF, T2DM with neuropathy, retinopathy and nephropathy, history of CVA/TIA, interstitial lung disease who presents to [facility] ED secondary to difficulty ambulating and weakness x1 day. -admit to med/surg telemetry -check urinalysis given pt hx of UTI to r/o infectious process-pending -Obtain echocardiogram-pending -trend troponin to rule out acute cardiac process-negative for any ACS -consult nephrology for HD-appreciate input -consult PT/OT to eval for rehab -Remains stable and getting stronger (3) ESRD (end stage renal disease) on dialysis: -HD MWF -consult nephrology (4) CAD (coronary artery disease): -no chest pain/sob but does complain of chest heaviness and chronic MENDOZA -initial troponin negative, will trend q6hr x 2 -repeat echocardiogram -continue ASA, Statin, plavix, coreg -No acute cardiac symptoms (5) Diabetes mellitus, type 2: -insulin dependent, takes novolin R and N at home -will consult pharmacy for glycemic management -Blood sugar is controlled (6) Diastolic CHF: -EF 2017 55-60%, failed stress echo at time -underwent left heart cath and received 1 stent to LAD -continue ASA, statin, plavix, coreg -daily weights, strict I and O -Continue hemodialysis -Restrict oral fluid to 1200 mls daily (7) Hypertension: -blood pressure uncontrolled while in ED, last -continue coreg, does not appear to be on any other hypertensives per -will add hydralazine 25mg po q6h prn -monitor and titrate accordingly (8) Hyperlipidemia: -continue statin (9) History of CVA (cerebrovascular accident): -Hx of right sided thalamic, basal ganglia, posterior parietal and occipital infarct -continue ASA, statin, plavix (10) Chronic anemia: -Hemoglobin and hematocrit stable at 9.6 and 30.3 -Receives Procrit -Monitor CBC -Hemoglobin is 8.5 today 04/28 (11) Interstitial lung disease: -no acute exac -encourage incentive spirometry (12) KUSHAL (obstructive sleep apnea): -CPAP at HS (13) GERD (gastroesophageal reflux disease): -continue ranitidine (14) Prolonged Q-T interval on ECG: -QTC 480ms on ecg -monitor and avoid qt prolonging agents if possible (15) DVT prophylaxis: -heparin 5,000 units SQ q8hrs Disposition: Likely d/c to rehab given ambulatory dysfunction, consult case management Follow up: PCP Dr. Goledn upon discharge and continue with HD MWF Awaiting placement Subjective 05/05 The patient was seen and examined in medical telemetry unit This is a 67-year-old female who has a significant past medical history of CAD with history of stent to LAD in 2017, end-stage renal disease on hemodialysis MWF, HTN, HLD, KUSHAL on CPAP, chronic diastolic CHF, T2DM with neuropathy, retinopathy and nephropathy, history of CVA/TIA, interstitial lung disease who presents to [facility] ED secondary to difficulty ambulating and weakness x1 day. She is a status post hemodialysis today Feels a lot better Denies any chest tightness and/or shortness of breath 05/06 She has been feeling a lot better today She is out of bed on a chair and feels stronger She would like physical therapy Likely to go for rehab Constitutional: + weakness; no fever and no anorexia Neurologic: + unsteadiness, + generalized weakness and + dizziness; no tremor(s) Endocrine: + fatigue Physical Exam Vital Signs (Past 24 Hours): Last Vital Signs Temp 37.5 C 05/06/18 11:44 Pulse 69 05/06/18 11:44 Resp 18 05/06/18 11:44 BP 135/62 05/06/18 11:44 Pulse Ox 91 05/06/18 11:44 Physical Exam: Denies any distress at rest Constitutional: WD/WN, vitals as above Eyes: PERRL, conjunctivae normal, anicteric sclerae ENMT: external ear and nose normal, oropharynx normal Neck: trachea midline, no thyromegaly Respiratory: normal respiratory effort Auscultation: + diminished lung sounds Cardiovascular: Rate/Rhythm: regular rate and regular rhythm Heart Sounds: normal S1 and normal S2 Gastrointestinal (Abdomen): Inspection/Auscultation: abdomen normal to inspection and normal bowel sounds Percussion/Palpation: abdomen soft; abdomen nontender Musculoskeletal: no cyanosis or clubbing, extremities motor strength 5/5 Neurologic: Alert, awake and oriented x3. Generally weak Results & Data Medications Administered Current Inpatient Medications Acetaminophen (Tylenol) 650 mg PO Q4H PRN PRN Reason: Pain or Fever Stop: 06/03/18 23:00 Last Admin: 05/05/18 21:00 Dose: 650 mg Documented by: Aspirin (Ecotrin Ectab) 81 mg PO DAILY [facility] Stop: 06/04/18 08:59 Last Admin: 05/06/18 09:54 Dose: 81 mg Documented by: Atorvastatin Calcium (Lipitor) 40 mg PO DAILY [facility] Stop: 06/04/18 08:59 Last Admin: 05/06/18 09:55 Dose: 40 mg Documented by: Carvedilol (Coreg) 12.5 mg PO BID [facility] Stop: 06/03/18 23:00 Last Admin: 05/06/18 09:53 Dose: 12.5 mg Documented by: Clopidogrel Bisulfate (Plavix) 75 mg PO DAILY [facility] Stop: 06/04/18 08:59 Last Admin: 05/06/18 09:56 Dose: 75 mg Documented by: Dextrose (Dextrose 50%) 25 - 50 ml IV UD PRN; Protocol PRN Reason: Hypoglycemia Protocol Stop: 06/03/18 23:00 Gabapentin (Neurontin) 300 mg PO DAILY [facility] Stop: 06/04/18 08:59 Last Admin: 05/06/18 09:56 Dose: 300 mg Documented by: Glucagon (Glucagen) 1 mg SQ UD PRN; Protocol PRN Reason: Hypoglycemia Protocol Stop: 06/03/18 23:00 Glucose (Glucose 40%) 15 - 30 gm PO UD PRN; Protocol PRN Reason: Hypoglycemia Protocol Stop: 06/03/18 23:00 Glucose (Dex4 Glucose) 4 - 8 tabs PO UD PRN; Protocol PRN Reason: Hypoglycemia Protocol Stop: 06/03/18 23:00 Heparin Sodium (Porcine) (Heparin Sodium (Porcine)) 5,000 units SQ Q8 [facility] Stop: 06/04/18 07:59 Last Admin: 05/06/18 13:28 Dose: 5,000 units Documented by: Hydralazine HCl (Apresoline) 25 mg PO Q6H PRN PRN Reason: Hypertension Stop: 06/03/18 23:00 Last Admin: 05/06/18 00:34 Dose: 25 mg Documented by: Insulin Aspart (Novolog Flexpen) 0 units SC ACHS [facility] Stop: 06/04/18 00:59 Last Admin: 05/06/18 13:30 Dose: 11 units Documented by: Magnesium Oxide (Mag-Ox) 400 mg PO DAILY [facility] Stop: 06/04/18 08:59 Last Admin: 05/06/18 09:55 Dose: 400 mg Documented by: Meclizine HCl (Antivert) 25 mg PO TID PRN PRN Reason: Vertigo Stop: 06/03/18 23:00 Miscellaneous (Carbohydrates For Hypoglycemia) 15 - 30 gm PO UD PRN PRN Reason: Hypoglycemia Treatment Stop: 06/03/18 23:00 Miscellaneous Information (Consult Glycemic Management Pharmacy) 1 ea N/A UD PRN; Protocol PRN Reason: Consult Stop: 06/04/18 00:36 Ranitidine HCl (Zantac) 150 mg PO DAILY [facility] Stop: 06/04/18 08:59 Last Admin: 05/06/18 09:56 Dose: 150 mg Documented by: Sevelamer HCl (Renagel) 2,400 mg PO TIDM [facility] Stop: 06/04/18 07:59 Last Admin: 05/06/18 13:31 Dose: 2,400 mg Documented by: Vitamin B Complex/Folic Acid (Nephrocaps) 1 cap PO DAILY [facility] Stop: 06/04/18 08:59 Last Admin: 05/06/18 09:55 Dose: 1 cap Documented by: Vitamin D (Vitamin D3) 5,000 units PO DAILY [facility] Stop: 06/04/18 08:59 Last Admin: 05/06/18 09:55 Dose: 5,000 units Documented by: (1) CAD (coronary artery disease) Coronary Disease-Associated Artery/Lesion type: [place] artery [place] vs. transplanted heart: [place] heart Associated angina: without angina Qualified Code(s): I25.10 - Atherosclerotic heart disease of [place] coronary artery without angina pectoris (2) Diabetes mellitus, type 2 Diabetes mellitus intermediate card tender insulin use: with intermediate card tender use Diabetes mellitus complication status: with kidney complications Diabetes mellitus complication detail: with chronic kidney disease Chronic kidney disease stage: on chronic dialysis Qualified Code(s): E11.22 - Type 2 diabetes mellitus with diabetic chronic kidney disease; N18.6 - End stage renal disease; Z79.4 - intermediate designer (current) use of insulin; Z99.2 - Dependence on renal dialysis (3) Diastolic CHF Heart failure chronicity: chronic Qualified Code(s): I50.32 - Chronic diastolic (congestive) heart failure (4) Hypertension Hypertension type: essential hypertension Qualified Code(s): I10 - Essential (primary) hypertension (5) Hyperlipidemia Hyperlipidemia type: unspecified Qualified Code(s): E78.5 - Hyperlipidemia, unspecified
--- NOTE | 2018-05-06 14:14 | Hospitalist Progress Note ---
Date of Service May 06, 2018 Assessment & Plan (1) Ambulatory dysfunction: (2) Generalized weakness: This is a 67-year-old female who has a significant past medical history of CAD with history of stent to LAD in 2017, end-stage renal disease on hemodialysis MWF, HTN, HLD, KUSHAL on CPAP, chronic diastolic CHF, T2DM with neuropathy, retinopathy and nephropathy, history of CVA/TIA, interstitial lung disease who presents to [facility] ED secondary to difficulty ambulating and weakness x1 day. -admit to med/surg telemetry -check urinalysis given pt hx of UTI to r/o infectious process-pending -Obtain echocardiogram-pending -trend troponin to rule out acute cardiac process-negative for any ACS -consult nephrology for HD-appreciate input -consult PT/OT to eval for rehab -Remains stable and getting stronger (3) ESRD (end stage renal disease) on dialysis: -HD MWF -consult nephrology (4) CAD (coronary artery disease): -no chest pain/sob but does complain of chest heaviness and chronic MENDOZA -initial troponin negative, will trend q6hr x 2 -repeat echocardiogram -continue ASA, Statin, plavix, coreg -No acute cardiac symptoms (5) Diabetes mellitus, type 2: -insulin dependent, takes novolin R and N at home -will consult pharmacy for glycemic management -Blood sugar is controlled (6) Diastolic CHF: -EF 2017 55-60%, failed stress echo at time -underwent left heart cath and received 1 stent to LAD -continue ASA, statin, plavix, coreg -daily weights, strict I and O -Continue hemodialysis -Restrict oral fluid to 1200 mls daily (7) Hypertension: -blood pressure uncontrolled while in ED, last -continue coreg, does not appear to be on any other hypertensives per -will add hydralazine 25mg po q6h prn -monitor and titrate accordingly (8) Hyperlipidemia: -continue statin (9) History of CVA (cerebrovascular accident): -Hx of right sided thalamic, basal ganglia, posterior parietal and occipital infarct -continue ASA, statin, plavix (10) Chronic anemia: -Hemoglobin and hematocrit stable at 9.6 and 30.3 -Receives Procrit -Monitor CBC -Hemoglobin is 8.5 today 04/28 (11) Interstitial lung disease: -no acute exac -encourage incentive spirometry (12) KUSHAL (obstructive sleep apnea): -CPAP at HS (13) GERD (gastroesophageal reflux disease): -continue ranitidine (14) Prolonged Q-T interval on ECG: -QTC 480ms on ecg -monitor and avoid qt prolonging agents if possible (15) DVT prophylaxis: -heparin 5,000 units SQ q8hrs Disposition: Likely d/c to rehab given ambulatory dysfunction, consult case management Follow up: PCP Dr. Golden upon discharge and continue with HD MWF Awaiting placement Subjective 05/05 The patient was seen and examined in medical telemetry unit This is a 67-year-old female who has a significant past medical history of CAD with history of stent to LAD in 2017, end-stage renal disease on hemodialysis MWF, HTN, HLD, KUSHAL on CPAP, chronic diastolic CHF, T2DM with neuropathy, retinopathy and nephropathy, history of CVA/TIA, interstitial lung disease who presents to [facility] ED secondary to difficulty ambulating and weakness x1 day. She is a status post hemodialysis today Feels a lot better Denies any chest tightness and/or shortness of breath 05/06 She has been feeling a lot better today She is out of bed on a chair and feels stronger She would like physical therapy Likely to go for rehab Constitutional: + weakness; no fever and no anorexia Neurologic: + unsteadiness, + generalized weakness and + dizziness; no tremor(s) Endocrine: + fatigue Physical Exam Vital Signs (Past 24 Hours): Last Vital Signs Temp 37.5 C 05/06/18 11:44 Pulse 69 05/06/18 11:44 Resp 18 05/06/18 11:44 BP 135/62 05/06/18 11:44 Pulse Ox 91 05/06/18 11:44 Constitutional: WD/WN, vitals as above Eyes: PERRL, conjunctivae normal, anicteric sclerae ENMT: external ear and nose normal, oropharynx normal Neck: trachea midline, no thyromegaly Respiratory: normal respiratory effort Auscultation: + diminished lung sounds Cardiovascular: Rate/Rhythm: regular rate and regular rhythm Heart Sounds: normal S1 and normal S2 Gastrointestinal (Abdomen): Inspection/Auscultation: abdomen normal to inspection and normal bowel sounds Percussion/Palpation: abdomen soft; abdomen nontender Musculoskeletal: no cyanosis or clubbing, extremities motor strength 5/5 (1) CAD (coronary artery disease) Coronary Disease-Associated Artery/Lesion type: [place] artery [place] vs. 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 Diabetes mellitus complication status: with kidney complications Diabetes mellitus complication detail: with chronic kidney disease Chronic kidney disease stage: on chronic dialysis Qualified Code(s): E11.22 - Type 2 diabetes mellitus with diabetic chronic kidney disease; N18.6 - End stage renal disease; Z79.4 - porcelain mixer (current) use of insulin; Z99.2 - Dependence on renal dialysis (3) Diastolic CHF Heart failure chronicity: chronic Qualified Code(s): I50.32 - Chronic diastolic (congestive) heart failure (4) Hypertension Hypertension type: essential hypertension Qualified Code(s): I10 - Essential (primary) hypertension (5) Hyperlipidemia Hyperlipidemia type: unspecified Qualified Code(s): E78.5 - Hyperlipidemia, unspecified
[2018-05-06] MEDS: ACETAMINOPHEN 325 MG TAB PO PRN (20:12)
[2018-05-06] MEDS: INSULIN GLARGINE SOLOSTAR 100 UNITS/ML 3 ML PEN SC SCH (20:13)
[2018-05-06] MEDS ORDERED: KETOROLAC TROMETHAMINE 15 MG/ML VIAL IV ONE (22:00)
[2018-05-07] MEDS: HEPARIN SOD 5,000 UNIT/0.5 ML VIAL SQ SCH ×3 (05:55→21:48)
[2018-05-07] MEDS ORDERED: SODIUM CHLORIDE 0.9% 1000ML 1,000 ML IV PRN (08:39)
[2018-05-07] MEDS ORDERED: EPOETIN ALFA 10,000 UNITS/ML VIAL IV SCH (09:00)
[2018-05-07] MEDS: CLOPIDOGREL BISULFATE 75 MG TAB PO SCH (09:09)
[2018-05-07] MEDS: GABAPENTIN 300 MG CAP PO SCH (09:09)
[2018-05-07] MEDS: NEPHROCAPS PO SCH (09:09)
[2018-05-07] MEDS: CHOLECALCIFEROL 1,000 UNITS TAB PO SCH (09:09)
[2018-05-07] MEDS: CARVEDILOL 12.5 MG TAB PO SCH ×2 (09:10→20:04)
[2018-05-07] MEDS: ATORVASTATIN 40 MG TAB PO SCH (09:10)
[2018-05-07] MEDS: SEVELAMER HCL 800 MG TABLET PO SCH ×3 (09:10→20:00)
[2018-05-07] MEDS: MAGNESIUM OXIDE 400 MG TAB PO SCH (09:10)
[2018-05-07] MEDS: INSULIN ASPART 100 UNITS/ML 3 ML PEN SC SCH ×4 (09:11→20:06)
[2018-05-07] MEDS ORDERED: INSULIN GLARGINE SOLOSTAR 100 UNITS/ML 3 ML PEN SC SCH (10:30)
--- NOTE | 2018-05-07 10:47 | Pharmacy Report ---
Pharmacy Glycemic Short Note 2 - Date of Service May 07, 2018 - Glycemic Short BSG Results (Last 24 hours): 05/06/18 05/06/18 05/06/18 12:01 16:15 20:08 POC Glucose 205 H 137 H 150 H 05/07/18 09:00 POC Glucose 196 H OUTPATIENT ANTIDIABETIC REGIMEN: * NPH 26 units qAM, 22 units qPM * Novolin-R sliding scale (15-30 units with meals) * OhO0d=8.8% ASSESSMENT: 05/07: * Patient received a total of 65 unit of insulin yesterday, 40 units of which were basal (Lantus). * A fasting BSG was not obtained this AM. BSG of 196 this AM was obtained late and most likely post-prandial. * After the CF and CR was tightened yesterday, dinner and bedtime BSGs were either in range or close to goal range yesterday. * Therefore will continue same CF and CR. * Lunch BSG = 176, will continue same Lantus dose. 05/06: * Patient received 47 units of insulin yesterday, 30 units of which were basal (Lantus). * Fasting BSG this AM = 175 which is higher than yesterday. Also lunch BSG today was 205. * Increased Lantus for better fasting BSG and tightened Novolog CF and CR as well. * Patient has a history of admissions here, so current orders were also based off of what has worked previously for her. PLAN FOR INPATIENT GLYCEMIC CONTROL: * Hold outpatient oral diabetes medications * Basal insulin: continue same * Lantus 20 units SQ BID * Bolus insulin: tightened CF & CR * NovoLog per scale ACHS or Q6hrs while NPO * Goal Range: Low 110 mg/dL - High 140 mg/dL * Correction Factor: 20 mg/dL/unit * Nutritional / Prandial insulin per carb ratio of 1 unit per 6 grams CHO co nsumed PLAN FOR DISCHARGE: * Patient can most likely be able to resume home regimen upon discharge since her HbA1c of 5.8% indicates well-controlled diabetes.
[2018-05-07] MEDS: ASPIRIN 81 MG ECTAB PO SCH (10:55)
--- NOTE | 2018-05-07 17:38 | Hospitalist Progress Note ---
Date of Service May 07, 2018 Assessment & Plan (1) Ambulatory dysfunction: (2) Generalized weakness: This is a 67-year-old female who has a significant past medical history of CAD with history of stent to LAD in 2017, end-stage renal disease on hemodialysis MWF, HTN, HLD, KUSHAL on CPAP, chronic diastolic CHF, T2DM with neuropathy, retinopathy and nephropathy, history of CVA/TIA, interstitial lung disease who presents to [facility] ED secondary to difficulty ambulating and weakness x1 day. -admit to med/surg telemetry -check urinalysis given pt hx of UTI to r/o infectious process-pending -Obtain echocardiogram-pending -trend troponin to rule out acute cardiac process-negative for any ACS -consult nephrology for HD-appreciate input -consult PT/OT to eval for rehab -Remains stable and getting stronger -Has been accepted to [facility] for rehab -We will transfer her tomorrow (3) ESRD (end stage renal disease) on dialysis: -HD MWF -consult nephrology -Continue hemodialysis (4) CAD (coronary artery disease): -no chest pain/sob but does complain of chest heaviness and chronic MENDOZA -initial troponin negative, will trend q6hr x 2 -repeat echocardiogram -continue ASA, Statin, plavix, coreg -No acute cardiac symptoms (5) Diabetes mellitus, type 2: -insulin dependent, takes novolin R and N at home -will consult pharmacy for glycemic management -Blood sugar is controlled (6) Diastolic CHF: -EF 2017 55-60%, failed stress echo at time -underwent left heart cath and received 1 stent to LAD -continue ASA, statin, plavix, coreg -daily weights, strict I and O -Continue hemodialysis -Restrict oral fluid to 1200 mls daily -Continue dialysis (7) Hypertension: -blood pressure uncontrolled while in ED, last 182/60 -continue coreg, does not appear to be on any other hypertensives per -will add hydralazine 25mg po q6h prn -monitor and titrate accordingly (8) Hyperlipidemia: -continue statin (9) History of CVA (cerebrovascular accident): -Hx of right sided thalamic, basal ganglia, posterior parietal and occipital infarct -continue ASA, statin, plavix (10) Chronic anemia: -Hemoglobin and hematocrit stable at 9.6 and 30.3 -Receives Procrit -Monitor CBC -Hemoglobin is 8.5 today 04/28 (11) Interstitial lung disease: -no acute exac -encourage incentive spirometry (12) KUSHAL (obstructive sleep apnea): -CPAP at HS (13) GERD (gastroesophageal reflux disease): -continue ranitidine (14) Prolonged Q-T interval on ECG: -QTC 480ms on ecg -monitor and avoid qt prolonging agents if possible (15) DVT prophylaxis: -heparin 5,000 units SQ q8hrs Disposition: Likely d/c to rehab given ambulatory dysfunction, consult case management Follow up: PCP Dr. Golden upon discharge and continue with HD MWF Awaiting placement-accepted to [facility] Will be transferred tomorrow Subjective 05/05 The patient was seen and examined in medical telemetry unit This is a 67-year-old female who has a significant past medical history of CAD with history of stent to LAD in 2016, end-stage renal disease on hemodialysis MWF, HTN, HLD, KUSHAL on CPAP, chronic diastolic CHF, T2DM with neuropathy, retinopathy and nephropathy, history of CVA/TIA, interstitial lung disease who presents to [facility] ED secondary to difficulty ambulating and weakness x1 day. She is a status post hemodialysis today Feels a lot better Denies any chest tightness and/or shortness of breath 05/06 She has been feeling a lot better today She is out of bed on a chair and feels stronger She would like physical therapy Likely to go for rehab 05/07 Has been feeling a lot better Waiting for dialysis today Got physical therapy and recommended rehab Constitutional: + weakness; no fever and no anorexia Neurologic: + unsteadiness, + generalized weakness and + dizziness; no tremor(s) Endocrine: + fatigue Physical Exam Vital Signs (Past 24 Hours): Last Vital Signs Temp 37.2 C 05/07/18 16:14 Pulse 58 L 05/07/18 17:20 Resp 18 05/07/18 15:41 BP 126/55 L 05/07/18 17:20 Pulse Ox 93 05/07/18 15:41 Physical Exam: Out of bed to chair without any symptoms Constitutional: WD/WN, vitals as above Eyes: PERRL, conjunctivae normal, anicteric sclerae ENMT: external ear and nose normal, oropharynx normal Neck: trachea midline, no thyromegaly Respiratory: normal respiratory effort Auscultation: + diminished lung sounds Cardiovascular: Rate/Rhythm: regular rate and regular rhythm Heart Sounds: normal S1 and normal S2 Gastrointestinal (Abdomen): Inspection/Auscultation: abdomen normal to inspection and normal bowel sounds Percussion/Palpation: abdomen soft; abdomen nontender Musculoskeletal: no cyanosis or clubbing, extremities motor strength 5/5 Results & Data Medications Administered Current Inpatient Medications Acetaminophen (Tylenol) 650 mg PO Q4H PRN PRN Reason: Pain or Fever Stop: 06/03/18 23:00 Last Admin: 05/06/18 20:12 Dose: 650 mg Documented by: Aspirin (Ecotrin Ectab) 81 mg PO DAILY TEMO Stop: 06/04/18 08:59 Last Admin: 05/07/18 10:55 Dose: 81 mg Documented by: Atorvastatin Calcium (Lipitor) 40 mg PO DAILY [facility]O Stop: 06/04/18 08:59 Last Admin: 05/07/18 09:10 Dose: 40 mg Documented by: Carvedilol (Coreg) 12.5 mg PO BID TEMO Stop: 06/03/18 23:00 Last Admin: 05/07/18 09:10 Dose: 12.5 mg Documented by: Clopidogrel Bisulfate (Plavix) 75 mg PO DAILY TEMO Stop: 06/04/18 08:59 Last Admin: 05/07/18 09:09 Dose: 75 mg Documented by: Dextrose (Dextrose 50%) 25 - 50 ml IV UD PRN; Protocol PRN Reason: Hypoglycemia Protocol Stop: 06/03/18 23:00 Epoetin Oleg (Procrit) 10,000 units IV TODAY@0900 TEMO Stop: 05/07/18 23:59 Last Admin: 05/07/18 17:12 Dose: 10,000 units Documented by: Gabapentin (Neurontin) 300 mg PO DAILY [facility]O Stop: 06/04/18 08:59 Last Admin: 05/07/18 09:09 Dose: 300 mg Documented by: Glucagon (Glucagen) 1 mg SQ UD PRN; Protocol PRN Reason: Hypoglycemia Protocol Stop: 06/03/18 23:00 Glucose (Glucose 40%) 15 - 30 gm PO UD PRN; Protocol PRN Reason: Hypoglycemia Protocol Stop: 06/03/18 23:00 Glucose (Dex4 Glucose) 4 - 8 tabs PO UD PRN; Protocol PRN Reason: Hypoglycemia Protocol Stop: 06/03/18 23:00 Heparin Sodium (Porcine) (Heparin Sodium (Porcine)) 5,000 units SQ Q8 TEMO Stop: 06/04/18 07:59 Last Admin: 05/07/18 14:17 Dose: 5,000 units Documented by: Hydralazine HCl (Apresoline) 25 mg PO Q6H PRN PRN Reason: Hypertension Stop: 06/03/18 23:00 Last Admin: 05/06/18 00:34 Dose: 25 mg Documented by: Insulin Aspart (Novolog Flexpen) 0 units SC ACHS TEMO Stop: 06/04/18 00:59 Last Admin: 05/07/18 12:29 Dose: 11 units Documented by: Insulin Glargine (Lantus Solostar Pen) 20 units SC BID [facility]; Protocol Stop: 06/05/18 20:59 Last Admin: 05/06/18 20:13 Dose: 20 units Documented by: Magnesium Oxide (Mag-Ox) 400 mg PO DAILY [facility] Stop: 06/04/18 08:59 Last Admin: 05/07/18 09:10 Dose: 400 mg Documented by: Meclizine HCl (Antivert) 25 mg PO TID PRN PRN Reason: Vertigo Stop: 06/03/18 23:00 Miscellaneous (Carbohydrates For Hypoglycemia) 15 - 30 gm PO UD PRN PRN Reason: Hypoglycemia Treatment Stop: 06/03/18 23:00 Miscellaneous Information (Consult Glycemic Management Pharmacy) 1 ea N/A UD PRN; Protocol PRN Reason: Consult Stop: 06/04/18 00:36 Ranitidine HCl (Zantac) 150 mg PO DAILY [facility] Stop: 06/04/18 08:59 Last Admin: 05/07/18 09:09 Dose: 150 mg Documented by: Sevelamer HCl (Renagel) 2,400 mg PO TIDM [facility]O Stop: 06/04/18 07:59 Last Admin: 05/07/18 12:28 Dose: 2,400 mg Documented by: Vitamin B Complex/Folic Acid (Nephrocaps) 1 cap PO DAILY [facility] Stop: 06/04/18 08:59 Last Admin: 05/07/18 09:09 Dose: 1 cap Documented by: Vitamin D (Vitamin D3) 5,000 units PO DAILY [facility] Stop: 06/04/18 08:59 Last Admin: 05/07/18 09:09 Dose: 5,000 units Documented by: (1) CAD (coronary artery disease) Coronary Disease-Associated Artery/Lesion type: [place] artery [place] vs. 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 Diabetes mellitus complication status: with kidney complications Diabetes mellitus complication detail: with chronic kidney disease Chronic kidney disease stage: on chronic dialysis Qualified Code(s): E11.22 - Type 2 diabetes mellitus with diabetic chronic kidney disease; N18.6 - End stage renal disease; Z79.4 - intermediate designer (current) use of insulin; Z99.2 - Dependence on renal dialysis (3) Diastolic CHF Heart failure chronicity: chronic Qualified Code(s): I50.32 - Chronic diastolic (congestive) heart failure (4) Hypertension Hypertension type: essential hypertension Qualified Code(s): I10 - Essential (primary) hypertension (5) Hyperlipidemia Hyperlipidemia type: unspecified Qualified Code(s): E78.5 - Hyperlipidemia, unspecified
--- NOTE | 2018-05-07 18:34 | Nephrology Progress Note ---
Date of Service May 07, 2018 Assessment & Plan (1) ESRD (end stage renal disease) on dialysis: Patient with ESRD on HD MWF. She is being dialyzed today for 4hrs, QB 400, QD 600 and target UF of 3litres. Next HD Thursday (2) Hypertension: Her BP is controlled on current regimen which will continue. Hold Coreg in the morning pre HD (3) Secondary hyperparathyroidism (of renal origin): Patient should take renvela 3 tabs tid with meals and 1 tab with snacks and vitamin D daily. (4) Anemia, chronic renal failure: She will get Epogen 10,000 units with dialysis Subjective ESRD patient seen in follow up. Shefeels better today. Still not ambulating yet. No SOB today. She is complaining of right shoulder pain. She is planned for HD today Constitutional: + weakness; no fever and no anorexia Neurologic: + unsteadiness, + generalized weakness and + dizziness; no tremor(s) Endocrine: + fatigue Physical Exam Vital Signs (Past 24 Hours): Last Vital Signs Temp 37.2 C 05/07/18 16:14 Pulse 60 05/07/18 17:55 Resp 18 05/07/18 15:41 BP 126/48 L 05/07/18 17:55 Pulse Ox 93 05/07/18 15:41 Physical Exam: General exam: Appears comfortable, no acute distress HEENT: Pupils are equal and reactive to light Neck: No JVD, neck is supple trachea is midline Respiratory system: Clear breath sounds bilaterally. Gastrointestinal: Abdomen is soft, non distended, non tender, bowel sounds are present CVS: Regular rate and rhythm. No murmurs, rubs or gallops Musculoskeletal: No joint or muscle tenderness Extremities: Non tender, no edema, peripheral pulses are present Neuro: Oriented, no tremors, no focal neurological deficits Skin: No rashes Access: left UA AVF good bruit (1) Hypertension Hypertension type: essential hypertension Qualified Code(s): I10 - Essential (primary) hypertension
[2018-05-07] MEDS: INSULIN GLARGINE SOLOSTAR 100 UNITS/ML 3 ML PEN SC SCH (20:05)
--- NOTE | 2018-05-08 01:59 | Hospitalist Progress Note ---
Date of Service May 08, 2018 Subjective Was called by the nurse to see the patient who had finished dialysis at 730 tonight and has been confused ever since. According to the she does get a little wacky after dialysis, but this is a definite change per the nurse. I went to see the patient at the bedside and she was confused and sporadically answers questions appropriately. I will panculture her and order a CT of her head. ROS-No Headache, No Visual Changes, No Nausea, No Vomiting, No Fever, No Chills, No Neck Pain or Stiffness, No Chest Pain, No Palpitations, No SOB, No MENDOZA, No Cough, No Sputum, No Wheezing, No Abdominal Pain, No Diarrhea, No Hematemesis, No Hemoptysis, No Unexpected Weight Loss, No Flank pain, No Melena, No Hematochezia, No Frequency, No Urgency, No Burning, No Hematuria, No Rashes, No Diaphoresis. Appetite is Normal, she feels confused and cloudy Physical Exam Gen-AAO x2, NAD, Afebrile, confused, obese Head-NCAT, EOMI, PERRLA, Anicteric Sclera, No Posterior Pharyngeal Erythema Neck-Supple, No JVD, No Thyromegaly, No Masses, No LAD, No Bruits Lungs-Clear to Auscultation Bilaterally, No Rales, No Rhonchi, No Wheezing, No Crepitus Chest-No S4, +S1, +S2, No S3, No Murmurs, No Rubs, No Gallops, No Ectopy Abdomen-Soft, Bowel Sounds Present, Non Tender, Non Distended, No Hepatomegaly, No Splenomegaly, No Palpable Masses, No Rebound, No Rigidity, No Guarding Musculoskeletal-Full Range of Motion Bilaterally, No CVAT Extremities-No Cyanosis, No Clubbing, No Edema Nuero-Cranial Nerves II-XII grossly intact, Motor WNL, DTRs WNL, Strength WNL, Non Focal Psych-Normal Mood Physical Exam Vital Signs (Past 24 Hours): Last Vital Signs Temp 37.2 C 05/08/18 00:00 Pulse 77 05/08/18 00:00 Resp 20 05/08/18 00:00 BP 144/73 H 05/08/18 00:00 Pulse Ox 93 05/08/18 00:00
[2018-05-08 04:08] LABS: Appearance Urine Turbid (Clear); Bilirubin Urine Negative (Negative); Blood Urine 3+ (Negative); Color Urine Yellow; Glucose Urine UA Negative (Negative); Ketones Urine Trace (Negative); Leukocyte Esterase Urine 3+ (Negative); Nitrite Urine Negative (Negative); Urobilinogen Urine Negative (Negative); pH Urine 7.5 (4.5-7.5)
[2018-05-08 04:11] LABS: Protein Urine 3+ (Negative)
[2018-05-08 04:27] LABS: Bacteria Urine 1+ (Negative); WBC Urine >30 /hpf (0-5)
[2018-05-08] MEDS ORDERED: MICONAZOLE NITRATE POWDER 43 GM EXT PRN (05:03)
[2018-05-08 07:32] LABS: Hematocrit (blood only) 27.4 % (37-47); Hemoglobin 8.8 g/dL (12.0-16.0); Mean Corpuscular Hgb Conc 32.1 g/dL (32-36); Mean Corpuscular Volume 97.2 fL (80-100); Mean Platelet Volume 9.4 fL (7.4-10.4); Nucleated RBC # (auto) 0.09 K/uL (0-0); Platelet Count 189 K/uL (130-400); RDW Coefficient of Variation 18.5 % (11.5-14.5); RDW Standard Deviation 65.1 fL (36.4-46.3); Red Blood Count 2.82 M/uL (4.2-5.4); White Blood Count 8.87 K/uL (4.8-10.8)
[2018-05-08] MEDS: ATORVASTATIN 40 MG TAB PO SCH (08:09)
[2018-05-08] MEDS: CARVEDILOL 12.5 MG TAB PO SCH (08:09)
[2018-05-08] MEDS: ASPIRIN 81 MG ECTAB PO SCH (08:10)
[2018-05-08] MEDS: NEPHROCAPS PO SCH (08:10)
[2018-05-08] MEDS: CLOPIDOGREL BISULFATE 75 MG TAB PO SCH (08:10)
[2018-05-08] MEDS: CHOLECALCIFEROL 1,000 UNITS TAB PO SCH (08:10)
[2018-05-08] MEDS: MAGNESIUM OXIDE 400 MG TAB PO SCH (08:10)
[2018-05-08] MEDS: GABAPENTIN 300 MG CAP PO SCH (08:11)
[2018-05-08] MEDS: SEVELAMER HCL 800 MG TABLET PO SCH ×2 (08:11→12:45)
[2018-05-08] MEDS: INSULIN GLARGINE SOLOSTAR 100 UNITS/ML 3 ML PEN SC SCH (08:12)
[2018-05-08] MEDS: INSULIN ASPART 100 UNITS/ML 3 ML PEN SC SCH ×2 (08:15→12:43)
--- NOTE | 2018-05-08 08:23 | CT Scan Report ---
CT OF THE HEAD WITHOUT CONTRAST CLINICAL HISTORY: Altered mental status. COMPARISON STUDY: Head CT May 04, 2018. MRI of the brain September 02, 2016. CT DOSE: 767.83 mGy.cm TECHNIQUE: Helical axial images of the head were obtained without IV contrast. Automated exposure con trol was utilized for the study. A dose lowering technique was utilized adhering to the principles o f ALARA. FINDINGS: No acute intracranial hemorrhage, midline shift or mass effect is present. Old infarct with in the right occipital lobe is noted. An old lacunar infarct within the right internal WAS noted. Mychal tricular system is unremarkable. The basilar cisterns are patent. There are no extra-axial collection s. White matter hypodensities are unchanged and suggest small vessel disease. There are no significan t calvarial abnormalities. Mucosal thickening with air-fluid levels within the sphenoid sinuses are n oted. This is similar to previous exam. IMPRESSION: 1. No acute intracranial findings. 2. Mild sinus disease which is similar to prior exam. Electronically signed by: Raghu Beasley M.D. 05/08/2018 8:22 AM
--- NOTE | 2018-05-08 09:43 | Hospitalist Progress Note ---
Date of Service May 08, 2018 Assessment & Plan (1) Ambulatory dysfunction: (2) Generalized weakness: This is a 67-year-old female who has a significant past medical history of CAD with history of stent to LAD in 2017, end-stage renal disease on hemodialysis MWF, HTN, HLD, KUSHAL on CPAP, chronic diastolic CHF, T2DM with neuropathy, retinopathy and nephropathy, history of CVA/TIA, interstitial lung disease who presents to [facility] ED secondary to difficulty ambulating and weakness x1 day. -admit to med/surg telemetry -check urinalysis given pt hx of UTI to r/o infectious process-pending -Obtain echocardiogram-pending -trend troponin to rule out acute cardiac process-negative for any ACS -consult nephrology for HD-appreciate input -consult PT/OT to [facility] for rehab -Remains stable and getting stronger -Has been accepted to [facility] for rehab -Remains medically stable to be transferred to [facility] this afternoon -She is agreeable to that (3) ESRD (end stage renal disease) on dialysis: -HD MWF -consult nephrology -Continue hemodialysis as an outpatie (4) CAD (coronary artery disease): -no chest pain/sob but does complain of chest heaviness and chronic MENDOZA -initial troponin negative, will trend q6hr x 2 -repeat echocardiogram -continue ASA, Statin, plavix, coreg -No acute cardiac symptoms (5) Diabetes mellitus, type 2: -insulin dependent, takes novolin R and N at home -will consult pharmacy for glycemic management -Blood sugar is controlled (6) Diastolic CHF: -EF 2017 55-60%, failed stress echo at time -underwent left heart cath and received 1 stent to LAD -continue ASA, statin, plavix, coreg -daily weights, strict I and O -Continue hemodialysis -Restrict oral fluid to 1200 mls daily -No acute symptoms of shortness of breath and/or palpitation (7) Hypertension: -blood pressure uncontrolled while in ED, last -continue coreg, does not appear to be on any other hypertensives per -will add hydralazine 25mg po q6h prn -monitor and titrate accordingly -Blood pressure seems to be under control (8) Hyperlipidemia: -continue statin (9) History of CVA (cerebrovascular accident): -Hx of right sided thalamic, basal ganglia, posterior parietal and occipital infarct -continue ASA, statin, plavix (10) Chronic anemia: -Hemoglobin and hematocrit stable at 9.6 and 30.3 -Receives Procrit -Monitor CBC -Hemoglobin is 8.8 today (11) Interstitial lung disease: -no acute exac -encourage incentive spirometry (12) KUSHAL (obstructive sleep apnea): -CPAP at HS (13) GERD (gastroesophageal reflux disease): -continue ranitidine (14) Prolonged Q-T interval on ECG: -QTC 480ms on ecg -monitor and avoid qt prolonging agents if possible (15) DVT prophylaxis: -heparin 5,000 units SQ q8hrs Disposition: Likely d/c to rehab given ambulatory dysfunction, consult case management Follow up: PCP Dr. Golden upon discharge and continue with HD [facility] Accepted to [facility] and will be transferred there this afternoon Subjective 05/05 The patient was seen and examined in medical telemetry unit This is a 67-year-old female who has a significant past medical history of CAD with history of stent to LAD in 2017, end-stage renal disease on hemodialysis MWF, HTN, HLD, KUSHAL on CPAP, chronic diastolic CHF, T2DM with neuropathy, retinopathy and nephropathy, history of CVA/TIA, interstitial lung disease who presents to [facility] ED secondary to difficulty ambulating and weakness x1 day. She is a status post hemodialysis today Feels a lot better Denies any chest tightness and/or shortness of breath 05/06 She has been feeling a lot better today She is out of bed on a chair and feels stronger She would like physical therapy Likely to go for rehab 05/07 Has been feeling a lot better Waiting for dialysis today Got physical therapy and recommended rehab 05/08 Has had an episode of confusion following dialysis last evening Was evaluated by night talk and CAT scan of the head came out to be negative She does not have any more episode or symptoms this morning Denies any other symptoms Constitutional: + weakness; no fever and no anorexia Neurologic: + unsteadiness, + generalized weakness and + dizziness; no tremor(s) Endocrine: + fatigue Physical Exam Vital Signs (Past 24 Hours): Last Vital Signs Temp 36.8 C 05/08/18 08:32 Pulse 67 05/08/18 08:32 Resp 20 05/08/18 08:32 BP 131/78 05/08/18 08:32 Pulse Ox 92 05/08/18 08:32 Physical Exam: No apparent distress at rest. Lying in bed comfortably Constitutional: WD/WN, vitals as above Eyes: PERRL, conjunctivae normal, anicteric sclerae ENMT: external ear and nose normal, oropharynx normal Neck: trachea midline, no thyromegaly Respiratory: normal respiratory effort Auscultation: + diminished lung sounds and + crackles (Minimal crackles at the bases); no wheezes Cardiovascular: Rate/Rhythm: regular rate and regular rhythm Heart Sounds: normal S1 and normal S2 Gastrointestinal (Abdomen): Inspection/Auscultation: abdomen normal to inspection and normal bowel sounds Percussion/Palpation: abdomen soft; abdomen nontender Musculoskeletal: no cyanosis or clubbing, extremities motor strength 5/5 Neurologic: Alert, awake and oriented x3, Generally weak Results & Data Laboratory Results Short CBC 05/08/18 05/08/18 Range/Units 06:05 07:19 WBC Cancelled 8.87 Hgb Cancelled 8.8 L Hct Cancelled 27.4 L Plt Count Cancelled 189 Urine 05/08/18 Range/Units 03:30 Urine Color Yellow Urine Appearance Turbid H (Clear) Urine pH 7.5 (4.5-7.5) Ur Specific [place] 1.020 (1.000-1.030) Urine Protein 3+ H (Negative) Urine Glucose (UA) Negative (Negative) Medications Administered Current Inpatient Medications Acetaminophen (Tylenol) 650 mg PO Q4H PRN PRN Reason: Pain or Fever Stop: 06/03/18 23:00 Last Admin: 05/06/18 20:12 Dose: 650 mg Documented by: Aspirin (Ecotrin Ectab) 81 mg PO DAILY [facility] Stop: 06/04/18 08:59 Last Admin: 05/08/18 08:10 Dose: 81 mg Documented by: Atorvastatin Calcium (Lipitor) 40 mg PO DAILY [facility] Stop: 06/04/18 08:59 Last Admin: 05/08/18 08:09 Dose: 40 mg Documented by: Carvedilol (Coreg) 12.5 mg PO BID [facility] Stop: 06/03/18 23:00 Last Admin: 05/08/18 08:09 Dose: 12.5 mg Documented by: Clopidogrel Bisulfate (Plavix) 75 mg PO DAILY [facility] Stop: 06/04/18 08:59 Last Admin: 05/08/18 08:10 Dose: 75 mg Documented by: Dextrose (Dextrose 50%) 25 - 50 ml IV UD PRN; Protocol PRN Reason: Hypoglycemia Protocol Stop: 06/03/18 23:00 Gabapentin (Neurontin) 300 mg PO DAILY [facility] Stop: 06/04/18 08:59 Last Admin: 05/08/18 08:11 Dose: 300 mg Documented by: Glucagon (Glucagen) 1 mg SQ UD PRN; Protocol PRN Reason: Hypoglycemia Protocol Stop: 06/03/18 23:00 Glucose (Glucose 40%) 15 - 30 gm PO UD PRN; Protocol PRN Reason: Hypoglycemia Protocol Stop: 06/03/18 23:00 Glucose (Dex4 Glucose) 4 - 8 tabs PO UD PRN; Protocol PRN Reason: Hypoglycemia Protocol Stop: 06/03/18 23:00 Heparin Sodium (Porcine) (Heparin Sodium (Porcine)) 5,000 units SQ Q8 [facility] Stop: 06/04/18 07:59 Last Admin: 05/07/18 21:48 Dose: 5,000 units Documented by: Hydralazine HCl (Apresoline) 25 mg PO Q6H PRN PRN Reason: Hypertension Stop: 06/03/18 23:00 Last Admin: 05/08/18 08:09 Dose: 25 mg Documented by: Insulin Aspart (Novolog Flexpen) 0 units SC ACHS [facility] Stop: 06/04/18 00:59 Last Admin: 05/08/18 08:15 Dose: 3 units Documented by: Insulin Glargine (Lantus Solostar Pen) 20 units SC BID [facility]; Protocol Stop: 06/05/18 20:59 Last Admin: 05/08/18 08:12 Dose: 20 units Documented by: Magnesium Oxide (Mag-Ox) 400 mg PO DAILY [facility] Stop: 06/04/18 08:59 Last Admin: 05/08/18 08:10 Dose: 400 mg Documented by: Meclizine HCl (Antivert) 25 mg PO TID PRN PRN Reason: Vertigo Stop: 06/03/18 23:00 Miconazole Nitrate (Desenex) 1 appln EXT PRN PRN; Protocol PRN Reason: Affected Skin Folds Stop: 06/07/18 05:02 Miscellaneous (Carbohydrates For Hypoglycemia) 15 - 30 gm PO UD PRN PRN Reason: Hypoglycemia Treatment Stop: 06/03/18 23:00 Miscellaneous Information (Consult Glycemic Management Pharmacy) 1 ea N/A UD PRN; Protocol PRN Reason: Consult Stop: 06/04/18 00:36 Ranitidine HCl (Zantac) 150 mg PO DAILY [facility] Stop: 06/04/18 08:59 Last Admin: 05/08/18 08:11 Dose: 150 mg Documented by: Sevelamer HCl (Renagel) 2,400 mg PO TIDM [facility] Stop: 06/04/18 07:59 Last Admin: 05/08/18 08:11 Dose: 2,400 mg Documented by: Vitamin B Complex/Folic Acid (Nephrocaps) 1 cap PO DAILY [facility] Stop: 06/04/18 08:59 Last Admin: 05/08/18 08:10 Dose: 1 cap Documented by: Vitamin D (Vitamin D3) 5,000 units PO DAILY [facility] Stop: 06/04/18 08:59 Last Admin: 05/08/18 08:10 Dose: 5,000 units Documented by: (1) CAD (coronary artery disease) Coronary Disease-Associated Artery/Lesion type: [place] artery [place] vs. 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
--- NOTE | 2018-05-08 10:37 | Discharge Summary ---
Date of Service May 08, 2018 Admission HPI Per Admitting Provider This is a 67-year-old female who has a significant past medical history of CAD with history of stent to LAD in 2017, end-stage renal disease on hemodialysis MWF, HTN, HLD, KUSHAL on CPAP, chronic diastolic CHF, T2DM with neuropathy, retinopathy and nephropathy, history of CVA/TIA, interstitial lung disease who presents to [facility] ED secondary to difficulty ambulating and weakness x1 day. Patient's and granddaughter are at bedside. Patient notes symptoms started yesterday morning whenever she was going to dialysis at approximately 7 AM. She had difficulty going down her stairs secondary to leg weakness, unable to hold up patient therefore she was placed on the ground. She did not fall. EMS was called to get patient into car to be transported to hemodialysis. Patient had full treatment of hemodialysis on 05/05; however, continued to have overall generalized weakness and difficulty walking. According to epic records has been reported increased shaking, dizziness, disorientation and was concerned about possible mini stroke due to her history. Patient also notes when she was admitted to [facility] in 10/2017 she had a urinary tract infection which also presented similar. She denies any recent fever but always feels cold, denies any lightheadedness, presyncopal symptoms, upper respiratory symptoms, chest pain, palpitations, shortness of breath at rest. She does elicit to overall chest heaviness over the past 2 to 3 days, "feels like a pressure like something is sitting on my chest, increases with exertion, improves with rest." She denies any libra cough or hemoptysis, nausea, vomiting, abdominal pain, diarrhea. She is mostly anuric but does occasionally urinate. She denies any dysuria or hematuria. Her appetite is, "too good." Denies any significant weight gain. Does not occasionally get swelling but usually improves with dialysis. Does not notice any increased swelling of her bilateral lower extremities. No sick contacts. Admission Exam Per Admitting Provider Vital Signs (Past 24 Hours): Last Vital Signs Temp 36.9 C 05/04/18 14:37 Pulse 74 05/04/18 20:31 Resp 16 05/04/18 20:31 BP 182/60 H 05/04/18 20:31 Pulse Ox 100 05/04/18 20:31 Physical Exam: Gen: WD/WN, morbidly obese, female, NAD, sitting up in bed, pleasant, conversing easily Head: Normocephalic, Atraumatic Eyes: Sclera normal, no conjunctival injection, PERRLA, EOMI ENT: Gross hearing intact, normal pharynx, mucous membranes moist Neck: supple, no adenopathy, No JVD, no bruit, Resp: Clear to auscultation b/l, no wheeze, rales, rhonchi. 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, no clonus Extremities: +1 edema bilaterally, no erythema or warmth, LUE AV Fistula intact Skin: warm, moist, no rash, negative turgor, cap refill < 2sec Neuro: Alert and oriented x 3, speech normal, good mood/affect, cran nerve 2-12 intact grossly : deferred Principal Diagnosis Generalized weakness, ambulatory dysfunction, end-stage renal disease on hemodialysis Discharge Exam Constitutional WD/WN, vitals as above Eyes PERRL, conjunctivae normal, anicteric sclerae ENMT external ear and nose normal, oropharynx normal Neck trachea midline, no thyromegaly Respiratory normal respiratory effort Auscultation: + diminished lung sounds and + crackles (Minimal crackles at the bases); no wheezes Cardiovascular Rate/Rhythm: regular rate and regular rhythm Heart Sounds: normal S1 and normal S2 Gastrointestinal (Abdomen) Inspection/Auscultation: abdomen normal to inspection and normal bowel sounds Percussion/Palpation: abdomen soft; abdomen nontender Musculoskeletal no cyanosis or clubbing, extremities motor strength 5/5 Discharge Data Allergies Allergy/AdvReac Type Severity Reaction Status Date / Time codeine Allergy Intermediate hives Verified 07/03/17 12:49 pioglitazone Allergy Intermediate Rash/Fluid Unverified 07/03/17 12:49 retention morphine Allergy Mild HIVES Verified 07/03/17 12:49 Consultations 05/04/18 20:49 Consult Nephrology Routine 05/04/18 20:50 ED Decision to Admit Stat 05/04/18 23:01 Consult Case Management - Discharge Planning Routine Ordered Studies 05/04/18 15:20 CT head/brain wo con Stat 05/08/18 01:59 CT head/brain wo con Urgent Hospital Course (1) Ambulatory dysfunction: (2) Generalized weakness: This is a 67-year-old female who has a significant past medical history of CAD with history of stent to LAD in 2017, end-stage renal disease on hemodialysis MWF, HTN, HLD, KUSHAL on CPAP, chronic diastolic CHF, T2DM with neuropathy, retinopathy and nephropathy, history of CVA/TIA, interstitial lung disease who presents to [facility] ED secondary to difficulty ambulating and weakness x1 day. -admit to med/surg telemetry -check urinalysis given pt hx of UTI to r/o infectious process-pending -Obtain echocardiogram-pending -trend troponin to rule out acute cardiac process-negative for any ACS -consult nephrology for HD-appreciate input -consult PT/OT to [facility] for rehab -Remains stable and getting stronger -Has been accepted to [facility] for rehab -Remains medically stable to be transferred to [facility] this afternoon -She is agreeable to that (3) ESRD (end stage renal disease) on dialysis: -HD MWF -consult nephrology -Continue hemodialysis as an outpatie (4) CAD (coronary artery disease): -no chest pain/sob but does complain of chest heaviness and chronic MENDOZA -initial troponin negative, will trend q6hr x 2 -repeat echocardiogram -continue ASA, Statin, plavix, coreg -No acute cardiac symptoms (5) Diabetes mellitus, type 2: -insulin dependent, takes novolin R and N at home -will consult pharmacy for glycemic management -Blood sugar is controlled (6) Diastolic CHF: -EF 2017 55-60%, failed stress echo at time -underwent left heart cath and received 1 stent to LAD -continue ASA, statin, plavix, coreg -daily weights, strict I and O -Continue hemodialysis -Restrict oral fluid to 1200 mls daily -No acute symptoms of shortness of breath and/or palpitation (7) Hypertension: -blood pressure uncontrolled while in ED, last 182/60 -continue coreg, does not appear to be on any other hypertensives per -will add hydralazine 25mg po q6h prn -monitor and titrate accordingly -Blood pressure seems to be under control (8) Hyperlipidemia: -continue statin (9) History of CVA (cerebrovascular accident): -Hx of right sided thalamic, basal ganglia, posterior parietal and occipital infarct -continue ASA, statin, plavix (10) Chronic anemia: -Hemoglobin and hematocrit stable at 9.6 and 30.3 -Receives Procrit -Monitor CBC -Hemoglobin is 8.8 today (11) Interstitial lung disease: -no acute exac -encourage incentive spirometry (12) KUSHAL (obstructive sleep apnea): -CPAP at (13) GERD (gastroesophageal reflux disease): -continue ranitidine (14) Prolonged Q-T interval on ECG: -QTC 480ms on ecg -monitor and avoid qt prolonging agents if possible (15) DVT prophylaxis: -heparin 5,000 units SQ q8hrs Disposition: Likely d/c to rehab given ambulatory dysfunction, consult case management Follow up: PCP Dr. Golden upon discharge and continue with HD MWF Accepted to [facility] and will be transferred there this afternoon Total Time Total Time Spent Total Time Spent (In Minutes): 35 minutes Total Time Includes: Examination of the Patient, Discharge Planning, Medication Reconciliation and Communication With Other Providers Discharge Plan Discharge Items Patient Disposition: Transfer Detention Fac Reason For Visit: WEAKNESS,AMBULATORY DYSFUNCTION Discharge Diagnosis: Generalized weakness, ambulatory dysfunction, end-stage renal disease on hemodialysis Condition: Good Discharge Goals: Decrease discomfort, Improve function and Increase independence Activity: Resume your previous activity Non-emergency contact: Primary Care Provider Call non-emergency contact if: you have any medication questions and your symptoms worsen Follow-up/Referrals: Yanet Golden MD [Primary Care Provider] - (Please make an appointment with your primary care provider within 7 days following discharge from the facility) Diet: Carb Consistent or DM2 and Dialysis Renal Fluids: 1500ml (6 cups) Addtl Provider Instructions: Please take precaution to avoid fall Prescriptions: Continued atorvastatin 40 mg Tablet 40 mg PO DAILY RF: 0 magnesium oxide 400 mg (241.3 mg magnesium) Tablet 400 mg PO DAILY RF: 0 clopidogrel [Plavix] 75 mg Tablet 75 mg PO DAILY RF: 0 nitroglycerin [Nitrostat] 0.4 mg Tablet, Sublingual 0.4 mg Sublingual UD PRN (Reason: Chest Pain) RF: 0 Triphrocaps 1 mg Capsule 1 cap PO DAILY RF: 0 cholecalciferol (vitamin D3) [Vitamin D3] 5,000 unit Tablet 5,000 unit PO DAILY RF: 0 Novolin N NPH U-100 Insulin 100 unit/mL Suspension 26 unit SUBCUT QAM RF: 0 Novolin N NPH U-100 Insulin 100 unit/mL Suspension 22 unit SUBCUT PM RF: 0 carvedilol 12.5 mg Tablet 12.5 mg PO BID RF: 0 gabapentin 300 mg Capsule 300 mg PO DAILY RF: 0 ranitidine HCl 150 mg Tablet 150 mg PO DAILY RF: 0 aspirin 81 mg Tablet,Delayed Release (Dr/Ec) 81 mg PO DAILY RF: 0 meclizine 25 mg Tablet 25 mg PO TID PRN (Reason: Vertigo) RF: 0 acetaminophen [Tylenol] 325 mg Capsule 650 mg PO QID PRN (Reason: Pain) RF: 0 Liquacel 16-90 gram-kcal/30 mL liquid 30 ml PO BID RF: 0 sevelamer carbonate [Renvela] 800 mg tablet 3 tab PO TID RF: 0 Novolin R Regular U-100 Insuln 100 unit/mL Solution 15 - 30 unit SUBCUT UD RF: 0 Stand-Alone Forms: [facility]/Other Patient Handouts: Hyperglycemia Discharge Orders: Discharge Order (Routine); Ordered 05/08/18 Ordered By: Sinai Collier Skilled Items Patient informed of condition?: Yes DNR: No Discharge Level of Care: Skilled Communicable Disease: No Discharge Prognosis: Stable Admission Data Admit Date/Time: 05/04/18 20:49 Attending Provider: Sinai Collier Admit Provider: Jassi Phan Primary Care Provider: Yanet Golden Other Providers: Jayden Wasserman Rajendra P Service: Telemetry
[2018-05-08] MEDS: HEPARIN SOD 5,000 UNIT/0.5 ML VIAL SQ SCH (10:56)
--- NOTE | 2018-05-13 08:01 | Discharge Summary ---
Date of Service May 13, 2018 Admission HPI Per Admitting Provider This is a 67-year-old female who has a significant past medical history of CAD with history of stent to LAD in 2017, end-stage renal disease on hemodialysis MWF, HTN, HLD, KUSHAL on CPAP, chronic diastolic CHF, T2DM with neuropathy, retinopathy and nephropathy, history of CVA/TIA, interstitial lung disease who presents to [facility] ED secondary to difficulty ambulating and weakness x1 day. Patient's and granddaughter are at bedside. Patient notes symptoms started yesterday morning whenever she was going to dialysis at approximately 7 AM. She had difficulty going down her stairs secondary to leg weakness, unable to hold up patient therefore she was placed on the ground. She did not fall. EMS was called to get patient into car to be transported to hemodialysis. Patient had full treatment of hemodialysis on 05/05; however, continued to have overall generalized weakness and difficulty walking. According to epic records has been reported increased shaking, dizziness, disorientation and was concerned about possible mini stroke due to her history. Patient also notes when she was admitted to [facility] in 10/2017 she had a urinary tract infection which also presented similar. She denies any recent fever but always feels cold, denies any lightheadedness, presyncopal symptoms, upper respiratory symptoms, chest pain, palpitations, shortness of breath at rest. She does elicit to overall chest heaviness over the past 2 to 3 days, "feels like a pressure like something is sitting on my chest, increases with exertion, improves with rest." She denies any libra cough or hemoptysis, nausea, vomiting, abdominal pain, diarrhea. She is mostly anuric but does occasionally urinate. She denies any dysuria or hematuria. Her appetite is, "too good." Denies any significant weight gain. Does not occasionally get swelling but usually improves with dialysis. Does not notice any increased swelling of her bilateral lower extremities. No sick contacts. Admission Exam Per Admitting Provider Vital Signs (Past 24 Hours): Last Vital Signs Temp 36.9 C 05/04/18 14:37 Pulse 74 05/04/18 20:31 Resp 16 05/04/18 20:31 BP 182/60 H 05/04/18 20:31 Pulse Ox 100 05/04/18 20:31 Physical Exam: Gen: WD/WN, morbidly obese, female, NAD, sitting up in bed, pleasant, conversing easily Head: Normocephalic, Atraumatic Eyes: Sclera normal, no conjunctival injection, PERRLA, EOMI ENT: Gross hearing intact, normal pharynx, mucous membranes moist Neck: supple, no adenopathy, No JVD, no bruit, Resp: Clear to auscultation b/l, no wheeze, rales, rhonchi. Normal insp/exp effort, no accessory muscle use CV: Regular rate, regular rhythm, occasional ectopy but no murmur, rub, gallop Abd: Obese abdomen +BS x 4, soft, nontender, nondistended Musculoskeletal: moves extremities active rom x 2 upper extremities, difficult active range of motion to bilateral lower extremities, strength intact 4/5 upper ext, 3/5 lower ext, good rn patient services strength, no clonus Extremities: +1 edema bilaterally, no erythema or warmth, LUE AV Fistula intact Skin: warm, moist, no rash, negative turgor, cap refill < 2sec Neuro: Alert and oriented x 3, speech normal, good mood/affect, cran nerve 2-12 intact grossly : deferred Principal Diagnosis Generalized weakness, ambulatory dysfunction, end-stage renal disease on hemodialysis Discharge Exam Constitutional WD/WN, vitals as above Eyes PERRL, conjunctivae normal, anicteric sclerae ENMT external ear and nose normal, oropharynx normal Neck trachea midline, no thyromegaly Respiratory normal respiratory effort Auscultation: + diminished lung sounds and + crackles (Minimal crackles at the bases); no wheezes Cardiovascular Rate/Rhythm: regular rate and regular rhythm Heart Sounds: normal S1 and normal S2 Gastrointestinal (Abdomen) Inspection/Auscultation: abdomen normal to inspection and normal bowel sounds Percussion/Palpation: abdomen soft; abdomen nontender Musculoskeletal no cyanosis or clubbing, extremities motor strength 5/5 Discharge Data Allergies Allergy/AdvReac Type Severity Reaction Status Date / Time codeine Allergy Intermediate hives Verified 07/03/17 12:49 pioglitazone Allergy Intermediate Rash/Fluid Unverified 07/03/17 12:49 retention morphine Allergy Mild HIVES Verified 07/03/17 12:49 Consultations 05/04/18 20:49 Consult Nephrology Routine 05/04/18 20:50 ED Decision to Admit Stat 05/04/18 23:01 Consult Case Management - Discharge Planning Routine Ordered Studies 05/04/18 15:20 CT head/brain wo con Stat 05/08/18 01:59 CT head/brain wo con Urgent Hospital Course (1) Ambulatory dysfunction: (2) Generalized weakness: This is a 67-year-old female who has a significant past medical history of CAD with history of stent to LAD in 2017, end-stage renal disease on hemodialysis MWF, HTN, HLD, KUSHAL on CPAP, chronic diastolic CHF, T2DM with neuropathy, retinopathy and nephropathy, history of CVA/TIA, interstitial lung disease who presents to [facility] ED secondary to difficulty ambulating and weakness x1 day. -admit to med/surg telemetry -check urinalysis given pt hx of UTI to r/o infectious process-pending -Obtain echocardiogram-pending -trend troponin to rule out acute cardiac process-negative for any ACS -consult nephrology for HD-appreciate input -consult PT/OT to [facility] for rehab -Remains stable and getting stronger -Has been accepted to [facility] for rehab -Remains medically stable to be transferred to [facility] this afternoon -She is agreeable to that (3) ESRD (end stage renal disease) on dialysis: -HD MWF -consult nephrology -Continue hemodialysis as an outpatie (4) CAD (coronary artery disease): -no chest pain/sob but does complain of chest heaviness and chronic MENDOZA -initial troponin negative, will trend q6hr x 2 -repeat echocardiogram -continue ASA, Statin, plavix, coreg -No acute cardiac symptoms (5) Diabetes mellitus, type 2: -insulin dependent, takes novolin R and N at home -will consult pharmacy for glycemic management -Blood sugar is controlled (6) Diastolic CHF: -EF 2017 55-60%, failed stress echo at time -underwent left heart cath and received 1 stent to LAD -continue ASA, statin, plavix, coreg -daily weights, strict I and O -Continue hemodialysis -Restrict oral fluid to 1200 mls daily -No acute symptoms of shortness of breath and/or palpitation (7) Hypertension: -blood pressure uncontrolled while in ED, last 182/60 -continue coreg, does not appear to be on any other hypertensives per -will add hydralazine 25mg po q6h prn -monitor and titrate accordingly -Blood pressure seems to be under control (8) Hyperlipidemia: -continue statin (9) History of CVA (cerebrovascular accident): -Hx of right sided thalamic, basal ganglia, posterior parietal and occipital infarct -continue ASA, statin, plavix (10) Chronic anemia: -Hemoglobin and hematocrit stable at 9.6 and 30.3 -Receives Procrit -Monitor CBC -Hemoglobin is 8.8 today (11) Interstitial lung disease: -no acute exac -encourage incentive spirometry (12) KUSHAL (obstructive sleep apnea): -CPAP at (13) GERD (gastroesophageal reflux disease): -continue ranitidine (14) Prolonged Q-T interval on ECG: -QTC 480ms on ecg -monitor and avoid qt prolonging agents if possible (15) DVT prophylaxis: -heparin 5,000 units SQ q8hrs Disposition: Likely d/c to rehab given ambulatory dysfunction, consult case management Follow up: PCP Dr. Golden upon discharge and continue with HD MWF Accepted to [facility] and will be transferred there this afternoon Total Time Total Time Spent Total Time Spent (In Minutes): 35 minutes Total Time Includes: Examination of the Patient, Discharge Planning, Medication Reconciliation and Communication With Other Providers Discharge Plan Discharge Items Patient Disposition: Transfer Snf Fac Reason For Visit: WEAKNESS,AMBULATORY DYSFUNCTION Discharge Diagnosis: Generalized weakness, ambulatory dysfunction, end-stage renal disease on hemodialysis Condition: Good Discharge Goals: Decrease discomfort, Improve function and Increase independence Activity: Resume your previous activity Non-emergency contact: Primary Care Provider Call non-emergency contact if: you have any medication questions and your symptoms worsen Follow-up/Referrals: Yanet Golden MD [Primary Care Provider] - (Please make an appointment with your primary care provider within 7 days following discharge from the facility) Diet: Carb Consistent or DM2 and Dialysis Renal Fluids: 1500ml (6 cups) Addtl Provider Instructions: Please take precaution to avoid fall Prescriptions: Continued atorvastatin 40 mg Tablet 40 mg PO DAILY RF: 0 magnesium oxide 400 mg (241.3 mg magnesium) Tablet 400 mg PO DAILY RF: 0 clopidogrel [Plavix] 75 mg Tablet 75 mg PO DAILY RF: 0 nitroglycerin [Nitrostat] 0.4 mg Tablet, Sublingual 0.4 mg Sublingual UD PRN (Reason: Chest Pain) RF: 0 Triphrocaps 1 mg Capsule 1 cap PO DAILY RF: 0 cholecalciferol (vitamin D3) [Vitamin D3] 5,000 unit Tablet 5,000 unit PO DAILY RF: 0 Novolin N NPH U-100 Insulin 100 unit/mL Suspension 26 unit SUBCUT QAM RF: 0 Novolin N NPH U-100 Insulin 100 unit/mL Suspension 22 unit SUBCUT PM RF: 0 carvedilol 12.5 mg Tablet 12.5 mg PO BID RF: 0 gabapentin 300 mg Capsule 300 mg PO DAILY RF: 0 ranitidine HCl 150 mg Tablet 150 mg PO DAILY RF: 0 aspirin 81 mg Tablet,Delayed Release (Dr/Ec) 81 mg PO DAILY RF: 0 meclizine 25 mg Tablet 25 mg PO TID PRN (Reason: Vertigo) RF: 0 acetaminophen [Tylenol] 325 mg Capsule 650 mg PO QID PRN (Reason: Pain) RF: 0 Liquacel 16-90 gram-kcal/30 mL liquid 30 ml PO BID RF: 0 sevelamer carbonate [Renvela] 800 mg tablet 3 tab PO TID RF: 0 Novolin R Regular U-100 Insuln 100 unit/mL Solution 15 - 30 unit SUBCUT UD RF: 0 Stand-Alone Forms: [facility]/Other Patient Handouts: Hyperglycemia Discharge Orders: Discharge Order (Routine); Ordered 05/08/18 Ordered By: Sinai Collier Skilled Items Patient informed of condition?: Yes DNR: No Discharge Level of Care: Skilled Communicable Disease: No Discharge Prognosis: Stable Admission Data Admit Date/Time: 05/04/18 20:49 Attending Provider: Chandu Victoria Admit Provider: Jassi Phan Primary Care Provider: Yanet Golden Other Providers: Jayden Wasserman ; Jassi Phan Manabendra Service: Telemetry Other Interventions: Discharge Summary Assessment (RN) Last Done: 05/08/18 13:51 DC Date/Time DO NOT enter until pt leaves facility: 05/08/18 14:08
== END 2018-05-08 14:08 | DRG 947 ==
LOC: ED 14:35 → 2N 20:49 → SUATTDRO 20:49 → 2N 22:34

== ENCOUNTER 2018-05-27 12:06 | Observation (INO) ==
[2018-05-27 12:40] LABS: Basophils # (auto) 0.02 K/uL (0-0.2); Basophils % (auto) 0.2 %; Eosinophils # (auto) 0.08 K/uL (0-0.5); Hematocrit (blood only) 29.7 % (37-47); Hemoglobin 9.4 g/dL (12.0-16.0); Immature Granulocytes # (auto) 0.08 K/uL (0.00-0.02); Lymphocytes # (auto) 1.78 K/uL (1.2-3.4); Lymphocytes % (auto) 21.4 %; Mean Corpuscular Hgb Conc 31.6 g/dL (32-36); Monocytes # (auto) 0.93 K/uL (0.11-0.59); Monocytes % (auto) 11.2 %; Neutrophils # (auto) 5.44 K/uL (1.4-6.5); Neutrophils % (auto) 65.2 %; Platelet Count 198 K/uL (130-400); RDW Coefficient of Variation 20.4 % (11.5-14.5); RDW Standard Deviation 74.5 fL (36.4-46.3); Red Blood Count 2.94 M/uL (4.2-5.4); White Blood Count 8.33 K/uL (4.8-10.8)
--- NOTE | 2018-05-27 12:43 | XRay Report ---
SINGLE VIEW CHEST CLINICAL HISTORY: Dyspnea. FINDINGS: An AP, portable, upright chest radiograph is compared to study dated 05/04/2018. The heart i s mildly enlarged, noting atherosclerotic calcification of the thoracic aorta. The pulmonary vasculat ure is noncongested. The mitral annulus is densely calcified. Chronic interstitial thickening is rafael lar to previous. No airspace consolidation or large pleural effusion is identified No pneumothorax is seen. The skeletal structures are osteopenic. The bony thorax is grossly intact. A right shoulder ar throplasty is in place. IMPRESSION: Cardiomegaly with no acute cardiopulmonary abnormality. Electronically signed by: Abe Tanner M.D. 05/27/2018 12:42 PM
[2018-05-27 12:59] LABS: Stomatocytes 1+; Tear Drop Cells 1+
[2018-05-27 13:10] LABS: HCO3 ABG 31 mmol/L (19-24); Oxygen Saturation ABG 97.1 % (90-95); PCO2 ABG 41 mmHg (35-46); PO2 ABG 109 mm/Hg (80-95); pH ABG 7.49 (7.35-7.45)
[2018-05-27 13:11] LABS: Allen Test Pos (Pos)
[2018-05-27 13:12] LABS: Alanine Aminotransferase 23 U/L (12-78); Albumin Globulin Ratio 0.8 (0.9-2); Albumin Level 3.1 gm/dl (3.4-5.0); Alkaline Phosphatase 83 U/L (45-117); Aspartate Aminotransferase 17 U/L (15-37); Bilirubin,Total 0.6 mg/dl (0.2-1); Blood Urea Nitrogen 28 mg/dl (7-18); Calcium 9.5 mg/dl (8.5-10.1); Carbon Dioxide 30 mmol/L (21-32); Chloride 97 mmol/L (98-107); Est GFR (African American) 6.3; Est GFR (Non-African American) 5.5; Globulin 3.9 gm/dl (2.5-4.0); Glucose 202 mg/dl (70-99); Potassium 3.9 mmol/L (3.5-5.1); Sodium 137 mmol/L (136-145)
[2018-05-27 13:16] LABS: Appearance Urine Turbid (Clear); Bacteria Urine Automated Negative (Negative); Bilirubin Urine Negative (Negative); Blood Urine 1+ (Negative); Color Urine Dark Yellow; Glucose Urine UA Negative (Negative); Ketones Urine Negative (Negative); Leukocyte Esterase Urine 3+ (Negative); Nitrite Urine Negative (Negative); Urobilinogen Urine Negative (Negative); WBC Urine Automated >30 /hpf (0-5); pH Urine 7.5 (4.5-7.5)
[2018-05-27 13:28] LABS: Protein Urine 4+ (Negative)
[2018-05-27 13:30] LABS: Cast Urine Automated >30 /lpf (0-5)
--- NOTE | 2018-05-27 14:02 | Ultrasound Report ---
BILATERAL LOWER EXTREMITY VENOUS DOPPLER HISTORY: Lower extremity edema. Dyspnea COMPARISON STUDY: None. FINDINGS: There is normal compressibility, flow, and augmentation within the bilateral lower extremit y deep venous systems. IMPRESSION: No DVT within the right or left lower extremity. Electronically signed by: Manny Reza M.D. 05/27/2018 2:01 PM
[2018-05-27] MEDS ORDERED: SODIUM CHLORIDE 0.9% 1000ML 250 ML IV ONE (14:09)
[2018-05-27 14:35] LABS: Partial Thromboplastin Ratio 1.1; Partial Thromboplastin Time 28.5 Seconds (21.0-31.0); Prothrombin Time 10.6 Seconds (9.0-12.0)
--- NOTE | 2018-05-27 16:24 | Emergency Department Note ---
Entered by Radha Leon acting as a scribe for Song Aranda MD History of Present Illness General Chief complaint: Leg Weakness, Bilateral Stated complaint: fall / eval Source: patient and EMS History of Present Illness Provider complaint: weakness Onset (ago): minute(s) (shortly prior to arrival) Location: lower extremity, left and right Quality: + other (weakness) Associated symptoms: + denies other symptoms (denies abdominal pain), + confusion and + other (nose bleed, low Oxygen saturation ); no cough and no shortness of breath The patient is a 67 year old female who presents to the Emergency Room with complaints of weakness occurring shortly prior to arrival. She states that her legs gave out getting out of the car after leaving rehab and states that she had to lower herself down. She denies falling or injuring herself. The patient denies having abdominal pain, chest pain, fever, a cough, or shortness of breath. She states that she is on Plavix. The patient states that her last dial ysis was yesterday. Per EMS, the patient was discharged from rehabilitation this morning. EMS states that the patient got out of the car and her legs gave out. EMS states that the patient had a mild transient nose bleed but not head trauma. Per EMS, the patient's O2 sat was 82% and states that the patient's nails were cyanotic and blue. EMS states that the patient was confused. EMS states that the patient was then placed on Oxygen and satting at 99. Per EMS, the patient's BSG was 253. Home Medications Home Medications Medication Instructions Recorded Confirmed Type Novolin N NPH U-100 Insulin 22 unit SUBCUT PM 10/29/17 05/27/18 History Novolin N NPH U-100 Insulin 26 unit SUBCUT QAM 10/29/17 05/27/18 History aspirin 81 mg PO DAILY 10/29/17 05/27/18 History atorvastatin 40 mg PO DAILY 10/29/17 05/27/18 History cholecalciferol (vitamin D3) 5,000 unit PO DAILY 10/29/17 05/27/18 History [Vitamin D3] clopidogrel [Plavix] 75 mg PO DAILY 10/29/17 05/27/18 History gabapentin 300 mg PO DAILY 10/29/17 05/27/18 History magnesium oxide 400 mg PO DAILY 10/29/17 05/27/18 History meclizine 25 mg PO TID PRN 10/29/17 05/27/18 History nitroglycerin [Nitrostat] 0.4 mg SUBLINGUAL UD PRN 10/29/17 05/27/18 History ranitidine HCl 150 mg PO DAILY 10/29/17 05/27/18 History acetaminophen [Tylenol] 650 mg PO QID PRN 05/04/18 05/27/18 History sevelamer carbonate [Renvela] 2,400 mg PO TID 05/04/18 05/27/18 History B complex with C#20-folic acid 1 cap PO DAILY 05/27/18 05/27/18 History [Nephrocaps] carvedilol 6.25 mg PO BID 05/27/18 05/27/18 History darbepoetin nichelle in polysorbat 100 mcg SUBCUT WK 05/27/18 05/27/18 History [Aranesp (in polysorbate)] docusate sodium 100 mg PO BID 05/27/18 05/27/18 History Allergies Allergy/AdvReac Type Severity Reaction Status Date / Time codeine Allergy Intermediate hives Verified 05/27/18 13:00 pioglitazone Allergy Intermediate Rash/Fluid Unverified 05/27/18 13:00 retention morphine Allergy Mild HIVES Verified 05/27/18 13:00 Past Med/Surg History Medical History Anemia, chronic renal failure Secondary hyperparathyroidism (of renal origin) CAD (coronary artery disease) (Chronic) LAD x 1 11/2016 Diabetic peripheral neuropathy (Chronic) Diabetes mellitus with neuropathy (Chronic) AV fistula (Chronic) ESRD (end stage renal disease) on dialysis (Chronic) Hyperlipidemia (Chronic) Hypertension (Chronic) Interstitial lung disease (Chronic) Depression (Chronic) Anxiety (Chronic) KUSHAL (obstructive sleep apnea) (Chronic) "CPAP HS" GERD (gastroesophageal reflux disease) (Chronic) Diastolic CHF (Chronic) Hx of migraines (Chronic) Chronic anemia (Chronic) Diabetes mellitus, type 2 (Chronic) CKD (chronic kidney disease), stage IV (Chronic) Callus (Acute) Hallux abducto valgus, bilateral (Acute) Surgical History History of coronary artery stent placement (Chronic) History of (Chronic) History of cholecystectomy (Chronic) Status post laser trabeculoplasty of eye (Chronic) History of bilateral cataract extraction (Chronic) Hx of total knee replacement (Chronic) Hx of shoulder surgery (Chronic) Family History Father Stomach cancer Other Coronary heart disease Diabetes Hypertension Social History Preferred Language: Burmese Communication Ability: Effective Beliefs That Will Affect Care: Amish Amish Beliefs: "Nazarene" marital status: Current Living Situation: Spouse Feels Safe at Home: Yes Smoking Status: Unknown if ever smoked Hx Alcohol Use: No Hx Substance Use: No Review of Systems See HPI for pertinent positives & negatives. and A total of 10 systems reviewed and were otherwise negative Physical Exam Vital Signs Vital Signs - 24 hr 05/27/18 12:57 05/27/18 14:09 05/27/18 14:31 Temperature 37.5 C Temperature Source Oral Sepsis Recent Fever Within 48 Hours No Sepsis Action Taken by Nursing No Action Required Pulse Rate 76 Pulse Rate [Bilateral] 71 73 75 Pulse Rhythm Regular Respiratory Rate 18 18 18 Respiratory Effort / Characteristics Respiratory Depth Normal Respiratory Pattern Blood Pressure 98/45 L Blood Pressure [Left Arm] 87/41 L 105/48 L Blood Pressure Mean 62 Blood Pressure Mean [Left Arm] 56 67 Blood Pressure Position [Left Arm] Lying Lying Pulse Oximetry 98 94 82 L Oxygen Delivery Method Nasal Cannula Room Air Room Air Oxygen Flow Rate 2 05/27/18 14:32 05/27/18 15:18 Temperature Temperature Source Sepsis Recent Fever Within 48 Hours Sepsis Action Taken by Nursing Pulse Rate Pulse Rate [Bilateral] 73 Pulse Rhythm Respiratory Rate 15 Respiratory Effort / Characteristics Non-Labored Respiratory Depth Normal Respiratory Pattern Regular Blood Pressure Blood Pressure [Left Arm] 105/48 L 105/48 L Blood Pressure Mean Blood Pressure Mean [Left Arm] 67 67 Blood Pressure Position [Left Arm] Lying Pulse Oximetry 98 100 Oxygen Delivery Method Nasal Cannula Nasal Cannula Oxygen Flow Rate 2 2 Constitutional: Vital signs reviewed. Eyes: Pupils are equal round reactive to light. Conjunctiva are noninjected. ENT: Pharynx is clear without erythema or exudate. Mucous membranes are moist. Neck supple without meningeal signs. Respiratory: Clear to auscultation bilaterally. Breath sounds are equal bilaterally. Cardiovascular: Regular rate and rhythm. No rubs or gallops. GI: Soft, nondistended and nontender. Bowel sounds are present. Musculoskeletal: No peripheral edema. No lower extremity tenderness. Integumentary: Cyanosis to nailbeds. Neurological: The patient is awake and alert. No focal deficits. Psychiatric: Normal affect. Course 1212: The patient was evaluated in room A2, and a complete history and physical examination were performed. 1409: I checked on the patient. Her blood pressure is now 80s systolic. She said that this is normal for her and that she normally has low blood pressure. 1413: I discussed the patient's case with Jessa Garcia, admitting to Dr. Hall, who will evaluate the patient for further management. 1438: I took the patient off of Oxygen and her sats dropped to 82% on room air while sleeping. I placed her back on Oxygen. I ran into Dr. Hall and discussed the patient's case with im. Her blood pressure is up to 105 systolic. Consultations Consultation #1: Jessa Garcia Time: 14:13 Administered Medications Discontinued Medications Sodium Chloride (Nss 1000ml) 250 mls @ 999 mls/hr IV .Q16M ONE Stop: 05/27/18 14:24 Last Infusion: 05/27/18 14:36 Dose: 0 mls/hr Documented by: [id number] Admin: 05/27/18 14:18 Dose: 999 mls/hr Documented by: [id number] Medical Decision Making Differential Diagnosis The patient is a 67 year old female who presents to the ED with weakness. Differential diagnosis includes PNA, PE, DVT, anemia, and cardiac. Medical Records Attestation: I reviewed the patient's medical records. I did perform a limited focused review of portions of the patient's old chart on the electronic medical record. The patient was admitted on May 04 and discharged on May 13 for generalized weakness and ambulatory dysfunction. She was transferred to [facility]. She has a history of CAD, diabetes, heart failure, ESRD, and HTN. Home Medications Current Medication List: was personally reviewed by me Laboratory Data Attestation: I reviewed the patient's lab results. Result diagrams: 05/27/18 12:30 05/27/18 12:30 Lab Results 05/27/18 05/27/18 05/27/18 Range/Units 12:30 12:30 12:30 WBC 8.33 (4.8-10.8) K/uL RBC 2.94 L (4.2-5.4) M/uL Hgb 9.4 L (12.0-16.0) g/dL Hct 29.7 L (37-47) % MCV 101.0 H (80-100) fL MCH 32.0 (25-34) pg MCHC 31.6 L (32-36) g/dL RDW Std Deviation 74.5 H (36.4-46.3) fL RDW Coeff of Cori 20.4 H (11.5-14.5) % Plt Count 198 (130-400) K/uL MPV 10.0 (7.4-10.4) fL Immature Gran % (Auto) 1.0 % Neut % (Auto) 65.2 % Lymph % (Auto) 21.4 % [place] % (Auto) 11.2 % Eos % (Auto) 1.0 % Baso % (Auto) 0.2 % Immature Gran # (Auto) 0.08 H (0.00-0.02) K/uL Neut # (Auto) 5.44 (1.4-6.5) K/uL Lymph # (Auto) 1.78 (1.2-3.4) K/uL [place] # (Auto) 0.93 H (0.11-0.59) K/uL Eos # (Auto) 0.08 (0-0.5) K/uL Baso # (Auto) 0.02 (0-0.2) K/uL Tear Drop Cells 1+ Stomatocytes 1+ PT Cancelled INR Cancelled APTT Cancelled PTT Ratio Cancelled ABG pH (7.35-7.45) ABG pCO2 (35-46) mmHg ABG pO2 (80-95) mm/Hg ABG HCO3 (19-24) mmol/L ABG O2 Saturation (90-95) % ABG Base Excess (-9-1.8) mEq/L Mane Test (Pos) Barometric Pressure mm/Hg Oxygen Given Sodium 137 (136-145) mmol/L Potassium 3.9 (3.5-5.1) mmol/L Chloride 97 L (98-107) mmol/L Carbon Dioxide 30 (21-32) mmol/L Anion Gap 10.0 (3-11) BUN 28 H (7-18) mg/dl Creatinine 7.03 H* (0.6-1.2) mg/dl Est Cr Clr Drug Dosing Not Reportable Est GFR ( Amer) 6.3 Est GFR (Non-Af Amer) 5.5 BUN/Creatinine Ratio 4.0 L (10-20) Glucose 202 H (70-99) mg/dl Calcium 9.5 (8.5-10.1) mg/dl Total Bilirubin 0.6 (0.2-1) mg/dl AST 17 (15-37) U/L ALT 23 (12-78) U/L Alkaline Phosphatase 83 (45-117) U/L POC Troponin I (0-0.045) ng/ml Total Protein 7.0 (6.4-8.2) gm/dl Albumin 3.1 L (3.4-5.0) gm/dl Globulin 3.9 (2.5-4.0) gm/dl Albumin/Globulin Ratio 0.8 L (0.9-2) Urine Color Urine Appearance (Clear) Urine pH (4.5-7.5) Ur Specific [place] (1.000-1.030) Urine Protein (Negative) Urine Glucose (UA) (Negative) Urine Ketones (Negative) Urine Blood (Negative) Urine Nitrite (Negative) Urine Bilirubin (Negative) Urine Urobilinogen (Negative) Ur Leukocyte Esterase (Negative) Urine WBC (Auto) (0-5) /hpf Urine RBC (Auto) (0-4) /hpf U Hyaline Cast (Auto) (0-5) /lpf U Epithel Cells (Auto) (0-5) /lpf Urine Bacteria (Auto) (Negative) Urine Yeast 05/27/18 05/27/18 05/27/18 Range/Units 12:55 12:57 14:17 WBC (4.8-10.8) K/uL RBC (4.2-5.4) M/uL Hgb (12.0-16.0) g/dL Hct (37-47) % MCV (80-100) fL MCH (25-34) pg MCHC (32-36) g/dL RDW Std Deviation (36.4-46.3) fL RDW Coeff of Cori (11.5-14.5) % Plt Count (130-400) K/uL MPV (7.4-10.4) fL Immature Gran % (Auto) % Neut % (Auto) % Lymph % (Auto) % [place] % (Auto) % Eos % (Auto) % Baso % (Auto) % Immature Gran # (Auto) (0.00-0.02) K/uL Neut # (Auto) (1.4-6.5) K/uL Lymph # (Auto) (1.2-3.4) K/uL [place] # (Auto) (0.11-0.59) K/uL Eos # (Auto) (0-0.5) K/uL Baso # (Auto) (0-0.2) K/uL Tear Drop Cells Stomatocytes PT 10.6 INR 1.0 APTT 28.5 PTT Ratio 1.1 ABG pH 7.49 H (7.35-7.45) ABG pCO2 41 (35-46) mmHg ABG pO2 109 H (80-95) mm/Hg ABG HCO3 31 H (19-24) mmol/L ABG O2 Saturation 97.1 H (90-95) % ABG Base Excess 6.6 H (-9-1.8) mEq/L Mane Test Pos (Pos) Barometric Pressure 728.9 mm/Hg Oxygen Given 2 L Sodium (136-145) mmol/L Potassium (3.5-5.1) mmol/L Chloride (98-107) mmol/L Carbon Dioxide (21-32) mmol/L Anion Gap (3-11) BUN (7-18) mg/dl Creatinine (0.6-1.2) mg/dl Est Cr Clr Drug Dosing Est GFR ( Amer) Est GFR (Non-Af Amer) BUN/Creatinine Ratio (10-20) Glucose (70-99) mg/dl Calcium (8.5-10.1) mg/dl Total Bilirubin (0.2-1) mg/dl AST (15-37) U/L ALT (12-78) U/L Alkaline Phosphatase (45-117) U/L POC Troponin I < 0.03 (0-0.045) ng/ml Total Protein (6.4-8.2) gm/dl Albumin (3.4-5.0) gm/dl Globulin (2.5-4.0) gm/dl Albumin/Globulin Ratio (0.9-2) Urine Color Urine Appearance (Clear) Urine pH (4.5-7.5) Ur Specific [place] (1.000-1.030) Urine Protein (Negative) Urine Glucose (UA) (Negative) Urine Ketones (Negative) Urine Blood (Negative) Urine Nitrite (Negative) Urine Bilirubin (Negative) Urine Urobilinogen (Negative) Ur Leukocyte Esterase (Negative) Urine WBC (Auto) (0-5) /hpf Urine RBC (Auto) (0-4) /hpf U Hyaline Cast (Auto) (0-5) /lpf U Epithel Cells (Auto) (0-5) /lpf Urine Bacteria (Auto) (Negative) Urine Yeast 05/27/18 Range/Units Unknown WBC (4.8-10.8) K/uL RBC (4.2-5.4) M/uL Hgb (12.0-16.0) g/dL Hct (37-47) % MCV (80-100) fL MCH (25-34) pg MCHC (32-36) g/dL RDW Std Deviation (36.4-46.3) fL RDW Coeff of Cori (11.5-14.5) % Plt Count (130-400) K/uL MPV (7.4-10.4) fL Immature Gran % (Auto) % Neut % (Auto) % Lymph % (Auto) % [place] % (Auto) % Eos % (Auto) % Baso % (Auto) % Immature Gran # (Auto) (0.00-0.02) K/uL Neut # (Auto) (1.4-6.5) K/uL Lymph # (Auto) (1.2-3.4) K/uL [place] # (Auto) (0.11-0.59) K/uL Eos # (Auto) (0-0.5) K/uL Baso # (Auto) (0-0.2) K/uL Tear Drop Cells Stomatocytes PT INR APTT PTT Ratio ABG pH (7.35-7.45) ABG pCO2 (35-46) mmHg ABG pO2 (80-95) mm/Hg ABG HCO3 (19-24) mmol/L ABG O2 Saturation (90-95) % ABG Base Excess (-9-1.8) mEq/L Mane Test (Pos) Barometric Pressure mm/Hg Oxygen Given Sodium (136-145) mmol/L Potassium (3.5-5.1) mmol/L Chloride (98-107) mmol/L Carbon Dioxide (21-32) mmol/L Anion Gap (3-11) BUN (7-18) mg/dl Creatinine (0.6-1.2) mg/dl Est Cr Clr Drug Dosing Est GFR ( Amer) Est GFR (Non-Af Amer) BUN/Creatinine Ratio (10-20) Glucose (70-99) mg/dl Calcium (8.5-10.1) mg/dl Total Bilirubin (0.2-1) mg/dl AST (15-37) U/L ALT (12-78) U/L Alkaline Phosphatase (45-117) U/L POC Troponin I (0-0.045) ng/ml Total Protein (6.4-8.2) gm/dl Albumin (3.4-5.0) gm/dl Globulin (2.5-4.0) gm/dl Albumin/Globulin Ratio (0.9-2) Urine Color Dark Yellow Urine Appearance Turbid H (Clear) Urine pH 7.5 (4.5-7.5) Ur Specific [place] 1.020 (1.000-1.030) Urine Protein 4+ H (Negative) Urine Glucose (UA) Negative (Negative) Urine Ketones Negative (Negative) Urine Blood 1+ H (Negative) Urine Nitrite Negative (Negative) Urine Bilirubin Negative (Negative) Urine Urobilinogen Negative (Negative) Ur Leukocyte Esterase 3+ H (Negative) Urine WBC (Auto) >30 H (0-5) /hpf Urine RBC (Auto) 5-10 H (0-4) /hpf U Hyaline Cast (Auto) >30 H (0-5) /lpf U Epithel Cells (Auto) 5-10 H (0-5) /lpf Urine Bacteria (Auto) Negative (Negative) Urine Yeast Not Reportable Imaging Data Radiologist's Impression: Radiology results as stated below per my review and the radiologist's interpretation: SINGLE VIEW CHEST CLINICAL HISTORY: Dyspnea. FINDINGS: An AP, portable, upright chest radiograph is compared to study dated 05/04/2018. The heart is mildly enlarged, noting atherosclerotic calcification of the thoracic aorta. The pulmonary vasculature is noncongested. The mitral annulus is densely calcified. Chronic interstitial thickening is similar to previous. No airspace consolidation or large pleural effusion is identified No pneumothorax is seen. The skeletal structures are osteopenic. The bony thorax is grossly intact. A right shoulder arthroplasty is in place. IMPRESSION: Cardiomegaly with no acute cardiopulmonary abnormality. Electronically signed by: Abe Tanner M.D. 05/27/2018 12:42 PM BILATERAL LOWER EXTREMITY VENOUS DOPPLER HISTORY: Lower extremity edema. Dyspnea COMPARISON STUDY: None. FINDINGS: There is normal compressibility, flow, and augmentation within the bilateral lower extremity deep venous systems. IMPRESSION: No DVT within the right or left lower extremity. Electronically signed by: Manny Reza M.D. 05/27/2018 2:01 PM ECG Data Attestation: I personally reviewed and interpreted this ECG as follows: Indication: weakness Rate (beats per minute): 73 Rhythm: normal sinus Findings: + Q waves (in septal leads) and + ST elevation (less than 1 mm in aVL); no PVC Comparison ECG Date: from (April 2018) Change: no significant change Blood Pressure Blood Pressure Findings: Elevated blood pressure Blood Pressure Disposition: Referred to patients primary care provider MDM Narrative I did evaluate the patient as noted above. The patient is presenting with generalized weakness. She was noted by EMS to be hypoxic. She is slightly cyanotic in her nailbeds here but there is no evidence of central cyanosis. She was placed on supplemental oxygen. She has no complaints other than feeling weak. The patient was placed on a continuous radiographer cardiac catheterization. She has slightly hypotensive. But she states that her blood pressures are normally low. I did review the old chart and noted no significant trend of hypotension. I did order and personally review the patient's 12-lead EKG as described above. She has some nonspecific changes which were present on her previous EKG. I did order and personally reviewed the images of the patient's chest x-ray as described above. There is no evidence of acute cardiopulmonary process. I did order a urine analysis. I did order and review the patient's blood work as noted in the electronic medical record. She has anemia. Her creatinine is over 7 but her potassium is normal. Troponin is negative. ABG demonstrates a PaO2 of 109 on 2 L. I was unable to obtain a CT of the chest to rule out PE. I therefore ordered a stat bedside Doppler ultrasound of the lower extremities. I did re view the images myself as well as the radiology report as described above. There is no evidence of pulmonary embolism. I did reassess the patient. Her blood pressure dropped further and so she was given normal saline IV. Her blood pressure did improve. I did discuss the test results with the patient. I did recommend hospitalization for further further evaluation. I did discuss the case with the hospitalist and case operator. Impression & Plan Hypotension, Hypoxia, End-stage renal disease (ESRD) Critical Care Time I have personally spent 35 minutes of critical care time in the direct ma nagement of this patient. This includes bedside care, interpretation of diagnostic studies and testing, discussion with consultants and patient, and other required patient management activities. This time is in excess of all separately billable procedures. Discharge Plan Visit Data Chief Complaint: Leg Weakness, Bilateral Stated Complaint: fall / eval ED Provider: Song Aranda Discharge Problem: Hypotension, Hypoxia, End-stage renal disease (ESRD) Patient Disposition: Being Evaluated by Hospitalist Forms Stand Alone Forms: My [facility] Prescriptions Prescriptions: No Action carvedilol 6.25 mg Tablet 6.25 mg PO BID RF: 0 docusate sodium 100 mg Capsule 100 mg PO BID RF: 0 Nephrocaps 1 mg Capsule 1 cap PO DAILY RF: 0 Aranesp (in polysorbate) 100 mcg/0.5 mL Syringe 100 mcg subcut WK RF: 0 atorvastatin 40 mg Tablet 40 mg PO DAILY RF: 0 magnesium oxide 400 mg (241.3 mg magnesium) Tablet 400 mg PO DAILY RF: 0 clopidogrel [Plavix] 75 mg Tablet 75 mg PO DAILY RF: 0 nitroglycerin [Nitrostat] 0.4 mg Tablet, Sublingual 0.4 mg Sublingual UD PRN (Reason: Chest Pain) RF: 0 cholecalciferol (vitamin D3) [Vitamin D3] 5,000 unit Tablet 5,000 unit PO DAILY RF: 0 Novolin N NPH U-100 Insulin 100 unit/mL Suspension 26 unit SUBCUT QAM RF: 0 Novolin N NPH U-100 Insulin 100 unit/mL Suspension 22 unit SUBCUT PM RF: 0 gabapentin 300 mg Capsule 300 mg PO DAILY RF: 0 ranitidine HCl 150 mg Tablet 150 mg PO DAILY RF: 0 aspirin 81 mg Tablet,Delayed Release (Dr/Ec) 81 mg PO DAILY RF: 0 meclizine 25 mg Tablet 25 mg PO TID PRN (Reason: Vertigo) RF: 0 acetaminophen [Tylenol] 325 mg Capsule 650 mg PO QID PRN (Reason: Pain) RF: 0 sevelamer carbonate [Renvela] 800 mg tablet 2,400 mg PO TID RF: 0 Referrals Referrals: Yanet Golden MD [Primary Care Provider] - Discharge Problem: Hypotension Qualifiers: Hypotension type: unspecified hypotension type Qualified Code(s): I95.9 - Hypotension, unspecified The scribe's documentation has been prepared under my direction and personally reviewed by me in its entirety. I confirm that the note above accurately reflects all work, treatment, procedures, and medical decision making performed by me.
[2018-05-27] MEDS ORDERED: DEXTROSE 50% 50 ML SYRINGE IV PRN (16:56)
[2018-05-27] MEDS ORDERED: GLUCOSE 40% GEL 15 GM TUBE PO PRN (16:56)
[2018-05-27] MEDS ORDERED: ACETAMINOPHEN 325 MG TAB PO PRN (16:56)
[2018-05-27] MEDS ORDERED: GLUCAGON FOR INJ 1 MG VIAL SQ PRN (16:56)
[2018-05-27] MEDS ORDERED: GLUCOSE 10 TABS/TUBE PO PRN (16:56)
[2018-05-27] MEDS ORDERED: NITROGLYCERIN SL 0.4 MG/TAB TAB SL PRN (16:56)
[2018-05-27] MEDS ORDERED: CARBOHYDRATES FOR HYPOGLYCEMIA PO PRN (16:56)
[2018-05-27] MEDS ORDERED: PIPERACILL/TAZOBAC CONSULT ACTIVE PRN (17:05)
[2018-05-27] MEDS ORDERED: PIPERACILLIN/TAZOBACTAM 3.375 GM in DEXTROSE 5% 100 ML IV ONE (17:30)
--- NOTE | 2018-05-27 17:33 | Nephrology Consultation ---
Date of Consultation May 27, 2018 Assessment & Plan (1) End-stage renal disease (ESRD): no indication for urgent HD today. reassess in am balancing need for clearance w/ need for UF if any. tomorrow is her dialysis day -continue binders when taking po -ensure renal vitamin Present on Admission?: Yes (2) Hypotension: ensure hold parameters on coreg; hgb stable; no leukocytosis on cbc; on zosyn for ? uti - pt is oligoanuric. not likely bacteremia related to dialysis access > uses avf -use boluses of NS in 250 mL amounts to keep sbp at least in 90s Present on Admission?: Yes (3) Anemia, chronic renal failure: ordered iron studies for am Present on Admission?: Yes History of Present Illness Reason for Consultation: esrd on dialysis Requesting Physician: Dr Collier Attending Physician: Sinai Collier MD History of Present Illness 67 y/o F under observation today for hypoxia to high 80s on RA and worsening hypotension, weakness after her legs gave out while climbing stairs at home on return trip after long stay at rehab/[facility]. She dialyzes MWF via AVF under my care and has had 2 full txs this week. her SBP are in 80-low 100s currently even after small fluid resuscitation; usually run 110-120s on last admission late last month. she is oligoanuric; hgb in 8s; K 3.9. she takes very low dose coreg as OP. she is alert, on 02nc, w/ no complaints except frustration about having to be here. states she can't understand what happened Allergies Allergy/AdvReac Type Severity Reaction Status Date / Time codeine Allergy Intermediate hives Verified 05/27/18 13:00 pioglitazone Allergy Intermediate Rash/Fluid Unverified 05/27/18 13:00 retention morphine Allergy Mild HIVES Verified 05/27/18 13:00 Home Medications Home Medications Medication Instructions Recorded Confirmed Type Novolin N NPH U-100 Insulin 22 unit SUBCUT PM 10/29/17 05/27/18 History Novolin N NPH U-100 Insulin 26 unit SUBCUT QAM 10/29/17 05/27/18 History aspirin 81 mg PO DAILY 10/29/17 05/27/18 History atorvastatin 40 mg PO DAILY 10/29/17 05/27/18 History cholecalciferol (vitamin D3) 5,000 unit PO DAILY 10/29/17 05/27/18 History [Vitamin D3] clopidogrel [Plavix] 75 mg PO DAILY 10/29/17 05/27/18 History gabapentin 300 mg PO DAILY 10/29/17 05/27/18 History magnesium oxide 400 mg PO DAILY 10/29/17 05/27/18 History meclizine 25 mg PO TID PRN 10/29/17 05/27/18 History nitroglycerin [Nitrostat] 0.4 mg SUBLINGUAL UD PRN 10/29/17 05/27/18 History ranitidine HCl 150 mg PO DAILY 10/29/17 05/27/18 History acetaminophen [Tylenol] 650 mg PO QID PRN 05/04/18 05/27/18 History sevelamer carbonate [Renvela] 2,400 mg PO TID 05/04/18 05/27/18 History B complex with C#20-folic acid 1 cap PO DAILY 05/27/18 05/27/18 History [Nephrocaps] carvedilol 6.25 mg PO BID 05/27/18 05/27/18 History darbepoetin nichelle in polysorbat 100 mcg SUBCUT WK 05/27/18 05/27/18 History [Aranesp (in polysorbate)] docusate sodium 100 mg PO BID 05/27/18 05/27/18 History Patient History Medical History Anemia, chronic renal failure Secondary hyperparathyroidism (of renal origin) CAD (coronary artery disease) (Chronic) LAD x 1 11/2016 Diabetic peripheral neuropathy (Chronic) Diabetes mellitus with neuropathy (Chronic) AV fistula (Chronic) ESRD (end stage renal disease) on dialysis (Chronic) Hyperlipidemia (Chronic) Hypertension (Chronic) Interstitial lung disease (Chronic) Depression (Chronic) Anxiety (Chronic) KUSHAL (obstructive sleep apnea) (Chronic) "CPAP HS" GERD (gastroesophageal reflux disease) (Chronic) Diastolic CHF (Chronic) Hx of migraines (Chronic) Chronic anemia (Chronic) Diabetes mellitus, type 2 (Chronic) CKD (chronic kidney disease), stage IV (Chronic) Callus (Acute) Hallux abducto valgus, bilateral (Acute) Surgical History History of coronary artery stent placement (Chronic) History of (Chronic) History of cholecystectomy (Chronic) Status post laser trabeculoplasty of eye (Chronic) History of bilateral cataract extraction (Chronic) Hx of total knee replacement (Chronic) Hx of shoulder surgery (Chronic) Family History Father Stomach cancer Other Coronary heart disease Diabetes Hypertension Social History Preferred Language: Thai Communication Ability: Effective Testing Specialist Required: No Beliefs That Will Affect Care: None marital status: Current Living Situation: Spouse Feels Safe at Home: Yes Safety Concerns: Feels Safe At This Time Smoking Status: Never smoker Second Hand Exposure: No Hx Alcohol Use: No Hx Substance Use: No Review of Systems Review of Systems: All systems reviewed & are unremarkable except as noted in HPI & below Constitutional: + weakness; no fever Respiratory: no cough, no dyspnea and no pain on inspiration Genitourinary: voids small amount every other day at most; urine specimen is a straight cath; no change in chronic voiding habits Musculoskeletal: + muscle weakness; no back pain and no joint pain Integumentary: + lesions (abrasion on knees); no rash and no non-healing lesions Psychiatric: + depression Physical Exam Constitutional: well developed, well nourished and + obese eating heartily on 02nc in bed Eyes: EOM intact bilaterally ENMT: Ears: no external ear abnormality Nose: no external nose abnormality Mouth: + dry oral mucous membranes Neck: no nuchal rigidity Respiratory: normal respiratory effort Auscultation: + diminished lung sounds Cardiovascular: RRR, no murmur, no edema Extremities: + AV fistula (+ t/b LUE) Gastrointestinal (Abdomen): Inspection/Auscultation: normal bowel sounds Percussion/Palpation: abdomen soft; abdomen nontender Musculoskeletal: Extremities: strength 5/5 throughout Skin: no rashes, warm and dry Trauma: + abrasion (R knee) Neurologic: lewis, fluent speech, no tremor Psychiatric: Orientation: alert and oriented x 3 Speech: normal rate/rhythm/volume of speech Affect: + depressed affect Results & Data Vital Signs (Past 12 Hours) Vital Signs Temp Pulse Pulse Resp BP BP BP 05/27/18 16:43 36.6 C 76 18 98/64 L 05/27/18 16:24 71 20 95/46 L 05/27/18 15:18 73 15 105/48 L 05/27/18 14:32 105/48 L 05/27/18 14:31 75 18 105/48 L 05/27/18 14:09 73 18 87/41 L 05/27/18 12:57 37.5 C 76 71 18 98/45 L Pulse Ox 05/27/18 16:43 100 05/27/18 16:24 100 05/27/18 15:18 100 05/27/18 14:32 98 05/27/18 14:31 82 L 05/27/18 14:09 94 05/27/18 12:57 98 Laboratory Results Abnormal lab results 05/27/18 05/27/18 05/27/18 Range/Units 12:30 12:30 12:55 RBC 2.94 L (4.2-5.4) M/uL Hgb 9.4 L (12.0-16.0) g/dL Hct 29.7 L (37-47) % MCV 101.0 H (80-100) fL MCHC 31.6 L (32-36) g/dL RDW Std Deviation 74.5 H (36.4-46.3) fL RDW Coeff of Cori 20.4 H (11.5-14.5) % Immature Gran # (Auto) 0.08 H (0.00-0.02) K/uL Millard # (Auto) 0.93 H (0.11-0.59) K/uL ABG pH 7.49 H (7.35-7.45) ABG pO2 109 H (80-95) mm/Hg ABG HCO3 31 H (19-24) mmol/L ABG O2 Saturation 97.1 H (90-95) % ABG Base Excess 6.6 H (-9-1.8) mEq/L Chloride 97 L (98-107) mmol/L BUN 28 H (7-18) mg/dl Creatinine 7.03 H* (0.6-1.2) mg/dl BUN/Creatinine Ratio 4.0 L (10-20) Glucose 202 H (70-99) mg/dl Albumin 3.1 L (3.4-5.0) gm/dl Albumin/Globulin Ratio 0.8 L (0.9-2) Urine Appearance (Clear) Urine Protein (Negative) Urine Blood (Negative) Ur Leukocyte Esterase (Negative) Urine WBC (Auto) (0-5) /hpf Urine RBC (Auto) (0-4) /hpf U Hyaline Cast (Auto) (0-5) /lpf U Epithel Cells (Auto) (0-5) /lpf 05/27/18 Range/Units Unknown RBC (4.2-5.4) M/uL Hgb (12.0-16.0) g/dL Hct (37-47) % MCV (80-100) fL MCHC (32-36) g/dL RDW Std Deviation (36.4-46.3) fL RDW Coeff of Cori (11.5-14.5) % Immature Gran # (Auto) (0.00-0.02) K/uL Millard # (Auto) (0.11-0.59) K/uL ABG pH (7.35-7.45) ABG pO2 (80-95) mm/Hg ABG HCO3 (19-24) mmol/L ABG O2 Saturation (90-95) % ABG Base Excess (-9-1.8) mEq/L Chloride (98-107) mmol/L BUN (7-18) mg/dl Creatinine (0.6-1.2) mg/dl BUN/Creatinine Ratio (10-20) Glucose (70-99) mg/dl Albumin (3.4-5.0) gm/dl Albumin/Globulin Ratio (0.9-2) Urine Appearance Turbid H (Clear) Urine Protein 4+ H (Negative) Urine Blood 1+ H (Negative) Ur Leukocyte Esterase 3+ H (Negative) Urine WBC (Auto) >30 H (0-5) /hpf Urine RBC (Auto) 5-10 H (0-4) /hpf U Hyaline Cast (Auto) >30 H (0-5) /lpf U Epithel Cells (Auto) 5-10 H (0-5) /lpf Diagnostic Findings cxr > cardiomegaly, no acute cp abnormality LE dopplers> no dvt (1) Anemia, chronic renal failure Chronic kidney disease stage: stage 5 Qualified Code(s): N18.5 - Chronic kidney disease, stage 5; D63.1 - Anemia in chronic kidney disease (2) Hypotension Hypotension type: unspecified hypotension type Qualified Code(s): I95.9 - Hypotension, unspecified
[2018-05-27] MEDS: SEVELAMER HCL 800 MG TABLET PO SCH (18:22)
[2018-05-27] MEDS: INSULIN ASPART 100 UNITS/ML 3 ML PEN SC SCH ×2 (18:41→20:57)
--- NOTE | 2018-05-27 18:51 | History & Physical Report ---
Date of Service May 27, 2018 Assessment & Plan (1) Hypotension: (2) Generalized weakness: Patient with recent hospitalization 05/04/18-05/08/18 for generalized weakness, ambulatory dysfunction and was discharged to [facility]. Patient states while at [facility] was using a walker for approximately 50 feet and using wheelchair for longer distances. She was discharged home today. Patient states got out of car and walked to her steps when her legs became very weak and patient states she slid herself to the ground. EMS arrived and it is reported that patient was hypoxic in the 80s and BP 83/28. Patient was given 500 mL NSS. It is reported her blood sugar at that time was 253. In ER and is reported patient is very weak. She was given an additional 250 mL NSS. Patient afebrile, P: 76, R: 18, BP 98/45, 92% on room air had noted to drop to 82% on room air up to 100% on 2 L nasal cannula. WBC: 8, glucose: 202. CXR: No acute changes. UA: No nitrates, 3+ leuk, >30 WBD, epithel 5-10, negative bacteria ?UTI. Hx e coli ESBL in past. -pending urine culture, blood culture -zosyn -monitor BP closely -PT/OT consult (3) Hypoxia: Noted on patient's chart with history of interstitial lung disease. Patient is not on any medications or home oxygen. Denies any chest pain, shortness of breath, wheezing, cough, fever or chills CXR: No acute changes No infiltrate noted. Does not appear volume overloaded. R/O PE. DDx: interst itial lung disease, obesity hypoventilation Venous Doppler: No DVT -VQ scan to rule out PE, spoke with nephrology recommends VQ scan -supplemental oxygen (4) Interstitial lung disease: - incentive spirometry (5) End-stage renal disease (ESRD): On HD on MWF. Had dialysis yesterday -continue renal medications -nephrology consult (6) Anemia, chronic renal failure: Hgb: 9.4. Stable -monitor H&H -Receives Procrit (7) CAD (coronary artery disease): Hx heart cath and received 1 stent to LAD Denies CP, SOB -continue aspirin, plavix, statin, carvedilol with holding parameters (8) Diabetes mellitus, type 2: Insulin dependent -Novolog lantus sliding scale (9) Diastolic CHF: Echo 05/05/18: EF: 65-70%, grade I diastolic dysfunction -montior I&O's (10) Hypertension: Current hypotension -continue carvedilol with holding parameters (11) Hyperlipidemia: -continue statin (12) History of CVA (cerebrovascular accident): -Hx of right sided thalamic, basal ganglia, posterior parietal and occipital infarct -continue ASA, statin, plavix (13) KUSHAL (obstructive sleep apnea): -CPAP HS DVT Prophylaxis -heparin SQ Full Code as per discussion with pt Follows with Dr Yanet Golden for routine care Pt was seen with Dr Hall. See addendum History of Present Illness Chief Complaint: weakness Primary Care Provider: Yanet Golden MD Pt is 67 y/o F with PMH ESRD on HD on MWF, CAD, DM II, diastolic CHF, HTN, h/o CVA, chronic anemia, interstitial lung disease, KUSHAL, GERD, RA presented to ER with complaint of weakness. Patient with recent hospitalization 05/04/18-05/08/18 for generalized weakness, ambulatory dysfunction and was discharged to [facility]. Patient states while at [facility] was using a walker for approximately 50 feet and using wheelchair for longer distances. She was discharged home today. Patient states got out of car and walked to her steps when her legs became very weak and patient states she slid herself to the ground. EMS arrived and it is reported that patient was hypoxic in the 80s and BP 83/28. Patient was given 500 mL NSS. It is reported her blood sugar at that time was 253. Patient states had breakfast, did not eat lunch. She reports had dialysis yesterday. Patient states after dialysis she always feels weak and tired. She denies any cough or diarrhea. Does not use oxygen at home. Patient states has very little urination and states she urinated today and denies any dysuria. Denies fever/chills, diaphoresis, N/V/D/C, CARO, dizziness, syncope, vision changes, neck pain, CP, SOB, orthopnea, palpitations, cough, sore throat, choking, otalgia, rhinorrhea, abdominal pain, paresthesias, increased extremity edema, rashes. Allergies Allergy/AdvReac Type Severity Reaction Status Date / Time codeine Allergy Intermediate hives Verified 05/27/18 13:00 pioglitazone Allergy Intermediate Rash/Fluid Unverified 05/27/18 13:00 retention morphine Allergy Mild HIVES Verified 05/27/18 13:00 Home Medications Home Medications Medication Instructions Recorded Confirmed Type Novolin N NPH U-100 Insulin 22 unit SUBCUT PM 10/29/17 05/27/18 History Novolin N NPH U-100 Insulin 26 unit SUBCUT QAM 10/29/17 05/27/18 History aspirin 81 mg PO DAILY 10/29/17 05/27/18 History atorvastatin 40 mg PO DAILY 10/29/17 05/27/18 History cholecalciferol (vitamin D3) 5,000 unit PO DAILY 10/29/17 05/27/18 History [Vitamin D3] clopidogrel [Plavix] 75 mg PO DAILY 10/29/17 05/27/18 History gabapentin 300 mg PO DAILY 10/29/17 05/27/18 History magnesium oxide 400 mg PO DAILY 10/29/17 05/27/18 History meclizine 25 mg PO TID PRN 10/29/17 05/27/18 History nitroglycerin [Nitrostat] 0.4 mg SUBLINGUAL UD PRN 10/29/17 05/27/18 History ranitidine HCl 150 mg PO DAILY 10/29/17 05/27/18 History acetaminophen [Tylenol] 650 mg PO QID PRN 05/04/18 05/27/18 History sevelamer carbonate [Renvela] 2,400 mg PO TID 05/04/18 05/27/18 History B complex with C#20-folic acid 1 cap PO DAILY 05/27/18 05/27/18 History [Nephrocaps] carvedilol 6.25 mg PO BID 05/27/18 05/27/18 History darbepoetin nichelle in polysorbat 100 mcg SUBCUT WK 05/27/18 05/27/18 History [Aranesp (in polysorbate)] docusate sodium 100 mg PO BID 05/27/18 05/27/18 History Past Med/Surg History Medical History Anemia, chronic renal failure Secondary hyperparathyroidism (of renal origin) CAD (coronary artery disease) (Chronic) LAD x 1 11/2016 Diabetic peripheral neuropathy (Chronic) Diabetes mellitus with neuropathy (Chronic) AV fistula (Chronic) ESRD (end stage renal disease) on dialysis (Chronic) Hyperlipidemia (Chronic) Hypertension (Chronic) Interstitial lung disease (Chronic) Depression (Chronic) Anxiety (Chronic) KUSHAL (obstructive sleep apnea) (Chronic) "CPAP HS" GERD (gastroesophageal reflux disease) (Chronic) Diastolic CHF (Chronic) Hx of migraines (Chronic) Chronic anemia (Chronic) Diabetes mellitus, type 2 (Chronic) CKD (chronic kidney disease), stage IV (Chronic) Callus (Acute) Hallux abducto valgus, bilateral (Acute) Surgical History History of coronary artery stent placement (Chronic) History of (Chronic) History of cholecystectomy (Chronic) Status post laser trabeculoplasty of eye (Chronic) History of bilateral cataract extraction (Chronic) Hx of total knee replacement (Chronic) Hx of shoulder surgery (Chronic) Family History Father Stomach cancer Other Coronary heart disease Diabetes Hypertension Social History Preferred Language: Mongolian Communication Ability: Effective Access Representative Required: No Beliefs That Will Affect Care: None marital status: Current Living Situation: Spouse Feels Safe at Home: Yes Safety Concerns: Feels Safe At This Time Smoking Status: Never smoker Second Hand Exposure: No Hx Alcohol Use: No Hx Substance Use: No Results & Data Vital Signs (Past 12 Hours) Vital Signs Temp Pulse Pulse Resp BP BP BP 05/27/18 16:43 36.6 C 68 76 18 98/64 L 05/27/18 16:24 71 20 95/46 L 05/27/18 15:18 73 15 105/48 L 05/27/18 14:32 105/48 L 05/27/18 14:31 75 18 105/48 L 05/27/18 14:09 73 18 87/41 L 05/27/18 12:57 37.5 C 76 71 18 98/45 L Pulse Ox 05/27/18 16:43 100 05/27/18 16:24 100 05/27/18 15:18 100 05/27/18 14:32 98 05/27/18 14:31 82 L 05/27/18 14:09 94 04/18/19 12:57 98 Supervising Physician Co-Signing Physician Notes Patient is a 67-year-old female with history of end-stage renal disease on hemodialysis, diastolic CHF and interstitial lung disease, obstructive sleep apnea and other problems presents with history of weakness and was found to be hypoxic. Patient was discharged home from [facility] today and when g etting out of the car she felt weak in her legs and slid herself to the ground. Denies any history of head trauma, loss of consciousness, dizziness. Patient was brought to ED for further evaluation and was found to be hypoxic in the 80s on room air. Patient received IV fluids in ED. Patient has history of recurrent UTIs in the past but currently denies any history of dysuria, fever chills, increased urinary frequency, hematuria. She was found to be hypotensive and systolic blood pressure in the 80s. SBP Impaired 100s after IV fluids. She denied any chest pain, shortness of breath, cough. Chest x-ray showed no acute findings. Her ABG not suggestive of respiratory decompensation. Venous Doppler showed no DVT. VQ scan pending. Patient saturations improved with supplemental oxygen. Her UA suggestive of possible UTI. Empirically start on IV antibiotics. She is due for her regular hemodialysis tomorrow. Patient will need 2 step prior to discharge. PT/OT consulted. Physical Exam: Vitals signs as noted above General Appearance:Obese, no apparent distress Head: normocephalic, Atraumatic Eyes: normal inspection, EOMI Neck: supple, Trachea midline Respiratory/Chest: Normal breath sounds, + Basal Crackles, No accessory muscle use Cardiovascular: S1, S2, No murmur Abdomen/GI:Soft, Non tender, Bowel sounds present Extremities/Musculoskelatal:normal inspection, Trace edema, + HD Fistula Neurologic/Psych:AAOX3, grossly no focal neurological deficits Skin: normal color, warm I personally reviewed the record. Patient is interviewed and examined at bedside. Patient's care is coordinated with Shira Stokes PA-C. Please refer to the documentation above for details of patient's presentation and for discussion of other issues. (1) Diastolic CHF Heart failure chronicity: chronic Qualified Code(s): I50.32 - Chronic diastolic (congestive) heart failure (2) Anemia, chronic renal failure Chronic kidney disease stage: stage 5 Qualified Code(s): N18.5 - Chronic kidney disease, stage 5; D63.1 - Anemia in chronic kidney disease (3) Diabetes mellitus, type 2 Chronic kidney disease stage: on chronic dialysis Diabetes mellitus complication detail: with chronic kidney disease Diabetes mellitus complication status: with kidney complications Diabetes mellitus nursing home insulin use: with nursing home use Qualified Code(s): E11.22 - Type 2 diabetes mellitus with diabetic chronic kidney disease; N18.6 - End stage renal disease; Z79.4 - Long t erm (current) use of insulin; Z99.2 - Dependence on renal dialysis (4) CAD (coronary artery disease) Associated angina: without angina Coronary Disease-Associated Artery/Lesion type: [place] artery [place] vs. transplanted heart: [place] heart Qualified Code(s): I25.10 - Atherosclerotic heart disease of [place] coronary artery without angina pectoris (5) Hyperlipidemia Hyperlipidemia type: unspecified Qualified Code(s): E78.5 - Hyperlipidemia, unspecified (6) Hypertension Hypertension type: essential hypertension Qualified Code(s): I10 - Essential (primary) hypertension (7) Hypotension Hypotension type: unspecified hypotension type Qualified Code(s): I95.9 - Hypotension, unspecified
--- NOTE | 2018-05-27 20:50 | Nuclear Medicine Report ---
NM pul vent and perfuse CLINICAL HISTORY: Hypoxia, possible pulmonary embolism. COMPARISON STUDY: Chest x-ray dated 05/27/2018 FINDINGS: The patient was ventilated utilizing 30 mCi of technetium 99m DTPA aerosol. The patient was perfused utilizing 5 mCi of technetium 99 MAA. There is mild central deposition of the tracer on the ventilatory study suggesting mild airway diseas e. There are no significant VQ mismatches. This study is of low probability of acute pulmonary emboli sm. IMPRESSION: Low probability for acute pulmonary embolism. Electronically signed by: Zack Estrada M.D. 05/27/2018 8:48 PM
[2018-05-27] MEDS: CARVEDILOL 6.25 MG TAB PO SCH (20:55)
[2018-05-27] MEDS: INSULIN GLARGINE SOLOSTAR 100 UNITS/ML 3 ML PEN SC SCH (20:55)
[2018-05-27] MEDS: DOCUSATE SODIUM 100 MG CAP PO SCH (20:59)
[2018-05-28] MEDS: PIPERACILLIN/TAZOBACTAM 3.375 GM in DEXTROSE 5% 100 ML IV SCH ×2 (02:03→13:57)
[2018-05-28 07:08] LABS: Basophils # (auto) 0.01 K/uL (0-0.2); Basophils % (auto) 0.1 %; Eosinophils # (auto) 0.19 K/uL (0-0.5); Eosinophils % (auto) 2.8 %; Hemoglobin 8.8 g/dL (12.0-16.0); Immature Granulocytes # (auto) 0.07 K/uL (0.00-0.02); Lymphocytes # (auto) 1.53 K/uL (1.2-3.4); Lymphocytes % (auto) 22.7 %; Mean Corpuscular Hgb Conc 31.4 g/dL (32-36); Mean Corpuscular Volume 101.1 fL (80-100); Mean Platelet Volume 9.5 fL (7.4-10.4); Monocytes # (auto) 0.76 K/uL (0.11-0.59); Monocytes % (auto) 11.3 %; Neutrophils # (auto) 4.18 K/uL (1.4-6.5); Neutrophils % (auto) 62.1 %; Platelet Count 188 K/uL (130-400); RDW Coefficient of Variation 20.9 % (11.5-14.5); Red Blood Count 2.77 M/uL (4.2-5.4); White Blood Count 6.74 K/uL (4.8-10.8)
[2018-05-28 07:30] LABS: Anisocytosis Present; Polychromasia 1+
[2018-05-28] MEDS ORDERED: SODIUM CHLORIDE 0.9% 1000ML 1,000 ML IV PRN (07:45)
[2018-05-28] MEDS ORDERED: HEPARIN SOD (PORCINE) 1000 UNIT/ML 10 ML VIAL IV ONE (07:45)
[2018-05-28] MEDS ORDERED: EPOETIN ALFA 10,000 UNITS/ML VIAL IV ONE (07:48)
[2018-05-28 07:51] LABS: BUN Creatinine Ratio 4.6 (10-20); Calcium 9.1 mg/dl (8.5-10.1); Creatinine Clr Calc Pharmacy 5.9 ml/min; Est GFR (African American) 4.8; Est GFR (Non-African American) 4.1
[2018-05-28] MEDS: INSULIN ASPART 100 UNITS/ML 3 ML PEN SC SCH ×2 (08:09→14:26)
[2018-05-28] MEDS: CARVEDILOL 6.25 MG TAB PO SCH ×2 (08:10→13:56)
[2018-05-28] MEDS: DOCUSATE SODIUM 100 MG CAP PO SCH (08:10)
[2018-05-28] MEDS: SEVELAMER HCL 800 MG TABLET PO SCH ×2 (08:10→14:01)
[2018-05-28] MEDS: INSULIN GLARGINE SOLOSTAR 100 UNITS/ML 3 ML PEN SC SCH (08:11)
[2018-05-28] MEDS ORDERED: PNEUMOCOCCAL ADMINISTRATION CHARGE ONE (09:00)
[2018-05-28] MEDS ORDERED: ASPIRIN 81 MG ECTAB PO SCH (09:00)
[2018-05-28] MEDS ORDERED: ATORVASTATIN 40 MG TAB PO SCH (09:00)
[2018-05-28] MEDS ORDERED: MAGNESIUM OXIDE 400 MG TAB PO SCH (09:00)
[2018-05-28] MEDS ORDERED: NEPHROCAPS PO SCH (09:00)
[2018-05-28] MEDS ORDERED: CLOPIDOGREL BISULFATE 75 MG TAB PO SCH (09:00)
[2018-05-28] MEDS ORDERED: PNEUMOCOCCAL POLYSACCHARIDES 25 MCG/0.5 ML VIAL/SYR IM ONE (09:00)
[2018-05-28] MEDS ORDERED: CHOLECALCIFEROL 1,000 UNITS TAB PO SCH (09:00)
[2018-05-28] MEDS ORDERED: GABAPENTIN 300 MG CAP PO SCH (09:00)
[2018-05-28] MEDS: HEPARIN SOD (PORCINE) 1000 UNIT/ML 10 ML VIAL IV SCH ×3 (10:20→12:31)
--- NOTE | 2018-05-28 10:28 | Nephrology Progress Note ---
Date of Service May 28, 2018 Assessment & Plan (1) End-stage renal disease (ESRD): ESRD patient on dialysis Thursday who was admitted after mechanical fall. She was seen and examined on dialysis this morning. She is tolerating dialysis well. She has chronic hypertension. We will dialyze her for 4 hours, blood flow 350, dialysate flow 600, target UF of 2 L on a 3K bath. -continue binders when taking po -ensure renal vitamin (2) Hypotension: ensure hold parameters on coreg; hgb stable; no leukocytosis on cbc; on zosyn for ? uti - pt is oligoanuric. not likely bacteremia related to dialysis access > uses avf -We will give Midrin 10 mg p.o. with dialysis. (3) Anemia, chronic renal failure: We will give Neupogen 10,000 units IV with dialysis today. Subjective ESRD patient admitted after mechanical fall. She was seen and examined while on dialysis this morning. She denied any shortness of breath. She is complaining of pain on her bruised knees. No lower extremity swelling. No vomiting or diarrhea. No dizziness. Review of Systems Review of Systems: All systems reviewed & are unremarkable except as noted in HPI & below Physical Exam Physical Exam: General exam: Appears comfortable, no acute distress HEENT: Pupils are equal and reactive to light Neck: No JVD, neck is supple trachea is midline Respiratory system: Clear breath sounds bilaterally. Gastrointestinal: Abdomen is soft, non distended, non tender, bowel sounds are present CVS: Regular rate and rhythm. No murmurs, rubs or gallops Musculoskeletal: No joint or muscle tenderness Extremities: Non tender, no edema, peripheral pulses are present Neuro: Oriented, no tremors, no focal neurological deficits Skin: No rashes, bruises on the right knee Access: Left upper arm AV fistula with good bruit Results & Data Vital Signs (Past 12 Hours) Vital Signs Temp Pulse Pulse Resp BP Pulse Ox 05/28/18 07:46 36.2 C L 72 18 100/54 L 96 05/28/18 03:20 36.7 C 67 17 116/73 97 05/28/18 00:16 37.4 C 69 20 108/69 98 05/27/18 22:45 66 Laboratory Results Hemoglobin 8.8, potassium 4, creatinine 8.8, sodium 138 (1) Hypotension Hypotension type: unspecified hypotension type Qualified Code(s): I95.9 - Hypotension, unspecified (2) Anemia, chronic renal failure Chronic kidney disease stage: stage 5 Qualified Code(s): N18.5 - Chronic kidney disease, stage 5; D63.1 - Anemia in chronic kidney disease
[2018-05-28] MEDS ORDERED: MIDODRINE HCL 10 MG TAB PO ONE (10:45)
--- NOTE | 2018-05-28 13:52 | Hospitalist Progress Note ---
Date of Service May 28, 2018 Assessment & Plan (1) Hypotension: (2) Generalized weakness: From admitting physician: Patient with recent hospitalization 05/04/18-05/08/18 for generalized weakness, ambulatory dysfunction and was discharged to [facility]. Patient states while at [facility] was using a walker for approximately 50 feet and using wheelchair for longer distances. She was discharged home today. Patient states got out of car and walked to her steps when her legs became very weak and patient states she slid herself to the ground. EMS arrived and it is reported that patient was hypoxic in the 80s and BP 83/28. Patient was given 500 mL NSS. It is reported her blood sugar at that time was 253. In ER and is reported patient is very weak. She was given an additional 250 mL NSS. Patient afebrile, P: 76, R: 18, BP 98/45, 92% on room air had noted to drop to 82% on room air up to 100% on 2 L nasal cannula. WBC: 8, glucose: 202. CXR: No acute changes. UA: No nitrates, 3+ leuk, >30 WBD, epithel 5-10, negative bacteria 05/28: No urinary symptoms But restarted 1 empiric antibiotic with a history of E. coli ESBL in the past Denies any symptoms Clinically stable PT/OT evaluation (3) Hypoxia: Noted on patient's chart with history of interstitial lung disease. Patient is not on any medications or home oxygen. Denies any chest pain, shortness of breath, wheezing, cough, fever or chills VQ scan to rule out PE, spoke with nephrology recommends VQ scan-low probability for pulmonary embolism Supplemental oxygen Will need echo oxygen and to do steps saturation test before discharge (4) Interstitial lung disease: - incentive spirometry -As above (5) End-stage renal disease (ESRD): On HD on MWF. Had dialysis yesterday -continue renal medications -nephrology consult-appreciate input and recommendation (6) Anemia, chronic renal failure: Anemia of chronic disease Hgb: 9.4. Stable -monitor H&H -Receives Procrit (7) CAD (coronary artery disease): Hx heart cath and received 1 stent to LAD Denies CP, SOB Continue aspirin, plavix, statin, carvedilol with holding parameters (8) Diabetes mellitus, type 2: Insulin dependent -Novolog lantus sliding scale (9) Diastolic CHF: Echo 05/05/18: EF: 65-70%, grade I diastolic dysfunction -montior I&O's -No acute symptoms at this time (10) Hypertension: Current hypotension -continue carvedilol with holding parameters (11) Hyperlipidemia: -continue statin (12) History of CVA (cerebrovascular accident): -Hx of right sided thalamic, basal ganglia, posterior parietal and occipital infarct -continue ASA, statin, plavix -No acute symptoms (13) KUSHAL (obstructive sleep apnea): -CPAP HS DVT Prophylaxis -heparin SQ Full Code as per discussion with pt Follows with Dr Yanet Golden for routine care She was in [facility] and was discharged home yesterday She wants to go home and she will need PT OT evaluation which have been ordered She will need oxygen likely continuous and on ambulation 2 steps saturation test should be done before discharge Subjective 05/28 The patient was seen and examined in the telemetry unit Pt is 67 y/o F with PMH ESRD on HD on MWF, CAD, DM II, diastolic CHF, HTN, h/o CVA, chronic anemia, interstitial lung disease, KUSHAL, GERD, RA presented to ER with complaint of weakness. Patient with recent hospitalization 05/04/18-05/08/18 for generalized weakness, ambulatory dysfunction and was discharged to [facility], she was discharged home on the day of admission to [facility]. She could not get into the house due to weakness and fall(slide down) Noted to be hypoxic and hypotensive at Denies any symptoms of that today Also noted to have a transient runs of atrial tachycardia while at physical therapy today Review of Systems Review of Systems: All systems reviewed and are unremarkable except as noted below Respiratory: + dyspnea and + dyspnea on exertion Neurologic: Alert and awake. Generalized weakness Physical Exam Physical Exam: Sitting on a chair without any significant shortness of breath Constitutional: well developed, well nourished and + obese Eyes: EOM intact bilaterally ENMT: Ears: no external ear abnormality Nose: no external nose abnormality Mouth: + dry oral mucous membranes Neck: no nuchal rigidity Respiratory: + respiratory distress (Minimal respiratory distress at rest) Auscultation: + diminished lung sounds, + crackles (Fine bibasilar crackles) and + wheezes (Minimal wheezing) Cardiovascular: RRR, no murmur, no edema Extremities: + AV fistula (+ t/b LUE) Gastrointestinal (Abdomen): Inspection/Auscultation: normal bowel sounds Percussion/Palpation: abdomen soft; abdomen nontender Musculoskeletal: Extremities: strength 5/5 throughout Skin: no rashes, warm and dry Trauma: + abrasion (R knee) Psychiatric: Orientation: alert and oriented x 3 Speech: normal rate/rhythm/volume of speech Affect: + depressed affect Results & Data Vital Signs (Past 12 Hours) Vital Signs Temp Pulse Pulse Pulse Resp BP BP 05/28/18 12:20 70 109/53 L 05/28/18 12:00 72 114/56 L 05/28/18 11:40 72 99/47 L 05/28/18 11:20 73 103/49 L 05/28/18 11:00 78 92/53 L 05/28/18 10:40 76 108/50 L 05/28/18 10:20 78 96/46 L 05/28/18 10:00 81 101/52 L 05/28/18 09:40 81 102/48 L 05/28/18 09:20 37.2 C 82 83 117/53 L 05/28/18 07:46 36.2 C L 72 18 100/54 L 05/28/18 03:20 36.7 C 67 17 116/73 Pulse Ox 05/28/18 12:20 05/28/18 12:00 05/28/18 11:40 05/28/18 11:20 05/28/18 11:00 05/28/18 10:40 05/28/18 10:20 05/28/18 10:00 05/28/18 09:40 05/28/18 09:20 05/28/18 07:46 96 05/28/18 03:20 97 Laboratory Results Short CBC 05/28/18 Range/Units 06:37 WBC 6.74 (4.8-10.8) K/uL Hgb 8.8 L (12.0-16.0) g/dL Hct 28.0 L (37-47) % Plt Count 188 (130-400) K/uL BMP 05/28/18 06:37 Sodium 138 Potassium 4.0 Chloride 100 Carbon Dioxide 29 BUN 41 H Creatinine 8.87 H* D Glucose 142 H Calcium 9.1 Medications Administered Current Inpatient Medications Acetaminophen (Tylenol) 650 mg PO Q4H PRN PRN Reason: Pain or Fever Stop: 06/26/18 16:55 Aspirin (Ecotrin Ectab) 81 mg PO DAILY [facility] Stop: 06/27/18 08:59 Last Admin: 05/28/18 08:10 Dose: 81 mg Documented by: Atorvastatin Calcium (Lipitor) 40 mg PO DAILY [facility] Stop: 06/27/18 08:59 Last Admin: 05/28/18 08:11 Dose: 40 mg Documented by: Carvedilol (Coreg) 6.25 mg PO BID [facility] Stop: 06/26/18 20:59 Last Admin: 05/27/18 20:55 Dose: 6.25 mg Documented by: Clopidogrel Bisulfate (Plavix) 75 mg PO DAILY [facility] Stop: 06/27/18 08:59 Last Admin: 05/28/18 08:12 Dose: 75 mg Documented by: Dextrose (Dextrose 50%) 25 - 50 ml IV UD PRN; Protocol PRN Reason: Hypoglycemia Protocol Stop: 06/26/18 16:55 Docusate Sodium (Colace) 100 mg PO BID [facility] Stop: 06/26/18 20:59 Last Admin: 05/28/18 08:10 Dose: 100 mg Documented by: Gabapentin (Neurontin) 300 mg PO DAILY [facility] Stop: 06/27/18 08:59 Last Admin: 05/28/18 08:12 Dose: 300 mg Documented by: Glucagon (Glucagen) 1 mg SQ UD PRN; Protocol PRN Reason: Hypoglycemia Protocol Stop: 06/26/18 16:55 Glucose (Glucose 40%) 15 - 30 gm PO UD PRN; Protocol PRN Reason: Hypoglycemia Protocol Stop: 06/26/18 16:55 Glucose (Dex4 Glucose) 4 - 8 tabs PO UD PRN; Protocol PRN Reason: Hypoglycemia Protocol Stop: 06/26/18 16:55 Piperacillin Sod/Tazobactam (Sod 3.375 gm/ Dextrose) 115 mls @ 28.75 mls/hr IV Q12H [facility]; Protocol Stop: 06/02/18 01:59 Last Infusion: 05/28/18 05:52 Dose: Infused Documented by: Sodium Chloride (Nss 1000ml) 1,000 mls @ 0 mls/hr IV .Q0M PRN PRN Reason: For Hemodialysis Use ONLY Stop: 05/28/18 13:44 Insulin Aspart (Novolog Flexpen) 0 units SC ACHS [facility] Stop: 06/26/18 16:55 Last Admin: 05/28/18 08:09 Dose: 5 units Documented by: Insulin Glargine (Lantus Solostar Pen) 0 units SC BID [facility]; Protocol Stop: 06/26/18 20:59 Last Admin: 05/28/18 08:11 Dose: 7 units Documented by: Magnesium Oxide (Mag-Ox) 400 mg PO DAILY [facility] Stop: 06/27/18 08:59 Last Admin: 05/28/18 08:12 Dose: 400 mg Documented by: Miscellaneous (Carbohydrates For Hypoglycemia) 15 - 30 gm PO UD PRN PRN Reason: Hypoglycemia Treatment Stop: 06/26/18 16:55 Miscellaneous Information (Consult) 1 ea N/A UD PRN PRN Reason: Consult Stop: 06/26/18 17:04 Nitroglycerin (Nitrostat) 0.4 mg SL UD PRN PRN Reason: Chest Pain Stop: 06/26/18 16:55 Ranitidine HCl (Zantac) 150 mg PO DAILY [facility] Stop: 06/27/18 08:59 Last Admin: 05/28/18 08:13 Dose: 150 mg Documented by: Sevelamer HCl (Renagel) 2,400 mg PO TIDM [facility] Stop: 06/26/18 17:59 Last Admin: 05/28/18 08:10 Dose: 2,400 mg Documented by: Vitamin B Complex/Folic Acid (Nephrocaps) 1 cap PO DAILY [facility] Stop: 06/27/18 08:59 Last Admin: 05/28/18 08:12 Dose: 1 cap Documented by: Vitamin D (Vitamin D3) 5,000 units PO DAILY [facility] Stop: 06/27/18 08:59 Last Admin: 05/28/18 08:13 Dose: 5,000 units Documented by: (1) Hypotension Hypotension type: unspecified hypotension type Qualified Code(s): I95.9 - Hypotension, unspecified (2) Anemia, chronic renal failure Chronic kidney disease stage: stage 5 Qualified Code(s): N18.5 - Chronic kidney disease, stage 5; D63.1 - Anemia in chronic kidney disease (3) CAD (coronary artery disease) Coronary Disease-Associated Artery/Lesion type: [place] artery [place] vs. transplanted heart: [place] heart Associated angina: without angina Qualified Code(s): I25.10 - Atherosclerotic heart disease of [place] coronary artery without angina pectoris (4) Diabetes mellitus, type 2 Diabetes mellitus chcf insulin use: with chcf use Diabetes mellitus complication status: with kidney complications Diabetes mellitus complication detail: with chronic kidney disease Chronic kidney disease stage: on chronic dialysis Qualified Code(s): E11.22 - Type 2 diabetes mellitus with diabetic chronic kidney disease; N18.6 - End stage renal disease; Z79.4 - senior care (current) use of insulin; Z99.2 - Dependence on renal dialysis (5) Diastolic CHF Heart failure chronicity: chronic Qualified Code(s): I50.32 - Chronic diastolic (congestive) heart failure (6) Hypertension Hypertension type: essential hypertension Qualified Code(s): I10 - Essential (primary) hypertension (7) Hyperlipidemia Hyperlipidemia type: unspecified Qualified Code(s): E78.5 - Hyperlipidemia, unspecified
--- NOTE | 2018-05-28 18:39 | Discharge Summary ---
Date of Service May 28, 2018 Admission HPI Per Admitting Provider Pt is 67 y/o F with PMH ESRD on HD on MWF, CAD, DM II, diastolic CHF, HTN, h/o CVA, chronic anemia, interstitial lung disease, KUSHAL, GERD, RA presented to ER with complaint of weakness. Patient with recent hospitalization 05/04/18-05/08/18 for generalized weakness, ambulatory dysfunction and was discharged to [facility]. Patient states while at [facility] was using a walker for approximately 50 feet and using wheelchair for longer distances. She was discharged home today. Patient states got out of car and walked to her steps when her legs became very weak and patient states she slid herself to the kel[place] und. EMS arrived and it is reported that patient was hypoxic in the 80s and BP 83/28. Patient was given 500 mL NSS. It is reported her blood sugar at that time was 253. Patient states had breakfast, did not eat lunch. She reports had dialysis yesterday. Patient states after dialysis she always feels weak and tired. She denies any cough or diarrhea. Does not use oxygen at home. Patient states has very little urination and states she urinated today and denies any dysuria. Denies fever/chills, diaphoresis, N/V/D/C, CARO, dizziness, syncope, vision changes, neck pain, CP, SOB, orthopnea, palpitations, cough, sore throat, choking, otalgia, rhinorrhea, abdominal pain, paresthesias, increased extremity edema, rashes. Principal Diagnosis Generalized weakness, hypotension-improved, interstitial lung disease, end-stage renal disease on hemodialysis, diabetes type 2, stable CAD Discharge Exam Constitutional well developed, well nourished and + obese Eyes EOM intact bilaterally ENMT Ears: no external ear abnormality Nose: no external nose abnormality Mouth: + dry oral mucous membranes Neck no nuchal rigidity Respiratory + respiratory distress (Minimal respiratory distress at rest) Auscultation: + diminished lung sounds, + crackles (Fine bibasilar crackles) and + wheezes (Minimal wheezing) Cardiovascular RRR, no murmur, no edema Extremities: + AV fistula (+ t/b LUE) Gastrointestinal (Abdomen) Inspection/Auscultation: normal bowel sounds Percussion/Palpation: abdomen soft; abdomen nontender Musculoskeletal Extremities: strength 5/5 throughout Skin no rashes, warm and dry Trauma: + abrasion (R knee) Psychiatric Orientation: alert and oriented x 3 Speech: normal rate/rhythm/volume of speech Affect: + depressed affect Discharge Data Allergies Allergy/AdvReac Type Severity Reaction Status Date / Time codeine Allergy Intermediate hives Verified 05/27/18 13:00 pioglitazone Allergy Intermediate Rash/Fluid Unverified 05/27/18 13:00 retention morphine Allergy Mild HIVES Verified 05/27/18 13:00 Consultations 05/27/18 14:14 ED Decision to Admit Stat 05/27/18 16:56 Consult Case Management - Discharge Planning Routine Consult Nephrology Routine Ordered Studies 05/27/18 12:16 US venous doppler [facility] Stat Hospital Course (1) Hypotension: (2) Generalized weakness: From admitting physician: Patient with recent hospitalization 05/04/18-05/08/18 for generalized weakness, ambulatory dysfunction and was discharged to [facility]. Patient states while at [facility] was using a walker for approximately 50 feet and using wheelchair for longer distances. She was discharged home today. Patient states got out of car and walked to her steps when her legs became very weak and patient states she slid herself to the ground. EMS arrived and it is reported that patient was hypoxic in the 80s and BP 83/28. Patient was given 500 mL NSS. It is reported her blood sugar at that time was 253. In ER and is reported patient is very weak. She was given an additional 250 mL NSS. Patient afebrile, P: 76, R: 18, BP 98/45, 92% on room air had noted to drop to 82% on room air up to 100% on 2 L nasal cannula. WBC: 8, glucose: 202. CXR: No acute changes. UA: No nitrates, 3+ leuk, >30 WBD, epithel 5-10, negative bacteria 05/28: No urinary symptoms But restarted 1 empiric antibiotic with a history of E. coli ESBL in the past Denies any symptoms Clinically stable PT/OT evaluation (3) Hypoxia: Noted on patient's chart with history of interstitial lung disease. Patient is not on any medications or home oxygen. Denies any chest pain, shortness of breath, wheezing, cough, fever or chills VQ scan to rule out PE, spoke with nephrology recommends VQ scan-low probability for pulmonary embolism Supplemental oxygen Will need echo oxygen and to do steps saturation test before discharge (4) Interstitial lung disease: - incentive spirometry -As above (5) End-stage renal disease (ESRD): On HD on MWF. Had dialysis yesterday -continue renal medications -nephrology consult-appreciate input and recommendation (6) Anemia, chronic renal failure: Anemia of chronic disease Hgb: 9.4. Stable -monitor H&H -Receives Procrit (7) CAD (coronary artery disease): Hx heart cath and received 1 stent to LAD Denies CP, SOB Continue aspirin, plavix, statin, carvedilol with holding parameters (8) Diabetes mellitus, type 2: Insulin dependent -Novolog lantus sliding scale (9) Diastolic CHF: Echo 05/05/18: EF: 65-70%, grade I diastolic dysfunction -montior I&O's -No acute symptoms at this time (10) Hypertension: Current hypotension -continue carvedilol with holding parameters (11) Hyperlipidemia: -continue statin (12) History of CVA (cerebrovascular accident): -Hx of right sided thalamic, basal ganglia, posterior parietal and occipital infarct -continue ASA, statin, plavix -No acute symptoms (13) KUSHAL (obstructive sleep apnea): -CPAP HS DVT Prophylaxis -heparin SQ Full Code as per discussion with pt Follows with Dr Yanet Golden for routine care She was in [facility] and was discharged home yesterday She wants to go home and she will need PT OT evaluation which have been ordered She will need oxygen likely continuous and on ambulation 2 steps saturation test should be done before discharge Total Time Total Time Spent Total Time Spent (In Minutes): 35 minutes Total Time Includes: Examination of the Patient, Discharge Planning, Medication Reconciliation and Communication With Other Providers Discharge Plan Discharge Items Patient Disposition: Transfer Care Home Fac Reason For Visit: WEAKNESS Discharge Diagnosis: Generalized weakness, hypotension-improved, interstitial lung disease, end-stage renal disease on hemodialysis, diabetes type 2, stable CAD Condition: Fair Discharge Goals: Decrease discomfort and Improve function Activity: Resume your previous activity Non-emergency contact: Primary Care Provider Call non-emergency contact if: you have any medication questions and your symptoms worsen Follow-up/Referrals: Yanet Golden MD [Primary Care Provider] - (Please make an appointment with your primary care provider within 1 week following discharge from the facility) Diet: Dialysis Renal, Heart Healthy and Low Sodium (2gm) Fluids: 1500ml (6 cups) Addtl Provider Instructions: Please take precaution to avoid fall. We will need continuous oxygen. Prescriptions: Continued carvedilol 6.25 mg Tablet 6.25 mg PO BID RF: 0 docusate sodium 100 mg Capsule 100 mg PO BID RF: 0 Nephrocaps 1 mg Capsule 1 cap PO DAILY RF: 0 Aranesp (in polysorbate) 100 mcg/0.5 mL Syringe 100 mcg subcut WK RF: 0 atorvastatin 40 mg Tablet 40 mg PO DAILY RF: 0 magnesium oxide 400 mg (241.3 mg magnesium) Tablet 400 mg PO DAILY RF: 0 clopidogrel [Plavix] 75 mg Tablet 75 mg PO DAILY RF: 0 nitroglycerin [Nitrostat] 0.4 mg Tablet, Sublingual 0.4 mg Sublingual UD PRN (Reason: Chest Pain) RF: 0 cholecalciferol (vitamin D3) [Vitamin D3] 5,000 unit Tablet 5,000 unit PO DAILY RF: 0 Novolin N NPH U-100 Insulin 100 unit/mL Suspension 26 unit SUBCUT QAM RF: 0 Novolin N NPH U-100 Insulin 100 unit/mL Suspension 22 unit SUBCUT PM RF: 0 gabapentin 300 mg Capsule 300 mg PO DAILY RF: 0 ranitidine HCl 150 mg Tablet 150 mg PO DAILY RF: 0 aspirin 81 mg Tablet,Delayed Release (Dr/Ec) 81 mg PO DAILY RF: 0 meclizine 25 mg Tablet 25 mg PO TID PRN (Reason: Vertigo) RF: 0 acetaminophen [Tylenol] 325 mg Capsule 650 mg PO QID PRN (Reason: Pain) RF: 0 sevelamer carbonate [Renvela] 800 mg tablet 2,400 mg PO TID RF: 0 Stand-Alone Forms: [facility] Discharge Orders: Discharge Order (Routine); Ordered 05/28/18 Ordered By: Sinai Collier Skilled Items Patient informed of condition?: Yes DNR: No Discharge Level of Care: Skilled Communicable Disease: No Discharge Prognosis: Stable Admission Data Admit Date/Time: 05/27/18 15:44 Attending Provider: Sinai Collier Admit Provider: Keyur Hall Primary Care Provider: Yanet Golden Other Providers: Lexy Kessler ; Keyur Hall Service: Telemetry Other Interventions: Discharge Summary Assessment (RN) Last Done: 05/28/18 16:34 DC Date/Time DO NOT enter until pt leaves facility: 05/28/18 18:09
== END 2018-05-28 18:09 ==
LOC: ED 12:06 → 2S 12:06

== ENCOUNTER 2018-06-04 14:07 | Observation (INO) ==
[2018-06-04] MEDS ORDERED: LEVALBUTEROL HCL 1.25 MG/3 ML NEB NEB STA (14:16)
[2018-06-04 14:35] LABS: Basophils # (auto) 0.01 K/uL (0-0.2); Basophils % (auto) 0.1 %; Eosinophils # (auto) 0.18 K/uL (0-0.5); Hemoglobin 9.1 g/dL (12.0-16.0); Immature Granulocytes # (auto) 0.04 K/uL (0.00-0.02); Immature Granulocytes % (auto) 0.5 %; Lymphocytes # (auto) 1.16 K/uL (1.2-3.4); Lymphocytes % (auto) 13.1 %; Mean Corpuscular Hgb Conc 32.5 g/dL (32-36); Mean Corpuscular Volume 98.9 fL (80-100); Mean Platelet Volume 9.4 fL (7.4-10.4); Monocytes # (auto) 0.99 K/uL (0.11-0.59); Monocytes % (auto) 11.2 %; Neutrophils # (auto) 6.45 K/uL (1.4-6.5); Neutrophils % (auto) 73.1 %; Platelet Count 176 K/uL (130-400); RDW Coefficient of Variation 21.3 % (11.5-14.5); Red Blood Count 2.83 M/uL (4.2-5.4); White Blood Count 8.83 K/uL (4.8-10.8)
--- NOTE | 2018-06-04 14:40 | XRay Report ---
XR chest 1V portable HISTORY: weakness COMPARISON: Chest 05/27/2018. FINDINGS: No pneumothorax. No pleural effusions. The lungs are clear. No evidence for pulmonary edema . The heart remains mildly enlarged. Mitral and disc calcification seen again noted. There is a right shoulder prosthesis. IMPRESSION: Stable mild cardiomegaly. No acute process within the chest. Electronically signed by: Manny Reza M.D. 06/04/2018 2:39 PM
[2018-06-04 14:48] LABS: Partial Thromboplastin Time 26.2 Seconds (21.0-31.0); Prothrombin Time 10.5 Seconds (9.0-12.0)
[2018-06-04 14:55] LABS: Anisocytosis Present; Polychromasia 1+
[2018-06-04 15:13] LABS: Alanine Aminotransferase 41 U/L (12-78); Albumin Globulin Ratio 0.7 (0.9-2); Albumin Level 2.9 gm/dl (3.4-5.0); Alkaline Phosphatase 91 U/L (45-117); Aspartate Aminotransferase 33 U/L (15-37); BUN Creatinine Ratio 4.7 (10-20); Bilirubin,Total 0.5 mg/dl (0.2-1); Blood Urea Nitrogen 28 mg/dl (7-18); Calcium 8.5 mg/dl (8.5-10.1); Carbon Dioxide 31 mmol/L (21-32); Chloride 98 mmol/L (98-107); Creatine Kinase 120 U/L (26-192); Creatine Kinase MB 1.3 ng/ml (0.5-3.6); Creatinine Clr Calc Pharmacy 9.1 ml/min; Est GFR (African American) 7.8; Est GFR (Non-African American) 6.8; Globulin 3.9 gm/dl (2.5-4.0); Glucose 74 mg/dl (70-99); Potassium 3.4 mmol/L (3.5-5.1); Sodium 137 mmol/L (136-145); Total Protein 6.8 gm/dl (6.4-8.2); Troponin I < 0.015 ng/ml (0-0.045)
--- NOTE | 2018-06-04 16:35 | History & Physical Report ---
Date of Service June 04, 2018 Assessment & Plan (1) Hypotension: Pt presented to ER for reported hypotension and hypoxia during dialysis today. It is reported that patient had 1.5 hours of dialysis when she became hypotensive with SBP in the 70s and hypoxic with O2 at 78% on room air. Rep orted pt was given 800 ml NSS. Patient states feels weak during and after dialysis chronically and denies dizziness, syncope, CP, SOB during dialysis today Upon ER arrival patient afebrile, P: 65, heart: 18, BP 88/38 up to 100/39, 95% on room air. Current BP stable at 100/39 -monitor BP closely -BP holding parameters for carvedilol -plan to give additional IVF if needed (2) Hypoxia: It is reported by EMS that oxygen sat 78% on RA. Upon ER arrival pt 95% on room air. Patient was given Xopenex nebulizer treatment and currently 98% on 1 L oxygen via nasal cannula. Pt with similar episode of hypoxia on 05/27/18 and was admitted to hospital with negative venous dopplers for DVT, VQ scan with low probability. Pt did well and was not discharged home on oxygen. No current CP, SOB. No tachycardia or tachypnea. Pt on 2L oxygen NC upon my initial evaluation in ER wtih sats 98-100% on RA and was decreased to 1L with sats 96-99% on RA -monitor closely -supplemental oxygen as needed (3) Interstitial lung disease: Diagnosis listed on records. Not on inhalers or home oxygen -incentive spirometry (4) ESRD (end stage renal disease) on dialysis: On HD on MWF schedule. Had partial dialysis today -continue renal medications -nephrology consult, will need assistance with HD (5) Anemia, chronic renal failure: Hgb: 9.1. Stable -monitor H&H -receives Procrit (6) CAD (coronary artery disease): H/O cardiac cath and had 1 stent to LAD Denies CP, SOB -continue aspirin, plavix, statin -continue carvedilol with holding parameters (7) Diabetes mellitus, type 2: A1c: 5.8 in 04/2018 -hold home Novolin -Novolog sliding scale per protocol (8) Diastolic CHF: Echo: 05/05/18: EF: 65-70%, grade I diastolic dysfunction Does not appear volume overloaded currently -monitor I's & Os (9) Hypertension: Current hypotension -continue carvedilol with holding parameters (10) Hyperlipidemia: -continue statin (11) History of CVA (cerebrovascular accident): -continue aspirin, statin, plavix (12) KUSHAL (obstructive sleep apnea): -CPAP HS (13) GERD (gastroesophageal reflux disease): -continue H2 adithya DVT Prophylaxis -Heparin SQ Full Code as per discussion with pt Follows with Dr Yanet Golden for routine care Pt was seen with Dr Collier. See addendum History of Present Illness Chief Complaint: Hypotension, Hypoxia Primary Care Provider: Yanet Golden MD Pt is 67 y/o F with PMH ESRD on HD on MWF, CAD, DM II, diastolic CHF, HTN, h/o CVA, chronic anemia, interstitial lung disease, KUSHAL, GERD, RA to ER for reported hypotension and hypoxia during dialysis today. It is reported that patient had 1.5 hours at dialysis when she became hypotensive with SBP in the 70s and hypoxic with O2 at 78% on room air. Patient was given 800 ml NSS. Patient states feels weak during and after dialysis chronically. States today she was also having generalized weakness during dialysis however denies dizziness, syncope, CP, SOB. Patient denies any shortness of breath or chest pain recently or over the past couple of weeks. Patient reports ate breakfast today. She does not use any home oxygen or inhalers. States makes very little urine. Denies fever/chills, diaphoresis, N/V/D/C, CARO, dizziness, syncope, vision changes, neck pain, orthopnea, palpitations, cough, sore throat, choking, otalgia, rhinorrhea, abdominal pain, paresthesias, weakness, extremity weakness, extremity edema, rashes. Patient with recent hospitalization 05/27/2018-05/28/2018 for weakness, fall, hypotension and hypoxia. Had negative venous Dopplers for DVT. VQ scan low probability. Urine culture without growth. Blood cultures without growth. Is discharged back to [facility] for rehab. Patient was admitted to [facility] on 06/03/2018 rehab. Patient with history of hospitalization 05/04/2018-05/08/2018 for generalized ambulatory dysfunction and was discharged to [facility]. Allergies Allergy/AdvReac Type Severity Reaction Status Date / Time codeine Allergy Intermediate hives Verified 06/04/18 14:59 pioglitazone Allergy Intermediate Rash/Fluid Unverified 06/04/18 14:59 retention morphine Allergy Mild HIVES Verified 06/04/18 14:59 Home Medications Home Medications Medication Instructions Recorded Confirmed Type Novolin N NPH U-100 Insulin 22 unit SUBCUT PM 10/29/17 06/04/18 History Novolin N NPH U-100 Insulin 26 unit SUBCUT QAM 10/29/17 06/04/18 History aspirin 81 mg PO DAILY 10/29/17 06/04/18 History atorvastatin 40 mg PO DAILY 10/29/17 06/04/18 History cholecalciferol (vitamin D3) 5,000 unit PO DAILY 10/29/17 06/04/18 History [Vitamin D3] clopidogrel [Plavix] 75 mg PO DAILY 10/29/17 06/04/18 History gabapentin 300 mg PO HS 10/29/17 06/04/18 History magnesium oxide 400 mg PO DAILY 10/29/17 06/04/18 History meclizine 25 mg PO TID PRN 10/29/17 06/04/18 History nitroglycerin [Nitrostat] 0.4 mg SUBLINGUAL UD PRN 10/29/17 06/04/18 History ranitidine HCl 150 mg PO DAILY 10/29/17 06/04/18 History acetaminophen [Tylenol] 650 mg PO QID PRN 05/04/18 06/04/18 History sevelamer carbonate [Renvela] 2,400 mg PO UD 05/04/18 06/04/18 History Aranesp (in polysorbate) 100 mcg SUBCUT WK 05/27/18 06/04/18 History Nephrocaps 1 cap PO DAILY 05/27/18 06/04/18 History carvedilol 6.25 mg PO BID 05/27/18 06/04/18 History docusate sodium 100 mg PO BID 05/27/18 06/04/18 History Past Med/Surg History Medical History Anemia, chronic renal failure (Chronic) Secondary hyperparathyroidism (of renal origin) (Chronic) CAD (coronary artery disease) (Chronic) LAD x 1 11/2016 Diabetic peripheral neuropathy (Chronic) Diabetes mellitus with neuropathy (Chronic) AV fistula (Chronic) ESRD (end stage renal disease) on dialysis (Chronic) Hyperlipidemia (Chronic) Hypertension (Chronic) Interstitial lung disease (Chronic) Depression (Chronic) Anxiety (Chronic) KUSHAL (obstructive sleep apnea) (Chronic) "CPAP HS" GERD (gastroesophageal reflux disease) (Chronic) Diastolic CHF (Chronic) Hx of migraines (Chronic) Chronic anemia (Chronic) Diabetes mellitus, type 2 (Chronic) CKD (chronic kidney disease), stage IV (Chronic) History of CVA (cerebrovascular accident) Hypotension Hypoxia Callus (Acute) Hallux abducto valgus, bilateral (Acute) Surgical History History of coronary artery stent placement (Chronic) History of (Chronic) History of cholecystectomy (Chronic) Status post laser trabeculoplasty of eye (Chronic) History of bilateral cataract extraction (Chronic) Hx of total knee replacement (Chronic) Hx of shoulder surgery (Chronic) Family History Father Stomach cancer Other Coronary heart disease Diabetes Hypertension Social History Preferred Language: Filipino Communication Ability: Effective Beliefs That Will Affect Care: None marital status: Current Living Situation: Spouse Feels Safe at Home: Yes Smoking Status: Never smoker Second Hand Exposure: No Hx Alcohol Use: No Hx Substance Use: No Review of Systems Review of Systems: All systems reviewed & are unremarkable except as noted in HPI & below Physical Exam Physical Exam: General: no acute distress, chronic ill appearing, obese Head: normocephalic, atraumatic Eyes: PERRL, EOM's intact, conjunctiva non-injected, anicteric ENT: normal inspection external ears, nose, mucous membranes moist Neck: supple, trachea midline Lungs: clear, no respiratory distress, no wheezing/rhonchi/rales CV: RRR, no significant pretibial edema Abd: normal BS, soft, non-tender Ext: no cyanosis, no calf tenderness Neuro: A&O x 3, no focal deficits noted, somewhat flat affect Skin: warm, dry Results & Data Vital Signs (Past 12 Hours) Vital Signs Temp Pulse Pulse Resp BP Pulse Ox 06/04/18 16:00 64 14 98 06/04/18 15:31 63 12 100/39 L 99 06/04/18 15:30 63 12 100 06/04/18 15:01 64 23 95/41 L 98 06/04/18 15:00 64 15 98 06/04/18 14:40 62 18 100 06/04/18 14:32 61 20 94 06/04/18 14:31 63 17 97/41 L 84 L 06/04/18 14:30 63 16 80 L 06/04/18 14:16 65 17 06/04/18 14:15 98 06/04/18 14:11 64 13 88/38 L 97 06/04/18 14:10 36.9 C 65 18 88/38 L 95 Laboratory Results Short CBC 06/04/18 Range/Units 14:22 WBC 8.83 (4.8-10.8) K/uL Hgb 9.1 L (12.0-16.0) g/dL Hct 28.0 L (37-47) % Plt Count 176 (130-400) K/uL BMP 06/04/18 14:22 Sodium 137 Potassium 3.4 L Chloride 98 Carbon Dioxide 31 BUN 28 H Creatinine 5.90 H* Glucose 74 Calcium 8.5 Cardiac Enzymes 06/04/18 Range/Units 14:22 Total Creatine Kinase 120 (26-192) U/L CK-MB (CK-2) 1.3 (0.5-3.6) ng/ml Troponin I < 0.015 (0-0.045) ng/ml Liver Function 06/04/18 Range/Units 14:22 Total Bilirubin 0.5 (0.2-1) mg/dl AST 33 (15-37) U/L ALT 41 (12-78) U/L Alkaline Phosphatase 91 (45-117) U/L Albumin 2.9 L (3.4-5.0) gm/dl Diagnostic Findings CXR: IMPRESSION: Stable mild cardiomegaly. No acute process within the chest. ECG Rate (beats per minute): 65 Rhythm: normal sinus Change: no significant change Supervising Physician Co-Signing Physician Notes Attending addendum: The patient was seen and examined the emergency room Pt is 67 y/o F with PMH ESRD on HD on MWF, CAD, DM II, diastolic CHF, HTN, h/o CVA, chronic anemia, interstitial lung disease, KUSHAL, GERD, RA to ER for reported hypotension and hypoxia during dialysis today She complains to have weakness during examination Denies any other symptoms whatsoever Prior saturation has been normal even on room air On examination No apparent distress at rest, pale looking Blood pressure noted to be low at systolic 80s Chest-decreased breath sounds at the bases Heart [id number], Abdomen-benign nontender, mildly present Extremities-negative for any edema 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 Admission labs and imaging studies noted Majority of hypotension during dialysis but no other apparent signs and symptoms on admission except generalized weakness Reviewed assessment plan as outlined above by ANAM Hurt Dr (1) Diastolic CHF Heart failure chronicity: chronic Qualified Code(s): I50.32 - Chronic diastolic (congestive) heart failure (2) Anemia, chronic renal failure Chronic kidney disease stage: stage 5 Qualified Code(s): N18.5 - Chronic kidney disease, stage 5; D63.1 - Anemia in chronic kidney disease (3) Diabetes mellitus, type 2 Chronic kidney disease stage: on chronic dialysis Diabetes mellitus complication detail: with chronic kidney disease Diabetes mellitus complication status: with kidney complications Diabetes mellitus intermediate insulin use: with assistant terminal manager use Qualified Code(s): E11.22 - Type 2 diabetes mellitus with diabetic chronic kidney disease; N18.6 - End stage renal disease; Z79.4 - ad terminal makeup operator (current) use of insulin; Z99.2 - Dependence on renal dialysis (4) CAD (coronary artery disease) Associated angina: without angina Coronary Disease-Associated Artery/Lesion type: [place] artery [place] vs. transplanted heart: [place] heart Qualified Code(s): I25.10 - Atherosclerotic heart disease of [place] coronary artery w ithout angina pectoris (5) Hyperlipidemia Hyperlipidemia type: unspecified Qualified Code(s): E78.5 - Hyperlipidemia, unspecified (6) Hypertension Hypertension type: essential hypertension Qualified Code(s): I10 - Essential (primary) hypertension
[2018-06-04] MEDS ORDERED: CARBOHYDRATES FOR HYPOGLYCEMIA PO PRN (18:11)
[2018-06-04] MEDS ORDERED: DEXTROSE 50% 50 ML SYRINGE IV PRN (18:11)
[2018-06-04] MEDS ORDERED: GLUCAGON FOR INJ 1 MG VIAL SQ PRN (18:11)
[2018-06-04] MEDS ORDERED: GLUCOSE 10 TABS/TUBE PO PRN (18:11)
[2018-06-04] MEDS ORDERED: NITROGLYCERIN SL 0.4 MG/TAB TAB SL PRN (18:11)
[2018-06-04] MEDS ORDERED: GLUCOSE 40% GEL 15 GM TUBE PO PRN (18:11)
[2018-06-04] MEDS ORDERED: ACETAMINOPHEN 325 MG TAB PO PRN (18:11)
[2018-06-04] MEDS ORDERED: SEVELAMER HCL 800 MG TABLET PO PRN (19:10)
[2018-06-04] MEDS: INSULIN ASPART 100 UNITS/ML 3 ML PEN SC SCH ×2 (19:58→22:23)
[2018-06-04] MEDS: DOCUSATE SODIUM 100 MG CAP PO SCH (20:59)
[2018-06-04] MEDS: HEPARIN SOD 5,000 UNIT/0.5 ML VIAL SQ SCH (21:00)
[2018-06-04] MEDS ORDERED: GABAPENTIN 300 MG CAP PO SCH (21:00)
[2018-06-04] MEDS ORDERED: CARVEDILOL 6.25 MG TAB PO SCH (21:00)
[2018-06-05] MEDS: HEPARIN SOD 5,000 UNIT/0.5 ML VIAL SQ SCH (06:09)
[2018-06-05 07:16] LABS: Hematocrit (blood only) 29.8 % (37-47); Hemoglobin 9.7 g/dL (12.0-16.0); Mean Corpuscular Hgb Conc 32.6 g/dL (32-36); Mean Platelet Volume 9.7 fL (7.4-10.4); Platelet Count 172 K/uL (130-400); RDW Coefficient of Variation 21.8 % (11.5-14.5); RDW Standard Deviation 78.3 fL (36.4-46.3); Red Blood Count 2.95 M/uL (4.2-5.4); White Blood Count 6.51 K/uL (4.8-10.8)
[2018-06-05] MEDS ORDERED: SEVELAMER HCL 800 MG TABLET PO SCH (08:00)
[2018-06-05 08:03] LABS: Calcium 8.8 mg/dl (8.5-10.1); Creatinine Clr Calc Pharmacy 6.3 ml/min; Est GFR (African American) 5.2; Est GFR (Non-African American) 4.5; Potassium 3.9 mmol/L (3.5-5.1)
--- NOTE | 2018-06-05 08:23 | Hospitalist Progress Note ---
Date of Service June 05, 2018 Assessment & Plan (1) Hypotension: Pt presented to ER for reported hypotension and hypoxia during dialysis. It is reported that patient had 1.5 hours of dialysis when she became hypotensive with SBP in the 70s and hypoxic with O2 at 78% on room air. Reported pt was given 800 ml NSS. Patient states feels weak during and after dialysis chronically and denies dizziness, syncope, CP, SOB during dialysis. Upon ER arrival patient afebrile, P: 65, heart: 18, BP 88/38 up to 100/39, 95% on room air. Current BP stable 113/68 -Home dose: Coreg 6.25 mg PO BID --> Decreased to daily by nephrology -Monitor BP (2) Hypoxia: TRANSIENT HYPOXIA- RESOLVED It was reported by EMS that oxygen sat 78% on RA. Upon ER arrival pt 95% on room air. Patient was given Xopenex nebulizer treatment and in ED- 98% on 1 L oxygen via nasal cannula. Pt with similar episode of hypoxia on 05/27/18 and was admitted to hospital with negative venous dopplers for DVT, VQ scan with low probability. Pt did well and was not discharged home on oxygen. No current CP, SOB, cough. No tachycardia or tachypnea. CXR- No acute abnormalities. Currently 97% on RA (3) Interstitial lung disease: Diagnosis listed on records. Not on inhalers or home oxygen -incentive spirometry (4) ESRD (end stage renal disease) on dialysis: On HD on MWF schedule. Had partial dialysis yesterday -K 3.9; Creatinine 8.32 -Not fluid overloaded , Euvolemic on exam -continue renal medications -Nephrology consulted- No indication for dialysis. Will go with her schedule MWF- next dialysis on Thursday (5) Anemia, chronic renal failure: Stable with no signs of active GI bleeding -Monitor H & H -receives Procrit (6) CAD (coronary artery disease): H/O cardiac cath and had 1 stent to LAD Denies CP, SOB -continue aspirin, plavix, statin -Coreg decreased to 6.125 mg daily from BID dosing by nephrology due to hypotension during dialysis (7) Diabetes mellitus, type 2: A1c: 5.8 in 04/2018 -hold home Novolin -Novolog sliding scale per protocol (8) Diastolic CHF: Echo: 05/05/18: EF: 65-70%, grade I diastolic dysfunction Euvolemic with no signs of volume overload -On Hemodialysis- MWF scheduled. No indication for urgent dialysis per d/w nephrology -Monitor I's & Os (9) Hypertension: Current hypotension -Coreg decreased to 6.125 mg daily from BID dosing by nephrology due to hypotension during dialysis (10) Hyperlipidemia: -continue statin (11) History of CVA (cerebrovascular accident): -continue aspirin, statin, plavix (12) KUSHAL (obstructive sleep apnea): -CPAP HS (13) GERD (gastroesophageal reflux disease): -continue H2 adithya DVT Prophylaxis -Heparin SQ Full Code as per discussion with pt Disposition Ok to discharge to [facility] from medical point of view CM on board Follows with Dr Yanet Golden for routine care Subjective Patient keeps saying she does not know where she is, however she is awake, alert, oriented x2. Denies any shortness of breath, cough, fever, chills, chest pain, worsening of leg swelling. No nausea, vomiting, headache, localized weakness. Saturation 95% on room air Physical Exam Constitutional: WD/WN, vitals as above + obese Respiratory: normal respiratory effort, lungs clear to auscultation Cardiovascular: Rate/Rhythm: regular rate and regular rhythm Extremities: no pedal edema Gastrointestinal (Abdomen): normal bowel sounds, soft, nontender, no hepatosplenomegaly Neurologic: No focal deficits Results & Data Vital Signs (Past 12 Hours) Vital Signs Temp Pulse Resp BP Pulse Ox 06/05/18 07:24 36.6 C 61 18 113/68 97 06/05/18 04:22 36.3 C L 62 18 102/62 100 06/04/18 22:51 37.0 C 65 18 100/60 100 06/04/18 20:58 67 90/46 L (1) Diastolic CHF Heart failure chronicity: chronic Qualified Code(s): I50.32 - Chronic diastolic (congestive) heart failure (2) Anemia, chronic renal failure Chronic kidney disease stage: stage 5 Qualified Code(s): N18.5 - Chronic kidney disease, stage 5; D63.1 - Anemia in chronic kidney disease (3) Diabetes mellitus, type 2 Chronic kidney disease stage: on chronic dialysis Diabetes mellitus complication detail: with chronic kidney disease Diabetes mellitus complication status: with kidney complications Diabetes mellitus news reel cameraman insulin use: with group home use Qualified Code(s): E11.22 - Type 2 diabetes mellitus with diabetic chronic kidney disease; N18.6 - End stage renal disease; Z79.4 - halfway (current) use of insulin; Z99.2 - Dependence on renal dialysis (4) CAD (coronary artery disease) Associated angina: without angina Coronary Disease-Associated Artery/Lesion type: [place] artery [place] vs. transplanted heart: [place] heart Qualified Code(s): I25.10 - Atherosclerotic heart disease of [place] coronary artery without angina pectoris (5) Hyperlipidemia Hyperlipidemia type: unspecified Qualified Code(s): E78.5 - Hyperlipidemia, unspecified (6) Hypertension Hypertension type: essential hypertension Qualified Code(s): I10 - Essential (primary) hypertension
[2018-06-05] MEDS: DOCUSATE SODIUM 100 MG CAP PO SCH (08:31)
[2018-06-05] MEDS: INSULIN ASPART 100 UNITS/ML 3 ML PEN SC SCH ×2 (08:34→12:32)
[2018-06-05] MEDS ORDERED: ASPIRIN 81 MG ECTAB PO SCH (09:00)
[2018-06-05] MEDS ORDERED: CARVEDILOL 6.25 MG TAB PO SCH (09:00)
[2018-06-05] MEDS ORDERED: MAGNESIUM OXIDE 400 MG TAB PO SCH (09:00)
[2018-06-05] MEDS ORDERED: NEPHROCAPS PO SCH (09:00)
[2018-06-05] MEDS ORDERED: CLOPIDOGREL BISULFATE 75 MG TAB PO SCH (09:00)
[2018-06-05] MEDS ORDERED: CHOLECALCIFEROL 1,000 UNITS TAB PO SCH (09:00)
[2018-06-05] MEDS ORDERED: ATORVASTATIN 40 MG TAB PO SCH (09:00)
--- NOTE | 2018-06-05 09:42 | Nephrology Consultation ---
Date of Consultation June 05, 2018 Assessment & Plan (1) End-stage renal disease (ESRD): Patient with ESRD on dialysis Thursday using a left upper arm AV fistula. She was dialyzed yesterday for 1-1/2 hours. Dialysis was terminated prematurely due to hypotension and hypoxia. Electrolytes look stable today with no signs of volume overload. There is no indication for dialysis. We will hold off on dialysis until Thursday. From renal standpoint patient can be discharged back to [facility]. (2) Hypoxia: Patient with acute hypoxia likely in setting of hypotension. She does not appear volume overloaded. Chest x-ray yesterday was clear with no signs of volume overload. Her oxygenation improved with volume resuscitation. Patient is now on room air this morning. Continue oxygen as needed. (3) Hypotension: Patient with hypotension in setting of dialysis. Patient might require to get weight adjustment as she looks euvolemic now. We will communicate to the outpatient dialysis unit. I have reduced Coreg to 6.25 mg once a day. (4) Anemia, chronic renal failure: Hemoglobin of 9.7 today. She will continue Venofer and Epogen at the out patient dialysis unit. History of Present Illness Reason for Consultation: ESRD complicated by hypotension Requesting Physician: Amira Rawls MD Attending Physician: Estefany Golden History of Present Illness This is a 67-year-old female with a history of diastolic CHF, coronary disease, diabetes, depression and ESRD on dialysis Thursday was admitted yesterday with an episode of hypotension and acute hypoxia while in dialysis. Patient was just discharged from [facility] on 06/03/2018 after long hospital stay for weakness. She went to dialysis yesterday and after 1-1/2 hours she became hypotensive with systolic blood pressure in the 70s. She was also hypoxic saturating in the 70s. In the emergency room blood pressure had improved to 100-1 10 and oxygenation also improved. She had received 800 mL of normal saline in dialysis. She did not get fluids in the emergency room. This morning she feels better denies any shortness of breath no confusion. Her blood pressure is now in the 110 range systolic. No dizziness or lightheadedness. She is pretty sedentary and only walks short distances with a walker. Allergies Allergy/AdvReac Type Severity Reaction Status Date / Time codeine Allergy Intermediate hives Verified 06/04/18 14:59 pioglitazone Allergy Intermediate Rash/Fluid Unverified 06/04/18 14:59 retention morphine Allergy Mild HIVES Verified 06/04/18 14:59 Home Medications Home Medications Medication Instructions Recorded Confirmed Type Novolin N NPH U-100 Insulin 22 unit SUBCUT PM 10/29/17 06/04/18 History Novolin N NPH U-100 Insulin 26 unit SUBCUT QAM 10/29/17 06/04/18 History aspirin 81 mg PO DAILY 10/29/17 06/04/18 History atorvastatin 40 mg PO DAILY 10/29/17 06/04/18 History cholecalciferol (vitamin D3) 5,000 unit PO DAILY 10/29/17 06/04/18 History [Vitamin D3] clopidogrel [Plavix] 75 mg PO DAILY 10/29/17 06/04/18 History gabapentin 300 mg PO HS 10/29/17 06/04/18 History magnesium oxide 400 mg PO DAILY 10/29/17 06/04/18 History meclizine 25 mg PO TID PRN 10/29/17 06/04/18 History nitroglycerin [Nitrostat] 0.4 mg SUBLINGUAL UD PRN 10/29/17 06/04/18 History ranitidine HCl 150 mg PO DAILY 10/29/17 06/04/18 History acetaminophen [Tylenol] 650 mg PO QID PRN 05/04/18 06/04/18 History sevelamer carbonate [Renvela] 2,400 mg PO UD 05/04/18 06/04/18 History Aranesp (in polysorbate) 100 mcg SUBCUT WK 05/27/18 06/04/18 History Nephrocaps 1 cap PO DAILY 05/27/18 06/04/18 History carvedilol 6.25 mg PO BID 05/27/18 06/04/18 History docusate sodium 100 mg PO BID 05/27/18 06/04/18 History Patient History Medical History Anemia, chronic renal failure (Chronic) Secondary hyperparathyroidism (of renal origin) (Chronic) CAD (coronary artery disease) (Chronic) LAD x 1 11/2016 Diabetic peripheral neuropathy (Chronic) Diabetes mellitus with neuropathy (Chronic) AV fistula (Chronic) ESRD (end stage renal disease) on dialysis (Chronic) Hyperlipidemia (Chronic) Hypertension (Chronic) Interstitial lung disease (Chronic) Depression (Chronic) Anxiety (Chronic) KUSHAL (obstructive sleep apnea) (Chronic) "CPAP HS" GERD (gastroesophageal reflux disease) (Chronic) Diastolic CHF (Chronic) Hx of migraines (Chronic) Chronic anemia (Chronic) Diabetes mellitus, type 2 (Chronic) CKD (chronic kidney disease), stage IV (Chronic) History of CVA (cerebrovascular accident) Hypotension Hypoxia Callus (Acute) Hallux abducto valgus, bilateral (Acute) Surgical History History of coronary artery stent placement (Chronic) History of (Chronic) History of cholecystectomy (Chronic) Status post laser trabeculoplasty of eye (Chronic) History of bilateral cataract extraction (Chronic) Hx of total knee replacement (Chronic) Hx of shoulder surgery (Chronic) Family History Father Stomach cancer Other Coronary heart disease Diabetes Hypertension Social History Preferred Language: Italian Communication Ability: Effective Porcelain Finisher Required: No Beliefs That Will Affect Care: None marital status: Current Living Situation: [facility] Current Living Situation Comment: Patient currently resides at [facility], has who lives at their [facility] Other Information That Helps Us Care for You: No Feels Safe at Home: Yes Smoking Status: Never smoker Second Hand Exposure: No Hx Alcohol Use: No Hx Substance Use: No Review of Systems Review of Systems: All systems reviewed & are unremarkable except as noted in HPI & below Physical Exam Physical Exam: General exam: Appears comfortable, no acute distress HEENT: Pupils are equal and reactive to light Neck: No JVD, neck is supple trachea is midline Respiratory system: Clear breath sounds bilaterally. Gastrointestinal: Abdomen is soft, non distended, non tender, bowel sounds are present CVS: Regular rate and rhythm. No murmurs, rubs or gallops Musculoskeletal: No joint or muscle tenderness Extremities: Non tender, no edema, peripheral pulses are present Neuro: Oriented, no tremors, no focal neurological deficits Skin: No rashes Access: left UA AVF Results & Data Vital Signs (Past 12 Hours) Vital Signs Temp Pulse Resp BP Pulse Ox 06/05/18 07:24 36.6 C 61 18 113/68 97 06/05/18 04:22 36.3 C L 62 18 102/62 100 06/04/18 22:51 37.0 C 65 18 100/60 100 Laboratory Results Laboratory Results - last 24 hr 06/04/18 06/04/18 06/04/18 14:22 14:22 14:22 WBC 8.83 RBC 2.83 L Hgb 9.1 L Hct 28.0 L MCV 98.9 MCH 32.2 MCHC 32.5 RDW Std Deviation 75.0 H RDW Coeff of Cori 21.3 H Plt Count 176 MPV 9.4 Immature Gran % (Auto) 0.5 Neut % (Auto) 73.1 Lymph % (Auto) 13.1 Bremer % (Auto) 11.2 Eos % (Auto) 2.0 Baso % (Auto) 0.1 Immature Gran # (Auto) 0.04 H Neut # (Auto) 6.45 Lymph # (Auto) 1.16 L Bremer # (Auto) 0.99 H Eos # (Auto) 0.18 Baso # (Auto) 0.01 Polychromasia 1+ Anisocytosis Present PT 10.5 INR 1.0 APTT 26.2 PTT Ratio 1.0 Sodium 137 Potassium 3.4 L Chloride 98 Carbon Dioxide 31 Anion Gap 8.0 BUN 28 H Creatinine 5.90 H* Est Cr Clr Drug Dosing 9.1 Est GFR ( Amer) 7.8 Est GFR (Non-Af Amer) 6.8 BUN/Creatinine Ratio 4.7 L Glucose 74 POC Glucose Calcium 8.5 Total Bilirubin 0.5 AST 33 ALT 41 Alkaline Phosphatase 91 Total Creatine Kinase 120 CK-MB (CK-2) 1.3 CK/CKMB % Calc 1.1 Troponin I < 0.015 Total Protein 6.8 Albumin 2.9 L Globulin 3.9 Albumin/Globulin Ratio 0.7 L TSH 1.220 06/04/18 06/04/18 06/05/18 18:36 22:22 06:37 WBC 6.51 RBC 2.95 L Hgb 9.7 L Hct 29.8 L MCV 101.0 H MCH 32.9 MCHC 32.6 RDW Std Deviation 78.3 H RDW Coeff of Cori 21.8 H Plt Count 172 MPV 9.7 Immature Gran % (Auto) Neut % (Auto) Lymph % (Auto) Bremer % (Auto) Eos % (Auto) Baso % (Auto) Immature Gran # (Auto) Neut # (Auto) Lymph # (Auto) Bremer # (Auto) Eos # (Auto) Baso # (Auto) Polychromasia Anisocytosis PT INR APTT PTT Ratio Sodium Potassium Chloride Carbon Dioxide Anion Gap BUN Creatinine Est Cr Clr Drug Dosing Est GFR ( Amer) Est GFR (Non-Af Amer) BUN/Creatinine Ratio Glucose POC Glucose 81 141 H Calcium Total Bilirubin AST ALT Alkaline Phosphatase Total Creatine Kinase CK-MB (CK-2) CK/CKMB % Calc Troponin I Total Protein Albumin Globulin Albumin/Globulin Ratio TSH 06/05/18 06/05/18 06:37 07:43 WBC RBC Hgb Hct MCV MCH MCHC RDW Std Deviation RDW Coeff of Cori Plt Count MPV Immature Gran % (Auto) Neut % (Auto) Lymph % (Auto) Bremer % (Auto) Eos % (Auto) Baso % (Auto) Immature Gran # (Auto) Neut # (Auto) Lymph # (Auto) Bremer # (Auto) Eos # (Auto) Baso # (Auto) Polychromasia Anisocytosis PT INR APTT PTT Ratio Sodium 134 L Potassium 3.9 Chloride 96 L Carbon Dioxide 30 Anion Gap 8.0 BUN 41 H Creatinine 8.32 H* D Est Cr Clr Drug Dosing 6.3 Est GFR ( Amer) 5.2 Est GFR (Non-Af Amer) 4.5 BUN/Creatinine Ratio 5.0 L Glucose 130 H POC Glucose 136 H Calcium 8.8 Total Bilirubin AST ALT Alkaline Phosphatase Total Creatine Kinase CK-MB (CK-2) CK/CKMB % Calc Troponin I Total Protein Albumin Globulin Albumin/Globulin Ratio TSH (1) Hypotension Hypotension type: unspecified hypotension type Qualified Code(s): I95.9 - Hypotension, unspecified (2) Anemia, chronic renal failure Chronic kidney disease stage: stage 5 Qualified Code(s): N18.5 - Chronic kidney disease, stage 5; D63.1 - Anemia in chronic kidney disease
[2018-06-05 10:32] LABS: Hepatitis B Surface Antibody Non-Immune
--- NOTE | 2018-06-05 10:33 | Discharge Summary ---
Date of Service June 05, 2018 Admission HPI Per Admitting Provider Pt is 67 y/o F with PMH ESRD on HD on MWF, CAD, DM II, diastolic CHF, HTN, h/o CVA, chronic anemia, interstitial lung disease, KUSHAL, GERD, RA to ER for reported hypotension and hypoxia during dialysis today. It is reported that patient had 1.5 hours at dialysis when she became hypotensive with SBP in the 70s and hypoxic with O2 at 78% on room air. Patient was given 800 ml NSS. Patient states feels weak during and after dialysis chronically. States today she was also having generalized weakness during dialysis however denies dizziness, syncope, CP, SOB. Patient denies any shortness of breath or chest pain recently or over the past couple of weeks. Patient reports ate breakfast today. She does not use any home oxygen or inhalers. States makes very little urine. Denies fever/chills, diaphoresis, N/V/D/C, CARO, dizziness, syncope, vision changes, neck pain, orthopnea, palpitations, cough, sore throat, choking, otalgia, rhinorrhea, abdominal pain, paresthesias, weakness, extremity weakness, extremity edema, rashes. Patient with recent hospitalization 05/27/2018-05/28/2018 for weakness, fall, hypotension and hypoxia. Had negative venous Dopplers for DVT. VQ scan low probability. Urine culture without growth. Blood cultures without growth. Is discharged back to [facility] for rehab. Patient was admitted to [facility] on 06/03/2018 rehab. Patient with history of hospitalization 05/04/2018-05/08/2018 for generalized ambulatory dysfunction and was discharged to [facility]. Principal Diagnosis 1. Transient hypotension during dialysis, resolved 2. Transient hypoxia, resolved, no acute abnormalities noted Secondary diagnoses on discharge 1. End-stage renal disease on hemodialysis 2. Interstitial lung disease as per records 3. Anemia of chronic kidney disease 4. Coronary artery disease status post stent 5. Diabetes mellitus type 2 6. Congestive heart failure, chronic, diastolic 7. Hypertension 8. Hyperlipidemia 9. History of cerebrovascular accident 10. Obstructive sleep apnea 11. GERD 12. Obesity Discharge Exam Constitutional: WD/WN, vitals as above + obese Respiratory: normal respiratory effort, lungs clear to auscultation Cardiovascular: Rate/Rhythm: regular rate and regular rhythm Extremities: no pedal edema Gastrointestinal (Abdomen): normal bowel sounds, soft, nontender, no hepatosplenomegaly Neurologic: No focal deficits skin- AV fistula left upper extremity Discharge Data Allergies Allergy/AdvReac Type Severity Reaction Status Date / Time codeine Allergy Intermediate hives Verified 06/04/18 14:59 pioglitazone Allergy Intermediate Rash/Fluid Unverified 06/04/18 14:59 retention morphine Allergy Mild HIVES Verified 06/04/18 14:59 Consultations 06/04/18 15:35 ED Decision to Admit Stat 06/04/18 18:11 Consult Case Management - Discharge Planning Routine Consult Nephrology Routine Hospital Course (1) Hypotension: Pt presented to ER for reported hypotension and hypoxia during dialysis. It is reported that patient had 1.5 hours of dialysis when she became hypotensive with SBP in the 70s and hypoxic with O2 at 78% on room air. Reported pt was given 800 ml NSS. Patient states feels weak during and after dialysis chronically and denies dizziness, syncope, CP, SOB during dialysis. Upon ER arrival patient afebrile, P: 65, heart: 18, BP 88/38 up to 100/39, 95% on room air. Current BP stable 113/68 -Home dose: Coreg 6.25 mg PO BID --> Decreased to daily by nephrology -Monitor BP (2) Hypoxia: TRANSIENT HYPOXIA- RESOLVED It was reported by EMS that oxygen sat 78% on RA. Upon ER arrival pt 95% on room air. Patient was given Xopenex nebulizer t reatment and in ED- 98% on 1 L oxygen via nasal cannula. Pt with similar episode of hypoxia on 05/27/18 and was admitted to hospital with negative venous dopplers for DVT, VQ scan with low probability. Pt did well and was not discharged home on oxygen. No current CP, SOB, cough. No tachycardia or tachypnea. CXR- No acute abnormalities. Currently 97% on RA (3) Interstitial lung disease: Diagnosis listed on records. Not on inhalers or home oxygen -incentive spirometry (4) ESRD (end stage renal disease) on dialysis: On HD on MWF schedule. Had partial dialysis yesterday -K 3.9; Creatinine 8.32 -Not fluid overloaded , Euvolemic on exam -continue renal medications -Nephrology consulted- No indication for dialysis. Will go with her schedule MWF- next dialysis on Thursday (5) Anemia, chronic renal failure: Stable with no signs of active GI bleeding -Monitor H & H -receives Procrit (6) CAD (coronary artery disease): H/O cardiac cath and had 1 stent to LAD Denies CP, SOB -continue aspirin, plavix, statin -Coreg decreased to 6.125 mg daily from BID dosing by nephrology due to hypotension during dialysis (7) Diabetes mellitus, type 2: A1c: 5.8 in 04/2018 -hold home Novolin -Novolog sliding scale per protocol (8) Diastolic CHF: Echo: 05/05/18: EF: 65-70%, grade I diastolic dysfunction Euvolemic with no signs of volume overload -On Hemodialysis- MWF scheduled. No indication for urgent dialysis per d/w nephrology -Monitor I's & Os (9) Hypertension: Current hypotension -Coreg decreased to 6.125 mg daily from BID dosing by nephrology due to hypotension during dialysis (10) Hyperlipidemia: -continue statin (11) History of CVA (cerebrovascular accident): -continue aspirin, statin, plavix (12) KUSHAL (obstructive sleep apnea): -CPAP HS (13) GERD (gastroesophageal reflux disease): -continue H2 adithya DVT Prophylaxis -Heparin SQ Full Code as per discussion with pt Disposition Ok to discharge to [facility] from medical point of view CM on board Follows with Dr Yanet Golden for routine care Total Time Total Time Spent Total Time Spent (In Minutes): 38 minutes Discharge Plan Discharge Items Patient Disposition: Transfer [facility] Fac Reason For Visit: HYPOTENSION Discharge Diagnosis: 1. Transient hypotension during dialysis 2. Transient hypoxia, Resolved Discharge Goals: Decrease discomfort Activity: Resume your previous activity Activity Comment: PT/OT recommended at [facility] Non-emergency contact: Primary Care Provider Call non-emergency contact if: your symptoms worsen Follow-up/Referrals: Yanet Golden MD [Primary Care Provider] - Diet: Carb Consistent or DM2 and Dialysis Renal Fluids: 1800ml (7 cups) Addtl Provider Instructions: Medication changes : Coreg dosing decreased to 6.125 mg from daily to BID due to hypotension Prescriptions: Continued docusate sodium 100 mg Capsule 100 mg PO BID RF: 0 Nephrocaps 1 mg Capsule 1 cap PO DAILY RF: 0 Aranesp (in polysorbate) 100 mcg/0.5 mL Syringe 100 mcg subcut WK RF: 0 atorvastatin 40 mg Tablet 40 mg PO DAILY RF: 0 magnesium oxide 400 mg (241.3 mg magnesium) Tablet 400 mg PO DAILY RF: 0 clopidogrel [Plavix] 75 mg Tablet 75 mg PO DAILY RF: 0 nitroglycerin [Nitrostat] 0.4 mg Tablet, Sublingual 0.4 mg Sublingual UD PRN (Reason: Chest Pain) RF: 0 cholecalciferol (vitamin D3) [Vitamin D3] 5,000 unit Tablet 5,000 unit PO DAILY RF: 0 Novolin N NPH U-100 Insulin 100 unit/mL Suspension 26 unit SUBCUT QAM RF: 0 Novolin N NPH U-100 Insulin 100 unit/mL Suspension 22 unit SUBCUT PM RF: 0 gabapentin 300 mg Capsule 300 mg PO HS RF: 0 ranitidine HCl 150 mg Tablet 150 mg PO DAILY RF: 0 aspirin 81 mg Tablet,Delayed Release (Dr/Ec) 81 mg PO DAILY RF: 0 meclizine 25 mg Tablet 25 mg PO TID PRN (Reason: Vertigo) RF: 0 acetaminophen [Tylenol] 325 mg Capsule 650 mg PO QID PRN (Reason: Pain) RF: 0 sevelamer carbonate [Renvela] 800 mg tablet 2,400 mg PO UD RF: 0 Changed carvedilol 6.25 mg Tablet 6.25 mg PO DAILY Qty: 0 RF: 0 Stand-Alone Forms: [facility] Discharge Orders: Discharge Order (Routine); Ordered 06/05/18 Ordered By: Estefany Golden Skilled Items Patient informed of condition?: Yes DNR: No Discharge Level of Care: Skilled Communicable Disease: No Discharge Prognosis: Stable Admission Data Admit Date/Time: 06/04/18 16:42 Attending Provider: Estefany Golden Admit Provider: Sinai Collier Primary Care Provider: Yanet Golden Other Providers: Jayden Wasserman Manabendra Service: Telemetry Medical
[2018-06-05 10:43] LABS: Hepatitis B Surface Antigen Neg (Neg)
--- NOTE | 2018-06-06 20:16 | Emergency Department Note ---
Entered by Riky Alvarez acting as a scribe for Tereso Perez MD History of Present Illness General Chief complaint: Hypotension Time Seen by Provider: 06/04/18 14:16 Source: patient and EMS History of Present Illness Onset (ago): hour(s) (prior to arrival) Location: head (global) Pain Consistency: + other (persistent) Quality: + other (weakness) Relieved By: + other (hypotension and hypoxia improved with fluids and nasal cannula oxygen) Exacerbated By: + other (occurred during dialysis) Associated symptoms: + other (denies abdominal pain); no chest pain The patient is a 67 year old female who presents to the Emergency Room from dialysis with persistent weakness. EMS reports that the patient had a blood pressure of 100/37 at dialysis prior to arrival, of which she only received 1.5 hours. Her pulse ox also dropped to 80. She was given 800 mL saline and 2 L nasal cannula oxygen, which improved her blood pressure to 120/80 and her pulse ox to the high 90s. The patient states that she currently feels weak but denies other complaints, including chest pain or abdominal pain. She notes that she was weak prior to dialysis as well, stating I couldnt hold my head up. She states that she does not usually wear supplemental oxygen. She receives dialysis //. 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 Kessler. The patient was discharged from [facility] on May 14 to [facility]. Home Medications Home Medications Medication Instructions Recorded Confirmed Type Novolin N NPH U-100 Insulin 22 unit SUBCUT PM 10/29/17 06/04/18 History Novolin N NPH U-100 Insulin 26 unit SUBCUT QAM 10/29/17 06/04/18 History aspirin 81 mg PO DAILY 10/29/17 06/04/18 History atorvastatin 40 mg PO DAILY 10/29/17 06/04/18 History cholecalciferol (vitamin D3) 5,000 unit PO DAILY 10/29/17 06/04/18 History [Vitamin D3] clopidogrel [Plavix] 75 mg PO DAILY 10/29/17 06/04/18 History gabapentin 300 mg PO HS 10/29/17 06/04/18 History magnesium oxide 400 mg PO DAILY 10/29/17 06/04/18 History meclizine 25 mg PO TID PRN 10/29/17 06/04/18 History nitroglycerin [Nitrostat] 0.4 mg SUBLINGUAL UD PRN 10/29/17 06/04/18 History ranitidine HCl 150 mg PO DAILY 10/29/17 06/04/18 History acetaminophen [Tylenol] 650 mg PO QID PRN 05/04/18 06/04/18 History sevelamer carbonate [Renvela] 2,400 mg PO UD 05/04/18 06/04/18 History Aranesp (in polysorbate) 100 mcg SUBCUT WK 05/27/18 06/04/18 History Nephrocaps 1 cap PO DAILY 05/27/18 06/04/18 History docusate sodium 100 mg PO BID 05/27/18 06/04/18 History carvedilol 6.25 mg PO DAILY #0 tab 06/05/18 06/04/18 Rx Allergies Allergy/AdvReac Type Severity Reaction Status Date / Time codeine Allergy Intermediate hives Verified 06/04/18 14:59 pioglitazone Allergy Intermediate Rash/Fluid Unverified 06/04/18 14:59 retention morphine Allergy Mild HIVES Verified 06/04/18 14:59 Past Med/Surg History Medical History Anemia, chronic renal failure (Chronic) Secondary hyperparathyroidism (of renal origin) (Chronic) CAD (coronary artery disease) (Chronic) LAD x 1 11/2016 Diabetic peripheral neuropathy (Chronic) Diabetes mellitus with neuropathy (Chronic) AV fistula (Chronic) ESRD (end stage renal disease) on dialysis (Chronic) Hyperlipidemia (Chronic) Hypertension (Chronic) Interstitial lung disease (Chronic) Depression (Chronic) Anxiety (Chronic) KUSHAL (obstructive sleep apnea) (Chronic) "CPAP HS" GERD (gastroesophageal reflux disease) (Chronic) Diastolic CHF (Chronic) Hx of migraines (Chronic) Chronic anemia (Chronic) Diabetes mellitus, type 2 (Chronic) CKD (chronic kidney disease), stage IV (Chronic) History of CVA (cerebrovascular accident) Hypotension Hypoxia Callus (Acute) Hallux abducto valgus, bilateral (Acute) Surgical History History of coronary artery stent placement (Chronic) History of (Chronic) History of cholecystectomy (Chronic) Status post laser trabeculoplasty of eye (Chronic) History of bilateral cataract extraction (Chronic) Hx of total knee replacement (Chronic) Hx of shoulder surgery (Chronic) Family History Father Stomach cancer Other Coronary heart disease Diabetes Hypertension Social History Preferred Language: Angolan Communication Ability: Impaired Cryptologic Technician Operator/Analyst Required: No Beliefs That Will Affect Care: None marital status: Current Living Situation: Assisted Current Living Situation Comment: Patient currently resides at [facility], has who lives at their [place] Other Information That Helps Us Care for You: No Feels Safe at Home: Yes Smoking Status: Never smoker Second Hand Exposure: No Hx Alcohol Use: No Hx Substance Use: No Review of Systems See HPI for pertinent positives & negatives. and A total of 10 systems reviewed and were otherwise negative Physical Exam Vital Signs Vital Signs - 24 hr 06/04/18 14:10 06/04/18 14:11 06/04/18 14:15 Temperature 98.4 F Temperature Source Oral Sepsis Recent Fever Within 48 Hours No Sepsis New/Unexplained Change in Mental Status No Sepsis Action Taken by Nursing No Action Required Pulse Rate 65 64 Pulse Rate [Right Apical] Pulse Rate from SpO2 Sensor 64 Respiratory Rate 18 13 Respiratory Effort / Characteristics Non-Labored Respiratory Depth Normal Blood Pressure 88/38 L 88/38 L Blood Pressure Mean 54 54 Pulse Oximetry 95 97 98 Oxygen Delivery Method Room Air Room Air Room Air Oxygen Flow Rate 06/04/18 14:16 06/04/18 14:30 06/04/18 14:31 Temperature Temperature Source Sepsis Recent Fever Within 48 Hours Sepsis New/Unexplained Change in Mental Status Sepsis Action Taken by Nursing Pulse Rate 65 63 63 Pulse Rate [Right Apical] Pulse Rate from SpO2 Sensor 63 64 Respiratory Rate 17 16 17 Respiratory Effort / Characteristics Respiratory Depth Blood Pressure 97/41 L Blood Pressure Mean 59 Pulse Oximetry 80 L 84 L Oxygen Delivery Method Room Air Oxygen Flow Rate 06/04/18 14:32 06/04/18 14:40 06/04/18 15:00 Temperature Temperature Source Sepsis Recent Fever Within 48 Hours Sepsis New/Unexplained Change in Mental Status Sepsis Action Taken by Nursing Pulse Rate 61 64 Pulse Rate [Right Apical] 62 Pulse Rate from SpO2 Sensor 64 Respiratory Rate 20 18 15 Respiratory Effort / Characteristics Non-Labored Spontaneous Respiratory Depth Blood Pressure Blood Pressure Mean Pulse Oximetry 94 100 98 Oxygen Delivery Method Nasal Cannula Nasal Cannula Nasal Cannula Oxygen Flow Rate 4 4 4 06/04/18 15:01 06/04/18 15:30 06/04/18 15:31 Temperature Temperature Source Sepsis Recent Fever Within 48 Hours Sepsis New/Unexplained Change in Mental Status Sepsis Action Taken by Nursing Pulse Rate 64 63 63 Pulse Rate [Right Apical] Pulse Rate from SpO2 Sensor 64 60 63 Respiratory Rate 23 12 12 Respiratory Effort / Characteristics Respiratory Depth Blood Pressure 95/41 L 100/39 L Blood Pressure Mean 59 59 Pulse Oximetry 98 100 99 Oxygen Delivery Method Nasal Cannula Nasal Cannula Nasal Cannula Oxygen Flow Rate 4 4 4 06/04/18 16:00 Temperature Temperature Source Sepsis Recent Fever Within 48 Hours Sepsis New/Unexplained Change in Mental Status Sepsis Action Taken by Nursing Pulse Rate 64 Pulse Rate [Right Apical] Pulse Rate from SpO2 Sensor 64 Respiratory Rate 14 Respiratory Effort / Characteristics Respiratory Depth Blood Pressure Blood Pressure Mean Pulse Oximetry 98 Oxygen Delivery Method Nasal Cannula Oxygen Flow Rate 4 GENERAL: Awake, alert, well-appearing, in no acute distress HENT: Normocephalic, atraumatic. Oropharynx unremarkable. EYES: Normal conjunctiva. Sclera non-icteric. NECK: Supple. No nuchal rigidity. FROM. No JVD. RESPIRATORY: Clear to auscultation. CARDIAC: Regular rate, normal rhythm. Extremities warm and well perfused. Pulses equal. ABDOMEN: Soft, non-distended. No tenderness to palpation. No rebound or guarding. No masses. RECTAL: Deferred. MUSCULOSKELETAL: Chest examination reveals no tenderness. The back is symmetrical on inspection without obvious abnormality. There is no CVA tenderness to palpation. No joint edema. LOWER EXTREMITIES: Calves are equal size bilaterally and non-tender. No edema. No discoloration. NEURO: Normal sensorium. No sensory or motor deficits noted. SKIN: No rash or jaundice noted. Course 1441: The patient was evaluated in room A10. A complete history and physical examination were performed. 1525: I consulted Diamond Gutierres PA-C: [facility] Hospitalist with Dr. Collier. The patient will be reevaluated for hospitalization. Administered Medications Discontinued Medications Acetaminophen (Tylenol) 650 mg PO Q4H PRN PRN Reason: Pain or Fever Stop: 07/04/18 18:10 Last Admin: 06/04/18 22:44 Dose: 650 mg Documented by: [id number] Aspirin (Ecotrin Ectab) 81 mg PO DAILY TEMO Stop: 07/05/18 08:59 Last Admin: 06/05/18 08:30 Dose: 81 mg Documented by: [id number] Atorvastatin Calcium (Lipitor) 40 mg PO DAILY TEMO Stop: 07/05/18 08:59 Last Admin: 06/05/18 08:33 Dose: 40 mg Documented by: [id number] Carvedilol (Coreg) 6.25 mg PO BID TEMO Stop: 07/04/18 20:59 Last Admin: 06/04/18 20:59 Dose: Not Given Documented by: [id number] Carvedilol (Coreg) 6.25 mg PO DAILY TEMO Stop: 07/05/18 08:59 Last Admin: 06/05/18 08:32 Dose: 6.25 mg Documented by: [id number] Clopidogrel Bisulfate (Plavix) 75 mg PO DAILY TEMO Stop: 07/05/18 08:59 Last Admin: 06/05/18 08:32 Dose: 75 mg Documented by: [id number] Docusate Sodium (Colace) 100 mg PO BID TEMO Stop: 07/04/18 20:59 Last Admin: 06/05/18 08:31 Dose: 100 mg Documented by: [id number] Admin: 06/04/18 20:59 Dose: Not Given Documented by: [id number] Gabapentin (Neurontin) 300 mg PO HS TEMO Stop: 07/04/18 20:59 Last Admin: 06/04/18 21:00 Dose: 300 mg Documented by: [id number] Heparin Sodium (Porcine) (Heparin Sodium (Porcine)) 5,000 units SQ Q8 TEMO Stop: 07/04/18 21:59 Last Admin: 06/05/18 06:09 Dose: 5,000 units Documented by: [id number] Cosigned by: [id number] Admin: 06/04/18 21:00 Dose: 5,000 units Documented by: [id number] Cosigned by: [id number] Insulin Aspart (Novolog Flexpen) 0 units SC ACHS TEMO Stop: 07/04/18 18:10 Last Admin: 06/05/18 12:32 Dose: 5 units Documented by: [id number] Cosigned by: [id number] Admin: 06/05/18 08:34 Dose: 3 units Documented by: [id number] Cosigned by: [id number] Admin: 06/04/18 22:23 Dose: Not Given Documented by: [id number] Cosigned by: [id number] Admin: 06/04/18 19:58 Dose: 1 units Documented by: [id number] Cosigned by: [id number] Levalbuterol HCl (Xopenex 1.25mg/3ml Neb) 1.25 mg NEB NOW STA Stop: 06/04/18 14:17 Last Admin: 06/04/18 14:40 Dose: 1.25 mg Documented by: [id number] Magnesium Oxide (Mag-Ox) 400 mg PO DAILY TEMO Stop: 07/05/18 08:59 Last Admin: 06/05/18 08:30 Dose: 400 mg Documented by: [id number] Ranitidine HCl (Zantac) 150 mg PO DAILY TEMO Stop: 07/05/18 08:59 Last Admin: 06/05/18 08:33 Dose: 150 mg Documented by: [id number] Sevelamer HCl (Renagel) 2,400 mg PO TIDM TEMO Stop: 07/05/18 07:59 Last Admin: 06/05/18 08:31 Dose: 2,400 mg Documented by: [id number] Vitamin B Complex/Folic Acid (Nephrocaps) 1 cap PO DAILY TEMO Stop: 07/05/18 08:59 Last Admin: 06/05/18 08:33 Dose: 1 cap Documented by: [id number] Vitamin D (Vitamin D3) 5,000 units PO DAILY TEMO Stop: 07/05/18 08:59 Last Admin: 06/05/18 08:33 Dose: 5,000 units Documented by: [id number] Medical Decision Making Differential Diagnosis Differential diagnosis includes: metabolic, infection, hypo/hyperglycemia, elec trolyte abnormalities, cardiac sources, intracerebral event, toxicologic, neurologic, as well as others were entertained. Medical Records Attestation: I reviewed the patient's medical records. Home Medications Current Medication List: was personally reviewed by me Laboratory Data Attestation: I reviewed the patient's lab results. Result diagrams: 06/05/18 06:37 06/05/18 06:37 Lab Results 06/04/18 06/04/18 06/04/18 Range/Units 14:22 14:22 14:22 WBC 8.83 (4.8-10.8) K/uL RBC 2.83 L (4.2-5.4) M/uL Hgb 9.1 L (12.0-16.0) g/dL Hct 28.0 L (37-47) % MCV 98.9 (80-100) fL MCH 32.2 (25-34) pg MCHC 32.5 (32-36) g/dL RDW Std Deviation 75.0 H (36.4-46.3) fL RDW Coeff of Cori 21.3 H (11.5-14.5) % Plt Count 176 (130-400) K/uL MPV 9.4 (7.4-10.4) fL Immature Gran % (Auto) 0.5 % Neut % (Auto) 73.1 % Lymph % (Auto) 13.1 % Norman % (Auto) 11.2 % Eos % (Auto) 2.0 % Baso % (Auto) 0.1 % Immature Gran # (Auto) 0.04 H (0.00-0.02) K/uL Neut # (Auto) 6.45 (1.4-6.5) K/uL Lymph # (Auto) 1.16 L (1.2-3.4) K/uL Norman # (Auto) 0.99 H (0.11-0.59) K/uL Eos # (Auto) 0.18 (0-0.5) K/uL Baso # (Auto) 0.01 (0-0.2) K/uL Polychromasia 1+ Anisocytosis Present PT 10.5 (9.0-12.0) Seconds INR 1.0 (0.9-1.1) APTT 26.2 (21.0-31.0) Seconds PTT Ratio 1.0 Sodium 137 (136-145) mmol/L Potassium 3.4 L (3.5-5.1) mmol/L Chloride 98 (98-107) mmol/L Carbon Dioxide 31 (21-32) mmol/L Anion Gap 8.0 (3-11) BUN 28 H (7-18) mg/dl Creatinine 5.90 H* (0.6-1.2) mg/dl Est Cr Clr Drug Dosing 9.1 ml/min Est GFR ( Amer) 7.8 Est GFR (Non-Af Amer) 6.8 BUN/Creatinine Ratio 4.7 L (10-20) Glucose 74 (70-99) mg/dl POC Glucose (70-99) Calcium 8.5 (8.5-10.1) mg/dl Total Bilirubin 0.5 (0.2-1) mg/dl AST 33 (15-37) U/L ALT 41 (12-78) U/L Alkaline Phosphatase 91 (45-117) U/L Total Creatine Kinase 120 (26-192) U/L CK-MB (CK-2) 1.3 (0.5-3.6) ng/ml CK/CKMB % Calc 1.1 (0-3.0) Troponin I < 0.015 (0-0.045) ng/ml Total Protein 6.8 (6.4-8.2) gm/dl Albumin 2.9 L (3.4-5.0) gm/dl Globulin 3.9 (2.5-4.0) gm/dl Albumin/Globulin Ratio 0.7 L (0.9-2) TSH 1.220 (0.300-4.500) uIu/ml Hep Bs Antigen (Neg) Hep Bs Antibody Hep Bs Antibody, Quant (>or=10mIU/mL Immune) mIU/mL 06/04/18 06/04/18 06/05/18 Range/Units 18:36 22:22 06:37 WBC 6.51 (4.8-10.8) K/uL RBC 2.95 L (4.2-5.4) M/uL Hgb 9.7 L (12.0-16.0) g/dL Hct 29.8 L (37-47) % MCV 101.0 H (80-100) fL MCH 32.9 (25-34) pg MCHC 32.6 (32-36) g/dL RDW Std Deviation 78.3 H (36.4-46.3) fL RDW Coeff of Cori 21.8 H (11.5-14.5) % Plt Count 172 (130-400) K/uL MPV 9.7 (7.4-10.4) fL Immature Gran % (Auto) % Neut % (Auto) % Lymph % (Auto) % Norman % (Auto) % Eos % (Auto) % Baso % (Auto) % Immature Gran # (Auto) (0.00-0.02) K/uL Neut # (Auto) (1.4-6.5) K/uL Lymph # (Auto) (1.2-3.4) K/uL Norman # (Auto) (0.11-0.59) K/uL Eos # (Auto) (0-0.5) K/uL Baso # (Auto) (0-0.2) K/uL Polychromasia Anisocytosis PT (9.0-12.0) Seconds INR (0.9-1.1) APTT (21.0-31.0) Seconds PTT Ratio Sodium (136-145) mmol/L Potassium (3.5-5.1) mmol/L Chloride (98-107) mmol/L Carbon Dioxide (21-32) mmol/L Anion Gap (3-11) BUN (7-18) mg/dl Creatinine (0.6-1.2) mg/dl Est Cr Clr Drug Dosing ml/min Est GFR ( Amer) Est GFR (Non-Af Amer) BUN/Creatinine Ratio (10-20) Glucose (70-99) mg/dl POC Glucose 81 141 H (70-99) Calcium (8.5-10.1) mg/dl Total Bilirubin (0.2-1) mg/dl AST (15-37) U/L ALT (12-78) U/L Alkaline Phosphatase (45-117) U/L Total Creatine Kinase (26-192) U/L CK-MB (CK-2) (0.5-3.6) ng/ml CK/CKMB % Calc (0-3.0) Troponin I (0-0.045) ng/ml Total Protein (6.4-8.2) gm/dl Albumin (3.4-5.0) gm/dl Globulin (2.5-4.0) gm/dl Albumin/Globulin Ratio (0.9-2) TSH (0.300-4.500) uIu/ml Hep Bs Antigen (Neg) Hep Bs Antibody Hep Bs Antibody, Quant (>or=10mIU/mL Immune) mIU/mL 06/05/18 06/05/18 06/05/18 Range/Units 06:37 07:43 09:27 WBC (4.8-10.8) K/uL RBC (4.2-5.4) M/uL Hgb (12.0-16.0) g/dL Hct (37-47) % MCV (80-100) fL MCH (25-34) pg MCHC (32-36) g/dL RDW Std Deviation (36.4-46.3) fL RDW Coeff of Cori (11.5-14.5) % Plt Count (130-400) K/uL MPV (7.4-10.4) fL Immature Gran % (Auto) % Neut % (Auto) % Lymph % (Auto) % Norman % (Auto) % Eos % (Auto) % Baso % (Auto) % Immature Gran # (Auto) (0.00-0.02) K/uL Neut # (Auto) (1.4-6.5) K/uL Lymph # (Auto) (1.2-3.4) K/uL Norman # (Auto) (0.11-0.59) K/uL Eos # (Auto) (0-0.5) K/uL Baso # (Auto) (0-0.2) K/uL Polychromasia Anisocytosis PT (9.0-12.0) Seconds INR (0.9-1.1) APTT (21.0-31.0) Seconds PTT Ratio Sodium 134 L (136-145) mmol/L Potassium 3.9 (3.5-5.1) mmol/L Chloride 96 L (98-107) mmol/L Carbon Dioxide 30 (21-32) mmol/L Anion Gap 8.0 (3-11) BUN 41 H (7-18) mg/dl Creatinine 8.32 H* D (0.6-1.2) mg/dl Est Cr Clr Drug Dosing 6.3 ml/min Est GFR ( Amer) 5.2 Est GFR (Non-Af Amer) 4.5 BUN/Creatinine Ratio 5.0 L (10-20) Glucose 130 H (70-99) mg/dl POC Glucose 136 H (70-99) Calcium 8.8 (8.5-10.1) mg/dl Total Bilirubin (0.2-1) mg/dl AST (15-37) U/L ALT (12-78) U/L Alkaline Phosphatase (45-117) U/L Total Creatine Kinase (26-192) U/L CK-MB (CK-2) (0.5-3.6) ng/ml CK/CKMB % Calc (0-3.0) Troponin I (0-0.045) ng/ml Total Protein (6.4-8.2) gm/dl Albumin (3.4-5.0) gm/dl Globulin (2.5-4.0) gm/dl Albumin/Globulin Ratio (0.9-2) TSH (0.300-4.500) uIu/ml Hep Bs Antigen Neg (Neg) Hep Bs Antibody Non-Immune Hep Bs Antibody, Quant < 3.10 L (>or=10mIU/mL Immune) mIU/mL 06/05/18 Range/Units 11:56 WBC (4.8-10.8) K/uL RBC (4.2-5.4) M/uL Hgb (12.0-16.0) g/dL Hct (37-47) % MCV (80-100) fL MCH (25-34) pg MCHC (32-36) g/dL RDW Std Deviation (36.4-46.3) fL RDW Coeff of Cori (11.5-14.5) % Plt Count (130-400) K/uL MPV (7.4-10.4) fL Immature Gran % (Auto) % Neut % (Auto) % Lymph % (Auto) % Norman % (Auto) % Eos % (Auto) % Baso % (Auto) % Immature Gran # (Auto) (0.00-0.02) K/uL Neut # (Auto) (1.4-6.5) K/uL Lymph # (Auto) (1.2-3.4) K/uL Norman # (Auto) (0.11-0.59) K/uL Eos # (Auto) (0-0.5) K/uL Baso # (Auto) (0-0.2) K/uL Polychromasia Anisocytosis PT (9.0-12.0) Seconds INR (0.9-1.1) APTT (21.0-31.0) Seconds PTT Ratio Sodium (136-145) mmol/L Potassium (3.5-5.1) mmol/L Chloride (98-107) mmol/L Carbon Dioxide (21-32) mmol/L Anion Gap (3-11) BUN (7-18) mg/dl Creatinine (0.6-1.2) mg/dl Est Cr Clr Drug Dosing ml/min Est GFR ( Amer) Est GFR (Non-Af Amer) BUN/Creatinine Ratio (10-20) Glucose (70-99) mg/dl POC Glucose 254 H (70-99) Calcium (8.5-10.1) mg/dl Total Bilirubin (0.2-1) mg/dl AST (15-37) U/L ALT (12-78) U/L Alkaline Phosphatase (45-117) U/L Total Creatine Kinase (26-192) U/L CK-MB (CK-2) (0.5-3.6) ng/ml CK/CKMB % Calc (0-3.0) Troponin I (0-0.045) ng/ml Total Protein (6.4-8.2) gm/dl Albumin (3.4-5.0) gm/dl Globulin (2.5-4.0) gm/dl Albumin/Globulin Ratio (0.9-2) TSH (0.300-4.500) uIu/ml Hep Bs Antigen (Neg) Hep Bs Antibody Hep Bs Antibody, Quant (>or=10mIU/mL Immune) mIU/mL Imaging Data Radiologist's Impression: Radiology results as stated below per my review and the radiologist's interpretation: XR chest 1V portable HISTORY: weakness COMPARISON: Chest 05/27/2018. FINDINGS: No pneumothorax. No pleural effusions. The lungs are clear. No evidence for pulmonary edema. The heart remains mildly enlarged. Mitral and disc calcification seen again noted. There is a right shoulder prosthesis. IMPRESSION: Stable mild cardiomegaly. No acute process within the chest. Electronically signed by: Manny Reza M.D. 06/04/2018 2:39 PM ECG Data Attestation: I personally reviewed and interpreted this ECG as follows: Indication: weakness Rate (beats per minute): 65 Rhythm: normal sinus Findings: + other (old anterior infarct); no ST depression and no ST elevation Blood Pressure Blood Pressure Findings: Low blood pressure Blood Pressure Disposition: further management by hospitalist ISMA Narrative This is a 67-year-old female who presents emergency department complaining of hypoxia as well as hypotension. The patient was in dialysis today when she became suddenly hypoxic as well as hypotensive. Based on this she was sent to the emergency department. She was given an hour-long breathing treatment here in the emergency department. Patient remains hypoxic and remains on oxygen. For this reason I did discuss her case with the hospitalist service who agreed to admit the patient. I will note the patient's creatinine level is grossly palmer vated. She does not have an elevation in her white blood cell count. Patient was in agreement with the treatment plan. Impression & Plan Hypoxia, Weakness, Hypotension Discharge Plan Visit Data *Final* Discharge Date/Time: 06/04/18 17:45 Chief Complaint: Hypotension ED Provider: Tereso Perez Discharge Problem: Hypoxia, Weakness, Hypotension Patient Disposition: Admitted As Inpatient Discharge Instructions Interventions: ED Discharge Assessment Last Done: 06/04/18 17:45 Discharge Problem: Hypotension Qualifiers: Hypotension type: unspecified hypotension type Qualified Code(s): I95.9 - Hypotension, unspecified The scribe's documentation has been prepared under my direction and personally reviewed by me in its entirety. I confirm that the note above accurately reflects all work, treatment, procedures, and medical decision making performed by me.
--- OUTSIDE RECORDS SUMMARY | 2018-06-07 22:22 | External Medical Summary | Continuity of Care Document ---
:1950 Author Name Gilmar Kelly, Provider Address Unavailable Unavailable , Care Team Providers Name Role Phone Neema Martínez DOfer Unavailable [email or web address] GARCIA Unavailable Unavailable Unavailable Unavailable Unavailable Problems ESBL (extended spectrum beta-lactamase) producing bacteria infection (041.89) (A49.9) E. coli infection (041.49) (A49.8) E-coli UTI (599.0) (N39.0) Chest heaviness (786.59) (R07.89) SOB (shortness of breath) on exertion (786.05) (R06.02) Allergies and Adverse Reactions Actos TABS (Allergy) Reaction: Edema Codeine Derivatives (Allergy) Morphine Derivatives (Allergy) Reaction: Hives pioglitazone (Allergy) Medications OneTouch Ultra Blue STRP; USE 1 STRIP TO TEST BSG 4 TO 5 MALENA ES DAILY Refills: 0 OneTouch UltraSoft Lancets MISC Refills: 0 Insulin Syringe 30G X 1/2" 0.5 ML; USE TO INJECT INSULIN 4 T IMES DAILY Refills: 0 Aspirin 81 MG TABS; TAKE 1 TABLET DAILY. Refills: 0 Os-George TABS; TAKE 1 TABLET DAILY. Refills: 0 Vitamin D3 5000 UNIT Oral Tablet Refills: 0 Docusate Sodium 100 MG Oral Capsule; TAKE 1 CAPSULE TWICE DA INGE. Refills: 0 Novolin L 100 UNIT/ML SUSP; 55 units every 12 hours plus sli ding scale Refills: 0 NovoLIN N 100 UNIT/ML Subcutaneous Suspe nsion; subq before meals and at bedtime plus sliding scale Refills: 0 Mag-Ox 400 TABS; TAKE 1 TABLET DAILY. Refills: 0 Meclizine HCl - 25 MG Oral Tablet; tid as needed for dizzine ss or vertigo Refills: 0 Nystatin POWD Refills: 0 Pantoprazole Sodium 20 MG Oral Tablet Delayed Release; Take 1 tablet daily Quantity: 90 Refills: 3 Simvastatin 10 MG Oral Tablet; 1 BY MOUTH EVERY NIGHT AT BED TIME Refills: 0 Zolpidem Tartrate 5 MG Oral Tablet; 1 PRN for sleep Refills: 0 hydrALAZINE HCl - 50 MG Oral Tablet; 1 bid Refills: 0 Carvedilol 6.25 MG Oral Tablet; TAKE 1 TABLET TWICE DAILY WI TH MEALS. Quantity: 90 Refills: 3 SUMAtriptan Succinate 25 MG Oral Tablet; TAKE 1 TABLET FOR MIGRAINE RELIEF. MAY REPEAT EVERY 2 HOURS. MAX 200MG/DAY. Refills: 0 amLODIPine Besylate 10 MG Oral Tablet; TAKE 1 TABLET DAILY A S DIRECTED. Refills: 0 Acetaminophen 325 MG Oral Tablet; TAKE 2 TABLET Every 4 hour s PRN Refills: 0 Calcium 500 MG TABS; TAKE 1 TABLET Twice daily with food Refills: 0 Ferrous Sulfate 325 (65 Fe) MG Oral Tabl et; TAKE 1 TABLET TWICE DAILY WITH MEALS. Refills: 0 Procedures Procedures not documented Immunizations Immunizations not documented Plan of Treatment Planned Observations Planned Goals not documented Results No Known Results Results not documented Encounters Appointment; Layla Urrutia PA-C 23-Jun-2016 9:00 Encounter Diagnosis: Problem not documented
== END 2018-06-05 13:10 ==
LOC: ED 14:07 → 2W 14:07

== ENCOUNTER 2018-10-26 06:26 | Inpatient (IN) ==
--- NOTE | 2018-10-08 08:13 | Anesthesiology Consultation ---
Date of Service October 08, 2018 Assessment & Plan (1) Encounter for pre-operative examination: Chart Review Chart Review: Acceptable Risk for Surgery (pending appropriate potassium level ordered for day of surgery) History Surgery Operation Date: 10/12/18 08:00 Proposed Procedures p Left Arm Distal Revascularization Interval Ligation - Gregory Chambers MD Allergies Allergy/AdvReac Type Severity Reaction Status Date / Time codeine Allergy Intermediate hives Verified 10/08/18 08:05 pioglitazone Allergy Intermediate Rash/Fluid Verified 10/08/18 08:05 retention morphine Allergy Mild HIVES Verified 10/08/18 08:05 Medications Home Medications Medication Instructions Recorded Confirmed Last Taken Novolin N NPH U-100 Insulin 22 unit SUBCUT PM 10/29/17 10/01/18 09/30/18 22:00 Novolin N NPH U-100 Insulin 26 unit SUBCUT QAM 10/29/17 10/01/18 10/01/18 05:00 aspirin 81 mg PO DAILY 10/29/17 10/01/18 10/01/18 05:00 atorvastatin 40 mg PO DAILY 10/29/17 10/01/18 10/01/18 05:00 cholecalciferol (vitamin D3) 5,000 unit PO DAILY 10/29/17 10/01/18 10/01/18 05:00 [Vitamin D3] clopidogrel [Plavix] 75 mg PO DAILY 10/29/17 10/01/18 10/01/18 05:00 gabapentin 300 mg PO HS 10/29/17 10/01/18 09/30/18 22:00 magnesium oxide 400 mg PO DAILY 10/29/17 10/01/18 10/01/18 05:00 nitroglycerin [Nitrostat] 0.4 mg SUBLINGUAL UD PRN 10/29/17 10/01/18 Unknown ranitidine HCl 150 mg PO DAILY 10/29/17 10/01/18 10/01/18 05:00 acetaminophen [Tylenol] 650 mg PO QID PRN 05/04/18 10/01/18 09/30/18 22:00 sevelamer carbonate [Renvela] 800 mg PO TIDM 05/04/18 10/01/18 09/30/18 18:00 Nephrocaps 1 cap PO DAILY 05/27/18 10/01/18 09/30/18 05:00 docusate sodium 100 mg PO BID 05/27/18 10/01/18 10/01/18 05:00 insulin regular human 1 sliding scale dose SUBCUT 08/29/18 10/01/18 09/30/18 USEASDIRECTD metoprolol succinate [Toprol XL] 25 mg PO QPM 08/29/18 10/01/18 09/30/18 22:00 miconazole nitrate 1 applic TOPICAL TID 08/29/18 10/01/18 09/30/18 22:00 Past Medical History Medical History Anemia, chronic renal failure (Chronic) Secondary hyperparathyroidism (of renal origin) (Chronic) CAD (coronary artery disease) (Chronic) LAD x 1 11/2016 Diabetic peripheral neuropathy (Chronic) Diabetes mellitus with neuropathy (Chronic) AV fistula (Chronic) ESRD (end stage renal disease) on dialysis (Chronic) Hyperlipidemia (Chronic) Hypertension (Chronic) Interstitial lung disease (Chronic) Depression (Chronic) Anxiety (Chronic) KUSHAL (obstructive sleep apnea) (Chronic) "CPAP HS" GERD (gastroesophageal reflux disease) (Chronic) Diastolic CHF (Chronic) Hx of migraines (Chronic) Chronic anemia (Chronic) Diabetes mellitus, type 2 (Chronic) CKD (chronic kidney disease), stage IV (Chronic) Callus (Acute) Hallux abducto valgus, bilateral (Acute) History of CVA (cerebrovascular accident) Hypotension Hypoxia Past Family History Family History Father Stomach cancer Other Coronary heart disease Diabetes Hypertension Past Surgical History Surgical History History of coronary artery stent placement (Chronic) History of (Chronic) History of cholecystectomy (Chronic) Status post laser trabeculoplasty of eye (Chronic) History of bilateral cataract extraction (Chronic) Hx of total knee replacement (Chronic) Hx of shoulder surgery (Chronic) History of arteriovenous shunt Social History Smoking Status: Never smoker Hx Alcohol Use: No Hx Substance Use: No substance use type: does not use Testing Laboratory Results Laboratory Tests 10/01/18 08:00 Potassium 4.9 Electrocardiogram Date: 06/15/18 Findings: + NSR @ (82) old anterolateral infarct Echocardiogram Date: 05/05/18 EF: 65-70% LV Function: normal Valvular Disease: + no significant valvular disease no pericardial effusion
[~2018-10-26 06:26] MED LIST changes: -ACET-1693 PO; -AMLO-114 PO; -ASPI81TA28 PO; -ATOR-24 PO; -B-COCAP28 PO; -CALC667C PO; +CEFAZOLIN 2,000 MG/15 ML SYR IV SCH; -CHOLCAP5 PO; -CLOP1TAB15 PO; -CRG125 PO; -HYDR-4717 PO; -INSP SC; -MAGN400T6 PO; -MECL-91 PO; -NTRGSL/4 SL; -NVLNI SC; -RANI150T2 PO; +SODIUM CHLORIDE 0.9% 1000ML 1,000 ML IV SCH; +SODIUM CHLORIDE 0.9% 1000ML IV SCH; -TRAM-10 PO; -VITAMIN D3 PO
--- NOTE | 2018-10-26 06:34 | History & Physical Report ---
Date of Service October 26, 2018 History of Present Illness Primary Care Provider: Yanet Golden MD [facility] [address] History & Physical Report Signed Patient: EDDY URRUTIA Admit Date: 09/14/18 MR#: [id number] Att Phy: Gregory Chambers M.D. Acct ID:[id number] Pippa Phy: Yanet Golden MD Date: 1950 Fam Phy: Age: 68 Location: U Sex: F Room/Bed: cc: ~ *NOTICE TO RECEIVING DEMOCRAT/AGENCY This information is strictly Confidential and protected under [place] law. [place] law prohibits you from making any further disclosure of this information unless further disclosure is expressly permitted by the written consent of the person to whom it pertains or is authorized by law. A general authorization for the release of medical or other information is not sufficient for this purpose. Hospital accepts no responsibility if the information is made available to any other person, INCLUDING THE PATIENT. Date of Service October 01, 2018 Assessment & Plan (1) Dialysis AV fistula malfunction: Due to the monophasic flow in the arm seen on imaging, patient is admitted for a left upper extremity arteriogram. The fistula will also be evaluated at that time. I have discussed the risks options and benefits of the procedure with the patient. The patient understands the risks options and benefits and agrees to the procedure. History of Present Illness Chief Complaint: Malfunctioning fistula Primary Care Provider: Yanet Golden MD Ms. Urrutia is known to have a left brachiocephalic AV fistula. This was created in August of 2016. The patient has been dialyzing through her fistula since last year. According to the patient, they are not having any trouble dialyzing her. The patient states that she has chronic weakness and numbness in her left hand. She also occasionally has some pain. She had previously been evaluated by neurology according to the patient, and she was told that she has carpal tunnel syndrome as well as a component of neuropathy in that left hand. A few weeks ago, she suffered a rather sudden onset of swelling in her left hand with a little bit on her forearm according to the patient. She went to her local emergency room where they evaluated her. Because she has a fistula in the arm, the staff there ordered ultrasounds, which did not demonstrate any particular abnormalities, although they did wish to have her followed up here due to her having the fistula there. The patient states that the swelling that she previously had when going to the emergency room has resolved. She did have an Eliecer wrap on her hand from the emergency room which was only on for a few days. After taking it off, she no longer had any swelling. The patient states that she chronically is unable to straighten out her left fingers, but that this has been a problem for a number of years. She denies any wounds or discoloration of her left hand. She states that it occasionally feels cool and is chronically weak. Of note, the patient also has a previous fracture of her left shoulder in the remote past, which did not heal well and has some weakness and decreased range of motion in that right arm as well. IMAGING: An ultrasound performed of her left arm at [facility] during her recent ER visit demonstrates monophasic flow arterially thro ughout her left arm. Allergies Allergy/AdvReac Type Severity Reaction Status Date / Time codeine Allergy Intermediate hives Verified 09/15/18 08:44 pioglitazone Allergy Intermediate Rash/Fluid Verified 09/15/18 08:44 retention morphine Allergy Mild HIVES Verified 09/15/18 08:44 Home Medications Home Medications Medication Instructions Recorded Confirmed Type Novolin N NPH U-100 Insulin 22 unit SUBCUT PM 10/29/17 09/15/18 History Novolin N NPH U-100 Insulin 26 unit SUBCUT QAM 10/29/17 09/15/18 History aspirin 81 mg PO DAILY 10/29/17 09/15/18 History atorvastatin 40 mg PO DAILY 10/29/17 09/15/18 History cholecalciferol (vitamin D3) 5,000 unit PO DAILY 10/29/17 09/15/18 History [Vitamin D3] clopidogrel [Plavix] 75 mg PO DAILY 10/29/17 09/15/18 History gabapentin 300 mg PO HS 10/29/17 09/15/18 History magnesium oxide 400 mg PO DAILY 10/29/17 09/15/18 History nitroglycerin [Nitrostat] 0.4 mg SUBLINGUAL UD PRN 10/29/17 09/15/18 History ranitidine HCl 150 mg PO DAILY 10/29/17 09/15/18 History acetaminophen [Tylenol] 650 mg PO QID PRN 05/04/18 09/15/18 History sevelamer carbonate [Renvela] 800 mg PO TIDM 05/04/18 09/15/18 History Nephrocaps 1 cap PO DAILY 05/27/18 09/15/18 History docusate sodium 100 mg PO BID 05/27/18 09/15/18 History insulin regular human 1 sliding scale dose SUBCUT 08/29/18 09/15/18 History USEASDIRECTD metoprolol succinate [Toprol XL] 25 mg PO QPM 08/29/18 09/15/18 History miconazole nitrate 1 applic TOPICAL TID 08/29/18 09/15/18 History Past Med/Surg History Social History Preferred Language: Sami Communication Ability: Effective Sustainable Design Coordinator Required: No Beliefs That Will Affect Care: None marital status: Current Living Situation: Spouse Current Living Situation Comment: Patient currently resides at [facility], has who lives at their [facility] Other Information That Helps Us Care for You: No Feels Safe at Home: Yes Safety Concerns: Feels Safe At This Time Smoking Status: Never smoker Do You Dip or Chew Tobacco: No ; Second Hand Exposure: No ; Hx Alcohol Use: No Hx Substance Use: No Review of Systems All systems reviewed & are unremarkable except as noted in HPI & below Physical Exam Physical Exam: Constitutional: In general, patient is an obese, chronically ill-appearing, middle-aged female in no acute distress. She is in a wheelchair, nonambulatory presently. Her left upper arm AV fistula has a good thrill and bruit. Her radial and ulnar pulses in the left wrist are not palpable. Her left fingers are slightly cool to touch, but they do have capillary refill and do have a decreased range of motion and strength of 3/5. Lungs are clear. Cor has a RRR. Abd exam is benign. She has +2 femoral pulses Signed By: <Electronically signed by Gregory Chambers MD> 10/01/1810 Created: 10/01/18 06 The status of this report is Signed. Draft = Not yet reviewed or approved by Medical Physician. Signed = Reviewed and approved by Medical Physician. Allergies Allergy/AdvReac Type Severity Reaction Status Date / Time codeine Allergy Intermediate hives Verified 10/08/18 08:05 pioglitazone Allergy Intermediate Rash/Fluid Verified 10/08/18 08:05 retention morphine Allergy Mild HIVES Verified 10/08/18 08:05 Home Medications Home Medications Medication Instructions Recorded Confirmed Type Novolin N NPH U-100 Insulin 22 unit SUBCUT PM 10/29/17 10/08/18 History Novolin N NPH U-100 Insulin 26 unit SUBCUT QAM 10/29/17 10/08/18 History aspirin 81 mg PO QAM 10/29/17 10/08/18 History atorvastatin 40 mg PO QAM 10/29/17 10/08/18 History cholecalciferol (vitamin D3) 5,000 unit PO QAM 10/29/17 10/08/18 History [Vitamin D3] clopidogrel [Plavix] 75 mg PO QAM 10/29/17 10/08/18 History gabapentin 300 mg PO QPM 10/29/17 10/08/18 History magnesium oxide 400 mg PO DAILY 10/29/17 10/08/18 History nitroglycerin [Nitrostat] 0.4 mg SUBLINGUAL UD PRN 10/29/17 10/08/18 History ranitidine HCl 150 mg PO QAM 10/29/17 10/08/18 History acetaminophen [Tylenol] 650 mg PO QID PRN 05/04/18 10/08/18 History sevelamer carbonate [Renvela] 800 mg PO TIDM 05/04/18 10/08/18 History Nephrocaps 1 cap PO QAM 05/27/18 10/08/18 History docusate sodium 100 mg PO BID 05/27/18 10/08/18 History insulin regular human 1 sliding scale dose SUBCUT 08/29/18 10/08/18 History USEASDIRECTD metoprolol succinate [Toprol XL] 25 mg PO QPM 08/29/18 10/08/18 History miconazole nitrate 1 applic TOPICAL TID 08/29/18 10/08/18 History Past Med/Surg History Family History Father Stomach cancer Other Coronary heart disease Diabetes Hypertension Social History Preferred Language: Sami Communication Ability: Effective Sustainable Design Coordinator Required: No Beliefs That Will Affect Care: None marital status: Current Living Situation: Spouse Current Living Situation Comment: Patient currently resides at [facility], has who lives at their [place] Other Information That Helps Us Care for You: No Feels Safe at Home: Yes Safety Concerns: Feels Safe At This Time Smoking Status: Never smoker Do You Dip or Chew Tobacco: No ; Second Hand Exposure: Yes (as a child) ; Hx Alcohol Use: No Hx Substance Use: No
--- NOTE | 2018-10-26 07:23 | History & Physical Bridge Note ---
Date of Service October 26, 2018 History & Physical Bridge Note I have examined the patient, reviewed the History & Physical and in the interval since the performance of the History & Physical I have noted the following changes of clinical significance: no changes noted
[2018-10-26] MEDS ORDERED: fentaNYL citrate 100 MCG/2 ML VIAL IV PRN (08:12)
[2018-10-26] MEDS ORDERED: ePHEDrine sulfate 50 MG/ML AMP IV PRN (08:12)
[2018-10-26] MEDS ORDERED: ONDANSETRON INJ 2 MG/ML 2 ML VIAL IV PRN (08:12)
[2018-10-26] MEDS ORDERED: ATROPINE SULFATE 0.1 MG/ML 10ML SYR IV PRN (08:12)
[2018-10-26 08:18] LABS: BUN Creatinine Ratio 6.4 (10-20); Calcium 9.1 mg/dl (8.5-10.1); Creatinine Clr Calc Pharmacy 9.2 ml/min; Est GFR (African American) 7.9; Est GFR (Non-African American) 6.8; Potassium 4.7 mmol/L (3.5-5.1)
[2018-10-26] MEDS ORDERED: SODIUM CHLORIDE 0.9% 1000ML 1,000 ML IV SCH (09:00)
[2018-10-26] MEDS ORDERED: SODIUM CHLORIDE 0.9% 1000ML IV SCH (09:00)
[2018-10-26] MEDS ORDERED: ONDANSETRON INJ 2 MG/ML 2 ML VIAL ONE (09:24)
[2018-10-26] MEDS ORDERED: DEXAMETHASONE SOD INJ 4 MG/ML VIAL ONE (09:24)
[2018-10-26] MEDS ORDERED: PROPOFOL IV EMULSION 10 MG/ML 20 ML VIAL IV ONE (09:24)
[2018-10-26] MEDS ORDERED: fentaNYL citrate 100 MCG/2 ML VIAL ONE ×2 (09:24→10:33)
[2018-10-26] MEDS ORDERED: MIDAZOLAM HCL 1 MG/ML 2ML VIAL ONE (09:24)
[2018-10-26] MEDS ORDERED: LIDOCAINE HCL 2% 2 ML VIAL/AMP(20MG/ML) INFIL ONE (09:24)
[2018-10-26] MEDS ORDERED: HEPARIN (PORCINE) 1000 UNIT/ML 10 ML (CATH LAB USE ONLY) ONE (09:34)
[2018-10-26] MEDS ORDERED: LIDOCAINE HCL 1% 20 ML VIAL ONE (09:34)
[2018-10-26] MEDS ORDERED: THROMBIN FOR SOLN 20000 UNIT KIT ONE (09:35)
[2018-10-26] MEDS ORDERED: GELATIN SPONGE SZ 100 ONE (09:35)
[2018-10-26] MEDS ORDERED: BUPIVACAINE/EPINEPHRINE 0.5% MPF 1:200,000 30 ML VIAL ONE (09:35)
[2018-10-26] MEDS ORDERED: CEFAZOLIN 250 MG/ML 1 GM VIAL ONE ×2 (11:05→11:15)
[2018-10-26] MEDS ORDERED: HEPARIN SOD (PORCINE) 1000 UNIT/ML 10 ML VIAL ONE (12:00)
[2018-10-26] MEDS ORDERED: PHENYLEPHRINE HCL 10 MG/ML VIAL ONE (12:02)
[2018-10-26] MEDS ORDERED: ROCURONIUM BROMIDE 10 MG/ML 5 ML VIAL ONE (12:02)
[2018-10-26] MEDS ORDERED: VISIPAQUE IV PRN (13:03)
--- NOTE | 2018-10-26 13:33 | Post Operative Brief Note ---
Immediate Post Op Note v1 Date of Surgery October 26, 2018 Pre & Post Diagnosis Operation Date: 10/26/18 08:50 Pre-Op Diagnosis: Steal Syndrome Left Arm Post-Op Diagnosis: Steal Syndrome Left Arm Procedure Operation Date: 10/26/18 08:50 Actual Procedures p Distal Revascularization Interval with Ligation Left Arm(Left) - Gregory Chambers MD Surgeon Gregory Chambers MD Can Cutter MD Alli, L.Minarchick,PAC Estimated Blood Loss 150 Findings Consistent with Post-Op Diagnosis Drains Teague Catheter (inserted by Ronnie Jean without difficulty, drained cloudy yellow urine. teague to be removed at end of case per md) Anesthesia Type General Complications none Disposition Accompanied Patient To Recovery: No Disposition: Recovery Room
[2018-10-26] MEDS ORDERED: LABETALOL HCL IV 5 MG/ML 20ML IV ONE (13:47)
[2018-10-26] MEDS ORDERED: FLUMAZENIL 0.1 MG/1 ML 10 ML VIAL ONE (13:53)
--- NOTE | 2018-10-26 14:02 | Operative Report ---
Post Operative Report Pre & Post Diagnosis Operation Date: 10/26/18 08:50 Pre-Op Diagnosis: Steal Syndrome Left Arm Post-Op Diagnosis: Steal Syndrome Left Arm Procedure Operation Date: 10/26/18 08:50 Actual Procedures p Distal Revascularization Interval with Ligation Left Arm(Left) - Gregory Chambers MD Surgeon Gregory Chambers MD Elementary School Teacher MD Alli, L.Minarchick,PAC Estimated Blood Loss 150 Findings Consistent with Post-Op Diagnosis Specimens None Anesthesia Type General Complications none Disposition Disposition: Recovery Room Indications Sepideh Urrutia is a 68-year-old woman with end-stage renal disease who is a previously placed left brachiocephalic AV fistula. She is been experiencing left-handed pain especially during dialysis and was found to have steal syndrome as documented by a prior angiogram. She was offered to undergo a distal revascularization and interval ligation procedure, and she agreed to proceed with this. Consent was signed the operative site was marked prior to her entering the operating room. Description of Procedure The patient was brought to the operating room and placed in the supine position with left arm out. General anesthesia was induced the patient was safely endotracheally intubated. The left arm was circumferentially prepped from the shoulder wrist, and the right thigh was prepped from below the knee to the groin. Patient was then sterilely draped in such manner to leave the 2 operative mcknight exposed. A surgical timeout was performed at this time and the patient identified. A longitudinal incision was sharply made in the patient's right groin and carried down to the thigh, subcutaneous tissues were divided with cautery. The patient's great saphenous vein was identified at its junction of the femoral vein and its duration traced distally. Unfortunately, the identified vein do not appear to be suitable conduit and we elected not to harvested. The subcu tissue of the thigh was then closed and the skin was stapled. We then turned our attention to to the left arm. Incision was made in the mid brachium using a #10 scalpel and the underlying soft tissue was divided with electrocautery. The brachial sheath was identified and entered, exposing the brachial artery, veins and median nerve. Sharp dissection was carefully carried out along the length of the brachial artery until a appropriate length was dissected for the creation of anastomosis. Following this we turned our attention to the lower arm included a longitudinal incision just below the elbow crease. A mix of sharp and blunt dissection was used to isolate the radial artery distal to the prior arteriovenous anastomosis. Dissection was then carried distally until sufficient length of the artery had been isolated from anastomosis. We then tunneled a 6mm x 50 cm [place] Propaten ringed PTFE graft along the medial aspect of the arm. The patient was given 5000 units of heparin and the radial artery was clamped proximally distally. An arteriotomy was made with a #11 blade, and then extended with a angled Por[place] scissor. A end-to-side anastomosis was then created using 7-0 Prolene in a running fashion. Upon completion of the distal stenosis the graft was allowed to be back-bleed and then clamped. We turned our attention to the proximal anastomosis and placed clamps proximally and distally along the brachial artery. An arteriotomy was given a #11 blade and widely extended using angled Porras scissors. The graft was cut to length and beveled to an appropriate length. Anastomosis was then created using CV6 suture in a running fashion. Upon completion of anastomosis and removal of the clamps, there is noted to be 2 areas of bleeding along the suture line. These were controlled with 60 Prolene in a [id number] fashion. We next turned our attention to performing a arteriogram of the left upper extremity. A micropuncture needle was used to access the proximal graft, and then upsized over a wire to the micropuncture sheath. A angled DeBakey clamp was placed across the radial artery between the AV anastomosis and her new bypass anastomosis. We then performed her angiogram which demonstrated good flow through the bypass artery with adequate filling of the distal radial artery and palmar arch. She was noted to have no flow through the ulnar artery, which was unchanged from a prior angiogram. If you need to be good filling of the AV fistula through the [place] brachial artery. We removed our micropuncture sheath and closed the arteriotomy that it created using a 60 Prolene in a [id number] fashion. At this point we proceeded to achieve hemostasis in both incisions through the use of electrocautery and thrombin-soaked Gelfoam. Once we are satisfied with the results, we proceeded to close each wound with a running 3-0 Vicryl and subcutaneous tissue. The distal incision was then closed with a 4-0 Vicryl in a running subicular fashion and Dermabond was applied to this wound. A surgical stapler was used to reapproximate skin of the upper incision. Clean dressings were then applied to the upper arm and leg incision. The patient was with safely extubated. The patient left the operation room in satisfactory condition and tolerated the procedure well. All needle and sponge counts were correct at the end of the procedure. Dr. Chambers was scrubbed and present for all critical portions the procedure. I attest to the content of the Intraoperative Record and any orders documented therein. Any exceptions are noted below.
[2018-10-26] MEDS ORDERED: ALBUMIN HUMAN 5% 12.5 GM/250 ML VIAL IV ONE (14:32)
[2018-10-26] MEDS ORDERED: ALBUMIN 5% 250 ML IV SCH (14:45)
--- NOTE | 2018-10-26 15:37 | Anesthesiology Progress Note ---
Date of Service October 26, 2018 Anesthesia Post Procedure Vital Signs Vital Signs: Temp Pulse Pulse Resp BP Pulse Ox 10/26/18 15:20 59 L 13 99/44 L 100 10/26/18 15:10 58 L 14 101/42 L 100 10/26/18 15:00 36.4 C L 58 L 11 L 94/43 L 100 10/26/18 14:50 36.4 C L 59 L 14 91/43 L 100 10/26/18 14:40 36.4 C L 59 L 14 78/42 L 100 10/26/18 14:30 36.4 C L 76 16 89/37 L 100 10/26/18 14:20 36.4 C L 61 22 79/43 L 100 10/26/18 14:10 36.4 C L 64 15 74/43 L 100 10/26/18 14:00 36.4 C L 67 16 95/43 L 100 10/26/18 07:12 36.7 C 63 18 135/52 L 96 Transfer of Care Handoff Completed per policy Notes Mental Status: alert / awake / arousable and participated in evaluation Patient Amnestic to Procedure: Yes Nausea / Vomiting: adequately controlled Pain: adequately controlled Airway Patency, RR, SpO2: stable & adequate BP & HR: stable & adequate Hydration State: stable & adequate Anesthetic Complications: no major complications apparent and Pt Satisfied with anesthetic care
[2018-10-26] MEDS ORDERED: HYDROmorphone INJ 0.5 MG/0.5 ML SYR ONE (17:36)
[2018-10-26] MEDS: CEFAZOLIN 2000MG 2,000 MG/15 ML SYR IV SCH (18:03)
[2018-10-26] MEDS: SODIUM CHLORIDE 0.9% 500 ML IV SCH (18:03)
[2018-10-26] MEDS: HYDROmorphone INJ 0.5 MG/0.5 ML SYR IV PRN (21:16)
[2018-10-26] MEDS ORDERED: PHARMACY GLYCEMIC MGMT CONSULT PRN (21:43)
[2018-10-26] MEDS ORDERED: GLUCOSE 40% GEL 15 GM TUBE PO PRN (21:45)
[2018-10-26] MEDS ORDERED: CARBOHYDRATES FOR HYPOGLYCEMIA PO PRN (21:45)
[2018-10-26] MEDS ORDERED: GLUCAGON FOR INJ 1 MG VIAL SQ PRN (21:45)
[2018-10-26] MEDS ORDERED: DEXTROSE 50% 50 ML SYRINGE IV PRN (21:45)
[2018-10-26] MEDS ORDERED: GLUCOSE 10 TABS/TUBE PO PRN (21:45)
[2018-10-26] MEDS ORDERED: Nursing to Pharmacy Communication ONE (21:54)
[2018-10-26] MEDS ORDERED: INSULIN GLARGINE SOLOSTAR 100 UNITS/ML 3 ML PEN SC ONE (22:00)
[2018-10-26] MEDS: INSULIN ASPART 100 UNITS/ML 3 ML PEN SC SCH (22:04)
[2018-10-26] MEDS ORDERED: NITROGLYCERIN SL 0.4 MG/TAB TAB SL PRN (22:11)
[2018-10-26] MEDS: OXYCODONE/ACETAMINOPHEN 5mg/325mg TAB PO PRN (23:09)
[2018-10-27] MEDS: CEFAZOLIN 2000MG 2,000 MG/15 ML SYR IV SCH ×3 (01:51→20:40)
[2018-10-27] MEDS ORDERED: INSULIN ASPART 100 UNITS/ML 3 ML PEN SC SCH (02:00)
[2018-10-27] MEDS: OXYCODONE/ACETAMINOPHEN 5mg/325mg TAB PO PRN ×3 (03:51→20:18)
[2018-10-27] MEDS: SODIUM CHLORIDE 0.9% 500 ML IV SCH (05:48)
[2018-10-27 07:48] LABS: Mean Corpuscular Hgb Conc 31.9 g/dL (32-36); Mean Platelet Volume 9.9 fL (7.4-10.4); Platelet Count 195 K/uL (130-400)
[2018-10-27] MEDS ORDERED: SODIUM CHLORIDE 0.9% 250 ML IV PRN (08:10)
[2018-10-27 08:12] LABS: Basophils # (auto) 0.04 K/uL (0-0.2); Basophils % (auto) 0.3 %; Eosinophils % (auto) 0.8 %; Hemoglobin 6.7 g/dL (12.0-16.0); Immature Granulocytes # (auto) 0.06 K/uL (0.00-0.02); Immature Granulocytes % (auto) 0.5 %; Lymphocytes # (auto) 1.57 K/uL (1.2-3.4); Lymphocytes % (auto) 13.1 %; Mean Corpuscular Hemoglobin 32.2 pg (25-34); Monocytes % (auto) 9.2 %; Neutrophils % (auto) 76.1 %; RBC Morphology Unremarkable; RDW Coefficient of Variation 18.9 % (11.5-14.5); RDW Standard Deviation 70.4 fL (36.4-46.3); Red Blood Count 2.08 M/uL (4.2-5.4); White Blood Count 11.97 K/uL (4.8-10.8)
[2018-10-27 08:22] LABS: BUN Creatinine Ratio 6.3 (10-20); Calcium 8.3 mg/dl (8.5-10.1); Creatinine Clr Calc Pharmacy 6.8 ml/min; Est GFR (African American) 5.5; Est GFR (Non-African American) 4.8; Potassium 6.9 mmol/L (3.5-5.1)
[2018-10-27] MEDS ORDERED: SODIUM CHLORIDE 0.9% 1000ML 1,000 ML IV PRN (08:27)
[2018-10-27] MEDS ORDERED: MIDODRINE HCL 10 MG TAB PO SCH (09:00)
[2018-10-27] MEDS ORDERED: INSULIN HUMAN NPH SC ONE (09:00)
[2018-10-27] MEDS: METOPROLOL SUCC 25MG EXT REL TAB PO SCH (09:07)
[2018-10-27] MEDS: INSULIN ASPART 100 UNITS/ML 3 ML PEN SC SCH ×4 (09:07→20:19)
[2018-10-27] MEDS: DOCUSATE SODIUM 100 MG CAP PO SCH ×2 (09:08→20:19)
[2018-10-27] MEDS: ASPIRIN 81 MG ECTAB PO SCH (09:09)
[2018-10-27] MEDS: NEPHROCAPS PO SCH (09:09)
[2018-10-27] MEDS: ATORVASTATIN 40 MG TAB PO SCH (09:09)
[2018-10-27] MEDS: SEVELAMER HCL 800 MG TABLET PO SCH ×3 (09:09→17:42)
[2018-10-27] MEDS ORDERED: ASPIRIN 81 MG ECTAB PO SCH (09:24)
[2018-10-27] MEDS ORDERED: [UNRECOGNIZED DRUG - OTHER] SQ SCH ×2 (09:24→21:00)
[2018-10-27] MEDS ORDERED: DOCUSATE SODIUM 100 MG CAP PO SCH ×2 (09:24→21:00)
[2018-10-27] MEDS ORDERED: INSULIN ISOPHANE SQ SCH (09:24)
[2018-10-27] MEDS ORDERED: INSULIN REGULAR PUMP SCH ×2 (09:24→13:15)
[2018-10-27] MEDS ORDERED: MoRPHine SULFATE 4 MG/ML 1 ML CARP\\VIAL IV PRN (09:24)
[2018-10-27] MEDS ORDERED: ATORVASTATIN 40 MG TAB PO SCH (09:24)
[2018-10-27] MEDS ORDERED: SEVELAMER HCL 800 MG TABLET PO SCH ×2 (09:24→17:00)
[2018-10-27] MEDS ORDERED: OXYCODONE/ACETAMINOPHEN 5mg/325mg TAB PO PRN (09:24)
[2018-10-27] MEDS ORDERED: METOPROLOL SUCC 25MG EXT REL TAB PO SCH ×2 (09:24→21:00)
[2018-10-27] MEDS ORDERED: ACETAMINOPHEN 325 MG TAB PO PRN (09:24)
[2018-10-27] MEDS ORDERED: GABAPENTIN 300 MG CAP PO SCH ×2 (09:24→21:00)
[2018-10-27] MEDS ORDERED: NEPHROCAPS PO SCH (09:24)
[2018-10-27] MEDS ORDERED: NITROGLYCERIN SL 0.4 MG/TAB TAB SL PRN ×2 (09:24→13:14)
[2018-10-27] MEDS ORDERED: ONDANSETRON INJ 2 MG/ML 2 ML VIAL IV PRN (09:24)
[2018-10-27] MEDS ORDERED: SODIUM CHLORIDE 0.9% 1000ML 1,000 ML IV SCH (09:45)
--- NOTE | 2018-10-27 09:51 | Anesthesiology Progress Note ---
Date of Service October 27, 2018 Anesthesia Post Procedure Vital Signs Vital Signs: Temp Pulse Pulse Resp BP Pulse Ox 10/27/18 07:19 37.6 C H 96 H 22 90/57 L 92 10/27/18 04:35 37.5 C 10/27/18 03:42 38.7 C H 96 H 16 95/57 L 90 10/26/18 23:05 37.1 C 90 14 101/64 92 10/26/18 20:15 73 120/69 100 10/26/18 19:05 36.5 C 72 16 104/56 L 98 10/26/18 18:05 95/58 L 10/26/18 18:02 85/47 L 10/26/18 17:54 36.5 C 68 16 77/44 L 96 10/26/18 16:59 36.4 C L 62 16 95/60 L 98 10/26/18 16:26 36.3 C L 59 L 16 103/60 96 10/26/18 15:55 36.3 C L 62 16 97/60 L 91 10/26/18 15:40 36.5 C 58 L 15 97/49 L 100 10/26/18 15:30 36.5 C 58 L 16 96/42 L 100 10/26/18 15:20 59 L 13 99/44 L 100 10/26/18 15:10 58 L 14 101/42 L 100 10/26/18 15:00 36.4 C L 58 L 11 L 94/43 L 100 10/26/18 14:50 36.4 C L 59 L 14 91/43 L 100 10/26/18 14:40 36.4 C L 59 L 14 78/42 L 100 10/26/18 14:30 36.4 C L 76 16 89/37 L 100 10/26/18 14:20 36.4 C L 61 22 79/43 L 100 10/26/18 14:10 36.4 C L 64 15 74/43 L 100 10/26/18 14:00 36.4 C L 67 16 95/43 L 100 Pain Intensity Left Leg: Pain Intensity: 10 Notes Mental Status: alert / awake / arousable and participated in evaluation Patient Amnestic to Procedure: Yes Nausea / Vomiting: see Notes below Pain: adequately controlled Airway Patency, RR, SpO2: stable & adequate BP & HR: stable & adequate Hydration State: stable & adequate Anesthetic Complications: no major complications apparent and Pt Satisfied with anesthetic care
[2018-10-27 10:09] LABS: Hemoglobin 6.7 g/dL (12.0-16.0); Mean Corpuscular Hemoglobin 32.7 pg (25-34); Mean Corpuscular Hgb Conc 31.9 g/dL (32-36); Mean Corpuscular Volume 102.4 fL (80-100); Mean Platelet Volume 9.7 fL (7.4-10.4); Platelet Count 185 K/uL (130-400); RDW Standard Deviation 71.2 fL (36.4-46.3); Red Blood Count 2.05 M/uL (4.2-5.4)
--- NOTE | 2018-10-27 10:10 | Pharmacy Report ---
Glycemic Control Consultation - Date of Service October 27, 2018 - Scope Scope: Glycemic Pharmacist consulted by Dr Chambers on 10/26/18 for glycemic control and to write orders per [facility] inpatient glycemic control protocol - Objective Weight: 91.5 kg Accuchecks BSG (last 24hrs): 10/26/18 10/26/18 10/26/18 14:21 17:20 20:48 Glucose POC Glucose 117 H 150 H 186 H 10/27/18 10/27/18 10/27/18 01:49 06:47 07:16 Glucose 189 H POC Glucose 242 H 199 H 10/27/18 08:14 Glucose POC Glucose 230 H Laboratory Data (last 24hrs): 10/27/18 07:16 Potassium 6.9 H* D Carbon Dioxide 23 Anion Gap 12.0 H Creatinine 7.85 H* D Est Cr Clr Drug Dosing 6.8 - Recent Pertinent Medications Outpatient Anti-diabetic Regimen: * Insulin NPH 26 units qam and 22 units qpm + regular insulin sliding scale * A1c = 5.8 % (05/05/18) - this lab may not be reliable due to dialysis- dependency (ESRD) Risk Factors for Insulin Resistance: * Steroids: Dexamethasone 8 mg IV x 1 - given preoperatively on 10/26 * Recent Surgery: Distal revascularization-interval ligation (DRIL) procedure on 10/26 * Diet: T2DM/heart healthy/dialysis renal - Assessment & Plan Assessment & Plan: ASSESSMENT: * Patient with steal syndrome secondary to AV fistula is POD #1 from DRIL procedure * Patient's relevant PMH includes ESRD (HD on MWF), history of CVA in 2014, CAD, hypertension, and hyperlipidemia * Patient given half dose of NPH in the morning yesterday prior to surgery and given 20 units of Lantus overnight to cover for dexamethasone-induced hyperglycemia * Dexamethasone 8 mg IV administered preoperatively * BSGs ranging from 117-242 over past 24 hours * Patient received 35 units of insulin yesterday (33 of which were basal) * Hemoglobin of 6.9 today; transfused 2 units of PRBCs * Patient received HD today PLAN FOR INPATIENT GLYCEMIC CONTROL: * Basal insulin * NPH 26 units this AM * Will not stress home dose based on patient receiving dialysis today * NPH scale BID going forward (15 units if BSG less than 180 mg/dL, or 20 units if BSG of 180 mg/dL or above) * Previous admission data showed that patient was controlled with 15-20 units of NPH BID * Bolus insulin * NovoLog per scale ACHS or Q6hrs while NPO * Goal Range: Low 110 mg/dL - High 140 mg/dL * Correction Factor: 20 mg/dL/unit * Nutritional / Prandial insulin per carb ratio of 1 unit per 8 grams CHO consumed * Please note that the plan above was derived based on current level of insulin resistance and hospital stress. These recommendations are appropriate for inpatient admission only. Plan of care upon discharge will need to be reassessed to avoid potential outpatient hypo/hyperglycemia. Thank you.
[2018-10-27 10:19] LABS: Calcium 8.3 mg/dl (8.5-10.1); Creatinine Clr Calc Pharmacy 6.5 ml/min; Est GFR (African American) 5.2; Est GFR (Non-African American) 4.5; Potassium 6.8 mmol/L (3.5-5.1)
[2018-10-27 10:28] LABS: Basophils # (auto) 0.02 K/uL (0-0.2); Basophils % (auto) 0.2 %; Eosinophils # (auto) 0.11 K/uL (0-0.5); Eosinophils % (auto) 0.8 %; Immature Granulocytes # (auto) 0.06 K/uL (0.00-0.02); Immature Granulocytes % (auto) 0.5 %; Lymphocytes # (auto) 2.68 K/uL (1.2-3.4); Lymphocytes % (auto) 20.2 %; Monocytes # (auto) 1.67 K/uL (0.11-0.59); Monocytes % (auto) 12.6 %; Neutrophils # (auto) 8.76 K/uL (1.4-6.5); Neutrophils % (auto) 65.7 %; RBC Morphology Unremarkable
--- NOTE | 2018-10-27 11:40 | Ultrasound Report ---
US hemodialysis access CLINICAL HISTORY: no bruit or thrill confirmed by two RNs. Assess patency of upper extremity fistula prior to dialysis. COMPARISON STUDY: Left upper renal ultrasound 08/29/2018. FINDINGS: The left upper extremity fistula is patent. Normal velocities and waveforms. There is a lar ge complex collection within the upper arm which partially surrounds the fistula. This favors a hemat casi. There is no flow identified within this collection to suggest a pseudoaneurysm. IMPRESSION: 1. A left upper extremity fistula appears patent. 2. Large complex collection within the upper arm which partially surrounds a fistula. This favors a h ematoma. Electronically signed by: Manny Reza M.D. 10/27/2018 11:38 AM
[2018-10-27] MEDS: HYDROmorphone INJ 0.5 MG/0.5 ML SYR IV PRN ×3 (12:16→23:27)
[2018-10-27] MEDS ORDERED: NON-FORMULARY MEDICATION (Acetaminophen [Tylenol] 650 MG) PO PRN (13:14)
[2018-10-27] MEDS ORDERED: MICONAZOLE NITRATE POWDER 43 GM TOP SCH (14:00)
--- NOTE | 2018-10-27 14:17 | Surgery Progress Note ---
Date of Service October 27, 2018 Assessment & Plan (1) Steal syndrome as complication of dialysis access: Patient is doing well postoperatively from a DRIL procedure. She does have mild to moderate swelling of the left arm but well perfused hand. (2) Hyperkalemia: She is found to have an elevated potassium this morning. She will undergo dialysis this a.m. for her hyperkalemia. (3) Postoperative anemia due to acute blood loss: Patient usually runs of her hemoglobin in the nines. She was found to be 6.9 this morning and she did have some hypotension during the night. We will transfuse her with 2 units while on dialysis today. If she does well we may be able to discharge her tomorrow. Subjective Patient is awake and alert. She is complaining of some discomfort in the left arm. Her left hand does feel better than preop. Physical Exam Physical Exam: Patient is awake and oriented x3. Dressings of her left arm are intact with some moderate bloodstained. The left arm is mildly swollen. She does have a good palpable radial artery pulse and good capillary refill of the fingers. She is able to squeeze her hand. She does have feeling in her hand. Constitutional: WD/WN, vitals as above Results & Data Vital Signs (Past 12 Hours) Vital Signs Temp Pulse Pulse Pulse Resp BP BP 10/27/18 13:15 91 H 126/52 L 10/27/18 13:00 36.8 C 91 H 16 127/47 L 10/27/18 12:48 36.8 C 92 H 16 135/47 L 10/27/18 12:45 92 H 135/47 L 10/27/18 12:30 92 H 124/47 L 10/27/18 12:15 84 91/47 L 10/27/18 12:00 37.1 C 89 16 125/50 L 10/27/18 11:40 91 H 143/49 H 10/27/18 11:26 37.1 C 92 H 10/27/18 10:10 37.1 C 91 H 20 115/57 L 10/27/18 07:19 37.6 C H 96 H 22 90/57 L 10/27/18 04:35 37.5 C 10/27/18 03:42 38.7 C H 96 H 16 95/57 L Pulse Ox 10/27/18 13:15 10/27/18 13:00 98 10/27/18 12:48 10/27/18 12:45 10/27/18 12:30 10/27/18 12:15 10/27/18 12:00 98 10/27/18 11:40 10/27/18 11:26 10/27/18 10:10 97 10/27/18 07:19 92 10/27/18 04:35 10/27/18 03:42 90
[2018-10-27] MEDS: MICONAZOLE NITRATE POWDER 43 GM TOP SCH (20:18)
[2018-10-27] MEDS: GABAPENTIN 300 MG CAP PO SCH (20:19)
[2018-10-27] MEDS ORDERED: INSULIN HUMAN NPH SC SCH ×2 (21:00)
--- NOTE | 2018-10-27 21:03 | Nephrology Consultation ---
Date of Consultation October 27, 2018 Assessment & Plan (1) ESRD (end stage renal disease) on dialysis: Patient is on HD MWF using a left UA AVF. She is s/p DRIL procedure for left steal syndrome. She tolerated HD today for 4hrs, 1 k bath for half the treatment and 2k for the rest of the treatment. K midway through was 3.6. Next HD thursday (2) Postoperative anemia due to acute blood loss: Patient has chronic anemia of renal failure. This was aggravated by bleeding intra op. She got a unit of blood with HD. Will continue Epogen with HD (3) Hyperkalemia: Due to AVF dysfunction. She was dialysed on a 1k bath. She should be on a renal diet. Repeat K in the morning. (4) Hypotension: Patient hypotensive today and required midodrine pre HD. BP better now. History of Present Illness Reason for Consultation: ESRD Requesting Physician: Gregory Chambers MD Attending Physician: Gregory Chambers MD History of Present Illness his is a 67-year-old female with a history of diastolic CHF, coronary disease, diabetes, depression and ESRD on dialysis Thursday was admitted on 10/26/09 with left arm steal syndrome. She has a left UA AVF created in 2017. AVF has been working well but recently she developed arm pain and swelling She underwent DRIL procedure yesterday. She feels better. Complain of fatigue but no SOB. has mild arm pain due to surgery but no tingling. SHe was found to have severe hyperkalemia of 6.9 and severe anemia with Hb 6.7 this morning. Urgent HD was arranged. I initially saw the patient in the morning in her room. I later returned and saw her while on the dialysis procedure in the early afternoon. She tolerated HD well. We checked K mid way in the treatment which had improved to 3.6 Allergies Allergy/AdvReac Type Severity Reaction Status Date / Time codeine Allergy Intermediate hives Verified 10/26/18 07:10 pioglitazone Allergy Intermediate Rash/Fluid Verified 10/26/18 07:10 retention morphine Allergy Mild HIVES Verified 10/26/18 07:10 Home Medications Home Medications Medication Instructions Recorded Confirmed Type Novolin N NPH U-100 Insulin 22 unit SUBCUT PM 10/29/17 10/26/18 History Novolin N NPH U-100 Insulin 26 unit SUBCUT QAM 10/29/17 10/26/18 History aspirin 81 mg PO QAM 10/29/17 10/26/18 History atorvastatin 40 mg PO QAM 10/29/17 10/26/18 History cholecalciferol (vitamin D3) 5,000 unit PO QAM 10/29/17 10/26/18 History [Vitamin D3] clopidogrel [Plavix] 75 mg PO QAM 10/29/17 10/26/18 History gabapentin 300 mg PO QPM 10/29/17 10/26/18 History magnesium oxide 400 mg PO DAILY 10/29/17 10/26/18 History nitroglycerin [Nitrostat] 0.4 mg SUBLINGUAL UD PRN 10/29/17 10/26/18 History ranitidine HCl 150 mg PO QAM 10/29/17 10/26/18 History acetaminophen [Tylenol] 650 mg PO QID PRN 05/04/18 10/26/18 History sevelamer carbonate [Renvela] 800 mg PO TIDM 05/04/18 10/26/18 History Nephrocaps 1 cap PO QAM 05/27/18 10/26/18 History docusate sodium 100 mg PO BID 05/27/18 10/26/18 History insulin regular human 1 sliding scale dose SUBCUT 08/29/18 10/26/18 History USEASDIRECTD metoprolol succinate [Toprol XL] 25 mg PO QPM 08/29/18 10/26/18 History miconazole nitrate 1 applic TOPICAL TID 08/29/18 10/26/18 History Patient History Family History Father Stomach cancer Other Coronary heart disease Diabetes Hypertension Social History Preferred Language: [place] Citizen Communication Ability: Effective 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 Beliefs That Will Affect Care: None marital status: Current Living Situation: Spouse Current Living Situation Comment: Patient currently resides at [facility], has who [facility] Other Information That Helps Us Care for You: No Feels Safe at Home: Yes Safety Concerns: Feels Safe At This Time Smoking Status: Never smoker Do You Dip or Chew Tobacco: No ; Second Hand Exposure: Yes (as a child) ; Hx Alcohol Use: No Hx Substance Use: No Review of Systems Review of Systems: All systems reviewed & are unremarkable except as noted in HPI & below Physical Exam Physical Exam: General exam: Appears comfortable, no acute distress HEENT: Pupils are equal and reactive to light Neck: No JVD, neck is supple trachea is midline Respiratory system: Clear breath sounds bilaterally. Gastrointestinal: Abdomen is soft, non distended, non tender, bowel sounds are present CVS: Regular rate and rhythm. No murmurs, rubs or gallops Musculoskeletal: No joint or muscle tenderness Extremities: Non tender, no edema, peripheral pulses are present Neuro: Oriented, no tremors, no focal neurological deficits Skin: No rashes Access: left UA AVF with bruit Results & Data Vital Signs (Past 12 Hours) Vital Signs Temp Pulse Pulse Pulse Pulse Resp BP 10/27/18 20:01 37.4 C 88 18 10/27/18 16:10 37.0 C 92 H 10/27/18 15:20 92 H 123/56 L 10/27/18 15:00 93 H 108/58 L 10/27/18 14:40 93 H 109/48 L 10/27/18 14:30 92 H 133/25 L 10/27/18 14:15 90 155/63 H 10/27/18 14:00 37.0 C 94 H 16 155/56 H 10/27/18 13:45 94 H 154/59 H 10/27/18 13:30 93 H 127/61 10/27/18 13:15 91 H 126/52 L 10/27/18 13:00 36.8 C 91 H 16 127/47 L 10/27/18 12:48 36.8 C 92 H 16 135/47 L 10/27/18 12:45 92 H 135/47 L 10/27/18 12:30 92 H 124/47 L 10/27/18 12:15 84 91/47 L 10/27/18 12:00 37.1 C 89 16 125/50 L 10/27/18 11:40 91 H 143/49 H 10/27/18 11:26 37.1 C 92 H 10/27/18 10:10 37.1 C 91 H 20 BP Pulse Ox 10/27/18 20:01 128/66 98 10/27/18 16:10 143/50 H 10/27/18 15:20 10/27/18 15:00 10/27/18 14:40 10/27/18 14:30 10/27/18 14:15 10/27/18 14:00 10/27/18 13:45 10/27/18 13:30 10/27/18 13:15 10/27/18 13:00 98 10/27/18 12:48 10/27/18 12:45 10/27/18 12:30 10/27/18 12:15 10/27/18 12:00 98 10/27/18 11:40 10/27/18 11:26 10/27/18 10:10 115/57 L 97 Laboratory Results Laboratory Results - last 24 hr 10/26/18 10/26/18 10/27/18 20:48 23:37 01:49 WBC RBC Hgb Hct MCV MCH MCHC RDW Std Deviation RDW Coeff of Cori Plt Count MPV Immature Gran % (Auto) Neut % (Auto) Lymph % (Auto) [place] % (Auto) Eos % (Auto) Baso % (Auto) Immature Gran # (Auto) Neut # (Auto) Lymph # (Auto) [place] # (Auto) Eos # (Auto) Baso # (Auto) RBC Morphology Sodium Potassium Chloride Carbon Dioxide Anion Gap BUN Creatinine Est Cr Clr Drug Dosing Est GFR ( Amer) Est GFR (Non-Af Amer) BUN/Creatinine Ratio Glucose POC Glucose 186 H 242 H Calcium Nasal Screen MRSA (PCR) Negative Blood Type Antibody Screen Crossmatch 10/27/18 10/27/18 10/27/18 06:47 07:16 07:16 WBC 11.97 H RBC 2.08 L Hgb 6.7 L* Hct 21.0 L MCV 101.0 H MCH 32.2 MCHC 31.9 L RDW Std Deviation 70.4 H RDW Coeff of Cori 18.9 H Plt Count 195 MPV 9.9 Immature Gran % (Auto) 0.5 Neut % (Auto) 76.1 Lymph % (Auto) 13.1 [place] % (Auto) 9.2 Eos % (Auto) 0.8 Baso % (Auto) 0.3 Immature Gran # (Auto) 0.06 H Neut # (Auto) 9.10 H Lymph # (Auto) 1.57 [place] # (Auto) 1.10 H Eos # (Auto) 0.10 Baso # (Auto) 0.04 RBC Morphology Unremarkable Sodium 136 Potassium 6.9 H* D Chloride 100 Carbon Dioxide 23 Anion Gap 12.0 H BUN 49 H Creatinine 7.85 H* D Est Cr Clr Drug Dosing 6.8 Est GFR ( Amer) 5.5 Est GFR (Non-Af Amer) 4.8 BUN/Creatinine Ratio 6.3 L Glucose 189 H POC Glucose 199 H Calcium 8.3 L Nasal Screen MRSA (PCR) Blood Type Antibody Screen Crossmatch 10/27/18 10/27/18 10/27/18 08:14 08:49 09:34 WBC RBC Hgb Hct MCV MCH MCHC RDW Std Deviation RDW Coeff of Cori Plt Count MPV Immature Gran % (Auto) Neut % (Auto) Lymph % (Auto) [place] % (Auto) Eos % (Auto) Baso % (Auto) Immature Gran # (Auto) Neut # (Auto) Lymph # (Auto) [place] # (Auto) Eos # (Auto) Baso # (Auto) RBC Morphology Sodium 136 Potassium 6.8 H* Chloride 99 Carbon Dioxide 23 Anion Gap 14.0 H BUN 49 H Creatinine 8.20 H* D Est Cr Clr Drug Dosing 6.5 Est GFR ( Amer) 5.2 Est GFR (Non-Af Amer) 4.5 BUN/Creatinine Ratio 6.0 L Glucose 199 H POC Glucose 230 H Calcium 8.3 L Nasal Screen MRSA (PCR) Blood Type O Positive Antibody Screen NEGATIVE Crossmatch See Detail 10/27/18 10/27/18 10/27/18 09:34 13:45 14:57 WBC 13.30 H RBC 2.05 L Hgb 6.7 L* Hct 21.0 L MCV 102.4 H MCH 32.7 MCHC 31.9 L RDW Std Deviation 71.2 H RDW Coeff of Cori 19.0 H Plt Count 185 MPV 9.7 Immature Gran % (Auto) 0.5 Neut % (Auto) 65.7 Lymph % (Auto) 20.2 [place] % (Auto) 12.6 Eos % (Auto) 0.8 Baso % (Auto) 0.2 Immature Gran # (Auto) 0.06 H Neut # (Auto) 8.76 H Lymph # (Auto) 2.68 [place] # (Auto) 1.67 H Eos # (Auto) 0.11 Baso # (Auto) 0.02 RBC Morphology Unremarkable Sodium Potassium 3.6 D Chloride Carbon Dioxide Anion Gap BUN Creatinine Est Cr Clr Drug Dosing Est GFR ( Amer) Est GFR (Non-Af Amer) BUN/Creatinine Ratio Glucose POC Glucose 145 H Calcium Nasal Screen MRSA (PCR) Blood Type Antibody Screen Crossmatch 10/27/18 10/27/18 17:43 19:22 WBC RBC Hgb Hct MCV MCH MCHC RDW Std Deviation RDW Coeff of Cori Plt Count MPV Immature Gran % (Auto) Neut % (Auto) Lymph % (Auto) [place] % (Auto) Eos % (Auto) Baso % (Auto) Immature Gran # (Auto) Neut # (Auto) Lymph # (Auto) [place] # (Auto) Eos # (Auto) Baso # (Auto) RBC Morphology Sodium Potassium Chloride Carbon Dioxide Anion Gap BUN Creatinine Est Cr Clr Drug Dosing Est GFR ( Amer) Est GFR (Non-Af Amer) BUN/Creatinine Ratio Glucose POC Glucose 186 H 180 H Calcium Nasal Screen MRSA (PCR) Blood Type Antibody Screen Crossmatch (1) Hypotension Hypotension type: unspecified hypotension type Qualified Code(s): I95.9 - Hypotension, unspecified
[2018-10-28] MEDS: OXYCODONE/ACETAMINOPHEN 5mg/325mg TAB PO PRN ×3 (03:37→21:36)
[2018-10-28 07:32] LABS: Hematocrit (blood only) 27.5 % (37-47); Hemoglobin 8.9 g/dL (12.0-16.0); Mean Corpuscular Hemoglobin 31.1 pg (25-34); Mean Corpuscular Hgb Conc 32.4 g/dL (32-36); Mean Corpuscular Volume 96.2 fL (80-100); Mean Platelet Volume 9.5 fL (7.4-10.4); Platelet Count 133 K/uL (130-400); RDW Coefficient of Variation 20.6 % (11.5-14.5); RDW Standard Deviation 70.7 fL (36.4-46.3); Red Blood Count 2.86 M/uL (4.2-5.4); White Blood Count 10.56 K/uL (4.8-10.8)
[2018-10-28 07:33] LABS: Anisocytosis Present; Basophils # (auto) 0.02 K/uL (0-0.2); Basophils % (auto) 0.2 %; Eosinophils # (auto) 0.44 K/uL (0-0.5); Eosinophils % (auto) 4.2 %; Immature Granulocytes # (auto) 0.05 K/uL (0.00-0.02); Immature Granulocytes % (auto) 0.5 %; Lymphocytes # (auto) 1.58 K/uL (1.2-3.4); Monocytes # (auto) 1.09 K/uL (0.11-0.59); Monocytes % (auto) 10.3 %; Neutrophils # (auto) 7.38 K/uL (1.4-6.5); Neutrophils % (auto) 69.8 %; Polychromasia 1+
[2018-10-28 07:46] LABS: BUN Creatinine Ratio 5.1 (10-20); Calcium 8.8 mg/dl (8.5-10.1); Creatinine Clr Calc Pharmacy 9.2 ml/min; Est GFR (African American) 7.6; Est GFR (Non-African American) 6.5; Potassium 4.5 mmol/L (3.5-5.1)
[2018-10-28] MEDS: NEPHROCAPS PO SCH (08:42)
[2018-10-28] MEDS: ASPIRIN 81 MG ECTAB PO SCH (08:42)
[2018-10-28] MEDS: ATORVASTATIN 40 MG TAB PO SCH (08:43)
[2018-10-28] MEDS: MAGNESIUM OXIDE 400 MG TAB PO SCH ×2 (08:44→08:47)
[2018-10-28] MEDS: MICONAZOLE NITRATE POWDER 43 GM TOP SCH ×6 (08:45→21:35)
[2018-10-28] MEDS: CHOLECALCIFEROL 1,000 UNITS TAB PO SCH ×2 (08:45→08:47)
[2018-10-28] MEDS: CLOPIDOGREL BISULFATE 75 MG TAB PO SCH ×2 (08:45→08:46)
[2018-10-28] MEDS: METOPROLOL SUCC 25MG EXT REL TAB PO SCH (08:46)
[2018-10-28] MEDS: DOCUSATE SODIUM 100 MG CAP PO SCH ×2 (08:46→21:35)
[2018-10-28] MEDS: SEVELAMER HCL 800 MG TABLET PO SCH ×3 (08:48→16:48)
[2018-10-28] MEDS: INSULIN ASPART 100 UNITS/ML 3 ML PEN SC SCH ×4 (08:49→21:37)
[2018-10-28] MEDS ORDERED: INSULIN ISOPHANE SQ SCH (09:00)
[2018-10-28] MEDS ORDERED: INSULIN HUMAN NPH SC SCH (09:00)
[2018-10-28] MEDS ORDERED: MAGNESIUM OXIDE 400 MG TAB PO SCH (09:00)
[2018-10-28] MEDS ORDERED: CLOPIDOGREL BISULFATE 75 MG TAB PO SCH (09:00)
[2018-10-28] MEDS ORDERED: NON-FORMULARY MEDICATION (Cholecalciferol (Vitamin D3) [Vitamin D3] 5,000 UNITS) PO SCH (09:00)
[2018-10-28] MEDS ORDERED: NEPHROCAPS PO SCH (09:00)
[2018-10-28] MEDS ORDERED: ASPIRIN 81 MG ECTAB PO SCH (09:00)
[2018-10-28] MEDS ORDERED: ATORVASTATIN 40 MG TAB PO SCH (09:00)
--- NOTE | 2018-10-28 09:14 | Surgery Progress Note ---
Date of Service October 28, 2018 Assessment & Plan (1) Steal syndrome as complication of dialysis access: Graft working well. Increased disorientation today. Will consult Neurology for their input. Subjective Patient not oriented today. Appears to have more confusion Physical Exam Physical Exam: Incisions dry and clean. Good cap refill of left hand. Graft patent. Left hand grasp unchanged from pre op Constitutional: WD/WN, vitals as above Results & Data Vital Signs (Past 12 Hours) Vital Signs Temp Pulse Pulse Pulse Resp BP Pulse Ox 10/28/18 07:55 82 10/28/18 07:10 36.7 C 80 20 149/77 H 97 10/28/18 04:00 37.0 C 85 19 139/63 94 10/27/18 23:29 36.9 C 93 H 21 133/69 92
--- NOTE | 2018-10-28 10:15 | Nephrology Progress Note ---
Date of Service October 28, 2018 Assessment & Plan (1) ESRD (end stage renal disease) on dialysis: Patient is on HD MWF using a left UA AVF. She is s/p DRIL procedure for left steal syndrome. She tolerated HD yesterday for 4hrs, 1 k bath for half the treatment and 2k for the rest of the treatment. K midway through was 3.6. Next HD thursday for 4hrs target UF 3 litres (2) Postoperative anemia due to acute blood loss: Patient has chronic anemia of renal failure. This was aggravated by bleeding intra op. She got a unit of blood with HD yesterday. Hb 8.9 today. Will continue Epogen with HD (3) Hyperkalemia: Due to AVF dysfunction. K is 4.5. Improved with HD. Continue renal diet (4) Hypotension: Patient hypotensive yesterday and required midodrine pre HD. BP better now. Subjective Seen in f/u for ESRD. No SOB. has poor appetite. Tolerated HD well last night. No arm pain Review of Systems Review of Systems: All systems reviewed & are unremarkable except as noted in HPI & below Physical Exam Physical Exam: General exam: Appears comfortable, no acute distress HEENT: Pupils are equal and reactive to light Neck: No JVD, neck is supple trachea is midline Respiratory system: Clear breath sounds bilaterally. Gastrointestinal: Abdomen is soft, non distended, non tender, bowel sounds are present CVS: Regular rate and rhythm. No murmurs, rubs or gallops Musculoskeletal: No joint or muscle tenderness Extremities: Non tender, no edema, peripheral pulses are present Neuro: Oriented, no tremors, no focal neurological deficits Skin: No rashes Access: Left AVF with good bruit Results & Data Vital Signs (Past 12 Hours) Vital Signs Temp Pulse Pulse Pulse Resp BP Pulse Ox 10/28/18 07:55 82 10/28/18 07:10 36.7 C 80 20 149/77 H 97 10/28/18 04:00 37.0 C 85 19 139/63 94 10/27/18 23:29 36.9 C 93 H 21 133/69 92 Laboratory Results Laboratory Results - last 24 hr 10/27/18 10/27/18 10/27/18 08:49 09:34 09:34 WBC RBC Hgb Hct MCV MCH MCHC RDW Std Deviation RDW Coeff of Cori Plt Count MPV Immature Gran % (Auto) 0.5 Neut % (Auto) 65.7 Lymph % (Auto) 20.2 [place] % (Auto) 12.6 Eos % (Auto) 0.8 Baso % (Auto) 0.2 Immature Gran # (Auto) 0.06 H Neut # (Auto) 8.76 H Lymph # (Auto) 2.68 [place] # (Auto) 1.67 H Eos # (Auto) 0.11 Baso # (Auto) 0.02 RBC Morphology Unremarkable Polychromasia Anisocytosis Sodium 136 Potassium 6.8 H* Chloride 99 Carbon Dioxide 23 Anion Gap 14.0 H BUN 49 H Creatinine 8.20 H* D Est Cr Clr Drug Dosing 6.5 Est GFR ( Amer) 5.2 Est GFR (Non-Af Amer) 4.5 BUN/Creatinine Ratio 6.0 L Glucose 199 H POC Glucose Calcium 8.3 L Blood Type O Positive Antibody Screen NEGATIVE Crossmatch See Detail 10/27/18 10/27/18 10/27/18 13:45 14:57 17:43 WBC RBC Hgb Hct MCV MCH MCHC RDW Std Deviation RDW Coeff of Cori Plt Count MPV Immature Gran % (Auto) Neut % (Auto) Lymph % (Auto) [place] % (Auto) Eos % (Auto) Baso % (Auto) Immature Gran # (Auto) Neut # (Auto) Lymph # (Auto) [place] # (Auto) Eos # (Auto) Baso # (Auto) RBC Morphology Polychromasia Anisocytosis Sodium Potassium 3.6 D Chloride Carbon Dioxide Anion Gap BUN Creatinine Est Cr Clr Drug Dosing Est GFR ( Amer) Est GFR (Non-Af Amer) BUN/Creatinine Ratio Glucose POC Glucose 145 H 186 H Calcium Blood Type Antibody Screen Crossmatch 10/27/18 10/28/18 10/28/18 19:22 00:00 05:07 WBC RBC Hgb Hct MCV MCH MCHC RDW Std Deviation RDW Coeff of Cori Plt Count MPV Immature Gran % (Auto) Neut % (Auto) Lymph % (Auto) [place] % (Auto) Eos % (Auto) Baso % (Auto) Immature Gran # (Auto) Neut # (Auto) Lymph # (Auto) [place] # (Auto) Eos # (Auto) Baso # (Auto) RBC Morphology Polychromasia Anisocytosis Sodium Potassium Chloride Carbon Dioxide Anion Gap BUN Creatinine Est Cr Clr Drug Dosing Est GFR ( Amer) Est GFR (Non-Af Amer) BUN/Creatinine Ratio Glucose POC Glucose 180 H 208 H 195 H Calcium Blood Type Antibody Screen Crossmatch 10/28/18 10/28/18 10/28/18 06:39 06:39 07:33 WBC 10.56 RBC 2.86 L Hgb 8.9 L Hct 27.5 L MCV 96.2 D MCH 31.1 MCHC 32.4 RDW Std Deviation 70.7 H RDW Coeff of Cori 20.6 H Plt Count 133 MPV 9.5 Immature Gran % (Auto) 0.5 Neut % (Auto) 69.8 Lymph % (Auto) 15.0 [place] % (Auto) 10.3 Eos % (Auto) 4.2 Baso % (Auto) 0.2 Immature Gran # (Auto) 0.05 H Neut # (Auto) 7.38 H Lymph # (Auto) 1.58 [place] # (Auto) 1.09 H Eos # (Auto) 0.44 Baso # (Auto) 0.02 RBC Morphology Polychromasia 1+ Anisocytosis Present Sodium 134 L Potassium 4.5 D Chloride 93 L Carbon Dioxide 31 Anion Gap 9.0 BUN 31 H Creatinine 6.03 H* D Est Cr Clr Drug Dosing 9.2 Est GFR ( Amer) 7.6 Est GFR (Non-Af Amer) 6.5 BUN/Creatinine Ratio 5.1 L Glucose 202 H POC Glucose 191 H Calcium 8.8 Blood Type Antibody Screen Crossmatch (1) Hypotension Hypotension type: unspecified hypotension type Qualified Code(s): I95.9 - Hypotension, unspecified
--- NOTE | 2018-10-28 13:59 | Neurology Consultation ---
Date of Consultation October 28, 2018 Assessment & Plan (1) Acute metabolic encephalopathy: 1. encephalopathy - likely driven by metabiotic issue due to need for emergent dialysis 2. reports from nursing is improved from yesterday 3. limit narcotic use for pain management 4. CT head MRI brain would be more specific for stroke if able to tolerate- will not move left arm or leg but may be due to pain 5. nephrology for dialysis timing 6. will continue to follow for resolve of encephalopathy 7. EEG - ordered to r/o seizure focus Supervising Physician Co-Signing Physician Notes I have seen and discussed above patient with Dr Vincenzo Izaguirre, neurology I have seen this woman today discussed the above case with JONNIE Lo and reviewed her chart. She currently has what looks like a generalized en cephalopathy of nonfocal type but unfortunately has problems moving her left arm and leg which may be totally explicable on the fact that she is had surgical procedures done on both extremities. She is also had delay of her dialysis, had hyperkalemia and anemia and had operative intervention and received narcotic analgesics which may not have cleared her system Unfortunately now she is dazed and confused will only offer spontaneous statements of "okay" but then will follow few commands albeit very simple ones of raising her hands but cannot hold up 2 fingers or hold any conversation unlike the status described above by Ashley Zimmerman In light of the variability of her mental status I think we are obligated to do an EEG just to be sure this is not a case of nonconvulsive status epilepticus and we also unfortunately need to do some form of imaging study to be sure there is not a vascular event which could easily occur in a woman with all these vascular. Had an EEG and a noncontrast CT of the head have been ordered and if there is any question on the latter we will probably go ahead with a noncontrast MRI but for now we will continue to observe her await the results of the present studies and offer no further therapeutic suggestions until we have more time to observe her in hopes that some of the metabolic issues will clear Vincenzo Izaguirre MD History of Present Illness Reason for Consultation: disorientation Requesting Physician: Gregory Chambers MD Attending Physician: Gregory Chambers MD History of Present Illness Sepideh is a 68 year old female who has a PMH ESRD on HD on MWF, CAD, DM II, diastolic CHF, HTN, h/o CVA, chronic anemia, interstitial lung disease, KUSHAL, GERD, RA with left brachiocephalic AV fistula which was placed in 2017 and bein g used for dialysis. She has chronic weakness and numbness in her left hand with occasional pain. She has carpal tunnel syndrome as well as a component of neuropathy in that left hand. Two weeks ago she had a sudden onset of swelling in her left hand with a little bit on her forearm. She went to her local emergency room where they evaluated her. There was swelling that she previously had when going to the emergency room has resolved. She did have an Eliecer wrap on her hand from the emergency room which was only on for a few days. She has chronic inability to straighten out her left fingers for a number of years. She was brought in for revision of her fistula and needed emergent dialysis due to potassium > 6.0. She also had revision of her fistula and was given Dilaudid for pain control. Currently she is resting in bed but is lethargic but responsive to voice commend. When asked who she is doing she states not good. denies CP, SOB, abdominal pain, N, V. Allergies Allergy/AdvReac Type Severity Reaction Status Date / Time codeine Allergy Intermediate hives Verified 10/26/18 07:10 pioglitazone Allergy Intermediate Rash/Fluid Verified 10/26/18 07:10 retention morphine Allergy Mild HIVES Verified 10/26/18 07:10 Home Medications Home Medications Medication Instructions Recorded Confirmed Type Novolin N NPH U-100 Insulin 22 unit SUBCUT PM 10/29/17 10/26/18 History Novolin N NPH U-100 Insulin 26 unit SUBCUT QAM 10/29/17 10/26/18 History aspirin 81 mg PO QAM 10/29/17 10/26/18 History atorvastatin 40 mg PO QAM 10/29/17 10/26/18 History cholecalciferol (vitamin D3) 5,000 unit PO QAM 10/29/17 10/26/18 History [Vitamin D3] clopidogrel [Plavix] 75 mg PO QAM 10/29/17 10/26/18 History gabapentin 300 mg PO QPM 10/29/17 10/26/18 History magnesium oxide 400 mg PO DAILY 10/29/17 10/26/18 History nitroglycerin [Nitrostat] 0.4 mg SUBLINGUAL UD PRN 10/29/17 10/26/18 History ranitidine HCl 150 mg PO QAM 10/29/17 10/26/18 History acetaminophen [Tylenol] 650 mg PO QID PRN 05/04/18 10/26/18 History sevelamer carbonate [Renvela] 800 mg PO TIDM 05/04/18 10/26/18 History Nephrocaps 1 cap PO QAM 05/27/18 10/26/18 History docusate sodium 100 mg PO BID 05/27/18 10/26/18 History insulin regular human 1 sliding scale dose SUBCUT 08/29/18 10/26/18 History USEASDIRECTD metoprolol succinate [Toprol XL] 25 mg PO QPM 08/29/18 10/26/18 History miconazole nitrate 1 applic TOPICAL TID 08/29/18 10/26/18 History Patient History Family History Father Stomach cancer Other Coronary heart disease Diabetes Hypertension Social History Preferred Language: Maltese Communication Ability: Effective Sanitizer Required: No Beliefs That Will Affect Care: None marital status: Current Living Situation: Spouse Current Living Situation Comment: Patient currently resides at [facility], has who lives at their [facility] Other Information That Helps Us Care for You: No Feels Safe at Home: Yes Safety Concerns: Feels Safe At This Time Smoking Status: Never smoker Do You Dip or Chew Tobacco: No ; Second Hand Exposure: Yes (as a child) ; Hx Alcohol Use: No Hx Substance Use: No Physical Exam Physical Exam: Physical Exam: Constitutional: appearance over nourished, ill appearing Ears, Nose, Mouth and Throat: mucous membranes moist, eyes edema around eyes Cardiovascular: normal S-1 and S-2 and regular rate and rhythm Respiratory: clear to auscultation (CTA) Musculoskeletal: moderate edema and decreased distal pulses Skin: no stigmata of neurocutaneous disease noted and normal and intact Eyes: pupils miotic NEUROLOGIC EXAMINATION: Mental status: Alert and lethargic Oriented to self and hospital but does not know the year although says 20..something Oriented to person Speech slow and deliberate only one word answers Cranial Nerves no obvious facial droop Reflexes: Deep tendon reflexes were symmetrical decreased Sensory: intact for light touch does not respond to vibration Coordination: unable to assess Gait/Stance: Posture lying in bed Motor: won't cooperate for exam Strength: squeezes with right hand but no left wiggles toes on right not on left Results & Data Vital Signs (Past 12 Hours) Vital Signs Temp Pulse Pulse Pulse Resp BP Pulse Ox 10/28/18 12:13 37.0 C 80 19 146/68 H 100 10/28/18 07:55 82 10/28/18 07:10 36.7 C 80 20 149/77 H 97 10/28/18 04:00 37.0 C 85 19 139/63 94 Laboratory Results Abnormal lab results 10/27/18 10/27/18 10/27/18 Range/Units 14:57 17:43 19:22 RBC (4.2-5.4) M/uL Hgb (12.0-16.0) g/dL Hct (37-47) % RDW Std Deviation (36.4-46.3) fL RDW Coeff of Cori (11.5-14.5) % Immature Gran # (Auto) (0.00-0.02) K/uL Neut # (Auto) (1.4-6.5) K/uL Denali # (Auto) (0.11-0.59) K/uL Sodium (136-145) mmol/L Chloride (98-107) mmol/L BUN (7-18) mg/dl Creatinine (0.6-1.2) mg/dl BUN/Creatinine Ratio (10-20) Glucose (70-99) mg/dl POC Glucose 145 H 186 H 180 H (70-99) 10/28/18 10/28/18 10/28/18 Range/Units 00:00 05:07 06:39 RBC 2.86 L (4.2-5.4) M/uL Hgb 8.9 L (12.0-16.0) g/dL Hct 27.5 L (37-47) % RDW Std Deviation 70.7 H (36.4-46.3) fL RDW Coeff of Cori 20.6 H (11.5-14.5) % Immature Gran # (Auto) 0.05 H (0.00-0.02) K/uL Neut # (Auto) 7.38 H (1.4-6.5) K/uL Denali # (Auto) 1.09 H (0.11-0.59) K/uL Sodium (136-145) mmol/L Chloride (98-107) mmol/L BUN (7-18) mg/dl Creatinine (0.6-1.2) mg/dl BUN/Creatinine Ratio (10-20) Glucose (70-99) mg/dl POC Glucose 208 H 195 H (70-99) 10/28/18 10/28/18 10/28/18 Range/Units 06:39 07:33 11:31 RBC (4.2-5.4) M/uL Hgb (12.0-16.0) g/dL Hct (37-47) % RDW Std Deviation (36.4-46.3) fL RDW Coeff of Cori (11.5-14.5) % Immature Gran # (Auto) (0.00-0.02) K/uL Neut # (Auto) (1.4-6.5) K/uL Denali # (Auto) (0.11-0.59) K/uL Sodium 134 L (136-145) mmol/L Chloride 93 L (98-107) mmol/L BUN 31 H (7-18) mg/dl Creatinine 6.03 H* D (0.6-1.2) mg/dl BUN/Creatinine Ratio 5.1 L (10-20) Glucose 202 H (70-99) mg/dl POC Glucose 191 H 175 H (70-99) Diagnostic Findings duplex us hemodialysis- A left upper extremity fistula appears patent. Large complex collection within the upper arm which partially surrounds a fistula. This favors a hematoma.
--- NOTE | 2018-10-28 16:02 | CT Scan Report ---
HEAD CT NONCONTRAST CT DOSE: 537.48 mGy.cm HISTORY: Stroke symptoms. r/o stroke TECHNIQUE: Multiaxial CT images of the head were performed without the use of intravenous contrast. A utomated exposure control was utilized for this study. A dose lowering technique was utilized adheri ng to the principles of ALARA. Comparison: Head CT 05/08/2018. Findings: Small retention cyst within the left maxillary sinus and small fluid levels within the sphe noid sinuses, unchanged. Mild motion artifact. The calvarium and skull base are intact. There is no m ass, hematoma, midline shift, acute infarct. White matter hypodensity is nonspecific but suggestive o f microvascular ischemic change. The ventricles and sulci demonstrate mild age-related involutional c hanges. Old lacunar infarcts seen within the right basal ganglia. There is also an old small lacunar infarct within the left cerebellar hemisphere, unchanged. Old small right occipital lobe infarct, unc hanged. Impression: No significant change compared to the prior study. No acute intracranial abnormality. Old infarcts as described above. Electronically signed by: Manny Reza M.D. 10/28/2018 4:01 PM
[2018-10-28] MEDS: GABAPENTIN 300 MG CAP PO SCH (21:36)
[2018-10-28] MEDS: INSULIN HUMAN NPH SC SCH (21:37)
[2018-10-29] MEDS ORDERED: HEPARIN SOD (PORCINE) 1000 UNIT/ML 10 ML VIAL IV ONE (08:28)
[2018-10-29] MEDS ORDERED: SODIUM CHLORIDE 0.9% 1000ML 1,000 ML IV PRN (08:28)
[2018-10-29] MEDS: SEVELAMER HCL 800 MG TABLET PO SCH ×3 (08:29→17:49)
[2018-10-29] MEDS: CHOLECALCIFEROL 1,000 UNITS TAB PO SCH (08:29)
[2018-10-29] MEDS: NEPHROCAPS PO SCH (08:29)
[2018-10-29] MEDS: ASPIRIN 81 MG ECTAB PO SCH (08:29)
[2018-10-29] MEDS: ATORVASTATIN 40 MG TAB PO SCH (08:29)
[2018-10-29] MEDS: METOPROLOL SUCC 25MG EXT REL TAB PO SCH ×2 (08:29→17:47)
[2018-10-29] MEDS: CLOPIDOGREL BISULFATE 75 MG TAB PO SCH (08:30)
[2018-10-29] MEDS: MAGNESIUM OXIDE 400 MG TAB PO SCH (08:30)
[2018-10-29] MEDS: MICONAZOLE NITRATE POWDER 43 GM TOP SCH ×3 (08:30→20:35)
[2018-10-29] MEDS: INSULIN ASPART 100 UNITS/ML 3 ML PEN SC SCH ×4 (08:35→20:38)
[2018-10-29] MEDS: INSULIN HUMAN NPH SC SCH ×2 (08:38→20:38)
[2018-10-29] MEDS ORDERED: EPOETIN ALFA 10,000 UNITS/ML VIAL IV ONE (09:00)
--- NOTE | 2018-10-29 09:52 | Surgery Progress Note ---
Date of Service October 29, 2018 Assessment & Plan (1) Steal syndrome as complication of dialysis access: Pt now s/p LUE DRIL procedure using prosthetic BPG. Doing well, hand viable. AVF functioning well for HD. Pt also with severe confusion, likely encephalopathy. Discussed with medicine service; they will take in transfer. Will continue to follow d/t recent surgery. Present on Admission?: Yes Subjective 68 yo F with multiple medical problems, POD #2 after LUE DRIL procedure using prosthetic BPG and exploration of RLE saphenous vein, seen in f/u today. Pt very confused, unable to answer questions appropriately. States she is in [facility], responds to her name, but will not make eye contact and falls asleep instantly. Unable to eval ROS. Labs stable, VSS. Review of Systems Review of Systems: Unobtainable due to cognitive status Physical Exam 2 Constitutional: WD/WN, vitals as above + ill appearing (chronically) and + obese Respiratory: normal respiratory effort Auscultation: + diminished lung sounds Cardiovascular: Rate/Rhythm: regular rate and regular rhythm Vessels: r adial pulses present (LUE +1, RUE+2. ) Extremities: normal capillary refill and + AV fistula (LUE AVF with +thrill/bruit) Gastrointestinal (Abdomen): normal bowel sounds, soft, nontender, no hepatosplenomegaly Skin: + incision (LUE incisions C/D/I, +local soft ecchymosis. RLE incision C/D/I faith) RLE incision C/D/I with faith, + local soft ecchymosis and edema. Neurologic: no focal motor deficits Psychiatric: Orientation: oriented to person; + not alert, + not oriented to place, + not oriented to time and + uncooperative Eye Contact: + poor eye contact Affect: + blunted affect Cognition: language grossly intact; + recent memory not intact, + remote memory not intact and + attention not intact Results & Data Vital Signs (Past 12 Hours) Vital Signs Temp Pulse Pulse Resp BP Pulse Ox 10/29/18 07:52 36.8 C 75 18 131/51 L 97 10/29/18 03:39 37.2 C 79 18 147/66 H 99 10/29/18 00:21 37.2 C 83 16 145/69 H 100
--- NOTE | 2018-10-29 10:06 | Pharmacy Report ---
Pharmacy Glycemic Short Note 2 - Date of Service October 29, 2018 - Glycemic Short BSG Results (Last 24 hours): 10/28/18 10/28/18 10/28/18 11:31 16:38 20:26 POC Glucose 175 H 101 H 116 H 10/29/18 07:15 POC Glucose 174 H OUTPATIENT ANTIDIABETIC REGIMEN: * Insulin NPH 26 units qam and 22 units qpm + regular insulin sliding scale * Patient's A1c = 5.8% (05/05/18) * However, this result is likely somewhat unreliable in ESRD patients d/t interactions between the A1c analyzing technique and high levels of urea in ESRD, reduced RBC life span, iron deficiency anemia, and EPO administration. HbA1c > 7.5% in ESRD patient may overestimate the extent of hyperglycemia in ESRD patients. ASSESSMENT: 10/29/18: * POD #3 from DRIL procedure * Patient scheduled for HD today * BSGs ranging 101-195 mg/dL over past 24 hours * Patient received 40 units of insulin yesterday (35 of which were basal) * Fasting BSG this AM of 174 mg/dL * Patient requires assistance with feeding and appears to have limited appetite at this time 10/27/18 * Patient with steal syndrome secondary to AV fistula is POD #1 from DRIL procedure * Patient's relevant PMH includes ESRD (HD on MWF), history of CVA in 2014, CAD, hypertension, and hyperlipidemia * Patient given half dose of NPH in the morning yesterday prior to surgery and given 20 units of Lantus overnight to cover for dexamethasone-induced hyperglycemia * Dexamethasone 8 mg IV administered preoperatively * BSGs ranging from 117-242 over past 24 hours * Patient received 35 units of insulin yesterday (33 of which were basal) * Hemoglobin of 6.9 today; transfused 2 units of PRBCs * Patient received HD today PLAN FOR INPATIENT GLYCEMIC CONTROL: * Hold outpatient oral diabetes medications * Basal insulin -Continue NPH scale SC BID * NPH 15 units for BSG less than 160 mg/dL * NPH 20 units for BSG 160 mg/dL or above * Bolus insulin * NovoLog per scale ACHS or Q6hrs while NPO * Goal Range: Low 110 mg/dL - High 140 mg/dL * Correction Factor: 20 mg/dL/unit * Nutritional / Prandial insulin per carb ratio of 1 unit per 8 grams CHO consumed PLAN FOR DISCHARGE: * Reasonable to consider home regimen, provided she has improved appetite at discharge. * Will reassess closer to discharge.
--- NOTE | 2018-10-29 10:35 | Hospitalist Consultation ---
Date of Consultation October 29, 2018 Assessment & Plan (1) Steal syndrome as complication of dialysis access: This is a 68yo F with a PMH of ESRD on HD on MWF,CAD, DM II, diastolic CHF, HTN, h/o CVA, chronic anemia, interstitial lung disease, KUSHAL, GERD. Had left brachiocephalic AV fistula placed in 2017 for dialysis but recently developed steal syndrome as complication of access and underwent DRIL procedure by Dr. Chambers on 10/26. -POD #3 s/p LUE DRIL procedure using prosthetic BPG. Seen by vascular surgery- AVF functioning well for HD -Okay from a vascular perspective for discharge home but now with metabolic encephalopathy (2) Acute metabolic encephalopathy: Developed acutely yesterday - seen by neurology who feel this is a general, non-focal encephalopathy -CT head without contrast without acute intracranial abnormality. EEG pending -Appreciate further recommendations for neurovascular imaging -Lab work pending, blood cultures obtained, UA ordered to evaluate for infection (3) Postoperative anemia due to acute blood loss: Postop anemia with hgb of 6.9 on 10/27, s/p 2 u prbcs -Hgb improved to 8.9 yesterday. Today's CBC pending -Receiving Epogen with HD (4) Hyperkalemia: Hyperkalemic on Thursday, underwent HD -K of 4.5 yesterday, continue renal diet -Nephrology following (5) ESRD (end stage renal disease) on dialysis: Due for dialysis today -Nephrology consulted (6) Diabetes mellitus, type 2: BSG of 174 today -Glycemic mgmt per pharmacy (7) CAD (coronary artery disease): S/p stent to LAD in the past -Continue aspirin, plavix, statin (8) History of CVA (cerebrovascular accident): Continue aspirin, statin, plavix (9) KUSHAL (obstructive sleep apnea): CPAP HS ordered (has not been receiving) DVT Ppx: SCDs - avoiding pharmacologic VTE in setting of post op anemia Code status: FULL for now. Will need to reassess once mentation improves PCP: [place] Dispo: Admitted to [facility]. Transferring from vascular service to medicine service today. Discharge planning ordered. Patient seen in collaboration with Dr. Steele. Please see addendum. Supervising Physician Co-Signing Physician Notes I have seen and evaluated the patient with physician assurance assistant and at the request of Dr. Chambers from vascular surgery to accept patient to hospitalist medical service and would like to comment with the following changes to the assessment and plans This is a 68-year-old woman with end-stage renal disease on dialysis with previously placed left brachiocephalic AV fistula, and because of left handed pain especially during dialysis, she had angiogram that helped with diagnosis of Vascular accessinduced Steal Syndrome, and was then admitted to vascular surgery service Dr. Chambers, and had on 10/26/18 a Distal Revascularization and Interval Ligation (DRIL) procedure. Post-op course complicated by hypotension and anemia requiring 2 units of PRBC on 10/27/18. Subsequently, patient developed changes in mental status concerning for acute encephalopathy. Physical exam -General/Neuro/Psych: On my exam with the patient, her verbal responses to questions are interrupted by intermittent moments of lethargy and she closes her eyes as if she is sleepy, she is able to answer simple questions with short responses as to how she is feeling but she does not elaborate her current condition, when asked more open ended questions such as to tell me more about her life she tries to focus on answering and then cannot continue -Heart: regular rate and rhythm -Lungs: clear to auscultation bilaterally -Abdomen: soft, nontender, truncal obesity Extremities: dialysis access via left arm and currently getting dialysis At this time, it is unclear as to what the "metabolic" component of encephalopathy would be as she has been able to get successful dialysis sessions, normal arterial blood gas, and currently no fever and normalized leukocytosis since the vascular procedure. Blood cultures have been sent to rule out any potential bacteremia CT head 10/28/18 generally benign findings: Small retention cyst within the left maxillary sinus and small fluid levels within the sphenoid sinuses, unchanged. Mild motion artifact. The calvarium and skull base are intact. There is no mass, hematoma, midline shift, acute infarct. White matter hypodensity is nonspecific but suggestive of microvascular ischemic change. The ventricles and sulci demonstrate mild age-related involutional changes. Old lacunar infarcts seen within the right basal ganglia. There is also an old small lacunar infarct within the left cerebellar hemisphere, unchanged. Old small right occipital lobe infarct, unchanged. Brain MRI may be needed if mental status does not improve significantly. Physician assurance assistant noted that patient has not been on CPAP in the hospital for obstructive sleep apnea and it is possibly that use of CPAP can improve somnolence. have ordered CPAP for patient History of Present Illness Reason for Consultation: altered mental status Attending Physician: Tommy Steele MD History of Present Illness This is a 68yo F with a PMH of ESRD on HD on MWF,CAD, DM II, diastolic CHF, HTN, h/o CVA, chronic anemia, interstitial lung disease, KUSHAL, GERD. Had left brachiocephalic AV fistula placed in 2017 for dialysis but recently developed steal syndrome as complication of access and underwent DRIL procedure by Dr. Chambers on 10/26. On postop day 1, p.m. hyperkalemic and required dialysis. Was also noted to be anemic with hemoglobin of 6.9 and was transfused 2 units of PRBCs. On postop day 2, graft was working well from vascular surgery perspective but patient became acutely disoriented on exam. Also required midodrine for hypotension. Nephro on board to monitor hyperkalemia. On postop day 3, yesterday, patient was evaluated by neurology service who felt that confusion was due to general encephalopathy of nonfocal origin and an EEG and CT head without contrast were ordered. Patient continues to do well from a vascular surgery perspective. Still exhibiting general encephalopathy and is only oriented to person, not to place or time. Is able to follow some commands and not others. Difficult to tell if not following due to surgical pain. Neurology continues to follow. ROS unobtainable due to cognitive status. Is due for HD today. Allergies Allergy/AdvReac Type Severity Reaction Status Date / Time codeine Allergy Intermediate hives Verified 10/26/18 07:10 pioglitazone Allergy Intermediate Rash/Fluid Verified 10/26/18 07:10 retention morphine Allergy Mild HIVES Verified 10/26/18 07:10 Home Medications Home Medications Medication Instructions Recorded Confirmed Type Novolin N NPH U-100 Insulin 22 unit SUBCUT PM 10/29/17 10/26/18 History Novolin N NPH U-100 Insulin 26 unit SUBCUT QAM 10/29/17 10/26/18 History aspirin 81 mg PO QAM 10/29/17 10/26/18 History atorvastatin 40 mg PO QAM 10/29/17 10/26/18 History cholecalciferol (vitamin D3) 5,000 unit PO QAM 10/29/17 10/26/18 History [Vitamin D3] clopidogrel [Plavix] 75 mg PO QAM 10/29/17 10/26/18 History gabapentin 300 mg PO QPM 10/29/17 10/26/18 History magnesium oxide 400 mg PO DAILY 10/29/17 10/26/18 History nitroglycerin [Nitrostat] 0.4 mg SUBLINGUAL UD PRN 10/29/17 10/26/18 History ranitidine HCl 150 mg PO QAM 10/29/17 10/26/18 History acetaminophen [Tylenol] 650 mg PO QID PRN 05/04/18 10/26/18 History sevelamer carbonate [Renvela] 800 mg PO TIDM 05/04/18 10/26/18 History Nephrocaps 1 cap PO QAM 05/27/18 10/26/18 History docusate sodium 100 mg PO BID 05/27/18 10/26/18 History insulin regular human 1 sliding scale dose SUBCUT 08/29/18 10/26/18 History USEASDIRECTD metoprolol succinate [Toprol XL] 25 mg PO QPM 08/29/18 10/26/18 History miconazole nitrate 1 applic TOPICAL TID 08/29/18 10/26/18 History Patient History Medical History Anemia, chronic renal failure (Chronic) Secondary hyperparathyroidism (of renal origin) (Chronic) CAD (coronary artery disease) (Chronic) LAD x 1 11/2016 Diabetic peripheral neuropathy (Chronic) AV fistula (Chronic) LUE ESRD (end stage renal disease) on dialysis (Chronic) M,W,F - [facility] - [facility] w/ Dr. Holder Hyperlipidemia (Chronic) Hypertension (Chronic) Interstitial lung disease (Chronic) Depression (Chronic) Anxiety (Chronic) KUSHAL (obstructive sleep apnea) (Chronic) CPAP GERD (gastroesophageal reflux disease) (Chronic) Diastolic CHF (Chronic) Hx of migraines (Chronic) Diabetes mellitus, type 2 (Chronic) IDDM Hard of hearing Left Vertigo History of CVA (cerebrovascular accident) 2015 x 2 - LUE & LLL weakness, vision changes Hypotension Hypoxia Surgical History History of coronary artery stent placement (Chronic) x 1 - 2017 History of (Chronic) History of cholecystectomy (Chronic) Status post laser trabeculoplasty of eye (Chronic) History of bilateral cataract extraction (Chronic) History of cardiac cath 2017 - [facility] - reason for cath? - 1 stent placed - follows w/ [facility] History of knee replacement procedure of left knee History of knee replacement procedure of right knee History of right shoulder replacement History of surgery Left Upper Extremity Arteriogram, Fistulogram, Ultrasound Localization of Right Femoral Artery - 10/01/2018 History of arteriovenous shunt Family History Father Stomach cancer Grandmother Diabetes Mother Diabetes Brother Diabetes Son Diabetes Other Coronary heart disease Hypertension Social History Preferred Language: Lithuanian Communication Ability: Effective Adoption Worker Required: No Beliefs That Will Affect Care: None marital status: Current Living Situation: Spouse Current Living Situation Comment: Patient currently resides at [facility], [facility] Other Information That Helps Us Care for You: No Feels Safe at Home: Yes Safety Concerns: Feels Safe At This Time Smoking Status: Never smoker Do You Dip or Chew Tobacco: No ; Second Hand Exposure: Yes (as a child) ; Hx Alcohol Use: No Hx Substance Use: No Review of Systems Review of Systems: Unobtainable due to cognitive status Physical Exam Physical Exam: General Appearance: WD/WN, vitals as above, obese female, appears chronically ill Head: normocephalic, atraumatic Eyes: normal inspection, PERRL, conjunctivae normal, anicteric sclerae ENT: external ear and nose normal, oropharynx normal Neck: trachea midline, no thyromegaly normal visual inspection Respiratory: lungs clear to auscultation but diminished, no wheeze, rales, rhonchi. Normal insp/exp effort, no accessory muscle use Cardiovascular: regular rate, rhythm, no murmur, normal peripheral pulses. Vessels: L radial pulse 1+, R radial pulse 2+, + AV fistula (LUE AVF with +thrill/bruit) Chest: normal inspection of chest Abdomen/GI: normal bowel sounds, soft, nontender, no hepatosplenomegaly Extremities/Musculoskelatal: no cyanosis or clubbing, difficult to assess strength as patient not following all commands. Biomedical Engineering Professor strength intact bilaterally Neurologic: PERRL, EOMI, accommodation nl, no face palsy, no dysarthria CN's II-XI intact bilaterally Psychiatric: A+Ox person, not place or time. Pleasantly confused Skin: no rashes, normal color, warm/dry Results & Data Vital Signs (Past 12 Hours) Vital Signs Temp Pulse Pulse Resp BP Pulse Ox 10/29/18 07:52 36.8 C 75 18 131/51 L 97 10/29/18 03:39 37.2 C 79 18 147/66 H 99 10/29/18 00:21 37.2 C 83 16 145/69 H 100 Laboratory Results BMP and CBC pending (1) Diabetes mellitus, type 2 Chronic kidney disease stage: on chronic dialysis Diabetes mellitus complication detail: with chronic kidney disease Diabetes mellitus complication status: with kidney complications Diabetes mellitus half-way insulin use: with half-way use Qualified Code(s): E11.22 - Type 2 diabetes mellitus with diabetic chronic kidney disease; N18.6 - End stage renal disease; Z79.4 - terminal operations manager (current) use of insulin; Z99.2 - Dependence on renal dialysis (2) CAD (coronary artery disease) Associated angina: without angina Coronary Disease-Associated Artery/Lesion type: [place] artery [place] vs. transplanted heart: [place] heart Qualified Code(s): I25.10 - Atherosclerotic heart disease of [place] coronary artery without angina pectoris
[2018-10-29 11:49] LABS: Hematocrit (blood only) 25.3 % (37-47); Hemoglobin 8.3 g/dL (12.0-16.0); Mean Corpuscular Hemoglobin 31.4 pg (25-34); Mean Corpuscular Hgb Conc 32.8 g/dL (32-36); Mean Corpuscular Volume 95.8 fL (80-100); Mean Platelet Volume 9.3 fL (7.4-10.4); Platelet Count 138 K/uL (130-400); RDW Coefficient of Variation 19.8 % (11.5-14.5); RDW Standard Deviation 68.9 fL (36.4-46.3); Red Blood Count 2.64 M/uL (4.2-5.4)
[2018-10-29 12:31] LABS: BUN Creatinine Ratio 6.1 (10-20); Calcium 9.1 mg/dl (8.5-10.1); Creatinine Clr Calc Pharmacy 6.6 ml/min; Est GFR (African American) 5.1; Est GFR (Non-African American) 4.4; Potassium 4.4 mmol/L (3.5-5.1); Thyroid Stimulating Hormone 0.837 uIu/ml (0.300-4.500)
[2018-10-29 12:37] LABS: Base Excess ABG 5.4 mEq/L (-9-1.8); HCO3 ABG 30 mmol/L (19-24); Oxygen Saturation ABG 96.1 % (90-95); PCO2 ABG 44 mmHg (35-46); PO2 ABG 93 mm/Hg (80-95); pH ABG 7.45 (7.35-7.45)
[2018-10-29] MEDS: HEPARIN SOD (PORCINE) 1000 UNIT/ML 10 ML VIAL IV SCH ×3 (12:45→14:45)
[2018-10-29 12:48] LABS: Allen Test Pos (Pos)
--- NOTE | 2018-10-29 14:11 | Electroencephalogram ---
EEG Procedure Note Date of Service October 29, 2018 Start / End Times Start Time: 06:35 End Time: 06:[address] Dmitriy MD History A 68 year old woman with ESRD admitted with encephalopathy. EEG performed for evaluation of epileptiform activity. Home Medication List Home Medications Medication Instructions Recorded Confirmed Type Novolin N NPH U-100 Insulin 22 unit SUBCUT PM 10/29/17 10/26/18 History Novolin N NPH U-100 Insulin 26 unit SUBCUT QAM 10/29/17 10/26/18 History aspirin 81 mg PO QAM 10/29/17 10/26/18 History atorvastatin 40 mg PO QAM 10/29/17 10/26/18 History cholecalciferol (vitamin D3) 5,000 unit PO QAM 10/29/17 10/26/18 History [Vitamin D3] clopidogrel [Plavix] 75 mg PO QAM 10/29/17 10/26/18 History gabapentin 300 mg PO QPM 10/29/17 10/26/18 History magnesium oxide 400 mg PO DAILY 10/29/17 10/26/18 History nitroglycerin [Nitrostat] 0.4 mg SUBLINGUAL UD PRN 10/29/17 10/26/18 History ranitidine HCl 150 mg PO QAM 10/29/17 10/26/18 History acetaminophen [Tylenol] 650 mg PO QID PRN 05/04/18 10/26/18 History sevelamer carbonate [Renvela] 800 mg PO TIDM 05/04/18 10/26/18 History Nephrocaps 1 cap PO QAM 05/27/18 10/26/18 History docusate sodium 100 mg PO BID 05/27/18 10/26/18 History insulin regular human 1 sliding scale dose SUBCUT 08/29/18 10/26/18 History USEASDIRECTD metoprolol succinate [Toprol XL] 25 mg PO QPM 08/29/18 10/26/18 History miconazole nitrate 1 applic TOPICAL TID 08/29/18 10/26/18 History Inpatient Medication List Acetaminophen (Tylenol) 650 mg PO QID PRN PRN Reason: Pain Stop: 11/26/18 09:23 Last Admin: 10/28/18 21:36 Dose: 650 mg Documented by: [id number] Aspirin (Ecotrin Ectab) 81 mg PO DAILY [facility] Stop: 11/26/18 08:59 Last Admin: 10/29/18 08:29 Dose: 81 mg Documented by: [id number] Admin: 10/28/18 08:42 Dose: 81 mg Documented by: [id number] Admin: 10/27/18 09:09 Dose: 81 mg Documented by: [id number] Atorvastatin Calcium (Lipitor) 40 mg PO QAM [facility] Stop: 11/26/18 08:59 Last Admin: 10/29/18 08:29 Dose: 40 mg Documented by: [id number] Admin: 10/28/18 08:43 Dose: 40 mg Documented by: [id number] Admin: 10/27/18 09:09 Dose: 40 mg Documented by: [id number] Clopidogrel Bisulfate (Plavix) 75 mg PO [facility] Stop: 11/26/18 09:23 Last Admin: 10/29/18 08:30 Dose: 75 mg Documented by: [id number] Admin: 10/28/18 08:46 Dose: 75 mg Documented by: [id number] Admin: 10/28/18 08:45 Dose: Not Given Documented by: [id number] Docusate Sodium (Colace) 100 mg PO BID [facility] Stop: 11/26/18 08:59 Last Admin: 10/28/18 21:35 Dose: 100 mg Documented by: [id number] Admin: 10/28/18 08:46 Dose: 100 mg Documented by: [id number] Admin: 10/27/18 20:19 Dose: 100 mg Documented by: [id number] Admin: 10/27/18 09:08 Dose: 100 mg Documented by: [id number] Gabapentin (Neurontin) 300 mg PO QPM [facility] Stop: 11/26/18 20:59 Last Admin: 10/28/18 21:36 Dose: 300 mg Documented by: [id number] Admin: 10/27/18 20:19 Dose: 300 mg Documented by: [id number] Insulin Aspart (Novolog Flexpen) 0 units SC ACHS [facility] Stop: 11/25/18 21:59 Last Admin: 10/29/18 08:35 Dose: 2 units Documented by: [id number] Cosigned by: [id number] Admin: 10/28/18 21:37 Dose: Not Given Documented by: [id number] Cosigned by: [id number] Admin: 10/28/18 16:49 Dose: Not Given Documented by: [id number] Cosigned by: [id number] Admin: 10/28/18 13:08 Dose: 2 units Documented by: [id number] Cosigned by: [id number] Admin: 10/28/18 08:49 Dose: 3 units Documented by: [id number] Cosigned by: [id number] Admin: 10/27/18 20:19 Dose: 2 units Documented by: [id number] Cosigned by: [id number] Admin: 10/27/18 17:44 Dose: 3 units Documented by: [id number] Cosigned by: [id number] Admin: 10/27/18 17:33 Dose: Not Given Documented by: [id number] Cosigned by: [id number] Admin: 10/27/18 09:07 Dose: 5 units Documented by: [id number] Cosigned by: [id number] Admin: 10/26/18 22:04 Dose: 2 units Documented by: [id number] Cosigned by: [id number] Insulin Human NPH (Novolin N Nph) 0 units SC BID [facility]; Protocol Stop: 11/27/18 20:59 Last Admin: 10/29/18 08:38 Dose: 20 units Documented by: [id number] Cosigned by: [id number] Admin: 10/28/18 21:37 Dose: 15 units Documented by: [id number] Cosigned by: [id number] Magnesium Oxide (Mag-Ox) 400 mg PO DAILY [facility] Stop: 11/26/18 09:23 Last Admin: 10/29/18 08:30 Dose: 400 mg Documented by: [id number] Admin: 10/28/18 08:47 Dose: 400 mg Documented by: [id number] Admin: 10/28/18 08:44 Dose: 400 mg Documented by: [id number] Metoprolol Succinate (Toprol Xl) 25 mg PO QAM [facility] Stop: 11/26/18 08:59 Last Admin: 10/28/18 08:46 Dose: 25 mg Documented by: [id number] Admin: 10/27/18 09:07 Dose: Not Given Documented by: [id number] Miconazole Nitrate (Desenex) 1 appln TOP TID [facility] Stop: 11/26/18 09:23 Last Admin: 10/29/18 08:30 Dose: 1 appln Documented by: [id number] Admin: 10/28/18 21:35 Dose: 1 appln Documented by: [id number] Admin: 10/28/18 20:15 Dose: Not Given Documented by: [id number] Admin: 10/28/18 20:14 Dose: Not Given Documented by: [id number] Admin: 10/28/18 20:13 Dose: Not Given Documented by: [id number] Admin: 10/28/18 08:49 Dose: 1 appln Documented by: [id number] Admin: 10/28/18 08:45 Dose: Not Given Documented by: [id number] Admin: 10/27/18 20:18 Dose: 1 appln Documented by: [id number] Midodrine (Proamatine) 10 mg PO ONCE [facility] Stop: 11/26/18 08:59 Last Admin: 10/27/18 09:20 Dose: 10 mg Documented by: [id number] Oxycodone/Acetaminophen (Percocet 5mg/325mg) 1 tab PO Q4H PRN PRN Reason: Moderate Pain Stop: 11/09/18 17:20 Last Admin: 10/28/18 21:36 Dose: 1 tab Documented by: [id number] Admin: 10/28/18 16:48 Dose: 1 tab Documented by: [id number] Ranitidine HCl (Zantac) 150 mg PO QAM [facility] Stop: 11/26/18 08:59 Last Admin: 10/29/18 08:29 Dose: 150 mg Documented by: [id number] Admin: 10/28/18 08:48 Dose: 150 mg Documented by: [id number] Admin: 10/27/18 09:08 Dose: 150 mg Documented by: [id number] Sevelamer HCl (Renagel) 800 mg PO TIDM [facility] Stop: 11/26/18 07:59 Last Admin: 10/29/18 08:29 Dose: 800 mg Documented by: [id number] Admin: 10/28/18 16:48 Dose: 800 mg Documented by: [id number] Admin: 10/28/18 13:10 Dose: 800 mg Documented by: [id number] Admin: 10/28/18 08:48 Dose: 800 mg Documented by: [id number] Admin: 10/27/18 17:42 Dose: Not Given Documented by: [id number] Admin: 10/27/18 17:34 Dose: Not Given Documented by: [id number] Admin: 10/27/18 09:09 Dose: 800 mg Documented by: [id number] Vitamin B Complex/Folic Acid (Nephrocaps) 1 cap PO QAM [facility] Stop: 11/26/18 08:59 Last Admin: 10/29/18 08:29 Dose: 1 cap Documented by: [id number] Admin: 10/28/18 08:42 Dose: 1 cap Documented by: [id number] Admin: 10/27/18 09:09 Dose: 1 cap Documented by: [id number] Vitamin D (Vitamin D3) 5,000 units PO QAM [facility] Stop: 11/26/18 09:23 Last Admin: 10/29/18 08:29 Dose: 5,000 units Documented by: [id number] Admin: 10/28/18 08:47 Dose: 5,000 units Documented by: [id number] Admin: 10/28/18 08:45 Dose: Not Given Documented by: [id number] Discontinued Medications Bupivacaine HCl/Epinephrine Bitart (Sensorcaine/Epinephrine 0.5% Mpf 1:200,000) Confirm Administered Dose 30 ml .ROUTE .STK-MED ONE Stop: 10/26/18 09:36 Last Admin: 10/26/18 13:37 Dose: Not Given Documented by: [id number] Cefazolin Sodium (Ancef) Confirm Administered Dose 1,000 mg .ROUTE .STK-MED ONE Stop: 10/26/18 11:06 Last Admin: 10/26/18 13:39 Dose: Not Given Documented by: [id number] Epoetin Oleg (Procrit) 10,000 units IV ONE ONE Stop: 10/29/18 09:01 Last Admin: 10/29/18 12:39 Dose: 10,000 units Documented by: [id number] Gelatin (Surgifoam Sponge 100 (Large)) Confirm Administered Dose 2 ea .ROUTE .STK-MED ONE Stop: 10/26/18 09:36 Last Admin: 10/26/18 13:38 Dose: 1 ea Documented by: [id number] Heparin Sodium (Porcine) (Heparin Iv Bolus (Jig And Fixture Repairer Use Only)) Confirm Administered Dose 10,000 units .ROUTE .STK-MED ONE Stop: 10/26/18 09:35 Last Admin: 10/26/18 13:35 Dose: 5,000 units Documented by: [id number] Heparin Sodium (Porcine) (Heparin Iv Bolus) 1,000 units IV ONE ONE Stop: 10/29/18 08:29 Last Admin: 10/29/18 11:45 Dose: Not Given Documented by: [id number] Heparin Sodium (Porcine) (Heparin Iv Bolus) 400 units IV Q1H [facility] Stop: 10/29/18 10:31 Last Admin: 10/29/18 13:45 Dose: Not Given Documented by: [id number] Admin: 10/29/18 12:45 Dose: Not Given Documented by: [id number] Hydromorphone HCl (Dilaudid) 0.5 mg IV Q2H PRN PRN Reason: Pain Stop: 11/09/18 17:26 Last Admin: 10/27/18 23:27 Dose: 0.5 mg Documented by: [id number] Admin: 10/27/18 18:19 Dose: 0.5 mg Documented by: [id number] Admin: 10/27/18 12:16 Dose: 0.5 mg Documented by: [id number] Admin: 10/26/18 21:16 Dose: 0.5 mg Documented by: [id number] Hydromorphone HCl (Dilaudid) Confirm Administered Dose 0.5 mg .ROUTE .STK-MED ONE Stop: 10/26/18 17:37 Last Admin: 10/26/18 17:39 Dose: 0.5 mg Documented by: [id number] Sodium Chloride (Nss 1000ml) 1,000 mls @ 30 mls/hr IV .Q24H [facility] Stop: 10/26/18 09:01 Last Infusion: 10/26/18 09:54 Dose: 0 mls/hr Documented by: [id number] Admin: 10/26/18 07:46 Dose: 30 mls/hr Documented by: [id number] Cefazolin Sodium (Ancef 2000mg) 2,000 mg in 15 mls @ 3.75 mls/min IV PREOP [facility] Stop: 10/26/18 16:00 Last Admin: 10/26/18 09:46 Dose: 3.75 mls/min Documented by: [id number] Sodium Chloride (Nss 1000ml) 1,000 mls @ 15 mls/hr IV .Q24H [facility] Stop: 10/26/18 14:00 Last Admin: 10/26/18 07:46 Dose: Not Given Documented by: [id number] Albumin Human (Albumin 5%) 250 mls @ 500 mls/hr IV TODAY@1445 [facility] Stop: 10/26/18 15:14 Last Infusion: 10/26/18 15:15 Dose: 0 mls/hr Documented by: [id number] Admin: 10/26/18 14:45 Dose: 500 mls/hr Documented by: [id number] Cefazolin Sodium (Ancef 2000mg) 2,000 mg in 15 mls @ 3.75 mls/min IV Q8H [facility]; Protocol Stop: 10/27/18 02:03 Last Admin: 10/27/18 01:51 Dose: 3.75 mls/min Documented by: [id number] Admin: 10/26/18 18:03 Dose: 3.75 mls/min Documented by: [id number] Sodium Chloride (Nss) 500 mls @ 50 mls/hr IV .Q10H [facility] Stop: 11/25/18 17:59 Last Admin: 10/27/18 05:48 Dose: Not Given Documented by: [id number] Infusion: 10/27/18 05:48 Dose: 0 mls/hr Documented by: [id number] Admin: 10/26/18 18:03 Dose: 50 mls/hr Documented by: [id number] Cefazolin Sodium (Ancef 2000mg) 2,000 mg in 15 mls @ 3.75 mls/min IV Q8H [facility]; Protocol Stop: 10/27/18 18:03 Last Admin: 10/27/18 20:40 Dose: 3.75 mls/min Documented by: [id number] Admin: 10/27/18 17:42 Dose: 3.75 mls/min Documented by: [id number] Sodium Chloride (Nss 1000ml) 1,000 mls @ 50 mls/hr IV .Q20H [facility] Stop: 11/26/18 09:44 Last Admin: 10/28/18 20:31 Dose: Not Given Documented by: [id number] Insulin Aspart (Novolog Flexpen) 0 units SC 0200 [facility] Stop: 10/27/18 02:01 Last Admin: 10/27/18 01:56 Dose: 5 units Documented by: [id number] Cosigned by: [id number] Insulin Glargine (Lantus Solostar Pen) 20 units SC ONE ONE Stop: 10/26/18 22:01 Last Admin: 10/26/18 22:04 Dose: 20 units Documented by: [id number] Cosigned by: [id number] Insulin Human NPH (Novolin N Nph) 26 units SC ONE ONE Stop: 10/27/18 09:01 Last Admin: 10/27/18 09:20 Dose: 26 units Documented by: [id number] Cosigned by: [id number] Insulin Human NPH (Novolin N Nph) 0 units SC BID [facility]; Protocol Stop: 10/27/18 21:01 Last Admin: 10/27/18 20:27 Dose: 15 units Documented by: [id number] Cosigned by: [id number] Insulin Human NPH (Novolin N Nph) 0 units SC BID [facility]; Protocol Stop: 10/28/18 09:01 Last Admin: 10/28/18 08:49 Dose: 20 units Documented by: [id number] Cosigned by: [id number] Iodixanol (Visipaque) 7.5 ml IV ONCE PRN PRN Reason: Radiology Use Stop: 10/30/18 13:02 Last Admin: 10/26/18 13:05 Dose: 7.5 ml Documented by: [id number] Lidocaine HCl (Xylocaine 1% (Local)) Confirm Administered Dose 20 ml .ROUTE .STK-MED ONE Stop: 10/26/18 09:35 Last Admin: 10/26/18 13:37 Dose: Not Given Documented by: [id number] Oxycodone/Acetaminophen (Percocet 5mg/325mg) 1 - 2 tab PO Q4H PRN PRN Reason: Moderate Pain Stop: 11/09/18 17:20 Last Admin: 10/28/18 03:37 Dose: 2 tab Documented by: [id number] Admin: 10/27/18 20:18 Dose: 2 tab Documented by: [id number] Admin: 10/27/18 09:11 Dose: 2 tab Documented by: [id number] Admin: 10/27/18 03:51 Dose: 2 tab Documented by: [id number] Admin: 10/26/18 23:09 Dose: 2 tab Documented by: [id number] Thrombin (Recothrom Kit) Confirm Administered Dose 20,000 units .ROUTE .STK-MED ONE Stop: 10/26/18 09:36 Last Admin: 10/26/18 13:37 Dose: 20,000 units Documented by: [id number] Description This is a 21 electrode EEG with a single channel dedicated to limited EKG. The electrodes were placed in accordance with the International 10-20 system. REPORT: At the onset of the EEG the patient is in an altered mental state. There is no posterior dominant rhythm. Instead the background consist of diffuse 2-5 Hz theta-delta activity with intermittent generalized sharply contoured waves with triphasic morphology. Photic stimulation does not elicit any abnormalities. IMPRESSION: This is an abnormal EEG in patient in altered mental due to 1. Moderate to severe diffuse background slowing suggestive of a non specific encephalopathy, 2. Intermittent triphasic waves which are non specific but can be seen in hepatic and uremic encephalopathies.
--- NOTE | 2018-10-29 14:22 | Neurology Progress Note ---
Date of Service October 29, 2018 Assessment & Plan (1) Acute metabolic encephalopathy: 1. encephalopathy - likely driven by metabiotic issue due to need for emergent dialysis 2. reports from nursing is improved from yesterday 3. limit narcotic use for pain management 4. CT head MRI brain would be more specific for stroke if able to tolerate- will not move left arm or leg but may be due to pain- no acute findings. 5. nephrology for dialysis timing 6. will continue to follow for resolve of encephalopathy 7. EEG - no seizure focus over all slowing Supervising Physician Co-Signing Physician Notes I have seen and discussed above patient with Dr Ayo Lopez. Routine EEG reviewed. Diffuse slowing with triphasic waves consistent with suspected uremic encephalopathy. Brittany Bunn is a 68 year old female who has a PMH ESRD on HD on MWF, CAD, DM II, diastolic CHF, HTN, h/o CVA, chronic anemia, interstitial lung disease, KUSHAL, GERD, RA with left brachiocephalic AV fistula which was placed in 2017 and being used for dialysis. She has chronic weakness and numbness in her left hand with occasional pain. She has carpal tunnel syndrome as well as a component of neuropathy in that left hand. Two weeks ago she had a sudden onset of swelling in her left hand with a little bit on her forearm. She went to her local emergency room where they evaluated her. There was swelling that she previously had when going to the emergency room has resolved. She did have an Eliecer wrap on her hand from the emergency room which was only on for a few days. She has chronic inability to straighten out her left fingers for a number of years. She was brought in for revision of her fistula and needed emergent dialysis due to potassium > 6.0. She also had revision of her fistula and was given Dilaudid for pain control. Today she is being seen in dialysis. She is more alert today. denies CP, SOB, abdominal pain, N, V. Physical Exam Physical Exam: Gen: alert with voice command, but lethargic lungs: CTA CV RRR squeezes bilaterally right 5/5 left 4/5, wiggles toes on right no movement down going toes states she is in hospital, knows her birthday 1950 Results & Data Vital Signs (Past 12 Hours) Vital Signs Temp Pulse Pulse Pulse Resp BP BP 10/29/18 13:40 83 155/48 H 10/29/18 13:20 80 174/49 H 10/29/18 13:00 79 145/49 H 10/29/18 12:40 78 128/52 L 10/29/18 12:20 76 142/52 H 10/29/18 12:00 77 153/57 H 10/29/18 11:48 77 162/59 H 10/29/18 11:25 36.9 C 78 10/29/18 07:52 36.8 C 75 18 131/51 L 10/29/18 03:39 37.2 C 79 18 147/66 H Pulse Ox 10/29/18 13:40 10/29/18 13:20 10/29/18 13:00 10/29/18 12:40 10/29/18 12:20 10/29/18 12:00 10/29/18 11:48 10/29/18 11:25 10/29/18 07:52 97 10/29/18 03:39 99 Laboratory Results Abnormal lab results 10/28/18 10/28/18 10/29/18 Range/Units 16:38 20:26 07:15 RBC (4.2-5.4) M/uL Hgb (12.0-16.0) g/dL Hct (37-47) % RDW Std Deviation (36.4-46.3) fL RDW Coeff of Cori (11.5-14.5) % ABG HCO3 (19-24) mmol/L ABG O2 Saturation (90-95) % ABG Base Excess (-9-1.8) mEq/L Sodium (136-145) mmol/L Chloride (98-107) mmol/L Anion Gap (3-11) BUN (7-18) mg/dl Creatinine (0.6-1.2) mg/dl BUN/Creatinine Ratio (10-20) Glucose (70-99) mg/dl POC Glucose 101 H 116 H 174 H (70-99) 10/29/18 10/29/18 10/29/18 Range/Units 11:25 11:25 12:29 RBC 2.64 L (4.2-5.4) M/uL Hgb 8.3 L (12.0-16.0) g/dL Hct 25.3 L (37-47) % RDW Std Deviation 68.9 H (36.4-46.3) fL RDW Coeff of Cori 19.8 H (11.5-14.5) % ABG HCO3 30 H (19-24) mmol/L ABG O2 Saturation 96.1 H (90-95) % ABG Base Excess 5.4 H (-9-1.8) mEq/L Sodium 134 L (136-145) mmol/L Chloride 94 L (98-107) mmol/L Anion Gap 12.0 H (3-11) BUN 52 H D (7-18) mg/dl Creatinine 8.44 H* D (0.6-1.2) mg/dl BUN/Creatinine Ratio 6.1 L (10-20) Glucose 164 H (70-99) mg/dl POC Glucose (70-99) Diagnostic Findings CT head- No significant change compared to the prior study. No acute intracranial abnormality. Old infarcts as described above.
--- NOTE | 2018-10-29 16:42 | Nephrology Progress Note ---
Date of Service October 29, 2018 Assessment & Plan (1) ESRD (end stage renal disease) on dialysis: Patient is on HD MWF using a left UA AVF. She is s/p DRIL procedure for left steal syndrome. She tolerated HD today for 4hrs, net UF 3l. Next HD Thursday for 4hrs target UF 3 litres (2) Postoperative anemia due to acute blood loss: Patient has chronic anemia of renal failure. This was aggravated by bleeding intra op. She got a unit of blood with HD on Thursday. Will continue Epogen with HD (3) Hyperkalemia: Due to AVF dysfunction. Improved with HD. Continue renal diet (4) Hypotension: Patient hypotensive and required midodrine pre HD on Thursday. BP better now. Subjective Seen in f/u for ESRD during morning rounds. No SOB. She is not confused. Arm is not painful. Review of Systems Review of Systems: All systems reviewed & are unremarkable except as noted in HPI & below Physical Exam Physical Exam: General exam: Appears comfortable, no acute distress HEENT: Pupils are equal and reactive to light Neck: No JVD, neck is supple trachea is midline Respiratory system: Clear breath sounds bilaterally. Gastrointestinal: Abdomen is soft, non distended, non tender, bowel sounds are present CVS: Regular rate and rhythm. No murmurs, rubs or gallops Musculoskeletal: No joint or muscle tenderness Extremities: Non tender, no edema, peripheral pulses are present Neuro: Oriented, no tremors, no focal neurological deficits Skin: No rashes ACcess: left AVF, good bruit Results & Data Vital Signs (Past 12 Hours) Vital Signs Temp Pulse Pulse Pulse Resp BP BP 10/29/18 16:29 37.3 C 94 H 12 137/78 10/29/18 16:17 36.6 C 90 169/59 H 10/29/18 15:00 89 147/51 H 10/29/18 14:40 87 168/61 H 10/29/18 14:20 85 152/58 H 10/29/18 14:00 85 145/51 H 10/29/18 13:40 83 155/48 H 10/29/18 13:20 80 174/49 H 10/29/18 13:00 79 145/49 H 10/29/18 12:40 78 128/52 L 10/29/18 12:20 76 142/52 H 10/29/18 12:00 77 153/57 H 10/29/18 11:48 77 162/59 H 10/29/18 11:25 36.9 C 78 10/29/18 07:52 36.8 C 75 18 131/51 L Pulse Ox 10/29/18 16:29 98 10/29/18 16:17 10/29/18 15:00 10/29/18 14:40 10/29/18 14:20 10/29/18 14:00 10/29/18 13:40 10/29/18 13:20 10/29/18 13:00 10/29/18 12:40 10/29/18 12:20 10/29/18 12:00 10/29/18 11:48 10/29/18 11:25 10/29/18 07:52 97 Laboratory Results Laboratory Results - last 24 hr 10/28/18 10/28/18 10/29/18 16:38 20:26 07:15 WBC RBC Hgb Hct MCV MCH MCHC RDW Std Deviation RDW Coeff of Cori Plt Count MPV ABG pH ABG pCO2 ABG pO2 ABG HCO3 ABG O2 Saturation ABG Base Excess Mane Test Barometric Pressure Oxygen Given Sodium Potassium Chloride Carbon Dioxide Anion Gap BUN Creatinine Est Cr Clr Drug Dosing Est GFR ( Amer) Est GFR (Non-Af Amer) BUN/Creatinine Ratio Glucose POC Glucose 101 H 116 H 174 H Calcium TSH 10/29/18 10/29/18 10/29/18 11:25 11:25 12:29 WBC 9.40 RBC 2.64 L Hgb 8.3 L Hct 25.3 L MCV 95.8 MCH 31.4 MCHC 32.8 RDW Std Deviation 68.9 H RDW Coeff of Cori 19.8 H Plt Count 138 MPV 9.3 ABG pH 7.45 ABG pCO2 44 ABG pO2 93 ABG HCO3 30 H ABG O2 Saturation 96.1 H ABG Base Excess 5.4 H Mane Test Pos Barometric Pressure 737.9 Oxygen Given ROOM AIR Sodium 134 L Potassium 4.4 Chloride 94 L Carbon Dioxide 28 Anion Gap 12.0 H BUN 52 H D Creatinine 8.44 H* D Est Cr Clr Drug Dosing 6.6 Est GFR ( Amer) 5.1 Est GFR (Non-Af Amer) 4.4 BUN/Creatinine Ratio 6.1 L Glucose 164 H POC Glucose Calcium 9.1 TSH 0.837 (1) Hypotension Hypotension type: unspecified hypotension type Qualified Code(s): I95.9 - Hypotension, unspecified
[2018-10-29] MEDS: DOCUSATE SODIUM 100 MG CAP PO SCH ×2 (17:47→19:55)
--- NOTE | 2018-10-29 18:10 | Magnetic Resonance Report ---
MR brain wo con CLINICAL HISTORY: 68 years-old Female presenting with recent dialysis and transfusion, word finding s dennise then, history of stroke, no history of cancer. TECHNIQUE: Multisequence, multiplanar MR imaging of the brain was performed without the use of intrav enous contrast. IV contrast: None. COMPARISON: Noncontrast CT head performed the previous day and brain MR from 09/02/2016. FINDINGS: Localizer images: Unremarkable. Bone marrow signal intensity within the calvarium within normal limits. Normal midline sagittal structures. Ventricles and sulci normal in size. No mass effect or midline sh ift. No restricted diffusion or hemorrhage. Predominantly periventricular T-2/flair hyperintensity li andrés chronic small vessel ischemic change. Chronic lacunar infarcts in the drea and left frontal lobe with additional infarcts in the right occipital lobe, left cerebellar hemisphere. Old infarcts or Wa llerian degeneration in the right cerebellar peduncle. No extra-axial fluid collection. T2 skull base flow voids preserved. Bilateral [place] lenses are abse nt. IMPRESSION: 1. Multiple old infarcts and chronic small vessel ischemic change. No acute intracranial abnormality . Electronically signed by: Amadeo George M.D. 10/29/2018 6:09 PM
[2018-10-29] MEDS: GABAPENTIN 300 MG CAP PO SCH (19:55)
[2018-10-29] MEDS: HYDROmorphone INJ 0.5 MG/0.5 ML SYR IV PRN (21:54)
[2018-10-30] MEDS: HYDROmorphone INJ 0.5 MG/0.5 ML SYR IV PRN ×2 (01:08→04:42)
[2018-10-30 06:46] LABS: Hematocrit (blood only) 30.4 % (37-47); Hemoglobin 9.7 g/dL (12.0-16.0); Mean Corpuscular Hemoglobin 31.5 pg (25-34); Mean Corpuscular Hgb Conc 31.9 g/dL (32-36); Mean Corpuscular Volume 98.7 fL (80-100); Mean Platelet Volume 9.7 fL (7.4-10.4); Platelet Count 171 K/uL (130-400); RDW Standard Deviation 70.1 fL (36.4-46.3); Red Blood Count 3.08 M/uL (4.2-5.4)
[2018-10-30 07:23] LABS: BUN Creatinine Ratio 5.8 (10-20); Creatinine Clr Calc Pharmacy 9.7 ml/min; Est GFR (African American) 8.2; Est GFR (Non-African American) 7.1; Potassium 4.5 mmol/L (3.5-5.1); Uric Acid 4.1 mg/dl (2.6-7.2)
[2018-10-30] MEDS: INSULIN ASPART 100 UNITS/ML 3 ML PEN SC SCH ×4 (08:12→21:10)
[2018-10-30] MEDS: ATORVASTATIN 40 MG TAB PO SCH (08:13)
[2018-10-30] MEDS: CLOPIDOGREL BISULFATE 75 MG TAB PO SCH (08:13)
[2018-10-30] MEDS: MAGNESIUM OXIDE 400 MG TAB PO SCH (08:13)
[2018-10-30] MEDS: NEPHROCAPS PO SCH (08:13)
[2018-10-30] MEDS: DOCUSATE SODIUM 100 MG CAP PO SCH ×2 (08:13→21:44)
[2018-10-30] MEDS: SEVELAMER HCL 800 MG TABLET PO SCH ×3 (08:13→16:10)
[2018-10-30] MEDS: MICONAZOLE NITRATE POWDER 43 GM TOP SCH ×3 (08:13→21:07)
[2018-10-30] MEDS: ASPIRIN 81 MG ECTAB PO SCH (08:13)
[2018-10-30] MEDS: CHOLECALCIFEROL 1,000 UNITS TAB PO SCH (08:14)
[2018-10-30] MEDS: METOPROLOL SUCC 25MG EXT REL TAB PO SCH (08:14)
[2018-10-30] MEDS ORDERED: INSULIN HUMAN NPH SC SCH (09:00)
[2018-10-30] MEDS ORDERED: POLYETHYLENE (MIRALAX) 17 GM PACK PO PRN (10:58)
[2018-10-30] MEDS ORDERED: MAGNESIUM HYDROXIDE SUSP 30 ML UDC PO ONE (10:58)
[2018-10-30] MEDS: SENNA 8.6 MG TAB PO SCH (11:18)
--- NOTE | 2018-10-30 11:50 | Pharmacy Report ---
Glycemic Control Progress Note - Date of Service October 30, 2018 - Scope Glycemic Pharmacist consulted for glycemic control to write orders per [facility] inpatient glycemic control protocol. - Objective Accuchecks BSG(last 24 hours):: 10/29/18 10/29/18 10/29/18 11:25 16:39 20:38 Glucose 164 H POC Glucose 106 H 142 H 10/30/18 10/30/18 10/30/18 06:30 07:39 11:29 Glucose 160 H POC Glucose 165 H 162 H - Recent Pertinent Medications The patient is currently receiving: * Basal insulin: NPH 17 units BID * Correctional Insulin: Novolog Correction per scale ACHS Goal Range: Low 110 mg/dL - High 140 mg/dL Correction Factor: 20 mg/dL/unit * Prandial insulin: Per carb ratio of 1 unit per 8 grams CHO consumed - Outpatient Anti-Diabetic Meds NPH 26 units qAM + 22 units qPM Regular insulin sliding scale - Assessment & Plan ASSESSMENT: * See progress note from 10/27/18 for more background info, in short: * Pt receiving SQ basal bolus insulin regimen for hyperglycemia secondary to baseline DM (outpatient regimen on hold). * Patient is currently receiving an average of 38 units of insulin per day * 35 units of basal insulin * 3 units of prandial/correctional insulin * BSGs ranging 106 - 174 mg/dl over the past 24hrs * Changes needed to insulin regimen: * AM Fasting BSG = 160 mg/dl. This is slightly above goal range for patient based on inpatient targets and co-morbidities. The fasting blood sugar has been trending downwards so I am happy with this. Even out NPH dosing to 17 units twice daily. May increase morning NPH tomorrow. * Post-prandial BSGs are in range therefore no changes needed to CF/CR. * Total daily dose = ~40 units. PLAN FOR INPATIENT GLYCEMIC CONTROL: * Continuing NPH 17 units SQ BID * Continuing correction factor of 20 mg/dl/unit * Continuing carb ratio of 1 unit per 8 grams CHO consumed * Continuing goal range of Low 110 mg/dL - High 140 mg/dL * Please note that the plan above was derived based on current level of insulin resistance and hospital stress. These recommendations are appropriate for inpatient admission only. Plan of care upon discharge will need to be reassessed to avoid potential outpatient hypo/hyperglycemia. Thank you.
--- NOTE | 2018-10-30 14:12 | Hospitalist Progress Note ---
Date of Service October 30, 2018 Assessment & Plan (1) Steal syndrome as complication of dialysis access: -This is a 68-year-old woman with end-stage renal disease on dialysis with previously placed left brachiocephalic AV fistula, and because of left handed pain especially during dialysis, she had angiogram that helped with diagnosis of Vascular -accessinduced Steal Syndrome, and was then admitted to vascular surgery service Dr. Chambers, and had on 10/26/18 a Distal Revascularization and Interval Ligation (DRIL) procedure. Post-op course complicated by hypotension and anemia requiring 2 units of PRBC on 10/27/18. Subsequently, patient developed changes in mental status concerning for acute encephalopathy. -originally under Vascular surgery Service Dr. Chambers and accepted to medicine hospitalist medical service on 10/29/18 due to recent altered mental status concerning for acute encephalopathy (2) Acute metabolic encephalopathy: -At this time, it is unclear as to what the "metabolic" component of encephalopathy would be as she has been able to get successful dialysis sessions, normal arterial blood gas as seen on 10/29/18, normal TSH, normal ammonia level on 10/30/18 and normal uric acid level on 10/30/18, normalized leukocytosis since the vascular procedure, blood cultures from 10/29/18 with no growth, and continues to be afebrile -patient is a dialysis patient and does not make urine -no new strokes on CT head on 10/28/18 and brain MRI on 10/29/18 -EEG results reviewed on 10/29/18 "an abnormal EEG in patient in altered mental due to (1) Moderate to severe diffuse background slowing suggestive of a non specific encephalopathy (2) Intermittent triphasic waves which are non specific but can be seen in hepatic and uremic encephalopathies" -Physician assistant professor of nursing noted that patient has not been on CPAP in the hospital for obstructive sleep apnea when under vascular surgery service and CPAP was resumed on 10/29/18 to counter sleep deprivation causes of somnolence -discontinue potentially sedative medications including gabapentin -on 10/30/18 discussed with pharmacy glycemic control on perhaps not to control blood sugars too tightly in case patient's mental status partly due to needing to function at high glucose baselines than what is recommended for tight diabetes control -no acute telemetry events and will transfer from telemetry hernandez to medical hernandez for further monitoring -PT/OT evaluations (3) History of CVA (cerebrovascular accident): -History of cerebrovascular accidents were in the past in 2014 CT head 10/28/18 generally benign or old findings: mild age-related involutional changes. Old lacunar infarcts seen within the right basal ganglia. There is also an old small lacunar infarct within the left cerebellar hemisphere, unchanged. Old small right occipital lobe infarct, unchanged Brain MRI on 10/29/18: Multiple old infarcts and chronic small vessel ischemic change. No acute intracranial abnormality -Continue aspirin, statin, plavix (4) KUSHAL (obstructive sleep apnea): -Physician assistant professor of nursing noted that patient has not been on CPAP in the hospital for obstructive sleep apnea when under vascular surgery service and CPA P was resumed on 10/29/18 to counter sleep deprivation causes of somnolence (5) Obesity: Obesity with BMI of 41 -PT/OT evaluations (6) Postoperative anemia due to acute blood loss: -Postop anemia with hgb of 6.9 on 10/27, s/p 2 u prbcs with Hgb improving to above 8 -has Received Epogen with hemodialysis -Hgb 9.7 as of 10/30/18 (7) ESRD (end stage renal disease) on dialysis: -Dialysis every Thursday/Thursday/Thursday -last dialysis session on Thursday10/29/18 (8) Hyperkalemia: Hyperkalemia on corrects with dialysis session (9) Diabetes mellitus, type 2: -on 10/30/18 discussed with pharmacy glycemic control on perhaps not to control blood sugars too tightly in case patient's mental status partly due to needing to function at high glucose baselines than what is recommended for tight diabetes control (10) CAD (coronary artery disease): S/p stent to LAD in the past -Continue aspirin, plavix, statin DVT Ppx: SCDs Code status: FULL CODE as affirmed by patient's Kendall Urrutia ([phone]; [phone]) Subjective Patient is able to answer that she feels fine but again still very minimal with her speech and takes a lot of time to focus on response. She is able to head machinist her 's hands at bedside. She appears to be tearful as if expecting bad news from medical doctor. But her and medical doctor are in agreement that patient's slowness of speech and still intermittent drowsiness or lack of concentration is not her baseline. Patient was able to tolerate CPAP with sleep Physical Exam Constitutional: + obese Eyes: PERRL, conjunctivae normal, anicteric sclerae EOM intact bilaterally ENMT: external ear and nose normal, oropharynx normal Neck: normal visual inspection Respiratory: normal respiratory effort, lungs clear to auscultation Cardiovascular: Rate/Rhythm: regular rate and regular rhythm Gastrointestinal (Abdomen): normal bowel sounds, soft, nontender, no hepatosplenomegaly Neurologic: PERRL, EOMI, accommodation nl, no face palsy, no dysarthria Psychiatric: Orientation: cooperative Eye Contact: + poor eye contact Affect: + flat affect Patient is able to answer that she feels fine but again still very minimal with her speech and takes a lot of time to focus on response. She is able to head machinist her 's hands at bedside. She appears to be tearful as if expecting bad news from medical doctor. But her and medical doctor are in agreement that patient's slowness of speech and still intermittent drowsiness or lack of concentration is not her baseline. Results & Data Vital Signs (Past 12 Hours) Vital Signs Temp Pulse Pulse Pulse Resp BP BP 10/30/18 12:00 36.8 C 64 20 148/72 H 10/30/18 08:00 36.7 C 85 18 109/82 10/30/18 03:41 36.4 C L 85 20 115/74 Pulse Ox 10/30/18 12:00 94 10/30/18 08:00 96 10/30/18 03:41 98 (1) Diabetes mellitus, type 2 Chronic kidney disease stage: on chronic dialysis Diabetes mellitus complication detail: with chronic kidney disease Diabetes mellitus complication status: with kidney complications Diabetes mellitus bed bug exterminator insulin use: with bed bug exterminator use Qualified Code(s): E11.22 - Type 2 diabetes mellitus with diabetic chronic kidney disease; N18.6 - End stage renal disease; Z79.4 - skilled nursing (current) use of insulin; Z99.2 - Dependence on renal dialysis (2) CAD (coronary artery disease) Associated angina: without angina Coronary Disease-Associated Artery/Lesion type: [place] artery [place] vs. transplanted heart: [place] heart Qualified Code(s): I25.10 - Atherosclerotic heart disease of [place] coronary artery without angina pectoris
[2018-10-30] MEDS: INSULIN HUMAN NPH SC SCH (21:11)
[2018-10-30] MEDS: ACETAMINOPHEN 325 MG TAB PO PRN (21:29)
[2018-10-31 07:32] LABS: Hematocrit (blood only) 28.6 % (37-47); Mean Corpuscular Hemoglobin 31.3 pg (25-34); Mean Corpuscular Hgb Conc 31.5 g/dL (32-36); Mean Corpuscular Volume 99.3 fL (80-100); Mean Platelet Volume 9.5 fL (7.4-10.4); Platelet Count 203 K/uL (130-400); RDW Coefficient of Variation 20.2 % (11.5-14.5); RDW Standard Deviation 71.9 fL (36.4-46.3); Red Blood Count 2.88 M/uL (4.2-5.4); White Blood Count 10.61 K/uL (4.8-10.8)
[2018-10-31 08:18] LABS: Alanine Aminotransferase < 6 U/L (12-78); Albumin Globulin Ratio 0.6 (0.9-2); Albumin Level 2.5 gm/dl (3.4-5.0); Alkaline Phosphatase 89 U/L (45-117); Aspartate Aminotransferase 21 U/L (15-37); BUN Creatinine Ratio 7.1 (10-20); Bilirubin,Total 0.5 mg/dl (0.2-1); Blood Urea Nitrogen 60 mg/dl (7-18); Calcium 9.1 mg/dl (8.5-10.1); Carbon Dioxide 25 mmol/L (21-32); Chloride 97 mmol/L (98-107); Creatinine Clr Calc Pharmacy 6.1 ml/min; Est GFR (African American) 5.1; Est GFR (Non-African American) 4.4; Globulin 4.1 gm/dl (2.5-4.0); Glucose 167 mg/dl (70-99); Magnesium 3.4 mg/dl (1.8-2.4); Potassium 4.6 mmol/L (3.5-5.1); Sodium 137 mmol/L (136-145); Total Protein 6.6 gm/dl (6.4-8.2)
[2018-10-31] MEDS: DOCUSATE SODIUM 100 MG CAP PO SCH ×2 (08:33→20:48)
[2018-10-31] MEDS: ATORVASTATIN 40 MG TAB PO SCH (08:33)
[2018-10-31] MEDS: ASPIRIN 81 MG ECTAB PO SCH (08:33)
[2018-10-31] MEDS: MAGNESIUM OXIDE 400 MG TAB PO SCH (08:33)
[2018-10-31] MEDS: NEPHROCAPS PO SCH (08:33)
[2018-10-31] MEDS: SEVELAMER HCL 800 MG TABLET PO SCH ×3 (08:33→17:30)
[2018-10-31] MEDS: CHOLECALCIFEROL 1,000 UNITS TAB PO SCH (08:34)
[2018-10-31] MEDS: METOPROLOL SUCC 25MG EXT REL TAB PO SCH (08:34)
[2018-10-31] MEDS: SENNA 8.6 MG TAB PO SCH (08:34)
[2018-10-31] MEDS: CLOPIDOGREL BISULFATE 75 MG TAB PO SCH (08:34)
[2018-10-31] MEDS: MICONAZOLE NITRATE POWDER 43 GM TOP SCH ×3 (08:43→20:49)
[2018-10-31] MEDS: INSULIN ASPART 100 UNITS/ML 3 ML PEN SC SCH ×4 (08:44→20:54)
[2018-10-31] MEDS: INSULIN HUMAN NPH SC SCH ×2 (09:20→20:53)
--- NOTE | 2018-10-31 10:12 | Pharmacy Report ---
Glycemic Control Progress Note - Date of Service October 31, 2018 - Scope Glycemic Pharmacist consulted for glycemic control to write orders per [facility] inpatient glycemic control protocol. - Objective Accuchecks BSG(last 24 hours):: 10/30/18 10/30/18 10/30/18 11:29 16:44 19:54 Glucose POC Glucose 162 H 158 H 165 H 10/31/18 10/31/18 07:04 07:42 Glucose 167 H POC Glucose 183 H - Recent Pertinent Medications The patient is currently receiving: * Basal insulin: NPH 10-15 units every 12 hours * Correctional Insulin: Novolog Correction per scale ACHS Goal Range: Low 140 mg/dL - High 180 mg/dL Correction Factor: 20 mg/dL/unit * Prandial insulin: Per carb ratio of 1 unit per 8 grams CHO consumed - Outpatient Anti-Diabetic Meds NPH 26 UNITS IN THE MORNING AND 22 UNITS IN THE PM REGULAR SLIDING SCALE - Assessment & Plan ASSESSMENT: * See progress note from 10/27/18 for more background info, in short: * Pt receiving SQ basal bolus insulin regimen for hyperglycemia secondary to baseline DM (outpatient regimen on hold). Patient is not eating well and continues with altered mental status. Goal blood sugars for now around 180 mg/dL. * Patient is currently receiving an average of 34 units of insulin per day * 29 units of basal insulin * 5 units of prandial/correctional insulin * BSGs ranging 158 - 165 mg/dl over the past 24hrs * Changes needed to insulin regimen: * AM Fasting BSG = 183 mg/dl. This is in goal range for patient based on inpatient targets and co-morbidities. Therefore Basal insulin will be continued with current scale. (maximum NPH dose at this point with be 30 units daily which is less than she received the past few days) * Post-prandial BSGs are in range therefore no changes needed to CF/CR. Instructed nurse to hold Novolog for this morning. * Total daily dose = ~30 units. PLAN FOR INPATIENT GLYCEMIC CONTROL: * Continuing NPH 10-15 units SQ BID * 10 units if blood sugar less than 120 mg/dL * 12 units if blood sugar 120-160 mg/dL * 15 units if blood sugar greater than 160 mg/dL * Continuing correction factor of 30 mg/dl/unit * Continuing carb ratio of 1 unit per 10 grams CHO consumed * Continuing goal range of Low 140 mg/dL - High 180 mg/dL RECOMMENDATIONS FOR DISCHARGE: * tbd based upon discharge disposition * Please note that the plan above was derived based on current level of insulin resistance and hospital stress. These recommendations are appropriate for inpatient admission only. Plan of care upon discharge will need to be reassessed to avoid potential outpatient hypo/hyperglycemia. Thank you.
--- NOTE | 2018-10-31 14:33 | Hospitalist Progress Note ---
Date of Service October 31, 2018 Assessment & Plan (1) Steal syndrome as complication of dialysis access: -This is a 68-year-old woman with end-stage renal disease on dialysis with previously placed left brachiocephalic AV fistula, and because of left handed pain especially during dialysis, she had angiogram that helped with diagnosis of Vascular -accessinduced Steal Syndrome, and was then admitted to vascular surgery service Dr. Chambers, and had on 10/26/18 a Distal Revascularization and Interval Ligation (DRIL) procedure. Post-op course complicated by hypotension and anemia requiring 2 units of PRBC on 10/27/18. Subsequently, patient developed changes in mental status concerning for acute encephalopathy. -originally under Vascular surgery Service Dr. Chambers and accepted to medicine hospitalist medical service on 10/29/18 due to recent altered mental status concerning for acute encephalopathy (2) Acute metabolic encephalopathy: -At this time, it is unclear as to what the "metabolic" component of encephalopathy would be as she has been able to get successful dialysis sessions, normal arterial blood gas as seen on 10/29/18, normal TSH, and normal uric acid level on 10/30/18, normal B12 and folic acid levels 10/31/18, normalized leukocytosis since the vascular procedure, blood cultures from 10/29/18 with no growth, and continues to be afebrile -patient is a dialysis patient and does not make urine -no new strokes on CT head on 10/28/18 and brain MRI on 10/29/18 -EEG results reviewed on 10/29/18 "an abnormal EEG in patient in altered mental due to (1) Moderate to severe diffuse background slowing suggestive of a non specific encephalopathy (2) Intermittent triphasic waves which are non specific but can be seen in hepatic and uremic encephalopathies" -normal ammonia level on 10/30/18 -Physician assistant oceanographer noted that patient has not been on CPAP in the hospital for obstructive sleep apnea when under vascular surgery service and CPAP was resumed on 10/29/18 to counter sleep deprivation causes of somnolence -discontinue potentially sedative medications including gabapentin -on 10/30/18 discussed with pharmacy glycemic control on perhaps not to control blood sugars too tightly in case patient's mental status partly due to needing to function at high glucose baselines than what is recommended for tight diabetes control -no acute telemetry events and will transfer from telemetry hernandez to medical hernandez for further monitoring -PT/OT evaluations -pending RPR levels drawn on 10/31/18 (3) History of CVA (cerebrovascular accident): -History of cerebrovascular accidents were in the past in 2014 CT head 10/28/18 generally benign or old findings: mild age-related involutional changes. Old lacunar infarcts seen within the right basal ganglia. There is also an old small lacunar infarct within the left cerebellar hemisphere, unchanged. Old small right occipital lobe infarct, unchanged Brain MRI on 10/29/18: Multiple old infarcts and chronic small vessel ischemic change. No acute intracranial abnormality -Continue aspirin, statin, plavix (4) KUSHAL (obstructive sleep apnea): -Physician assistant oceanographer noted that patient has not been on CPAP in the hospital for obstructive sleep apnea when under vascular surgery service and CPAP was resumed on 10/29/18 to counter sleep deprivation causes of somnolence -oral hygiene q8 hours to prevent dry oral mucosa from CPAP (5) Obesity: Obesity with BMI of 41 -PT/OT evaluations (6) Postoperative anemia due to acute blood loss: -Postop anemia with hgb of 6.9 on 10/27, s/p 2 u prbcs with Hgb improving to above 8 -has Received Epogen with hemodialysis -Hgb 9 as of 10/29/18 (7) ESRD (end stage renal disease) on dialysis: -Dialysis every Thursday/Thursday/Thursday -last dialysis session on Thursday10/29/18 (8) Hyperkalemia: Hyperkalemia on corrects with dialysis session (9) Diabetes mellitus, type 2: -on 10/30/18 discussed with pharmacy glycemic control on perhaps not to control blood sugars too tightly in case patient's mental status partly due to needing to function at high glucose baselines than what is recommended for tight diabetes control (10) CAD (coronary artery disease): S/p stent to LAD in the past -Continue aspirin, plavix, statin DVT Ppx: SCDs Code status: FULL CODE as affirmed by patient's Kendall Urrutia ([phone]; [phone]) discussed with patient's that if patient's over deconditioning and mental status not improving, then possibly may need shelter facility after hospital stay Subjective Patient generally asleep today and spent much of the day on the CPAP. Patient awoke in afternoon time when at bedside. Medical doctor helped patient take off the CPAP mask. Patient is cooperative on exam and tries to make left and right lower extremity movements when asked but she cannot lift her legs up very high. She follows the directions to shake phsycian's hands but her movements generally are very slow and weak. Her mouth seems somewhat dry from having CPAP. she is able to sip water for herself. Patient does not have much to say but appears to not be in pain. She spoke with nurse earlier today Physical Exam Constitutional: + obese Eyes: PERRL, conjunctivae normal, anicteric sclerae EOM intact bilaterally ENMT: Her mouth seems somewhat dry from having CPAP Neck: normal visual inspection Respiratory: normal respiratory effort, lungs clear to auscultation Cardiovascular: Rate/Rhythm: regular rate and regular rhythm Gastrointestinal (Abdomen): normal bowel sounds, soft, nontender, no hepatosplenomegaly Musculoskeletal: Patient generally asleep today and spent much of the day on the CPAP. Patient awoke in afternoon time when at bedside. Medical doctor helped patient take off the CPAP mask. Patient is cooperative on exam and tries to make left and right lower extremity movements when asked but she cannot lift her legs up very high. She follows the directions to shake phsycian's hands but her movements generally are very slow and weak Neurologic: PERRL, EOMI, accommodation nl, no face palsy, no dysarthria Psychiatric: Orientation: cooperative Eye Contact: + poor eye contact Affect: + flat affect Results & Data Vital Signs (Past 12 Hours) Vital Signs Temp Pulse Resp BP Pulse Ox 10/31/18 08:00 36.6 C 84 22 125/67 96 (1) Diabetes mellitus, type 2 Diabetes mellitus fpc insulin use: with fpc use Diabetes mellitus complication status: with kidney complications Diabetes mellitus complication detail: with chronic kidney disease Chronic kidney disease stage: on chronic dialysis Qualified Code(s): E11.22 - Type 2 diabetes mellitus with diabetic chronic kidney disease; N18.6 - End stage renal disease; Z79.4 - long-term (current) use of insulin; Z99.2 - Dependence on renal dialysis (2) CAD (coronary artery disease) Coronary Disease-Associated Artery/Lesion type: [place] artery [place] vs. transplanted heart: [place] heart Associated angina: without angina Qualified Code(s): I25.10 - Atherosclerotic heart disease of [place] coronary artery without angina pectoris
[2018-10-31] MEDS ORDERED: HYDROmorphone INJ 0.5 MG/0.5 ML SYR IV STA (17:46)
[2018-10-31] MEDS ORDERED: PIPERACILL/TAZOBAC CONSULT ACTIVE PRN (17:49)
[2018-10-31] MEDS ORDERED: HYDROmorphone INJ 0.5 MG/0.5 ML SYR IV PRN (17:52)
[2018-10-31] MEDS ORDERED: PIPERACILLIN/TAZOBACTAM 4.5 GM in DEXTROSE 5% 100 ML IV STA (17:59)
[2018-10-31 18:47] LABS: C Reactive Protein 13.4 mg/dl (0-0.29)
--- NOTE | 2018-10-31 19:30 | Ultrasound Report ---
US venous doppler LE CLINICAL HISTORY: 68 years-old Female presenting with recent right leg surgery, bilateral lower extre mity pain. TECHNIQUE: Real-time grayscale and color and spectral Doppler ultrasound imaging of the veins of the bilateral lower extremities was performed. Compression and augmentation were also utilized. COMPARISON: None. FINDINGS: RIGHT: Examination limited in the right lower extremity by the presence of a surgical incision and as sociated bandage material. Common femoral vein: Patent. Greater saphenous vein (superficial): Patent in the mid to distal portions, limited evaluation in the proximal portion. Deep femoral vein: Patent. Femoral vein: Patent. Popliteal vein: Patent. Calf veins: Patent. LEFT: Common femoral vein: Patent. Greater saphenous vein (superficial): Patent. Deep femoral vein: Patent. Femoral vein: Patent. Popliteal vein: Patent. Calf veins: Patent. Other: None. IMPRESSION: No evidence of deep venous thrombosis allowing for the presence of surgical bandage material in the r ight lower extremity. Electronically signed by: Amadeo George M.D. 10/31/2018 7:28 PM
[2018-11-01] MEDS: PIPERACILLIN/TAZOBACTAM 4.5 GM in DEXTROSE 5% 100 ML IV SCH ×2 (01:54→13:52)
[2018-11-01] MEDS: CHOLECALCIFEROL 1,000 UNITS TAB PO SCH (07:44)
[2018-11-01] MEDS: ATORVASTATIN 40 MG TAB PO SCH (07:44)
[2018-11-01] MEDS: CLOPIDOGREL BISULFATE 75 MG TAB PO SCH (07:44)
[2018-11-01] MEDS: NEPHROCAPS PO SCH (07:45)
[2018-11-01] MEDS: SENNA 8.6 MG TAB PO SCH (07:45)
[2018-11-01] MEDS: SEVELAMER HCL 800 MG TABLET PO SCH ×4 (07:45→17:20)
[2018-11-01] MEDS: METOPROLOL SUCC 25MG EXT REL TAB PO SCH (07:46)
[2018-11-01] MEDS: ASPIRIN 81 MG ECTAB PO SCH (07:46)
[2018-11-01] MEDS: MAGNESIUM OXIDE 400 MG TAB PO SCH (07:46)
[2018-11-01] MEDS: MICONAZOLE NITRATE POWDER 43 GM TOP SCH ×3 (07:47→19:49)
[2018-11-01] MEDS: DOCUSATE SODIUM 100 MG CAP PO SCH ×2 (07:48→19:49)
[2018-11-01] MEDS: INSULIN HUMAN NPH SC SCH ×2 (08:40→21:03)
[2018-11-01] MEDS: INSULIN ASPART 100 UNITS/ML 3 ML PEN SC SCH ×4 (08:40→21:03)
--- NOTE | 2018-11-01 09:48 | Pharmacy Report ---
Pharmacy Glycemic Short Note 2 - Date of Service November 01, 2018 - Glycemic Short BSG Results (Last 24 hours): 10/31/18 10/31/18 10/31/18 11:30 16:22 19:49 POC Glucose 180 H 157 H 170 H 11/01/18 07:55 POC Glucose 181 H OUTPATIENT ANTIDIABETIC REGIMEN: * Insulin NPH 26 units qam and 22 units qpm + regular insulin sliding scale * Patient's A1c = 5.8% (05/05/18) * However, this result is likely somewhat unreliable in ESRD patients d/t interactions between the A1c analyzing technique and high levels of urea in ESRD, reduced RBC life span, iron deficiency anemia, and EPO administration. HbA1c > 7.5% in ESRD patient may overestimate the extent of hyperglycemia in ESRD patients. ASSESSMENT: 11/01/18: * POD #6 from DRIL procedure * Patient scheduled for HD today ([facility]) * BSGs ranging 157-183 mg/dL yesterday * Fasting BSG this AM is 181 mg/dL (fasting BSGs remain elevated) * Patient received 27 units of basal insulin yesterday (no Novolog was given) * Patient has very limited appetite at this time 10/27/18 * Patient with steal syndrome secondary to AV fistula is POD #1 from DRIL procedure * Patient's relevant PMH includes ESRD (HD on MWF), history of CVA in 2014, CAD, hypertension, and hyperlipidemia * Patient given half dose of NPH in the morning yesterday prior to surgery and given 20 units of Lantus overnight to cover for dexamethasone-induced hyperglycemia * Dexamethasone 8 mg IV administered preoperatively * BSGs ranging from 117-242 over past 24 hours * Patient received 35 units of insulin yesterday (33 of which were basal) * Hemoglobin of 6.9 today; transfused 2 units of PRBCs * Patient received HD today PLAN FOR INPATIENT GLYCEMIC CONTROL: * Hold outpatient oral diabetes medications * Basal insulin - will increase NPH to 15 units BID due to persistently elevated fasting BSGs * Bolus insulin - BSGs reasonably controlled - will continue current parameters * NovoLog per scale ACHS or Q6hrs while NPO * Goal Range: Low 140 mg/dL - High 180 mg/dL * Correction Factor: 30 mg/dL/unit * Nutritional / Prandial insulin per carb ratio of 1 unit per 10 grams CHO consumed PLAN FOR DISCHARGE: * Reasonable to consider home regimen, provided she has improved appetite at discharge. * Will reassess closer to discharge.
--- NOTE | 2018-11-01 11:15 | Hospitalist Progress Note ---
Date of Service November 01, 2018 Assessment & Plan (1) Steal syndrome as complication of dialysis access: Vascular-accessinduced Steal Syndrome (Steal syndrome as complication of dialysis access); s/p Distal Revascularization and Interval Ligation (DRIL) procedure on 10/26/18 -This is a 68-year-old woman with end-stage renal disease on dialysis with previously placed left brachiocephalic AV fistula, and because of left handed pain especially during dialysis, she had angiogram that helped with diagnosis of Vascular -accessinduced Steal Syndrome, and was then admitted to vascular surgery service Dr. Chambers, and had on 10/26/18 a Distal Revascularization and Interval Ligation (DRIL) procedure. Post-op course complicated by hypotension and anemia requiring 2 units of PRBC on 10/27/18. Subsequently, patient developed changes in mental status concerning for acute encephalopathy. -originally under Vascular surgery Service Dr. Chambers and accepted to medicine hospitalist medical service on 10/29/18 due to recent altered mental status concerning for acute encephalopathy (2) Acute metabolic encephalopathy: -At this time, it is unclear as to what the metabolic component of encephalopathy would be as she has been able to get successful dialysis sessions, normal arterial blood gas as seen on 10/29/18, normal TSH, and normal uric acid level on 10/30/18, normal B12 and folic acid levels 10/31/18, normalized leukocytosis since the vascular procedure, blood cultures from 10/29/18 with no growth, and continues to be afebrile -patient is a dialysis patient and does not make urine -no new strokes on CT head on 10/28/18 and brain MRI on 10/29/18 -EEG results reviewed on 10/29/18 "an abnormal EEG in patient in altered mental due to (1) Moderate to severe diffuse background slowing suggestive of a non specific encephalopathy (2) Intermittent triphasic waves which are non specific but can be seen in hepatic and uremic encephalopathies" -normal ammonia level on 10/30/18 -Physician engineer assistant noted that patient has not been on CPAP in the hospital for obstructive sleep apnea when under vascular surgery service and CPAP was resumed on 10/29/18 to counter sleep deprivation causes of somnolence -discontinue potentially sedative medications including gabapentin -on 10/30/18 discussed with pharmacy glycemic control on perhaps not to control blood sugars too tightly in case patient's mental status partly due to needing to function at high glucose baselines than what is recommended for tight diabetes control -no acute telemetry events and transferred from telemetry to medical hernandez on 10/30/18 for further monitoring -10/31/18: patient reported to nurse of leg cramp. medical doctor asked nurse to help patient get from bed to chair. nurse attempted but patient kept screaming in pain while laying on bed when being asked to sit up and move. she has some redness of her left thigh. has been on SCDs for DVT prophylaxis. given dilaudid for pain, ultrasound doppler of lower extremities and no deep vein thrombosis, blood cultures were drawn, ESR elevated as 90, CRP elevated as 13.4 , creatinine k empiric IV antibiotics of Zosyn was started, creatinine kinase mildly elevated as 351 -PT/OT evaluations -pending RPR levels drawn on 10/31/18 (3) History of CVA (cerebrovascular accident): -History of cerebrovascular accidents were in the past in 2014 CT head 10/28/18 generally benign or old findings: mild age-related involutional changes. Old lacunar infarcts seen within the right basal ganglia. There is also an old small lacunar infarct within the left cerebellar hemisphere, unchanged. Old small right occipital lobe infarct, unchanged Brain MRI on 10/29/18: Multiple old infarcts and chronic small vessel ischemic change. No acute intracranial abnormality -Continue aspirin, plavix -was getting atorvastatin 40 mg daily but will plan on hold atorvastatin for now because of mildly elevated creatinine kinase 351 on 10/31/18 (4) CAD (coronary artery disease): S/p stent to LAD in the past -Continue aspirin, plavix -was getting atorvastatin 40 mg daily but will plan on hold atorvastatin for now because of mildly elevated creatinine kinase 351 on 10/31/18 (5) KUSHAL (obstructive sleep apnea): -Physician engineer assistant noted that patient has not been on CPAP in the hospital for obstructive sleep apnea when under vascular surgery service and CPAP was resumed on 10/29/18 to counter sleep deprivation causes of somnolence -oral hygiene q8 hours to prevent dry oral mucosa from CPAP (6) Obesity: Obesity with BMI of 41 -PT/OT evaluations (7) Postoperative anemia due to acute blood loss: -Postop anemia with hgb of 6.9 on 10/27, s/p 2 u prbcs with Hgb improving to above 8 -has Received Epogen with hemodialysis -Hgb 9 as of 10/29/18 (8) ESRD (end stage renal disease) on dialysis: -Dialysis every Thursday/Thursday/Thursday -recent dialysis session on Thursday11/01/18 (9) Hyperkalemia: Hyperkalemia on corrects with dialysis session (10) Diabetes mellitus, type 2: Insulin Dependent Diabetes Mellitus -on 10/30/18 discussed with pharmacy glycemic control on perhaps not to control blood sugars too tightly in case patient's mental status partly due to needing to function at high glucose baselines than what is recommended for tight diabetes control -monitor blood glucose while on insulin with assistance from pharmacy glycemic control DVT Ppx: SCDs Code status: FULL CODE as affirmed by patient's Kendall Urrutia ([phone]; [phone]) discussed with patient's that if patient's over deconditioning and mental status not improving, then possibly may need half-way facility after hospital stay given encephalopathy and multiple co-morbid conditions, have requested palliative care to assist in medical evaluation and further goals of care discussions Subjective Patient seen and examined in dialysis. She is more oriented today. When asked where she was, she is able to stay in "dialysis unit". She appears to be calm and watching TV. She denies pain. She reports she feels "fine". She does not elaborate. Dialysis running through left arm. breathing on room air. no acute pain or tenderness on palpation of the leg Physical Exam Constitutional: + obese Eyes: PERRL, conjunctivae normal, anicteric sclerae EOM intact bilaterally ENMT: external ear and nose normal, oropharynx normal Neck: normal visual inspection Respiratory: normal respiratory effort, lungs clear to auscultation Cardiovascular: Rate/Rhythm: regular rate and regular rhythm Gastrointestinal (Abdomen): normal bowel sounds, soft, nontender, no hepat osplenomegaly Musculoskeletal: no acute pain or tenderness on palpation of the leg; Dialysis running through left arm Neurologic: PERRL, EOMI, accommodation nl, no face palsy, no dysarthria Psychiatric: Orientation: cooperative Affect: + flat affect She is more oriented today. When asked where she was, she is able to stay in "dialysis unit". She appears to be calm and watching TV. She denies pain. She reports she feels "fine". She does not elaborate. Dialysis running through left arm. Results & Data Vital Signs (Past 12 Hours) Vital Signs Temp Pulse BP Pulse Ox 11/01/18 10:43 36.8 C 84 96/59 L 90 11/01/18 10:34 37.1 C 83 (1) Diabetes mellitus, type 2 Chronic kidney disease stage: on chronic dialysis Diabetes mellitus complication detail: with chronic kidney disease Diabetes mellitus complication status: with kidney complications Diabetes mellitus manager terminal insulin use: with longterm use Qualified Code(s): E11.22 - Type 2 diabetes mellitus with diabetic chronic kidney disease; N18.6 - End stage renal disease; Z79.4 - watermelon inspector (current) use of insulin; Z99.2 - Dependence on renal dialysis (2) CAD (coronary artery disease) Associated angina: without angina Coronary Disease-Associated Artery/Lesion type: [place] artery [place] vs. transplanted heart: [place] heart Qualified Code(s): I25.10 - Atherosclerotic heart disease of [place] coronary artery without angina pectoris
--- NOTE | 2018-11-01 14:44 | Nephrology Progress Note ---
Date of Service November 01, 2018 Assessment & Plan (1) ESRD (end stage renal disease) on dialysis: ESRD on HD MWF using a left UA AVF. She is s/p DRIL 10/26 for steal syndrome. She tolerated HD today for 4hrs, net UF 3l. Plan for today was for 4hrs target UF 3 litres; however pt had high venous access pressures and ultimately venous limb infiltration and so stopped tx 2 hrs early with 1.2 L UF Will get CXR and use this/ other clinical data to decide about short tx tomorrow >> will have low threshold to do this If ongoing venous access issues may need to have surgery reevaluate arm (2) Postoperative anemia due to acute blood loss: Patient has chronic anemia of renal failure. This was aggravated by bleeding intra op. She got a unit of blood with HD on 10/27. Will continue Epogen with HD (3) Hypotension: Patient hypotensive and required midodrine pre HD on Friday 10/27. BP better now though still labile; monitor for need for midodrine Subjective not able to participate in ROS d/t profoundly altered MS; awake, alert; tracks very slowly; unable to answer where or who she is or if any pain Review of Systems Review of Systems: Unobtainable due to cognitive status Physical Exam Constitutional: well developed, well nourished, + obese and + altered mental status on Eyes: EOM intact bilaterally ENMT: Ears: no external ear abnormality Nose: no external nose abnormality Mouth: + dry oral mucous membranes (very dry) Neck: no nuchal rigidity Respiratory: normal respiratory effort Auscultation: + diminished lung sounds Cardiovascular: Rate/Rhythm: regular rate and regular rhythm Extremities: + edema (trace) Gastrointestinal (Abdomen): Inspection/Auscultation: normal bowel sounds Percussion/Palpation: abdomen soft; abdomen nontender Musculoskeletal: Extremities: strength 5/5 throughout does not follow comma nds Skin: no rashes, warm and dry + pallor Neurologic: Speech / Cognition: + abnormal speech and + abnormal cognition Motor/Sensory: + abnormal movement altered mental status Psychiatric: cannot evaluate d/t altered MS Results & Data Vital Signs (Past 12 Hours) Vital Signs Temp Pulse Pulse BP BP Pulse Ox 11/01/18 14:18 36.9 C 91 H 114/71 97 11/01/18 12:20 86 143/65 H 11/01/18 12:00 92 H 107/52 L 11/01/18 11:40 86 132/64 11/01/18 11:20 86 143/65 H 11/01/18 11:00 96 H 149/70 H 11/01/18 10:43 36.8 C 84 96/59 L 90 11/01/18 10:34 37.1 C 83 Laboratory Results 10/31/18 07:04 10/31/18 07:04 (1) Hypotension Hypotension type: unspecified hypotension type Qualified Code(s): I95.9 - Hypotension, unspecified
[2018-11-01] MEDS: ACETAMINOPHEN 325 MG TAB PO PRN (23:12)
[2018-11-02] MEDS: PIPERACILLIN/TAZOBACTAM 4.5 GM in DEXTROSE 5% 100 ML IV SCH ×2 (02:36→14:35)
[2018-11-02] MEDS: ASPIRIN 81 MG ECTAB PO SCH (08:02)
[2018-11-02] MEDS: NEPHROCAPS PO SCH (08:02)
[2018-11-02] MEDS: METOPROLOL SUCC 25MG EXT REL TAB PO SCH (08:02)
[2018-11-02] MEDS: SEVELAMER HCL 800 MG TABLET PO SCH ×3 (08:02→15:59)
[2018-11-02] MEDS: CHOLECALCIFEROL 1,000 UNITS TAB PO SCH (08:02)
[2018-11-02] MEDS: MAGNESIUM OXIDE 400 MG TAB PO SCH (08:02)
[2018-11-02] MEDS: SENNA 8.6 MG TAB PO SCH (08:03)
[2018-11-02] MEDS: CLOPIDOGREL BISULFATE 75 MG TAB PO SCH (08:03)
[2018-11-02] MEDS: INSULIN ASPART 100 UNITS/ML 3 ML PEN SC SCH ×4 (08:05→21:03)
[2018-11-02] MEDS: MICONAZOLE NITRATE POWDER 43 GM TOP SCH ×3 (08:06→21:03)
[2018-11-02] MEDS: INSULIN HUMAN NPH SC SCH ×2 (08:06→21:02)
[2018-11-02] MEDS: DOCUSATE SODIUM 100 MG CAP PO SCH ×2 (08:08→21:06)
--- NOTE | 2018-11-02 09:29 | XRay Report ---
XR chest 1V portable CLINICAL HISTORY: 68 years-old Female presenting with altered mental status, esrd> eval vol/ aspirati on. TECHNIQUE: Portable upright AP view of the chest was obtained. COMPARISON: 06/04/2018. FINDINGS: Atherosclerosis of the aortic arch. Cardiac silhouette enlarged. Mitral annular calcification. Pulmon jose vasculature is only minimally prominent. No focal opacity. No large effusion or pneumothorax. Gustavo gical clips project over the left axilla or left upper arm. Right shoulder arthroplasty. Underlying o steopenia may be present. Upper abdomen normal. IMPRESSION: 1. Cardiomegaly. Minimal volume overload. No congestive change. No other convincing evidence of acut e cardiopulmonary disease. Electronically signed by: Amadeo George M.D. 11/02/2018 9:27 AM
--- NOTE | 2018-11-02 10:25 | Palliative Care Consultation ---
Date of Consultation November 02, 2018 Assessment & Plan (1) Goals of care, counseling/discussion: -This is a 68-year-old woman with end-stage renal disease on dialysis M/W/F, with previously placed left brachiocephalic AV fistula, and because of left handed pain especially during dialysis, she had angiogram that helped with diagnosis of Vascular -accessinduced Steal Syndrome, and was then admitted to vascular surgery service Dr. Chambers, and had on 10/26/18 a Distal Revascularization and Interval Ligation (DRIL) procedure. Post-op course complicated by hypotension and anemia requiring 2 units of PRBC on 10/27/18. Subsequently, patient developed changes in mental status concerning for acute encephalopathy. Neurology consulted-- EEG showed encephalopathy. Brain MRI-- chronic small vessel change. Patient is weak and slowly declining. Lives at home with her , Kendall, who indicated it is getting more difficult to care for patient at home. Dialysis treatment had to be stopped early yesterday due to blood pressure, states low blood pressures have been an ongoing issue re cently. Palliative care consulted to discuss goals of care. -Met with patient in room 253 this morning. She is awake, oriented to person and stated, "They tell me I'm at [facility]." Did not know date or time. Did not know why she is in hospital. -Returned to room later when Kendall at bedside. Kendall states that patient at baseline is able to carry on a conversation with some forgetfulness but she is mostly oriented. She is able to ambulate short distances with walker, but uses wheelchair as well. Strength has been declining recently and patient does not fully recover after each hospitalization. -Kendall's biggest concern is their financial situation. He and the patient are agreeable for patient to go to rehab after hospital if needed. Their main goal is for patient to be at home, and Kendall really doesn't know what they will do if her care becomes too much for him to manage. They have custody of their 13-year-old granddaughter, which also puts stress on Kendall. He does not know how they will afford it if patient ends up needing SNF long-term. He is unsure if they currently qualify for medicaid. -As far as CODE STATUS, patient to remain a full code at this time. kendall states he needs to discuss further with the patient when she is more mentally clear. Patient has no living will, which we discussed is extremely important if her mentation clears and she is able to complete one. -Goal is for rehab if recommended by PT/OT (is rec'd by PT so far), and eventually get back home. Continue dialysis. Kendall asked about [facility], but I think that would be a little too rigorous for patient. SNF setting likely better. Case management following. Discussed hospice, but patient and not ready. -Palliative care will follow peripherally and be available for any further med [facility] decision making if needed. (2) Acute metabolic encephalopathy: (3) Postoperative anemia due to acute blood loss: (4) Steal syndrome as complication of dialysis access: History of Present Illness Attending Physician: Tommy Steele MD History of Present Illness This is a 68-year-old woman with end-stage renal disease on dialysis M/W/F, with previously placed left brachiocephalic AV fistula, and because of left handed pain especially during dialysis, she had angiogram that helped with diagnosis of Vascular -accessinduced Steal Syndrome, and was then admitted to vascular surgery service Dr. Chambers, and had on 10/26/18 a Distal Revascularization and Interval Ligation (DRIL) procedure. Post-op course complicated by hypotension and anemia requiring 2 units of PRBC on 10/27/18. Subsequently, patient developed changes in mental status concerning for acute encephalopathy. Neurology consulted-- EEG showed encephalopathy. Brain MRI-- chronic small vessel change. Patient is weak and slowly declining. Lives at home with her , Kendall, who indicated it is getting more difficult to care for patient at home. Dialysis treatment had to be stopped early yesterday due to blood pressure, states low blood pressures have been an ongoing issue recently. Palliative care consulted to discuss goals of care. Thank you kindly for this consult. Palliative care team will follow as needed. Allergies Allergy/AdvReac Type Severity Reaction Status Date / Time codeine Allergy Intermediate hives Verified 10/26/18 07:10 pioglitazone Allergy Intermediate Rash/Fluid Verified 10/26/18 07:10 retention morphine Allergy Mild HIVES Verified 10/26/18 07:10 Home Medications Home Medications Medication Instructions Recorded Confirmed Type Novolin N NPH U-100 Insulin 22 unit SUBCUT PM 10/29/17 10/26/18 History Novolin N NPH U-100 Insulin 26 unit SUBCUT QAM 10/29/17 10/26/18 History aspirin 81 mg PO QAM 10/29/17 10/26/18 History atorvastatin 40 mg PO QAM 10/29/17 10/26/18 History gabapentin 300 mg PO QPM 10/29/17 10/26/18 History nitroglycerin [Nitrostat] 0.4 mg SUBLINGUAL UD PRN 10/29/17 10/26/18 History ranitidine HCl 150 mg PO QAM 10/29/17 10/26/18 History sevelamer carbonate [Renvela] 800 mg PO TIDM 05/04/18 10/26/18 History Nephrocaps 1 cap PO QAM 05/27/18 10/26/18 History docusate sodium 100 mg PO BID 05/27/18 10/26/18 History insulin regular human 1 sliding scale dose SUBCUT 08/29/18 10/26/18 History USEASDIRECTD metoprolol succinate [Toprol XL] 25 mg PO QPM 08/29/18 10/26/18 History cholecalciferol (vitamin D3) 5,000 unit PO DAILY 10/30/18 10/30/18 History [Vitamin D3] clopidogrel 75 mg PO DAILY 10/30/18 10/30/18 History Patient History Medical History Anemia, chronic renal failure (Chronic) Secondary hyperparathyroidism (of renal origin) (Chronic) CAD (coronary artery disease) (Chronic) LAD x 1 11/2016 Diabetic peripheral neuropathy (Chronic) AV fistula (Chronic) LUE ESRD (end stage renal disease) on dialysis (Chronic) M,W,F - [facility] - follows w/ Dr. Holder Hyperlipidemia (Chronic) Hypertension (Chronic) Interstitial lung disease (Chronic) Depression (Chronic) Anxiety (Chronic) KUSHAL (obstructive sleep apnea) (Chronic) CPAP GERD (gastroesophageal reflux disease) (Chronic) Diastolic CHF (Chronic) Hx of migraines (Chronic) Diabetes mellitus, type 2 (Chronic) IDDM Hard of hearing Left Vertigo History of CVA (cerebrovascular accident) 2015 x 2 - LUE & LLL weakness, vision changes Hypotension Hypoxia Surgical History History of coronary artery stent placement (Chronic) x 1 - 2017 History of (Chronic) History of cholecystectomy (Chronic) Status post laser trabeculoplasty of eye (Chronic) History of bilateral cataract extraction (Chronic) History of cardiac cath 2017 - [facility] - reason for cath? - 1 stent placed - follows w/ [facility] History of knee replacement procedure of left knee History of knee replacement procedure of right knee History of right shoulder replacement History of surgery Left Upper Extremity Arteriogram, Fistulogram, Ultrasound Localization of Right Femoral Artery - 10/01/2018 History of arteriovenous shunt Family History Father Stomach cancer Grandmother Diabetes Mother Diabetes Brother Diabetes Son Diabetes Other Coronary heart disease Hypertension Social History Preferred Language: Korean Communication Ability: Effective Heel Seat Sander Required: No Beliefs That Will Affect Care: None marital status: Current Living Situation: Spouse Current Living Situation Comment: Patient currently resides at [facility], has who lives at their [facility] Other Information That Helps Us Care for You: No Feels Safe at Home: Yes Safety Concerns: Feels Safe At This Time Smoking Status: Never smoker Do You Dip or Chew Tobacco: No ; Second Hand Exposure: Yes (as a child) ; Hx Alcohol Use: No Hx Substance Use: No Review of Systems Review of Systems: Const: + weakness ENMT: No dysphagia Resp: No SOB, no cough Cardio: No chest pain, no edema GI: No abdominal pain, N/V MS: No musculoskeletal pain Neuro: + confusion (reported by ) Psych: No anxiety Physical Exam Constitutional: + ill appearing (chronically) and + obese ENMT: external ear and nose normal, oropharynx normal Neck: + thick neck Respiratory: normal respiratory effort Auscultation: + diminished lung ailin nds Cardiovascular: Rate/Rhythm: regular rate and regular rhythm Extremities: no edema Gastrointestinal (Abdomen): Inspection/Auscultation: abdomen normal to inspection and normal bowel sounds Percussion/Palpation: abdomen soft; abdomen nontender Skin: no rashes, warm and dry Neurologic: moves all extremities and awake Psychiatric: Orientation: oriented to person and oriented to place; + not alert (drowsy) and + not oriented to time Results & Data Vital Signs (Past 12 Hours) Vital Signs Temp Pulse Resp BP Pulse Ox 11/02/18 09:18 97 11/02/18 07:21 36.6 C 84 20 129/72 95 11/01/18 23:09 37.6 C H 94 H 18 115/79 94 PG Care Time/CCT Total # of Minutes Spent Total Time Spent with Patient: Total time spent is greater than 50% in coordination of care (as documented) at patient's floor/unit and/or counseling patient: Time Spent Midlevel 80 minutes with >50% of the time spent at bedside with patient and family discussing condition and GOC.
--- NOTE | 2018-11-02 14:10 | Pharmacy Report ---
Pharmacy Glycemic Short Note 2 - Date of Service November 02, 2018 - Glycemic Short BSG Results (Last 24 hours): 11/01/18 11/01/18 11/02/18 16:18 20:35 07:37 POC Glucose 211 H 182 H 218 H 11/02/18 11:30 POC Glucose 197 H OUTPATIENT ANTIDIABETIC REGIMEN: * Insulin NPH 26 units qam and 22 units qpm + regular insulin sliding scale * Patient's A1c = 5.8% (05/05/18) * However, this result is likely somewhat unreliable in ESRD patients d/t interactions between the A1c analyzing technique and high levels of urea in ESRD, reduced RBC life span, iron deficiency anemia, and EPO administration. HbA1c > 7.5% in ESRD patient may overestimate the extent of hyperglycemia in ESRD patients. * Patient is also chronically anemic and received blood transfusion on 10/27/18 ASSESSMENT: 11/01/18: * POD #7 from DRIL procedure * Patient scheduled for HD on MWF * Received approximately 2 hours of dialysis yesterday - stopped early due to high venous access pressures and venous limb infiltration * Incomplete dialysis session yesterday may help to explain elevated BSGs this AM * BSGs ranging 161-211 mg/dL yesterday * Hospitalist would prefer less stringent glycemic control (will still aim for BSGs below 180 mg/dL) * Fasting BSG this AM is 218 mg/dL (fasting BSGs remain elevated) * Patient received 34 units of basal insulin yesterday (30 of which was basal) * Patient has very limited appetite at this time 10/27/18 * Patient with steal syndrome secondary to AV fistula is POD #1 from DRIL procedure * Patient's relevant PMH includes ESRD (HD on MWF), history of CVA in 2014, CAD, hypertension, and hyperlipidemia * Patient given half dose of NPH in the morning yesterday prior to surgery and given 20 units of Lantus overnight to cover for dexamethasone-induced hyperglycemia * Dexamethasone 8 mg IV administered preoperatively * BSGs ranging from 117-242 over past 24 hours * Patient received 35 units of insulin yesterday (33 of which were basal) * Hemoglobin of 6.9 today; transfused 2 units of PRBCs * Patient received HD today PLAN FOR INPATIENT GLYCEMIC CONTROL: * Hold outpatient oral diabetes medications * Basal insulin - continue NPH to 15 units BID due to persistently elevated fasting BSGs * Will plan to assess amount of correctional insulin given today and adjust NPH dosing tomorrow * Bolus insulin - Will tighten CF/CR based on persistently elevated BSGs. Will also adjust goal range to 120-160 mg/dL to provide more correctional insulin today. * NovoLog per scale ACHS or Q6hrs while NPO * Goal Range: Low 120 mg/dL - High 160 mg/dL * Correction Factor: 20 mg/dL/unit * Nutritional / Prandial insulin per carb ratio of 1 unit per 8 grams CHO consumed PLAN FOR DISCHARGE: * Reasonable to consider home regimen, provided she has improved appetite at discharge. Otherwise NPH doses may need to be decreased. Will reassess closer to discharge.
--- NOTE | 2018-11-02 15:10 | Hospitalist Progress Note ---
Date of Service November 02, 2018 Assessment & Plan (1) Steal syndrome as complication of dialysis access: Vascular-accessinduced Steal Syndrome (Steal syndrome as complication of dialysis access); s/p Distal Revascularization and Interval Ligation (DRIL) procedure on 10/26/18 -This is a 68-year-old woman with end-stage renal disease on dialysis with previously placed left brachiocephalic AV fistula, and because of left handed pain especially during dialysis, she had angiogram that helped with diagnosis of Vascular -accessinduced Steal Syndrome, and was then admitted to vascular surgery service Dr. Chambers, and had on 10/26/18 a Distal Revascularization and Interval Ligation (DRIL) procedure. Post-op course complicated by hypotension and anemia requiring 2 units of PRBC on 10/27/18. Subsequently, patient developed changes in mental status concerning for acute encephalopathy. -originally under Vascular surgery Service Dr. Chambers and accepted to medicine hospitalist medical service on 10/29/18 due to recent altered mental status concerning for acute encephalopathy (2) Acute metabolic encephalopathy: -At this time, it is unclear as to what the metabolic component of encephalopathy would be as she has been able to get successful dialysis sessions, normal arterial blood gas as seen on 10/29/18, normal TSH, and normal uric acid level on 10/30/18, normal B12 and folic acid levels 10/31/18, normalized leukocytosis since the vascular procedure, blood cultures from 10/29/18 with no growth, and continues to be afebrile -patient is a dialysis patient and does not make urine -no new strokes on CT head on 10/28/18 and brain MRI on 10/29/18 -EEG results reviewed on 10/29/18 "an abnormal EEG in patient in altered mental due to (1) Moderate to severe diffuse background slowing suggestive of a non specific encephalopathy (2) Intermittent triphasic waves which are non specific but can be seen in hepatic and uremic encephalopathies" -normal ammonia level on 10/30/18 -Physician psychiatric assistant noted that patient has not been on CPAP in the hospital for obstructive sleep apnea when under vascular surgery service and CPAP was resumed on 10/29/18 to counter sleep deprivation causes of somnolence -discontinue potentially sedative medications including gabapentin -on 10/30/18 discussed with pharmacy glycemic control on perhaps not to control blood sugars too tightly in case patient's mental status partly due to needing to function at high glucose baselines than what is recommended for tight diabetes control -no acute telemetry events and transferred from telemetry to medical hernandez on 10/30/18 for further monitoring -10/31/18: patient reported to nurse of leg cramp. medical doctor asked nurse to help patient get from bed to chair. nurse attempted but patient kept screaming in pain while laying on bed when being asked to sit up and move. she has some redness of her left thigh. has been on SCDs for DVT prophylaxis. given dilaudid for pain, ultrasound doppler of lower extremities and no deep vein thrombosis, blood cultures were drawn, ESR elevated as 90, CRP elevated as 13.4 , creatinine k empiric IV antibiotics of Zosyn was started, creatinine kinase mildly elevated as 351; RPR levels drawn on 10/31/18 is nonreactive -11/01/18 completed dialysis and somewhat more alert 11/02/18: For the first time since that hospitalist medical doctor has heard patient completing full sentences in her responses. She is currently on the IV antibiotics and sitting up comfortably in a chair. When nurses moved her to chair today, no reported acute pain or screaming. Patient denies acute pain. breathing on room room when asked if anything bothering her, she denies. Still not very active. But her mental status has improved very much compared to recent days. -continue IV antibiotics, the 10/31/18 blood cultures no growth so far but patient's mental status clinically improving with antibiotics -PT/OT evaluations (3) History of CVA (cerebrovascular accident): -History of cerebrovascular accidents were in the past in 2014 CT head 10/28/18 generally benign or old findings: mild age-related involutional changes. Old lacunar infarcts seen within the right basal ganglia. There is also an old small lacunar infarct within the left cerebellar hemisphere, unchanged. Old small right occipital lobe infarct, unchanged Brain MRI on 10/29/18: Multiple old infarcts and chronic small vessel ischemic change. No acute intracranial abnormality -Continue aspirin, plavix -was getting atorvastatin 40 mg daily but will plan on hold atorvastatin for now because of mildly elevated creatinine kinase 351 on 10/31/18 (4) CAD (coronary artery disease): S/p stent to LAD in the past -Continue aspirin, plavix -was getting atorvastatin 40 mg daily but will plan on hold atorvastatin for now because of mildly elevated creatinine kinase 351 on 10/31/18 (5) KUSHAL (obstructive sleep apnea): -Physician psychiatric assistant noted that patient has not been on CPAP in the hospital for obstructive sleep apnea when under vascular surgery service and CPAP was resumed on 10/29/18 to counter sleep deprivation causes of somnolence -oral hygiene q8 hours to prevent dry oral mucosa from CPAP (6) Obesity: Obesity with BMI of 41 -PT/OT evaluations (7) Postoperative anemia due to acute blood loss: -Postop anemia with hgb of 6.9 on 10/27, s/p 2 u prbcs with Hgb improving to above 8 -has Received Epogen with hemodialysis -Hgb 9 as of 10/31/18 (8) ESRD (end stage renal disease) on dialysis: -Dialysis every Thursday/Thursday/Thursday -recent dialysis session on Thursday11/01/18 (9) Hyperkalemia: Hyperkalemia on corrects with dialysis session (10) Diabetes mellitus, type 2: Insulin Dependent Diabetes Mellitus -on 10/30/18 discussed with pharmacy glycemic control on perhaps not to control blood sugars too tightly in case patient's mental status partly due to needing to function at high glucose baselines than what is recommended for tight diabete s control -monitor blood glucose while on insulin with assistance from pharmacy glycemic control DVT Ppx: SCDs Code status: FULL CODE as affirmed by patient's Kendall Urrutia ([phone]; [phone]) discussed with patient's that if patient's over deconditioning and mental status not improving, then possibly may need [facility] facility after hospital stay given encephalopathy and multiple co-morbid conditions, palliative care asked to assist in medical evaluation and further goals of care discussions Subjective For the first time since that hospitalist medical doctor has heard patient completing full sentences in her responses. She is currently on the IV antibiotics and sitting up comfortably in a chair. When nurses moved her to chair today, no reported acute pain or screaming. Patient denies acute pain. breathing on room room when asked if anything bothering her, she denies. Still not very active. But her mental status has improved very much compared to recent days. Physical Exam Constitutional: + obese Eyes: PERRL, conjunctivae normal, anicteric sclerae EOM intact bilaterally ENMT: external ear and nose normal, oropharynx normal Neck: normal visual inspection Respiratory: normal respiratory effort, lungs clear to auscultation Cardiovascular: Rate/Rhythm: regular rate and regular rhythm Gastrointestinal (Abdomen): normal bowel sounds, soft, nontender, no hepatosplenomegaly Musculoskeletal: LEFT UPPER EXTREMITY DIALYSIS ACCESS Neurologic: PERRL, EOMI, accommodation nl, no face palsy, no dysarthria Psychiatric: Orientation: alert and cooperative Results & Data Vital Signs (Past 12 Hours) Vital Signs Temp Pulse Resp BP Pulse Ox 11/02/18 15:02 36.9 C 66 20 138/86 96 11/02/18 09:18 97 11/02/18 07:21 36.6 C 84 20 129/72 95 (1) Diabetes mellitus, type 2 Chronic kidney disease stage: on chronic dialysis Diabetes mellitus complication detail: with chronic kidney disease Diabetes mellitus complication status: with kidney complications Diabetes mellitus alf insulin use: with emt intermediate use Qualified Code(s): E11.22 - Type 2 diabetes mellitus with diabetic chronic kidney disease; N18.6 - End stage renal disease; Z79.4 - long term care administrator (current) use of insulin; Z99.2 - Dependence on renal dialysis (2) CAD (coronary artery disease) Associated angina: without angina Coronary Disease-Associated Artery/Lesion type: [place] artery [place] vs. transplanted heart: [place] heart Qualified Code(s): I25.10 - Atherosclerotic heart disease of [place] coronary artery without angina pectoris
[2018-11-03] MEDS: PIPERACILLIN/TAZOBACTAM 4.5 GM in DEXTROSE 5% 100 ML IV SCH ×2 (02:16→16:15)
[2018-11-03] MEDS ORDERED: EPOETIN ALFA 10,000 UNITS/ML VIAL IV ONE (07:36)
[2018-11-03] MEDS ORDERED: SODIUM CHLORIDE 0.9% 1000ML 1,000 ML IV PRN (07:36)
[2018-11-03] MEDS ORDERED: HEPARIN SOD (PORCINE) 1000 UNIT/ML 10 ML VIAL IV ONE (07:36)
--- NOTE | 2018-11-03 07:36 | Nephrology Progress Note ---
Date of Service November 03, 2018 Assessment & Plan (1) ESRD (end stage renal disease) on dialysis: ESRD on HD MWF using a left UA AVF. She is s/p DRIL 10/26 for steal syndrome. Plan for 11/01 was for 4hrs target UF 3 litres; however pt had high venous access pressures and ultimately venous limb infiltration and so stopped tx 2 hrs early with 1.2 L UF CXR was clear after shortened tx; will reattempt today 4 hr tx If ongoing venous access issues may need to have surgery reevaluate arm versus place TDC (2) Postoperative anemia due to acute blood loss: Patient has chronic anemia of renal failure. This was aggravated by bleeding intra op. She got a unit of blood with HD on 10/27. Will continue Epogen with HD (3) Hypotension: Patient hypotensive and required midodrine pre HD on Friday 10/27. BP better now though still labile; monitor for need for midodrine Subjective up in chair this am and oriented to self. denies pain; rest of ROS is limited. Review of Systems Review of Systems: Unobtainable due to cognitive status Physical Exam Constitutional: well developed, + obese and + altered mental status up in chair on RA Eyes: EOM intact bilaterally ENMT: Ears: no external ear abnormality Nose: no external nose abnormality Mouth: + dry oral mucous membranes (very dry) Neck: no nuchal rigidity Respiratory: normal respiratory effort Auscultation: + diminished lung sounds pt w/ limited ability to cooperate w/ exam Cardiovascular: Rate/Rhythm: regular rate and regular rhythm Extremities: + AV fistula (+ t/b); no edema Gastrointestinal (Abdomen): Inspection/Auscultation: normal bowel sounds Percussion/Palpation: abdomen soft; abdomen nontender Musculoskeletal: Extremities: strength 5/5 throughout Skin: no rashes, warm and dry + pallor Neurologic: lewis, very limited speech, no tremor Psychiatric: Orientation: alert and oriented to person Results & Data Vital Signs (Past 12 Hours) Vital Signs Temp Pulse Resp BP Pulse Ox 11/02/18 23:18 36.8 C 89 20 119/50 L 94 Laboratory Results 10/31/18 07:04 10/31/18 07:04 (1) Hypotension Hypotension type: unspecified hypotension type Qualified Code(s): I95.9 - Hypotension, unspecified
[2018-11-03] MEDS: MICONAZOLE NITRATE POWDER 43 GM TOP SCH ×3 (07:40→21:35)
[2018-11-03] MEDS: SENNA 8.6 MG TAB PO SCH (07:40)
[2018-11-03] MEDS: NEPHROCAPS PO SCH (07:40)
[2018-11-03] MEDS: CLOPIDOGREL BISULFATE 75 MG TAB PO SCH (07:40)
[2018-11-03] MEDS: CHOLECALCIFEROL 1,000 UNITS TAB PO SCH (07:40)
[2018-11-03] MEDS: MAGNESIUM OXIDE 400 MG TAB PO SCH (07:40)
[2018-11-03] MEDS: SEVELAMER HCL 800 MG TABLET PO SCH ×3 (07:40→16:16)
[2018-11-03] MEDS: ASPIRIN 81 MG ECTAB PO SCH (07:40)
[2018-11-03] MEDS: DOCUSATE SODIUM 100 MG CAP PO SCH ×2 (07:47→19:49)
[2018-11-03] MEDS: INSULIN HUMAN NPH SC SCH ×2 (07:50→21:36)
[2018-11-03] MEDS: INSULIN ASPART 100 UNITS/ML 3 ML PEN SC SCH ×4 (07:50→21:35)
[2018-11-03] MEDS ORDERED: IRON SUCROSE 100 MG in SYRINGE 0 ML IV ONE (08:00)
--- NOTE | 2018-11-03 09:54 | Pharmacy Report ---
Pharmacy Glycemic Short Note 2 - Date of Service November 03, 2018 - Glycemic Short BSG Results (Last 24 hours): 11/02/18 11/02/18 11/02/18 11:30 16:29 19:59 POC Glucose 197 H 195 H 173 H 11/03/18 07:28 POC Glucose 189 H OUTPATIENT ANTIDIABETIC REGIMEN: * Insulin NPH 26 units qam and 22 units qpm + regular insulin sliding scale * Patient's A1c = 5.8% (05/05/18) * However, this result is likely somewhat unreliable in ESRD patients d/t interactions between the A1c analyzing technique and high levels of urea in ESRD, reduced RBC life span, iron deficiency anemia, and EPO administration. HbA1c > 7.5% in ESRD patient may overestimate the extent of hyperglycemia in ESRD patients. * Patient is also chronically anemic and received blood transfusion on 10/27/18 ASSESSMENT: 11/03/18: * POD # from DRIL procedure * Patient scheduled for HD on MWF * BSGs elevated yesterday - suspect this could be related to incomplete dialysis session on Thursday due to venous limb infiltration * HD to be reattempted today * BSGs ranging 173-218 mg/dL yesterday (likely related to basal deficiency) * Hospitalist would prefer less stringent glycemic control (will still aim for BSGs below 180 mg/dL) * Fasting BSG this AM is 189 mg/dL (fasting BSGs remain elevated) * Patient received 40 units of basal insulin yesterday (30 of which was basal) * Patient has limited appetite at this time - did eat 25 carbs at breakfast today however 10/27/18 * Patient with steal syndrome secondary to AV fistula is POD #1 from DRIL procedure * Patient's relevant PMH includes ESRD (HD on MWF), history of CVA in 2014, CAD, hypertension, and hyperlipidemia * Hemoglobin of 6.9 today; transfused 2 units of PRBCs * Patient received HD today PLAN FOR INPATIENT GLYCEMIC CONTROL: * Hold outpatient oral diabetes medications * Basal insulin - will increase NPH starting this evening to 17 units BID * Bolus insulin - Continue more aggressive CF/CR for now while increasing basal dose * NovoLog per scale ACHS or Q6hrs while NPO * Goal Range: Low 120 mg/dL - High 160 mg/dL * Correction Factor: 20 mg/dL/unit * Nutritional / Prandial insulin per carb ratio of 1 unit per 8 grams CHO consumed PLAN FOR DISCHARGE: * Reasonable to consider home regimen, provided she has improved appetite at discharge. Otherwise NPH doses may need to be decreased. Will reassess closer to discharge.
[2018-11-03 10:47] LABS: Basophils # (auto) 0.03 K/uL (0-0.2); Basophils % (auto) 0.2 %; Eosinophils # (auto) 0.44 K/uL (0-0.5); Eosinophils % (auto) 3.1 %; Hematocrit (blood only) 26.4 % (37-47); Hemoglobin 8.8 g/dL (12.0-16.0); Immature Granulocytes # (auto) 0.14 K/uL (0.00-0.02); Lymphocytes # (auto) 1.99 K/uL (1.2-3.4); Lymphocytes % (auto) 13.9 %; Mean Corpuscular Hemoglobin 32.4 pg (25-34); Mean Corpuscular Hgb Conc 33.3 g/dL (32-36); Mean Corpuscular Volume 97.1 fL (80-100); Mean Platelet Volume 9.3 fL (7.4-10.4); Monocytes # (auto) 1.04 K/uL (0.11-0.59); Monocytes % (auto) 7.3 %; Neutrophils # (auto) 10.69 K/uL (1.4-6.5); Neutrophils % (auto) 74.5 %; Platelet Count 258 K/uL (130-400); RDW Coefficient of Variation 19.3 % (11.5-14.5); RDW Standard Deviation 67.5 fL (36.4-46.3); Red Blood Count 2.72 M/uL (4.2-5.4); White Blood Count 14.33 K/uL (4.8-10.8)
[2018-11-03] MEDS ORDERED: EPOETIN ALFA 16,000 UNITS in SYRINGE 0 ML IV SCH (11:30)
[2018-11-03 11:34] LABS: Alanine Aminotransferase < 6 U/L (12-78); Albumin Globulin Ratio 0.5 (0.9-2); Albumin Level 2.5 gm/dl (3.4-5.0); Alkaline Phosphatase 108 U/L (45-117); Aspartate Aminotransferase 57 U/L (15-37); BUN Creatinine Ratio 8.4 (10-20); Bilirubin,Total 0.7 mg/dl (0.2-1); Blood Urea Nitrogen 100 mg/dl (7-18); Calcium 9.3 mg/dl (8.5-10.1); Carbon Dioxide 24 mmol/L (21-32); Chloride 91 mmol/L (98-107); Creatinine Clr Calc Pharmacy 4.4 ml/min; Est GFR (African American) 3.3; Est GFR (Non-African American) 2.9; Globulin 4.8 gm/dl (2.5-4.0); Glucose 185 mg/dl (70-99); Potassium 4.9 mmol/L (3.5-5.1); Sodium 131 mmol/L (136-145); Total Protein 7.3 gm/dl (6.4-8.2)
[2018-11-03] MEDS: HEPARIN SOD (PORCINE) 1000 UNIT/ML 10 ML VIAL IV SCH ×3 (11:40→15:24)
[2018-11-03] MEDS: ACETAMINOPHEN 325 MG TAB PO PRN (13:24)
--- NOTE | 2018-11-03 15:21 | Hospitalist Progress Note ---
Date of Service November 03, 2018 Assessment & Plan (1) Steal syndrome as complication of dialysis access: Steal syndrome as complication of dialysis access s/p Distal Revascularization and Interval Ligation (DRIL) procedure on 10/26/18 found as a response to persistent L hand pain, now resolved. Post-op course complicated by hypotension and anemia requiring 2 units of PRBC on 10/27/18. Tolerating HD now. Post-op followup per Vascular Surgery. (2) Acute metabolic encephalopathy: Unclear if completely resolved as patient is very lethargic post- hemodialysis. NPO for safety. Workup during hospitalization included normal lab work including ABG, TSH, uric acid, B12, folate, ammonia, white blood cell count. No gross demonstrated on blood cultures and the patient persistently is afebrile. CT head and MRI brain demonstrated no acute intracranial abnormality. EEG revealed moderate to diffuse background slowing suggestive of nonspecific encephalopathy without additional abnormality. CPAP was resumed on 10/29 and gabapentin was discontinued out of concern for sedative effects. Empiric Zosyn was also added. (3) KUSHAL (obstructive sleep apnea): CPAP HS (4) Postoperative anemia due to acute blood loss: stable after two unit pRBC tranfusion. Cont Procrit per nephro for additional anemia of CKD. (5) CAD (coronary artery disease): Has a history of LAD stent. Stable, no acute chest pain. Continue medical management per home regimen including Lipitor 40 mg daily, Toprol-XL 25 mg every morning, aspirin 81 daily, Plavix 75 daily. MALICK inhibitor contraindicated in setting of ESRD. (6) Obesity: Obesity with BMI of 41 -PT/OT evaluations (7) History of CVA (cerebrovascular accident): Cont ASA, Plavix, Lipitor for secondary prevention of stroke. (8) ESRD (end stage renal disease) on dialysis: Dialysis every Thursday/Thursday/Thursday (9) Diabetes mellitus, type 2: At goal, appreciate pharmacy assistance with glycemic control. Continue insulin replacement with NPH 15 units twice daily (10) DVT prophylaxis: Heparin Full Code Dispo-uncertain at this time. [facility] Subjective pt less responsive to me She is post-dialysis and is attempting to feed her but she continues to fall asleep. I removed the tray and informed he and the nurse that food intake was not the best idea. She is able to open her eyes and follow instructions such as taking a deep breath but with significant prompting. Review of Systems Review of Systems: Unobtainable due to cognitive status Physical Exam Physical Exam: CONSTITUTIONAL: obese, somnolent, vitals as above EYES: normal conjunctivae, no scleral icterus ENT: MMM RESPIRATORY: limited exam as patient unable to clearly follow instructions or move. Clear to auscultation on right lung. Unable to examine left lung. Normal respiratory effort CARDIOVASCULAR: regular rate and rhythm, 3/6 JEFFY, no gallops or rubs, no peripheral edema GASTROINTESTINAL: normal bowel sounds, soft, nontender, no guarding MUSCULOSKELETAL: head is normocephalic and atraumatic, could not be assessed 2/2 somnolence. SKIN: warm and dry NEUROLOGIC: +somnolent, unable to verbalize much or follow instructions clearly. Results & Data Vital Signs (Past 12 Hours) Vital Signs Temp Pulse Pulse Resp BP BP Pulse Ox 11/03/18 13:40 88 113/56 L 11/03/18 13:20 87 105/55 L 11/03/18 13:00 85 85/43 L 11/03/18 12:40 93 H 111/50 L 11/03/18 12:20 84 112/52 L 11/03/18 12:00 87 94/48 L 11/03/18 11:40 81 118/54 L 11/03/18 11:20 79 96/48 L 11/03/18 11:00 77 152/65 H 11/03/18 10:43 74 147/62 H 11/03/18 10:32 36.9 C 11/03/18 09:31 36.7 C 82 16 138/82 95 Laboratory Results Short CBC 11/03/18 Range/Units 10:33 WBC 14.33 H (4.8-10.8) K/uL Hgb 8.8 L (12.0-16.0) g/dL Hct 26.4 L (37-47) % Plt Count 258 (130-400) K/uL BMP 11/03/18 10:33 Sodium 131 L Potassium 4.9 Chloride 91 L Carbon Dioxide 24 BUN 100 H Creatinine 11.90 H* Glucose 185 H Calcium 9.3 Liver Function 11/03/18 Range/Units 10:33 Total Bilirubin 0.7 (0.2-1) mg/dl AST 57 H (15-37) U/L ALT < 6 L (12-78) U/L Alkaline Phosphatase 108 (45-117) U/L Albumin 2.5 L (3.4-5.0) gm/dl Medications Administered Current Inpatient Medications Acetaminophen (Tylenol) 325 mg PO Q6H PRN PRN Reason: Pain or Fever Stop: 11/26/18 09:23 Last Admin: 11/03/18 13:24 Dose: 325 mg Documented by: Aspirin (Ecotrin Ectab) 81 mg PO DAILY [facility] Stop: 11/26/18 08:59 Last Admin: 11/03/18 07:40 Dose: 81 mg Documented by: Atorvastatin Calcium (Lipitor) [facility] [place] [place]: 11/26/18 08:59 Last Admin: 11/01/18 07:44 Dose: 40 mg Documented by: Clopidogrel Bisulfate (Plavix) 75 mg PO QAM [facility] Stop: 11/26/18 09:23 Last Admin: 11/03/18 07:40 Dose: 75 mg Documented by: Dextrose (Dextrose 50%) 25 - 50 ml IV UD PRN; Protocol PRN Reason: Hypoglycemia Protocol Stop: 11/25/18 21:44 Docusate Sodium (Colace) 100 mg PO BID [facility] Stop: 11/26/18 08:59 Last Admin: 11/03/18 07:47 Dose: 100 mg Documented by: Glucagon (Glucagen) 1 mg SQ UD PRN; Protocol PRN Reason: Hypoglycemia Protocol Stop: 11/25/18 21:44 Glucose (Glucose 40%) 15 - 30 gm PO UD PRN; Protocol PRN Reason: Hypoglycemia Protocol Stop: 11/25/18 21:44 Glucose (Dex4 Glucose) 4 - 8 tabs PO UD PRN; Protocol PRN Reason: Hypoglycemia Protocol Stop: 11/25/18 21:44 Hydromorphone HCl (Dilaudid) 0.5 mg IV Q8H PRN PRN Reason: Pain Stop: 11/14/18 17:51 Piperacillin Sod/Tazobactam (Sod 4.5 gm/ Dextrose) 120 mls @ 30 mls/hr IV Q12H [facility]; Protocol Stop: 11/04/18 01:59 Last Infusion: 11/03/18 06:23 Dose: Infused Documented by: Epoetin Oleg 16,000 units/ (Syringe) 0.8 mls @ 1 mls/min IV TODAY@1130 [facility] Stop: 11/03/18 18:00 Last Admin: 11/03/18 11:51 Dose: 1 mls/min Documented by: Insulin Aspart (Novolog Flexpen) 0 units SC ACHS [facility] Stop: 11/25/18 21:59 Last Admin: 11/03/18 14:59 Dose: Not Given Documented by: Insulin Human NPH (Novolin N Nph) 17 units SC BID [facility]; Protocol Stop: 12/01/18 08:59 Magnesium Oxide (Mag-Ox) 400 mg PO DAILY [facility] Stop: 11/26/18 09:23 Last Admin: 11/03/18 07:40 Dose: 400 mg Documented by: Metoprolol Succinate (Toprol Xl) 25 mg PO QAM [facility] Stop: 11/26/18 08:59 Last Admin: 11/02/18 08:02 Dose: 25 mg Documented by: Miconazole Nitrate (Desenex) 1 appln TOP TID [facility] Stop: 11/26/18 09:23 Last Admin: 11/03/18 07:40 Dose: 1 appln Documented by: Miscellaneous (Carbohydrates For Hypoglycemia) 15 - 30 gm PO UD PRN PRN Reason: Hypoglycemia Treatment Stop: 11/25/18 21:44 Miscellaneous Information (Consult Glycemic Management Pharmacy) 1 ea N/A UD PRN PRN Reason: Consult Stop: 11/25/18 21:42 Miscellaneous Information (Consult) 1 ea N/A UD PRN PRN Reason: Consult Stop: 11/30/18 17:48 Nitroglycerin (Nitrostat) 0.4 mg SL UD PRN PRN Reason: CHEST PAIN Stop: 11/25/18 22:10 Polyethylene Glycol (Miralax Powder Packet) 17 gm PO DAILY PRN PRN Reason: Constipation Stop: 11/29/18 10:57 Ranitidine HCl (Zantac) 150 mg PO QAM [facility] Stop: 11/26/18 08:59 Last Admin: 11/03/18 07:40 Dose: 150 mg Documented by: Sennosides (Senokot) 8.6 mg PO QAM [facility] Stop: 11/29/18 10:59 Last Admin: 11/03/18 07:40 Dose: 8.6 mg Documented by: Sevelamer HCl (Renagel) 800 mg PO TIDM [facility] Stop: 11/26/18 07:59 Last Admin: 11/03/18 13:46 Dose: Not Given Documented by: Vitamin B Complex/Folic Acid (Nephrocaps) 1 cap PO QAM [facility] Stop: 11/26/18 08:59 Last Admin: 11/03/18 07:40 Dose: 1 cap Documented by: Vitamin D (Vitamin D3) 5,000 units PO QAM [facility] Stop: 11/26/18 09:23 Last Admin: 11/03/18 07:40 Dose: 5,000 units Documented by: (1) Diabetes mellitus, type 2 Chronic kidney disease stage: on chronic dialysis Diabetes mellitus complication detail: with chronic kidney disease Diabetes mellitus complication status: with kidney complications Diabetes mellitus termite technician insulin use: with usp use Qualified Code(s): E11.22 - Type 2 diabetes mellitus with diabetic chronic kidney disease; N18.6 - End stage renal disease; Z79.4 - manager intermediate (current) use of insulin; Z99.2 - Dependence on renal dialysis (2) CAD (coronary artery disease) Associated angina: without angina Coronary Disease-Associated Artery/Lesion type: [place] artery [place] vs. transplanted heart: [place] heart Qualified Code(s): I25.10 - Atherosclerotic heart disease of [place] coronary artery without angina pectoris
[2018-11-03] MEDS: METOPROLOL SUCC 25MG EXT REL TAB PO SCH (16:13)
[2018-11-03 20:13] LABS: INR 1.1 (0.9-1.1); Prothrombin Time 10.9 Seconds (9.0-12.0)
[2018-11-03] MEDS: HEPARIN SOD 5,000 UNIT/0.5 ML VIAL SQ SCH (21:44)
[2018-11-04] MEDS: HEPARIN SOD 5,000 UNIT/0.5 ML VIAL SQ SCH ×3 (06:07→21:23)
[2018-11-04] MEDS: SENNA 8.6 MG TAB PO SCH (07:50)
[2018-11-04] MEDS: CHOLECALCIFEROL 1,000 UNITS TAB PO SCH (07:50)
[2018-11-04] MEDS: CLOPIDOGREL BISULFATE 75 MG TAB PO SCH (07:50)
[2018-11-04] MEDS: METOPROLOL SUCC 25MG EXT REL TAB PO SCH (07:50)
[2018-11-04] MEDS: SEVELAMER HCL 800 MG TABLET PO SCH ×3 (07:50→16:01)
[2018-11-04] MEDS: MICONAZOLE NITRATE POWDER 43 GM TOP SCH ×3 (07:51→20:19)
[2018-11-04] MEDS: NEPHROCAPS PO SCH (07:51)
[2018-11-04] MEDS: MAGNESIUM OXIDE 400 MG TAB PO SCH (07:51)
[2018-11-04] MEDS: INSULIN ASPART 100 UNITS/ML 3 ML PEN SC SCH ×4 (07:51→21:25)
[2018-11-04] MEDS: ASPIRIN 81 MG ECTAB PO SCH (07:51)
[2018-11-04] MEDS: INSULIN HUMAN NPH SC SCH ×2 (07:53→21:26)
[2018-11-04] MEDS: DOCUSATE SODIUM 100 MG CAP PO SCH ×2 (07:54→21:22)
[2018-11-04 08:27] LABS: Basophils # (auto) 0.06 K/uL (0-0.2); Basophils % (auto) 0.6 %; Eosinophils # (auto) 0.23 K/uL (0-0.5); Eosinophils % (auto) 2.1 %; Hematocrit (blood only) 30.3 % (37-47); Hemoglobin 9.6 g/dL (12.0-16.0); Immature Granulocytes # (auto) 0.48 K/uL (0.00-0.02); Immature Granulocytes % (auto) 4.4 %; Lymphocytes # (auto) 2.72 K/uL (1.2-3.4); Lymphocytes % (auto) 25.2 %; Mean Corpuscular Hemoglobin 31.2 pg (25-34); Mean Corpuscular Hgb Conc 31.7 g/dL (32-36); Mean Corpuscular Volume 98.4 fL (80-100); Mean Platelet Volume 9.7 fL (7.4-10.4); Monocytes # (auto) 1.01 K/uL (0.11-0.59); Monocytes % (auto) 9.4 %; Neutrophils # (auto) 6.29 K/uL (1.4-6.5); Neutrophils % (auto) 58.3 %; Platelet Count 279 K/uL (130-400); RDW Coefficient of Variation 19.4 % (11.5-14.5); RDW Standard Deviation 69.7 fL (36.4-46.3); Red Blood Count 3.08 M/uL (4.2-5.4); White Blood Count 10.79 K/uL (4.8-10.8)
[2018-11-04 08:55] LABS: Albumin Globulin Ratio 0.5 (0.9-2); Albumin Level 2.8 gm/dl (3.4-5.0); BUN Creatinine Ratio 7.5 (10-20); Bilirubin,Total 0.6 mg/dl (0.2-1); Calcium 9.8 mg/dl (8.5-10.1); Creatinine Clr Calc Pharmacy 6.6 ml/min; Est GFR (African American) 5.7; Est GFR (Non-African American) 4.9; Globulin 5.2 gm/dl (2.5-4.0); Magnesium 3.3 mg/dl (1.8-2.4); Phosphorus 7.7 mg/dl (2.5-4.9); Potassium 5.7 mmol/L (3.5-5.1)
[2018-11-04] MEDS ORDERED: PIPERACILLIN/TAZOBACTAM 4.5 GM in DEXTROSE 5% 100 ML IV SCH (09:00)
[2018-11-04] MEDS ORDERED: HEPARIN SOD (PORCINE) 1000 UNIT/ML 10 ML VIAL IV ONE (11:13)
[2018-11-04] MEDS ORDERED: SODIUM CHLORIDE 0.9% 1000ML 1,000 ML IV PRN (11:13)
[2018-11-04] MEDS: ACETAMINOPHEN 325 MG TAB PO SCH ×3 (11:43→23:21)
--- NOTE | 2018-11-04 13:49 | Hospitalist Progress Note ---
Date of Service November 04, 2018 Assessment & Plan (1) Steal syndrome as complication of dialysis access: Steal syndrome as complication of dialysis access s/p Distal Revascularization and Interval Ligation (DRIL) procedure on 10/26/18 found as a response to persistent L hand pain, now resolved. Post-op course complicated by hypotension and anemia requiring 2 units of PRBC on 10/27/18. Tolerating HD now. Post-op followup per Vascular Surgery. (2) Acute metabolic encephalopathy: Resolved. Workup during hospitalization included normal lab work including ABG, TSH, uric acid, B12, folate, ammonia, white blood cell count. No gross demonstrated on blood cultures and the patient persistently is afebrile. CT head and MRI brain demonstrated no acute intracranial abnormality. EEG revealed moderate to diffuse background slowing suggestive of nonspecific encephalopathy without additional abnormality. CPAP was resumed on 10/29 and gabapentin was discontinued out of concern for sedative effects. Empiric Zosyn was also added. She subsequently improved after successive dialysis sessions and time away from surgery and is mentating at baseline now. She was significantly lethargic after dialysis yesterday but was still following instructions. We will stop Zosyn at this time and continue gabapentin per home regimen. (3) KUSHAL (obstructive sleep apnea): CPAP HS (4) Postoperative anemia due to acute blood loss: stable after two unit pRBC tranfusion. Cont Procrit per nephro for additional anemia of CKD. (5) CAD (coronary artery disease): Has a history of LAD stent. Stable, no acute chest pain. Continue medical management per home regimen including Lipitor 40 mg daily, Toprol-XL 25 mg every morning, aspirin 81 daily, Plavix 75 daily. MALICK inhibitor contraindicated in setting of ESRD. (6) Obesity: (7) ESRD (end stage renal disease) on dialysis: -Dialysis every Thursday/Thursday/Thursday -recent dialysis session on Thursday11/01/18 (8) Hyperkalemia: 5.7 this am without evidence of hemolysis. Unclear why this is the case. Notified Neprhology who will order a two hour session today. Repeat am labs. (9) Diabetes mellitus, type 2: At goal, appreciate pharmacy assistance with glycemic control. Continue insulin replacement with NPH 15 units twice daily (10) History of CVA (cerebrovascular accident): Cont ASA, Plavix, Lipitor for secondary prevention of stroke. (11) DVT prophylaxis: Heparin Full Code Dispo-to [facility] likely Thursday Samantha Valdez DO [facility] Hospitalist Subjective Mental status is improved to baseline today She is somewhat tearful indicating she was able to walk with a walker at baseline and she now is max assist. She has limited memory of events over the last week since the surgery and is tearful because of this, also. Stopping zosyn today Review of Systems Review of Systems: All systems reviewed & are unremarkable except as noted in HPI & below Physical Exam Physical Exam: CONSTITUTIONAL: obese, vitals as above, generally well- appearing EYES: normal conjunctivae, no scleral icterus ENT: MMM RESPIRATORY: clear to auscultation bilaterally, no crackles, rales or wheezes, normal respiratory effort CARDIOVASCULAR: regular rate and rhythm, S1 and 2 heard without murmurs, gallops or rubs, no JVD, no peripheral edema GASTROINTESTINAL: normal bowel sounds, soft, nontender, nondistended MUSCULOSKELETAL: moves all extremities equally, significant deconditioning, head is normocephalic and atraumatic SKIN: warm and dry, operative wound in LUE which is well healed around fistula, +palpable thrill. NEUROLOGIC: CN 2-12 grossly intact, normal cognition with occasional episodes of staring, normal speech, no gross focal deficits. PSYCHIATRIC: alert cooperative and oriented Results & Data Vital Signs (Past 12 Hours) Vital Signs Temp Pulse Pulse Resp BP BP Pulse Ox 11/04/18 13:40 69 120/57 L 11/04/18 13:20 36.9 C 68 68 127/59 L 11/04/18 07:09 36.6 C 81 18 132/74 96 Laboratory Results Short CBC 11/04/18 Range/Units 07:59 WBC 10.79 (4.8-10.8) K/uL Hgb 9.6 L (12.0-16.0) g/dL Hct 30.3 L (37-47) % Plt Count 279 (130-400) K/uL BMP 11/04/18 11/04/18 07:59 13:24 Sodium 133 L Potassium 5.7 H D 4.1 D Chloride 93 L Carbon Dioxide 25 BUN 58 H Creatinine 7.65 H* D Glucose 185 H Calcium 9.8 Liver Function 11/04/18 Range/Units 07:59 Total Bilirubin 0.6 (0.2-1) mg/dl AST 53 H (15-37) U/L ALT 6 L (12-78) U/L Alkaline Phosphatase 123 H (45-117) U/L Albumin 2.8 L (3.4-5.0) gm/dl Medications Administered Current Inpatient Medications Acetaminophen (Tylenol) 650 mg PO Q6H [facility] Stop: 12/04/18 11:29 Last Admin: 11/04/18 11:43 Dose: 650 mg Documented by: Aspirin (Ecotrin Ectab) 81 mg PO DAILY [facility] Stop: 11/26/18 08:59 Last Admin: 11/04/18 07:51 Dose: 81 mg Documented by: Atorvastatin Calcium (Lipitor) 40 mg PO QAM [facility] Stop: 11/26/18 08:59 Last Admin: 11/01/18 07:44 Dose: 40 mg Documented by: Clopidogrel Bisulfate (Plavix) 75 mg PO QAM [facility] Stop: 11/26/18 09:23 Last Admin: 11/04/18 07:50 Dose: 75 mg Documented by: Dextrose (Dextrose 50%) 25 - 50 ml IV UD PRN; Protocol PRN Reason: Hypoglycemia Protocol Stop: 11/25/18 21:44 Docusate Sodium (Colace) 100 mg PO BID [facility] Stop: 11/26/18 08:59 Last Admin: 11/04/18 07:54 Dose: 100 mg Documented by: Glucagon (Glucagen) 1 mg SQ UD PRN; Protocol PRN Reason: Hypoglycemia Protocol Stop: 11/25/18 21:44 Glucose (Glucose 40%) 15 - 30 gm PO UD PRN; Protocol PRN Reason: Hypoglycemia Protocol Stop: 11/25/18 21:44 Glucose (Dex4 Glucose) 4 - 8 tabs PO UD PRN; Protocol PRN Reason: Hypoglycemia Protocol Stop: 11/25/18 21:44 Heparin Sodium (Porcine) (Heparin Sodium (Porcine)) 5,000 units SQ Q8 TEMO Stop: 12/03/18 21:59 Last Admin: 11/04/18 06:07 Dose: 5,000 units Documented by: Hydromorphone HCl (Dilaudid) 0.5 mg IV Q8H PRN PRN Reason: Pain Stop: 11/14/18 17:51 Sodium Chloride (Nss 1000ml) 1,000 mls @ 0 mls/hr IV .Q0M PRN PRN Reason: For Hemodialysis Use ONLY Stop: 11/04/18 17:12 Insulin Aspart (Novolog Flexpen) 0 units SC ACHS [facility] Stop: 11/25/18 21:59 Last Admin: 11/04/18 12:01 Dose: 5 units Documented by: Insulin Human NPH (Novolin N Nph) 17 units SC BID [facility]; Protocol Stop: 12/01/18 08:59 Last Admin: 11/04/18 07:53 Dose: 17 units Documented by: Magnesium Oxide (Mag-Ox) 400 mg PO DAILY [facility] Stop: 11/26/18 09:23 Last Admin: 11/04/18 07:51 Dose: 400 mg Documented by: Metoprolol Succinate (Toprol Xl) 25 mg PO QAM [facility] Stop: 11/26/18 08:59 Last Admin: 11/04/18 07:50 Dose: 25 mg Documented by: Miconazole Nitrate (Desenex) 1 appln TOP TID [facility] Stop: 11/26/18 09:23 Last Admin: 11/04/18 07:51 Dose: 1 appln Documented by: Miscellaneous (Carbohydrates For Hypoglycemia) 15 - 30 gm PO UD PRN PRN Reason: Hypoglycemia Treatment Stop: 11/25/18 21:44 Miscellaneous Information (Consult Glycemic Management Pharmacy) 1 ea N/A UD PRN PRN Reason: Consult Stop: 11/25/18 21:42 Nitroglycerin (Nitrostat) 0.4 mg SL UD PRN PRN Reason: CHEST PAIN Stop: 11/25/18 22:10 Polyethylene Glycol (Miralax Powder Packet) 17 gm PO DAILY PRN PRN Reason: Constipation Stop: 11/29/18 10:57 Ranitidine HCl (Zantac) 150 mg PO QAM [facility] Stop: 11/26/18 08:59 Last Admin: 11/04/18 07:50 Dose: 150 mg Documented by: Sennosides (Senokot) 8.6 mg PO QAM [facility] Stop: 11/29/18 10:59 Last Admin: 11/04/18 07:50 Dose: 8.6 mg Documented by: Sevelamer HCl (Renagel) 800 mg PO TIDM [facility] Stop: 11/26/18 07:59 Last Admin: 11/04/18 11:43 Dose: 800 mg Documented by: Vitamin B Complex/Folic Acid (Nephrocaps) 1 cap PO QAM [facility] Stop: 11/26/18 08:59 Last Admin: 11/04/18 07:51 Dose: 1 cap Documented by: Vitamin D (Vitamin D3) 5,000 units PO QAM [facility] Stop: 11/26/18 09:23 Last Admin: 11/04/18 07:50 Dose: 5,000 units Documented by: (1) CAD (coronary artery disease) Coronary Disease-Associated Artery/Lesion type: [place] artery [place] vs. 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
[2018-11-04] MEDS: HEPARIN SOD (PORCINE) 1000 UNIT/ML 10 ML VIAL IV SCH ×3 (14:11→15:57)
--- NOTE | 2018-11-04 15:46 | Palliative Care Progress Note ---
Date of Service November 04, 2018 Assessment & Plan (1) Goals of care, counseling/discussion: -Saw patient this morning, no family at bedside. -She seems to be at her baseline mental status from what was described by her two days ago. Periods of forgetfulness. -Patient has no new complaints, continues to have weakness. -Referral to [facility] for some therapy. Patient and 's goal is for patient to return home. We had discussion about what patient would/would not want if she continues to decline, and they really were not sure. -Patient to remain FULL CODE at this time. Patient's said he would continue this conversation with patient. -Palliative care will sign off officially, but please contact us with any further needs. (2) Acute metabolic encephalopathy: (3) Postoperative anemia due to acute blood loss: (4) Steal syndrome as complication of dialysis access: Subjective Patient feeling okay today. Is upset about her weakness. Review of Systems Review of Systems: Const: + weakness ENMT: No dysphagia Resp: No SOB, no cough Cardio: No chest pain, no edema GI: No abdominal pain, N/V MS: No musculoskeletal pain Physical Exam Constitutional: + ill appearing (chronically) and + obese ENMT: external ear and nose normal, oropharynx normal Neck: + thick neck Respiratory: normal respiratory effort Auscultation: + diminished lung sounds Cardiovascular: Rate/Rhythm: regular rate and regular rhythm Extremities: n o edema Gastrointestinal (Abdomen): Inspection/Auscultation: abdomen normal to inspection and normal bowel sounds Percussion/Palpation: abdomen soft; abdomen nontender Skin: no rashes, warm and dry Neurologic: moves all extremities and awake Psychiatric: Orientation: oriented to person and oriented to place; + not alert (drowsy) and + not oriented to time Results & Data Vital Signs (Past 12 Hours) Vital Signs Temp Pulse Pulse Resp BP BP Pulse Ox 11/04/18 15:00 73 93/51 L 11/04/18 14:40 73 109/50 L 11/04/18 14:20 71 123/55 L 11/04/18 14:00 69 122/55 L 11/04/18 13:40 69 120/57 L 11/04/18 13:20 36.9 C 68 68 127/59 L 11/04/18 07:09 36.6 C 81 18 132/74 96 Time Spent Midlevel 25 minutes with >50% of the time spent at bedside with patient discussing plan of care.
[2018-11-04] MEDS: TRAMADOL HCL 50 MG TABLET PO PRN (18:51)
[2018-11-04] MEDS: GABAPENTIN 300 MG CAP PO SCH (20:19)
[2018-11-05] MEDS: ACETAMINOPHEN 325 MG TAB PO SCH ×2 (05:15→16:57)
[2018-11-05] MEDS: HEPARIN SOD 5,000 UNIT/0.5 ML VIAL SQ SCH ×3 (05:16→21:00)
[2018-11-05 07:50] LABS: Hematocrit (blood only) 27.7 % (37-47); Hemoglobin 8.9 g/dL (12.0-16.0); Mean Corpuscular Hemoglobin 31.6 pg (25-34); Mean Corpuscular Hgb Conc 32.1 g/dL (32-36); Mean Corpuscular Volume 98.2 fL (80-100); Mean Platelet Volume 9.6 fL (7.4-10.4); Nucleated RBC # (auto) 0.02 K/uL (0-0); Nucleated RBC % (auto) 0.2 %; Platelet Count 271 K/uL (130-400); RDW Coefficient of Variation 19.2 % (11.5-14.5); RDW Standard Deviation 68.8 fL (36.4-46.3); Red Blood Count 2.82 M/uL (4.2-5.4); White Blood Count 11.54 K/uL (4.8-10.8)
[2018-11-05] MEDS ORDERED: HEPARIN SOD (PORCINE) 1000 UNIT/ML 10 ML VIAL IV ONE (08:00)
[2018-11-05] MEDS ORDERED: EPOETIN ALFA 10,000 UNITS/ML VIAL IV ONE (08:00)
[2018-11-05] MEDS ORDERED: SODIUM CHLORIDE 0.9% 1000ML 1,000 ML IV PRN (08:00)
[2018-11-05] MEDS: INSULIN ASPART 100 UNITS/ML 3 ML PEN SC SCH ×4 (08:14→21:03)
[2018-11-05 08:18] LABS: Calcium 9.5 mg/dl (8.5-10.1); Creatinine Clr Calc Pharmacy 7.6 ml/min; Est GFR (African American) 6.6; Est GFR (Non-African American) 5.7; Phosphorus 6.6 mg/dl (2.5-4.9); Potassium 4.2 mmol/L (3.5-5.1)
[2018-11-05] MEDS: INSULIN HUMAN NPH SC SCH ×2 (08:22→21:02)
[2018-11-05] MEDS ORDERED: IRON SUCROSE 50 MG in SYRINGE 0 ML IV ONE (08:30)
[2018-11-05 08:59] LABS: Allen Test POS (Pos)
[2018-11-05] MEDS ORDERED: EPOETIN ALFA 14,000 UNITS in SYRINGE 0 ML SQ ONE (09:00)
[2018-11-05 09:01] LABS: Base Excess ABG 1.8 mEq/L (-9-1.8); HCO3 ABG 26 mmol/L (19-24); Oxygen Saturation ABG 88.6 % (90-95); PCO2 ABG 42 mmHg (35-46); PO2 ABG 59 mm/Hg (80-95); pH ABG 7.42 (7.35-7.45)
[2018-11-05] MEDS: HEPARIN SOD (PORCINE) 1000 UNIT/ML 10 ML VIAL IV SCH ×5 (10:37→13:22)
[2018-11-05] MEDS: DOCUSATE SODIUM 100 MG CAP PO SCH ×2 (10:37→21:01)
[2018-11-05] MEDS: SEVELAMER HCL 800 MG TABLET PO SCH ×3 (10:37→16:56)
[2018-11-05] MEDS: MICONAZOLE NITRATE POWDER 43 GM TOP SCH ×3 (10:38→21:01)
[2018-11-05] MEDS ORDERED: ONDANSETRON INJ 2 MG/ML 2 ML VIAL IV PRN (11:35)
[2018-11-05 12:26] LABS: BUN Creatinine Ratio 7.5 (10-20); Calcium 9.8 mg/dl (8.5-10.1); Creatinine Clr Calc Pharmacy 16.3 ml/min; Est GFR (African American) 16.5; Est GFR (Non-African American) 14.2; Potassium 2.7 mmol/L (3.5-5.1)
--- NOTE | 2018-11-05 13:02 | Dialysis Progress Note ---
Date of Service November 05, 2018 Assessment & Plan (1) ESRD (end stage renal disease) on dialysis: ESRD on HD MWF using a left UA AVF. She is s/p DRIL 10/26 for steal syndrome. Plan for 11/01 was for 4hrs target UF 3 litres; however pt had high venous access pressures and ultimately venous limb infiltration and so stopped tx 2 hrs early with 1.2 L UF CXR was clear after shortened tx; will reattempt today 4 hr tx>>>however tx shortened by acute change in MS and rapid response; working dx on this is vagal episode? case d/w Dr Valdez and will have physician recheck k later this afternoon >> K 2.7 is likely artificially low d/t being immediately during /after HD tx (2) Postoperative anemia due to acute blood loss: Patient has chronic anemia of renal failure. This was aggravated by bleeding intra op. She got a unit of blood with HD on 10/27. Will continue Epogen with HD; hgb has been acceptable (3) Labile hypertension: BP has been better but tends to drop at start of dialysis >> this often happens as inpt and OP; no need for midodrine lately but low threshold to restart Present on Admission?: Yes Subjective pt seen on dialysis this am at about 1020; no c/o except that her tx time is too long today and of thirst. no pain, no sob, appropriate answers. approximately one hour later rapid response called for unresponsive episode: pt had c/o N and then abdominal /epigastric pain. then LOC; RR called; moved to 206 Review of Systems Review of Systems: All systems reviewed & are unremarkable except as noted in HPI & below Physical Exam Constitutional: well developed and + obese; no acute distress A& o x 3 at my interview Eyes: EOM intact bilaterally ENMT: Ears: no external ear abnormality Nose: no external nose abnormality Mouth: + dry oral mucous membranes (very dry) Neck: no nuchal rigidity Respiratory: normal respiratory effort Auscultation: + diminished lung sounds Cardiovascular: Rate/Rhythm: regular rate and regular rhythm Extremities: + AV fistula (+ t/b); no edema Gastrointestinal (Abdomen): Inspection/Auscultation: normal bowel sounds Percussion/Palpation: abdomen soft; abdomen nontender Musculoskeletal: Extremities: strength 5/5 throughout Skin: no rashes, warm and dry + pallor Neurologic: lewis, fluent speech, no tremor; still some psychomotor slowing Psychiatric: Orientation: alert, oriented to person, oriented to place and cooperative Results & Data Vital Signs (Past 12 Hours) Vital Signs Temp Pulse Pulse Resp BP BP Pulse Ox 11/05/18 11:36 83 83 126/69 126/69 11/05/18 11:20 82 96/44 L 11/05/18 11:00 80 98/50 L 11/05/18 10:40 75 108/54 L 11/05/18 10:20 73 92/45 L 11/05/18 10:00 75 116/50 L 11/05/18 09:40 71 116/53 L 11/05/18 09:33 36.4 C L 73 73 156/64 H 11/05/18 08:53 72 17 99 11/05/18 07:32 36.5 C 69 20 127/72 99 Laboratory Results 11/05/18 07:32 11/05/18 11:52
[2018-11-05] MEDS: ASPIRIN 81 MG ECTAB PO SCH (13:14)
[2018-11-05] MEDS: SENNA 8.6 MG TAB PO SCH (13:14)
[2018-11-05] MEDS: NEPHROCAPS PO SCH (13:15)
[2018-11-05] MEDS: METOPROLOL SUCC 25MG EXT REL TAB PO SCH (13:15)
[2018-11-05] MEDS: MAGNESIUM OXIDE 400 MG TAB PO SCH (13:15)
[2018-11-05] MEDS: CLOPIDOGREL BISULFATE 75 MG TAB PO SCH (13:16)
[2018-11-05] MEDS: CHOLECALCIFEROL 1,000 UNITS TAB PO SCH (13:22)
--- NOTE | 2018-11-05 13:45 | Critical Care Progress Note ---
Date of Service November 05, 2018 Assessment & Plan (1) Steal syndrome as complication of dialysis access: Evaluated patient for code blue, patient was hemodynamically stable and quickly returned to usual state of health with cessation of dialysis. Differential includes, ischemic cardiac disease, arrhythmia, hypoglycemia and pulmonary issues among others. Checked ECG, blood glucose and vital signs and patient appears well. Deferred to primary team for further workup moving forward (2) Obesity: Supervising Physician Co-Signing Physician Notes Dr. Daniel was resident physician during care of patient. I separately evaluated patient for lou portions of the history and the exam. I was present during the critical portion of medical decision making, and I discussed the case with the resident. I generally agree with the findings and plan. Initially seen in conjunction with Dr. Valdez during CODE BLUE. Patient had adequate blood glucose. Reviewed EKG no obvious signs of ischemia at that time. Care was transitioned to Dr. Valdez. Subjective Responded to a Code blue in the dialysis suite on fourth floor for patient becoming unresponsive. Patient was found to be rousable with good pulse and adequate blood pressure. Checked hemoglobin, ECG and troponins. Patient was in her usual state of mentation and feeling well so we [facility]. Results & Data Vital Signs (Past 12 Hours) Vital Signs Temp Pulse Pulse Resp BP BP Pulse Ox 11/05/18 12:51 82 11/05/18 12:20 36.6 C 80 17 104/50 L 96 11/05/18 11:36 83 83 126/69 126/69 11/05/18 11:20 82 96/44 L 11/05/18 11:00 80 98/50 L 11/05/18 10:40 75 108/54 L 11/05/18 10:20 73 92/45 L 11/05/18 10:00 75 116/50 L 11/05/18 09:40 71 116/53 L 11/05/18 09:33 36.4 C L 73 73 156/64 H 11/05/18 08:53 72 17 99 11/05/18 07:32 36.5 C 69 20 127/72 99 PG Care Time/CCT Total # of Minutes Spent Total Time Spent with Patient: Total time spent is greater than 50% in coordination of care (as documented) at patient's floor/unit and/or counseling patient: Resident Activity Tracking Resident Involvement: Resident Care Provided Care Provided: Adult [facility] Medicine
[2018-11-05 16:49] LABS: BUN Creatinine Ratio 7.6 (10-20); Creatinine Clr Calc Pharmacy 11.7 ml/min; Est GFR (Non-African American) 9.5; Potassium 4.8 mmol/L (3.5-5.1)
--- NOTE | 2018-11-05 18:31 | Hospitalist Progress Note ---
Date of Service November 05, 2018 Assessment & Plan (1) Vasovagal episode: During dialysis, became unresponsive for a few seconds. Code Blue called but patient was alert and oriented on my arrival to the bedside, not in need of resuscitation. Prior to this she had nausea and some severe epigastric tenderness which resolved after coming off of the cycler. Workup including an EKG and troponin were not consistent with cardiac ischemia, and with complete resolution of symptoms off dialysis, symptoms appeared to be related to this. Transferred to telemetry for further monitoring. (2) KUSHAL (obstructive sleep apnea): Daytime somnolence multifactorial including starting scheduled Tylenol yesterday for leg pain, fatigue related to dialysis, and she has not been using her CPAP at night reliably with her home machine continuing to cut off spont aneously. She was somnolent this morning but was easily arousable and was oriented when prompted and able to follow instructions. Her pulse ox was normal and an ABG did not reveal evidence of CO2 retention. Will cont CPAP QHS and with sleeping with our hospital machine moving forward, and use of this should be documented well. (3) Postoperative anemia due to acute blood loss: stable after two unit pRBC tranfusion. Cont Procrit per nephro for additional anemia of CKD. (4) CAD (coronary artery disease): Has a history of LAD stent. Stable, no acute chest pain that is persistent. Continue medical management per home regimen including Lipitor 40 mg daily, Toprol-XL 25 mg every morning, aspirin 81 daily, Plavix 75 daily. MALICK inhibitor contraindicated in setting of ESRD. (5) Obesity: Obesity with BMI of 41, leading to deconditioning. Cont PT/OT (6) History of CVA (cerebrovascular accident): Cont ASA, Plavix, Lipitor for secondary prevention of stroke. (7) Steal syndrome as complication of dialysis access: Steal syndrome as complication of dialysis access s/p Distal Revascularization and Interval Ligation (DRIL) procedure on 10/26/18 found as a response to persistent L hand pain, now resolved. Post-op course complicated by hypotension and anemia requiring 2 units of PRBC on 10/27/18. Tolerating HD now. Post-op followup per Vascular Surgery. (8) ESRD (end stage renal disease) on dialysis: Dialysis every Thursday/Thursday/Thursday (9) Diabetes mellitus, type 2: At goal, appreciate pharmacy assistance with glycemic control. Continue insulin replacement with NPH 15 units twice daily (10) DVT prophylaxis: Heparin Full Code Dispo-uncertain at this time. Will likely keep her through the weekend and do her next HD session on monitor Thursday per Nephro. Samantha Valdez DO [facility] Hospitalist Subjective Somnolent, ROS unobtainable as she continues to fall asleep. PM: responded to code blue called overhead after she became unresponsive in dialysis. On arrival BP was 98 systolic and improved to 124 systolic off the dialysis machine. She was opening her eyes and repsonding appropriately to my questioning. She was diffusely sweating, but her nausea and epigastric pain res olved. She had approx 900cc of ultrafiltrate removed. ICU also responded and assessed the patient. EKG was performed revealing no active ischemia. Labwork was normal aside from a K 2.7, however, this was drawn just after HD was stopped and when later repeated was 4.8. Trop was negative. She was transferred to PCU. Attempted to call patient's but was not able to reach him or to leave a message. Contacted Nephro and discussed the case with her. DO José Miguel Review of Systems Review of Systems: Unobtainable due to cognitive status Physical Exam Physical Exam: CONSTITUTIONAL: obese, vitals as above, generally well-ap pearing, somnolent EYES: normal conjunctivae, no scleral icterus ENT: MMM RESPIRATORY: clear to auscultation bilaterally, no crackles, rales or wheezes, normal respiratory effort CARDIOVASCULAR: regular rate and rhythm, S1 and 2 heard without murmurs, gallops or rubs, no JVD, no peripheral edema GASTROINTESTINAL: normal bowel sounds, soft, nontender, nondistended MUSCULOSKELETAL: limited exam as patient is somnolent. Moving extremities equally when prompted. SKIN: warm and dry, operative wound in LUE which is well healed around fistula, +palpable thrill. Hands are warm to touch. NEUROLOGIC: CN 2-12 grossly intact, normal cognition with occasional episodes of staring, normal speech, no gross focal deficits. PSYCHIATRIC: alert cooperative and oriented Results & Data Vital Signs (Past 12 Hours) Vital Signs Temp Pulse Pulse Resp BP BP Pulse Ox 11/05/18 15:36 36.7 C 76 19 125/44 L 98 11/05/18 12:51 82 11/05/18 12:20 36.6 C 80 17 104/50 L 96 11/05/18 11:36 83 83 126/69 126/69 11/05/18 11:20 82 96/44 L 11/05/18 11:00 80 98/50 L 11/05/18 10:40 75 108/54 L 11/05/18 10:20 73 92/45 L 11/05/18 10:00 75 116/50 L 11/05/18 09:40 71 116/53 L 11/05/18 09:33 36.4 C L 73 73 156/64 H 11/05/18 08:53 72 17 99 11/05/18 07:32 36.5 C 69 20 127/72 99 Laboratory Results Short CBC 11/05/18 Range/Units 07:32 WBC 11.54 H (4.8-10.8) K/uL Hgb 8.9 L (12.0-16.0) g/dL Hct 27.7 L (37-47) % Plt Count 271 (130-400) K/uL BMP 11/05/18 11/05/18 11/05/18 07:32 11:52 16:15 Sodium 134 L 136 136 Potassium 4.2 2.7 L D 4.8 D Chloride 97 L 100 99 Carbon Dioxide 27 23 24 BUN 54 H 24 H D 34 H Creatinine 6.78 H* D 3.17 H D 4.42 H D Glucose 204 H 154 H 155 H Calcium 9.5 9.8 9.0 Cardiac Enzymes 11/05/18 11/05/18 11/05/18 Range/Units 07:32 11:51 11:52 Total Creatine Kinase 397 H 401 H (26-192) U/L Troponin I < 0.015 (0-0.045) ng/ml Medications Administered Current Inpatient Medications Acetaminophen (Tylenol) 650 mg PO Q12H [facility] Stop: 12/05/18 16:59 Last Admin: 11/05/18 16:57 Dose: 650 mg Documented by: Aspirin (Ecotrin Ectab) 81 mg PO DAILY [facility] Stop: 11/26/18 08:59 Last Admin: 11/05/18 13:14 Dose: 81 mg Documented by: Atorvastatin Calcium (Lipitor) 40 mg PO QAM [facility] Stop: 11/26/18 08:59 Last Admin: 11/01/18 07:44 Dose: 40 mg Documented by: Clopidogrel Bisulfate (Plavix) 75 mg PO QAM [facility] Stop: 11/26/18 09:23 Last Admin: 11/05/18 13:16 Dose: 75 mg Documented by: Dextrose (Dextrose 50%) 25 - 50 ml IV UD PRN; Protocol PRN Reason: Hypoglycemia Protocol Stop: 11/25/18 21:44 Docusate Sodium (Colace) 100 mg PO BID [facility] Stop: 11/26/18 08:59 Last Admin: 11/05/18 10:37 Dose: Not Given Documented by: Gabapentin (Neurontin) 300 mg PO HS [facility] Stop: 12/04/18 20:59 Last Admin: 11/04/18 20:19 Dose: 300 mg Documented by: Glucagon (Glucagen) 1 mg SQ UD PRN; Protocol PRN Reason: Hypoglycemia Protocol Stop: 11/25/18 21:44 Glucose (Glucose 40%) 15 - 30 gm PO UD PRN; Protocol PRN Reason: Hypoglycemia Protocol Stop: 11/25/18 21:44 Glucose (Dex4 Glucose) 4 - 8 tabs PO UD PRN; Protocol PRN Reason: Hypoglycemia Protocol Stop: 11/25/18 21:44 Heparin Sodium (Porcine) (Heparin Sodium (Porcine)) 5,000 units SQ Q8 [facility] Stop: 12/03/18 21:59 Last Admin: 11/05/18 14:49 Dose: 5,000 units Documented by: Hydromorphone HCl (Dilaudid) 0.5 mg IV Q8H PRN PRN Reason: Pain Stop: 11/14/18 17:51 Insulin Aspart (Novolog Flexpen) 0 units SC ACHS [facility] Stop: 11/25/18 21:59 Last Admin: 11/05/18 16:56 Dose: 6 units Documented by: Insulin Human NPH (Novolin N Nph) 17 units SC BID [facility]; Protocol Stop: 12/01/18 08:59 Last Admin: 11/05/18 08:22 Dose: 17 units Documented by: Magnesium Oxide (Mag-Ox) 400 mg PO DAILY [facility] Stop: 11/26/18 09:23 Last Admin: 11/05/18 13:15 Dose: 400 mg Documented by: Metoprolol Succinate (Toprol Xl) 25 mg PO QAM [facility] Stop: 11/26/18 08:59 Last Admin: 11/05/18 13:15 Dose: Not Given Documented by: Miconazole Nitrate (Desenex) 1 appln TOP TID [facility] Stop: 11/26/18 09:23 Last Admin: 11/05/18 14:49 Dose: 1 appln Documented by: Miscellaneous (Carbohydrates For Hypoglycemia) 15 - 30 gm PO UD PRN PRN Reason: Hypoglycemia Treatment Stop: 11/25/18 21:44 Miscellaneous Information (Consult Glycemic Management Pharmacy) 1 ea N/A UD PRN PRN Reason: Consult Stop: 11/25/18 21:42 Nitroglycerin (Nitrostat) 0.4 mg SL UD PRN PRN Reason: CHEST PAIN Stop: 11/25/18 22:10 Ondansetron HCl (Zofran) 4 mg IV Q8H PRN PRN Reason: nausea or vomiting Stop: 12/05/18 11:44 Last Admin: 11/05/18 13:21 Dose: 4 mg Documented by: Polyethylene Glycol (Miralax Powder Packet) 17 gm PO DAILY PRN PRN Reason: Constipation Stop: 11/29/18 10:57 Last Admin: 11/05/18 05:20 Dose: 17 gm Documented by: Ranitidine HCl (Zantac) 150 mg PO QAM [facility] Stop: 11/26/18 08:59 Last Admin: 11/05/18 13:16 Dose: 150 mg Documented by: Sennosides (Senokot) 8.6 mg PO QAM [facility] Stop: 11/29/18 10:59 Last Admin: 11/05/18 13:14 Dose: Not Given Documented by: Sevelamer HCl (Renagel) 800 mg PO TIDM [facility] Stop: 11/26/18 07:59 Last Admin: 11/05/18 16:56 Dose: 800 mg Documented by: Tramadol HCl (Ultram) 50 mg PO Q6H PRN PRN Reason: Pain Stop: 12/04/18 18:44 Last Admin: 11/04/18 18:51 Dose: 50 mg Documented by: Vitamin B Complex/Folic Acid (Nephrocaps) 1 cap PO QAM [facility] Stop: 11/26/18 08:59 Last Admin: 11/05/18 13:15 Dose: 1 cap Documented by: (1) CAD (coronary artery disease) Coronary Disease-Associated Artery/Lesion type: [place] artery [place] vs. transplanted heart: [place] heart Associated angina: without angina Qualified Code(s): I25.10 - Atherosclerotic heart disease of [place] coronary artery without angina pectoris (2) Diabetes mellitus, type 2 Diabetes mellitus nursing home insulin use: with nursing home use Diabetes mellitus complication status: with kidney complications Diabetes mellitus complication detail: with chronic kidney disease Chronic kidney disease stage: on chronic dialysis Qualified Code(s): E11.22 - Type 2 diabetes mellitus with diabetic chronic kidney disease; N18.6 - End stage renal disease; Z79.4 - USP (current) use of insulin; Z99.2 - Dependence on renal dialysis
[2018-11-05] MEDS: GABAPENTIN 300 MG CAP PO SCH (21:00)
[2018-11-06] MEDS: ACETAMINOPHEN 325 MG TAB PO SCH ×2 (05:54→16:11)
[2018-11-06] MEDS: HEPARIN SOD 5,000 UNIT/0.5 ML VIAL SQ SCH ×3 (05:55→20:43)
[2018-11-06] MEDS: SEVELAMER HCL 800 MG TABLET PO SCH ×3 (08:22→16:11)
[2018-11-06] MEDS: MAGNESIUM OXIDE 400 MG TAB PO SCH (08:22)
[2018-11-06] MEDS: METOPROLOL SUCC 25MG EXT REL TAB PO SCH (08:22)
[2018-11-06] MEDS: SENNA 8.6 MG TAB PO SCH (08:22)
[2018-11-06] MEDS: CLOPIDOGREL BISULFATE 75 MG TAB PO SCH (08:22)
[2018-11-06] MEDS: NEPHROCAPS PO SCH (08:23)
[2018-11-06] MEDS: ASPIRIN 81 MG ECTAB PO SCH (08:23)
[2018-11-06] MEDS: MICONAZOLE NITRATE POWDER 43 GM TOP SCH ×3 (08:23→20:42)
[2018-11-06] MEDS: INSULIN HUMAN NPH SC SCH ×2 (08:24→20:42)
[2018-11-06] MEDS: INSULIN ASPART 100 UNITS/ML 3 ML PEN SC SCH ×4 (08:25→20:43)
[2018-11-06] MEDS: TRAMADOL HCL 50 MG TABLET PO PRN ×2 (08:27→20:40)
[2018-11-06] MEDS: DOCUSATE SODIUM 100 MG CAP PO SCH ×2 (08:27→20:40)
--- NOTE | 2018-11-06 10:13 | Nephrology Progress Note ---
Date of Service November 06, 2018 Assessment & Plan (1) ESRD (end stage renal disease) on dialysis: ESRD on HD MWF using a left UA AVF. She is s/p DRIL 10/26 for steal syndrome. Plan for 11/01 was for 4hrs target UF 3 litres; however pt had high venous access pressures and ultimately venous limb infiltration and so stopped tx 2 hrs early with 1.2 L UF Patient had dialysis yesterday but had episode of syncope towards the end of dialysis. She feels better this morning. Electrolytes are stable with no signs of volume overload. No indication for dialysis today. Next dialysis will be Thursday. If patient is discharged she can continue dialysis at the outpatient center. (2) Postoperative anemia due to acute blood loss: Patient has chronic anemia of renal failure. This was aggravated by bleeding intra op. She got a unit of blood with HD on 10/27. Will continue Epogen with HD; hgb has been acceptable (3) Labile hypertension: BP has been better but tends to drop at start of dialysis >> this often h appens as inpt and OP; no need for midodrine lately but low threshold to restart Subjective Patient seen in follow-up for ESRD. She had episode of syncope yesterday while on dialysis. No confusion today no dizziness. She is complaining of cramps in the left leg. No shortness of breath. No vomiting or diarrhea. Review of Systems Review of Systems: All systems reviewed & are unremarkable except as noted in HPI & below Physical Exam Physical Exam: General exam: Appears comfortable, no acute distress HEENT: Pupils are equal and reactive to light Neck: No JVD, neck is supple trachea is midline Respiratory system: Clear breath sounds bilaterally. Gastrointestinal: Abdomen is soft, non distended, non tender, bowel sounds are present CVS: Regular rate and rhythm. No murmurs, rubs or gallops Musculoskeletal: No joint or muscle tenderness Extremities: Non tender, no edema, peripheral pulses are present Neuro: Oriented, no tremors, no focal neurological deficits Skin: No rashes Access: Left upper arm AV fistula with good bruit Results & Data Vital Signs (Past 12 Hours) Vital Signs Temp Pulse Pulse Resp BP Pulse Ox 11/06/18 08:30 72 11/06/18 07:47 36.3 C L 71 16 117/39 L 100 11/06/18 04:18 36.6 C 75 18 110/46 L 97 11/05/18 23:34 37.4 C 79 19 105/43 L 97 Laboratory Results Laboratory Results - last 24 hr 11/05/18 11/05/18 11/05/18 11:51 11:52 11:52 Sodium 136 Potassium 2.7 L D Chloride 100 Carbon Dioxide 23 Anion Gap 13.0 H BUN 24 H D Creatinine 3.17 H D Est Cr Clr Drug Dosing 16.3 Est GFR ( Amer) 16.5 Est GFR (Non-Af Amer) 14.2 BUN/Creatinine Ratio 7.5 L Glucose 154 H POC Glucose 143 H Calcium 9.8 Total Creatine Kinase 401 H Troponin I < 0.015 Specimen Hemolysis 11/05/18 11/05/18 11/05/18 16:15 16:46 20:44 Sodium 136 Potassium 4.8 D Chloride 99 Carbon Dioxide 24 Anion Gap 13.0 H BUN 34 H Creatinine 4.42 H D Est Cr Clr Drug Dosing 11.7 Est GFR ( Amer) 11.0 Est GFR (Non-Af Amer) 9.5 BUN/Creatinine Ratio 7.6 L Glucose 155 H POC Glucose 152 H 143 H Calcium 9.0 Total Creatine Kinase Troponin I Specimen Hemolysis 11/06/18 07:35 Sodium Potassium Chloride Carbon Dioxide Anion Gap BUN Creatinine Est Cr Clr Drug Dosing Est GFR ( Amer) Est GFR (Non-Af Amer) BUN/Creatinine Ratio Glucose POC Glucose 125 H Calcium Total Creatine Kinase Troponin I Specimen Hemolysis
--- NOTE | 2018-11-06 13:20 | Hospitalist Progress Note ---
Date of Service November 06, 2018 Assessment & Plan (1) KUSHAL (obstructive sleep apnea): CPAP QHS (2) Postoperative anemia due to acute blood loss: stable after two unit pRBC tranfusion. Cont Procrit per nephro for additional anemia of CKD. (3) CAD (coronary artery disease): Has a history of LAD stent. Stable, no acute chest pain. Telemetry reviewed with no events overnight. Continue medical management per home regimen including Lipitor 40 mg daily, Toprol-XL 25 mg every morning, aspirin 81 daily, Plavix 75 daily. MALICK inhibitor contraindicated in setting of ESRD. (4) Obesity: Obesity with BMI of 41, leading to deconditioning. Cont PT/OT (5) History of CVA (cerebrovascular accident): Cont ASA, Plavix, Lipitor held in setting of elevated CK. (6) Steal syndrome as complication of dialysis access: Steal syndrome as complication of dialysis access s/p Distal [place] scularization and Interval Ligation (DRIL) procedure on 10/26/18 found as a response to persistent L hand pain, now resolved. Post-op course complicated by hypotension and anemia requiring 2 units of PRBC on 10/27/18. Tolerating HD now. Post-op followup per Vascular Surgery. (7) ESRD (end stage renal disease) on dialysis: Dialysis every Thursday/Thursday/Thursday. We will plan to dialyze her on monitor, therefore, we will keep her on telemetry through the weekend. (8) Diabetes mellitus, type 2: At goal, appreciate pharmacy assistance with glycemic control. Continue insulin replacement with NPH 15 units twice daily (9) DVT prophylaxis: Heparin Full Code Dispo-uncertain at this time. Will likely keep her through the weekend and do her next HD session on monitor Thursday per Nephro. Samantha Valdez DO [facility] Hospitalist Subjective Denies episodes of pain or chest pain overnight Telemetry was reviewed and revealed sinus rhythm without events overnight Eating well Afebrile Minimal movement Review of Systems Review of Systems: All systems reviewed & are unremarkable except as noted in HPI & below Physical Exam Physical Exam: CONSTITUTIONAL: obese, vitals as above, generally well- appearing EYES: normal conjunctivae, no scleral icterus ENT: MMM RESPIRATORY: clear to auscultation bilaterally, no crackles, rales or wheezes, normal respiratory effort CARDIOVASCULAR: regular rate and rhythm, S1 and 2 heard without murmurs, gallops or rubs, no JVD, no peripheral edema GASTROINTESTINAL: normal bowel sounds, soft, nontender, nondistended MUSCULOSKELETAL: limited exam as patient is somnolent. Moving extremities equally when prompted. SKIN: warm and dry, operative wound in LUE which is well healed around fistula, +palpable thrill. Hands are warm to touch. NEUROLOGIC: CN 2-12 grossly intact, normal cognition , normal speech, no gross focal deficits. PSYCHIATRIC: alert cooperative and oriented Results & Data Vital Signs (Past 12 Hours) Vital Signs Temp Pulse Pulse Resp BP Pulse Ox 11/06/18 11:22 36.8 C 73 17 113/36 L 96 11/06/18 08:30 72 11/06/18 07:47 36.3 C L 71 16 117/39 L 100 11/06/18 04:18 36.6 C 75 18 110/46 L 97 Laboratory Results BMP 11/05/18 16:15 Sodium 136 Potassium 4.8 D Chloride 99 Carbon Dioxide 24 BUN 34 H Creatinine 4.42 H D Glucose 155 H Calcium 9.0 Medications Administered Current Inpatient Medications Acetaminophen (Tylenol) 650 mg PO Q12H [facility] Stop: 12/05/18 16:59 Last Admin: 11/06/18 05:54 Dose: 650 mg Documented by: Aspirin (Ecotrin Ectab) 81 mg PO DAILY [facility] Stop: 11/26/18 08:59 Last Admin: 11/06/18 08:23 Dose: 81 mg Documented by: Atorvastatin Calcium (Lipitor) 40 mg PO QAM [facility] Stop: 11/26/18 08:59 Last Admin: 11/01/18 07:44 Dose: 40 mg Documented by: Clopidogrel Bisulfate (Plavix) 75 mg PO QAM [facility] Stop: 11/26/18 09:23 Last Admin: 11/06/18 08:22 Dose: 75 mg Documented by: Dextrose (Dextrose 50%) 25 - 50 ml IV UD PRN; Protocol PRN Reason: Hypoglycemia Protocol Stop: 11/25/18 21:44 Docusate Sodium (Colace) 100 mg PO BID [facility] Stop: 11/26/18 08:59 Last Admin: 11/06/18 08:27 Dose: 100 mg Documented by: Gabapentin (Neurontin) 300 mg PO HS [facility] Stop: 12/04/18 20:59 Last Admin: 11/05/18 21:00 Dose: 300 mg Documented by: Glucagon (Glucagen) 1 mg SQ UD PRN; Protocol PRN Reason: Hypoglycemia Protocol Stop: 11/25/18 21:44 Glucose (Glucose 40%) 15 - 30 gm PO UD PRN; Protocol PRN Reason: Hypoglycemia Protocol Stop: 11/25/18 21:44 Glucose (Dex4 Glucose) 4 - 8 tabs PO UD PRN; Protocol PRN Reason: Hypoglycemia Protocol Stop: 11/25/18 21:44 Heparin Sodium (Porcine) (Heparin Sodium (Porcine)) 5,000 units SQ Q8 [facility] Stop: 12/03/18 21:59 Last Admin: 11/06/18 05:55 Dose: 5,000 units Documented by: Hydromorphone HCl (Dilaudid) 0.5 mg IV Q8H PRN PRN Reason: Pain Stop: 11/14/18 17:51 Insulin Aspart (Novolog Flexpen) 0 units SC ACHS [facility] Stop: 11/25/18 21:59 Last Admin: 11/06/18 12:04 Dose: 5 units Documented by: Insulin Human NPH (Novolin N Nph) 17 units SC BID [facility]; Protocol Stop: 12/01/18 08:59 Last Admin: 11/06/18 08:24 Dose: 17 units Documented by: Magnesium Oxide (Mag-Ox) 400 mg PO DAILY [facility] Stop: 11/26/18 09:23 Last Admin: 11/06/18 08:22 Dose: 400 mg Documented by: Metoprolol Succinate (Toprol Xl) 25 mg PO QAM [facility] Stop: 11/26/18 08:59 Last Admin: 11/06/18 08:22 Dose: 25 mg Documented by: Miconazole Nitrate (Desenex) 1 appln TOP TID [facility] Stop: 11/26/18 09:23 Last Admin: 11/06/18 08:23 Dose: 1 appln Documented by: Miscellaneous (Carbohydrates For Hypoglycemia) 15 - 30 gm PO UD PRN PRN Reason: Hypoglycemia Treatment Stop: 11/25/18 21:44 Miscellaneous Information (Consult Glycemic Management Pharmacy) 1 ea N/A UD PRN PRN Reason: Consult Stop: 11/25/18 21:42 Nitroglycerin (Nitrostat) 0.4 mg SL UD PRN PRN Reason: CHEST PAIN Stop: 11/25/18 22:10 Ondansetron HCl (Zofran) 4 mg IV Q8H PRN PRN Reason: nausea or vomiting Stop: 12/05/18 11:44 Last Admin: 11/05/18 13:21 Dose: 4 mg Documented by: Polyethylene Glycol (Miralax Powder Packet) 17 gm PO DAILY PRN PRN Reason: Constipation Stop: 11/29/18 10:57 Last Admin: 11/05/18 05:20 Dose: 17 gm Documented by: Ranitidine HCl (Zantac) 150 mg PO QAM [facility] Stop: 11/26/18 08:59 Last Admin: 11/06/18 08:22 Dose: 150 mg Documented by: Sennosides (Senokot) 8.6 mg PO QAM [facility] Stop: 11/29/18 10:59 Last Admin: 11/06/18 08:22 Dose: 8.6 mg Documented by: Sevelamer HCl (Renagel) 800 mg PO TIDM [facility] Stop: 11/26/18 07:59 Last Admin: 11/06/18 12:05 Dose: 800 mg Documented by: Tramadol HCl (Ultram) 50 mg PO Q6H PRN PRN Reason: Pain Stop: 12/04/18 18:44 Last Admin: 11/06/18 08:27 Dose: 50 mg Documented by: Vitamin B Complex/Folic Acid (Nephrocaps) 1 cap PO QAM [facility] Stop: 11/26/18 08:59 Last Admin: 11/06/18 08:23 Dose: 1 cap Documented by: (1) Diabetes mellitus, type 2 Chronic kidney disease stage: on chronic dialysis Diabetes mellitus complication detail: with chronic kidney disease Diabetes mellitus complication status: with kidney complications Diabetes mellitus longterm insulin use: with longterm use Qualified Code(s): E11.22 - Type 2 diabetes mellitus with diabetic chronic kidney disease; N18.6 - End stage renal disease; Z79.4 - [facility] (current) use of insulin; Z99.2 - Dependence on renal dialysis (2) CAD (coronary artery disease) Associated angina: without angina Coronary Disease-Associated Artery/Lesion type: [place] artery [place] vs. transplanted heart: [place] heart Qualified Code(s): I25.10 - Atherosclerotic heart disease of [place] coronary artery without angina pectoris
[2018-11-06] MEDS: GABAPENTIN 300 MG CAP PO SCH (20:40)
[2018-11-07] MEDS: ACETAMINOPHEN 325 MG TAB PO SCH (04:49)
[2018-11-07] MEDS: HEPARIN SOD 5,000 UNIT/0.5 ML VIAL SQ SCH ×2 (06:28→14:22)
[2018-11-07] MEDS: SENNA 8.6 MG TAB PO SCH (08:12)
[2018-11-07] MEDS: MAGNESIUM OXIDE 400 MG TAB PO SCH (08:12)
[2018-11-07] MEDS: SEVELAMER HCL 800 MG TABLET PO SCH ×2 (08:12→12:24)
[2018-11-07] MEDS: METOPROLOL SUCC 25MG EXT REL TAB PO SCH (08:12)
[2018-11-07] MEDS: ASPIRIN 81 MG ECTAB PO SCH (08:12)
[2018-11-07] MEDS: CLOPIDOGREL BISULFATE 75 MG TAB PO SCH (08:12)
[2018-11-07] MEDS: NEPHROCAPS PO SCH (08:12)
[2018-11-07] MEDS: MICONAZOLE NITRATE POWDER 43 GM TOP SCH ×2 (08:14→14:22)
[2018-11-07] MEDS: INSULIN ASPART 100 UNITS/ML 3 ML PEN SC SCH ×2 (08:14→12:23)
[2018-11-07] MEDS: DOCUSATE SODIUM 100 MG CAP PO SCH (08:14)
[2018-11-07] MEDS ORDERED: INSULIN HUMAN NPH SC SCH (09:00)
--- NOTE | 2018-11-07 11:15 | Pharmacy Report ---
Pharmacy Glycemic Short Note 2 - Date of Service November 07, 2018 - Glycemic Short BSG Results (Last 24 hours): 11/06/18 11/06/18 11/06/18 11:20 16:26 19:51 POC Glucose 198 H 129 H 155 H 11/07/18 07:14 POC Glucose 160 H OUTPATIENT ANTIDIABETIC REGIMEN: * Insulin NPH 26 units qam and 22 units qpm + regular insulin sliding scale * Patient's A1c = 5.8% (05/05/18) * However, this result is likely somewhat unreliable in ESRD patients d/t interactions between the A1c analyzing technique and high levels of urea in ESRD, reduced RBC life span, iron deficiency anemia, and EPO administration. HbA1c > 7.5% in ESRD patient may overestimate the extent of hyperglycemia in ESRD patients. * Patient is also chronically anemic and received blood transfusion on 10/27/18 ASSESSMENT: 11/03/18: * POD # 12 from DRIL procedure * BSGs ranging 125 - 198 mg/dL yesterday. Pt received 48 units of insulin (34 units basal/14 units bolus) * Hospitalist would prefer less stringent glycemic control (will still aim for BSGs below 180 mg/dL) * Fasting BSG of 160 mg/dL is above goal. Will slightly increase NPH dosing by 11%. * Post prandial BSGs are acceptable. No changes to Novolog coverage. PLAN FOR INPATIENT GLYCEMIC CONTROL: * Basal insulin - increase * NPH 19 units SQ BID * Bolus insulin * NovoLog per scale ACHS or Q6hrs while NPO * Goal Range: Low 120 mg/dL - High 160 mg/dL * Correction Factor: 20 mg/dL/unit * Nutritional / Prandial insulin per carb ratio of 1 unit per 7 grams CHO consumed PLAN FOR DISCHARGE: * Reasonable to consider home regimen, provided she has improved appetite at discharge. Otherwise NPH doses may need to be decreased. Will reassess closer to discharge.
--- NOTE | 2018-11-07 11:32 | Discharge Summary ---
Date of Service November 07, 2018 Admission HPI Per Admitting Provider [place] [address] History & Physical Report Signed Patient: EDDY URRUTIA Admit Date: 09/14/18 MR#: [id number] Att Phy: Gregory Chambers M.D. Acct ID:[id number] Pippa Phy: Yanet Golden MD Date: 1950 Fam Phy: Age: 68 Location: [facility] Sex: F Room/Bed: cc: ~ *NOTICE TO RECEIVING DEMOCRAT/AGENCY This information is strictly Confidential and protected under [place] law. [place] law prohibits you from making any further disclosure of this information unless further disclosure is expressly permitted by the written consent of the person to whom it pertains or is authorized by law. A general authorization for the release of medical or other information is not sufficient for this purpose. Hospital accepts no responsibility if the information is made available to any other person, INCLUDING THE PATIENT. Date of Service October 01, 2018 Assessment & Plan (1) Dialysis AV fistula malfunction: Due to the monophasic flow in the arm seen on imaging, patient is admitted for a left upper extremity arteriogram. The fistula will also be evaluated at that time. I have discussed the risks options and benefits of the procedure with the patient. The patient understands the risks options and benefits and agrees to the procedure. History of Present Illness Chief Complaint: Malfunctioning fistula Primary Care Provider: Yanet Golden MD Ms. Urrutia is known to have a left brachiocephalic AV fistula. This was created in August of 2016. The patient has been dialyzing through her fistula since last year. According to the patient, they are not having any trouble dialyzing her. The patient states that she has chronic weakness and numbness in her left hand. She also occasionally has some pain. She had previously been evaluated by neurology according to the patient, and she was told that she has carpal tunnel syndrome as well as a component of neuropathy in that left hand. A few weeks ago, she suffered a rather sudden onset of swelling in her left hand with a little bit on her forearm according to the patient. She went to her local emergency room where they evaluated her. Because she has a fistula in the arm, the staff there ordered ultrasounds, which did not demonstrate any particular abnormalities, although they did wish to have her followed up here due to her having the fistula there. The patient states that the swelling that she previously had when going to the emergency room has resolved. She did have an Eliecer wrap on her hand from the emergency room which was only on for a few days. After taking it off, she no longer had any swelling. The patient states that she chronically is unable to straighten out her left fingers, but that this has been a problem for a number of years. She denies any wounds or discoloration of her left hand. She states that it occasionally feels cool and is chronically weak. Of note, the patient also has a previous fracture of her left shoulder in the remote past, which did not heal well and has some weakness and decreased range of motion in that right arm as well. IMAGING: An ultrasound performed of her left arm at [facility] during her recent ER visit demonstrates monophasic flow arterially throughout her left arm. Allergies Allergy/AdvReac Type Severity Reaction Status Date / Time codeine Allergy Intermediate hives Verified 09/15/18 08:44 pioglitazone Allergy Intermediate Rash/Fluid Verified 09/15/18 08:44 retention morphine Allergy Mild HIVES Verified 09/15/18 08:44 Home Medications Home Medications Medication Instructions Recorded Confirmed Type Novolin N NPH U-100 Insulin 22 unit SUBCUT PM 10/29/17 09/15/18 History Novolin N NPH U-100 Insulin 26 unit SUBCUT QAM 10/29/17 09/15/18 History aspirin 81 mg PO DAILY 10/29/17 09/15/18 History atorvastatin 40 mg PO DAILY 10/29/17 09/15/18 History cholecalciferol (vitamin D3) 5,000 unit PO DAILY 10/29/17 09/15/18 History [Vitamin D3] clopidogrel [Plavix] 75 mg PO DAILY 10/29/17 09/15/18 History gabapentin 300 mg PO HS 10/29/17 09/15/18 History magnesium oxide 400 mg PO DAILY 10/29/17 09/15/18 History nitroglycerin [Nitrostat] 0.4 mg SUBLINGUAL UD PRN 10/29/17 09/15/18 History ranitidine HCl 150 mg PO DAILY 10/29/17 09/15/18 History acetaminophen [Tylenol] 650 mg PO QID PRN 05/04/18 09/15/18 History sevelamer carbonate [Renvela] 800 mg PO TIDM 05/04/18 09/15/18 History Nephrocaps 1 cap PO DAILY 05/27/18 09/15/18 History docusate sodium 100 mg PO BID 05/27/18 09/15/18 History insulin regular human 1 sliding scale dose SUBCUT 08/29/18 09/15/18 History USEASDIRECTD metoprolol succinate [Toprol XL] 25 mg PO QPM 08/29/18 09/15/18 History miconazole nitrate 1 applic TOPICAL TID 08/29/18 09/15/18 History Past Med/Surg History Social History Preferred Language: Telugu Communication Ability: Effective 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 Beliefs That Will Affect Care: None marital status: Current Living Situation: Spouse Current Living Situation Comment: Patient currently resides at [facility], has who lives at their ruma Other Information That Helps Us Care for You: No Feels Safe at Home: Yes Safety Concerns: Feels Safe At This Time Smoking Status: Never smoker Do You Dip or Chew Tobacco: No ; Second Hand Exposure: No ; Hx Alcohol Use: No Hx Substance Use: No Review of Systems All systems reviewed & are unremarkable except as noted in HPI & below Physical Exam Physical Exam: Constitutional: In general, patient is an obese, chronically ill-appearing, middle-aged female in no acute distress. She is in a wheelchair, nonambulatory presently. Her left upper arm AV fistula has a good thrill and bruit. Her radial and ulnar pulses in the left wrist are not palpable. Her left fingers are slightly cool to touch, but they do have capillary refill and do have a decreased range of motion and strength of 3/5. Lungs are clear. Cor has a RRR. Abd exam is benign. She has +2 femoral pulses Signed By: <Electronically signed by Gregory Chambers MD> 10/01/18 0610 Created: 10/01/18 0605 The status of this report is Signed. Draft = Not yet reviewed or approved by Medical Physician. Signed = Reviewed and approved by Medical Physician. Admission Exam Per Admitting Provider Physical Exam: Constitutional: In general, patient is an obese, chronically ill-appearing, middle-aged female in no acute distress. She is in a wheelchair, nonambulatory presently. Her left upper arm AV fistula has a good thrill and bruit. Her radial and ulnar pulses in the left wrist are not palpable. Her left fingers are slightly cool to touch, but they do have capillary refill and do have a decreased range of motion and strength of 3/5. Lungs are clear. Cor has a RRR. Abd exam is benign. 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) s/p Distal Revascularization and Interval Ligation (DRIL) procedure on 10/26/18 Anemia Acute metabolic encephalopathy ESRD (end stage renal disease) on dialysis KUSHAL (obstructive sleep apnea) Obesity with BMI of 41 Insulin Dependent Diabetes Mellitus Discharge Data Allergies Allergy/AdvReac Type Severity Reaction Status Date / Time codeine Allergy Intermediate hives Verified 10/26/18 07:10 pioglitazone Allergy Intermediate Rash/Fluid Verified 10/26/18 07:10 retention morphine Allergy Mild HIVES Verified 10/26/18 07:10 Consultations 10/26/18 17:21 Consult Nephrology Routine 10/27/18 09:24 Consult Nephrology Routine 10/28/18 09:09 Consult Neurology Routine 10/29/18 07:25 Consult Hospitalist Routine 11/01/18 11:11 Consult Palliative Care Routine Procedures Performed Operation Date: 10/26/18 08:50 Actual Procedures p Distal Revascularization Interval with Ligation Left Arm(Left) - Gregory Chambers MD Ordered Studies 10/26/18 07:18 EV angio arteriovenous shunt Routine 10/27/18 09:42 US hemodialysis access Stat 10/28/18 15:17 CT head/brain wo con Routine 10/29/18 17:00 MR brain wo con Routine 10/31/18 18:42 US venous doppler LE BI Stat Hospital Course (1) Steal syndrome as complication of dialysis access: (2) ESRD (end stage renal disease) on dialysis: (3) KUSHAL (obstructive sleep apnea): (4) Postoperative anemia due to acute blood loss: (5) CAD (coronary artery disease): (6) Diabetes mellitus, type 2: (7) Obesity: (8) History of CVA (cerebrovascular accident): 68-year-old female with end-stage renal disease on dialysis developed left hand pain and had cool fingers to touch especially during dialysis sessions, and was found to have a vascular access induced steal syndrome. On 10/26 she underwent a distal revascularization and interval ligation procedure with vascular surgery. However, she subsequently developed confusion. Her postoperative course was also complicated by hypotension and anemia requiring two units of packed red blood cells on 10/27. The medicine service was consulted on 10/29. The patient was tolerating dialysis successfully postoperatively, so it was unclear if a metabolic or toxic encephalopathy would be present despite this. A UTI was considered but the patient does not make urine. Work-up for confusion included a normal TSH, uric acid level, B12 and folic acid level, and blood cultures revealing no growth. She continued to remain hemodynamically stable and afebrile. She had no evidence of leukocytosis on lab work. Neurology was consulted and performed an EEG revealing moderate to diffuse background slowing suggestive of a nonspecific encephalopathy with intermittent triphasic waves which can be seen in hepatic and uremic encephalopathies. She had a normal ammonia level on 10/30. She was found to be noncompliant with CPAP in the hospital which was resumed on 10/29 and appeared to help somewhat with her somnolence. Sedative medications including gabapentin were initially discontinued, and monitoring on telemetry was unrevealing for arrhythmia. She did have some intermittent leg cramps but no evidence of DVT on ultrasound Doppler. A CT of the head was performed on 10/28 revealing no acute intracranial changes. A brain MRI was performed on 10/29 revealing multiple old infarcts and chronic small vessel ischemic change with no acute intracranial abnormality. Aspirin and Plavix were continued in the setting of known heart disease and h/o CVA. Atorvastatin was held because of an elevated CK that was persistently elevated. This can be restarted with primary care as outpatient. It is uncertain if her leg cramps were associated with the Lipitor use or related to hemodialysis with the shifts in fluid. Her anemia remained stable after transfusion of two units packed red blood cells and she continued to receive Epogen with hemodialysis. The next few days her her cognitive status waxed and waned with intermittent somnolence for unclear reasons. She continued to remain oriented and arousable, however. On the morning of 11/05 she looked especially somnolent and ABG did not reveal any evidence of CO2 retention. She was oxygenating at baseline and she was arousable and oriented. She subsequently went to dialysis and began to feel nauseous after approximately one hour on the cycler. Her left hand was never an issue. She then developed epigastric pain and extensive diaphoresis. Her blood pressure dropped 20 points systolic which is typical for her during her sessions, and this occurred at the start of the session, prior to any onset of symptoms. She subsequently became unresponsive for less than a minute and a CODE BLUE was called. Upon arrival to the bedside she was awake and oriented. Epigastric pain and symptoms resolved just after being taken off the dialysis machine. She subsequently had no evidence of cardiac injury on lab work or EKGs. Lab work was otherwise unremarkable. She was transferred to the PCU out of precaution and review of telemetry throughout the remainder of the hospitalization revealed a sinus rhythm with no evidence of arrhythmias. Her vital signs remained stable and afebrile and her mental status remained consistently at baseline and clear. At time of discharge a [id number] examination was performed revealing hemodynamically stable and afebrile patient who was mentating at baseline. She was significantly deconditioned for her prolonged hospitalization and was requiring maximum assistance to ambulate even to chair. Palpable thrill was present in her left upper extremity fistula. Heart and lung exam were normal with lungs clear to auscultation bilaterally. Postoperative wounds were healing well. She had no evidence of edema. She was obese. She was sent back [facility] in stable condition with plans for resuming outpatient hemodialysis tomorrow on her typical Thursday schedule. I discussed everything with her at time of discharge. Close primary care follow-up is recommended. Total Time Total Time Spent Total Time Spent (In Minutes): 60 Total Time Includes: Examination of the Patient, Discharge Planning, Medication Reconciliation and Communication With Other Providers Discharge Plan Discharge Items Patient Disposition: Transfer Retirement Fac Reason For Visit: Steal Syndrome Left Arm Discharge Diagnosis: Vascular-accessinduced Steal Syndrome (Steal syndrome as complication of dialysis access); s/p Distal Revascularization and Interval Ligation (DRIL) procedure on 10/26/18; Anemia, Acute metabolic encephalopathy, ESRD (end stage renal disease) on dialysis, KUSHAL (obstructive sleep apnea), Obesity with BMI of 41, Insulin Dependent Diabetes Mellitus Condition on Discharge: Good Activity: Resume your previous activity Non-emergency contact: Primary Care Provider Call non-emergency contact if: you have any medication questions, your symptoms worsen, your pain is not controlled, your pain is worsening, your pain is unusual for you, your pain is concerning for you and you have a fever Follow-up/Referrals: Yanet Golden MD [Primary Care Provider] - Diet: Carb Consistent or DM2 and Dialysis Renal Addtl Attending Provider Instructions: Please take all medications as instructed on discharge list below. Please follow-up with your primary care provider within one week of hospital discharge to ensure you are still doing well after having some periods of confusion and lethargy. Please follow all post-op wound instructions per Dr. Chambers and follow-up with him in the office two weeks post-operatively. Please follow-up with your Thread Marker as scheduled. Cont aggressive physical and occupational therapy efforts at receiving facility to get you back to your previous mobility status. It was a pleasure taking care of you! Please call if you have any questions or problems. You can reach a [facility] hospitalist on duty at [facility] 24 hours a day by calling [phone]. Take care of yourself. Samantha Valdez, DO [facility] Pending Studies at Discharge: No Stand-Alone Forms: My [facility] Skilled Items Patient informed of condition?: Yes DNR: No Discharge Level of Care: Skilled Communicable Disease: No Discharge Prognosis: Stable Lines: None Urinary Catheter: No Medications and DC Order Prescriptions: Continued docusate sodium 100 mg Capsule 100 mg PO BID RF: 0 Nephrocaps 1 mg Capsule 1 cap PO QAM RF: 0 clopidogrel 75 mg tablet 75 mg PO DAILY RF: 0 cholecalciferol (vitamin D3) [Vitamin D3] 5,000 unit tablet 5,000 unit PO DAILY RF: 0 nitroglycerin [Nitrostat] 0.4 mg Tablet, Sublingual 0.4 mg Sublingual UD PRN (Reason: Chest Pain) RF: 0 Novolin N NPH U-100 Insulin 100 unit/mL Suspension 26 unit SUBCUT QAM RF: 0 Novolin N NPH U-100 Insulin 100 unit/mL Suspension 22 unit SUBCUT PM RF: 0 gabapentin 300 mg Capsule 300 mg PO QPM RF: 0 ranitidine HCl 150 mg Tablet 150 mg PO QAM RF: 0 aspirin 81 mg Tablet,Delayed Release (Dr/Ec) 81 mg PO QAM RF: 0 sevelamer carbonate [Renvela] 800 mg tablet 800 mg PO TIDM RF: 0 insulin regular human 100 unit/mL Solution 1 sliding scale dose SUBCUT USEASDIRECTD RF: 0 metoprolol succinate [Toprol XL] 25 mg tablet extended release 24 hr 25 mg PO QPM RF: 0 Discontinued atorvastatin 40 mg Tablet 40 mg PO QAM RF: 0 Discharge Orders: Discharge Order (Routine); Ordered 11/07/18 Ordered By: Samantha Valdez Admission Data Admit Date/Time: 10/26/18 07:23 Attending Provider: Samantha Valdez Admit Provider: Gregory Chambers Primary Care Provider: Yanet Golden Other Providers: Lexy Kessler ; Moses Renae ; Rukhsana Escoto I ; Arabella Leo ; Radha Robertson ; Jayden Wasserman ; Ashley Zimmerman ; Vincenzo Izaguirre ; Ashley Ramos ; Foster Lopez ; Vernell Wilson ; Rosalino Freitas ; Vincenzo Vázquez ; Sinai Collier ; Angelic Islas ; Gabriela Liu ; Sandra Renae ; Shira Stokes ; Robel Frey ; Jassi Phan ; Chandu Victoria ; Estefany Golden ; Syeda Onofre ; Samantha Valdez ; Keyur Hall ; Tommy Steele ; Jessa Gutierres ; Bryan Escoto ; Juliana Luciano ; Tommy Dorado ; Gena Doe ; Mary Grossman ; Judith Johnson I. Other Interventions: Discharge Summary Assessment (RN) Last Done: 11/07/18 11:51
== END 2018-11-07 14:49 | DRG 252 ==
LOC: ASU 06:26 → SUATTDRO 07:23 → 3N 07:23 → 2S 10-27 09:11 → 2W 10-30 13:42 → 2E 11-05 12:14